=== PATIENT | male | born 1940 | race Caucasian/White ===

== ENCOUNTER 2018-05-06 07:58 | Day surgery (SDC) | payer OTHER, BC ==
[2018-05-06] MEDS ORDERED: NA CHLORIDE 0.9% 1,000 ML ONE (09:31)
[2018-05-06] MEDS ORDERED: LIDOCAINE 1% MPF 5 ML VIAL ONE (11:08)
[2018-05-06] MEDS ORDERED: PROPOFOL 200 MG/20 ML VIAL IV ONE (11:08)
--- NOTE | 2018-05-06 11:44 | ENDO RPT ---
[address], [address] EGD WITH DILATION PROCEDURE REPORT EXAM DATE: 05/06/2018 PATIENT NAME: Mahnaz Baptiste MR#: [id number] BIRTHDATE: 1940 ATTENDING: Chuckie Clarke Dr STATUS: outpatient CABLE TELEVISION TECHNICIAN: Noa Hardin RN and Lainey Damian INDICATIONS: The patient is a 78 yr old Male here for an EGD with dilation due to dysphagia, nausea and vomiting, bloating, and weight loss PROCEDURE PERFORMED: EGD with biopsy and EGD with dilatation over guidewire MEDICATIONS: Per Anesthesia. TOPICAL ANESTHETIC: none CONSENT: The patient understands the risks and benefits of the procedure and understands that these risks include, but are not limited to: sedation, allergic reaction, infection, perforation and/or bleeding. Alternative means of evaluation and treatment include, among others: physical exam, x-rays, and/or surgical intervention. The patient elects to proceed with this endoscopic procedure. DESCRIPTION OF PROCEDURE: During intra-op preparation period all mechanical medical equipment was checked for proper function. Hand hygiene and appropriate measures for infection prevention was taken. After the risks, benefits and alternatives of the procedure were thoroughly explained, Informed consent was verified, confirmed and timeout was successfully executed by the treatment team. The patient was anesthetized with topical anesthesia and the EG-[id number] ([id number]) endoscope was introduced through the mouth and advanced to the second portion of the duodenum. The instrument was slowly withdrawn as the mucosa was fully examined. A small hiatal hernia was found Mild Atrophic gastritis was found in the antrum. Multiple biopsies were obtained and sent to pathology. Dilation was performed at lower esophagus. DILATOR: SIZE(S): RESISTANCE: HEME: APPEARANCE: Dilator: Savary over guidewire Size(s): 14/15/16 mm Resistance: minimal Heme: none Appearance: adequate COMMENT: Retroflexed views revealed a small hiatal hernia. ADVERSE EVENTS: There were no complications. IMPRESSIONS: 1. Non-obstructive dysphagia, s/p 14/15/16 mm Savary esophagitis 2. A small hiatal hernia 3. Mild atrophic gastritis in the antrum, s/p biopsies RECOMMENDATIONS: 1. await biopsy results 2. acid suppression therapy REPEAT EXAM: Chuckie Clarke Dr eSigned: Chuckie Clarke Dr 05/06/2018 11:43 AM cc: Sheldon Merrill CPT CODES: ICD9 CODES: PATIENT NAME: Mahnaz Baptiste MR#: [id number]
[2018-05-06 12:00] VITALS: TEMP 97.9
[2018-05-06 12:42] VITALS: BP 146/50; O2SAT 100
== END 2018-05-06 12:22 | disposition home or self-care (01) ==
LOC: OR 07:58
PROVIDERS: ATTEND Internal Medicine Gastroenterology
PROC: 0DB78ZX Excision of Stomach, Pylorus, Via Natural or Artificial Opening Endoscopic, Diagnostic (ICD-10-PCS; 2018-05-06)
PROC: 0D738ZZ Dilation of Lower Esophagus, Via Natural or Artificial Opening Endoscopic (ICD-10-PCS; 2018-05-06)
PROC: 0DB58ZX Excision of Esophagus, Via Natural or Artificial Opening Endoscopic, Diagnostic (ICD-10-PCS; principal; 2018-05-06 11:30)
DX: K29.40 Chronic atrophic gastritis without bleeding (principal); K20.9 Esophagitis, unspecified; K44.9 Diaphragmatic hernia without obstruction or gangrene; R13.10 Dysphagia, unspecified; Z86.010 Personal history of colon polyps; E11.9 Type 2 diabetes mellitus without complications; Z79.4 Long term (current) use of insulin; I10 Essential (primary) hypertension; I25.2 Old myocardial infarction; F17.210 Nicotine dependence, cigarettes, uncomplicated
CPT/HCPCS: 43239; 43248; 82962; 88305; 88312; J7030

== ENCOUNTER 2018-05-07 04:57 | Emergency (ER) | payer OTHER, BC ==
[2018-05-07] MEDS ORDERED: FLEET ENEMA ADULT PR ONE (05:17)
--- NOTE | 2018-05-07 05:33 | EDPHYS ---
Physician Documentation [facility] Name: Mahnaz Baptiste Age: 78 yrs Sex: Male : 1940 Arrival Date: 05/07/2018 Time: 04:58 Bed 16 Private MD: Barrington Merrill S ED Physician Randall Mane HPI: 05/07 05:13 This 78 yrs old Male presents to ER via Ambulatory with complaints of rn Constipation. 05:13 The patient presents to the emergency department with constipation. Onset: The rn symptoms/episode began/occurred today. Possible causes:. The symptoms are aggravated by nothing. The symptoms are alleviated by nothing. Associated signs and symptoms: Pertinent positives: constipation, Pertinent negatives: fever, GI bleeding, nausea, vomiting. Severity of symptoms: At their worst the symptoms were mild in the emergency department the symptoms are unchanged. The patient has experienced similar episodes in the past. Reports chronic pain, takes oxycontin, has has rectal fecal impaction before, reports happening again, no abd pain/nausea/vomiting/fever, + rectal pressure, cannot poop. . Historical: - Allergies: 05:10 Morphine; bb - Home Meds: 05:10 Lisinopril Oral [Active]; gabapentin oral oral [Active]; OxyContin Oral [Active]; Stool bb Softener oral oral [Active]; Insulin: Regular Sub-Q [Active]; - PMHx: 05:10 Hypertension; Myocardial infarction; Chronic pain; neuropathy; bb - PSHx: 05:10 Knee surgery; STENTS; BACK SURGERY x 5; Cholecystectomy; AMPUTATED FINGER; Appendectomy;bb - Immunization history:: Adult Immunizations up to date, Flu vaccine is not up to date. - Social history:: Smoking status: Patient uses tobacco products, smokes two packs cigarettes per day. Patient/guardian denies using alcohol, street drugs. - Ebola Screening: : Patient negative for fever greater than or equal to 101.5 degrees Fahrenheit, and additional compatible Ebola Virus Disease symptoms Patient denies exposure to infectious person Patient denies travel to an Ebola-affected area in the 21 days before illness onset. - Family history:: not pertinent. - Hospitalizations: : No recent hospitalization is reported. ROS: 05:13 Constitutional: Negative for fever, chills, and weight loss, Eyes: Negative for injury, rn pain, redness, and discharge, Neck: Negative for injury, pain, and swelling, Cardiovascular: Negative for chest pain, palpitations, and edema, Respiratory: Negative for shortness of breath, cough, wheezing, and pleuritic chest pain, Abdomen/GI: Negative for abdominal pain, nausea, vomiting, diarrhea MS/Extremity: Negative for injury and deformity, Skin: Negative for injury, rash, and discoloration, Neuro: Negative for headache, weakness, numbness, tingling, and seizure. Exam: 05:13 Constitutional: This is a well developed, well nourished patient who is awake, alert, rn and in no acute distress. Head/Face: Normocephalic, atraumatic. Eyes: Pupils equal round and reactive to light, extra-ocular motions intact. Lids and lashes normal. Conjunctiva and sclera are non-icteric and not injected. Cornea within normal limits. Periorbital areas with no swelling, redness, or edema. ENT: MMM Cardiovascular: Regular rate and rhythm with a normal S1 and S2. No gallops, murmurs, or rubs. Normal PMI, no JVD. No pulse deficits. Respiratory: Lungs have equal breath sounds bilaterally, clear to auscultation and percussion. No rales, rhonchi or wheezes noted. No increased work of breathing, no retractions or nasal flaring. Abdomen/GI: Soft, non-tender, with normal bowel sounds. No distension or tympany. No guarding or rebound. No evidence of tenderness throughout. MS/ Extremity: Pulses equal, no cyanosis. Neurovascular intact. Full, normal range of motion. Equal circumference. Neuro: Awake and alert, GCS 15, oriented to person, place, time, and situation. Cranial nerves II-XII grossly intact. Motor strength 5/5 in all extremities. Sensory grossly intact. Vital Signs: 05:10 BP 119 / 76; Pulse 88; Resp 18 S; Temp 97.7(O); Pulse Ox 95% on R/A; Weight 94.35 kg bb (R); Height 5 ft. 10 in. (177.80 cm) (R); Pain 8/10; 05:10 Body Mass Index 29.84 (94.35 kg, 177.80 cm) bb MDM: 05:09 Patient medically screened. rn 05:31 Differential diagnosis: constipation. Data reviewed: vital signs, nurses notes, and as rn a result, I will discharge patient. Counseling: I had a detailed discussion with the patient and/or guardian regarding: the historical points, exam findings, and any diagnostic results supporting the discharge/admit diagnosis, the need for outpatient follow up, to return to the emergency department if symptoms worsen or persist or if there are any questions or concerns that arise at home. Medication response: enema. Response to treatment: the patient's symptoms have markedly improved after treatment, the patient's condition has returned to base line, and as a result, I will discharge patient. Special discussion: I discussed with the patient/guardian in detail that at this point there is no indication for admission to the hospital. It is understood, however, that if the symptoms persist or worsen the patient needs to return immediately for re-evaluation. Administered Medications: 05:15 Drug: Fleet Enema 133 ml Route: NH; rv 05:25 Follow up: Response: Other; patient able to move bowel. rv Disposition: 05/07/18 05:32 Discharged to Home. Impression: Constipation, unspecified. - Condition is Stable. - Discharge Instructions: Constipation, Adult. - Medication Reconciliation Form, Thank You Letter, Antibiotic Education, Prescription Opioid Use form. - Follow up: Private Physician; When: As needed; Reason: Recheck today's complaints, Re-evaluation by your physician. - Problem is new. - Symptoms have improved. Signatures: Denise Torres RN RN Randall Oh MD MD rn Vicente, Ronaldo, RN RN rv Corrections: (The following items were deleted from the chart) 05:41 05:32 05/07/2018 05:32 Discharged to Home. Impression: Constipation, unspecified. rv Condition is Stable. Forms are Medication Reconciliation Form, Thank You Letter, Antibiotic Education, Prescription Opioid Use. Follow up: Private Physician; When: As needed; Reason: Recheck today's complaints, Re-evaluation by your physician. Problem is new. Symptoms have improved. rn
--- NOTE | 2018-05-07 05:33 | ER ---
Nurse's Notes [facility] Name: Mahnaz Baptiste Age: 78 yrs Sex: Male : 1940 Arrival Date: 05/07/2018 Time: 04:58 Bed 16 Private MD: Barrington Merrill S Diagnosis: Constipation, unspecified Presentation: 05/07 05:07 Presenting complaint: Patient states: he is constipated since this morning and is bb having rectal pain 8/ pt takes oxycontin for chronic pain along with a stool softner. Transition of care: patient was not received from another setting of care. Onset of symptoms was May 07, 2018. Risk Assessment: Do you want to hurt yourself or someone else? Patient reports no desire to harm self or others. Initial Sepsis Screen: Does the patient meet any 2 criteria? No. Patient's initial sepsis screen is negative. Does the patient have a suspected source of infection? No. Patient's initial sepsis screen is negative. Care prior to arrival: None. 05:07 Method Of Arrival: Ambulatory bb 05:07 Acuity: ZIA 3 bb Historical: - Allergies: 05:10 Morphine; bb - Home Meds: 05:10 Lisinopril Oral [Active]; gabapentin oral oral [Active]; OxyContin Oral [Active]; Stool bb Softener oral oral [Active]; Insulin: Regular Sub-Q [Active]; - PMHx: 05:10 Hypertension; Myocardial infarction; Chronic pain; neuropathy; bb - PSHx: 05:10 Knee surgery; STENTS; BACK SURGERY x 5; Cholecystectomy; AMPUTATED FINGER; Appendectomy;bb - Immunization history:: Adult Immunizations up to date, Flu vaccine is not up to date. - Social history:: Smoking status: Patient uses tobacco products, smokes two packs cigarettes per day. Patient/guardian denies using alcohol, street drugs. - Ebola Screening: : Patient negative for fever greater than or equal to 101.5 degrees Fahrenheit, and additional compatible Ebola Virus Disease symptoms Patient denies exposure to infectious person Patient denies travel to an Ebola-affected area in the 21 days before illness onset. - Family history:: not pertinent. - Hospitalizations: : No recent hospitalization is reported. Screenin:12 Abuse screen: Denies threats or abuse. Denies injuries from another. Nutritional rv screening: No deficits noted. Tuberculosis screening: No symptoms or risk factors identified. Fall Risk None identified. Assessment: 05:11 General: Appears in no apparent distress. uncomfortable, Behavior is calm, cooperative. rv Pain: Denies pain. Neuro: Level of Consciousness is awake, alert, obeys commands, Oriented to person, place, time, situation. Cardiovascular: Capillary refill < 3 seconds. Respiratory: Airway is patent. GI: Bowel sounds present X 4 quads. Abd is soft and non tender X 4 quads. : No signs and/or symptoms were reported regarding the genitourinary system. EENT: No signs and/or symptoms were reported regarding the EENT system. Derm: Skin is intact. Musculoskeletal: No signs and/or symptoms reported regarding the musculoskeletal system. Vital Signs: 05:10 BP 119 / 76; Pulse 88; Resp 18 S; Temp 97.7(O); Pulse Ox 95% on R/A; Weight 94.35 kg bb (R); Height 5 ft. 10 in. (177.80 cm) (R); Pain 8/10; 05:10 Body Mass Index 29.84 (94.35 kg, 177.80 cm) bb ED Course: 04:58 Patient arrived in ED. ds1 04:58 Barrington Merrill MD is Private Physician. ds1 05:08 Triage completed. bb 05:09 Randall Mane MD is Attending Physician. rn 05:10 Arm band placed on Patient placed in an exam room, on a stretcher, on pulse oximetry. bb Family accompanied patient. 05:12 Patient has correct armband on for positive identification. Placed in gown. Bed in low rv position. Call light in reach. Side rails up X2. Adult w/ patient. Pulse ox on. NIBP on. 05:26 Fleets enema given. Patient tolerated well able to move bowel.. rv 05:41 No provider procedures requiring assistance completed. Patient did not have IV access rv during this emergency room visit. Administered Medications: 05:15 Drug: Fleet Enema 133 ml Route: [place]; rv 05:25 Follow up: Response: Other; patient able to move bowel. rv Outcome: 05:32 Discharge ordered by . rn 05:41 Discharged to home ambulatory. rv 05:41 Condition: improved 05:41 Discharge instructions given to patient, Instructed on discharge instructions. 05:41 Patient left the ED. rv Signatures: Melania Walden ds1 Denise Torres RN RN bb Randall Mane MD MD rn Vicente, Ronaldo, RN RN rv
[2018-05-07 05:45] VITALS: BP 119/76; TEMP 97.7; O2SAT 95
== END 2018-05-07 05:41 | disposition home or self-care (01) ==
LOC: ER 04:57
DX: K59.00 Constipation, unspecified (principal); I10 Essential (primary) hypertension; I25.2 Old myocardial infarction; F17.210 Nicotine dependence, cigarettes, uncomplicated
CPT/HCPCS: 99284

== ENCOUNTER 2018-08-29 10:10 | Emergency (ER) | payer OTHER, BC ==
--- NOTE | 2018-08-29 10:59 | ER ---
Nurse's Notes [facility] Name: Mahnaz Baptiste Age: 78 yrs Sex: Male : 1940 Arrival Date: 08/29/2018 Time: 10:23 Bed 13 Private MD: Diagnosis: Constipation, unspecified Presentation: 08/29 10:36 Presenting complaint: Patient states: has not had a BM in 8 days, hx of constipation, iw has been taking laxatives and stool softeners with no relief. Transition of care: patient was not received from another setting of care. Onset of symptoms was August 21, 2018. Risk Assessment: Do you want to hurt yourself or someone else? Patient reports no desire to harm self or others. Initial Sepsis Screen: Does the patient meet any 2 criteria? No. Patient's initial sepsis screen is negative. Does the patient have a suspected source of infection? No. Patient's initial sepsis screen is negative. Care prior to arrival: None. 10:36 Method Of Arrival: Wheelchair iw 10:36 Acuity: ZIA 3 iw Historical: - Allergies: 10:38 Morphine; iw - PMHx: 10:38 Chronic pain; Hypertension; Myocardial infarction; neuropathy; iw - PSHx: 10:38 Knee surgery; Heart stents; BACK SURGERY x 5; AMPUTATED FINGER; iw 10:40 Fentanyl Pain Pump; aa5 - Immunization history:: Adult Immunizations not up to date. - Social history:: Smoking status: Patient uses tobacco products, smokes one pack cigarettes per day. - Ebola Screening: : Patient negative for fever greater than or equal to 101.5 degrees Fahrenheit, and additional compatible Ebola Virus Disease symptoms Patient denies exposure to infectious person Patient denies travel to an Ebola-affected area in the 21 days before illness onset No symptoms or risks identified at this time. Screenin:40 Abuse screen: Denies threats or abuse. Nutritional screening: No deficits noted. aa5 Tuberculosis screening: No symptoms or risk factors identified. Assessment: 10:40 General: Appears comfortable, Behavior is calm, cooperative. Pain: Complains of pain in aa5 right lower quadrant and left lower quadrant Pain does not radiate. Pain currently is 5 out of 10 on a pain scale. Quality of pain is described as pressure, Pain began 2-3 days ago. Is continuous. Neuro: Level of Consciousness is awake, alert, obeys commands, Oriented to person, place, time, situation. Cardiovascular: Heart tones S1 S2 present Rhythm is regular. Respiratory: Airway is patent Respiratory effort is even, unlabored, Respiratory pattern is regular, symmetrical, Breath sounds are clear bilaterally. GI: Abdomen is round non-distended, Pt reports last BM was 8 days ago Bowel sounds present X 4 quads. Abd is soft and non tender X 4 quads. Reports lower abdominal pain, Patient currently denies nausea, vomiting. : No signs and/or symptoms were reported regarding the genitourinary system. Denies inability to void. EENT: No signs and/or symptoms were reported regarding the EENT system. Derm: Skin is pink, warm \\T\\ dry. Musculoskeletal: Range of motion: intact in all extremities. 10:58 Reassessment: Patient is alert, oriented x 3, equal unlabored respirations, skin aa5 warm/dry/pink. Vital Signs: 10:38 BP 127 / 54; Pulse 80; Resp 16; Temp 98.2; Pulse Ox 96% on R/A; Weight 86.18 kg; Height iw 5 ft. 10 in. (177.80 cm); Pain 7/10; 10:50 BP 125 / 60; Pulse 78; Resp 16 S; Pulse Ox 97% on R/A; aa5 10:38 Body Mass Index 27.26 (86.18 kg, 177.80 cm) iw ED Course: 10:23 Patient arrived in ED. tw3 10:35 Tootie Parks, RN is Primary Nurse. aa5 10:37 Triage completed. iw 10:38 Arm band placed on. iw 10:40 Patient has correct armband on for positive identification. Bed in low position. Call aa5 light in reach. Side rails up X2. Adult w/ patient. 10:44 Geovanni Briones NP is PHCP. pm1 10:44 Benito Corley MD is Attending Physician. pm1 10:58 No provider procedures requiring assistance completed. aa5 10:58 Patient did not have IV access during this emergency room visit. aa5 Administered Medications: No medications were administered Outcome: 10:58 Discharge ordered by . pm1 10:58 Discharged to home via wheelchair, with family. aa5 10:58 Condition: stable 10:58 Discharge instructions given to N/A. Pt left before d/c instructions. Pt states "I'm aa5 just going to buy an enema at the pharmacy" 11:00 Patient left the ED. aa5 Signatures: Chastity Dinh RN RN iw Tootie Parks RN RN aa5 Geovanni Briones, FIBERGLASS TECHNICIAN FIBERGLASS TECHNICIAN pm1 Levi, Eli tw3 Corrections: (The following items were deleted from the chart) 10:37 10:36 Acuity: ZIA 4 florencio matias
--- NOTE | 2018-08-29 10:59 | EDPHYS ---
Physician Documentation [facility] Name: Mahnaz Baptiste Age: 78 yrs Sex: Male : 1940 Arrival Date: 08/29/2018 Time: 10:23 Bed 13 Private MD: ED Physician Benito Corley HPI: 08/29 10:57 This 78 yrs old Male presents to ER via Wheelchair with complaints of pm1 Constipation. 10:57 Onset: The symptoms/episode began/occurred 8 day(s) ago. Associated signs and symptoms: pm1 Pertinent negatives: nausea, vomiting, and diarrhea, chest pain, fever, shortness of breath. Modifying factors: The symptoms are alleviated by nothing, the symptoms are aggravated by medication(s), pain medications. Severity of pain: in the emergency department the pain is a 0 / 10. The patient has experienced similar episodes in the past, several times. Patient without bowel movement for 8 days. Feels like the bowel movement is just about to come out. Historical: - Allergies: 10:38 Morphine; iw - PMHx: 10:38 Chronic pain; Hypertension; Myocardial infarction; neuropathy; iw - PSHx: 10:38 Knee surgery; Heart stents; BACK SURGERY x 5; AMPUTATED FINGER; iw 10:40 Fentanyl Pain Pump; aa5 - Immunization history:: Adult Immunizations not up to date. - Social history:: Smoking status: Patient uses tobacco products, smokes one pack cigarettes per day. - Ebola Screening: : Patient negative for fever greater than or equal to 101.5 degrees Fahrenheit, and additional compatible Ebola Virus Disease symptoms Patient denies exposure to infectious person Patient denies travel to an Ebola-affected area in the 21 days before illness onset No symptoms or risks identified at this time. ROS: 10:57 Constitutional: Negative for fever, chills, and weight loss, Cardiovascular: Negative pm1 for chest pain, palpitations, and edema, Respiratory: Negative for shortness of breath, cough, wheezing, and pleuritic chest pain, Back: Negative for injury and pain, Neuro: Negative for headache, weakness, numbness, tingling, and seizure. 10:57 Abdomen/GI: Positive for constipation, Negative for abdominal pain, nausea, vomiting, and diarrhea. Exam: 10:57 Constitutional: This is a well developed, well nourished patient who is awake, alert, pm1 and in no acute distress. 10:57 Unable to obtain exam due to Patient refused physical examination. He wants to leave to purchase an enema at the local store. Vital Signs: 10:38 BP 127 / 54; Pulse 80; Resp 16; Temp 98.2; Pulse Ox 96% on R/A; Weight 86.18 kg; Height iw 5 ft. 10 in. (177.80 cm); Pain 7/10; 10:50 BP 125 / 60; Pulse 78; Resp 16 S; Pulse Ox 97% on R/A; aa5 10:38 Body Mass Index 27.26 (86.18 kg, 177.80 cm) iw MDM: 10:57 Patient medically screened. pm1 10:57 Data reviewed: vital signs. Counseling: I had a detailed discussion with the patient pm1 and/or guardian regarding: the historical points, exam findings, and any diagnostic results supporting the discharge/admit diagnosis, the need for outpatient follow up, to return to the emergency department if symptoms worsen or persist or if there are any questions or concerns that arise at home. 10:57 Refusal of service: The patient/guardian displays adequate decision making capability pm1 and despite a detailed discussion of alternatives, benefits, risks, and consequences refuses: Physical evaluation and treatment for his constipation. Patient wants to go home and purchase an enema from the local store. instructed that patient that he may return at any tome to the emergency department for treatment and evaluation of his constipation. Administered Medications: No medications were administered Disposition: 11:29 Co-signature as Attending Physician, Benito Corley MD I agree with the assessment and kdr plan of care. Disposition: 08/29/18 10:58 Discharged to Home. Impression: Constipation, unspecified. - Condition is Undetermined. - Discharge Instructions: Constipation, Adult. - Medication Reconciliation Form, Thank You Letter, Prescription Opioid Use form. - Follow up: Emergency Department; When: As needed; Reason: Recheck today's complaints, Continuance of care, Re-evaluation by your physician. Follow up: Private Physician; When: As needed; Reason: Recheck today's complaints, Continuance of care, Re-evaluation by your physician. - Problem is new. - Symptoms are unchanged. Signatures: Benito Corley MD MD kdr Chastity Dinh RN RN iw Tootie Parks RN RN aa5 Geovanni Briones, THREAD REELER THREAD REELER pm1 Corrections: (The following items were deleted from the chart) 11:00 10:58 08/29/2018 10:58 Discharged to Home. Impression: Constipation, unspecified. aa5 Condition is Undetermined. Forms are Medication Reconciliation Form, Thank You Letter, Antibiotic Education, Prescription Opioid Use. Follow up: Emergency Department; When: As needed; Reason: Recheck today's complaints, Continuance of care, Re-evaluation by your physician. Follow up: Private Physician; When: As needed; Reason: Recheck today's complaints, Continuance of care, Re-evaluation by your physician. Problem is new. Symptoms are unchanged. pm1
[2018-08-29 11:04] VITALS: BP 127/54; TEMP 98.2; O2SAT 96
== END 2018-08-29 11:00 | disposition home or self-care (01) ==
LOC: ER 10:10
DX: K59.00 Constipation, unspecified (principal); F17.210 Nicotine dependence, cigarettes, uncomplicated; Z88.6 Allergy status to analgesic agent
CPT/HCPCS: 99281

== ENCOUNTER 2019-07-04 10:38 | Emergency (ER) | payer OTHER, BC ==
--- OUTSIDE RECORDS SUMMARY | 2019-07-04 10:40 | XMS REPORT ---
:1940 [facility] Address [address] [place] [address] [place] [id number] Care Team Providers Name Role Phone Unavailable Unavailable Unavailable Problems This patient has no known problems. Allergies, Adverse Reactions, Alerts This patient has no known allergies or adverse reactions. Medications This patient has no known medications. Encounters Start End Encounter Admission Attending Care Care Encounter Date/Time Date/Time Type Type Clinicians Facility Department ID 2019-06-24 2019-06-23 Inpatient [id number] 13:43:00 15:31:00
--- OUTSIDE RECORDS SUMMARY | 2019-07-04 10:42 | XMS REPORT | Summary of Care ---
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 Encounter Details Date Type Department Care Team Description 07/03/2019 Orders Only [facility] Doctor Unassigned, No [address] [facility] [place], [place] [id number] [place] [id number] Allergies Active Allergy Reactions Severity Noted Date Comments Morphine Nausea and/or Vomiting High 10/21/2009 documented as of this encounter (statuses as of 07/03/2019) Medications Medication Sig Dispensed Refills Start Date End Date Status Insulin Syringe-Needle inject 35 Units 100 Syringe 0 10/08/2016 Active U-100 (SURE COMFORT under the skin INSULIN SYRINGE) 1 mL daily. 31 gauge x 5/16 Syrg terazosin 2 mg capsule Take 2 mg by 0 08/16/2017 Active mouth daily. HUMALOG MIX 75-25 35 UNITS Q AM, 15 mL 2 12/20/2017 Active KWIKPEN 100 unit/mL 25 UNITS Q PM (75-25) injection lisinopril 10 mg tablet Take 1 tablet 30 tablet 5 05/09/2018 Active by mouth daily. lactulose 10 gram/15 mL Take 15 mL by 900 mL 2 05/09/2018 Active (15 mL) Soln mouth 2 (two) times daily. metoclopramide HCl Take 1 tablet 120 tablet 2 07/15/2018 Active (REGLAN) 10 mg tablet by mouth before meals and at bedtime. EDLLVAKLMXIBS-TRMQ-KLHK TAKE ONE 50 capsule 5 09/09/2018 Active LBITAL per capsule CAPSULE BY MOUTH EVERY FOUR HOURS NEEDED FOR PAIN ondansetron (ZOFRAN Take 1 tablet 60 tablet 1 01/01/2019 Active ODT) 8 mg by mouth every disintegrating 8 (eight) hours tabletIndications: as needed for Vomiting, Nausea and intractability of Vomiting (N/V). vomiting not specified, presence of nausea not specified, unspecified vomiting type SIMVASTATIN 20 mg TAKE ONE TABLET 30 tablet 3 02/09/2019 Active tablet BY MOUTH EVERY DAY ALPRAZOLAM 1 mg TAKE ONE TABLET 90 tablet 2 02/09/2019 Active tabletIndications: BY MOUTH THREE Anxiety TIMES A DAY NEEDED FOR ANXIETY blood sugar diagnostic USE DIRECTED 100 Strip 2 02/23/2019 Active (TRUE METRIX GLUCOSE 3 TIMES A DAY TEST STRIP) strip AND NEEDED TO MONITOR BLOOD GLUCOSE, Dx: E11.9 omeprazole 40 mg Take 1 capsule 30 capsule 0 03/03/2019 Active capsuleIndications: by mouth daily. Gastroesophageal reflux disease, esophagitis presence not specified GABAPENTIN 600 mg TAKE ONE TABLET 90 tablet 4 03/16/2019 Active tablet BY MOUTH THREE TIMES DAILY aspirin 81 mg chewable Take 1 tablet 30 tablet 0 04/26/2019 Active tabletIndications: COPD by mouth daily. (chronic obstructive pulmonary disease) with acute bronchitis ipratropium-albuterol Inhale 3 mL 120 Vial 0 04/25/2019 Active 0.5 mg-3 mg(2.5 mg every 4 (four) base)/3 mL nebulizer hours as needed solutionIndications: for Wheezing. COPD (chronic obstructive pulmonary disease) with acute bronchitis fluticasone-salmeterol Inhale 1 Puff 60 Each 0 04/25/2019 Active 250-50 mcg/dose every 12 inhalation (twelve) hours. diskIndications: COPD (chronic obstructive pulmonary disease) with acute bronchitis PROAIR HFA 90 INHALE 2 PUFFS 8.5 g 0 04/29/2019 Active mcg/actuation inhaler BY MOUTH EVERY 6 HOURS NEEDED FOR SHORTNESS OF BREATH azithromycin 250 mg Take 1 tablet 6 tablet 0 04/30/2019 Active tablet by mouth daily. Take 500 mg day 1, then 250 mg days 2 to 5. mupirocin 2 % Apply to 22 g 0 05/13/2019 Active ointmentIndications: area(s) 3 Open wound of left (three) times knee, leg, and ankle daily. with complication, subsequent encounter sulfamethoxazole-trimet Take 1 tablet 20 tablet 0 05/13/2019 Active hoprim (BACTRIM DS) by mouth 2 800-160 mg per (two) times tabletIndications: Open daily. wound of left knee, leg, and ankle with complication, subsequent encounter traZODONE 50 mg TAKE 1 TABLET 30 tablet 5 05/27/2019 Active tabletIndications: BY MOUTH AT Insomnia, unspecified BEDTIME type citalopram 40 mg Take 1 tablet 30 tablet 5 05/27/2019 Active tabletIndications: by mouth daily. Depression, unspecified depression type oxyCODONE CR 80 mg 12 Take 1 tablet 90 tablet 0 06/24/2019 Active hour tabletIndications: by mouth 3 Primary osteoarthritis (three) times involving multiple daily as needed joints for Pain. documented as of this encounter (statuses as of 07/03/2019) Active Problems Problem Noted Date CARCAMO (dyspnea on exertion) 04/26/2019 Chronic atrial fibrillation 04/26/2019 Pneumonia 04/23/2019 Intractable vomiting 04/29/2018 Elevated troponin 10/20/2017 Coronary artery disease involving [place] coronary artery of [place] heart 10/20 without angina pectoris Vomiting 10/20/2017 Stage 3 chronic kidney disease 10/20/2017 Obesity (BMI 30-39.9) 11/06/2016 JUAREZ (generalized anxiety disorder) 09/28/2015 Insomnia 09/28/2015 Sleep apnea 09/28/2015 Hypercholesterolemia 09/28/2015 Reflux esophagitis 09/28/2015 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, uncontrolled(250.62) Diabetes mellitus 10/21/2009 Essential hypertension, benign 10/21/2009 Osteoarthritis of multiple joints 10/21/2009 HLD (hyperlipidemia) 10/21/2009 Overview: ICD10 Diagnosis Term Director Industrial Nursing Utility CARMEN (obstructive sleep apnea) 10/21/2009 documented as of this encounter (statuses as of 07/03/2019) Immunizations Name Administration Dates Next Due Td 02/05/2018 Tdap 11/24/2015 documented as of this encounter Social History Tobacco Use Types Packs/Day Years Used Date Current Every Day Smoker Cigarettes 1 40 Smokeless Tobacco: Never Used Comments: 1 pack/day Alcohol Use Drinks/Week oz/Week Comments No 0 Standard drinks or equivalent 0.0 Sex Assigned at Date Recorded Not on file Job Start Date Occupation Industry Not on file Not on file Not on file Travel History Travel Start Travel End No recent travel history available. 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 Clinical Medical Tristan Nails, DO [address] [place] [address] Arrived Laboratory 1, [facility] 07/23/2019 Office Visit Family Medicine Barrington Merrill MD [address] [place] [phone] Health Maintenance Due Date Last Done Comments EYE EXAM 1950 FOOT EXAM 1959 Zoster Recombinant Vaccine 1991 (SHINGRIX) (1 of 2) Medicare Wellness Visit 2006 PNEUMOCOCCAL VACCINES 65+ (1 of 2 2006 - PCV13) INFLUENZA VACCINE (Retired 07/12/2019 version) LDL-C 10/04/2019 10/04/2018 HgA1C 10/23/2019 04/23/2019, 03/26/2019, 01/01/2019, Additional history exists URINE MICROALBUMIN 01/01/2020 01/01/2019, 10/04/2018, 03/01/2018, Additional history exists LUNG CANCER SCREEN: Recommended 04/23/2020 04/23/2019 for age 55-80 with 30 + pack year history CREATININE (SERUM) 04/24/2020 04/24/2019, 04/23/2019, 03/26/2019, Additional history exists DTaP,Tdap,and Td Vaccines (3 - Td) 02/06/2028 02/05/2018, 11/24/2015 documented as of this encounter Implants Implanted Type Area Envelope Addresser Device Shelf Model / Identifier Expiration Serial / Lot Date Lens LENS Right: Eye Mello 08/10/2020 [id number] / Implanted: Qty: 1 on 12/14/2015 by Nikhil Hou MD at [facility] [id number] / [id number] Acrysof Iq LENS Left: Eye Mello 07/11/2020 [id number] / Implanted: Qty: 1 on 01/11/2016 by Nikhil Hou MD at [facility] [id number] / [id number] Sutureless Pump Connector Revision Kit Pump Right: Medtronic 8578 / Implanted: Qty: 1 on 01/14/2017 by Leonel Aguilar MD at [facility] Abdomen [id number] / [id number] Synchromed Ii Programmable Pump Pump Right: Medtronic 05/24/2018 8637- 20 / Implanted: Qty: 1 on 01/14/2017 by Leonel Aguilar MD at [facility] Abdomen [id number] / [id number] documented as of this encounter Procedures Procedure Name Priority Date/Time Associated Diagnosis Comments ASSIGNMENT OF BENEFITS Routine 07/03/2019 8:57 AM CDT documented in this encounter Results Not on filedocumented in this encounter Insurance Payer Benefit Plan / Subscriber ID Effective Phone Address Type Group Dates MEDICARE MEDICARE PART A xxxxxxxxxxx 1998-Pres [phone] [address] Medicare & B ent [phone] [id number] [place] [address] BCBS OF BCBS [id number] 2017-Pres [phone] Medicare [place] TRADITION[place] ent [phone] [id number] [place] [address] documented as of this encounter Advance Directives Name Relationship Healthcare Agent Communication Relationship Stefany Baptiste Spouse Primary healthcare agent
--- OUTSIDE RECORDS SUMMARY | 2019-07-04 10:42 | XMS REPORT | Summary of Care ---
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 [address] [place] [address] Allergies Active Allergy Reactions Severity Noted Date Comments Morphine Nausea and/or Vomiting High 10/21/2009 documented as of this encounter (statuses as of 06/24/2019) Medications Medication Sig Dispensed Refills Start End Date Status Date Insulin inject 35 100 Syringe 0 Active Syringe-Needle U-100 Units under 6 (SURE COMFORT INSULIN the skin SYRINGE) 1 mL 31 daily. gauge x 5/16 Syrg terazosin 2 mg Take 2 mg by 0 Active capsule mouth daily. 7 HUMALOG MIX 75-25 35 UNITS Q AM, 15 mL 2 Active KWIKPEN 100 unit/mL 25 UNITS Q PM 8 (75-25) injection lisinopril 10 mg Take 1 tablet 30 tablet 5 Active tablet by mouth 8 daily. lactulose 10 gram/15 Take 15 mL by 900 mL 2 Active mL (15 mL) Soln mouth 2 (two) 8 times daily. metoclopramide HCl Take 1 tablet 120 tablet 2 Active (REGLAN) 10 mg tablet by mouth 8 before meals and at bedtime. CLQKVGHKKAMED-OMOX-DM TAKE ONE 50 capsule 5 Active TALBITAL per capsule CAPSULE BY 8 MOUTH EVERY FOUR HOURS NEEDED FOR PAIN ondansetron (ZOFRAN Take 1 tablet 60 tablet 1 Active ODT) 8 mg by mouth every 9 disintegrating 8 (eight) tabletIndications: hours as Vomiting, needed for intractability of Nausea and vomiting not Vomiting specified, presence (N/V). of nausea not specified, unspecified vomiting type SIMVASTATIN 20 mg TAKE ONE 30 tablet 3 Active tablet TABLET BY 9 MOUTH EVERY DAY ALPRAZOLAM 1 mg TAKE ONE 90 tablet 2 Active tabletIndications: TABLET BY 9 Anxiety MOUTH THREE TIMES A DAY NEEDED FOR ANXIETY blood sugar USE 100 Strip 2 Active diagnostic (TRUE DIRECTED 3 9 METRIX GLUCOSE TEST TIMES A DAY STRIP) strip AND NEEDED TO MONITOR BLOOD GLUCOSE, Dx: E11.9 omeprazole 40 mg Take 1 capsule 30 capsule 0 Active capsuleIndications: by mouth 9 Gastroesophageal daily. reflux disease, esophagitis presence not specified GABAPENTIN 600 mg TAKE ONE 90 tablet 4 Active tablet TABLET BY 9 MOUTH THREE TIMES DAILY aspirin 81 mg Take 1 tablet 30 tablet 0 Active chewable by mouth 9 tabletIndications: daily. COPD (chronic obstructive pulmonary disease) with acute bronchitis ipratropium-albuterol Inhale 3 mL 120 Vial 0 Active 0.5 mg-3 mg(2.5 mg every 4 (four) 9 base)/3 mL nebulizer hours as solutionIndications: needed for COPD (chronic Wheezing. obstructive pulmonary disease) with acute bronchitis fluticasone-salmetero Inhale 1 Puff 60 Each 0 Active l 250-50 mcg/dose every 12 9 inhalation (twelve) diskIndications: COPD hours. (chronic obstructive pulmonary disease) with acute bronchitis PROAIR HFA 90 INHALE 2 PUFFS 8.5 g 0 Active mcg/actuation inhaler BY MOUTH EVERY 9 6 HOURS NEEDED FOR SHORTNESS OF BREATH azithromycin 250 mg Take 1 tablet 6 tablet 0 Active tablet by mouth 9 daily. Take 500 mg day 1, then 250 mg days 2 to 5. mupirocin 2 % Apply to 22 g 0 Active ointmentIndications: area(s) 3 9 Open wound of left (three) times knee, leg, and ankle daily. with complication, subsequent encounter sulfamethoxazole-trim Take 1 tablet 20 tablet 0 Active ethoprim (BACTRIM DS) by mouth 2 9 800-160 mg per (two) times tabletIndications: daily. Open wound of left knee, leg, and ankle with complication, subsequent encounter traZODONE 50 mg TAKE 1 TABLET 30 tablet 5 Active tabletIndications: BY MOUTH AT 9 Insomnia, unspecified BEDTIME type citalopram 40 mg Take 1 tablet 30 tablet 5 Active tabletIndications: by mouth 9 Depression, daily. unspecified depression type oxyCODONE CR 80 mg 12 Take 1 tablet 90 tablet 0 Active hour by mouth 3 9 tabletIndications: (three) times Primary daily as osteoarthritis needed for involving multiple Pain. joints oxyCODONE CR 80 mg 12 Take 1 tablet 90 tablet 0 06/24/20 Discontinued hour by mouth 3 9 19 tabletIndications: (three) times Primary daily as osteoarthritis needed for involving multiple Pain. joints documented as of this encounter (statuses as of 06/24/2019) Active Problems Problem Noted Date CARCAMO (dyspnea on exertion) 04/26/2019 Chronic atrial fibrillation 04/26/2019 Pneumonia 04/23/2019 Intractable vomiting 04/29/2018 Elevated troponin 10/20/2017 Coronary artery disease involving [place] coronary artery of [place] heart 10/20 without angina pectoris Vomiting 10/20/2017 Stage 3 chronic kidney disease 10/20/2017 Obesity (BMI 30-39.9) 11/06/2016 JUAREZ (generalized anxiety disorder) 09/28/2015 Insomnia 09/28/2015 Sleep apnea 09/28/2015 Hypercholesterolemia 09/28/2015 Reflux esophagitis 09/28/2015 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, uncontrolled(250.62) Diabetes mellitus 10/21/2009 Essential hypertension, benign 10/21/2009 Osteoarthritis of multiple joints 10/21/2009 HLD (hyperlipidemia) 10/21/2009 Overview: ICD10 Diagnosis Term 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 CARMEN (obstructive sleep apnea) 10/21/2009 documented as of this encounter (statuses as of 06/24/2019) Immunizations Name Administration Dates Next Due Td [...] Treatment Date Type Specialty Care Team Description 07/23/2019 Office Visit Family Medicine Barrington Merrill MD [address] [place] [phone] Health Maintenance Due Date Last Done Comments EYE EXAM 1951 FOOT EXAM 1959 Zoster Recombinant Vaccine 1991 (SHINGRIX) (1 of 2) Medicare Wellness Visit 2006 PNEUMOCOCCAL VACCINES 65+ (1 of 2 2006 - PCV13) INFLUENZA VACCINE 07/12/2019 LDL-C 10/04/2019 10/04/2018 HgA1C 10/23/2019 04/23/2019, 03/26/2019, 01/01/2019, Additional history exists URINE MICROALBUMIN 01/01/2020 01/01/2019, 10/04/2018, 03/01/2018, Additional history exists LUNG CANCER SCREEN: Recommended 04/23/2020 04/23/2019 for age 55-80 with 30 + pack year history CREATININE (SERUM) 04/24/2020 04/24/2019, 04/23/2019, 03/26/2019, Additional history exists DTaP,Tdap,and Td Vaccines (3 - Td) 02/06/2028 02/05/2018, 11/24/2015 documented as of this encounter Implants Implanted Type Area Manager Med Surg Device Shelf Model / Identifier Expiration Serial / Lot Date Lens LENS Right: Eye Mello 08/10/2020 [id number] / Implanted: Qty: 1 on 12/14/2015 by Nikhil Hou MD at [facility] [id number] / [id number] Acrysof Iq LENS Left: Eye Mello 07/11/2020 [id number] / Implanted: Qty: 1 on 01/11/2016 by Nihkil Hou MD at [facility] [id number] / [id number] Sutureless Pump Connector Revision Kit Pump Right: Medtronic 8578 / Implanted: Qty: 1 on 01/14/2017 by Leonel Aguilar MD at [facility] Abdomen [id number] / [id number] Synchromed Ii Programmable Pump Pump Right: Medtronic 05/24/2018 8637- 20 / Implanted: Qty: 1 on 01/14/2017 by Leonel Aguilar MD at [facility] Abdomen [id number] / [id number] documented as of this encounter Results Not on filedocumented in this encounter Visit Diagnoses Diagnosis Primary osteoarthritis involving multiple joints documented in this encounter Insurance Payer Benefit Plan / Subscriber ID Effective Phone Address Type Group Dates MEDICARE MEDICARE PART A xxxxxxxxxxx 1998-Pres [phone] [address] Medicare & B ent [phone] [id number] [place] [phone] BCBS OF BCBS [id number] 2017-Pres [phone] [address] Medicare [place] TRADITION[place] ent [id number] [place] [address] documented as of this encounter Advance Directives Name Relationship Healthcare Agent Communication Relationship Stefany Baptiste Spouse Primary healthcare agent
[2019-07-04] MEDS ORDERED: NA CHLORIDE 0.9% 1,000 ML ONE (11:12)
[2019-07-04 11:29] LABS: Absolute Lymphocytes (CBC) 1.3 K/uL (0.7-4.9); Basophils % 0.6 % (0-1.3); Hematocrit 26.8 % (39.6-49.0); Lymphocytes % 10.7 % (15.3-44.8); MPV 8.6 fL (7.6-11.3)
[2019-07-04 11:42] LABS: Protime INR 1.08
[2019-07-04 11:43] LABS: Albumin 2.7 g/dL (3.4-5.0); Bilirubin Direct 0.7 mg/dL (0-0.2); Bilirubin Total 1.9 mg/dL (0.2-1.0); Magnesium 2.1 mg/dL (1.8-2.4); Potassium 4.1 mmol/L (3.5-5.1); Protein, Total 5.8 g/dL (6.4-8.2); Troponin (Emerg Dept Use Only) 0.04 ng/mL (0.0-0.045)
[2019-07-04 12:17] LABS: Urine White Blood Cell Casts OK
[2019-07-04 12:18] LABS: Anisocytosis 2+; Blood Morphology Comment NOTED (NOT SEEN); Elliptocytes 2+; Platelet Estimate ADEQ
[2019-07-04 13:47] LABS: Urine Blood NEGATIVE (NEG); Urine Glucose NEGATIVE (NEG); Urine Protein NEGATIVE (NEG); Urine Specific Gravity 1.015 (1.005-1.030)
--- NOTE | 2019-07-04 13:57 | ER ---
Nurse's Notes [facility] Name: Mahnaz Baptiste Age: 79 yrs Sex: Male : 1940 Arrival Date: 07/04/2019 Time: 10:39 Bed 6 Private MD: Barrington Merrill S Diagnosis: Hypotension;Unspecified kidney failure;Pain in left leg-sp left leg bypass 06/24;Anemia, unspecified;Retention of urine Presentation: 07/04 10:49 Presenting complaint: states: Had recent by-pass sx to L leg, d/c from [facility] 07/02, sent home on new medication Metoprolol 12.5 to be taken daily, took yesterday morning w/ other BP medications, BP this morning low w/ systolic in 70s, pt also reports that testicles are "black". Transition of care: patient was not received from another setting of care. Onset of symptoms was July 04, 2019. Risk Assessment: Do you want to hurt yourself or someone else? Patient reports no desire to harm self or others. Initial Sepsis Screen: Does the patient meet any 2 criteria? No. Patient's initial sepsis screen is negative. Does the patient have a suspected source of infection? No. Patient's initial sepsis screen is negative. Care prior to arrival: None. 10:49 Method Of Arrival: Wheelchair 10:49 Acuity: ZIA 1 ph Triage Assessment: 11:00 General: Appears in no apparent distress. Behavior is calm, cooperative, appropriate ph for age. Pain: Denies pain. Neuro: Level of Consciousness is awake, obeys commands, lethargic, Oriented to person, place, time, situation, Reports dizziness, weakness. Cardiovascular: Capillary refill is sluggish Patient's skin is warm and dry. Respiratory: Airway is patent Respiratory effort is even, unlabored. Derm: Skin is fragile, is thin, Skin is pale. Historical: - Allergies: 11:00 Morphine; ph - Home Meds: 11:00 alprazolam 1 mg Oral tab 1 tab 3 times per day for PRN [Active]; amiodarone 200 mg Oral ph tab 1 tab once daily [Active]; ProAir HFA 90 mcg/actuation inhalation HFAA 2 puffs every 6 hours [Active]; aspirin 81 mg Oral TbEC 1 tab once daily [Active]; citalopram 40 mg tab 1 tab once daily [Active]; docusate sodium 100 mg Oral tab 1 tab once daily [Active]; famotidine 20 mg Oral tab 1 tab once daily [Active]; gabapentin 600 mg oral tab 1 tab 3 times per day [Active]; lisinopril 10 mg oral tab 1 tab once daily [Active]; metoprolol tartrate 25 mg Oral tab 0.5 tab once daily [Active]; oxycodone 80 mg Oral TR12 1 tab three times a day [Active]; polyethylene glycol 3350 miscellaneous powd twice a day [Active]; senna 8.6 mg oral tab 2 tabs once daily [Active]; simvastatin 20 mg Oral tab 1 tab once daily [Active]; trazodone 50 mg Oral tab nightly [Active]; - PMHx: 11:00 Chronic pain; Hypertension; Myocardial infarction; neuropathy; ph - PSHx: 11:00 Knee surgery; Heart stents; BACK SURGERY x 5; AMPUTATED FINGER; Fentanyl Pain Pump; ph - Immunization history:: Adult Immunizations unknown. - Social history:: Smoking status: unknown. - Ebola Screening: : No symptoms or risks identified at this time. - Family history:: not pertinent. Screenin:01 Abuse screen: Denies threats or abuse. Denies injuries from another. Nutritional ph screening: No deficits noted. Tuberculosis screening: No symptoms or risk factors identified. Fall Risk None identified. Assessment: 11:00 General: SEE TRIAGE NOTE. bp 12:39 Reassessment: ALL CURRENT ORDERS COMPLETED, PT REMAINS HYPOTENSIVE. bp 14:00 Reassessment: TRANSFER IN PROCESS, APPROVAL PENDING. bp 15:45 Reassessment: EMS AT B/S FOR TRANSPORT. bp Vital Signs: 10:52 BP 72 / 34; Pulse 75; Resp 16; Pulse Ox 88% on R/A; ph 11:15 BP 67 / 38; Pulse 63; Resp 15; Pulse Ox 94% ; bp 11:30 BP 77 / 35; Pulse 65; Resp 16; Pulse Ox 95% on R/A; bp 12:38 BP 79 / 37; Pulse 63; Resp 20; Pulse Ox 100% ; bp 13:22 Temp 97.8; em1 13:23 BP 88 / 41; Pulse 56; Resp 18; Pulse Ox 100% on R/A; em1 14:00 BP 115 / 97; Pulse 68; Resp 18; Pulse Ox 99% ; bp 15:00 BP 104 / 53; Pulse 59; Resp 16; Pulse Ox 98% ; bp 16:07 BP 103 / 62; Pulse 58; Resp 17; Pulse Ox 98% on R/A; rv ED Course: 10:39 Patient arrived in ED. mr 10:40 Barrington Merrill MD is Private Physician. mr 10:50 Doron Banks, KISHOR is Primary Nurse. bp 10:52 Triage completed. ph 11:00 Inserted saline lock: 20 gauge in left antecubital area, using aseptic technique. Blood em1 collected. 11:01 Humberto Ruano MD is Attending Physician. stephon 11:01 Arm band placed on. ph 11:02 Patient has correct armband on for positive identification. Placed in gown. Bed in low ph position. Side rails up X2. monitor and storage bin tender on. Pulse ox on. NIBP on. Door closed. Noise minimized. Warm blanket given. Pillow given. 11:42 Type And Screen Sent. rv 12:45 XRAY Chest (1 view) In Process Unspecified. EDMS 13:06 Bladder scan completed. 281 ML. bp 13:37 Fernández cath inserted, using sterile technique, 16 Fr., by ut, balloon inflated, to rv gravity drainage, urine specimen collected. 15:45 No provider procedures requiring assistance completed. Patient transferred, IV remains bp in place. Administered Medications: 11:17 Drug: NS 0.9% 1000 ml Route: IV; Rate: 1 bolus; Site: left antecubital; rv 15:46 Follow up: IV Status: Completed infusion; IV Intake: 1000ml bp 11:33 Drug: Pepcid 20 mg Route: IVP; Site: left antecubital; bp 11:54 Follow up: Response: No adverse reaction bp 15:45 Drug: fentaNYL (PF) 25 mcg Route: IVP; Site: left antecubital; bp 15:56 Follow up: Response: Pain is decreased bp 15:45 Drug: Zofran 4 mg Route: IVP; Site: left antecubital; bp 15:56 Follow up: Response: No adverse reaction bp Intake: 15:46 IV: 1000ml; Total: 1000ml. bp Outcome: 13:55 ER care complete, transfer ordered by . stephon 15:44 Transferred by ground EMS to [facility], Transfer form completed. bp 15:44 Condition: stable 15:44 Instructed on the need for transfer. 16:08 Patient left the ED. rv Signatures: Dispatcher [employer] EDHumberto Cardona MD MD cha Rivera, Mary Ann Angel, Spencer em1 Priyanka Shoemaker, RN Doron Lozano ph RN RN Joshua Tomlin RN RN rv
--- NOTE | 2019-07-04 13:57 | EDPHYS ---
Physician Documentation [facility] Name: Mahnaz Baptiste Age: 79 yrs Sex: Male : 1940 Arrival Date: 07/04/2019 Time: 10:39 Bed 6 Private MD: Barrington Merrill S ED Physician Humberto Ruano HPI: 07/04 11:29 This 79 yrs old Male presents to ER via Wheelchair with complaints of Blood stephon Pressure Problem. 11:29 The patient presents with decreased range of motion, pain, swelling, tenderness. The stephon complaints affect the lateral aspect of left thigh, lateral aspect of left knee, lateral aspect of left calf, left hamstring, posterior aspect of left knee, left calf, medial aspect of left thigh, medial aspect of left knee, medial aspect of left calf, left quadriceps, left knee and left chavez. Context: The problem was sustained. Onset: The symptoms/episode began/occurred yesterday. Modifying factors: The symptoms are alleviated by elevating leg, the symptoms are aggravated by movement. Associated signs and symptoms: The patient has no apparent associated signs or symptoms. Severity of symptoms: At their worst the symptoms were mild moderate in the emergency department the symptoms are unchanged. Historical: - Allergies: 11:00 Morphine; ph - Home Meds: 11:00 alprazolam 1 mg Oral tab 1 tab 3 times per day for PRN [Active]; amiodarone 200 mg Oral ph tab 1 tab once daily [Active]; ProAir HFA 90 mcg/actuation inhalation HFAA 2 puffs every 6 hours [Active]; aspirin 81 mg Oral TbEC 1 tab once daily [Active]; citalopram 40 mg tab 1 tab once daily [Active]; docusate sodium 100 mg Oral tab 1 tab once daily [Active]; famotidine 20 mg Oral tab 1 tab once daily [Active]; gabapentin 600 mg oral tab 1 tab 3 times per day [Active]; lisinopril 10 mg oral tab 1 tab once daily [Active]; metoprolol tartrate 25 mg Oral tab 0.5 tab once daily [Active]; oxycodone 80 mg Oral TR12 1 tab three times a day [Active]; polyethylene glycol 3350 miscellaneous powd twice a day [Active]; senna 8.6 mg oral tab 2 tabs once daily [Active]; simvastatin 20 mg Oral tab 1 tab once daily [Active]; trazodone 50 mg Oral tab nightly [Active]; - PMHx: 11:00 Chronic pain; Hypertension; Myocardial infarction; neuropathy; ph - PSHx: 11:00 Knee surgery; Heart stents; BACK SURGERY x 5; AMPUTATED FINGER; Fentanyl Pain Pump; ph - Immunization history:: Adult Immunizations unknown. - Social history:: Smoking status: unknown. - Ebola Screening: : No symptoms or risks identified at this time. - Family history:: not pertinent. ROS: 11:29 Constitutional: Negative for fever, chills, and weight loss, Eyes: Negative for injury, stephon pain, redness, and discharge, ENT: Negative for injury, pain, and discharge, Neck: Negative for injury, pain, and swelling, Cardiovascular: Negative for chest pain, palpitations, and edema, Respiratory: Negative for shortness of breath, cough, wheezing, and pleuritic chest pain, Abdomen/GI: Negative for abdominal pain, nausea, vomiting, diarrhea, and constipation, Back: Negative for injury and pain, : Negative for injury, bleeding, discharge, and swelling, MS/Extremity: Negative for injury and deformity, Skin: Negative for injury, rash, and discoloration. 11:29 Neuro: Positive for altered mental status, weakness. Exam: 11:29 Constitutional: This is a well developed, well nourished patient who is awake, alert, stephon and in no acute distress. Head/Face: Normocephalic, atraumatic. Eyes: Pupils equal round and reactive to light, extra-ocular motions intact. Lids and lashes normal. Conjunctiva and sclera are non-icteric and not injected. Cornea within normal limits. Periorbital areas with no swelling, redness, or edema. ENT: Nares patent. No nasal discharge, no septal abnormalities noted. Tympanic membranes are normal and external auditory canals are clear. Oropharynx with no redness, swelling, or masses, exudates, or evidence of obstruction, uvula midline. Mucous membranes moist. Neck: Trachea midline, no thyromegaly or masses palpated, and no cervical lymphadenopathy. Supple, full range of motion without nuchal rigidity, or vertebral point tenderness. No Meningismus. Chest/axilla: Normal chest wall appearance and motion. Nontender with no deformity. No lesions are appreciated. Respiratory: Lungs have equal breath sounds bilaterally, clear to auscultation and percussion. No rales, rhonchi or wheezes noted. No increased work of breathing, no retractions or nasal flaring. Abdomen/GI: Soft, non-tender, with normal bowel sounds. No distension or tympany. No guarding or rebound. No evidence of tenderness throughout. Back: No spinal tenderness. No costovertebral tenderness. Full range of motion. Male : Normal genitalia with no discharge or lesions. Skin: Warm, dry with normal turgor. Normal color with no rashes, no lesions, and no evidence of cellulitis. 11:29 Cardiovascular: Rhythm: regular, Heart sounds: normal, JVD: is not appreciated. 11:29 Skin: Appearance: Color: pale, Temperature: normal temperature, Moisture: normal moisture, petechiae, not noted, ecchymosis, not noted, diaphoresis is not appreciated. Vital Signs: 10:52 BP 72 / 34; Pulse 75; Resp 16; Pulse Ox 88% on R/A; ph 11:15 BP 67 / 38; Pulse 63; Resp 15; Pulse Ox 94% ; bp 11:30 BP 77 / 35; Pulse 65; Resp 16; Pulse Ox 95% on R/A; bp 12:38 BP 79 / 37; Pulse 63; Resp 20; Pulse Ox 100% ; bp 13:22 Temp 97.8; em1 13:23 BP 88 / 41; Pulse 56; Resp 18; Pulse Ox 100% on R/A; em1 14:00 BP 115 / 97; Pulse 68; Resp 18; Pulse Ox 99% ; bp 15:00 BP 104 / 53; Pulse 59; Resp 16; Pulse Ox 98% ; bp 16:07 BP 103 / 62; Pulse 58; Resp 17; Pulse Ox 98% on R/A; rv MDM: 11:01 Patient medically screened. [facility] 11:32 Data reviewed: vital signs, nurses notes, lab test result(s), EKG, radiologic studies. [facility] 07/04 11:02 Order name: Basic Metabolic Panel [facility] 07/04 11: Order name: CBC with Diff 07/04 11:02 Order name: LFT's 07/04 11:02 Order name: Magnesium [facility] 07/04 11: Order name: NT PRO-BNP [facility] 07/04 11:02 Order name: PT-INR; Complete Time: 12:21 [facility] 07/04 11:02 Order name: Troponin (emerg Dept Use Only) [facility] 07/04 11:01 Order name: EKG; Complete Time: 11:03 07/04 11:02 Order name: XRAY Chest (1 view) [facility] 07/04 11:02 Order name: Lipase [facility] 07/04 11:02 Order name: Blood Culture Adult (2) [facility] 07/04 11:02 Order name: Urine Culture [facility] 07/04 11:28 Order name: Type And Screen; Complete Time: 13:34 [facility] 07/04 12:19 Order name: CBC Smear Scan; Complete Time: 12:21 [facility] 07/04 13:45 Order name: Urine Dipstick--Ancillary (enter results) 07/04 13:49 Order name: Urine Dipstick-Ancillary [facility] 07/04 15:23 Order name: ABO/RH no charge [facility] 07/04 11:01 Order name: Cardiac monitoring; Complete Time: 11:22 07/04 11:01 Order name: EKG - Nurse/Tech; Complete Time: 11:23 07/04 11:01 Order name: IV Saline Lock; Complete Time: 11:23 07/04 11:01 Order name: Labs collected and sent; Complete Time: 11: 07/04 11:01 Order name: O2 Per Protocol; Complete Time: 11: 07/04 11:01 Order name: O2 Sat Monitoring; Complete Time: 11: 07/04 11:02 Order name: Cardiac monitoring; Complete Time: 11:04 [facility] 07/04 11:02 Order name: EKG - Nurse/Tech; Complete Time: 11: [facility] 07/04 11:02 Order name: IV Saline Lock; Complete Time: 11: [facility] 07/04 11:02 Order name: Labs collected and sent; Complete Time: 11:25 [facility] 07/04 11:02 Order name: O2 Per Protocol; Complete Time: 11: [facility] 07/04 11:02 Order name: O2 Sat Monitoring; Complete Time: 11: [facility] 07/04 11:02 Order name: Urine Dipstick-Ancillary (obtain specimen); Complete Time: 14:31 [facility] 07/04 12:37 Order name: Fernández: bladder scan; Complete Time: 13:36 stephon Administered Medications: 11:17 Drug: NS 0.9% 1000 ml Route: IV; Rate: 1 bolus; Site: left antecubital; rv 15:46 Follow up: IV Status: Completed infusion; IV Intake: 1000ml bp 11:33 Drug: Pepcid 20 mg Route: IVP; Site: left antecubital; bp 11:54 Follow up: Response: No adverse reaction bp 15:45 Drug: fentaNYL (PF) 25 mcg Route: IVP; Site: left antecubital; bp 15:56 Follow up: Response: Pain is decreased bp 15:45 Drug: Zofran 4 mg Route: IVP; Site: left antecubital; bp 15:56 Follow up: Response: No adverse reaction bp Disposition: 07/04/19 13:55 Transfer ordered to Other Acute Care Facility. Diagnosis are Hypotension, Unspecified kidney failure, Pain in left leg - sp left leg bypass 06/24, Anemia, unspecified, Retention of urine. - Reason for transfer: Higher level of care. - Accepting physician is to [facility] ic[facility]. - Condition is Fair. - Problem is new. - Symptoms have improved. Signatures: Dispatcher [employer] EDMS Humberto Ruano MD MD cha Hall, Patricia, RN RN Doron Graff RN RN Joshua Tomlin, RN RN rv Corrections: (The following items were deleted from the chart) 11:24 11:03 Chest Single View+RAD.RAD.BRZ ordered. EDMS EDMS 13:56 11:03 BASIC METABOLIC PANEL+C.LAB.BRZ ordered. EDMS EDMS 13:56 11:03 CBC+H.LAB.BRZ ordered. EDMS EDMS 13:56 11:03 HEPATIC FUNCTION+C.LAB.BRZ ordered. EDMS EDMS 13:56 11:03 MAGNESIUM+C.LAB.BRZ ordered. EDMS EDMS 13:56 11:03 PROBNP+C.LAB.BRZ ordered. EDMS EDMS 13:56 11:03 PROTIME (+INR)+COAG.LAB.BRZ ordered. EDMS EDMS 13:56 11:03 TROPONIN (EMERG DEPT USE ONLY)+C.LAB.BRZ ordered. EDMS EDMS 13:56 13:55 07/04/2019 13:55 Transfer ordered to Other Acute Care Facility. Diagnosis is stephon Hypotension; Unspecified kidney failure; Pain in left leg - sp left leg bypass 06/24; Anemia, unspecified. Reason for transfer: Higher level of care. Accepting physician is to [facility] , icu. Condition is Fair. Problem is new. Symptoms have improved. stephon 16:08 13:56 07/04/2019 13:55 Transfer ordered to Other Acute Care Facility. Diagnosis is rv Hypotension; Unspecified kidney failure; Pain in left leg - sp left leg bypass 06/24; Anemia, unspecified; Retention of urine. Reason for transfer: Higher level of care. Accepting physician is to [facility] , icu. Condition is Fair. Problem is new. Symptoms have improved. stephon
--- NOTE | 2019-07-04 14:16 | RAD REPORT ---
EXAM DESCRIPTION: RAD - Chest Single View - 07/04/2019 12:43 pm CLINICAL HISTORY: Cough, shortness of breath COMPARISON: September 2009 TECHNIQUE: AP portable chest image was obtained 1212 hour . FINDINGS: S lung volumes are normal. No peripheral mass or consolidation. Patient has a diffusely pr ominent interstitial pattern that is increased over the far remote 2009 study. Trachea is midline. A few small granulomata noted. Heart size is normal range decreased from the comparison. Upper lobe vas culature within normal limits. No measurable pleural effusion and no pneumothorax. No acute bony abno rmality seen. No acute aortic findings suspected. IMPRESSION: No focal mass or consolidation. Diffusely prominent interstitial pattern significantly increased over remote 2009 imaging. Interstitial pattern may reflect progressive idiopathic pulmonary fibrosis. A component of interstiti al edema or infiltrate cannot be excluded.
--- NOTE | 2019-07-04 15:38 | EKG ---
Test Date: 2019-07-04 Test Time: 11:08:01 Senior Datastage Developer: CASSIA MEASUREMENT RESULTS: Intervals: Rate: 67 RI: 220 QRSD: 144 QT: 466 QTc: 492 [place]: P: 245 RI: 220 QRS: -46 T: -26 INTERPRETIVE STATEMENTS: Sinus rhythm with premature atrial complexes, first degree AV block Left axis deviation Right bundle branch block Abnormal ECG Compared to ECG 10/01/2013 10:44:45 Left-axis deviation now present Left anterior fascicular block no longer present Bifascicular block no longer present Electronically Signed On 07-04-19 15:38:28 CDT by Sheldon Goodwin
[2019-07-04] MEDS ORDERED: FENTANYL CITR 100 MCG/2 ML ONE (15:52)
[2019-07-04] MEDS ORDERED: ONDANSETRON 4 MG/2 ML VIAL ONE (15:52)
[2019-07-04 16:32] VITALS: TEMP 97.8
[2019-07-04 16:36] VITALS: O2SAT 98
[2019-07-04 16:37] VITALS: BP 103/62
== END 2019-07-04 16:08 ==
LOC: ER 10:38
DX: I95.9 Hypotension, unspecified (principal); I12.9 Hypertensive chronic kidney disease with stage 1 through stage 4 chronic kidney disease, or unspecified chronic kidney disease; N18.9 Chronic kidney disease, unspecified; D64.9 Anemia, unspecified; R33.9 Retention of urine, unspecified; M79.605 Pain in left leg; I25.2 Old myocardial infarction; Z79.82 Long term (current) use of aspirin; Z88.5 Allergy status to narcotic agent; Z95.818 Presence of other cardiac implants and grafts
CPT/HCPCS: 96361; 93005; 87040 ×2; 87088; 85025; 87086; 80048; 36415; 86900; 83735; 86850; 85610; 86901; 80076; 81003; 84484; 83690; 83880; 71045; 51702; 96375; 96374; 99291; 99292; J3010; J7030; J2405

== ENCOUNTER 2019-11-20 14:12 | Emergency (ER) | payer OTHER, BC ==
--- OUTSIDE RECORDS SUMMARY | 2019-11-20 14:14 | XMS REPORT ---
:1940 [facility] [address] [place] [place] [id number] Care Team Providers Name Role Phone Unavailable Unavailable Unavailable Problems This patient has no known problems. Allergies, Adverse Reactions, Alerts This patient has no known allergies or adverse reactions. Medications This patient has no known medications. Encounters Start End Encounter Admission Attending Care Care Encounter Date/Time Date/Time Type Type Clinicians Facility Department ID 2019-07-04 Inpatient [facility] PUL [id number] 17:33:00 2019-06-24 2019-06-23 Inpatient [facility] MED [id number] 13:43:00 15:31:00
[2019-11-20 15:08] LABS: Absolute Lymphocytes (CBC) 1.5 K/uL (0.7-4.9); Basophils % 1.1 % (0-1.3); Hematocrit 35.1 % (39.6-49.0); Lymphocytes % 25.6 % (15.3-44.8); MPV 8.1 fL (7.6-11.3); RBC Red Blood Cell Count 3.73 M/uL (4.33-5.43)
[2019-11-20 15:09] LABS: Protime INR 1.05
[2019-11-20 15:28] LABS: ALT/SGPT 17 U/L (12-78); AST/SGOT 18 U/L (15-37); Albumin 3.6 g/dL (3.4-5.0); Alkaline Phosphatase 116 U/L (45-117); BUN Blood Urea Nitrogen 23 mg/dL (7-18); Bicarbonate 29 mmol/L (21-32); Bilirubin Direct 0.2 mg/dL (0-0.2); Bilirubin Total 0.4 mg/dL (0.2-1.0); Glucose Level 195 mg/dL (74-106); Magnesium 2.1 mg/dL (1.8-2.4); NT PRO-BNP 1749 pg/mL (<450); Potassium 4.8 mmol/L (3.5-5.1); Protein, Total 7.2 g/dL (6.4-8.2); Sodium Level 138 mmol/L (136-145); Troponin (Emerg Dept Use Only) < 0.02 ng/mL (0.0-0.045)
--- NOTE | 2019-11-20 15:33 | EKG ---
Test Date: 2019-11-20 Test Time: 15:00:31 Supervisor Tank Cleaning: KARAN MEASUREMENT RESULTS: Intervals: Rate: 64 MO: QRSD: 152 QT: 462 QTc: 476 [place]: P: MO: QRS: -60 T: 27 INTERPRETIVE STATEMENTS: Sinus rhythm with first degree AV block and premature atrial complexes Left axis deviation Right bundle branch block Abnormal ECG Compared to ECG 07/04/2019 11:08:01 no significant change from previous ECG Electronically Signed On 11-20-19 15:32:36 INTERNATIONAL BANK MANAGER by Sheldon Goodwin
--- NOTE | 2019-11-20 16:10 | RAD REPORT ---
EXAM DESCRIPTION: USExtremity Venous Uni Ltd11/20/2019 3:54 pm CLINICAL HISTORY: left leg pain COMPARISON: None. FINDINGS: Left common femoral, superficial femoral, popliteal and posterior tibial veins are compre ssible and demonstrate augmentation. Doppler demonstrates good flow. IMPRESSION: No evidence of deep venous thrombosis involving the left lower extremity.
--- NOTE | 2019-11-20 16:13 | RAD REPORT ---
EXAM DESCRIPTION: US - Lower Extremity Artery Uni Ltd - 11/20/2019 3:54 pm CLINICAL HISTORY: Left leg pain COMPARISON: None FINDINGS: The patient reports having a bypass graft within the left leg. It was not visualized by te chnologist. The waveforms of the left common femoral, left superficial femoral, left popliteal, left posterior ti bial and left dorsalis pedis arteries are monophasic. Reverse flow is visualized within portions of t he left common femoral and left superficial femoral arteries. Portions of the superficial femoral artery are occluded with collaterals reconstituting the popliteal artery. Prominent plaque is scattered throughout the arteries. 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 Collaterals reconstitute the popliteal artery. The patient reports having had a bypass graft placed. However, it was not visualized by the technolog ist
--- NOTE | 2019-11-20 16:44 | ER ---
Nurse's Notes [facility] Name: Mahnaz Baptiste Age: 79 yrs Sex: Male : 1940 Arrival Date: 11/20/2019 Time: 14:14 Bed 15 Private MD: Diagnosis: Paresthesia of skin Presentation: 11/20 14:15 Presenting complaint: Patient states: "I had a leg bypass about 5 months ago and about aa5 2 hours ago I started having numbness to my left leg and I can't feel a thing so my doctor said to come here". 14:15 Acuity: ZIA 2 aa5 14:15 Transition of care: patient was not received from another setting of care. Onset of aa5 symptoms was November 20, 2019. Risk Assessment: Do you want to hurt yourself or someone else? Patient reports no desire to harm self or others. Initial Sepsis Screen: Does the patient meet any 2 criteria? No. Patient's initial sepsis screen is negative. Does the patient have a suspected source of infection? No. Patient's initial sepsis screen is negative. Care prior to arrival: None. 14:15 Method Of Arrival: Wheelchair aa5 Historical: - Allergies: 14:15 Morphine; aa5 - PMHx: 14:15 Chronic pain; Hypertension; Myocardial infarction; neuropathy; aa5 - PSHx: 14:15 Knee surgery; Heart stents; BACK SURGERY x 5; AMPUTATED FINGER; Fentanyl Pain Pump; aa5 Left leg bypass; - Immunization history:: Adult Immunizations up to date. - Ebola Screening: : No symptoms or risks identified at this time. - Social history:: Smoking status: Patient/guardian denies using tobacco. Screenin:25 Abuse screen: Denies threats or abuse. Denies injuries from another. Nutritional ca1 screening: No deficits noted. Tuberculosis screening: No symptoms or risk factors identified. Fall Risk IV access (20 points). Ambulatory Aid- Crutches/Cane/Walker (15 pts). Gait- Impaired (20 pts.). Total [place] Fall Scale indicates High Risk Score (45 or more points). Fall prevention measures have been instituted. Side Rails Up X 2 Frequent Obs/Assessments Occuring Family Present and informed to notify staff if the need to leave the bedside As available patient and family educated on Fall Prevention Program and Strategies. Assessment: 14:25 General: Appears in no apparent distress. comfortable, Behavior is calm, cooperative, ca1 appropriate for age. Pain: Complains of pain in lateral aspect of left calf, left lateral ankle and lateral aspect of left foot Quality of pain is described as numb, Pain began 3 hours ago. Is continuous. Neuro: Level of Consciousness is awake, alert, obeys commands, Oriented to person, place, time, situation, Appropriate for age. Neuro: Numbness in lateral aspect of left calf, left lateral ankle, lateral aspect of left foot, left calf, left Achilles, left heel, medial aspect of left calf, left medial ankle, medial aspect of left foot, left chavez, anterior aspect of left ankle and dorsum of left foot. Cardiovascular: Heart tones S1 S2 present Capillary refill < 3 seconds Patient's skin is warm and dry. Respiratory: Airway is patent Respiratory effort is even, unlabored, Respiratory pattern is regular, symmetrical, Breath sounds are clear bilaterally. GI: Abdomen is flat, non-distended, Bowel sounds present X 4 quads. Abd is soft and non tender X 4 quads. : No signs and/or symptoms were reported regarding the genitourinary system. EENT: No signs and/or symptoms were reported regarding the EENT system. Derm: Skin is intact, is healthy with good turgor, Skin is pink, warm \\T\\ dry. Musculoskeletal: Circulation, motion, and sensation intact. Capillary refill < 3 seconds, Range of motion: intact in all extremities. 16:29 Reassessment: Patient appears in no apparent distress at this time. Patient and/or ca1 family updated on plan of care and expected duration. Pain level reassessed. Patient is alert, oriented x 3, equal unlabored respirations, skin warm/dry/pink. Pt reported that while at US sensation of L leg came back. Vital Signs: 14:15 BP 177 / 59; Pulse 68; Resp 18 S; Temp 98.8(O); Pulse Ox 98% on R/A; aa5 16:45 BP 156 / 55; Pulse 65; Resp 17 S; Pulse Ox 99% on R/A; ca1 ED Course: 14:14 Patient arrived in ED. aa5 14:15 Arm band placed on Patient placed in an exam room, on a stretcher. aa5 14:22 Triage completed. aa5 14:25 Patient has correct armband on for positive identification. Placed in gown. Bed in low ca1 position. Call light in reach. Side rails up X2. engine monitor on. Pulse ox on. NIBP on. Warm blanket given. 14:25 No provider procedures requiring assistance completed. ca1 14:31 Hannah Suazo, KISHOR is Primary Nurse. ca1 14:58 Initial lab(s) drawn, by id, sent to lab. Inserted saline lock: 22 gauge in left ca1 antecubital area, using aseptic technique. Blood collected. 15:02 Geovanni Briones NP is PHCP. pm1 15:03 Humberto Ruano MD is Attending Physician. pm1 15:54 Extremity Venous Uni Ltd US In Process Unspecified. EDMS 15:54 Lower Extremity Artery Uni Ltd US In Process Unspecified. EDMS 16:16 Patient moved back from [facility]. aa4 16:52 IV discontinued, intact, bleeding controlled, No redness/swelling at site. Pressure ca1 dressing applied. Administered Medications: No medications were administered Outcome: 16:43 Discharge ordered by MD. pm1 16:52 Discharged to home via wheelchair, with significant other. ca1 16:52 Condition: stable 16:52 Discharge instructions given to patient, Instructed on discharge instructions, follow up and referral plans. Demonstrated understanding of instructions, follow-up care. 16:52 Patient left the ED. ca1 Signatures: Dispatcher [employer] EDMS Poppy Obrien aa4 Tootie Parks RN RN aa5 Geovanni Briones NP SUPERVISOR COLD ROLLING pm1 Hannah Suazo, KISHOR RN ca1 Corrections: (The following items were deleted from the chart) 16:51 16:29 Reassessment: Patient appears in no apparent distress at this time. Patient ca1 and/or family updated on plan of care and expected duration. Pain level reassessed. Patient is alert, oriented x 3, equal unlabored respirations, skin warm/dry/pink. ca1
--- NOTE | 2019-11-20 16:44 | EDPHYS ---
Physician Documentation [facility] Name: Mahnaz Baptiste Age: 79 yrs Sex: Male : 1940 Arrival Date: 11/20/2019 Time: 14:14 Bed 15 Private MD: ED Physician Humberto Ruano HPI: 11/20 15:59 This 79 yrs old Male presents to ER via Wheelchair with complaints of left pm1 leg numbness. 15:59 The patient presents with numbness to left ankle and foot. Context: The problem was pm1 sustained at home, resulted from an unknown cause. Onset: The symptoms/episode began/occurred 3 hour(s) ago. Modifying factors: The symptoms are alleviated by nothing. the symptoms are aggravated by nothing. Associated signs and symptoms: Pertinent positives: numbness, swelling, swelling to left lower extremity that improves with elevation, Pertinent negatives calf tenderness. Treatment prior to arrival includes: no previous treatment. Severity of symptoms: in the emergency department the symptoms have improved, has sensation to left lateral aspect of left foot. Left femoral artery bypass about 5 months ago. Patient reports numbness to left ankle and left foot about 3 hours ago. No change in temperature to left foot. Historical: - Allergies: 14:15 Morphine; aa5 - PMHx: 14:15 Chronic pain; Hypertension; Myocardial infarction; neuropathy; aa5 - PSHx: 14:15 Knee surgery; Heart stents; BACK SURGERY x 5; AMPUTATED FINGER; Fentanyl Pain Pump; aa5 Left leg bypass; - Immunization history:: Adult Immunizations up to date. - Ebola Screening: : No symptoms or risks identified at this time. - Social history:: Smoking status: Patient/guardian denies using tobacco. ROS: 15:59 Constitutional: Negative for fever, chills, and weight loss, Eyes: Negative for injury, pm1 pain, redness, and discharge, ENT: Negative for injury, pain, and discharge, Neck: Negative for injury, pain, and swelling, Cardiovascular: Negative for chest pain, palpitations, and edema, Respiratory: Negative for shortness of breath, cough, wheezing, and pleuritic chest pain, Abdomen/GI: Negative for abdominal pain, nausea, vomiting, diarrhea, and constipation, Back: Negative for injury and pain. 15:59 Skin: Negative for injury, rash, and discoloration. 15:59 MS/extremity: Positive for paresthesias, of the left foot and left ankle, Negative for injury or acute deformity, decreased range of motion, deformity. 15:59 Neuro: Positive for numbness, of the left foot and ankle, Negative for headache, weakness. Exam: 16:03 Constitutional: This is a well developed, well nourished patient who is awake, alert, pm1 and in no acute distress. Head/Face: Normocephalic, atraumatic. Neck: Trachea midline, no thyromegaly or masses palpated, and no cervical lymphadenopathy. Supple, full range of motion without nuchal rigidity, or vertebral point tenderness. No Meningismus. Chest/axilla: Normal chest wall appearance and motion. Nontender with no deformity. No lesions are appreciated. Cardiovascular: Regular rate and rhythm with a normal S1 and S2. No gallops, murmurs, or rubs. Normal PMI, no JVD. Trace swelling to left lower extremity below the knee Respiratory: Lungs have equal breath sounds bilaterally, clear to auscultation and percussion. No rales, rhonchi or wheezes noted. No increased work of breathing, no retractions or nasal flaring. Abdomen/GI: Soft, non-tender, with normal bowel sounds. No distension or tympany. No guarding or rebound. No evidence of tenderness throughout. Back: No spinal tenderness. No costovertebral tenderness. Full range of motion. Skin: Warm, dry with normal turgor. Normal color with no rashes, no lesions, and no evidence of cellulitis. 16:03 Cardiovascular: Rate: normal, Rhythm: regular, Pulses: no pulse deficits are appreciated, Pulses are 2+ in left posterior tibial artery. left foot warm and the same temperature as right foot. , Heart sounds: normal, Edema: mild edema to left lower extremity below the knee. 16:03 Neuro: Orientation: is normal, Motor: is normal, Sensation: Numbness present to medial aspect of left foot. Sensation present to lateral aspect of left foot. Vital Signs: 14:15 BP 177 / 59; Pulse 68; Resp 18 S; Temp 98.8(O); Pulse Ox 98% on R/A; aa5 16:45 BP 156 / 55; Pulse 65; Resp 17 S; Pulse Ox 99% on R/A; ca1 MDM: 15:04 Patient medically screened. pm1 16:38 Data reviewed: vital signs. Data interpreted: Pulse oximetry: on room air is 98 %. pm1 Interpretation: normal. 16:38 ED course: Patient says that he is ready to go home. Since he had ultrasounds he has pm1 sensation of his left foot. Since the diagnostic tech did not find the bypass I considered getting a CT with IV contrast but the patient does not want it since he is ready to go home. His left lower extremity with equal bilateral warmth and sensation is intact. Will discharge the patient home and educated on return precautions. 16:42 Counseling: I had a detailed discussion with the patient and/or guardian regarding: the pm1 historical points, exam findings, and any diagnostic results supporting the discharge/admit diagnosis, lab results, radiology results, the need for outpatient follow up, to return to the emergency department if symptoms worsen or persist or if there are any questions or concerns that arise at home. 11/20 14:50 Order name: Basic Metabolic Panel; Complete Time: 15:36 11/20 14:50 Order name: CBC with Diff; Complete Time: 15:20 11/20 14:50 Order name: LFT's; Complete Time: 15:36 11/20 14:50 Order name: Magnesium; Complete Time: 15:36 11/20 14:50 Order name: NT PRO-BNP; Complete Time: 15:36 11/20 14:50 Order name: PT-INR; Complete Time: 15:20 11/20 14:50 Order name: Troponin (emerg Dept Use Only); Complete Time: 15:36 11/20 14:50 Order name: EKG; Complete Time: 14:50 11/20 14:50 Order name: Cardiac monitoring; Complete Time: 14:50 11/20 14:50 Order name: EKG - Nurse/Tech; Complete Time: 15:00 11/20 14:50 Order name: IV Saline Lock; Complete Time: 15:00 11/20 14:50 Order name: Labs collected and sent; Complete Time: 15:00 11/20 15:10 Order name: Extremity Venous [employer] US; Complete Time: 16:15 pm11/20 15:10 Order name: Lower Extremity Artery [employer]; Complete Time: 16:15 pm11/20 14:50 Order name: O2 Per Protocol; Complete Time: 14:50 ca1 11/20 14:50 Order name: O2 Sat Monitoring; Complete Time: 14:50 ca1 Administered Medications: No medications were administered Disposition: 11/20/19 16:43 Discharged to Home. Impression: Paresthesia of skin. - Condition is Stable. - Discharge Instructions: Paresthesia. - Medication Reconciliation Form, Thank You Letter, Antibiotic Education, Prescription Opioid Use form. - Follow up: Emergency Department; When: As needed; Reason: Worsening of condition. Follow up: Private Physician; When: 2 - 3 days; Reason: Recheck today's complaints, Continuance of care, Re-evaluation by your physician. - Problem is new. - Symptoms are resolved. Addendum: 11/23/2019 08:20 Co-signature as Attending Physician, Humberto Ruano MD I agree with the assessment and c maria plan of care. Signatures: Dispatcher [employer] EDHumberto Cardona MD MD cha Calderon, Audri, RN RN aa5 Geovanni Briones, RESIDENT PROGRAM SPECIALIST RESIDENT PROGRAM SPECIALIST pm1 Hannah Suazo RN RN ca1 Corrections: (The following items were deleted from the chart) 11/20 16:52 16:43 11/20/2019 16:43 Discharged to Home. Impression: Paresthesia of skin. Condition ca1 is Stable. Forms are Medication Reconciliation Form, Thank You Letter, Antibiotic Education, Prescription Opioid Use. Follow up: Emergency Department; When: As needed; Reason: Worsening of condition. Follow up: Private Physician; When: 2 - 3 days; Reason: Recheck today's complaints, Continuance of care, Re-evaluation by your physician. Problem is new. Symptoms are resolved. pm1
[2019-11-20 17:44] VITALS: TEMP 98.8
[2019-11-20 17:46] VITALS: BP 156/55; O2SAT 99
== END 2019-11-20 16:52 | disposition home or self-care (01) ==
LOC: ER 14:12
DX: R20.2 Paresthesia of skin (principal); Z88.6 Allergy status to analgesic agent
CPT/HCPCS: 36415; 80048; 80076; 83735; 83880; 84484; 85025; 85610; 93005; 93926; 93971; 99285

== ENCOUNTER 2019-11-23 08:02 | Emergency (ER) | payer OTHER, BC ==
--- OUTSIDE RECORDS SUMMARY | 2019-11-23 08:04 | XMS REPORT ---
:1940 [facility] Address [address] [place] [address] Dr. [address] [place] [id number] Care Team Providers Name Role Phone Unavailable [...]
[2019-11-23 08:24] LABS: Absolute Lymphocytes (CBC) 1.1 K/uL (0.7-4.9); Basophils % 0.7 % (0-1.3); Hematocrit 39.8 % (39.6-49.0); Lymphocytes % 13.3 % (15.3-44.8); MPV 8.3 fL (7.6-11.3)
[2019-11-23] MEDS ORDERED: dexAMETHasone 10 MG/ML VIAL ONE (08:30)
[2019-11-23] MEDS ORDERED: MEPERIDINE HCL 25 MG/0.5 ML ONE (08:30)
[2019-11-23] MEDS ORDERED: LEVALBUTEROL 1.25 MG/3 ML NEB ONE (08:30)
[2019-11-23] MEDS ORDERED: ONDANSETRON 4 MG/2 ML VIAL ONE (08:30)
--- NOTE | 2019-11-23 08:38 | RAD REPORT ---
EXAM DESCRIPTION: CT - Head C Spine Mpr Wo Con - 11/23/2019 8:19 am CLINICAL HISTORY: Syncope Head and neck injury status post fall. Head and neck pain COMPARISON: 2017 MRI cervical spine TECHNIQUE: Computed axial tomography of the head and cervical spine was obtained. Sagittal and coronal reconstruction was performed. All CT scans are performed using dose optimization technique as appropriate and may include automated exposure control or mA/KV adjustment according to patient size. FINDINGS: An intracranial bleed is not seen. The ventricles are normal in caliber. An extra-axial fl uid collection is not noted.Fluid within the visualized sinuses and mastoids is not seen A cervical fracture is not visualized. No dislocation is noted. Spondylosis involves the cervical spi ne. IMPRESSION: No acute intracranial abnormality is seen. A cervical fracture is not visualized. If the patient continues to have symptoms to suggest intracra nial /spinal cord pathology then MRI would be recommended
[2019-11-23 08:43] LABS: BUN Blood Urea Nitrogen 20 mg/dL (7-18); Bicarbonate 29 mmol/L (21-32); Glucose Level 153 mg/dL (74-106); Potassium 4.3 mmol/L (3.5-5.1); Sodium Level 136 mmol/L (136-145); Troponin (Emerg Dept Use Only) < 0.02 ng/mL (0.0-0.045)
--- NOTE | 2019-11-23 09:03 | RAD REPORT ---
EXAM DESCRIPTION: Roxane Single View11/23/2019 8:31 am CLINICAL HISTORY: Shortness of breath COMPARISON: June 2019 FINDINGS: Prominence of the interstitial lung opacities unchanged The heart is normal size IMPRESSION: Mild prominence of the lung interstitial opacities. I suspect most if not all of this is chronic. There could be a mild superimposed acute pneumonitis
[2019-11-23] MEDS ORDERED: NA CHLORIDE 0.9% 500 ML ONE (09:23)
--- NOTE | 2019-11-23 10:12 | RAD REPORT ---
EXAM DESCRIPTION: MRI - Brain Wo Cont - 11/23/2019 9:54 am CLINICAL HISTORY: Syncope COMPARISON: 2018 TECHNIQUE: Axial, sagittal, and coronal magnetic images of the brain were obtained. Contrast was not requested FINDINGS: Mild to moderate signal within periventricular, deep and subcortical white matter bilatera lly Diffusion-weighted/ADC mapping does not reveal evidence of acute infarction. The ventricles are normal caliber. An extra-axial fluid collection is not present Moderate signal within the left mastoid. Fluid within the right maxillary sinus IMPRESSION: Mild to moderate signal within periventricular, deep and subcortical white matter may in dicate ischemic changes secondary to small vessel disease Signal within the left mastoids may indicate mastoiditis and should be correlated clinically Fluid within the right maxillary sinus may indicate acute sinusitis
--- NOTE | 2019-11-23 10:23 | EKG ---
Test Date: 2019-11-23 Test Time: 08:32:55 Learning Center Instructor: KARAN MEASUREMENT RESULTS: Intervals: Rate: 72 TX: 176 QRSD: 148 QT: 456 QTc: 499 [place]: P: TX: 176 QRS: -66 T: 13 INTERPRETIVE STATEMENTS: Sinus rhythm with premature supraventricular complexes Left axis deviation Right bundle branch block Abnormal ECG Compared to ECG 11/20/2019 15:00:31 First degree AV block no longer present Electronically Signed On 11-23-19 10:22:18 WELT TREATER by Sheldon Goodwin
--- NOTE | 2019-11-23 10:29 | ER ---
Nurse's Notes [facility] Name: Mahnaz Baptiste Age: 79 yrs Sex: Male : 1940 Arrival Date: 11/23/2019 Time: 08:05 Bed 4 Private MD: Diagnosis: Headache;Syncope and collapse Presentation: 11/23 08:12 Presenting complaint: pt arrives through front lobby, via wheelchair, appears to have iw passed out just SEM MANAGER, pt able to sit up in chair, awakens to tactile stimuli, assisted pt onto stretcher in ER bed 3, pt states he has had headaches and has been passing out and needed an MRI. Transition of care: patient was not received from another setting of care. Onset of symptoms was November 23, 2019. Risk Assessment: Do you want to hurt yourself or someone else? Patient reports no desire to harm self or others. Initial Sepsis Screen: Does the patient meet any 2 criteria? No. Patient's initial sepsis screen is negative. Does the patient have a suspected source of infection? No. Patient's initial sepsis screen is negative. Care prior to arrival: None. 08:12 Method Of Arrival: Ambulatory iw 08:12 Acuity: ZIA 2 iw Triage Assessment: 08:05 General: Appears in no apparent distress. uncomfortable, Behavior is cooperative. Pain: sv Complains of pain in face and scalp. Neuro: Level of Consciousness is obeys commands, lethargic, Oriented to person, place, situation, Moves all extremities. Full function Gait is steady, Speech is normal, Reports headache in entire since "a long time" reports he is waiting to get an MRI done. Respiratory: Airway is patent Respiratory effort is even, unlabored, Respiratory pattern is symmetrical, tachypnea. GI: Abdomen is round pain pump noted to the RLQ. Derm: Skin is pink, warm \\T\\ dry. Musculoskeletal: Range of motion: intact in all extremities. Historical: - Allergies: 08:23 Morphine; sv - PMHx: 08:23 Chronic pain; Hypertension; Myocardial infarction; neuropathy; sv - PSHx: 08:23 Knee surgery; Heart stents; Left leg bypass; Fentanyl Pain Pump; BACK SURGERY x 5; sv AMPUTATED FINGER; - Immunization history:: Adult Immunizations up to date. - Social history:: Smoking status: Patient uses tobacco products. - Family history:: not pertinent. - Ebola Screening: : No symptoms or risks identified at this time. - Hospitalizations: : No recent hospitalization is reported. Screenin:05 Abuse screen: Denies threats or abuse. Denies injuries from another. Nutritional sv screening: No deficits noted. Tuberculosis screening: No symptoms or risk factors identified. Fall Risk None identified. Assessment: 08:45 Reassessment: While administering medications to the pt, he stated that he was seeing a sv big white elem out in front of him. Spouse reports that his BS fluctuates a lot at home, BS checked and it was 147. After a minute pt stated that the white elem was gone. Informed Dr Mane. 09:33 Reassessment: Patient appears in no apparent distress at this time. No changes from sv previously documented assessment. Patient and/or family updated on plan of care and expected duration. Pain level reassessed. Patient is alert, oriented x 3, equal unlabored respirations, skin warm/dry/pink. 10:43 Reassessment: Patient appears in no apparent distress at this time. Patient and/or sv family updated on plan of care and expected duration. Pain level reassessed. Patient is alert, oriented x 3, equal unlabored respirations, skin warm/dry/pink. Patient states feeling better. Patient states symptoms have improved. Vital Signs: 08:07 BP 186 / 63; Pulse 81; Resp 26; Temp 98; Pulse Ox 100% ; Weight 85.28 kg; Height 5 ft. sv 8 in. (172.72 cm); 08:56 BP 156 / 56; Pulse 61; Resp 26; Pulse Ox 100% on Nebulizer Mask; sv 10:30 BP 146 / 47; Pulse 64; Resp 24; Pulse Ox 100% ; sv 08:07 Body Mass Index 28.59 (85.28 kg, 172.72 cm) sv ED Course: 08:05 Patient arrived in ED. iw 08:05 Inserted saline lock: 20 gauge in right forearm, using aseptic technique. Blood sv collected. Flushed right forearm with 5 ml normal saline. 08:05 Patient has correct armband on for positive identification. Placed in gown. Bed in low sv position. Call light in reach. Side rails up X2. Adult w/ patient. traffic monitor specialist on. Pulse ox on. NIBP on. Door closed. Warm blanket given. Head of bed elevated. 08:05 Arm band placed on. sv 08:06 Randall Mane MD is Attending Physician. rn 08:15 Triage completed. iw 08:[address] via stretcher. sv 08:19 CT Head C Spine In Process Unspecified. EDMS 08:22 Minoo Jimenez, RN is Primary Nurse. sv 08:24 Patient moved back from CT. sv 08:24 X-ray(s) taken. sv 08:31 XRAY Chest (1 view) In Process Unspecified. EDMS 08:36 EKG done, by technology advisor. reviewed by Randall Mane MD. at1 09:35 Patient moved to MRI via stretcher. sv 09:54 MRI - Brain Wo Cont In Process Unspecified. EDMS 10:28 Rupesh Centeno MD is Referral Physician. rn 10:43 No provider procedures requiring assistance completed. IV discontinued, intact, sv bleeding controlled, No redness/swelling at site. Pressure dressing applied. Administered Medications: 08:24 CANCELLED (pt has allergy): morphine 2 mg IVP once; RASS on ADMIN: Combtv4, Very sv Agttd3, Agttd2, Rstlss1, AlertClm0, Drwsy-1, Lt Sdtn-2, Mod Sdtn-3, Dp Sdtn-4, UnArsble-5 08:43 Drug: Zofran 4 mg Route: IVP; Site: right forearm; sv 09:30 Follow up: Response: No adverse reaction sv 08:45 Drug: Demerol - Meperidine 12.5 mg Route: IVP; Site: right forearm; sv 09:30 Follow up: Response: No adverse reaction; No change in condition; RASS: Alert and Calm sv (0) 08:47 Drug: Xopenex (3) 1.25 mg Route: Inhalation; sv 08:47 Drug: Decadron - Dexamethasone 10 mg Route: IVP; Site: right forearm; sv 09:30 Follow up: Response: No adverse reaction sv 10:43 Not Given (Patient Refused; Pt ready to be discharged): NS 0.9% 500 ml IV at bolus once sv Outcome: 10:28 Discharge ordered by MD. rn 10:43 Discharged to home via wheelchair, with family. sv 10:43 Condition: stable 10:43 Discharge instructions given to patient, family, Instructed on discharge instructions, follow up and referral plans. medication usage, Demonstrated understanding of instructions, follow-up care, medications, Prescriptions given X 1. 10:44 Patient left the ED. sv Signatures: Dispatcher [employer] EDMinoo Harrison, RN Chastity Boone RN RN iw Nieto, Roman, MD MD rn Gonzales, Amanda, health information tech EKG Tat1
--- NOTE | 2019-11-23 10:30 | EDPHYS ---
Physician Documentation [facility] Name: Mahnaz Baptiste Age: 79 yrs Sex: Male : 1940 Arrival Date: 11/23/2019 Time: 08:05 Bed 4 Private MD: ED Physician Randall Mane HPI: 11/23 08:30 This 79 yrs old Male presents to ER via Ambulatory with complaints of Syncope.rn 08:30 The patient has experienced syncope. Onset: The symptoms/episode began/occurred just rn prior to arrival. Duration: This was a single episode. Associated injury: The patient did not suffer any apparent associated injury. Current symptoms: headache. The patient has not experienced similar symptoms in the past. Reports brought in for wound care, passed out, did not fall or hit head, reports 5 days of headache and neck pain, no fever, seen outpt and had cspine xrays recently, has MRI scheduled tomorrow. No focal neurological complaint. Reports long time smoker and also having difficulty breathing. No chest pain/abd pain/vomiting/diarrhea. . Historical: - Allergies: 08:23 Morphine; sv - PMHx: 08:23 Chronic pain; Hypertension; Myocardial infarction; neuropathy; sv - PSHx: 08:23 Knee surgery; Heart stents; Left leg bypass; Fentanyl Pain Pump; BACK SURGERY x 5; sv AMPUTATED FINGER; - Immunization history:: Adult Immunizations up to date. - Social history:: Smoking status: Patient uses tobacco products. - Family history:: not pertinent. - Ebola Screening: : No symptoms or risks identified at this time. - Hospitalizations: : No recent hospitalization is reported. ROS: 08:30 Constitutional: Negative for fever, chills, and weight loss, Eyes: Negative for injury, rn pain, redness, and discharge, Neck: Negative for injury, pain, and swelling, Cardiovascular: Negative for chest pain, palpitations, and edema, Respiratory: Negative for shortness of breath, cough, wheezing, and pleuritic chest pain, Abdomen/GI: Negative for abdominal pain, nausea, vomiting, diarrhea, and constipation, MS/Extremity: Negative for injury and deformity, Skin: Negative for injury, rash, and discoloration, Neuro: Negative for numbness, tingling, and seizure. Exam: 08:30 Constitutional: This is a well developed, well nourished patient who is awake, alert, rn and in no acute distress. Head/Face: Normocephalic, atraumatic. ENT: MMM, no stridor, no tenderness over mastoids Neck: Trachea midline, no masses, + mild painful ROM in all directions Cardiovascular: Regular rate and rhythm. No pulse deficits. Respiratory: + mild tachypnea with faint exp wheezing, no retractions, speaking full sentences Abdomen/GI: soft, non-tender MS/ Extremity: Pulses equal, no cyanosis. Neurovascular intact. Full, normal range of motion. Equal circumference. Neuro: Awake and alert, GCS 15, oriented to person, place, time, and situation. Cranial nerves II-XII grossly intact. Motor strength 5/5 in all extremities. Sensory grossly intact. Cerebellar exam normal. Vital Signs: 08:07 BP 186 / 63; Pulse 81; Resp 26; Temp 98; Pulse Ox 100% ; Weight 85.28 kg; Height 5 ft. sv 8 in. (172.72 cm); 08:56 BP 156 / 56; Pulse 61; Resp 26; Pulse Ox 100% on Nebulizer Mask; sv 10:30 BP 146 / 47; Pulse 64; Resp 24; Pulse Ox 100% ; sv 08:07 Body Mass Index 28.59 (85.28 kg, 172.72 cm) sv MDM: 08:07 Patient medically screened. rn 10:25 Differential Diagnosis: cardiac arrhythmia, emotional response, idiopathic syncope, rn vasovagal episode, headache, stroke, migraine. Data reviewed: vital signs, nurses notes, lab test result(s), EKG, radiologic studies, CT scan, MRI, plain films, and as a result, I will discharge patient. Counseling: I had a detailed discussion with the patient and/or guardian regarding: the historical points, exam findings, and any diagnostic results supporting the discharge/admit diagnosis, lab results, radiology results, the need for outpatient follow up, to return to the emergency department if symptoms worsen or persist or if there are any questions or concerns that arise at home. 10:26 Response to treatment: the patient's symptoms have markedly improved after treatment, rn and as a result, I will discharge patient. Special discussion: I discussed with the patient/guardian in detail that at this point there is no indication for admission to the hospital. It is understood, however, that if the symptoms persist or worsen the patient needs to return immediately for re-evaluation. Based on the history and exam findings, there is no indication for further emergent testing or inpatient evaluation. I discussed with the patient/guardian the need to see the back specialist for further evaluation of the symptoms. ED course: Pt with grossly neg w/u here, improved with pain medication, neg CT head/cspine, no acute findings on MRI. No clinical signs or symptoms of mastoiditis or sinusitis. Pain seems to be at base of skull and neck and radiate up to top of head. Will dc home with muscle relaxer, and neuro and back f/u.. 11/23 08:08 Order name: Protime (+inr); Complete Time: 08:38 rn 11/23 08:08 Order name: Basic Metabolic Panel; Complete Time: 08:47 rn 11/23 08:08 Order name: CBC with Diff; Complete Time: 08:38 rn 11/23 08:08 Order name: Ptt, Activated; Complete Time: 08:38 rn 11/23 08:08 Order name: Troponin (emerg Dept Use Only); Complete Time: 08:47 rn 11/23 08:18 Order name: Glucose, Ancillary Testing; Complete Time: 08:38 EDMS 11/23 08:08 Order name: CT Head C Spine; Complete Time: 08:47 rn 11/23 08:08 Order name: XRAY Chest (1 view); Complete Time: 09:05 rn 11/23 08:57 Order name: Glucose, Ancillary Testing; Complete Time: 09:03 EDMS 11/23 09:07 Order name: MRI - Brain Wo Cont; Complete Time: 10:18 rn 11/23 08:08 Order name: EKG; Complete Time: 08:09 rn 11/23 08:08 Order name: Cardiac monitoring; Complete Time: 08:23 rn 11/23 08:08 Order name: EKG - Nurse/Tech; Complete Time: 08:23 11/23 08:08 Order name: IV Saline Lock; Complete Time: 08:11/23 08:08 Order name: Labs collected and sent; Complete Time: 08:24 rn 11/23 08:08 Order name: NPO; Complete Time: 08:24 11/23 08:08 Order name: O2 Per Protocol; Complete Time: 08:24 rn 01/13 08:08 Order name: O2 Sat Monitoring; Complete Time: 08:24 rn Administered Medications: 08:24 CANCELLED (pt has allergy): morphine 2 mg IVP once; RASS on ADMIN: Combtv4, Very sv Agttd3, Agttd2, Rstlss1, AlertClm0, Drwsy-1, Lt Sdtn-2, Mod Sdtn-3, Dp Sdtn-4, UnArsble-5 08:43 Drug: Zofran 4 mg Route: IVP; Site: right forearm; sv 09:30 Follow up: Response: No adverse reaction sv 08:45 Drug: Demerol - Meperidine 12.5 mg Route: IVP; Site: right forearm; sv 09:30 Follow up: Response: No adverse reaction; No change in condition; RASS: Alert and Calm sv (0) 08:47 Drug: Xopenex (3) 1.25 mg Route: Inhalation; sv 08:47 Drug: Decadron - Dexamethasone 10 mg Route: IVP; Site: right forearm; sv 09:30 Follow up: Response: No adverse reaction sv 10:43 Not Given (Patient Refused; Pt ready to be discharged): NS 0.9% 500 ml IV at bolus once sv Disposition: 11/23/19 10:28 Discharged to Home. Impression: Headache, Syncope and collapse. - Condition is Stable. - Discharge Instructions: General Headache Without Cause, Syncope. - Prescriptions for Cyclobenzaprine 10 mg Oral Tablet - take 1 tablet by ORAL route every 8 hours As needed; 20 tablet. - Medication Reconciliation Form, Thank You Letter, Antibiotic Education, Prescription Opioid Use form. - Follow up: Rupesh Centeno MD; When: As needed; Reason: Recheck today's complaints, Re-evaluation by your physician. - Problem is new. - Symptoms have improved. Signatures: Dispatcher [employer] EDMinoo Harrison RN RN Randall Reyes MD MD government relations manager: (The following items were deleted from the chart) 08:24 08:08 morphine 2 mg IVP once; RASS on ADMIN: Combtv4, Very Agttd3, Agttd2, Rstlss1, sv AlertClm0, Drwsy-1, Lt Sdtn-2, Mod Sdtn-3, Dp Sdtn-4, UnArsble-5 ordered. rn 10:19 08:30 Constitutional: This is a well developed, well nourished patient who is awake, rn alert, and in no acute distress. Head/Face: Normocephalic, atraumatic. ENT: MMM, no stridor Neck: Trachea midline, no masses, + mild painful ROM in all directions Cardiovascular: Regular rate and rhythm. No pulse deficits. Respiratory: + mild tachypnea with faint exp wheezing, no retractions, speaking full sentences Abdomen/GI: soft, non-tender MS/ Extremity: Pulses equal, no cyanosis. Neurovascular intact. Full, normal range of motion. Equal circumference. Neuro: Awake and alert, GCS 15, oriented to person, place, time, and situation. Cranial nerves II-XII grossly intact. Motor strength 5/5 in all extremities. Sensory grossly intact. Cerebellar exam normal. rn 10:44 10:28 11/23/2019 10:28 Discharged to Home. Impression: Headache; Syncope and collapse. sv Condition is Stable. Forms are Medication Reconciliation Form, Thank You Letter, Antibiotic Education, Prescription Opioid Use. Follow up: Rupesh Centeno; When: As needed; Reason: Recheck today's complaints, Re-evaluation by your physician. Problem is new. Symptoms have improved. rn
[2019-11-23 11:10] VITALS: TEMP 98; O2SAT 100
[2019-11-23 11:17] VITALS: BP 146/47
== END 2019-11-23 10:44 | disposition home or self-care (01) ==
LOC: ER 08:02
DX: R51 Headache (principal); I10 Essential (primary) hypertension; I25.2 Old myocardial infarction; Z72.0 Tobacco use; Z95.818 Presence of other cardiac implants and grafts; Z88.5 Allergy status to narcotic agent
CPT/HCPCS: 93005; 85025; 80048; 36415; 85610; 82947 ×2; 85730; 84484; 70450; 72125; 71045; 70551; 96375; 96374; 99285; J1100; J2175; J7040; J2405

== ENCOUNTER 2020-09-29 07:17 | Day surgery (SDC) | payer OTHER, BC ==
--- NOTE | 2020-09-27 14:58 | RAD REPORT ---
EXAM DESCRIPTION: RAD - Chest Pa And Lat (2 Views) - 09/27/2020 2:23 pm CLINICAL HISTORY: preop Chest pain. COMPARISON: Chest Single View dated 11/23/2019; Chest Single View dated 07/04/2019; CHEST PA AND LAT 2 VIEW dated 10/10/2009 TECHNIQUE: PA and lateral views of the chest were obtained. FINDINGS: The lungs are hyperexpanded compatible with COPD. The heart is upper limit of normal in si ze. No fracture or aggressive bony process. IMPRESSION: COPD without acute process identified.
[2020-09-27 15:05] LABS: Absolute Lymphocytes (CBC) 1.3 K/uL (0.7-4.9); Basophils % 0.7 % (0-1.3); Hematocrit 33.6 % (39.6-49.0); Lymphocytes % 18.5 % (15.3-44.8); MPV 9.5 fL (7.6-11.3); RBC Red Blood Cell Count 3.56 M/uL (4.33-5.43)
[2020-09-27 15:15] LABS: Protime INR 1.03
[2020-09-27 15:34] LABS: Potassium 3.7 mmol/L (3.5-5.1)
--- NOTE | 2020-09-28 07:18 | EKG ---
Test Date: 2020-09-27 Test Time: 14:24:07 Watch Crystal Molder: COURT MEASUREMENT RESULTS: Intervals: Rate: 64 NE: 128 QRSD: 152 QT: 452 QTc: 466 [place]: P: NE: 128 QRS: -48 T: 48 INTERPRETIVE STATEMENTS: Sinus rhythm with premature supraventricular complexes Left axis deviation Right bundle branch block Abnormal ECG Compared to ECG 11/23/2019 08:32:55 No significant changes Electronically Signed On 09-28-20 07:17:26 BID CLERK by Jay Packer
--- OUTSIDE RECORDS SUMMARY | 2020-09-29 07:26 | XMS REPORT | Continuity of Care Document ---
:1940 Author Organization [employer] [facility] Care Team Providers Name Role Phone [employer] Unavailable Un available Problems Problem Status Onset Classification Date Comments Sourc e Date Reported HYPOTENSION Active 07/04/20 19 [place] DEHYDRATION, RENAL Active 07/04/20 M H FAILURE, 19 [facility] HYPOTENSION PVD Active 06/22/20 19 [place] UNK Active 06/22/20 19 [facility] Nerve injury Resolved 06/22/19 Problem 07/21/2020 Mische r (disorder) 95 Neuro,[facility] Hypertensive Resolved 06/22/19 Problem 07/21/2020 Mische r disorder, systemic 88 N euro,[facility] arterial (disorder) [facility] Cervical Active Problem 07/21/2020 [place]ischer spondylosis Neuro, (disorder) [facility] 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 M ischer neuralgia (finding) Neuro,[facility] Chronic back pain Active Problem 07/21/2020 M ischer (disorder) Neuro,[facility] Chronic kidney Active Problem 07/21/2020 Misc her disease stage 3 Neur o,[facility] (disorder) [facility] Confusional state Active Problem 07/21/2020 M ischer (disorder) Neuro,[facility] Coronary Active Problem 07/21/2020 Mischer arteriosclerosis Sophia ro,MH (disorder) [facility] Diabetes mellitus Active Problem 07/21/2020 M ischer (disorder) Neuro,[facility] Essential Active Problem 07/21/2020 Mischer hypertension Neuro,M H (disorder) [facility] Gastroesophageal Active Problem 07/21/2020 Mi villa reflux disease Neuro , (disorder) [facility] Generalized anxiety Active Problem 07/21/2020 Mischer disorder (disorder) Neuro,[facility] Headache (finding) Active Problem 07/21/2020 [place] Neuro, [facility] Hyperlipidemia Active Problem 07/21/2020 Misc her (disorder) Neuro, [facility] Insomnia (disorder) Active Problem 07/21/2020 Mischer Neuro,[facility] Obstructive sleep Active Problem 07/21/2020 M ischer apnea syndrome Neuro , (disorder) [facility] Osteoarthritis Active Problem 07/21/2020 Misc her (disorder) Neuro,[facility] Peripheral nerve Active Problem 07/21/2020 Nd villa disease (disorder) N euro, [facility] Dehydration 07/08/2019 [facility] Chronic pain Resolved Problem 07/21/2020 legs and Mische r (finding) feet, back Neuro, [facility] Tremor (finding) Active Problem 07/21/2020 Nd villa Neuro HYPOTENSION, Active UNSPECIFIED [place] DEHYDRATION Active [facility] PERIPHERAL VASCULAR Active DISEASE, [facility] UNSPECIFIED Medications Medication Details Route Status Patient Ordering Order Source Instructions Provider Date DULoxetine 30 mg 30 mg = 1 cap, Active 03/16/ Mischer oral delayed PO, Daily, # 30 2020 Sophia ro release capsule cap, 6 Refill(s), Pharmacy: [facility] Acetaminophen 1 cap, PO, Q4H, Active villa 300 MG / 0 Refill(s) 2019 Neuro butalbital 50 MG / Caffeine 40 MG Oral Capsule omeprazole 40 mg 40 mg = 1 cap, Active 12/17/ Mischer oral delayed PO, Daily, 0 2020 Neuro release capsule Refill(s) terazosin 2 mg 2 mg = 1 cap, Active jaky oral capsule PO, Bedtime, 0 2020 Neur o Refill(s) Ondansetron 8 MG 8 mg = 1 tab, Active ischer Oral Tablet PO, TID, 0 2020 Neuro Refill(s) Metoclopramide 10 mg = 1 tab, Active villa 10 MG Oral PO, Daily, 0 2020 Neuro Tablet Refill(s) duloxetine 20 MG 20 mg = 1 cap, Active cher Enteric Coated PO, Daily, # 30 2020 N euro Capsule cap, 3 [Cymbalta] Refill(s), Pharmacy: [facility] citalopram 40 mg 0 Refill(s) Inactive villa oral tablet 2020 Neuro Zofran Notes: (Same as: No Longer Zofran) Active 2018 [facility] MEDICATION WASTE Product Size: 4 mg Product Wasted: ___ mg atorvastatin Notes: (Same as: No Longer Lipitor) Active 2018 [facility] Citalopram 20 mg, 2 tab, No Longer Route: PO, Drug Active 2018 [place] form: TAB, Daily, Dosing Weight 87.415, kg, Start date: 07/05/19 21:00:00 CDT, Duration: 30 day, Stop date: 08/04/19 9:00:00 CDT, 0 Acetaminophen Notes: Do not No Longer exceed 4 gm/day. Active 2018 [facility] (Same as: Tylenol) Lactulose 667 Notes: (Same No Longer MG/ML Oral as:Chronulac) Active 2018 [facility] Solution Oxycontin Notes: Do not No Longer crush or chew. Active 2018 [facility] (Same as: OxyContin) Dextrose 50% 12.5 gm, 25 mL, No Longer H Syringe Route: IVP, Drug Active 2018 [facility] Form: INJ, Dosing Weight 87.415, kg, PRN, PRN Blood Glucose Results, Start date: 07/05/19 9:30:00 CDT, Duration: 30 day, Stop date: 08/04/19 9:29:00 CDT, 0 Glucagon 1 mg, Route: IM, No Longer Drug form: Active 2018 [facility] PDR/INJ, PRN, Dosing Weight 87.415, kg, PRN Blood Glucose Results, Start date: 07/05/19 9:30:00 CDT, Duration: 30 day, Stop date: 08/04/19 9:29:00 CDT, 0 Insulin Lispro Notes: (Same as: No Longer Humalog) Roll in Active 2018 [facility] palms of hands gently; Do not shake vigorously. WASTE: F/P - Black; E - [employer] Trash Bin Stable for 28 days at room temperature. Expires in days from Da te Dopamine Notes: (Same as: No Longer Intropin) Active 2018 [facility] Administer by either central venous catheter or peripherally-ins erted central catheter (PICC) line. Final conc = 3.2 mg/ml. Premix solution. Simvastatin Notes: (Same as: Inactive Zocor) 2018 [facility] Aspirin Notes: Do not No Longer crush or chew. Active 2018 (Same As: Ecotrin) Lovenox Notes: (Same as: No Longer Lovenox) Active 2018 [facility] cefepime Notes: (Same As: No Longer Maxipime) Active 2018 [facility] [place] [facility] MEDICATION WASTE Product Size: 1000 mg Product Wasted: ___ mg Trazodone Notes: (Same As: No Longer Desyrel) Active 2018 [facility] Calcium Chloride 1,000 mL, Rate: No Longer 07/04 0.0014 MEQ/ML / 100 ml/hr, Active 2018 [facility] Potassium Infuse over: 10 Chloride 0.004 hr, Route: IV, MEQ/ML / Sodium Dosing Weight Chloride 0.103 87.415 kg, Total MEQ/ML / Sodium Volume: 1,000, Lactate 0.028 Start date: MEQ/ML 07/04/19 Injectable 18:07:00 CDT, Solution Duration: 30 day, Stop date: 08/03/19 18:06:00 CDT, 2.08, m2, 0 lactulose 10 g 10 gm = 1 ea, On Hold oral powder PO, BID, 0 2018 Refill(s) AMIODarone 200 200 mg = 1 tab, Active M H mg oral tablet PO, Daily, # 30 [place] tab, 0 Refill(s), Pharmacy: [facility] Aspirin 81 MG 81 mg = 1 tab, Active Enteric Coated PO, Daily, # 30 [place] Tablet tab, 0 Refill(s), Pharmacy: [facility] Docusate Sodium 100 mg = 1 cap, Active 100 MG Oral PO, BID, # 60 2019 [place] Capsule cap, 0 Refill(s), Pharmacy: [facility] Famotidine 20 MG 20 mg = 1 tab, Active Oral Tablet PO, BID, # 60 2019 [place] tab, 0 Refill(s), Pharmacy: [facility] metoprolol 25 mg 12.5 mg = 0.5 Active 07/02/ M H oral tablet, tab, PO, Daily, 2019 [place] extended release # 15 tab, 0 Refill(s), Pharmacy: [facility] polyethylene See Active glycol 3350 oral Instructions, 2019 [place] kit PRN Constipation, PO BID, # 30 kit, 0 Refill(s), Pharmacy: [facility] sennosides, [facility] 17.2 mg = 2 tab, Active 8.6 MG Oral PO, Bedtime, X 2019 [facility] Tablet 14 day, # 28 tab, 0 Refill(s), Pharmacy: [facility] Amiodarone Notes: (Same as: Inactive Cordarone) 2019 [facility] AMIODarone 900 2 mg/ml. Use No Longer H mg in D5W 500 ml Glass Bottle or Active 2018 [facility] IV 900 mg + Non PVC Bag Dextrose 5% in "Use 0.22 micron Water IV 482 mL in-line filter" MEDICATION WASTE Product Size: 900 mg Product Wasted: ___ mg Amiodarone 2 mg/ml. Inactive "Recommendation: 2019 [facility] Use an in-line filter during administration for continuous infusions to reduce the incidence of phlebitis" (Same as Codarone) MEDICATION WASTE Product Size: 150 mg Product Wasted: ___ mg Furosemide Notes: (Same as: No Longer Lasix) Active 2018 [facility] Miralax Notes: Dissolve No Longer in 8 oz of water Active [address] or juice. (Same as: Miralax) glycerin adult 1 supp, Route: No Longer rectal KS, Drug Form: Active 2018 [facility] suppository SUPP, Dosing Weight 83.182, kg, Daily, PRN Constipation, Start date: 06/30/19 10:03:00 CDT, Duration: 30 day, Stop date: 07/30/19 10:02:00 CDT, 0 Fleet Enema 12 years, No Longer Pediatric Active 2018 [facility] Dosing, 0 citalopram 20 mg 20 mg = 1 tab, No Longer oral tablet PO, Daily, # 30 Active 2018 [place] tab, 0 Refill(s) metoprolol Notes: (Same as: No Longer extended release Toprol XL) Do Active 2018 [place] Not Crush Lasix Notes: (Same as: Inactive Lasix) 2019 [facility] MEDICATION WASTE Product Size: 40 mg Product Wasted: ___ mg Lasix Notes: (Same as: Inactive Lasix) 2019 [facility] MEDICATION WASTE Product Size: 40 mg Product Wasted: ___ mg Insulin Lispro Notes: (Same as: No Longer Humalog) Roll in Active [address] [facility] [address] palms of hands gently; Do not shake vigorously. WASTE: F/P - Black; E - [employer] Trash Bin Stable for 28 days at room temperature. Expires in days from Da te Alprazolam Notes: With food No Longer or milk (Same Active 2018 [facility] as: Xanax) potassium Notes: (Same as: Inactive phosphate-sodium Phos-NaK) Each 2018 [facility] phosphate 1.5 gm pkt has 250mg phosphorous. Mix w/2.5oz water and stir. K-Dur 10 Notes: (Same as: Inactive K-Dur 10) "Do 2018 [facility] Not Crush" With food and full glass of water LR IV 1,000 mL 1,000 mL, Rate: No Longer 100 ml/hr, Active 2018 [facility] Infuse over: 10 hr, Route: IV, Dosing Weight 83.182 kg, Total Volume: 1,000, Start date: 06/27/19 9:52:00 CDT, Duration: 30 day, Stop date: 07/27/19 9:51:00 CDT, 2, m2, 0 Reglan Notes: (Same as: No Longer Reglan) Active 2018 [facility] Potassium Notes: (Same as: No Longer Chloride KCL) Infuse no Active [address] [facility] faster than 10 mEq/hr if given peripherally. sodium phosphate Notes: Infuse No Longer over 4 hour. Do Active 2018 [facility] [place] t not infuse phosphorous concurrently in the same line as TPN or IVF that contains calcium. For double lumen central lines, phosphorous may be infused in a separate lumen from TPN. potassium Notes: (Same as: No Longer phosphate K Phosphate.) Active 2018 [place] [facility] Do not infuse phosphorous concurrently in the same line as TPN or IVF that contains calcium. For double lumen central lines, phosphorous may be infused in a separate lumen from TPN. 1 mMol phoshate has 1.47 mEq potassium Infuse over 4 hours potassium Notes: (Same as: No Longer phosphate-sodium Phos-NaK) Each Active 2018 [facility] phosphate 250 1.5 gm pkt has mg-280 mg-160 mg 250mg oral powder for phosphorous. Mix reconstitution w/2.5oz water and stir. Magnesium Notes: WASTE: No Longer Sulfate F/P - Sink; E - Active [facility] [employer] Trash Bin Magnesium Oxide Notes: (Same as: No Longer 06/27 Mag-Ox 400) Active 2018 [facility] Magnesium oxide [id number] elemental magnesium Dose=____mg magnesium oxide (___mg elemental magnesium) Calcium Notes: WASTE: No Longer Gluconate F/P - Sink; E - Active 2018 [facility] [employer] Trash [employer] Calcium Notes: (Same As: No Longer Carbonate 500 MG Tums) Calcium Active 2018 [place] Chewable Tablet Carbonate 500 mg = 200 mg elemental calcium Dose = mg calcium carbonate ( mg elemental calcium) Hydralazine Notes: (Same as: No Longer H Apresoline) Push Active [address] [facility] [address] over 5 minutes Pepcid Notes: (Same as: No Longer Pepcid) Active 2018 [facility] Tylenol Notes: Do not No Longer exceed 4 gm/day. Active [address] [facility] [address] (Same as: Tylenol) Dexamethasone 10 mg, 2.5 mL, Inactive Route: IVP, Drug [address] form: INJ, ONCE, Dosing Weight 83.182, kg, Start date: 06/26/19 7:57:00 CDT, Stop date: 06/26/19 7:57:00 CDT, 0 Compazine Notes: (Same as: Inactive Compazine) 2019 [facility] Benadryl Notes: (Same as: Inactive Benadryl) 2019 [facility] albumin human 25 gm, Route: Inactive 25% intravenous IVPB, ONCE, 2019 [place] solution Dosing Weight 83.182, kg, Start date: 06/25/19 18:39:00 CDT, Stop date: 06/25/19 18:39:00 CDT, Indication: Non-hemorrhagic shock ePHEDrine (ANES) Route: IV, Drug Inactive form: INJ, ONCE, [address] [place] Stop date: 06/25/19 18:25:00 CDT Norepinephrine Notes: Same as: Inactive Levophed. 2019 [facility] Administer by either central venous catheter or peripherally-ins erted central catheter (PICC) line. Concentration: 0.032 mg / mL Hydralazine 10 mg, Route: Inactive IVP, Q20Min, 2018 [facility] Dosing Weight 83.182, kg, PRN Elevated BP, Start date: 06/25/19 17:57:00 CDT, Duration: 2 doses or times, Stop date: Limited # of times Labetalol 10 mg, Route: Inactive IVP, Q5Min, 2018 [facility] Dosing Weight 83.182, kg, PRN Elevated BP, Start date: 06/25/19 17:57:00 CDT, Duration: 5 doses or times, Stop date: Limited # of times Metoprolol 1 mg, Route: Inactive IVP, Q5Min, 2018 [facility] Dosing Weight 83.182, kg, PRN Other -See Comment, Start date: 06/25/19 17:57:00 CDT, Duration: 5 doses or times, Stop date: Limited # of times Acetaminophen 1,000 mg, Route: Inactive IVPB, Drug form: [address] INJ, ONCE, Dosing Weight 83.182, kg, PRN Pain Score 1-3, Start date: 06/25/19 17:57:00 CDT Oxycodone 5 mg, Route: PO, Inactive Hydrochloride 5 Drug form: TAB, 2019 [facility] [place] Oral Tablet Q4H, Dosing Weight 83.182, kg, PRN Pain Score 4-6, Start date: 06/25/19 17:57:00 CDT, Duration: 30 day, Stop date: 07/25/19 17:56:00 CDT Fentanyl 25 microgram, Inactive Route: IVP, 2019 [facility] Q5Min, Dosing Weight 83.182, kg, PRN Pain Score 4-6, Priority: Routine, Start date: 06/25/19 17:57:00 CDT, Duration: 4 doses or times, Stop date: Limited # of times Hydromorphone 0.5 mg, Route: Inactive IVP, Q5Min, 2019 [facility] Dosing Weight 83.182, kg, PRN Pain Score 7-10, Start date: 06/25/19 17:57:00 CDT, Duration: 4 doses or times, Stop date: Limited # of times Flumazenil 0.2 mg, Route: Inactive IVP, PRN, Dosing 2018 [facility] Weight 83.182, kg, PRN Benzodiazepine Reversal, Initial dose, Start date: 06/25/19 17:57:00 CDT, Duration: 30 day, Stop date: 07/25/19 17:56:00 CDT Naloxone 0.4 mg, Route: Inactive IVP, Q2MIN, 2018 [facility] Dosing Weight 83.182, kg, PRN Narcotic Reversal, Start date: 06/25/19 17:57:00 CDT, Duration: 8 doses or times, Stop date: Limited # of times Ondansetron 4 mg, Route: Inactive IVP, ONCE, 2018 [facility] Dosing Weight 83.182, kg, PRN Nausea & Vomiting, Start date: 06/25/19 17:57:00 CDT glycopyrrolate Route: IV, Drug Inactive (ANES) form: INJ, ONCE, 2018 [facility] Stop date: 06/25/19 17:18:00 CDT neostigmine Route: IV, Drug Inactive (ANES) form: INJ, ONCE, 2018 [facility] Stop date: 06/25/19 17:18:00 CDT ondansetron Route: IV, Drug Inactive (ANES) form: INJ, ONCE, 2018 [facility] Stop date: 06/25/19 17:18:00 CDT Lovenox Notes: (Same as: No Longer Lovenox) Active 2018 [facility] normal saline 1,000 mL, Rate: No Longer 0.9% IV 1,000 mL 100 ml/hr, Active [place] Infuse over: 10 hr, Route: IV, Dosing Weight 83.182 kg, Total Volume: 1,000, Start date: 06/25/19 16:47:00 CDT, Duration: 30 day, Stop date: 07/25/19 16:46:00 CDT, 2, m2, 0 protamine (ANES) Route: IV, Drug Inactive form: INJ, ONCE, 2018 [facility] Stop date: 06/25/19 16:22:00 CDT acetaminophen Route: IV, Drug Inactive M H (ANES) form: INJ, ONCE, 2018 [facility] Stop date: 06/25/19 15:04:00 CDT heparin (ANES) Route: IV, Drug Inactive form: INJ, ONCE, 2018 [facility] Stop date: 06/25/19 14:23:00 CDT albumin human Route: IV, Drug Inactive H (ANES) 25 gm form: INJ, Start 2018 [place] date: 06/25/19 13:36:00 CDT, Stop date: 06/25/19 14:36:00 CDT lidocaine (ANES) Route: IV, Drug Inactive form: INJ, ONCE, 2018 [facility] Stop date: 06/25/19 13:17:00 CDT fentaNYL (ANES) Route: IV, Drug Inactive form: INJ, ONCE, 2018 [facility] Stop date: 06/25/19 13:17:00 CDT propofol (ANES) Route: IV, Drug Inactive form: INJ, ONCE, 2018 [facility] Stop date: 06/25/19 13:17:00 CDT rocuronium Route: IV, Drug Inactive 06/25/ MH (ANES) form: INJ, ONCE, 2018 [facility] Stop date: 06/25/19 13:17:00 CDT ceFAZolin (ANES) Route: IV, Drug Inactive form: INJ, ONCE, 2018 [facility] Stop date: 06/25/19 13:17:00 CDT Sodium Chloride Route: IV, Total Inactive 0.9% IV (ANES) Volume: 1,000, 2018 [place] 1000 mL Start date: 06/25/19 12:25:00 CDT, Stop date: 06/25/19 13:25:00 CDT Calcium Chloride 1,000 mL, Rate: Inactive 0.0014 MEQ/ML / 25 ml/hr, Infuse 2018 [facility] Potassium over: 40 hr, Chloride 0.004 Route: IV, MEQ/ML / Sodium Dosing Weight Chloride 0.103 83.182 kg, Total MEQ/ML / Sodium Volume: 1,000, Lactate 0.028 Start date: MEQ/ML 06/25/19 Injectable 12:06:00 CDT, Solution Duration: 30 day, Stop date: 07/25/19 12:05:00 CDT, 2, m2 vancomycin Route: IV, Drug Inactive (ANES) 1000 mg form: INJ, Start 2018 date: 06/25/19 12:01:00 CDT, Stop date: 06/25/19 13:01:00 CDT Lactated Ringers Route: IV, Total Inactive 06/25 Injection IV Volume: 1,000, 2018 [place] (ANES) 1000 mL Start date: 06/25/19 12:01:00 CDT, Stop date: 06/25/19 13:01:00 CDT Norepinephrine Notes: Same as: No Longer Levophed. Active 2018 [facility] Administer by either central venous catheter or peripherally-ins erted central catheter (PICC) line. Concentration: 0.032 mg / mL Lovenox Notes: (Same as: No Longer Lovenox) Active 2018 [facility] Docusate Notes: (Same as: No Longer Colace) (Do Not [facility]) Aspirin Notes: Do not No Longer crush or chew. Active 2018 [facility] (Same As: Ecotrin) Citalopram 40 mg, 4 tab, No Longer Route: PO, Drug Active 2018 [place] [facility] form: TAB, Daily, Dosing Weight 83.182, kg, Start date: 06/24/19 9:00:00 CDT, Duration: 30 day, Stop date: 07/23/19 9:00:00 CDT, 0 gabapentin 600 Notes: (Same as: No Longer MG Oral Tablet Neurontin) Active 2018 [facility] Simvastatin Notes: (Same as: No Longer H Zocor) Active 2018 [facility] Alprazolam Notes: With food No Longer or milk (Same Active 2018 [facility] as: Xanax) Lisinopril Notes: (Same as: No Longer Prinivil, Active 2018 [facility] Zestril) Zofran Notes: (Same as: No Longer Zofran) 2018 [facility] MEDICATION WASTE Product Size: 4 mg Product Wasted: ___ mg sennosides, [facility] Notes: (Same as: No Longer 06/24 Senokot) Active 2018 [facility] 200 ACTUAT Notes: SEE RT No Longer Albuterol 0.09 DOCUMENTATION Active 2018 [facility] MG/ACTUAT (Same as: Metered Dose Proventil) Inhaler [ProAir HFA] oxyCODONE 10 mg Notes: Do not No Longer extended release crush or chew. Active 2018 [facility] (Same as: OxyContin) gabapentin 600 600 mg = 1 tab, Active MG Oral Tablet PO, TID, # 270 [address] [place] tab, 0 Refill(s) Dextrose 50% 12.5 gm, 25 mL, No Longer Syringe Route: IVP, Drug Active [address] [facility] [address] Form: INJ, Dosing Weight 83.182, kg, PRN, PRN Blood Glucose Results, Start date: 06/23/19 17:52:00 CDT, Duration: 30 day, Stop date: 07/23/19 17:51:00 CDT, 0 Glucagon 1 mg, Route: IM, No Longer Drug form: Active 2018 [facility] PDR/INJ, PRN, Dosing Weight 83.182, kg, PRN Blood Glucose Results, Start date: 06/23/19 17:52:00 CDT, Duration: 30 day, Stop date: 07/23/19 17:51:00 CDT, 0 Insulin Lispro Notes: (Same as: No Longer Humalog) Roll in Active 2019 [facility] palms of hands gently; Do not shake vigorously. WASTE: F/P - Black; E - Municipal Trash Bin Stable for 28 days at room temperature. Expires in days from Da te Oxycodone Notes: (Same as: No Longer Hydrochloride 5 Roxicodone) Active 2019 [place] Oral Tablet Dextrose 50% 12.5 gm, 25 mL, Inactive Syringe Route: IVP, Drug 2019 [facility] Form: INJ, Dosing Weight 83.182, kg, PRN, PRN Blood Glucose Results, Start date: 06/23/19 17:47:00 CDT, Duration: 30 day, Stop date: 07/23/19 17:46:00 CDT, 0 Glucagon 1 mg, Route: IM, Inactive Drug form: 2019 [facility] PDR/INJ, PRN, Dosing Weight 83.182, kg, PRN Blood Glucose Results, Start date: 06/23/19 17:47:00 CDT, Duration: 30 day, Stop date: 07/23/19 17:46:00 CDT, 0 Trazodone Notes: (Same As: No Longer Desyrel) Active 2019 [facility] Lovenox 40 mg, Route: Inactive SUB-Q, Drug 2018 [facility] form: INJ, Q24H, Dosing Weight 83.182, kg, Priority: Within 8 hours, Start date: 06/23/19 16:00:00 CDT, Duration: 30 day, Stop date: 07/22/19 16:00:00 CDT Hydralazine 10 mg, Route: Inactive IVP, Q20Min, 2018 [facility] Dosing Weight 83.182, kg, PRN Elevated BP, Start date: 06/23/19 15:27:00 CDT, Duration: 2 doses or times, Stop date: Limited # of times Labetalol 10 mg, Route: Inactive IVP, Q5Min, 2018 [facility] Dosing Weight 83.182, kg, PRN Elevated BP, Start date: 06/23/19 15:27:00 CDT, Duration: 5 doses or times, Stop date: Limited # of times Metoprolol 1 mg, Route: Inactive IVP, Q5Min, 2019 [facility] Dosing Weight 83.182, kg, PRN Other -See Comment, Start date: 06/23/19 15:27:00 CDT, Duration: 5 doses or times, Stop date: Limited # of times Acetaminophen 1,000 mg, Route: Inactive IVPB, Drug form: 2019 [facility] INJ, ONCE, Dosing Weight 83.182, kg, PRN Pain Score 1-3, Start date: 06/23/19 15:27:00 CDT Oxycodone 5 mg, Route: PO, Inactive Hydrochloride 5 Drug form: TAB, 2019 [facility] Oral Tablet Q4H, Dosing Weight 83.182, kg, PRN Pain Score 4-6, Start date: 06/23/19 15:27:00 CDT, Duration: 30 day, Stop date: 07/23/19 15:26:00 CDT Fentanyl 25 microgram, Inactive Route: IVP, 2018 [facility] Q5Min, Dosing Weight 83.182, kg, PRN Pain Score 4-6, Priority: Routine, Start date: 06/23/19 15:27:00 CDT, Duration: 4 doses or times, Stop date: Limited # of times Hydromorphone 0.5 mg, Route: Inactive IVP, Q5Min, 2018 [facility] Dosing Weight 83.182, kg, PRN Pain Score 7-10, Start date: 06/23/19 15:27:00 CDT, Duration: 4 doses or times, Stop date: Limited # of times Flumazenil 0.2 mg, Route: Inactive IVP, PRN, Dosing [address] [facility] [address] Weight 83.182, kg, PRN Benzodiazepine Reversal, Initial dose, Start date: 06/23/19 15:27:00 CDT, Duration: 30 day, Stop date: 07/23/19 15:26:00 CDT Naloxone 0.4 mg, Route: Inactive IVP, Q2MIN, 2018 [facility] Dosing Weight 83.182, kg, PRN Narcotic Reversal, Start date: 06/23/19 15:27:00 CDT, Duration: 8 doses or times, Stop date: Limited # of times Ondansetron 4 mg, Route: Inactive IVP, ONCE, 2018 [facility] Dosing Weight 83.182, kg, PRN Nausea & Vomiting, Start date: 06/23/19 15:27:00 CDT normal saline 1,000 mL, Rate: No Longer 0.9% IV 1,000 mL 100 ml/hr, Active [place] Infuse over: 10 hr, Route: IV, Dosing Weight 83.182 kg, Total Volume: 1,000, Start date: 06/23/19 15:22:00 CDT, Duration: 30 day, Stop date: 07/23/19 15:21:00 CDT, 2, m2, 0 fentaNYL (ANES) Route: IV, Drug Inactive form: INJ, ONCE, 2018 [facility] Stop date: 06/23/19 15:16:00 CDT lidocaine (ANES) Route: IV, Drug Inactive form: INJ, ONCE, 2018 [facility] Stop date: 06/23/19 15:13:00 CDT propofol (ANES) Route: IV, Drug Inactive form: INJ, ONCE, 2018 [facility] Stop date: 06/23/19 15:13:00 CDT vancomycin Route: IV, Drug Inactive (ANES) 1000 mg form: INJ, Start 2018 [facility] date: 06/23/19 14:35:00 CDT, Stop date: 06/23/19 15:35:00 CDT ceFAZolin (ANES) Route: IV, Drug Inactive 1000 mg form: INJ, Start 2018 [facility] date: 06/23/19 14:30:00 CDT, Stop date: 06/23/19 15:30:00 CDT Sodium Chloride Route: IV, Total Inactive 0.9% IV (ANES) Volume: 1,000, 2018 [place] 1000 mL Start date: 06/23/19 14:26:00 CDT, Stop date: 06/23/19 15:26:00 CDT Ancef + sterile Notes: (Same As: Inactive water 20 mL Ancef, Kefzol) 2018 [facility] MEDICATION WASTE Product Size: 1000 mg Product Wasted: ___ mg Vancomycin 2001 mg: infuse Inactive over 2.5 hours 2018 [facility] For adult patients only: Round to nearest 250 mg per Medical Staff approval MEDICATION WASTE Product Size: 1000 mg Product Wasted: ___ mg Acetylcysteine Notes: SEND Inactive H 200 MG/ML TO PRE-OP 2019 [facility] Inhalant SEND TO Solution PRE-OP SEND TO PRE-OP NS 1,000 mL 1,000 mL, Rate: Inactive 150 ml/hr, 2018 [facility] Infuse over: 6.7 hr, Route: IV, Dosing Weight 84.545 kg, Total Volume: 1,000, Start date: 06/23/19 10:01:00 CDT, Duration: 30 day, Stop date: 07/23/19 10:00:00 CDT, 2.06, m2, 0 oxcarbazepine 150 mg = 1 tab, Active villa 150 MG Oral PO, Bedtime, # 2018 [facility] Tablet 30 tab, 3 [Trileptal] Refill(s), Pharmacy: [facility] gabapentin 600 600 mg = 1 tab, Active ischer MG Oral Tablet PO, Daily, 0 2018 [facility] o Refill(s) Citalopram 40 mg, PO, Active Daily, 0 2017 [facility] Refill(s) 200 ACTUAT 2 puff, Active Albuterol 0.09 INHALATION, Q6H, 2018 [facility] MG/ACTUAT 0 Refill(s) Metered Dose Inhaler [ProAir HFA] Lactulose 667 10 gm = 15 mL, Active jaky MG/ML Oral PO, BID, 0 2017 [facility] Solution Refill(s) Omeprazole 40 mg, PO, Active cher Daily, 0 2018 [facility] Refill(s) Diclofenac PO, 0 Refill(s) Active ch er 2018 [facility] Docusate Sodium 100 mg = 1 cap, Active cher 100 MG Oral PO, Daily, 0 2018 [facility] Capsule Refill(s) Metoclopramide 10 mg, PO, BID, Active ischer 0 Refill(s) 2017 [facility] Alprazolam 1 mg, PO, TID, Active che r PRN anxity, 0 2017 [facility] Refill(s) Aspirin 81 mg, PO, Active Daily, 0 2017 [facility] Refill(s) POLYETHYLENE 17 gm, PO, Active GLYCOL 3350 142 Daily, # 255 gm, 2018 [facility] MG/ML Oral 0 Refill(s) Solution [Miralax] Trazodone 50 mg, PO, Active Bedtime, 0 2017 [facility] Refill(s) oxyCODONE 80 mg 80 mg = 1 tab, Active ischer oral tablet, PO, TID, PRN 2018 [facility] extended release pain, 0 Refill(s) ProAir HFA 1 - 2 puffs, Active INHALATION, Q6H, 2018 [facility] PRN Wheezing / cough / shortness of breath, # 1 ea, 0 Refill(s) Diclofenac See Active Sodium 0.01 Instructions, 2 2017 Neur o MG/MG Topical mg-4mgTOP QID Gel affected area, 0 Refill(s) Lisinopril 10 mg, PO, Active Daily, 0 2017 [facility] Refill(s) Simvastatin 20 mg, PO, Active Daily, 0 2017 [facility] Refill(s) 3 ML Insulin 600 mg, 0 Active Lispro 100 Refill(s) 2017 [facility] UNT/ML Pen Injector [Humalog] Ondansetron 8 mg, PO, Q8H, Active er PRN nausea, 0 2017 [facility] Refill(s) Reglan 10 mg, PO, BID, No Longer che r 0 Refill(s) Active 2017 [facility] Allergies, Adverse Reactions, Alerts Substance Category Reaction Severity Reaction Status Date Comments S ource type Reported morphine Assertion Drug Active Misch er allergy Neuro Dilaudid Assertion Drug Active Misch er allergy Neuro iodine Assertion Drug Active Mische r allergy Neuro Immunizations No Data Provided for This Section Results Order Name Results Value Reference Date Interpretation Comments Gracia rce Range CHEM PANEL Magnesium 2.1 1.8 - 2.4 07/06 Lv [facility] CHEM PANEL Phosphorus 3.5 2.5 - 4.5 07/06 [facility] CHEM PANEL Glucose Lvl 152 70 - 99 07/06 [facility] CHEM PANEL BUN 29 7 - 22 07/06 [facility] CHEM PANEL Creatinine 1.12 0.50 - 07/06 Lvl 1.40 /2018 [facility] CHEM PANEL Sodium Lvl 144 135 - 145 07/06 [facility] CHEM PANEL Potassium 3.9 3.5 - 5.1 07/06 Lv [facility] CHEM PANEL Chloride Lvl 109 95 - 109 07/06 [facility] CHEM PANEL CO2 32 24 - 32 07/06 [facility] CHEM PANEL Calcium Lvl 7.6 8.5 - 10.5 07/06 [facility] CHEM PANEL AGAP 6.9 10.0 - 07/06 20.0 [facility] CHEM PANEL eGFR 63 07/06 Result Comment: The [facility] eGFR is calculated using the CKD-EPI formula. In most young, healthy individuals the eGFR will be >90 mL/min/1.73m2 . The eGFR declines with age. An eGFR of 60-89 may be normal in some populations, particularly the elderly, for whom the CKD-EPI formula has not been extensively validated. Use of the eGFR is not recommended in the following populations:< br/>
Aga viduals with unstable creatinine concentration s, including patients and those with serious co-morbid conditions.<b r/>
Patie nts with extremes in muscle mass or diet.

The data above are obtained from the National Kidney Disease Education Program (NKDEP) which additionally recommends that when the eGFR is used in patients with extremes of body mass index for purposes of drug dosing, the eGFR should be multiplied by the estimated BMI. CHEM PANEL Calcium Lvl 7.6 8.5 - 10.5 07/06 [facility] HEMATOLOGY WBC 7.2 3.7 - 10.4 07/06 [facility] HEMATOLOGY RBC 2.93 4.70 - 07/06 MH 6.10 [facility] HEMATOLOGY Hgb 9.4 14.0 - 07/06 18.0 [facility] HEMATOLOGY Hct 28.1 42.0 - 07/06 54.0 /2018 [facility] HEMATOLOGY MCV 96.1 80.0 - 07/06 MH 94.0 /2018 [facility] HEMATOLOGY MCH 32.1 27.0 - 07/06 31.0 [facility] HEMATOLOGY MCHC 33.4 32.0 - 07/06 36.0 [facility] HEMATOLOGY RDW 16.1 11.5 - 07/06 14.5 [facility] HEMATOLOGY Platelet 282 133 - 450 07/06 [facility] HEMATOLOGY MPV 7.9 7.4 - 10.4 07/06 [facility] STIMULATIO Albert 180 Min 10.8 07/06 N STUDIES /2018 [facility] BLOOD BANK ABO/Rh O POS 07/05 RESULTS /2018 [facility] BLOOD BANK Antibody Negative 07/05 RESULTS Scrn (07/05/19 11:00 AM) [facility] BLOOD [facility] RBC product Product available 4 07/05 Resul t RESULTS (07/05/19 9:30 AM) Comment: [facility] 07/05/2019 12:33 [id number]
KLS notified Mandy 07/05/2019 12:33 CHEM PANEL Calcium Lvl 7.6 8.5 - 10.5 07/05 [facility] CHEM PANEL Glucose Lvl 170 70 - 99 07/05 [facility] CHEM PANEL BUN 45 7 - 22 07/05 [facility] CHEM PANEL Creatinine 1.69 0.50 - 07/05 Lvl 1.40 [facility] CHEM PANEL Sodium Lvl 143 135 - 145 07/05 [facility] CHEM PANEL Potassium 3.7 3.5 - 5.1 07/05 Lvl [facility] CHEM PANEL Chloride Lvl 106 95 - 109 07/05 [facility] CHEM PANEL CO2 32 24 - 32 07/05 [facility] CHEM PANEL Calcium Lvl 7.6 8.5 - 10.5 07/05 [facility] CHEM PANEL AGAP 8.7 10.0 - 07/05 20.0 [facility] CHEM PANEL eGFR 38 07/05 Result Comment: The [facility] eGFR is calculated using the CKD-EPI formula. In most young, healthy individuals the eGFR will be >90 mL/min/1.73m2 . The eGFR declines with age. An eGFR of 60-89 may be normal in some populations, particularly the elderly, for whom the CKD-EPI formula has not been extensively validated. Use of the eGFR is not recommended in the following populations:< br/>
Aga viduals with unstable creatinine concentration s, including patients and those with serious co-morbid conditions.<b r/>
Patie nts with extremes in muscle mass or diet.

The data above are obtained from the National Kidney Disease Education Program (NKDEP) which additionally recommends that when the eGFR is used in patients with extremes of body mass index for purposes of drug dosing, the eGFR should be multiplied by the estimated BMI. CHEM PANEL Magnesium 2.0 1.8 - 2.4 07/05 MH Lvl [facility] CHEM PANEL Phosphorus 3.7 2.5 - 4.5 07/05 [facility] HEMATOLOGY WBC 8.6 3.7 - 10.4 07/05 [facility] HEMATOLOGY RBC 2.48 4.70 - 07/05 MH 6.10 [facility] HEMATOLOGY Hgb 8.0 14.0 - 07/05 MH 18.0 [facility] HEMATOLOGY Hct 24.1 42.0 - 07/05 MH 54.0 [facility] HEMATOLOGY MCV 97.1 80.0 - 07/05 MH 94.0 [facility] HEMATOLOGY MCH 32.2 27.0 - 07/05 MH 31.0 [facility] HEMATOLOGY MCHC 33.2 32.0 - 07/05 MH 36.0 [facility] HEMATOLOGY RDW 16.5 11.5 - 07/05 MH 14.5 [facility] HEMATOLOGY Platelet 253 133 - 450 07/05 [facility] HEMATOLOGY MPV 8.5 7.4 - 10.4 07/05 [facility] CARDIAC Troponin-I 0.07 0.00 - 07/05 ENZYMES 0.40 /2018 [facility] CARDIAC Total CK 815 12 - 191 07/05 MH ENZYMES /2018 [facility] CHEM PANEL Magnesium 1.9 1.8 - 2.4 07/05 MH Lvl [facility] CHEM PANEL Phosphorus 3.4 2.5 - 4.5 07/05 [facility] ELECTROLYT AGAP 9.8 10.0 - 07/05 MH ES 20.0 [facility] ELECTROLYT B/C Ratio 24 6 - 25 / MH ES [facility] ELECTROLYT Globulin 2.3 2.7 - 4.2 07/05 MH ES [facility] ELECTROLYT A/G Ratio 1.2 0.7 - 1.6 07/05 [facility] ELECTROLYT Glucose Lvl 187 70 - 99 07/05 [facility] ELECTROLYT BUN 46 7 - 22 07/05 [facility] ELECT[facility] Creatinine 1.90 0.50 - 07/05 ES Lvl 1.40 /2018 [facility] ELECTROLYT Sodium Lvl 140 135 - 145 07/05 [facility] ELECT[facility]OLYT Potassium 3.8 3.5 - 5.1 07/05 ES Lvl [facility]LECT[facility] Chloride Lvl 102 95 - 109 07/05 [facility] ELECTROLYT CO2 32 24 - 32 07/05 [facility] ELECTROLYT Total 5.1 6.4 - 8.4 07/05 Protein [facility] ELECTROLYT Albumin Lvl 2.8 3.5 - 5.0 07/05 [facility] ELECTROLYT ALT 21 0 - 65 07/05 [facility] AST 23 0 - 37 07/05 [facility]LECT[facility] Alk Phos 121 39 - 136 07/05 [facility]LECT[facility] Bili Total 1.6 0.2 - 1.3 07/05 [facility] ELECTROLYT eGFR 33 07/05 Comment: The [facility] eGFR is calculated using the CKD-EPI formula. In most young, healthy individuals the eGFR will be >90 mL/min/1.73m2 . The eGFR declines with age. An eGFR of 60-89 may be normal in some populations, particularly the elderly, for whom the CKD-EPI formula has not been extensively validated. Use of the eGFR is not recommended in the following populations:< br/>
Aga viduals with unstable creatinine concentration s, including patients and those with serious co-morbid conditions.<b r/>
Patie nts with extremes in muscle mass or diet.

The data above are obtained from the National Kidney Disease Education Program (NKDEP) which additionally recommends that when the eGFR is used in patients with extremes of body mass index for purposes of drug dosing, the eGFR should be multiplied by the estimated BMI. HEMATOLOGY INR 1.16 0.85 - 07/05 MH 1.17 [facility] HEMATOLOGY PT 14.6 12.0 - 07/05 MH 14.7 [facility] HEMATOLOGY PTT 33.0 22.9 - 07/05 MH 35.8 /2018 [facility] HEMATOLOGY WBC 11.0 3.7 - 10.4 07/05 /2018 [facility] HEMATOLOGY RBC 2.89 4.70 - 07/05 MH 6.10 /2018 [facility] HEMATOLOGY Hgb 9.3 14.0 - 07/05 MH 18.0 /2018 [facility] HEMATOLOGY Hct 27.9 42.0 - 07/05 MH 54.0 /2018 [facility] HEMATOLOGY MCV 96.6 80.0 - 07/05 MH 94.0 /2018 [facility] HEMATOLOGY MCH 32.2 27.0 - 07/05 MH 31.0 /2018 [facility] HEMATOLOGY MCHC 33.3 32.0 - 07/05 MH 36.0 /2018 [facility] HEMATOLOGY RDW 16.9 11.5 - 07/05 MH 14.5 /2018 [facility] HEMATOLOGY Platelet 277 133 - 450 07/05 /2018 [facility] HEMATOLOGY MPV 8.4 7.4 - 10.4 07/05 /2018 [facility] HEMATOLOGY Segs 66.6 45.0 - 07/05 MH 75.0 /2018 [facility] HEMATOLOGY Lymphocytes 12.6 20.0 - 07/05 MH 40.0 /2018 [facility] HEMATOLOGY Monocytes 17.8 2.0 - 12.0 07/05 [facility] HEMATOLOGY Eosinophils 2.4 0.0 - 4.0 07/05 [facility] HEMATOLOGY Basophils 0.6 0.0 - 1.0 07/05 [facility] HEMATOLOGY Neutrophils 7.4 1.5 - 8.1 07/05 MH # /2018 [facility] HEMATOLOGY Lymphocytes 1.4 1.0 - 5.5 07/05 # /2018 [facility] HEMATOLOGY Monocytes # 2.0 0.0 - 0.8 07/05 [facility] HEMATOLOGY Eosinophils 0.3 0.0 - 0.5 07/05 # /2018 [facility] HEMATOLOGY Basophils # 0.1 0.0 - 0.2 07/05 [facility] URINE CHEM U Sodium 26 07/04 [facility] URINE CHEM U Creatinine 113.00 07/04 [facility] Culture: No Growth 07/04 Urine /2018 [facility] CHEM PANEL Glucose Lvl 199 70 - 99 07/02 [facility] CHEM PANEL BUN 24 7 - 22 07/02 [facility] CHEM PANEL Creatinine 1.31 0.50 - 07/02 Lvl 1.40 /2018 [facility] CHEM PANEL Sodium Lvl 142 135 - 145 07/02 [facility] CHEM PANEL Potassium 4.1 3.5 - 5.1 07/02 [facility] CHEM PANEL Chloride Lvl 105 95 - 109 07/02 [facility] CHEM PANEL CO2 31 24 - 32 07/02 [facility] CHEM PANEL AGAP 10.1 10.0 - 07/02 MH 20.0 [facility] CHEM PANEL Calcium Lvl 8.2 8.5 - 10.5 07/02 [facility] CHEM PANEL eGFR 52 07/02 Result Comment: The [facility] eGFR is calculated using the CKD-EPI formula. In most young, healthy individuals the eGFR will be >90 mL/min/1.73m2 . The eGFR declines with age. An eGFR of 60-89 may be normal in some populations, particularly the elderly, for whom the CKD-EPI formula has not been extensively validated. Use of the eGFR is not recommended in the following populations:< br/>
Aga viduals with unstable creatinine concentration s, including patients and those with serious co-morbid conditions.<b r/>
Patie nts with extremes in muscle mass or diet.

The data above are obtained from the National Kidney Disease Education Program (NKDEP) which additionally recommends that when the eGFR is used in patients with extremes of body mass index for purposes of drug dosing, the eGFR should be multiplied by the estimated BMI. CHEM PANEL Glucose Lvl 92 70 - 99 07/01 [facility] CHEM PANEL BUN 21 7 - 22 07/01 [facility] CHEM PANEL Creatinine 1.45 0.50 - 07/01 Lvl 1.40 [facility] CHEM PANEL Sodium Lvl 141 135 - 145 07/01 [facility] CHEM PANEL Potassium 3.6 3.5 - 5.1 07/01 [facility] CHEM PANEL Chloride Lvl 104 95 - 109 07/01 [facility] CHEM PANEL CO2 30 24 - 32 07/01 [facility] CHEM PANEL Calcium Lvl 8.1 8.5 - 10.5 07/01 [facility] CHEM PANEL AGAP 10.6 10.0 - 07/01 MH 20. [facility] CHEM PANEL eGFR 46 07/01 Result Comment: The [facility] eGFR is calculated using the CKD-EPI formula. In most young, healthy individuals the eGFR will be >90 mL/min/1.73m2 . The eGFR declines with age. An eGFR of 60-89 may be normal in some populations, particularly the elderly, for whom the CKD-EPI formula has not been extensively validated. Use of the eGFR is not recommended in the following populations:< br/>
Aga viduals with unstable creatinine concentration s, including patients and those with serious co-morbid conditions.<b r/>
Patie nts with extremes in muscle mass or diet.

The data above are obtained from the National Kidney Disease Education Program (NKDEP) which additionally recommends that when the eGFR is used in patients with extremes of body mass index for purposes of drug dosing, the eGFR should be multiplied by the estimated BMI. CARDIAC BNP 784 <=100 06/30 MH ENZYMES pg/mL /2018 [facility] CHEM PANEL Glucose Lvl 158 70 - 99 06/30 [facility] CHEM PANEL BUN 16 7 - 22 06/30 [facility] CHEM PANEL Creatinine 1.12 0.50 - 06/30 MH Lvl 1.40 /2018 [facility] CHEM PANEL Sodium Lvl 140 135 - 145 06/30 [facility] CHEM PANEL Potassium 3.9 3.5 - 5.1 06/30 MH Lvl [facility] CHEM PANEL Chloride Lvl 104 95 - 109 06/30 [facility] CHEM PANEL CO2 31 24 - 32 06/30 [facility] CHEM PANEL Calcium Lvl 8.1 8.5 - 10.5 06/30 [facility] CHEM PANEL Total 5.0 6.4 - 8.4 06/30 MH Protein [facility] CHEM PANEL Albumin Lvl 2.6 3.5 - 5.0 06/30 [facility] CHEM PANEL ALT 29 0 - 65 06/30 [facility] CHEM PANEL AST 11 0 - 37 06/30 [facility] CHEM PANEL Alk Phos 92 39 - 136 06/30 [facility] CHEM PANEL Bili Total 1.7 0.2 - 1.3 06/30 [facility] CHEM PANEL AGAP 8.9 10.0 - 06/30 MH 20.0 [facility] CHEM PANEL B/C Ratio 14 6 - 25 06/30 [facility] CHEM PANEL Globulin 2.4 2.7 - 4.2 06/30 [facility] CHEM PANEL A/G Ratio 1.1 0.7 - 1.6 06/30 [facility] CHEM PANEL eGFR 63 06/30 Result Comment: The [facility] eGFR is calculated using the CKD-EPI formula. In most young, healthy individuals the eGFR will be >90 mL/min/1.73m2 . The eGFR declines with age. An eGFR of 60-89 may be normal in some populations, particularly the elderly, for whom the CKD-EPI formula has not been extensively validated. Use of the eGFR is not recommended in the following populations:< br/>
Aga viduals with unstable creatinine concentration s, including patients and those with serious co-morbid conditions.<b r/>
Patie nts with extremes in muscle mass or diet.

The data above are obtained from the National Kidney Disease Education Program (NKDEP) which additionally recommends that when the eGFR is used in patients with extremes of body mass index for purposes of drug dosing, the eGFR should be multiplied by the estimated BMI. HEMATOLOGY WBC 9.0 3.7 - 10.4 06/30 [facility] HEMATOLOGY RBC 2.65 4.70 - 06/30 MH 6. [facility] HEMATOLOGY Hgb 8.5 14.0 - 06/30 MH 18. [facility] HEMATOLOGY Hct 24.6 42.0 - 06/30 MH 54.0 [facility] HEMATOLOGY MCV 92.6 80.0 - 06/30 MH 94.0 [facility] HEMATOLOGY MCH 32.2 27.0 - 06/30 MH 31.0 [facility] HEMATOLOGY MCHC 34.7 32.0 - 06/30 MH 36.0 [facility] HEMATOLOGY RDW 14.8 11.5 - 06/30 MH 14.5 [facility] HEMATOLOGY Platelet 165 133 - 450 06/30 [facility] HEMATOLOGY MPV 8.5 7.4 - 10.4 06/30 [facility] HEMATOLOGY WBC 9.6 3.7 - 10.4 06/29 [facility] HEMATOLOGY RBC 3.10 4.70 - 06/29 MH 6. [facility] HEMATOLOGY Hgb 10.0 14.0 - 06/29 MH 18.0 [facility] HEMATOLOGY Hct 29.0 42.0 - 06/29 MH 54.0 [facility] HEMATOLOGY MCV 93.5 80.0 - 06/29 MH 94.0 /2018 [facility] HEMATOLOGY MCH 32.1 27.0 - 06/29 MH 31.0 /2018 [facility] HEMATOLOGY MCHC 34.4 32.0 - 08 MH 36.0 /2018 [facility] HEMATOLOGY RDW 14.9 11.5 - 08 MH 14.5 /2018 [facility] HEMATOLOGY Platelet 136 133 - 450 08 /2018 [facility] HEMATOLOGY MPV 8.6 7.4 - 10.4 08 /2018 [facility] HEMATOLOGY Segs 67.8 45.0 - 06/29 MH 75.0 /2018 [facility] HEMATOLOGY Lymphocytes 14.0 20.0 - 06/29 MH 40.0 /2018 [facility] HEMATOLOGY Monocytes 15.7 2.0 - 12.0 06/29 [facility] HEMATOLOGY Eosinophils 2.2 0.0 - 4.0 06/29 [facility] HEMATOLOGY Basophils 0.3 0.0 - 1.0 06/29 /2018 [facility] HEMATOLOGY Neutrophils 6.5 1.5 - 8.1 06/29 MH # /2018 [facility] HEMATOLOGY Lymphocytes 1.3 1.0 - 5.5 06/29 MH # /2018 [facility] HEMATOLOGY Monocytes # 1.5 0.0 - 0.8 06/29 [facility] HEMATOLOGY Eosinophils 0.2 0.0 - 0.5 06/29 MH # /2018 [facility] CHEM PANEL Phosphorus 2.4 2.5 - 4.5 06/29 [facility] CHEM PANEL Magnesium 1.5 1.8 - 2.4 06/29 Lvl /2018 [facility] HEMATOLOGY Segs 61.5 45.0 - 06/29 MH 75.0 /2018 [facility] HEMATOLOGY Lymphocytes 18.4 20.0 - 06/29 MH 40.0 [facility] HEMATOLOGY Monocytes 17.5 2.0 - 12.0 06/29 [facility] HEMATOLOGY Eosinophils 2.2 0.0 - 4.0 06/29 [facility] HEMATOLOGY Basophils 0.4 0.0 - 1.0 06/29 [facility] HEMATOLOGY Neutrophils 5.5 1.5 - 8.1 06/29 MH # /2018 [facility] HEMATOLOGY Lymphocytes 1.7 1.0 - 5.5 06/29 # /2018 [facility] HEMATOLOGY Monocytes # 1.6 0.0 - 0.8 06/29 [facility] HEMATOLOGY Eosinophils 0.2 0.0 - 0.5 06/29 MH # /2018 [facility] HEMATOLOGY WBC 9.0 3.7 - 10.4 06/29 /2018 [facility] HEMATOLOGY RBC 2.54 4.70 - 06/29 MH 6.10 [facility] HEMATOLOGY Hgb 8.2 14.0 - 06/29 MH 18.0 [facility] HEMATOLOGY Hct 23.3 42.0 - 06/29 MH 54.0 /2018 [facility] HEMATOLOGY MCV 91.6 80.0 - 06/29 MH 94.0 [facility] HEMATOLOGY MCH 32.1 27.0 - 06/29 MH 31.0 [facility] HEMATOLOGY MCHC 35.1 32.0 - 06/29 MH 36.0 [facility] HEMATOLOGY RDW 14.9 11.5 - 06/29 MH 14.5 [facility] HEMATOLOGY Platelet 118 133 - 450 06/29 [facility] HEMATOLOGY MPV 8.0 7.4 - 10.4 06/29 /2018 [facility] BLOOD BANK RBC product Product available 06/28 RESULTS (06/28/19 3:52 PM) /2018 [facility] BLOOD BANK RBC product Product available 4 06/28 Resul t RESULTS (06/28/19 3:11 PM) Comment: [facility] 06/28/2019 15:39 [id number]
Called to JASON GONZALEZ_ at _06/28/2019 15:37 by [facility]_. BLOOD BANK ABO/Rh O POS 06/28 RESULTS /2018 [facility] BLOOD BANK Antibody Negative 06/28 RESULTS Scrn (06/28/19 8:27 AM) [facility] BLOOD BANK RBC product Product available 5 06/28 Resul t RESULTS (06/28/19 8:05 AM) Comment: [facility] 06/28/2019 09:49 [id number]
KLS notified Gema 06/28/2019 09:49 CHEM PANEL Magnesium 2.0 1.8 - 2.4 06/28 Lvl /2018 [facility] CHEM PANEL Phosphorus 2.6 2.5 - 4.5 06/28 [facility] HEMATOLOGY Segs 70.8 45.0 - 06/28 MH 75.0 [facility] HEMATOLOGY Lymphocytes 13.5 20.0 - 06/28 MH 40.0 [facility] HEMATOLOGY Monocytes 15.1 2.0 - 12.0 06/28 [facility] HEMATOLOGY Eosinophils 0.5 0.0 - 4.0 06/28 /2018 [facility] HEMATOLOGY Basophils 0.1 0.0 - 1.0 08 MH /2018 [facility] HEMATOLOGY Neutrophils 9.3 1.5 - 8.1 06/28 MH # /2019 [facility] HEMATOLOGY Lymphocytes 1.8 1.0 - 5.5 06/28 MH # /2019 [facility] HEMATOLOGY Monocytes # 2.0 0.0 - 0.8 06/28 MH /2018 [facility] HEMATOLOGY Eosinophils 0.1 0.0 - 0.5 06/28 MH # /2018 [facility] CHEM PANEL Magnesium 2.2 1.8 - 2.4 06/27 Lvl /2018 [facility] CHEM PANEL Phosphorus 3.3 2.5 - 4.5 06/27 /2018 [facility] CARDIAC Troponin-I 0.03 0.00 - 06/25 ENZYMES 0.40 [facility] PARATHYROI Ca Ion WB 1.08 1.05 - 06/24 D PROFILE 1. [facility] PARATHYROI Ca Norm WB 1.10 1.05 - 06/24 D PROFILE . [facility] BLOOD BANK ABO/Rh O POS 06/23 RESULTS /2018 [facility] BLOOD BANK Antibody Negative 06/23 RESULTS Scrn (06/23/19 11:13 AM) /2018 [facility] HEMATOLOGY INR 1.17 0.85 - 06/23 1.17 /2018 [facility] HEMATOLOGY PT 14.7 12.0 - 06/23 14.7 [facility] HEMATOLOGY PTT 30.8 22.9 - 06/[address] [facility] Basophils # 0.1 0.0 - 0.2 06/23 [facility] Pathology Reports No Data Provided for This Section Diagnostic Reports Report Value Date Source Chest 1view DX Patient Name: NATE POWER 06/30/2019 [facility] : 1940; Age: 79 years y/o Male MR: [id number] Study: Chest 1view DX 06/30/2019 11:00 CDT Ordering Physician: Federico Chu MD Clinical Indication: - hypoxia; Comparison: 06/25/2019 1 view chest Development of mild reticula r interstitial opacities throughout both lungs. Differential considerations include pulmonary edema or pneumonitis. Heart size and mediastinal contours stable. Right jugular central line terminates at the SVC . There is no pleural effusion or pneumothorax. IMPRESSION: Development of d iffuse interstitial, reticular opacities within both lungs. Correlate clinically for pneumonitis or edema. SL: [id number] Chest 1 v for Patient Name: NATE POWER 06/25/2019 [facility] Placement DX : 1940; Age: 79 years y/o Male MR: [id number] Study: Chest 1 v for Placement DX dated 06/25/20 19. Clinical Indication: Line Placement - Chest 1 vi ew for line placement; Comparison: 06/23/2019 Interval placement of right internal jugular catheter with tip in expected region of the SVC. Cardiac and mediastinal structures are stable including aortic calcification. Increased reticular opacity th roughout the lungs similar t o prior study may represent component of edema or nonspecific interstitial pneumonitis. No pneumothorax. Degenerative changes are seen about the thoracic spine and visualized upper lumbar spine. Methacr ylate noted within a compressed upper lumbar vertebral body. Increased lung volumes suggest emphysematous changes. SL: CSODERSTROM-PC Tibia fibula series Clinical Indication: - INCORRECT COUNT 06/11 [facility] Comparison: None FINDINGS: AP and lateral views of the left tibia and fibula demonstrate no fracture. There are degenerative changes in the left knee. The soft tissues demonstrate scattered areas of subcutaneous gas consistent with recent surgery. Multiple vascular clips are noted throughout the surgical beds. There are no other visible radiopaque foreign bodies noted. If there is further concern , recommend follow-up radiographs or bone scan for complete assessment. IMPRESSION: 1. Imaging findings consiste nt with vascular surgery. There are no visible radiopaque foreign bodies noted aside from vascular clips and skin ismael. 2. Degenerative changes in the left knee. 3. Otherwise negative left tibia and fibula Findings were called to the nurse in the OR at t he time of dictation. SL: CLARA Femur series DX Clinical Indication: - INCORRECT COUNT; 019 [facility] Comparison: Tibia and fibula radiographs perform ed concurrently. Findings: 2 views of the left femur ar e submitted for interpretation. No evidence of a fracture or dislocation. 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 No abnormal radiopaque forei gn body. Surgical ismael ar e noted. There is soft tissue edema. Atherosclerotic vascular disease. Partially visualized Fernández catheter noted. IMPRESSION: No abnormal radiopaque foreign body. Findings discussed with El Campbell by Dr. Jeff at the time of dictation. SL: HELEN Ext Lower Venous Please refer to heart lab re port, located under Vascular in [facility]. 06/23/2019 [facility] Doppler Bilat US Chest 1view DX Portable chest: The aortic a rch is calcified. The cardiomediastinal silhouette, pulmonary vasculature and penny are otherwise within normal limits. There are mild nonspecific increased interstitial suzanne 06/23/2019 [facility] ngs in the lungs. The lungs and pleural spaces are otherwise clear. There are no significant osseous abnormalities. IMPRESSION: No acute radiographic abnormalities in the chest . [id number] Consultation Notes No Data Provided for This Section Discharge Summaries No Data Provided for This Section History and Physicals No Data Provided for This Section Vital Signs Vital Sign Value Date Comments Source Systolic (mm Hg) 172 03/16/2020 [facility] Diastolic (mm Hg) 56 03/16/2020 [facility] Heart Rate 68 03/16/2020 [facility] Respitory Rate 16 03/16/2020 [facility] Neuro Temperature Oral (F) 98.2 F 03/16/2020 [facility] Height 177.8 cm 03/16/2020 [facility] Weight 83.636 03/16/2020 [facility] Neuro BMI Calculated 26.46 03/16/2020 [facility] Systolic (mm Hg) 149 12/17/2019 [facility] Diastolic (mm Hg) 65 12/17/2019 [facility] Heart Rate 75 12/17/2019 [facility] Respitory Rate 16 12/17/2019 [facility] Height 170.18 cm 12/17/2019 [facility] Weight 85 12/17/2019 [facility] BMI Calculated 29.35 12/17/2019 [facility] Systolic (mm Hg) 132 11/13/2019 [facility] Diastolic (mm Hg) 46 11/13/2019 [facility] Heart Rate 71 11/13/2019 [facility] Respitory Rate 16 11/13/2019 [facility] Height 170.18 cm 11/13/2019 [facility] Weight 85.455 11/13/2019 [facility] BMI Calculated 29.51 11/13/2019 [facility] Respitory Rate 22 07/06/2019 [facility] Systolic (mm Hg) 128 07/06/2019 [facility] Diastolic (mm Hg) 41 07/06/[address] Respitory Rate 23 07/06/2019 [facility] Systolic (mm Hg) 132 07/06/2019 [facility] Diastolic (mm Hg) 49 07/06/[address] Respitory Rate 17 07/06/2019 [facility] Systolic (mm Hg) 130 07/06/2019 [facility] Diastolic (mm Hg) 43 07/06/[address] Temperature Oral (F) 98.4 F 07/06/2019 [facility] Temperature Oral (F) 98.6 F 07/06/2019 [facility] Temperature Oral (F) 98.1 F 07/06/2019 [facility] Height 175.26 cm 07/04/2019 [facility] Weight 87.415 07/04/2019 [facility] BMI Calculated 28.46 07/04/2019 [facility] Respitory Rate 20 07/02/2019 [facility] Systolic (mm Hg) 110 07/02/2019 [facility] Diastolic (mm Hg) 58 07/02/[address] [facility] Respitory Rate 18 07/02/2019 [facility] Systolic (mm Hg) 114 07/02/2019 [facility] Diastolic (mm Hg) 37 07/02/[facility] Respitory Rate 10 07/02/2019 [facility] Systolic (mm Hg) 115 07/02/2019 [facility] Diastolic (mm Hg) 41 07/02/[address] [facility] Temperature Oral (F) 98.6 F 07/02/2019 [facility] Temperature Oral (F) 98.7 F 07/02/2019 [facility] Height 170.18 cm 07/02/2019 [facility] Temperature Oral (F) 99.2 F 07/02/2019 [facility] Height 170.18 cm 07/01/2019 [facility] Height 170.18 cm 07/01/2019 [facility] Heart Rate 54 06/25/2019 [facility] Heart Rate 50 06/25/2019 [facility] Heart Rate 56 06/25/2019 [facility] Weight 83.182 06/23/2019 [facility] BMI Calculated 28.72 06/23/2019 [facility] BMI Calculated 26.74 10/23/2018 [facility] Height 177.8 cm 10/23/2018 [facility] Weight 84.545 10/23/2018 [facility] Systolic (mm Hg) 159 10/23/2018 [facility] Diastolic (mm Hg) 65 10/23/2018 [facility] Heart Rate 70 10/23/2018 [facility] Neuro BMI Calculated 27.46 10/09/2018 [facility] Neuro Weight 86.818 10/09/2018 [facility] Neuro Height 177.8 cm 10/09/2018 [facility] Neuro Respitory Rate 16 10/09/2018 [facility] Neuro Heart Rate 74 10/09/2018 [facility] Neuro Systolic (mm Hg) 177 10/09/2018 [facility] Sophia ro Diastolic (mm Hg) 79 10/09/2018 [facility] Ne uro BMI Calculated 26.74 09/11/2018 [facility] Neuro Weight 84.545 09/11/2018 [facility] Neuro Heart Rate 76 09/11/2018 [facility] Neuro Height 177.8 cm 09/11/2018 [facility] Neuro Systolic (mm Hg) 135 09/11/2018 [facility] Diastolic (mm Hg) 54 09/11/2018 [facility] Ne uro Encounters Location Location Encounter Encounter Reason Attending ADM MA Stat us Source Details Type Number For Provider Date Date Visit Outpatient [id number] AYAZ 09/11 Active [facility] [place] [facility] Outpatient [id number] Ayaz 09/11 09/12 [facility] Neurology [facility] [place] Outpatient [id number] AYAZ 09/16 Active [facility] [place] [facility] Outpatient [id number] Ayaz 09/16 09/17 [facility] Neurology [facility] [place] MNA Outside [id number] 09/25 09/27 [facility] Neurology [facility] [place] Records MNA Phone [id number] 09/26 09/28 [facility] [place] Outpatient [id number] AYAZ 10/09 Active [facility] [place] MNA Outpatient [id number] Ayaz 10/09 10/10 [facility] Neurology [facility] [place] Outpatient [id number] AYAZ 10/23 Active [facility] [place] [facility] Outpatient [id number] Ayaz 10/23 10/24 [facility] Neurology [facility] [place] MNA Outside [id number] 10/30 11/01 [facility] Neurology Medical [facility] [place] Records Outpatient [id number] AYAZ 11/20 Active [facility] [place] MNA Ambulatory [id number] Ayaz 11/20 11/20 [facility] Pre[facility]Reg [place] /2018 [facility] [place] Outpatient [id number] AYAZ 02/04 Active [facility] KRELL [place] Outpatient [id number] AYAZ 02/26 Active [facility] KRELL [place] MNA Ambulatory [id number] Ayaz 02/26 02/26 [facility] [place] [facility] [place] [facility] [id number] Gyanendra 06/24 07/02 [facility] Marisa /2018 [facility] Inpatient [id number] Timoteo 07/04 07/06 [facility] Hotze /2018 [facility] Outpatient [id number] Ayaz 11/13 Active [facility] [place] /2020 [place] [facility] Outpatient [id number] Ayaz 11/13 11/14 [facility] Neurology [place]rell /2019 /2019 [facility] [place] Outpatient [id number] Ayaz 12/17 Active [facility] Kre /2020 [place] MNA Outpatient [id number] Ayaz 12/17 12/18 [facility] Neurology Krell /2020 /2020 [facility] [place] Outpatient [id number] Ayaz 03/16 Active [facility] Krell /2020 [place] MNA Outpatient [id number] A Merrill 03/16 03/17 [facility] Neurology /2020 /2020 [facility] [place] Outpatient [id number] Ayaz 07/19 Active [facility] [place]rell /2020 [place] Outpatient [id number] Ayaz 07/19 Active [facility] Krell /2020 [place] MNA Ambulatory [id number] A Merrill 07/19 07/19 [facility] Neurology Pre-Reg /2020 2020 [facility] [place] [facility]NA Ambulatory [id number] A Merrill 07/19 07/19 [facility] Neurology Pre-Reg /2020 /2020 [facility] [place] Procedures Procedure Code Date Perfomer Comments Source Kyphoplasty of [id number] 06/22/2013 [facility] fracture of lumbar Neuro, spine using [facility] computed tomography (CT) guidance Bypass / graft of [id number] 06/22/2008 [facility] vein [facility] Arthroplasty of [id number] 06/22/1995 right [facility] knee<sup>1</sup> [facility] [place] Discectomy [id number] 06/22/1986 [facility] Neuro,[facility] Amputation of [id number] 06/22/1973 [facility] finger of left [facility], hand [facility] Arthroscopy of [id number] 06/22/1964 also in 1983 [facility] knee Neuro, joint<sup>2</sup> [facility] Appendectomy [id number] [facility] Neuro,[facility] Assessment and Plan Assessment and Plan Date Source Extracted from:Title: Cardiology Progress Note 07/06/2019 [facility] Author: Chris Davis MD Date: 07/06/19 Impression and Plan Hypotension Bradycardia Atrial fibrillation, postop Mild aortic stenosis PAD status post left fem-tib bypass in 06/25/2019 TRINA CAD status post PCI greater than 30 years Hyperlipidemia Type 2 diabetes Obstructive sleep apnea Acute on chronic anemia Overweight # Hypotension - Multifactorial. Agree with prbc trans fusion given recent surgery and need for prbc - Hold BP meds. Agree with IVF given TRINA - On IV dopamine also for bradycardia - though I do not believe his bradycardia is the main culprit for his hypotension - Check AM cortisol # Bradycardia / Afib - Noted to have new post op afib during his recent admission - Avoid any av anthony blocking agent now - Possible SSS vs med induced from MTP. Continue IV dopamin e - Check TSH # PAD s/p L fem-tib bypass - On ASA. Switch simva to atorva at mod/high intensity dose # CAD s/p remote h/o PCI - On ASA and statin - 07/06: hypotension and bradycardia have improved, cont to hold anti-HTN meds at this time Thank you. Cardiology will follow. Extracted from:Title: Cardiology Consultation Author: Suman Garcia MD Date: 07/05/19 Impression and Plan Hypotension Bradycardia Atrial fibrillation, postop Mild aortic stenosis PAD status post left fem-tib bypass in 06/25/2019 TRINA CAD status post PCI greater than 30 years Hyperlipidemia Type 2 diabetes Obstructive sleep apnea Acute on chronic anemia Overweight # Hypotension - Multifactorial. Agree with prbc trans fusion given recent surgery and need for prbc - Hold BP meds. Agree with IVF given TRINA - On IV dopamine also for bradycardia - though I do not believe his bradycardia is the main culprit for his hypotension - Check AM cortisol # Bradycardia / Afib - Noted to have new post op afib during his recent admission - Avoid any av anthony blocking agent now - Possible SSS vs med induced from MTP. Continue IV dopamin e - Check TSH # PAD s/p L fem-tib bypass - On ASA. Switch simva to atorva at mod/high intensity dose # CAD s/p remote h/o PCI - On ASA and statin > 31 mins of critical care time spent in the management of this patient as well as reviewing pertinent laboratory and radiographic data Extracted from:Title: ICU history and physical Author: Timoteo Parisi MD Date: 07/04/19 Pulmonary and Critical Care Consult Note Timoteo Parisi MD Reason for consult: Hypotension Bradycardia HPI: Patient is 79-year-old male wi th past medical history significant for PVD with recent fem-tib bypass for critical limb ischemia on the left on 06/25/2019, patient's clinical course was com plicated by hypotension and acute anemia . These resolved during the course of his hospital stay. He has a past medical history significant for hypertension, CKD, diabetes, atrial fibrillation, GERD, O SA. Patient presented to an outside ED today with increasing weakness and lethargy and was found to have acute renal failure as well as hypotension with systolic blood pressures in the 60s70s. Given his recent surgical history at our hospital he was transferred here to ICU for further management. On arrival the patient has low normal blood pressures with systolics in the 90s and a map greate r than 65. No laboratory values were se nt with his transfer paperwork. Labs are pending. The patient is currently in no distress though he has some pain in his left lower extremity. Doppler pulses are present in the left lower extremity. Review of systems: 14 point review of systems negative except as per HPI Allergies Allergies (1) Active Reaction morphine None documented Procedure History Kyphoplasty of fracture of lumbar spine using computed tomography (CT) guidance: 06/22/13 Bypass / graft of vein: 06/22/08 Arthroplasty of knee: 06/22/95 Discectomy: 06/22/86 Amputation of finger of left hand: 06/22/73 Arthroscopy of knee joint: 06/22/64 Appendectomy Past Medical History Nerve damage Diabetes Hypertension Chronic pain Family History Father: Heart disease Mother: Heart disease Social history Tobacco Details: Use: Current every day smoker. Type: Cigarettes. 10 per day. Tobacco smoke exposure: smoker. Did the Patient Smoke Cigarettes Anytime During the Last 365 Days? Yes. Cessation Counseling Provided? No.; Comment(s): 1 PK a day for 40yrs Home Meds Home Medications (10) Active ALPRAZOLam 1 mg, PO, TID citalopram 20 mg, PO, Daily gabapentin 600 mg oral tablet 600 mg = 1 tab, PO, Daily lactulose 10 g oral powder 10 gm = 1 ea, PO, BID lisinopril 10 mg, PO, Daily metoprolol 25 mg oral tablet, extended release 12.5 mg = 0.5 tab, PO, Daily oxyCODONE 80 mg oral tablet, extended release 80 mg = 1 tab, PO, TID ProAir HFA 1 - 2 puffs, PRN, INHALATION, Q6H simvastatin 20 mg, PO, Daily trazodone 50 mg, PO, Bedtime Scheduled Meds: None Continuous Infusions (1): 07/04/19 Lactated Ringers Injection IV 1000 mL 1,000 mL 100 ml/hr No qualifying data available All imaging reviewed. Objective: I&O Record In Out Bal 24hr Tot 0 0 0 24hr Tot 0 0 0 CCL error: %KGW-T-427-SMT_EDOC_COMMON(0, 0,56)[id number] on array out of bound at (size:1,occur:10). CCL error: %UDG-F-019-SMT_EDOC_COMMON(0, 0,56)[id number]:[id number] on array out of bound at (size:1,occur:5). CCL error: %RHB-T-963-SMT_EDOC_COMMON(0, 0,56)[id number]:[id number] on array out of bound at (size:1,occur:5). CCL error: %JKO-D-648-SMT_EDOC_COMMON(0, 0,56)[id number]:[id number] on array out of bound at (size:1,occur:7). CCL error: %KZW-U-556-SMT_EDOC_COMMON(0, 0,56)[id number] on array out of bound at (size:1,occur:2). Lines, Tubes, and Drains: 07/04/2019 18:19 Peripheral Lines: Antec ubital Left 20 gauge Over the needle catheter 07/04/2019 17:34 SpO2 percent 99 Vital Signs (last 24 hrs) Last Charted Temp Oral 98.0 DegF (JUL 04:34) Heart Rate Apical 65 bpm (JUL 04:) Resp Rate H 23BRMIN (JUL 04:34) SBP 109 mmHg (JUL 04:34) DBP 81 mmHg (JUL 04:34) Weight 87.415 kg (JUL 04:35) Height 175.26 cm (JUL 04:35) BMI 28.46 (JUL 04:35) Exam: General: Ill-appearing, frail, elderly HEENT: no pallor, anicteric sclera Cardiovascular: regular, no murmur Respiratory: CTA Abdomen: soft, non-tender, +BS Extremities: Left lower extremity pittin g edema, scrotum with ecchymoses, no cyanosis, surgical site clean dry and intact Neurologic: Awake, Nonfocal Skin: no breakdown Problems: Hypotension Severe sepsis TRINA/CKD PVD with nonhealing LE wound s/p fem-tib bypass on 06/25/2019 h/o HTN DM GERD Atrial fibrillation Diabetes CARMEN Plan: Hypotension, responding to IV fluids, l actic acid within normal limits, suspicion for sepsis, initiated on empiric antibiotics, blood cultures and urine cultures sent Bradycardia, will consult cardiology, m onitor closely in ICU, history of atrial fibrillation, hold rate control drugs TRINA/CKD, continue IV fluids as above, m onitor I's and O's, replace electrolytes as per protocol Lower extremity PVD, left-sided fem-tib bypass on 06/25, comp gated by hemorrhage that time, mild elevation in creatine kinase vascular surgery consulted Anemia, monitor closely, transfuse to hemoglobin greater th an 8 given PVD, Severe pain, continue home oxycodone Prophylaxis: DVT: Heparin GI: Not indicated Nutrition: Regular diet Code Status: Full code Disposition: ICU I spent greater than 30 minutes in [facility] wing the clinical case, examining the patient, and discussing with the patient/patient's family, and with other consultants, the clinical course, treatment plan, and prognosis. Timoteo Parisi MD Pulmonary and Critical Care Extracted from:Title: Cardiology Progress Note 07/02/2019 [facility] Author: Chris Davis MD Date: 07/02/19 Impression and Plan Cardiac preop eval Diastolic CHF Afib CAD s/p PCI (remote) DM II HTN HLD PAD Acute on chronic anemia # Cardiac preop eval / PAD - Now s/p L fem-tib bypass on 06-25 - Noted worsen anemia this AM with Hgb 5.7 s/p prbc - Hb responded appropriately # CAD with hx of PCI - He can cont with asa and statin therapies - Hold BB and ACEi given low BP at this time # HTN - Stable off meds. See above # HLD - On statin # Afib, perioperative - Cont with low dose metop and amio - Hold off on AC at this time given acute anemia - Cont with low dose asa # Diastolic CHF - Will start lasix 20 mg IV daily, first dose now - Cr wnl - Cont with lasix 20 mg PO - Echo with normal LV fnx Thank you. F/u with cardiology in 2 weeks. Extracted from:Title: Critical Care Author: Vinay Rivera DO Date: 06/25/19 Critical Care Medicine Chief complaint: PVD History of present illness: 79 y.o male with a h/o PVD, HTN, DM, CKD , and tobacco use seen in PACU s/p L fem-tib bypass. He has been extubated and is hypotensive on levophed. His EBL was 1500cc. PRBCs have been ordered. He has dop plered pulses bilaterally. The patient has a nonhealing lowe r extremity wound. Past medical history: as above Past family history: Father: Heart disease Mother: Heart disease Surgical history: Kyphoplasty of fracture of lumbar spine using computed tomography (CT) guidance: 06/22/13 Bypass / graft of vein: 06/22/08 Arthroplasty of knee: 06/22/95 Discectomy: 06/22/86 Amputation of finger of left hand: 06/22/73 Arthroscopy of knee joint: 06/22/64 Appendectomy Social history: Tobacco Details: Use: Current every day smoker. Tobacco smoke exposure: Unable to obtain. Did the Patient Smoke Cigarettes Anytime During the Last 365 Days? Yes. Cessation Counseling Provided? No.; Comment(s): 1 PK a day for 40yrs Medications: Medication List Active Medications Ordered acetaminophen: 1,000 mg, IVPB, ONCE, PRN: Pain Sc ore 1-3. albuterol: 2.49 mg, 3 mL, NEB, RQ6H. ALPRAZOLam: 1 mg, 1 tab, PO, TID. aspirin: 81 mg, 1 tab, PO, Daily. citalopram: 40 mg, 4 tab, PO, Daily. Dextrose 50% in Water IV: 12.5 gm, 25 mL, IVP, KS N, PRN: Blood Glucose Results. Dextrose 50% in Water IV: 25 gm, 50 mL, IVP , PRN, PRN: Blood Glucose Results. docusate: 100 mg, 1 cap, PO, BID. enoxaparin: 40 mg, 0.4 mL, SUB-Q, [id number]. fentaNYL: 25 microgram, IVP, Q5Min, PRN: Pain Sco re 4-6. flumazenil: 0.2 mg, IVP, PRN, PRN: Benzodiazepine Reversal. gabapentin: 600 mg, 2 cap, PO, BID. glucagon: 1 mg, IM, PRN, PRN: Blood Glucose Resul ts. hydrALAZINE: 10 mg, IVP, Q20Min, PRN: Elevated BP . hydromorphone: 0.5 mg, IVP, Q5Min, PRN: Pain Scor e 7-10. insulin lispro: 1 unit, 0.01 mL, SUB-Q, TID -Before Meals, PRN: Blood Glucose Results. insulin lispro: 2 unit, 0.02 mL, SUB-Q, TID -Before Meals, PRN: Blood Glucose Results. insulin lispro: 3 unit, 0.03 mL, SUB-Q, TID -Before Meals, PRN: Blood Glucose Results. insulin lispro: 4 unit, 0.04 mL, SUB-Q, TID -Before Meals, PRN: Blood Glucose Results. insulin lispro: 5 unit, 0.05 mL, SUB-Q, TID -Before Meals, PRN: Blood Glucose Results. insulin lispro: 1 unit, 0.01 mL, SUB-Q, Bedtime, PRN: Blood Glucose Results. insulin lispro: 2 unit, 0.02 mL, SUB-Q, Bedtime, PRN: Blood Glucose Results. insulin lispro: 3 unit, 0.03 mL, SUB-Q, Bedtime, PRN: Blood Glucose Results. insulin lispro: 4 unit, 0.04 mL, SUB-Q, Bedtime, PRN: Blood Glucose Results. labetalol: 10 mg, IVP, Q5Min, PRN: Elevated BP. metoprolol: 1 mg, IVP, Q5Min, PRN: Other -See Com ment. naloxone: 0.4 mg, IVP, Q2MIN, PRN: Narcotic Rever isabell. norepinephrine 8 mg: Titrate, IV, Stop: 07/25/19 9:12:00 CDT. norepinephrine 8 mg: Titrate, IV, Stop: 07/25/19 18:13:00 CDT. ondansetron: 4 mg, 2 mL, IV, Q4H, PRN: as needed for nausea/vomiting. ondansetron: 4 mg, IVP, ONCE, PRN: Nausea and Vom iting. oxyCODONE: 5 mg, 1 tab, PO, Q6H, PRN: Pain Score 4-6. oxyCODONE: 80 mg, 2 tab, PO, TID, PRN: Pain Score 7-10. oxyCODONE: 5 mg, PO, Q4H, PRN: Pain Score 4-6. senna: 17.2 mg, 2 tab, PO, Bedtime. simvastatin: 20 mg, 1 tab, PO, Daily. Sodium Chloride 0.9% IV 1,000 mL: 100 ml/hr, IV, Stop: 07/25/19 16:46:00 CDT. trazodone: 50 mg, 1 tab, PO, Bedtime, PRN: Insomn ia. Suspended albuterol: 1 - 2 puffs, INHALATION, Q6H, fo r 25 day, PRN: Wheezing / cough / shortness of breath, 1 ea, 0 Refill(s). ALPRAZOLam: 1 mg, PO, TID, PRN anxity, 0 Refill(s ). citalopram: 40 mg, PO, Daily, 0 Refill(s). gabapentin: 600 mg, 1 tab, PO, TID, 270 tab, 0 Re fill(s). lisinopril: 10 mg, 2 tab, PO, Daily. lisinopril: 10 mg, PO, Daily, 0 Refill(s). oxyCODONE: 80 mg, 1 tab, PO, TID, PRN pain, 0 Ref ill(s). simvastatin: 20 mg, PO, Daily, 0 Refill(s). trazodone: 50 mg, PO, Bedtime, 0 Refill(s). Medications Inactivated in the Last 72 Hours acetaminophen: 1,000 mg, IVPB, ONCE, PRN: Pain Score 1-3. acetaminophen: IV, ONCE. acetylcysteine: 900 mg, 4.5 mL, PO, PRE OP. albumin human: 25 gm, 100 mL, PYXIS, ONCE. albumin human: 25 gm, 100 mL, PYXIS, ONCE. albumin human: 25 gm, IVPB, ONCE. albumin human 25 gm: IV, Stop: 06/25/19 14:36:00 CDT. albuterol: 2 puff, INHALATION, Q6H, 0 Refill(s). aspirin: 81 mg, PO, Daily, 0 Refill(s). bacitracin: 50,000 unit, PYXIS, ONCE. bacitracin: 50,000 unit, PYXIS, ONCE. bupivacaine: 150 mg, 30 mL, PYXIS, ONCE. ceFAZolin: 2 gm, PYXIS, ONCE. ceFAZolin: 2 gm, PYXIS, ONCE. ceFAZolin: IV, ONCE. ceFAZolin 1000 mg: IV, Stop: 06/23/19 15:30:00 CDT. ceFAZolin + sterile water 20 mL: 2 gm, 200 ml/hr, IVP B, PRE OP. Dextrose 50% in Water IV: 12.5 gm, 25 mL, IVP, PRN, P RN: Blood Glucose Results. Dextrose 50% in Water IV: 25 gm, 50 mL, IVP, PRN, PRN : Blood Glucose Results. Dextrose 5% in Lactated Ringers IV: 1,000 mL, PYXIS, ONCE. Dextrose 5% in Water IV: 1,000 mL, PYXIS, ONCE. diclofenac: PO, 0 Refill(s). diclofenac topical: See Instructions, 2 mg-4mgTOP QID affected area, 0 Refill(s). docusate: 100 mg, 1 cap, PO, Daily, 0 Refill(s). enoxaparin: 40 mg, SUB-Q, [id number]. enoxaparin: 40 mg, SUB-Q, Q24H. enoxaparin: 40 mg, 0.4 mL, SUB-Q, [id number]. ePHEDrine: 25 mg, 5 mL, PYXIS, ONCE. ePHEDrine: IV, ONCE. EPINEPHrine: 2 mg, 20 mL, PYXIS, ONCE. fentaNYL: 100 microgram, 2 mL, PYXIS, ONCE. fentaNYL: IV, ONCE. fentaNYL: IV, ONCE. fentaNYL: 25 microgram, IVP, Q5Min, PRN: Pain Score 4 -6. fentaNYL: 100 microgram, 2 mL, PYXIS, ONCE. fentaNYL: 100 microgram, 2 mL, PYXIS, ONCE. fentaNYL: IV, ONCE. flumazenil: 0.2 mg, IVP, PRN, PRN: Benzodiazepine Rev ersal. gabapentin: 600 mg, 1 tab, PO, Daily, 0 Refill(s). gabapentin: 600 mg, 2 cap, PO, Daily. glucagon: 1 mg, IM, PRN, PRN: Blood Glucose Results. glycopyrrolate: 0.2 mg, 1 mL, PYXIS, ONCE. glycopyrrolate: 0.2 mg, 1 mL, PYXIS, ONCE. glycopyrrolate: IV, ONCE. heparin: 10,000 unit, 10 mL, PYXIS, ONCE. heparin: 10,000 unit, 10 mL, PYXIS, ONCE. heparin: 10,000 unit, 10 mL, PYXIS, ONCE. heparin: 30,000 unit, 30 mL, PYXIS, ONCE. heparin: 10,000 unit, 10 mL, PYXIS, ONCE. heparin: IV, ONCE. hydrALAZINE: 10 mg, IVP, Q20Min, PRN: Elevated BP. hydromorphone: 0.5 mg, IVP, Q5Min, PRN: Pain Score 7- 10. insulin lispro: 600 mg, 0 Refill(s). iodixanol: 300 mL, PYXIS, ONCE. labetalol: 10 mg, IVP, Q5Min, PRN: Elevated BP. Lactated Ringers Injection IV: 1,000 mL, PYXIS, ONCE. Lactated Ringers Injection IV 1000 mL: IV, Stop: 06/11 03/29 13:01:00 CDT. Lactated Ringers Injection IV 1000 mL: 25 ml/hr, IV, Stop: 07/25/19 12:05:00 CDT. lactulose: 10 gm, 15 mL, PO, BID, 0 Refill(s). lidocaine: 5 mL, PYXIS, ONCE. lidocaine: IV, ONCE. lidocaine: IV, ONCE. metoclopramide: 10 mg, PO, BID, 0 Refill(s). metoprolol: 1 mg, IVP, Q5Min, PRN: Other -See Comment . naloxone: 0.4 mg, IVP, Q2MIN, PRN: Narcotic Reversal. neostigmine: 10 mg, 10 mL, PYXIS, ONCE. neostigmine: IV, ONCE. omeprazole: 40 mg, PO, Daily, 0 Refill(s). ondansetron: 8 mg, PO, Q8H, PRN nausea, 0 Refill(s). ondansetron: 4 mg, IVP, ONCE, PRN: Nausea and Vomitin g. ondansetron: IV, ONCE. OXcarbazepine: 150 mg, 1 tab, PO, Bedtime, for 30 day , 30 tab, 3 Refill(s). oxyCODONE: 5 mg, PO, Q4H, PRN: Pain Score 4-6. oxyCODONE: 5 mg, 1 tab, PYXIS, ONCE. phenylephrine: 1,000 microgram, 10 mL, PYXIS, ONCE. phenylephrine: 10 mg, 1 mL, PYXIS, ONCE. phenylephrine: 10 mg, 1 mL, PYXIS, ONCE. phenylephrine: 1,000 microgram, 10 mL, PYXIS, ONCE. phenylephrine: 10 mg, 1 mL, PYXIS, ONCE. polyethylene glycol 3350: 17 gm, PO, Daily, for 15 da y, 255 gm, 0 Refill(s). propofol: 200 mg, 20 mL, PYXIS, ONCE. propofol: IV, ONCE. propofol: 200 mg, 20 mL, PYXIS, ONCE. propofol: IV, ONCE. protamine: 50 mg, 5 mL, PYXIS, ONCE. protamine: IV, ONCE. rocuronium: 50 mg, 5 mL, PYXIS, ONCE. rocuronium: IV, ONCE. sodium chloride: 10 mL, PYXIS, ONCE. Sodium Chloride 0.9% IV: 1,000 mL, PYXIS, ONCE. Sodium Chloride 0.9% IV: 500 mL, PYXIS, ONCE. Sodium Chloride 0.9% IV: 1,000 mL, PYXIS, ONCE. Sodium Chloride 0.9% IV: 250 mL, PYXIS, ONCE. Sodium Chloride 0.9% IV 1,000 mL: 150 ml/hr, IV, Stop : 07/23/19 10:00:00 CDT. Sodium Chloride 0.9% IV 1000 mL: IV, Stop: 06/23/19 1 5:26:00 CDT. Sodium Chloride 0.9% IV 1,000 mL: 100 ml/hr, IV, Stop : 07/23/19 15:21:00 CDT. Sodium Chloride 0.9% IV 1000 mL: IV, Stop: 06/25/19 1 3:25:00 CDT. sterile water: 20 mL, PYXIS, ONCE. succinylcholine: 200 mg, 10 mL, PYXIS, ONCE. vancomycin: 1 gm, PYXIS, ONCE. vancomycin: 1 gm, PYXIS, ONCE. vancomycin 1000 mg: IV, Stop: 06/23/19 15:35:00 CDT. vancomycin 1000 mg: IV, Stop: 06/25/19 13:01:00 CDT. vancomycin + Sodium Chloride 0.9% IV 250 mL: 1 gm, 25 0 ml/hr, IV, PRE OP. Review of systems: General: No fevers chills, weight loss, weakness. HEENT: No blurring of vision, sore throa t, nasal congestion, epistaxis, tinnitus. Cardiovascular: No palpitations, chest p ain, syncope/near syncope, dyspnea on exertion, paroxysmal nocturnal dyspnea Respiratory: No shortness of breath, cough, pain with respir ation, hemoptysis Gastrointestinal: Normal appetite, no h ematemesis, vomiting, bloody stool, abdominal pain, diarrhea Genitourinary: No frequency, urgency, nocturia, hematuria or dysuria. Musculoskeletal: No arthralgias or myalgias. Dermatology: nonhealing wound Neurology: No headache, neck pain, numbn ess or tingling of the extremities. or weakness. Endocrine: No history of thyroid, diabetes or adrenal proble ms. Hematologic: No bleeding, petechiae ,bruising. Allergy: No asthma, urticaria. Psychiatric: No confusion or depression Physical Exam Vitals Tmp(F) Pulse BP RR SpO2 FIO2 06/25 18:35 ---- 88 118/49 17 100 --- 06/25 18:30 ---- 92 95/44 14 100 --- 06/25 18:25 ---- 89 86/46 15 100 --- 06/25 18:20 ---- 86 61/34 14 100 --- 06/25 18:15 ---- 89 59/40 22 100 --- 24 Hr Tmax: 98.5F (36.94c) at 06/25 18:0 7 Vital Signs are the last 5 in the past 48 hours. Gen: no acute distress HEENT: protecting airway Neuro: somnolent but wakes up Cardio: S1S2 reg, no murmurs Pulm: CTAB Abd: soft, normal bowel sounds Ext: no edema, no cyanosis, no limb ischemia, nonhealing low er extremity wound Labs (Last four charted values) WBC 5.4 (JUN 24) 7.5 (JUN 23) Hgb L 11.5 (JUN 24) L 11.0 (JUN 23) Hct L 34.1 (JUN 24) L 32.5 (JUN 23) Plt 154 (JUN 24) 161 (JUN 23) Na 140 (JUN 24) 140 (JUN 24) 142 (JUN 23) K 5.0 (JUN 24) 4.2 (JUN 24) 4.4 (JUN 23) CO2 26 (JUN 24) 24 (JUN 24) 30 (JUN 23) Cl 108 (JUN 24) 109 (JUN 24) 107 (JUN 23) Cr 1.23 (JUN 24) 1.11 (JUN 24) 1.30 (JUN 23) BUN 21 (JUN 24) 20 (JUN 24) H 23 (JUN 23) Glucose Random H 131 (JUN 24 ) H 106 (JUN 24) H 113 (JUN 23) Ca L 8.3 (JUN 24 ) L 8.1 (JUN 24) 8.6 (JUN 23) PT 14.7 (JUN 23) INR 1.17 (JUN 23) PTT 30.8 (JUN 23) Impression: 1. PVD with nonhealing LE wound s/p fem-tib bypass 2. Post op hypotension 3. CKD 4. h/o HTN 5. DM Plan: - ICU care - serial lower extremity neurovascular checks - cont fluid resuscitation with crystalloid and colloid - wean off pressors as tolerated - hold ARLYN inhibitor - prophylactic measures > 30 min spent reviewing vitals, labs, meds, and imaging Prognosis: guarded with high risk for clinical decline. Extracted from:Title: History and Physical Author: Delores Cunningham MD Date: 06/23/19 79 years old male with past medical hist ory significant for coronary artery disease, diabetes mellitus, hypertension, hyperlipidemia, peripheral neuropathy, [address] chronic kidney disease, GERD, ge neralized anxiety disorder, obstructive sleep apnea, osteoarthritis, and chronic back pain, who was directly admitted from vascular outpatient surgery after patient received angiogram today to hospitalist service with following impression. Impression Occluded left SFA - plan for fem-tib bypass - s/p abdominal aortogram with run off , bilateral LE CAD HTN DM CARMEN HLD peripheral neuropathy PAD STage III ckd GERD OA Chronic back pain Plan: resume home medication once available Cardiology for perioperative CV risk stratification and opti mization insulin sliding scale vascular surgery following heparin SC Admission will need more than two midnight hosptal stay Discussed with the patient/family member (s) about the plan of care.The above note is created using voice recognization software. There may still be errors in spellings/word in spite of careful proof-reading. Please interpret accordingly. Delores Cunningham MD [facility] Plan of Care No Data Provided for This Section Social History Social History Date Source No data available for this 07/19/2020 [facility] Social History TypeResponse 07/04/2019 [facility] Smoking Status Current every day smoker; Type: Cigarett es; Exposure to Tobacco Smoke smoker; Cigarette Smoking Last 365 Days Yes; Reg Smoking Cessation Counseling No; Tobacco use per day: 10; 1 entered on: 07/04/19 11 PK a day for 40yrs Family History No Data Provided for This Section Advance Directives No Data Provided for This Section Functional Status No Data Provided for This Section
--- OUTSIDE RECORDS SUMMARY | 2020-09-29 07:29 | XMS REPORT | Continuity of Care Document ---
:1940 Author Organization [facility] t Address [address] [place] [address] Care Team Providers Name Role Phone Anthony Bates Attending Clinician Chuckie Sena Attending Clinician Simeon Parisi Attending Clinician Abel Cunningham Attending Clinician Simeon Parisi Admitting Clinician Abel Cunningham Admitting Clinician Problems Condition Condition Condition Status Onset Resolution Last Treating Co mments Source Name Details Category Date Date Treatment Clinician Date HYPOTENSIO Diagnosis Active 2019-07-23 Memoria N 8-24 22:09:00 l 00:00: [place] HYPOTENSIO 00 N Active 07/04/2019 [facility] DEHYDRATIO Diagnosis Active 2019-07-04 Memoria N, RENAL 8 17:34:00 l FAILURE, 00:00: [place] HYPOTENSIO DEHYDRATIO 00 N N, RENAL FAILURE, HYPOTENSIO N Active 07/04/2019 [facility] PVD Diagnosis Active 2019-07-06 Mem oria 06-22 21:56:00 l PVD 00:00: [place] 00 Active 06/22/2019 [facility] UNK Diagnosis Active 2019-06-23 Mem oria 06-22 19:27:00 l UNK 00:00: [place] 00 Active 06/22/2019 [facility] Dehydratio Problem 2019-07-08 M emoria n 22:19:55 l Jeremias Dehydratio n 07/08/2019 [facility] Chronic Problem Resolve 2020-07-21 Mem oria pain d 21:21:18 l (finding) Chronic Herm jonas pain (finding) Resolved Problem 07/21/2020 legs and feet, back [facility] Cervical Problem Active 2020-07-21 Mem oria spondylosi 21:21:18 l s Cervical Telly n (disorder) spondylosi s (disorder) Active Problem 07/21/2020 [facility] Cervico-oc Problem Active 2020-07-21 M emoria cipital 21:21:18 l neuralgia [place] (finding) Cervico-oc cipital neuralgia (finding) Active Problem 07/21/2020 [facility] Chronic Problem Active 2020-07-21 Gabe carolynn back pain 21:21:18 l (disorder) Chronic Her bruno back pain (disorder) Active Problem 07/21/2020 [facility] Chronic Problem Active 2020-07-21 Gabe carolynn kidney 21:21:18 l disease Chronic Telly n stage 3 kidney (disorder) disease stage 3 (disorder) Active Problem 07/21/2020 [facility] Confusiona Problem Active 2020-07-21 M emoria l state 21:21:18 l (disorder) Telly n Confusiona l state (disorder) Active Problem 07/21/2020 [facility] Coronary Problem Active 2020-07-21 Mem oria arterioscl 21:21:18 l erosis Coronary Telly n (disorder) arterioscl erosis (disorder) Active Problem 07/21/2020 [facility] Diabetes Problem Active 2020-07-21 Mem oria mellitus 21:21:18 l (disorder) Diabetes He rmann mellitus (disorder) Active Problem 07/21/2020 [facility] Essential Problem Active 2020-07-21 Me moria hypertensi 21:21:18 l on Jeremias (disorder) Essential hypertensi on (disorder) Active Problem 07/21/2020 [facility] Gastroesop Problem Active 2020-07-21 M emoria hageal 21:21:18 l reflux [place] disease Gastroesop (disorder) hageal reflux disease (disorder) Active Problem 07/21/2020 [facility] Generalize Problem Active 2020-07-21 M emoria d anxiety 21:21:18 l disorder [place] (disorder) Generalize d anxiety disorder (disorder) Active Problem 07/21/2020 [facility] Headache Problem Active 2020-07-21 Mem oria (finding) 21:21:18 l Headache Telly n (finding) Active Problem 07/21/2020 [facility] Hyperlipid Problem Active 2020-07-21 M emoria emia 21:21:18 l (disorder) Telly n Hyperlipid emia (disorder) Active Problem 07/21/2020 [facility] Insomnia Problem Active 2020-07-21 Mem oria (disorder) 21:21:18 l Insomnia Telly n (disorder) Active Problem 07/21/2020 [facility] Obstructiv Problem Active 2020-07-21 M emoria e sleep 21:21:18 l apnea Jeremias syndrome Obstructiv (disorder) e sleep apnea syndrome (disorder) Active Problem 07/21/2020 [facility] Osteoarthr Problem Active 2020-07-21 M emoria itis 21:21:18 l (disorder) Telly n Osteoarthr itis (disorder) Active Problem 07/21/2020 [facility] Peripheral Problem Active 2020-07-21 M emoria nerve 21:21:18 l disease Jeremias (disorder) Peripheral nerve disease (disorder) Active Problem 07/21/2020 [facility] Tremor Problem Active 2020-07-21 Memor ia (finding) 21:21:18 l Tremor [place] (finding) Active Problem 07/21/2020 [facility] HYPOTENSIO Diagnosis Active 2019-07-23 Memoria N, 22:09:00 l UNSPECIFIE Telly n D HYPOTENSIO N, UNSPECIFIE D Active [facility] DEHYDRATIO Diagnosis Active 2019-07-04 Memoria N 17:34:00 l Jeremias DEHYDRATIO N Active [facility] PERIPHERAL Diagnosis Active 2019-07-06 Memoria VASCULAR 21:56:00 l DISEASE, [place] UNSPECIFIE PERIPHERAL D VASCULAR DISEASE, UNSPECIFIE D Active [facility] History of Past Illness Condition Condition Condition Status Onset Resolution Last Treating Co mments Source Name Details Category Date Date Treatment Clinician Date Nerve Problem Resolve 1994-2020-07-21 2020-07-21 Memoria injury d 812 21:21:18 21:21:18 l (disorder) Nerve 00:00: Pilar nn injury 00 (disorder) Resolved 06/22/1995 Problem 07/21/2020 [facility] Hypertensi Problem Resolve 1987-0 2020-07-21 2020-07-21 Memoria ve d 812 21:21:18 21:21:18 l disorder, 00:00: [place] systemic Hypertensi 00 arterial ve (disorder) disorder, systemic arterial (disorder) Resolved 06/22/1988 [facility] 07[facility] Allergies, Adverse Reactions, Alerts Allergy Allergy Status Severity Reaction(s) Onset Inactive Treating Comm ents Source Name Type Date Date Clinician morphine morphine Active Memori a l Jeremias Dilaudid Dilaudid Active Memori a l Jeremias iodine iodine Active Memoria l Jeremias Social History Social Habit Start Date Stop Date Quantity Comments Source Social History 2020-07-19 2020-07-19 [facility] bird 15:00:00 15:00:00 Smoking Status Start Date Stop Date Source Social History 2019-07-04 22:41:06 [facility] Medications Ordered Filled Start Stop Current Ordering Indication Dosage Frequency Signature Comments Components Source Medication Medication Date Date Medication? Clinician (SIG) Name Name DULoxetine Yes 30 mg = 1 Me moria 30 mg oral 5-06 cap, PO, l delayed 15:03: Daily, # Telly n release 00 30 cap, 6 capsule Refill(s), Pharmacy: [facility] Acetaminoph Yes 1 cap, PO, Memoria en 300 MG / 2-06 Q4H, 0 l butalbital 22:03: Refill(s) He rmann 50 MG / 00 Caffeine 40 MG Oral Capsule omeprazole Yes 40 mg = 1 Me moria 40 mg oral 2-06 cap, PO, l delayed 22:03: Daily, 0 Tlely n release 00 Refill(s) capsule terazosin 2 2019- Yes 2 mg = 1 Me moria mg oral 2-06 cap, PO, l capsule 22:03: Bedtime, 0 Herm jonas 00 Refill(s) Ondansetron Yes 8 mg = 1 Me moria 8 MG Oral 2-06 tab, PO, l Tablet 22:03: TID, 0 Refill(s) Metoclopram Yes 10 mg = 1 M emoria geoff 10 MG 2-06 tab, PO, l Oral Tablet 22:03: Daily, 0 He rm Refill(s) duloxetine Yes 20 mg = 1 Me moria 20 MG 2-06 cap, PO, l Enteric 18:34: Daily, # Telly n Coated 00 30 cap, 3 Capsule Refill(s), [Cymbalta] Pharmacy: [facility] citalopram No 0 Memoria 40 mg oral 2-06 Refill(s) l tablet 18:30: Zofran No Notes: Memoria 07-06 (Same as: l 02:49: Zofran) MEDICATION WASTE Product Size: 4 mg Product Wasted: ___ mg atorvastati No Notes: Gabe carolynn n 07-06 (Same as: l 02:00: Lipitor) Citalopram No 20 mg, 2 Mem oria 07-06 tab, l 02:00: Route: PO, Drug form: TAB, Daily, Dosing Weight 87.415, kg, Start date: 07/05/19 21:00:00 CDT, Duration: 30 day, Stop date: 08/04/19 9:00:00 CDT, 0 Acetaminoph No Notes: Do M emoria en 07-05 not exceed l 23:41: 4 gm/day. (Same as: Tylenol) Lactulose No Notes: Memori a 667 MG/ML 07-05 (Same l Oral 18:29: as:Chronul Solution ac) Oxycontin No Notes: Do Mem oria 07-05 not crush l 15:21: or chew. (Same as: OxyContin) Dextrose No 12.5 gm, Memor ia 50% Syringe 07-05 25 mL, l 14:30: Route: IVP, Drug Form: INJ, Dosing Weight 87.415, kg, PRN, PRN Blood Glucose Results, Start date: 07/05/19 9:30:00 CDT, Duration: 30 day, Stop date: 08/04/19 9:29:00 CDT, 0 Glucagon No 1 mg, Memoria 07-05 Route: IM, l 14:30: Drug form: Jeremias 00 PDR/INJ, PRN, Dosing Weight 87.415, kg, PRN Blood Glucose Results, Start date: 07/05/19 9:30:00 CDT, Duration: 30 day, Stop date: 08/04/19 9:29:00 CDT, 0 Insulin No Notes: Memoria Lispro 07-05 (Same as: l 14:30: Humalog) Roll in palms of hands gently; Do not shake vigorously . WASTE: F/P - Black; E - Municipal Trash Bin Stable for 28 days at room temperatur e. Expires in days from ____Date Dopamine No Notes: Memoria - (Same as: l 14:30: Intropin) Administer by either central venous catheter or peripheral ly-inserte d central catheter (PICC) line. Final conc = 3.2 mg/ml. Premix solution. Simvastatin No Notes: Gabe carolynn 07-05 (Same as: l 14:00: Zocor) Aspirin No Notes: Do Memor ia - not crush l 10:00: or chew. (Same As: Ecotrin) Lovenox No Notes: Memoria 8-25 (Same as: l 09:30: Lovenox) cefepime No Notes: Memoria 8-25 (Same As: l 03:00: Maxipime) MEDICATION WASTE Product Size: 1000 mg Product Wasted: ___ mg Trazodone No Notes: Memori a -25 (Same As: l 02:00: Desyrel) Calcium No 1,000 mL, Memor ia Chloride 07-04 Rate: 100 l 0.0014 23:07: ml/hr, MEQ/ML / 00 Infuse Potassium over: 10 Chloride hr, Route: 0.004 IV, Dosing MEQ/ML / Weight Sodium 87.415 kg, Chloride Total 0.103 Volume: MEQ/ML / 1,000, Sodium Start Lactate date: 0.028 07/04/19 MEQ/ML 18:07:00 Injectable CDT, Solution Duration: 30 day, Stop date: 08/03/19 18:06:00 CDT, 2.08, m2, 0 lactulose Yes 10 gm = 1 Mem oria 10 g oral 8-24 ea, PO, l powder 22:51: BID, 0 [place] 00 Refill(s) AMIODarone Yes 200 mg = 1 M emoria 200 mg oral 8-22 tab, PO, l tablet 19:30: Daily, # [place] 00 30 tab, 0 Refill(s), Pharmacy: [facility] Aspirin 81 Yes 81 mg = 1 Me moria MG Enteric 8-22 tab, PO, l Coated 19:30: Daily, # Jeremias Tablet 00 30 tab, 0 Refill(s), Pharmacy: [facility] Docusate Yes 100 mg = 1 Mem oria Sodium 100 8-22 cap, PO, l MG Oral 19:30: BID, # 60 Pilar nn Capsule 00 cap, 0 Refill(s), Pharmacy: [facility] Famotidine Yes 20 mg = 1 Me moria 20 MG Oral 8-22 tab, PO, l Tablet 19:30: BID, # 60 Telly n 00 tab, 0 Refill(s), Pharmacy: [facility] metoprolol Yes 12.5 mg = Me moria 25 mg oral 8-22 0.5 tab, l tablet, 19:30: PO, Daily, Herm jonas extended 00 # 15 tab, release 0 Refill(s), Pharmacy: [facility] polyethylen Yes See Memori a e glycol 8-22 Instructio l 3350 oral 19:30: ns, PRN Pilar nn kit 00 Constipati on, PO BID, # 30 kit, 0 Refill(s), Pharmacy: [facility] sennosides, Yes 17.2 mg = M emoria [facility] HOME 8.6 MG 8-22 2 tab, PO, l Oral Tablet 19:30: Bedtime, X [place] 00 14 day, # 28 tab, 0 Refill(s), Pharmacy: [facility] Amiodarone No Notes: Memor ia 07-02 (Same as: l 14:00: Cordarone) AMIODarone No 2 mg/ml. Me moria 900 mg in 06-30 Use Glass l D5W 500 ml 21:50: Bottle or He rmann IV 900 mg + 00 Non PVC Dextrose 5% Bag "Use in Water IV 0.22 482 mL micron in-line filter" MEDICATION WASTE Product Size: 900 mg Product Wasted: ___ mg Amiodarone No 2 mg/ml. Me moria 06-30 "Recommend l 21:50: ation: Use Jeremias 00 an in-line filter during administra tion for continuous infusions to reduce the incidence of phlebitis" (Same as Codarone) MEDICATION WASTE Product Size: 150 mg Product Wasted: ___ mg Furosemide No Notes: Memor ia 06-30 (Same as: l 20:38: Lasix) Miralax No Notes: Memoria 06-30 Dissolve l 15:04: in 8 oz of water or juice. (Same as: Miralax) glycerin No 1 supp, Memori a adult 06-30 Route: [place], l rectal 15:03: Drug Form: Pilar nn suppository 00 SUPP, Dosing Weight 83.182, kg, Daily, PRN Constipati on, Start date: 06/30/19 10:03:00 CDT, Duration: 30 day, Stop date: 07/30/19 10:02:00 CDT, 0 Fleet Enema No 12 years, Memoria 06-30 Pediatric l 15:03: Dosing, 0 citalopram No 20 mg = 1 Me moria 20 mg oral - tab, PO, l tablet 14:15: Daily, # [place] 00 30 tab, 0 Refill(s) metoprolol No Notes: Memor ia extended 06-30 (Same as: l release 14:00: Toprol XL) Herm jonas Do Not Crush Lasix No Notes: Memoria 06-29 (Same as: l 00:00: Lasix) [place] 00 MEDICATION WASTE Product Size: 40 mg Product Wasted: ___ mg Lasix No Notes: Memoria 06-28 (Same as: l 20:52: Lasix) Jeremias 00 MEDICATION WASTE Product Size: 40 mg Product Wasted: ___ mg Insulin No Notes: Memoria Lispro 06-28 (Same as: l 13:40: Humalog) Roll in palms of hands gently; Do not shake vigorously . WASTE: F/P - Black; E - Municipal Trash Bin Stable for 28 days at room temperatur e. Expires in days from ____Date Alprazolam No Notes: Memor ia 06-27 With food l 22:51: or milk [place] 00 (Same as: Xanax) potassium No Notes: Memori a phosphate-s 06-27 (Same as: l odium 16:00: Phos-NaK) phosphate Each 1.5 gm pkt has 250mg phosphorou s. Mix w/2.5oz water and stir. K-Dur 10 No Notes: Memoria 06-27 (Same as: l 15:10: K-Dur 10) "Do Not Crush" With food and full glass of water LR IV 1,000 No 1,000 mL, M emoria mL 06-27 Rate: 100 l 14:52: ml/hr, [place] 00 Infuse over: 10 hr, Route: IV, Dosing Weight 83.182 kg, Total Volume: 1,000, Start date: 06/27/19 9:52:00 CDT, Duration: 30 day, Stop date: 07/27/19 9:51:00 CDT, 2, m2, 0 Reglan No Notes: Memoria 06-27 (Same as: l 14:51: Reglan) Jeremias 00 Potassium No Notes: Memori a Chloride 06-27 (Same as: l 14:51: KCL) Jeremias 00 Infuse no faster than 10 mEq/hr if given peripheral ly. sodium No Notes: Memoria phosphate - Infuse l 14:51: over 4 [place] 00 hour. Do not infuse phosphorou s concurrent ly in the same line as TPN or IVF that contains calcium. For double lumen central lines, phosphorou s may be infused in a separate lumen from TPN. potassium No Notes: Memori a phosphate - (Same as: l 14:51: K Jeremias 00 Phosphate. ) Do not infuse phosphorou s concurrent ly in the same line as TPN or IVF that contains calcium. For double lumen central lines, phosphorou s may be infused in a separate lumen from TPN. 1 mMol phoshate has 1.47 mEq potassium Infuse over 4 hours potassium No Notes: Memori a phosphate-s 06-27 (Same as: l odium 14:51: Phos-NaK) Jeremias phosphate 00 Each 1.5 250 mg-280 gm pkt has mg-160 mg 250mg oral powder phosphorou for s. Mix reconstitut w/2.5oz ion water and stir. Magnesium No Notes: Memori a Sulfate 06-27 WASTE: F/P l 14:51: - Sink; E - Municipal Trash Bin Magnesium No Notes: Memori a Oxide 06-27 (Same as: l 14:51: Mag-Ox Jeremias 00 400) Magnesium oxide [id number] g elemental magnesium Dose=____m g magnesium oxide (___mg elemental magnesium) Calcium No Notes: Memoria Gluconate 06-27 WASTE: F/P l 14:51: - Sink; E [place] 00 - Municipal Trash Bin Calcium No Notes: Memoria Carbonate 06-27 (Same As: l 500 MG 14:51: Tums) Jeremias Chewable 00 Calcium Tablet Carbonate 500 mg = 200 mg elemental calcium Dose = mg calcium carbonate ( mg elemental calcium) Hydralazine No Notes: Gabe carolynn 17 (Same as: l 07:53: Apresoline ) Push over 5 minutes Pepcid No Notes: Memoria 8-16 (Same as: l 22:00: Pepcid) Tylenol No Notes: Do Memor ia 8-16 not exceed l 15:25: 4 gm/day. (Same as: Tylenol) Dexamethaso No 10 mg, 2.5 Memoria ne 8-16 mL, Route: l 12:57: IVP, Drug form: INJ, ONCE, Dosing Weight 83.182, kg, Start date: 06/26/19 7:57:00 CDT, Stop date: 06/26/19 7:57:00 CDT, 0 Compazine No Notes: Memori a 8-16 (Same as: l 12:57: Compazine) Benadryl No Notes: Memoria 8-16 (Same as: l 12:57: Benadryl) albumin No 25 gm, Memoria human 25% 06-25 Route: l intravenous 23:39: IVPB, Pilar nn solution 00 ONCE, Dosing Weight 83.182, kg, Start date: 06/25/19 18:39:00 CDT, Stop date: 06/25/19 18:39:00 CDT, Indication : Non-hemorr hagic shock ePHEDrine No Route: IV, Me moria (ANES) 06-25 Drug form: l 23:25: INJ, ONCE, Stop date: 06/25/19 18:25:00 CDT Norepinephr No Notes: Gabe carolynn ine 15 Same as: l 23:14: Levophed. Administer by either central venous catheter or peripheral ly-inserte d central catheter (PICC) line. Concentrat ion: 0.032 mg / mL Hydralazine No 10 mg, Gabe carolynn -15 Route: l 22:57: IVP, [place] 00 Q20Min, Dosing Weight 83.182, kg, PRN Elevated BP, Start date: 06/25/19 17:57:00 CDT, Duration: 2 doses or times, Stop date: Limited # of times Labetalol No 10 mg, Memori a 8-15 Route: l 22:57: IVP, Jeremias 00 Q5Min, Dosing Weight 83.182, kg, PRN Elevated BP, Start date: 06/25/19 17:57:00 CDT, Duration: 5 doses or times, Stop date: Limited # of times Metoprolol 2019-0 No 1 mg, Memori a 815 Route: l 22:57: IVP, [place] 00 Q5Min, Dosing Weight 83.182, kg, PRN Other -See Comment, Start date: 06/25/19 17:57:00 CDT, Duration: 5 doses or times, Stop date: Limited # of times Acetaminoph 2019-0 No 1,000 mg, M emoria en 06-25 Route: l 22:57: IVPB, Drug [place] 00 form: INJ, ONCE, Dosing Weight 83.182, kg, PRN Pain Score 1-3, Start date: 06/25/19 17:57:00 CDT Oxycodone 2019-0 No 5 mg, Memoria Hydrochlori 15 Route: PO, l de 5 MG 22:57: Drug form: Herm jonas Oral Tablet 00 TAB, Q4H, Dosing Weight 83.182, kg, PRN Pain Score 4-6, Start date: 06/25/19 17:57:00 CDT, Duration: 30 day, Stop date: 07/25/19 17:56:00 CDT Fentanyl 2019-0 No 25 Memoria 8-15 microgram, l 22:57: Route: [place] 00 IVP, Q5Min, Dosing Weight 83.182, kg, PRN Pain Score 4-6, Priority: Routine, Start date: 06/25/19 17:57:00 CDT, Duration: 4 doses or times, Stop date: Limited # of times Hydromorpho 2019-0 No 0.5 mg, Mem oria ne 815 Route: l 22:57: IVP, [place] 00 Q5Min, Dosing Weight 83.182, kg, PRN Pain Score 7-10, Start date: 06/25/19 17:57:00 CDT, Duration: 4 doses or times, Stop date: Limited # of times Flumazenil 2019-0 No 0.2 mg, Gabe carolynn 815 Route: l 22:57: IVP, PRN, Jeremias 00 Dosing Weight 83.182, kg, PRN Benzodiaze pine Reversal, Initial dose, Start date: 06/25/19 17:57:00 CDT, Duration: 30 day, Stop date: 07/25/19 17:56:00 CDT Naloxone No 0.4 mg, Memori a 06-25 Route: l 22:57: IVP, Q2MIN, Dosing Weight 83.182, kg, PRN Narcotic Reversal, Start date: 06/25/19 17:57:00 CDT, Duration: 8 doses or times, Stop date: Limited # of times Ondansetron 2019 No 4 mg, Memor ia 8 Route: l 22:57: IVP, ONCE, Dosing Weight 83.182, kg, PRN Nausea & Vomiting, Start date: 06/25/19 17:57:00 CDT glycopyrrol No Route: IV, Memoria ate (ANES) 06-25 Drug form: l 22:18: INJ, ONCE, Stop date: 06/25/19 17:18:00 CDT neostigmine No Route: IV, Memoria (ANES) 815 Drug form: l 22:18: INJ, ONCE, Stop date: 06/25/19 17:18:00 CDT ondansetron No Route: IV, Memoria (ANES) 8 Drug form: l 22:18: INJ, ONCE, Stop date: 06/25/19 17:18:00 CDT Lovenox No Notes: Memoria 8-15 (Same as: l 22:00: Lovenox) normal No 1,000 mL, Memori a saline 0.9% 8-15 Rate: 100 l IV 1,000 mL 21:47: ml/hr, Infuse over: 10 hr, Route: IV, Dosing Weight 83.182 kg, Total Volume: 1,000, Start date: 06/25/19 16:47:00 CDT, Duration: 30 day, Stop date: 07/25/19 16:46:00 CDT, 2, m2, 0 protamine No Route: IV, Me moria (ANES) 06-25 Drug form: l 21:22: INJ, ONCE, Stop date: 06/25/19 16:22:00 CDT acetaminoph 2019-0 No Route: IV, Memoria en (ANES) 8-15 Drug form: l 20:04: INJ, ONCE, Stop date: 06/25/19 15:04:00 CDT heparin 2019-0 No Route: IV, Gabe carolynn (ANES) 8-15 Drug form: l 19:23: INJ, ONCE, Stop date: 06/25/19 14:23:00 CDT albumin 2019-0 No Route: IV, Gabe carolynn human 8-15 Drug form: l (ANES) 25 18:36: INJ, Start He rmann date: 06/25/19 13:36:00 CDT, Stop date: 06/25/19 14:36:00 CDT lidocaine 2019-0 No Route: IV, Me moria (ANES) 8-15 Drug form: l 18:17: INJ, ONCE, Stop date: 06/25/19 13:17:00 CDT fentaNYL 2019-0 No Route: IV, Mem oria (ANES) 8-15 Drug form: l 18:17: INJ, ONCE, Stop date: 06/25/19 13:17:00 CDT propofol 2019-0 No Route: IV, Mem oria (ANES) 8-15 Drug form: l 18:17: INJ, ONCE, Stop date: 06/25/19 13:17:00 CDT rocuronium 2019-0 No Route: IV, M emoria (ANES) 8-15 Drug form: l 18:17: INJ, ONCE, Stop date: 06/25/19 13:17:00 CDT ceFAZolin 2019-0 No Route: IV, Me moria (ANES) 8-15 Drug form: l 18:17: INJ, ONCE, Stop date: 06/25/19 13:17:00 CDT Sodium 2019-0 No Route: IV, Memor ia Chloride 8-15 Total l 0.9% IV 17:25: Volume: [place] (ANES) 1000 00 1,000, mL Start date: 06/25/19 12:25:00 CDT, Stop date: 06/25/19 13:25:00 CDT Calcium 2018- No 1,000 mL, Memor ia Chloride 06-25 Rate: 25 l 0.0014 17:06: ml/hr, Jeremias MEQ/ML / 00 Infuse Potassium over: 40 Chloride hr, Route: 0.004 IV, Dosing MEQ/ML / Weight Sodium 83.182 kg, Chloride Total 0.103 Volume: MEQ/ML / 1,000, Sodium Start Lactate date: 0.028 06/25/19 MEQ/ML 12:06:00 Injectable CDT, Solution Duration: 30 day, Stop date: 07/25/19 12:05:00 CDT, 2, m2 vancomycin No Route: IV, M emoria (ANES) 1000 06-25 Drug form: l mg 17:01: INJ, Start date: 06/25/19 12:01:00 CDT, Stop date: 06/25/19 13:01:00 CDT Lactated No Route: IV, Mem oria Ringers 06-25 Total l Injection 17:01: Volume: Pilar nn IV (ANES) 00 1,000, 1000 mL Start date: 06/25/19 12:01:00 CDT, Stop date: 06/25/19 13:01:00 CDT Norepinephr No Notes: Gabe carolynn ine 15 Same as: l 14:13: Levophed. Administer by either central venous catheter or peripheral ly-inserte d central catheter (PICC) line. Concentrat ion: 0.032 mg / mL Lovenox No Notes: Memoria 8-14 (Same as: l 14:00: Lovenox) Jeremias 00 Docusate No Notes: Memoria 8-14 (Same as: l 14:00: Colace) (Do Not Crush) Aspirin No Notes: Do Memor ia 8-14 not crush l 14:00: or chew. (Same As: Ecotrin) Citalopram No 40 mg, 4 Mem oria 8-14 tab, l 14:00: Route: PO, Drug form: TAB, Daily, Dosing Weight 83.182, kg, Start date: 06/24/19 9:00:00 CDT, Duration: 30 day, Stop date: 07/23/19 9:00:00 CDT, 0 gabapentin No Notes: Memor ia 600 MG Oral 8-14 (Same as: l Tablet 14:00: Neurontin) Pilar nn 00 Simvastatin No Notes: Gabe carolynn 8-14 (Same as: l 14:00: Zocor) Jeremias 00 Alprazolam No Notes: Memor ia 8-14 With food l 14:00: or milk Jeremias 00 (Same as: Xanax) Lisinopril No Notes: Memor ia 8-14 (Same as: l 14:00: Prinivil, [place] Zestril) Zofran No Notes: Memoria 8-14 (Same as: l 02:46: Zofran) MEDICATION WASTE Product Size: 4 mg Product Wasted: ___ mg sennosides, No Notes: Gabe carolynn NURSING HOME 8-14 (Same as: l 02:00: Senokot) Jeremias 00 200 ACTUAT No Notes: SEE M emoria Albuterol 8-14 RT l 0.09 01:00: DOCUMENTAT [place] MG/ACTUAT 00 ION (Same Metered as: Dose Proventil) Inhaler [ProAir HFA] oxyCODONE No Notes: Do Mem oria 10 mg 8-14 not crush l extended 00:54: or chew. Pilar nn release 00 (Same as: OxyContin) gabapentin Yes 600 mg = 1 M emoria 600 MG Oral 8-14 tab, PO, l Tablet 00:41: TID, # 270 Pilar nn 00 tab, 0 Refill(s) Dextrose No 12.5 gm, Memor ia 50% Syringe 06-23 25 mL, l 22:52: Route: Jeremias IVP, Drug Form: INJ, Dosing Weight 83.182, kg, PRN, PRN Blood Glucose Results, Start date: 06/23/19 17:52:00 CDT, Duration: 30 day, Stop date: 07/23/19 17:51:00 CDT, 0 Glucagon No 1 mg, Memoria 8-13 Route: IM, l 22:52: Drug form: PDR/INJ, PRN, Dosing Weight 83.182, kg, PRN Blood Glucose Results, Start date: 06/23/19 17:52:00 CDT, Duration: 30 day, Stop date: 07/23/19 17:51:00 CDT, 0 Insulin 2018-0 No Notes: Memoria Lispro 06-23 (Same as: l 22:52: Humalog) Roll in palms of hands gently; Do not shake vigorously . WASTE: F/P - Black; E - Municipal Trash Bin Stable for 28 days at room temperatur e. Expires in days from ____Date Oxycodone 0 No Notes: Memori a Hydrochlori 06-23 (Same as: l de 5 MG 22:49: Roxicodone Herm jonas Oral Tablet ) Dextrose No 12.5 gm, Memor ia 50% Syringe 06-23 25 mL, l 22:47: Route: IVP, Drug Form: INJ, Dosing Weight 83.182, kg, PRN, PRN Blood Glucose Results, Start date: 06/23/19 17:47:00 CDT, Duration: 30 day, Stop date: 07/23/19 17:46:00 CDT, 0 Glucagon No 1 mg, Memoria 06-23 Route: IM, l 22:47: Drug form: PDR/INJ, PRN, Dosing Weight 83.182, kg, PRN Blood Glucose Results, Start date: 06/23/19 17:47:00 CDT, Duration: 30 day, Stop date: 07/23/19 17:46:00 CDT, 0 Trazodone 2018-0 No Notes: Memori a 06-23 (Same As: l 22:47: Desyrel) Lovenox 0 No 40 mg, Memoria 06-23 Route: l 21:00: SUB-Q, Drug form: INJ, Q24H, Dosing Weight 83.182, kg, Priority: Within 8 hours, Start date: 06/23/19 16:00:00 CDT, Duration: 30 day, Stop date: 07/22/19 16:00:00 CDT Hydralazine 2019-0 No 10 mg, Gabe carolynn 8 Route: l 20:27: IVP, [place] 00 Q20Min, Dosing Weight 83.182, kg, PRN Elevated BP, Start date: 06/23/19 15:27:00 CDT, Duration: 2 doses or times, Stop date: Limited # of times Labetalol 2019-0 No 10 mg, Memori a 06-23 Route: l 20:27: IVP, [place] 00 Q5Min, Dosing Weight 83.182, kg, PRN Elevated BP, Start date: 06/23/19 15:27:00 CDT, Duration: 5 doses or times, Stop date: Limited # of times Metoprolol 2019-0 No 1 mg, Memori a 06-23 Route: l 20:27: IVP, [place] 00 Q5Min, Dosing Weight 83.182, kg, PRN Other -See Comment, Start date: 06/23/19 15:27:00 CDT, Duration: 5 doses or times, Stop date: Limited # of times Acetaminoph 2019-0 No 1,000 mg, M emoria en 06-23 Route: l 20:27: IVPB, Drug [place] 00 form: INJ, ONCE, Dosing Weight 83.182, kg, PRN Pain Score 1-3, Start date: 06/23/19 15:27:00 CDT Oxycodone 2019-0 No 5 mg, Memoria Hydrochlori 06-23 Route: PO, l de 5 MG 20:27: Drug form: Herm jonas Oral Tablet 00 TAB, Q4H, Dosing Weight 83.182, kg, PRN Pain Score 4-6, Start date: 06/23/19 15:27:00 CDT, Duration: 30 day, Stop date: 07/23/19 15:26:00 CDT Fentanyl 2019-0 No 25 Memoria 8- microgram, l 20:27: Route: Jerem[place] 00 IVP, Q5Min, Dosing Weight 83.182, kg, PRN Pain Score 4-6, Priority: Routine, Start date: 06/23/19 15:27:00 CDT, Duration: 4 doses or times, Stop date: Limited # of times Hydromorpho 2019-0 No 0.5 mg, Mem oria ne 06-23 Route: l 20:27: IVP, [place] 00 Q5Min, Dosing Weight 83.182, kg, PRN Pain Score 7-10, Start date: 06/23/19 15:27:00 CDT, Duration: 4 doses or times, Stop date: Limited # of times Flumazenil 2019-0 No 0.2 mg, Gabe carolynn 06-23 Route: l 20:27: IVP, PRN, Dosing Weight 83.182, kg, PRN Benzodiaze pine Reversal, Initial dose, Start date: 06/23/19 15:27:00 CDT, Duration: 30 day, Stop date: 07/23/19 15:26:00 CDT Naloxone 2019-0 No 0.4 mg, Memori a 06-23 Route: l 20:27: IVP, [place] 00 Q2MIN, Dosing Weight 83.182, kg, PRN Narcotic Reversal, Start date: 06/23/19 15:27:00 CDT, Duration: 8 doses or times, Stop date: Limited # of times Ondansetron 2018-0 No 4 mg, Memor ia 06-23 Route: l 20:27: IVP, ONCE, Dosing Weight 83.182, kg, PRN Nausea & Vomiting, Start date: 06/23/19 15:27:00 CDT normal 2018-0 No 1,000 mL, Memori a saline 0.9% 06-23 Rate: 100 l IV 1,000 mL 20:22: ml/hr, Infuse over: 10 hr, Route: IV, Dosing Weight 83.182 kg, Total Volume: 1,000, Start date: 06/23/19 15:22:00 CDT, Duration: 30 day, Stop date: 07/23/19 15:21:00 CDT, 2, m2, 0 fentaNYL No Route: IV, Mem oria (ANES) 06-23 Drug form: l 20:16: INJ, ONCE, Stop date: 06/23/19 15:16:00 CDT lidocaine 2018-0 No Route: IV, Me moria (ANES) 06-23 Drug form: l 20:13: INJ, ONCE, Stop date: 06/23/19 15:13:00 CDT propofol 2019-0 No Route: IV, Mem oria (ANES) 06-23 Drug form: l 20:13: INJ, ONCE, Stop date: 06/23/19 15:13:00 CDT vancomycin 2019-0 No Route: IV, Andriy emoria (ANES) 1000 06-23 Drug form: l mg 19:35: INJ, Start date: 06/23/19 14:35:00 CDT, Stop date: 06/23/19 15:35:00 CDT ceFAZolin 2018-0 No Route: IV, moria (ANES) 1000 06-23 Drug form: l mg 19:30: INJ, Start date: 06/23/19 14:30:00 CDT, Stop date: 06/23/19 15:30:00 CDT Sodium 2019-0 No Route: IV, Memor ia Chloride 06-23 Total l 0.9% IV 19:26: Volume: [place] (ANES) 999 1,000, mL Start date: 06/23/19 14:26:00 CDT, Stop date: 06/23/19 15:26:00 CDT Ancef + No Notes: Memoria sterile 06-23 (Same As: l water 20 mL 16:00: Anc, Kefzol) MEDICATION WASTE Product Size: 1000 mg Product Wasted: ___ mg Vancomycin 2018- No 2001 mg: Me moria 06-23 infuse l 16:00: over 2.5 [place] 00 hours For adult patients only: Round to nearest 250 mg per Medical Staff approval MEDICATION WASTE Product Size: 1000 mg Product Wasted: ___ mg Acetylcyste 2018-0 No Notes: Gabe carolynn ine 200 06-23 SEND TO l MG/ML 16:00: PRE-OP Jeremias Inhalant 00 SEND TO Solution PRE-OP SEND TO PRE-OP NS 1,000 mL 2019-0 No 1,000 mL, Andriy emoria 06-23 Rate: 150 l 15:01: ml/hr, Infuse over: 6.7 hr, Route: IV, Dosing Weight 84.545 kg, Total Volume: 1,000, Start date: 06/23/19 10:01:00 CDT, Duration: 30 day, Stop date: 07/23/19 10:00:00 CDT, 2.06, m2, 0 oxcarbazepi 2017-11 Yes 150 mg = 1 Memoria ne 150 MG - tab, PO, l Oral Tablet 20:04: Bedtime, # Jeremias [Trileptal] 00 30 tab, 3 Refill(s), Pharmacy: [facility] gabapentin 2017-11 Yes 600 mg = 1 M emoria 600 MG Oral 11-11 tab, PO, l Tablet 17:59: Daily, 0 [place] 00 Refill(s) Citalopram 2017-11 Yes 40 mg, PO, M emoria 11-11 Daily, 0 l 17:59: Refill(s) [place] 00 200 ACTUAT 2017-11 Yes 2 puff, Gabe carolynn Albuterol 11-11 INHALATION l 0.09 17:59: , Q6H, 0 [place] MG/ACTUAT 00 Refill(s) Metered Dose Inhaler [ProAir HFA] Lactulose 2017-11 Yes 10 gm = 15 Me moria 667 MG/ML 11-11 mL, PO, l Oral 17:59: BID, 0 Jeremias Solution 00 Refill(s) Omeprazole 2017-11 Yes 40 mg, PO, M emoria 11-11 Daily, 0 l 17:59: Refill(s) [place] 00 Diclofenac 2017-11 Yes PO, 0 Memori a 11-11 Refill(s) l 17:59: Jeremias 00 Docusate 2017-11 Yes 100 mg = 1 Mem oria Sodium 100 11-11 cap, PO, l MG Oral 17:59: Daily, 0 Telly n Capsule 00 Refill(s) Metoclopram 2017-11 Yes 10 mg, PO, Memoria geoff 11-11 BID, 0 l 17:59: Refill(s) [place] 00 Alprazolam 2017-11 Yes 1 mg, PO, Me moria 11-11 TID, PRN l 17:59: anxity, 0 Jeremias 00 Refill(s) Aspirin 2017-11 Yes 81 mg, PO, Gabe carolynn 11-11 Daily, 0 l 17:59: Refill(s) Jeremias 00 POLYETHYLEN 2017-11 Yes 17 gm, PO, Memoria E GLYCOL 11-11 Daily, # l 3350 142 17:59: 255 gm, 0 Herm jonas MG/ML Oral 00 Refill(s) Solution [Miralax] Trazodone 2017-11 Yes 50 mg, PO, Me moria 11-11 Bedtime, 0 l 17:59: Refill(s) [place] 00 oxyCODONE 2017-11 Yes 80 mg = 1 Mem oria 80 mg oral 11-11 tab, PO, l tablet, 17:59: TID, PRN Telly n extended 00 pain, 0 release Refill(s) ProAir HFA 2017-11 Yes 1 - 2 Memori a 11-11 puffs, l 17:59: INHALATION Jeremias 00 , Q6H, PRN Wheezing / cough / shortness of breath, # 1 ea, 0 Refill(s) Diclofenac 2017-11 Yes See Memoria Sodium 0.01 11-11 Instructio l MG/MG 17:59: ns, 2 Jeremias Topical Gel 00 mg-4mgTOP QID affected area, 0 Refill(s) Lisinopril 2017-11 Yes 10 mg, PO, M emoria 11-11 Daily, 0 l 17:59: Refill(s) [place] 00 Simvastatin 2017-11 Yes 20 mg, PO, Memoria 11-11 Daily, 0 l 17:59: Refill(s) [place] 00 3 ML 2017-11 Yes 600 mg, 0 Memoria Insulin 11-11 Refill(s) l Lispro 100 17:59: [place] UNT/ML Pen 00 Injector [Humalog] Ondansetron 2017-11 Yes 8 mg, PO, M emoria 11-11 Q8H, PRN l 17:59: nausea, 0 [place] 00 Refill(s) Reglan 2017-11 No 10 mg, PO, Memor ia 11-11 BID, 0 l 17:59: Refill(s) [place] 00 Vital Signs Vital Name Observation Time Observation Value Comments Source Systolic (mm Hg) 2020-03-16 14:30:00 Gabe rial Jeremias Diastolic (mm Hg) 2020-03-16 14:30:00 [facility] orial Jeremias Heart Rate 2020-03-16 14:30:00 [facility] [place] Respitory Rate 2020-03-16 14:30:00 Memori al Jeremias Temperature Oral (F) 2020-03-16 14:30:00 98.2 F [facility] Height 2020-03-16 14:30:00 177.8 cm [facility] [place] Weight 2020-03-16 14:30:00 [facility] [place] BMI Calculated 2020-03-16 14:30:00 Memori al [place] Systolic (mm Hg) 2019-12-17 17:47:00 Gabe rial [place] Diastolic (mm Hg) 2019-12-17 17:47:00 Mem orial [place] Heart Rate 2019-12-17 17:47:00 [facility] Respitory Rate 2019-12-17 17:47:00 [facility] [place] Height 2019-12-17 17:47:00 170.18 cm [facility] [place] Weight 2019-12-17 17:47:00 [facility] BMI Calculated 2019-12-17 17:47:00 Memori al [place] Systolic (mm Hg) 2019-11-13 14:55:00 Gabe rial [place] Diastolic (mm Hg) 2019-11-13 14:55:00 Mem orial [place] Heart Rate 2019-11-13 14:55:00 [facility] [place] Respitory Rate 2019-11-13 14:55:00 [facility] [place] Height 2019-11-13 14:55:00 170.18 cm [facility] Weight 2019-11-13 14:55:00 [facility] BMI Calculated 2019-11-13 14:55:00 [facility] Respitory Rate 2019-07-06 20:00:00 Mem[facility] al [place] Systolic (mm Hg) 2019-07-06 20:00:00 Gabe rial Jeremias Diastolic (mm Hg) 2019-07-06 20:00:00 Mem orial [place] Respitory Rate 2019-07-06 19:00:00 Mem[facility] al [place] Systolic (mm Hg) 2019-07-06 19:00:00 Gabe rial [place] Diastolic (mm Hg) 2019-07-06 19:00:00 Mem orial Jerem[place] Respitory Rate 2019-07-06 18:00:00 Mem[facility] al [place] Systolic (mm Hg) 2019-07-06 18:00:00 Gabe rial [place] Diastolic (mm Hg) 2019-07-06 18:00:00 Mem orial [place] Temperature Oral (F) 2019-07-06 17:00:00 98.4 F [facility] [place] Temperature Oral (F) 2019-07-06 13:00:00 98.6 F [facility] [place] Temperature Oral (F) 2019-07-06 09:00:00 98.1 F [facility] Height 2019-07-04 22:35:00 175.26 cm [facility] Weight 2019-07-04 22:35:00 [facility] BMI Calculated 2019-07-04 22:35:00 [facility] [place] Respitory Rate 2019-07-02 20:00:00 [facility] al [place] Systolic (mm Hg) 2019-07-02 20:00:00 Gabe rial [place] Diastolic (mm Hg) 2019-07-02 20:00:00 Mem orial [place] Respitory Rate 2019-07-02 19:00:00 Memori al [place] Systolic (mm Hg) 2019-07-02 19:00:00 Gabe rial Jeremias Diastolic (mm Hg) 2019-07-02 19:00:00 Mem orial [place] Respitory Rate 2019-07-02 17:00:00 Memori al [place] Systolic (mm Hg) 2019-07-02 17:00:00 Gabe rial [place] Diastolic (mm Hg) 2019-07-02 17:00:00 Mem orial [place] Temperature Oral (F) 2019-07-02 17:00:00 98.6 F [facility] Temperature Oral (F) 2019-07-02 13:00:00 98.7 F [facility] [place] Height 2019-07-02 10:02:00 170.18 cm [facility] [place] Temperature Oral (F) 2019-07-02 09:00:00 99.2 F [facility] [place] Height 2019-07-01 18:14:00 170.18 cm [facility] [place] Height 2019-07-01 09:16:00 170.18 cm [facility] Heart Rate 2019-06-25 16:38:00 [facility] Heart Rate 2019-06-25 12:53:00 [facility] Heart Rate 2019-06-25 07:51:00 [facility] [place] Weight 2019-06-23 15:01:00 [facility] [place] BMI Calculated 2019-06-23 15:01:00 Mem[facility] al Jeremias BMI Calculated 2018-10-23 15:03:00 Mem[facility] al [place] Height 2018-10-23 15:03:00 177.8 cm [facility] Weight 2018-10-23 15:03:00 [facility] Systolic (mm Hg) 2018-10-23 15:03:00 Gabe rial Jeremias Diastolic (mm Hg) 2018-10-23 15:03:00 Mem orial [facility] Heart Rate 2018-10-23 15:03:00 [facility] BMI Calculated 2018-10-09 19:30:00 [facility] [place] Weight 2018-10-09 19:30:00 [facility] Height 2018-10-09 19:30:00 177.8 cm [facility] [place] Respitory Rate 2018-10-09 19:30:00 Memori al [place] Heart Rate 2018-10-09 19:30:00 [facility] Systolic (mm Hg) 2018-10-09 19:30:00 Gabe rial [place] Diastolic (mm Hg) 2018-10-09 19:30:00 Mem orial Jeremias BMI Calculated 2018-09-11 16:37:00 Mem[facility] al [place] Weight 2018-09-11 16:37:00 [facility] [place] Heart Rate 2018-09-11 16:37:00 [facility] Height 2018-09-11 16:37:00 177.8 cm [facility] [place] Systolic (mm Hg) 2018-09-11 16:37:00 Gabe rial Jeremias Diastolic (mm Hg) 2018-09-11 16:37:00 Mem orial Jeremias Procedures Procedure Date / Time Performed Performing Clinician Amando pratima Kyphoplasty of fracture 2013-06-22 05:00:00 Gabe riayuly Jeremias of lumbar spine using computed tomography (CT) guidance Bypass / graft of vein 2008-06-22 05:00:00 Randi joseph Jeremias Arthroplasty of 1995-06-22 05:00:00 [facility] Her bruno knee<sup>1</sup> Discectomy 1986-06-22 05:00:00 [facility] Her bruno 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 Arthroscopy of knee 1964-06-22 05:00:00 [facility] Jeremias joint<sup>2</sup> Appendectomy [facility] [place] Encounters Start End Encounter Admission Attending Care Care Encounter Source Date/Time Date/Time Type Type Clinicians Facility Department ID 2019-07-04 Inpatient U [facility]SE PUL [id number] MH 17:33:00 [facility] 2020-09-24 2020-09-24 Emergency Pradeep [facility] [id number] 10:40:00 12:22:00 Jyotsna [place] [id number] Maurice [id number] [place] [id number] 2020-07-19 2020-07-19 Outpatient Nathen MHMISCHER MHMISCHER [id number] 10:00:00 10:00:00 Fede 00 Chuckie 2020-07-19 2020-07-19 Outpatient Ntahen MHMISCHER MHMISCHER [id number] 10:00:00 10:00:00 Fede 10 Chuckie 2020-03-16 2020-03-16 Outpatient Nathen MHMISCHER MHMISCHER [id number] 09:15:00 23:59:59 Fede 09 Chuckie 2019-12-17 2019-12-17 Outpatient Nathen MHMISCHER MHMISCHER [id number] 11:45:00 23:59:59 Fede 08 Chuckie 2019-11-13 2019-11-13 Outpatient Nathen MHMISCHER MHMISCHER [id number] 08:45:00 23:59:59 Fede 07 Chuckie 2019-07-04 2019-07-06 Outpatient Isak, MHSE MHSE [id number] 17:33:00 16:35:00 Timoteo Hendrix 2019-06-24 2019-07-02 Outpatient Marisa, MHSE MHSE [id number] 13:43:00 15:37:00 Delores Kamila Abel 2019-06-24 2019-06-23 Inpatient U MHSE MED [id number] MH 13:43:00 15:31:00 [facility] 2019-02-26 2019-02-26 Outpatient Nathen, MHMISCHER MHMISCHER [id number] 09:45:00 09:45:00 Fede 05 Chuckie 2018-11-20 2018-11-20 Outpatient Nathen MHMISCHER MHMISCHER [id number] 13:15:00 13:15:00 Fede 03 Chuckie 2018-10-30 2018-10-31 Outpatient MHMISCHER MHMISCHER [id number] 14:29:00 23:59:59 2018-10-23 2018-10-23 Outpatient JOCELYN SenaSCHER MHMELODYSCHER [id number] 09:30:00 23:59:59 Fede 04 Chuckie 2018-10-09 2018-10-09 Outpatient JOCELYN SenaSCHER JOCELYNSCHER [id number] 13:30:00 23:59:59 Fede 02 Chuckie 2018-09-26 2018-09-27 Outpatient MHMISCHER MHMISCHER [id number] 12:14:00 23:59:59 2018-09-25 2018-09-26 Outpatient MHMISCHER MHMISCHER [id number] 11:25:00 23:59:59 2018-09-16 2018-09-16 Outpatient JOCELYN SenaSCHER MHMELODYSCHER [id number] 15:00:00 23:59:59 Fede Chuckie 2018-09-11 2018-09-11 Outpatient JOCELYN SenaSCHER MHMELODYSCHER [id number] 11:30:00 23:59:59 Fede 00 Chuckie Results Test Description Test Time Test Comments Results Result Comments Source CHEM PANEL 2019-07-06 2.1 [facility] 09:16:00 CHEM PANEL 2019-07-06 3.5 [facility] 09:16:00 CHEM PANEL 2019-07-06 152 [facility] 09:16:00 CHEM PANEL 2019-07-06 29 [facility] 09:16:00 CHEM PANEL 2019-07-06 1.12 [facility] [place] [facility] 09:16:00 CHEM PANEL 2019-07-06 144 [facility] [place] [facility] 09:16:00 CHEM PANEL 2019-07-06 3.9 [facility] [place] nn 09:16:00 CHEM PANEL 2019-07-06 109 [facility] [place] nn 09:16:00 CHEM PANEL 2019-07-06 32 [facility] [place] nn 09:16:00 CHEM PANEL 2019-07-06 7.6 [facility] [place] nn 09:16:00 CHEM PANEL 2019-07-06 6.9 [facility] [place] [facility] 09:16:00 CHEM PANEL 2019-07-06 63 [facility] [place] [facility] 09:16:00 CHEM PANEL 2019-07-06 7.6 [facility] [place] [facility] 09:16:00 HEMATOLOGY 2019-07-06 7.2 [facility] [place] [facility] 09:16:00 HEMATOLOGY 2019-07-06 2.93 [facility] [place] [facility] 09:16:00 HEMATOLOGY 2019-07-06 9.4 [facility] [place] [facility] 09:16:00 HEMATOLOGY 2019-07-06 28.1 [facility] [place] [facility] 09:16:00 HEMATOLOGY 2019-07-06 96.1 [facility] [place] nn 09:16:00 HEMATOLOGY 2019-07-06 09:16:00 Test Item Value Reference Range Interpretation Comme nts MCH (test code = MCH) 32.1 pg 27.0-31.0 [facility] MzdkbmaYTMUMXGSBT7672-44-11 09:16:0033.4[facility] HermannHEMATOLOGY 2019-07-06 09:16:0016.1[facility] HszcjpiTVKARTBNNI9991-68-31 09:16:41473Seqfoyej CpwvxpxJCLCMGBGTY1549-80-32 09:16:007.9[facility] HermannSTIMULATION STUDIES 2019-07-06 09:16:0010.8[facility]annBLOOD BANK [id number] 16:00:00 Negative (07/05/19 11:00 AM)[facility] [id number] 14:30:00 Product available 4(07/05/19 9:30 AM)[facility] HermannCHEM VAUNC5091-42-64 09:10:007.6[facility] HermannCHEM AFEBS5363-48-36 09:10:01232Dpdebjia HermannCHEM RDHLW6664-87-85 09:10:0045[facility] HermannCHEM YVNVC7597-38-77 09:10:001.69 [facility]annCHEM XAKTV6407-58-71 09:10:53997Cytvjqdk HermannCHEM PANEL 2019-07-05 09:10:003.7[facility] HermannCHEM DRTEM6916-00-81 09:10:99802Fcghratm HermannCHEM RPLGW7292-85-79 09:10:0032[facility] HermannCHEM SMNQB6687-61-11 09:10:007.6[facility] HermannCHEM ZIRUP8938-02-11 09:10:008.7[facility] HermannCHEM SFSVJ3334-27-51 09:10:0038[facility] HermannCHEM MZZIC0018-37-62 09:10:002.0 [facility]annCHEM PFRXE8222-08-69 09:10:003.7[facility] HermannHEMATOLOGY 2019-07-05 09:10:008.6[facility] FmyqdxrKAYEGYGOQX5468-74-09 09:10:002.48[facility] WvptgdhLNGAMIIYUI8627-74-39 09:10:008.0[facility] ZapcpbdWZTMYSZNUH3773-14-22 09:10:0024.1[facility] BxkubavWOEHHPIYHB8915-96-78 09:10:0097.1[facility] [place] UPBJTWWCKE5526-60-88 09:10:00 Test Item Value Reference Range Interpretation Comments MCH (test code = MCH) 32.2 pg 27.0-31.0 [facility] SijjyiyDNKVUTIGSG7392-07-08 09:10:0033.2[facility] HermannHEMATOLOGY 2019-07-05 09:10:0016.5[facility] XwvtqjyVBOWLIIBTX1486-10-67 09:10:18153Buzmwqci YgajqvoAOSEPAYQLA8024-85-55 09:10:008.5[facility] HermannCARDIAC HBWLXAI5861-19-40 00:33:000.07[facility] HermannCARDIAC IEXXXUV3449-21-16 00:33:91059Hugihtfi HermannCHEM YKJNX3201-05-59 00:33:001.9[facility] HermannCHEM RMHXM3469-69-56 00:33:003.4[facility] XvdofruKGORSMROWXAF2972-74-95 00:33:009.8[facility] HFNQIVTYNEQQ1727-82-68 00:33:00 Test Item Value Reference Range Interpretation Comments B/C Ratio (test code = B/C Ratio) 24 1 6-25 [facility] XpbpuwfMICNFPRSQUMC8268-81-50 00:33:002.3[facility] HermannELECTROLYTES 2019-07-05 00:33:00 Test Item Value Reference Range Interpretation Comments A/G Ratio (test code = A/G Ratio) 1.2 1 0.7-1.6 [facility] MvqggkhZBITRJOZWCTG5132-74-54 00:33:21829Cseqgyrv HermannELECTROLYTES 2019-07-05 00:33:0046[facility] FhjxtrmPALNOWEZJLWF9181-79-93 00:33:001.90[facility] VwpqlkxYRRRWLAXIKQF8241-67-62 00:33:05649Yazvsphf BigslnjAYEGWGPWDGWD8522-21-77 00:33:003.8[facility] NhdxpojOAFRILCBXWTV8926-13-23 00:33:75657Nletyzwx Jeremias YIONXHSNOFGU7393-22-26 00:33:0032[facility] QfukhdyLEIAQLUNFEZW5423-07-77 00:33:00 5.1[facility] EukxofjNIGMOBFERXOP0268-56-83 00:33:002.8[facility] [place] YFHMVAHWBVNM8338-98-35 00:33:0021[facility] TnhhmmtPPADJMHLYVGY8415-08-37 00:33:00 23[facility] JkmgkdkTRTKLLHBJDQY9461-80-06 00:33:61892Yxfwczht HermannELECTROLYTES 2019-07-05 00:33:001.6[facility] CmpojkfRIWPYRLOLTBT1561-81-94 00:33:0033[facility] PiiuygsIOSNEJKYHQ5765-21-91 00:33:00 Test Item Value Reference Range Interpretation Comments INR (test code = INR) 1.16 1 0.85-1.17 [facility] EhufmuoYUGZUVPKFT8409-58-08 00:33:00 Test Item Value Reference Range Interpretation Comments PT (test code = PT) 14.6 s 12.0-14.7 [facility] KkdblzuPKJIQUOMDO1109-52-99 00:33:00 Test Item Value Reference Range Interpretation Comments PTT (test code = PTT) 33.0 s 22.9-35.8 [facility] EtzfcqiFTWIBNGNGQ3034-21-58 00:33:0011.0[facility] HermannHEMATOLOGY 2019-07-05 00:33:002.89[facility] XqczmpqLIKEVSQMJZ6758-69-95 00:33:009.3[facility] JddyufcSUAIOAFXGO0365-21-33 00:33:0027.9[facility] TvxxaxxRUNBWMKVFT8536-56-92 00:33:0096.6[facility] MnqlhiqIHDTIUDVUB4529-42-23 00:33:00 Test Item Value Reference Range Interpretation Comments MCH (test code = MCH) 32.2 pg 27.0-31.0 [facility] QaiohwfMMLNTBNYWM4781-80-63 00:33:0033.3[facility] HermannHEMATOLOGY 2019-07-05 00:33:0016.9[facility] FrfcyxmCSUOYCOIEY9398-06-64 00:33:26164Exjnkzhx JkcaproMNCIBUTOYE9280-46-39 00:33:008.4[facility] TbuovouJJNAIKSQWD1406-25-08 00:33:0066.6[facility] RrklscqILCNUUOCHB9459-42-41 00:33:0012.6[facility] [place] DJYSXGUPEV3877-44-51 00:33:0017.8[facility] ZrakrfpVWTAAKHITO3120-78-31 00:33:00 2.4[facility] QibzwgeRDMAFOUPQT7104-43-24 00:33:000.6[facility] HermannHEMATOLOGY 2019-07-05 00:33:007.4[facility] BhbazhrDVMZJNUFBZ7698-70-95 00:33:001.4[facility] FrbphdhSWKTHADOKO2767-39-11 00:33:002.0[facility] NdbbgixLJJTLQDVCE2345-45-97 00:33:000.3[facility] DutqlbtDFZOWJWTIS4805-14-01 00:33:000.1[facility] HermannURINE STSB5561-23-74 23:37:0026[facility] HermannURINE TFCO2465-60-39 23:37:75146.00 [facility] HermannCHEM AAHBJ6747-35-13 16:11:28332Cfbpdsxe HermannCHEM PANEL 2019-07-02 16:11:0024[facility] HermannCHEM GMWWO3269-11-27 16:11:001.31[facility] HermannCHEM MBGFV0315-73-48 16:11:13471Fqfvwyis HermannCHEM OECSH6835-22-13 16:11:004.1[facility] HermannCHEM MJTIK3769-06-05 16:11:21009Meayrkml HermannCHEM FUUEH1432-13-47 16:11:0031[facility] HermannCHEM LSDIQ0412-16-67 16:11:0010.1 [facility] HermannCHEM GRMBV6465-47-39 16:11:008.2[facility] HermannCHEM PANEL 2019-07-02 16:11:0052[facility] HermannCHEM TARVT0169-47-37 19:11:0092[facility] HermannCHEM QTHUF3299-40-75 19:11:0021[facility] HermannCHEM IUAOD9650-39-39 19:11:001.45[facility] HermannCHEM UUPTX1211-72-22 19:11:86184Lhvmixdp HermannCHEM PEQBP9135-39-79 19:11:003.6[facility] HermannCHEM RGRXW0831-74-86 19:11:47203 [facility] HermannCHEM KRZKJ2597-58-36 19:11:0030[facility] HermannCHEM PANEL 2019-07-01 19:11:008.1[facility] HermannCHEM FLLQA3601-39-54 19:11:0010.6[facility] HermannCHEM SJYRO4320-26-64 19:11:0046[facility] HermannCARDIAC BKAAEGR8163-93-33 16:38:03887Xmgghxla HermannCHEM YBQZW2823-09-81 16:38:01030Pjcgxcsf HermannCHEM MGXOS7213-19-40 16:38:0016[facility] HermannCHEM VUTLK6969-24-64 16:38:001.12 [facility] HermannCHEM THLHC9510-11-27 16:38:98609Qlsclpwl HermannCHEM PANEL 2019-06-30 16:38:003.9[facility]annCHEM QFXSR3837-28-53 16:38:86291Qsvmyfyf HermannCHEM GYPJY5949-64-01 16:38:0031[facility]annCHEM LFVOL3075-26-57 16:38:008.1[facility]annCHEM RHVOT7266-14-23 16:38:005.0[facility]annCHEM TWHZE8056-65-69 16:38:002.6[facility]annCHEM LTDSC7177-98-67 16:38:0029 [facility]annCHEM MDHYG8523-01-49 16:38:0011[facility] HermannCHEM PANEL 2019-06-30 16:38:0092[facility] HermannCHEM FZYUC4134-84-00 16:38:001.7[facility]annCHEM QEVJY3094-69-45 16:38:008.9[facility]annCHEM BECOM7680-59-99 16:38:00 Test Item Value Reference Range Interpretation Comments B/C Ratio (test code = B/C Ratio) 14 1 6-25 [facility]annCHE[facility] MESPY5943-36-29 16:38:002.4[facility] HermannCHEM PANEL 2019-06-30 16:38:00 Test Item Value Reference Range Interpretation Comments A/G Ratio (test code = A/G Ratio) 1.1 1 0.7-1.6 [facility]annCHE[facility] YIWDU2250-91-75 16:38:0063[facility]annHEMATOLOGY 2019-06-30 16:38:009.0[facility] MirvpkqBLRNXVRYUK5434-50-79 16:38:002.65[facility] SilotxqVWQYVBNBKH7351-68-18 16:38:008.5[facility] ShpsogxAZJFJSXKBE0668-91-98 16:38:0024.6[facility] DewexzkOZSKOYGIKG3591-42-25 16:38:0092.6[facility] [place] NDLAZZWUSP8540-97-14 16:38:00 Test Item Value Reference Range Interpretation Comments MCH (test code = MCH) 32.2 pg 27.0-31.0 [facility] WpnsrlxFARVKYKITI1437-69-30 16:38:0034.7[facility] HermannHEMATOLOGY 2019-06-30 16:38:0014.8[facility] PrcokhzQKZVDBLYMJ3821-71-50 16:38:39874Sflmocag QkhfyngDDSEMKFBKB8340-78-75 16:38:008.5[facility] TbeqzpiZTKQNMXWZD4312-46-04 18:44:009.6[facility] ZmoluyaKNTUCNXFVI8492-38-26 18:44:003.10[facility] PBWBSIHTWC2209-13-74 18:44:0010.0[facility] VwwnnqiIMVMWQYGJT6689-22-18 18:44:00 29.0[facility] PjqdzceQKRQNZNIJL6489-88-23 18:44:0093.5[facility]annHEMATOLOGY 2019-06-29 18:44:00 Test Item Value Reference Range Interpretation Comments MCH (test code = MCH) 32.1 pg 27.0-31.0 [facility] JvhwhmjEQMLQBVWYS9376-21-32 18:44:0034.4[facility]annHEMATOLOGY 2019-06-29 18:44:0014.9[facility] RwnlcnmQCMDYTDJAW3600-30-61 18:44:75660Pmaidcxe GwvlonbBACQFXZVEM6214-66-33 18:44:008.6[facility] SlkzkvoGARIGZIFGI8521-30-73 18:44:0067.8[facility] WtmtypbFQPPXZVZGZ9750-93-30 18:44:0014.0[facility] KNZMIFHZVT9349-86-86 18:44:0015.7[facility] UlqkqrrKBEJCOKKDQ2859-72-11 18:44:00 2.2[facility] OqtddooYHXUGURFMM5267-62-42 18:44:000.3[facility]annHEMATOLOGY 2019-06-29 18:44:006.5[facility] SfhlmrcZMTAACUHWC3396-60-09 18:44:001.3[facility] VcgusfpSUIRMLCWKY8186-46-48 18:44:001.5[facility] PrdrsfqAXDVAISWHK0820-30-94 18:44:000.2[facility] HermannCHEM CKMVC1552-44-45 10:37:002.4[facility] HermannCHEM NKDJB2667-30-06 10:37:001.5[facility] AjlvtaaSKMFJRSBZE0944-49-20 10:37:0061.5 [facility] ElleohgIYIFLVFGXD3328-82-98 10:37:0018.4[facility]annHEMATOLOGY 2019-06-29 10:37:0017.5[facility] LlmuyzsRMYNTHWHWI1496-10-77 10:37:002.2[facility] VdhpqwyGRYZTPMHQE5672-75-17 10:37:000.4[facility] KleliepPBFQKWEYCL4924-65-15 10:37:005.5[facility] SgrrzqtAWIXKHOWLX8597-92-80 10:37:001.7[facility] NMJZYCUEQH6455-30-35 10:37:001.6[facility] DsdcwflEQNTVILQBY5591-32-29 10:37:000.2 [facility] YjrpivcXGABNONIEF8315-85-30 10:37:009.0[facility]annHEMATOLOGY 2019-06-29 10:37:002.54[facility] RpxoeftXKTZBONJHR0243-84-38 10:37:008.2[facility] WaokqbaZETIGCSUCF5802-20-70 10:37:0023.3[facility] GuvkgjpSUSPBNQKQM7674-04-67 10:37:0091.6[facility] TenucxpTWESMZFKEM6516-90-46 10:37:00 Test Item Value Reference Range Interpretation Comments MCH (test code = MCH) 32.1 pg 27.0-31.0 [facility] SsjfnqxKFKJQLAOQY1844-92-66 10:37:0035.1[facility] 2019-06-29 10:37:0014.9[facility] BkvbifeEOQTQZXGZI7520-88-57 10:37:98055Wsdoozqe WtzvjywYXLTJBHODT8162-44-92 10:37:008.0[facility] RESULTS 2019-06-28 20:52:00Product available (06/28/19 3:52 PM)[facility] JWEPBOZ0269-26-12 20:11:00Product available 4(06/28/19 3:11 PM)[facility] [id number] 13:27:00Negative (06/28/19 8:27 AM)[facility] B[facility] B[facility] UFMUINO9514-36-55 13:05:00Product available 5(06/28/19 8:05 AM) [facility] HATGU0111-91-47 10:38:002.0[facility]annCHEM PANEL 2019-06-28 10:38:002.6[facility] OztjuvwLLXSULJGUO9602-90-66 10:38:0070.8[facility] ZwalzfrTOYVSZAJEZ7224-65-96 10:38:0013.5[facility] NzdvoirJUBNLOMGNO3146-02-45 10:38:0015.1[facility] VbfbpzeDESOPJIJSQ5974-98-40 10:38:000.5[facility] VZHFOAKJFU8099-61-97 10:38:000.1[facility] KxqrbevHSNMACTFMR9124-33-99 10:38:009.3 [facility] YlebemuRGPIQJEJCU5981-68-74 10:38:001.8[facility]annHEMATOLOGY 2019-06-28 10:38:002.0[facility] LbsmlryGCSEMNHXOK0344-64-91 10:38:000.1[facility]annCHEM OCYAR6228-37-31 23:14:002.2[facility]annCHEM IAEOO0815-93-46 23:14:003.3[facility]annCARDIAC QDRNXCJ0997-82-86 23:30:000.03[facility] HermannPARATHYROID NNJSHMU1712-12-42 19:47:001.08[facility]annPARATHYROID GFQKKTH4929-77-03 19:47:001.10[facility] XKFCIZR5431-65-15 16:13:00Negative (06/23/19 11:13 AM)[facility]DtyguwnUBJXWSJFBH5703-43-84 16:13:00 Test Item Value Reference Range Interpretation Comments INR (test code = INR) 1.17 1 0.85-1.17 [facility] TempleSjqebltBCKHLJJDTU5777-65-52 16:13:00 Test Item Value Reference Range Interpretation Comments PT (test code = PT) 14.7 s 12.0-14.7 [facility]KKL1357-02-63 16:13:00 Test Item Value Reference Range Interpretation Comments PTT (test code = PTT) 30.8 s 22.9-35.8 [facility] TempleWwotuofKZFWLDKZYM6664-01-88 16:13:000.1[facility]
--- OUTSIDE RECORDS SUMMARY | 2020-09-29 07:32 | XMS REPORT | Summary of Care ---
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 Reason for Visit Reason Comments Refill Request Encounter Details Date Type Department Care Team Description 09/22/2020 Refill [facility] Family Medicine Barrington Joseph MD Refill Request - [address] [place] [address] [place] [phone] Allergies Active Allergy Reactions Severity Noted Date Comments Morphine Nausea and/or Vomiting High 10/21/2009 documented as of this encounter (statuses as of 09/22/2020) Medications Medication Sig Dispensed Refills Start End Status Date Date Insulin Syringe-Needle inject 35 100 Syringe 0 10/08/20 Active U-100 (SURE COMFORT Units under 16 INSULIN SYRINGE) 1 mL 31 the skin gauge x 5/16 Syrg daily. lactulose 10 gram/15 mL Take 15 mL by 900 mL 2 05/09/20 Active (15 mL) Soln mouth 2 (two) 18 times daily. XCYCCAKAENMWE-CGPG-QYVUR TAKE ONE 50 capsule 5 09/09/20 Active BITAL per capsule CAPSULE BY 18 MOUTH EVERY FOUR HOURS NEEDED FOR PAIN aspirin 81 mg chewable Take 1 tablet 30 tablet 0 04/26/20 Active tabletIndications: COPD by mouth 19 (chronic obstructive daily. pulmonary disease) with acute bronchitis silver sulfADIAZINE Apply to 50 g 1 07/23/20 Active (THERMAZENE) 1 % area(s) 2 19 creamIndications: Ulcer (two) times of left lower extremity daily. with fat layer exposed tiZANidine 4 mg Take 1 tablet 60 tablet 2 01/05/20 Active tabletIndications: by mouth 20 Primary osteoarthritis every 8 involving multiple (eight) hours joints as needed for Pain (scale 4-6). blood sugar diagnostic TEST THREE 100 Strip 2 03/01/20 Active (TRUE METRIX GLUCOSE TIMES DAILY 20 TEST STRIP) AND NEEDED stripIndications: Type 2 diabetes mellitus with diabetic neuropathy, with long-term current use of insulin BUTALBITAL-ACETAMINOPHEN TAKE 1 TABLET 50 tablet 3 04/20/20 Active -CAFF 50-325-40 mg BY MOUTH 20 tabletIndications: EVERY FOUR Primary osteoarthritis HOURS involving multiple NEEDED FOR joints PAIN ondansetron (ZOFRAN ODT) Take 1 tablet 60 tablet 1 04/25/20 Active 8 mg disintegrating by mouth 20 tabletIndications: every 8 Vomiting, intractability (eight) hours of vomiting not as needed for specified, presence of Nausea and nausea not specified, Vomiting unspecified vomiting (N/V). type metoprolol succinate XL TAKE 1/2 45 tablet 5 04/25/20 Active 25 mg 24 hr TABLET BY 20 tabletIndications: PVD MOUTH EVERY (peripheral vascular DAY disease) METOCLOPRAMIDE HCL 10 mg TAKE 1 TABLET 120 tablet 1 04/25/20 Active tablet BY MOUTH 20 BEFORE MEALS AND AT BEDTIME. simvastatin 20 mg Take 1 tablet 90 tablet 1 06/20/20 Active tabletIndications: by mouth 20 Hypercholesterolemia daily. gabapentin 600 mg Take 1 tablet 90 tablet 1 06/20/20 Active tabletIndications: by mouth 3 20 Primary osteoarthritis (three) times involving multiple daily. joints fluticasone Inhale 1 Puff 60 Each 06/20/20 Acti ve propion-salmeterol every 12 20 250-50 mcg/dose (twelve) inhalation hours. diskIndications: CARCAMO (dyspnea on exertion) ramelteon 8 mg Take 1 tablet 30 tablet 5 06/20/20 A ctive tabletIndications: by mouth at 20 Insomnia, unspecified bedtime. type traZODone 100 mg Take 1 tablet 30 tablet 5 08/11/20 Active tabletIndications: by mouth at 20 Insomnia, unspecified bedtime. type ipratropium-albuteroL Inhale 3 mL 120 Vial 0 08/11/20 Active 0.5 mg-3 mg(2.5 mg every 4 20 base)/3 mL nebulizer (four) hours solutionIndications: as needed for COPD (chronic Wheezing. obstructive pulmonary disease) with acute bronchitis albuterol 90 INHALE 2 8.5 g 5 08/11/20 Active mcg/actuation PUFFS BY 20 inhalerIndications: CARCAMO MOUTH EVERY 6 (dyspnea on exertion) HOURS NEEDED FOR SHORTNESS OF BREATH collagenase 250 Apply to 30 g 1 09/06/20 Acti ve unit/gram affected 20 ointmentIndications: area(s) Ulcer of left lower daily. Left extremity with fat layer leg wound exposed mupirocin 2 % Apply to 22 g 0 09/06/20 Active ointmentIndications: area(s) 2 20 Open wound of left knee, (two) times leg, and ankle with daily. Left complication, subsequent leg wound encounter furosemide 40 mg Take 1 tablet 60 tablet 0 09/06/20 Active tabletIndications: Acute by mouth 20 on chronic congestive every morning heart failure, and evening. unspecified heart failure type, Ulcer of left lower extremity with fat layer exposed oxyCODONE CR 80 mg 12 Take 1 tablet 90 tablet 0 09/14/20 Active hour tabletIndications: by mouth 3 20 chronic pain (three) times daily as needed for Pain. Indications: chronic pain mirtazapine 7.5 mg Take 1 tablet 30 tablet 1 09/19/20 Active tabletIndications: Type by mouth at 20 2 diabetes mellitus with bedtime. diabetic polyneuropathy, with long-term current use of insulin, Loss of appetite for more than 2 weeks HUMALOG MIX 75-25 INJECT 35 15 mL 1 09/22/20 Ac tive KWIKPEN 100 unit/mL UNITS IN THE 20 (75-25) MORNING AND injectionIndications: INJECT 25 Type 2 diabetes mellitus UNITS IN THE with diabetic EVENING neuropathy, without long-term current use of insulin HUMALOG MIX 75-25 INJECT 35 15 mL 2 08/26/20 Di scontinued KWIKPEN 100 unit/mL UNITS IN THE 19 020 (75-25) injection MORNING AND INJECT 25 UNITS IN THE EVENING documented as of this encounter (statuses as of 09/22/2020) Active Problems Problem Noted Date Acute on chronic diastolic congestive heart failure TIA (transient ischemic attack) 09/05/2020 Nonrheumatic aortic valve stenosis 09/05/2020 CARCAMO (dyspnea on exertion) 04/26/2019 Chronic atrial fibrillation 04/26/2019 Pneumonia 04/23/2019 Intractable vomiting 04/29/2018 Elevated troponin 10/20/2017 Coronary artery disease involving [place] coronary natalie ry of [place] heart 10/20/2017 without angina pectoris Vomiting 10/20/2017 Stage 3 chronic kidney disease 10/20/2017 Obesity (BMI 30-39.9) 11/06/2016 JUAREZ (generalized anxiety disorder) 09/28/2015 Insomnia 09/28/2015 Sleep apnea 09/28/2015 Hypercholesterolemia 09/28/2015 Reflux esophagitis 09/28/2015 Type 2 diabetes mellitus with neurologic complication, without long-term 02/19/2012 current use of insulin Diabetes mellitus 10/21/2009 Essential hypertension, benign 10/21/2009 Osteoarthritis of multiple joints 10/21/2009 HLD (hyperlipidemia) 10/21/2009 Overview: ICD10 Diagnosis 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 ACRMEN (obstructive sleep apnea) 10/21/2009 documented as of this encounter (statuses as of 09/22/2020) Immunizations Name Administration Dates Next Due Influenza Virus Vaccine 08/08/2009 Influenza Virus Vaccine - Whole 12/18/2001 TDAP 11/24/2015 Td 02/05/2018 Tetanus/Diptheria 02/05/2018 documented as of this encounter Social History Tobacco Use Types Packs/Day Years Used Date Former Smoker Cigarettes 40 Smokeless Tobacco: Never Used Comments: stopped 3 weeks ago Alcohol Use Drinks/Week oz/Week Comments No 0 Standard drinks or equivalent 0.0 Education Answer Date Recorded What is the highest level of school Bachelor's degree (e.g., BA, AB, 09/05/2020 you have completed or the highest BS) degree you have received? Financial Resource Strain Answer Date Recorded How hard is it for you to pay for the very basics like Not h tom at all 09/05/2020 food, housing, medical care, and heating? Food Insecurity Answer Date Recorded Within the past 12 months, you worried that your food would Never true 09/05/2020 run out before you got money to buy more. Within the past 12 months, the food you bought just didn't N ever true 09/05/2020 last and you didn't have money to get more. Transportation Needs Answer Date Recorded In the past 12 months, has lack of transportation kept you f rom No 09/05/2020 medical appointments or from getting medications? In the past 12 months, has lack of transportation kept you f rom No 09/05/2020 meetings, work, or getting things needed for daily living? 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 documented as of this encounter Last Filed Vital Signs Not on filedocumented in this encounter Miscellaneous Notes Telephone Encounter - Alma Rosa Melara LVN - 09/22/2020 10:31 AM CST HUMALOG MIX 75-25 KWIKPEN 100 unit/mL (75-25) injection [Pharmacy Med Name: HUMALOG MIX INJ 75/25KWP] INJECT 35 UNITS IN THE MORNING AND INJECT 25 UNITS IN THE EVENING Dispense: 15 mL Refills: 1 [facility] Last Office Visit: 08/11/2020 Next Office Visit: none Last filled 08/26/2019 Please refill if appropriate documented in this encounter Plan of Treatment Date Type Specialty Care Team Description 10/10/2020 Office Visit Family Medicine Barrington Merrill MD [address] [place] [phone] 11/21/2020 Office Visit Neurology Frandy Presley MD [address] [place] [address]. [place], [place] [phone] Health Maintenance Due Date Last Done Comments EYE EXAM 1951 FOOT EXAM 1959 Zoster Recombinant Vaccine 1991 (SHINGRIX) (1 of 2) Medicare Wellness Visit 2006 PNEUMOCOCCAL VACCINES 65+ (1 of 1 2006 - PPSV23) LUNG CANCER SCREEN: Recommended 04/23/2020 04/23/2019 for age 55-80 with 30 + pack year history INFLUENZA VACCINE (#1) 2020 08/08/2009, 12/18/2001 HgA1C 01/31/2021 08/03/2020, 05/02/2020, 01/28/2020, Additional history exists LDL-C 08/03/2021 08/03/2020, 10/22/2019, 10/04/2018 URINE MICROALBUMIN 08/03/2021 08/03/2020, 01/28/2020, 10/22/2019, Additional history exists Depression Screening 08/11/2021 08/11/2020 CREATININE (SERUM) 09/06/2021 09/06/2020, 09/05/2020, 08/03/2020, Additional history exists DTaP,Tdap,and Td Vaccines (3 - Td) 02/06/2028 02/05/2018, 0 11/24/2015 documented as of this encounter Implants Implanted Type Area Rf Design Engineer Device Shelf Model / Identifier Expiration Serial / Lot Date Lens LENS Right: Eye Mello 08/10/2020 [id number] / Implanted: Qty: 1 on 12/14/2015 by Nikhil Mendoza MD at [facility] 1 [id number] / [id number] Acrysof Iq LENS Left: Eye Mello 07/11/2020 [id number] / Implanted: Qty: 1 on 01/11/2016 by Nikhil Mendoza MD at [facility] 1 [id number] / [id number] Sutureless Pump Connector Revision Kit Pump Right: Medtronic [id number] / Implanted: Qty: 1 on 01/14/2017 by Leonel Mccollum MD at [facility] Abdomen [id number] / [id number] Synchromed Ii Programmable Pump Pump Right: Medtronic 05/24/2018 [id number] / Implanted: Qty: 1 on 01/14/2017 by Leonel Mccollum MD at [facility] Abdomen N [id number] / [id number] documented as of this encounter Results Not on filedocumented in this encounter Visit Diagnoses Diagnosis Type 2 diabetes mellitus with diabetic n europathy, without long-term current use of insulin - Primary documented in this encounter Insurance Payer Benefit Plan / Subscriber ID Effective Phone Address [employer] Dates MEDICARE MEDICARE PART A [id number] 1998-Pres [phone] P. O. SHAINA X Medicare & B ent [phone] ANTONINO IZQUIERDO [phone] BCBS OF [place] [id number] 2017-Pres [phone] O [facility] ent [phone] [place] [address] documented as of this encounter Advance Directives Name Relationship Healthcare Agent Communication Relationship Stefany Baptiste Spouse Health Care Agent
--- OUTSIDE RECORDS SUMMARY | 2020-09-29 07:33 | XMS REPORT | Summary of Care ---
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 Reason for Visit Reason Comments Other Wound Auth/Cert Status Reason Specialty Diagnoses / Referred By Referred To Procedures Contact Contact Emergency Medicine Adc Em ergency Dept [address] [place] [phone] Fax: Encounter Details Date Type Department Care Team Description 09/24/2020 Emergency ADC-Emergency Jyotsna Fernández, PAC Infected open wound Department [address] [place] [address] DR (Primary Dx) [address] [place], [place] [address] [address] [phone] [place] [address] [phone] Allergies Active Allergy Reactions Severity Noted Date Comments Morphine Nausea and/or Vomiting High 10/21/2009 documented as of this encounter (statuses as of 09/24/2020) Medications Medication Sig Dispensed Refills Start Date End Date Status Insulin Syringe-Needle inject 35 100 Syringe 0 10/08/2016 Active U-100 (SURE COMFORT Units under INSULIN SYRINGE) 1 mL 31 the skin gauge x 03/26 Syrg daily. lactulose 10 gram/15 mL Take 15 mL by 900 mL 2 05/09/2018 Active (15 mL) Soln mouth 2 (two) times daily. [id number] TAKE ONE 50 capsule 5 09/09/2018 Active ITAL per capsule CAPSULE BY MOUTH EVERY FOUR HOURS NEEDED FOR PAIN aspirin 81 mg chewable Take 1 tablet 30 tablet 0 04/26/2019 Active tabletIndications: COPD by mouth (chronic obstructive daily. pulmonary disease) with acute bronchitis silver sulfADIAZINE Apply to 50 g 1 07/23/2019 Active (THERMAZENE) 1 % area(s) 2 creamIndications: Ulcer (two) times of left lower extremity daily. with fat layer exposed tiZANidine 4 mg Take 1 tablet 60 tablet 2 01/05/2020 Active tabletIndications: by mouth every Primary osteoarthritis 8 (eight) involving multiple joints hours as needed for Pain (scale 4-6). blood sugar diagnostic TEST THREE 100 Strip 2 03/01/2020 Active (TRUE METRIX GLUCOSE TEST TIMES DAILY STRIP) stripIndications: AND NEEDED Type 2 diabetes mellitus with diabetic neuropathy, with long-term current use of insulin BUTALBITAL-ACETAMINOPHEN- TAKE 1 TABLET 50 tablet 3 04/20/2020 Active CAFF 50-325-40 mg BY MOUTH EVERY tabletIndications: FOUR HOURS Primary osteoarthritis NEEDED FOR involving multiple joints PAIN ondansetron (ZOFRAN ODT) Take 1 tablet 60 tablet 1 04/25/2020 Active 8 mg disintegrating by mouth every tabletIndications: 8 (eight) Vomiting, intractability hours as of vomiting not needed for specified, presence of Nausea and nausea not specified, Vomiting unspecified vomiting type (N/V). metoprolol succinate XL TAKE 1/2 45 tablet 5 04/25/2020 Active 25 mg 24 hr TABLET BY tabletIndications: PVD MOUTH EVERY (peripheral vascular DAY disease) METOCLOPRAMIDE HCL 10 mg TAKE 1 TABLET 120 tablet 1 04/25/2020 Active tablet BY MOUTH BEFORE MEALS AND AT BEDTIME. simvastatin 20 mg Take 1 tablet 90 tablet 1 06/20/2020 Active tabletIndications: by mouth Hypercholesterolemia daily. gabapentin 600 mg Take 1 tablet 90 tablet 1 06/20/2020 Active tabletIndications: by mouth 3 Primary osteoarthritis (three) times involving multiple joints daily. fluticasone Inhale 1 Puff 60 Each 11 06/20/2020 Act quincy propion-salmeterol 250-50 every 12 mcg/dose inhalation (twelve) diskIndications: CARCAMO hours. (dyspnea on exertion) ramelteon 8 mg Take 1 tablet 30 tablet 5 06/20/2020 Active tabletIndications: by mouth at Insomnia, unspecified bedtime. type traZODone 100 mg Take 1 tablet 30 tablet 5 08/11/2020 Active tabletIndications: by mouth at Insomnia, unspecified bedtime. type ipratropium-albuteroL 0.5 Inhale 3 mL 120 Vial 0 08/11/2020 Active mg-3 mg(2.5 mg base)/3 mL every 4 (four) nebulizer hours as solutionIndications: COPD needed for (chronic obstructive Wheezing. pulmonary disease) with acute bronchitis albuterol 90 INHALE 2 PUFFS 8.5 g 5 08/11/2020 A ctive mcg/actuation BY MOUTH EVERY inhalerIndications: CARCAMO 6 HOURS (dyspnea on exertion) NEEDED FOR SHORTNESS OF BREATH collagenase 250 unit/gram Apply to 30 g 1 09/06/2020 Active ointmentIndications: affected Ulcer of left lower area(s) daily. extremity with fat layer Left leg wound exposed mupirocin 2 % Apply to 22 g 0 09/06/2020 Activ e ointmentIndications: Open area(s) 2 wound of left knee, leg, (two) times and ankle with daily. Left complication, subsequent leg wound encounter furosemide 40 mg Take 1 tablet 60 tablet 0 09/06/2020 Active tabletIndications: Acute by mouth every on chronic congestive morning and heart failure, evening. unspecified heart failure type, Ulcer of left lower extremity with fat layer exposed oxyCODONE CR 80 mg 12 Take 1 tablet 90 tablet 0 09/14/2020 Active hour tabletIndications: by mouth 3 chronic pain (three) times daily as needed for Pain. Indications: chronic pain mirtazapine 7.5 mg Take 1 tablet 30 tablet 1 09/19/2020 Active tabletIndications: Type 2 by mouth at diabetes mellitus with bedtime. diabetic polyneuropathy, with long-term current use of insulin, Loss of appetite for more than 2 weeks HUMALOG MIX 75-25 KWIKPEN INJECT 35 15 mL 1 09/22/2020 Active 100 unit/mL (75-25) UNITS IN THE injectionIndications: MORNING AND Type 2 diabetes mellitus INJECT 25 with diabetic neuropathy, UNITS IN THE without long-term current EVENING use of insulin clindamycin 150 mg Take 3 10 capsule 0 09/24/2020 Active capsuleIndications: capsules by Infected open wound mouth 3 (three) times daily. documented as of this encounter (statuses as of 09/24/2020) Active Problems Problem Noted Date Acute on chronic diastolic congestive heart failure TIA (transient ischemic attack) 09/05/2020 Nonrheumatic aortic valve stenosis 09/05/2020 CARCAMO (dyspnea on exertion) 04/26/2019 Chronic atrial fibrillation 04/26/2019 Pneumonia 04/23/2019 Intractable vomiting 04/29/2018 Elevated troponin 10/20/2017 Coronary artery disease involving sw[place]omish coronary natalie ry of sw[place] heart 10/20/2017 without angina pectoris Vomiting 10/20/2017 [...] HLD (hyperlipidemia) 10/21/2009 Overview: ICD10 Diagnosis 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 documented as of this encounter Last Filed Vital Signs Vital Sign Reading Time Taken Comments Blood Pressure 152/61 09/24/2020 11:00 AM INSTRUCTION LIBRARIAN Pulse 98 09/24/2020 11:00 AM INSTRUCTION LIBRARIAN Temperature 36.2 C (97.2 F) 09/24/2020 10:38 AM INSTRUCTION LIBRARIAN Respiratory Rate 20 09/24/2020 11:00 AM INSTRUCTION LIBRARIAN Oxygen Saturation 99% 09/24/2020 11:00 AM INSTRUCTION LIBRARIAN Inhaled Oxygen Concentration - - Weight 77.6 kg (171 lb) 09/24/2020 10:38 AM INSTRUCTION LIBRARIAN Height - - Body Mass Index 25.04 09/05/2020 2:15 PM CDT documented in this encounter Discharge Instructions Jyotsna Jones, PAC - 09/24/2020DIAGNOSIS 1. Leg wound, infected NO LIFE-THREATENING FINDINGS ON TODAY'S EXAM. PROCEDURES IN THE ER TODAY: none MEDICATIONS ADMINISTERED IN THE ER TODAY: none YOUR PRESCRIPTIONS AND [id number] MEDICATION RECOMMENDATIONS: Clindamycin 450mg SPECIAL CARE INSTRUCTIONS: 1. Keep wound clean and dry. Continue wound care that you have been instructed by the wound care specialists. 2. Watch for signs of worse infection such as redness, swelling, purulent discharge or increased pain and follow up with your PCP or return to the ER clinic for re-evaluation 3. Follow up with your rangeland management specialist next week for re-evaluation. 4. Take antibiotics as they are prescribed until you are finished with them. FOLLOW-UP RECOMMENDATIONS: RECOMMEND FOLLOW-UP WITH A PRIMARY CARE PROVIDER OR SPECIALIST IN 2-5 DAYS, ESPECIALLY IF NO IMPROVEMENT IN SYMPTOMS. TO FOLLOW-UP WITHIN THE [facility], TRY THESE OPTIONS (CLINIC APPOINTMENTS AVAILABLE ON [id number] BASIS): 1. SCHEDULE AN APPOINTMENT ONLINE AT WW[facility] 2. OR CALL THE [facility] ACCESS CENTER AT OR 3. OR CALL YOUR [facility] PHYSICIAN'S OFFICE DIRECTLY IF YOU ARE ALREADY AN ESTABLISHED [facility] PATIENT. OR, YOU MAY FOLLOW-UP WITH A PROVIDER OF YOUR CHOICE, SUCH : 1. A PHYSICIAN OF YOUR CHOICE 2. [facility], . LOCATIONS IN [facility] 3. [facility], [address] [place], [place]; [phone] RETURN TO ER FOR WORSENING OF SYMPTOMS. AttachmentsThe following attachments cannot be sent through Care Everywhere. Wound Infection, Recognizing and Treating (Sammarinese)documented in this encounter ED Notes Poppy Price RN - 09/24/2020 10:37 AM CSTPatient coming to the ER for a wound. Patient Has had the wound for a year, but is concerned it is becoming infected. Patient is worried the wound has " gangrene". documented in this encounter Miscellaneous Notes ED Nurse Note - Lily Ortez RN - 09/24/2020 11:17 AM CSTPt given printed and verbal discharge instructions regarding Infected open wound, encouraged hydration, Prescriptions provided Clindamycin Discussed ibuprofen and to take with food to avoid GI distress. Discussed antibiotic therapy and to take until all completed unless adverse reaction occurs - if occurs, discontinue medication and follow up with pcp/seek medical attention Pt verbalized understanding of instructions, pt awake alert oriented, resp reg unlabored, skin w/d, color appropriate for race, moves all ext well,pt encouraged to follow up with pcp in two days. Advised to seek medical attention for new/prolonged/worsening of symptoms, Symptoms any signs of infection or fever over 100.4 No adverse reaction to meds given in ER noted upon discharge PIV d'cd, dressing to site, catheter in tact. Awake, alert oriented, resp reg unlabored, skin w/d, pt leaving amb with steady gait, in no apparent distress, RUCTION LIBRARIAN documented in this encounter Plan of Treatment Date Type Specialty Care Team Description 10/10/2020 Office Visit Family Medicine Barrington Merrill MD [address] [place] [phone] 11/21/2020 Office Visit Neurology Frandy Presley MD [address] [place] [address]. [place], [place] [phone] Health Maintenance Due Date [...] of this encounter Implants Implanted Type Area Card Filer Device Shelf Model / Identifier Expiration Serial / Lot Date Lens LENS Right: Eye Mello 08/10/2020 [id number] / Implanted: Qty: 1 on 12/14/2015 by Nikhil Mendoza MD at [facility] 1 [id number] / [id number] 71 Acrysof Iq LENS Left: Eye Mello 07/11/2020 SN60WF / Implanted: Qty: 1 on 01/11/2016 by Nikhil Mendoza MD at [facility] 1 [id number] / [id number] 16 Sutureless Pump Connector Revision Kit Pump Right: Medtronic [id number] / Implanted: Qty: 1 on 01/14/2017 by Leonel Mccollum MD at [facility] Abdomen [id number] / [id number] Synchromed Ii Programmable Pump Pump Right: Medtronic 05/24/2018 8637-20 / Implanted: Qty: 1 on 01/14/2017 by Leonel Mccollum MD at [facility] Abdomen N [id number] / [id number] documented as of this encounter Procedures Procedure Name Priority Date/Time Associated Diagnosis Comme nts ASSIGNMENT OF BENEFITS Routine 09/24/2020 10:57 AM INSTRUCTION LIBRARIAN CONSENT/REFUSAL FOR Routine 09/24/2020 10:31 AM DIAGNOSIS AND TREATMENT INSTRUCTION LIBRARIAN documented in this encounter Results Not on filedocumented in this encounter Visit Diagnoses Diagnosis Infected open wound - Primary documented in this encounter Insurance Payer Benefit Plan / Subscriber ID Effective Phone Address T ype Group Dates MEDICARE MEDICARE PART A [id number] 1998-Pres [phone] [address] Medicare & B ent [id number] [place] [address] BCBS OF BCBS [id number] 2017-Pres [phone] [facility] TRADITIONAL ent [phone] [place] [address] documented as of this encounter Advance Directives Name Relationship Healthcare Agent Communication Relationship Stefany Baptiste Spouse Health Care Agent
--- OUTSIDE RECORDS SUMMARY | 2020-09-29 07:33 | XMS REPORT | Summary of Care ---
:1940 Author Organization [facility] Address [address] [place] [address] Care Team Providers Name Role Phone MD Garfield Primary Care Provider Topher Nails DO Block Tester Reason for Visit Reason Comments Other Wound Auth/Cert Status Reason Specialty Diagnoses / Referred By Referred To Procedures Contact Contact Emergency Medicine Adc Em ergency Dept [address] [place] [phone] Fax: Encounter Details Date Type Department Care Team Description 09/24/2020 Emergency ADC-Emergency Jyotsna Fernández, PAC Infected open wound Department [address] [place] [address] DR (Primary Dx) [address] [place], [place] [address] [phone] [place] [address] [phone] Allergies Active Allergy Reactions Severity Noted Date [...] mL) Soln mouth 2 (two) times daily. 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 documented as of this encounter Last Filed Vital Signs Vital Sign Reading Time Taken Comments Blood Pressure 152/61 09/24/2020 11:00 AM PIPE FITTER Pulse 98 09/24/2020 11:00 AM PIPE FITTER Temperature 36.2 C (97.2 F) 09/24/2020 10:38 AM PIPE FITTER Respiratory Rate 20 09/24/2020 11:00 AM PIPE FITTER Oxygen Saturation 99% 09/24/2020 11:00 AM PIPE FITTER Inhaled Oxygen Concentration - - Weight 77.6 kg (171 lb) 09/24/2020 10:38 AM PIPE FITTER Height - - Body Mass Index 25.04 09/05/2020 2:15 PM CDT documented in this encounter Discharge Instructions Jyotsna Jones, PAC - 09/24/2020DIAGNOSIS 1. Leg wound, infected NO LIFE-THREATENING FINDINGS ON TODAY'S EXAM. PROCEDURES IN THE ER TODAY: none MEDICATIONS ADMINISTERED IN THE ER TODAY: none YOUR PRESCRIPTIONS AND [id number] MEDICATION RECOMMENDATIONS: Clindamycin 450mg SPECIAL CARE INSTRUCTIONS: 1. Keep wound clean and dry. Continue wound care that you have been instructed by the wound care specialists. 2. Watch for signs of worse infection such as redness, swelling, purulent discharge or increased pain and follow up with your PCP or return to the ER clinic for re-evaluation 3. Follow up with your medicare contact specialist next week for re-evaluation. 4. Take antibiotics as they are prescribed until you are finished with them. FOLLOW-UP RECOMMENDATIONS: RECOMMEND FOLLOW-UP WITH A PRIMARY CARE PROVIDER OR SPECIALIST IN 2-5 DAYS, ESPECIALLY IF NO IMPROVEMENT IN SYMPTOMS. TO FOLLOW-UP WITHIN THE [facility], TRY THESE OPTIONS (CLINIC APPOINTMENTS AVAILABLE ON [id number] BASIS): 1. SCHEDULE AN APPOINTMENT ONLINE AT WWW[facility] 2. OR CALL THE [facility] ACCESS CENTER AT OR 3. OR CALL YOUR [facility] PHYSICIAN'S OFFICE DIRECTLY IF YOU ARE ALREADY AN ESTABLISHED [facility] PATIENT. OR, YOU MAY FOLLOW-UP WITH A PROVIDER OF YOUR CHOICE, SUCH : 1. A PHYSICIAN OF YOUR CHOICE 2. [facility], . LOCATIONS IN [facility] 3. [facility], [address] [place], [place]; [phone] RETURN TO ER FOR WORSENING OF SYMPTOMS. AttachmentsThe following attachments cannot be sent through Care Everywhere. Wound Infection, Recognizing and Treating (Swedish)documented in this encounter ED Notes Poppy Price [...] with steady gait, in no apparent distress, FITTER documented in this encounter Plan of Treatment Date Type Specialty Care Team Description 10/10/2020 Office Visit Family Medicine Barrington Merrill MD [address] [place] [phone] 11/21/2020 Office Visit Neurology Frandy Presley MD [address] [place] [address]. [place], [place] [phone] Health Maintenance Due Date [...] of this encounter Implants Implanted Type Area Engraver Set Up Operator Device Shelf Model / Identifier Expiration Serial / Lot Date Lens LENS Right: Eye Mello 08/10/2020 SN60WF / Implanted: Qty: 1 on 12/14/2015 by Nikhil Mendoza MD at [facility] 1 [id number] / [id number] 71 Acrysof Iq LENS Left: Eye Mello 07/11/2020 SN60WF / Implanted: Qty: 1 on 01/11/2016 by Nikhil Mendoza MD at [facility] 1 [id number] / [id number] 16 Sutureless Pump Connector Revision Kit Pump Right: Medtronic [id number] / Implanted: Qty: 1 on 01/14/2017 by Leonel Mccollum MD at [facility] Abdomen [id number] / [id number] Synchromed Ii Programmable Pump Pump Right: Medtronic 05/24/2018 8637-20 / Implanted: Qty: 1 on 01/14/2017 by Leonel Mccollum MD at [facility] Abdomen N [id number] / [id number] documented as of this encounter Procedures Procedure Name Priority Date/Time Associated Diagnosis Comme nts ASSIGNMENT OF BENEFITS Routine 09/24/2020 10:57 AM PIPE FITTER CONSENT/REFUSAL FOR Routine 09/24/2020 10:31 AM DIAGNOSIS AND TREATMENT PIPE FITTER documented in this encounter Results Not on filedocumented in this encounter Visit Diagnoses Diagnosis Infected open wound - Primary documented in this encounter Insurance Payer Benefit Plan / Subscriber ID Effective Phone Address T ype Group Dates MEDICARE MEDICARE PART A [id number] 1998-Pres [phone] [address] Medicare & B ent [id number] [place] [address] BCBS OF BCBS [id number] 2017-Pres [phone] [facility] TRADITIONAL ent [id number] [place] [address] documented as of this encounter Advance Directives Name Relationship Healthcare Agent Communication Relationship Stefany Baptiste Spouse Health Care Agent
[2020-09-29] MEDS ORDERED: NA CHLORIDE 0.9% 500 ML ONE (07:56)
[2020-09-29] MEDS ORDERED: HEPARIN 5000 UNIT/ML 1 ML VIAL ONE (08:24)
[2020-09-29] MEDS ORDERED: ATROPINE SULF 1 MG/10 ML SYR IV ONE (08:25)
[2020-09-29] MEDS ORDERED: MIDAZOLAM HCL 5 MG/5 ML INJ ONE (08:25)
[2020-09-29] MEDS ORDERED: FENTANYL CITR 100 MCG/2 ML ONE (08:25)
[2020-09-29] MEDS ORDERED: HEPA 1000U/500MLS 1,000 UNIT/500 ML BAG IV ONE ×2 (08:36→08:48)
[2020-09-29] MEDS ORDERED: LIDOCAINE 1% 20 ML MDV ONE (09:02)
--- NOTE | 2020-09-29 09:41 | OP ---
Surgeon: Jay Packer MD Wastewater Plant Operator: Citlaly Hou. The patient admitted as an outpatient on 09/29/2020. Reason For Admission: Severe peripheral vascular disease and nonhealing left leg wound on the left l eg and history of PAD before. History Of Present Illness: Mr. 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 He was prepped and draped in the routine sterile fashion. He was given Versed for sedation. He does have a history of hypertension and neuropathy and PAD as well as diabetes in the past. He has h ad some bilateral femoral-popliteal in the past. We placed a 6-Divehi sheath in the right common fem oral artery using a Seldinger technique. I could not pass a wire past the common iliac. We elected to put a 4-Divehi sheath in the left common femoral artery successfully. We could not advance the wi re past the left common iliac. Angiography on both sides revealed 100% occlusion of the bilateral common iliac artery. Runoff on th e right and the left side revealed a completely occluded left SFA, completely occluded femoral-poplit eal bypasses, diffuse disease in the right SFA. There were no complications. Blood Loss: 10 cc. Postoperative Diagnosis: Severe peripheral arterial disease 100% bilateral common iliac artery, 100% occlusion of the left SFA. Our plan is to do a CT angiogram on the abdominal aorta to see what intervention he can have from a s urgical standpoint. He is not a candidate for catheter intervention. We will continue his present r egimen. We will hold pressure on both groin sites for hemostasis. He will be at bedrest for 4 hours . I will discuss the case with his . Anesthesia: Total conscious sedation was 45 minutes. NB/PAULL Voice ID: [id number] Report ID: [id number]
[2020-09-29 11:52] VITALS: TEMP 97.6
[2020-09-29 13:53] VITALS: BP 139/57; O2SAT 96
== END 2020-09-29 13:40 | disposition home health service (06) ==
LOC: CCL 07:17
DX: I70.213 Atherosclerosis of native arteries of extremities with intermittent claudication, bilateral legs (principal); I70.92 Chronic total occlusion of artery of the extremities; I25.10 Atherosclerotic heart disease of native coronary artery without angina pectoris; I65.23 Occlusion and stenosis of bilateral carotid arteries; G62.9 Polyneuropathy, unspecified; I35.2 Nonrheumatic aortic (valve) stenosis with insufficiency; I11.0 Hypertensive heart disease with heart failure; I50.32 Chronic diastolic (congestive) heart failure; I48.20 Chronic atrial fibrillation, unspecified; E10.9 Type 1 diabetes mellitus without complications; Z79.4 Long term (current) use of insulin; J44.1 Chronic obstructive pulmonary disease with (acute) exacerbation; E78.2 Mixed hyperlipidemia; K21.9 Gastro-esophageal reflux disease without esophagitis; M19.90 Unspecified osteoarthritis, unspecified site; F41.1 Generalized anxiety disorder; F32.9 Major depressive disorder, single episode, unspecified; F17.210 Nicotine dependence, cigarettes, uncomplicated; Z88.6 Allergy status to analgesic agent; Z20.828 Contact with and (suspected) exposure to other viral communicable diseases
CPT/HCPCS: 93005; 85025; 80048; 36415; 85610; 82947; 85730; 71046; 36245 ×2; 75716; U0002; C1893; J2250; J3010; J7040; J1644 ×2

== ENCOUNTER 2020-10-05 07:55 | Observation (INO) | payer OTHER, BC ==
--- OUTSIDE RECORDS SUMMARY | 2020-10-05 08:36 | XMS REPORT | Continuity of Care Document ---
:1940 Author Organization [employer] [facility] Care Team Providers Name Role Phone [employer] Unavailable Un available Problems Problem Status Onset Classification Date Comments Sourc e Date Reported HYPOTENSION Active 07/04/20 19 [facility] DEHYDRATION, RENAL Active 07/04/20 M H FAILURE, 19 [facility] HYPOTENSION PVD Active 06/22/20 19 [facility] UNK Active 06/22/20 19 [facility] Nerve injury Resolved 06/22/19 Problem 07/21/2020 Mische r (disorder) 95 Neuro,[facility] Hypertensive Resolved 06/22/19 Problem 07/21/2020 Mische r disorder, systemic 88 N euro,[facility] arterial (disorder) [facility] Cervical Active Problem 07/21/2020 [facility]ischer spondylosis Neuro, (disorder) [facility] 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 M ischer neuralgia (finding) Neuro,[facility] Chronic back pain Active Problem 07/21/2020 M ischer (disorder) Neuro,[facility] Chronic kidney Active Problem 07/21/2020 Misc her disease stage 3 Neur o,[facility] (disorder) [facility] Confusional state Active Problem 07/21/2020 M ischer (disorder) Neuro,[facility] Coronary Active Problem 07/21/2020 Mischer arteriosclerosis Sophia ro,[facility] (disorder) [facility] Diabetes mellitus Active Problem 07/21/2020 M ischer (disorder) Neuro,[facility] Essential Active Problem 07/21/2020 Mischer hypertension Neuro,M H (disorder) [facility] Gastroesophageal Active Problem 07/21/2020 Mi villa reflux disease Neuro , (disorder) [facility] Generalized anxiety Active Problem 07/21/2020 Mischer disorder (disorder) Neuro,[facility] Headache (finding) Active Problem 07/21/2020 [facility] Neuro, [facility] Hyperlipidemia Active Problem 07/21/2020 Misc her (disorder) Neuro, [facility] Insomnia (disorder) Active Problem 07/21/2020 Mischer Neuro,[facility] Obstructive sleep Active Problem 07/21/2020 M [place] apnea syndrome Neuro , (disorder) [facility] Osteoarthritis Active Problem 07/21/2020 Misc her (disorder) Neuro,[facility] Peripheral nerve Active Problem 07/21/2020 Nc villa disease (disorder) N euro, [facility] Dehydration 07/08/2019 [facility] Chronic pain Resolved Problem 07/21/2020 legs and Mische r (finding) feet, back Neuro, [facility] Tremor (finding) Active Problem 07/21/2020 N[place] Neuro HYPOTENSION, Active UNSPECIFIED [place] DEHYDRATION Active [facility] PERIPHERAL VASCULAR Active DISEASE, [facility] UNSPECIFIED Medications Medication Details Route Status Patient Ordering Order Source Instructions Provider Date DULoxetine 30 mg 30 mg = 1 cap, Active 03/16/ Mischer oral delayed PO, Daily, # 30 2020 Sophia ro release capsule cap, 6 Refill(s), Pharmacy: [facility] Acetaminophen 1 cap, PO, Q4H, Active villa [...] euro Capsule cap, 3 [Cymbalta] Refill(s), Pharmacy: [facility] citalopram 40 mg 0 Refill(s) Inactive villa oral tablet 2020 Neuro Zofran Notes: (Same as: No Longer Zofran) Active 2018 [facility] MEDICATION WASTE Product Size: 4 mg Product Wasted: ___ mg atorvastatin Notes: (Same as: No Longer Lipitor) Active 2018 [facility] Citalopram 20 mg, 2 tab, No Longer Route: PO, Drug Active 2018 [place] form: TAB, Daily, Dosing Weight 87.415, kg, Start date: 07/05/19 21:00:00 CDT, Duration: 30 day, Stop date: 08/04/19 9:00:00 CDT, 0 Acetaminophen Notes: Do not No Longer exceed 4 gm/day. Active 2018 [facility] (Same as: Tylenol) Lactulose 667 Notes: (Same No Longer MG/ML Oral as:Chronulac) Active 2018 [facility] Solution Oxycontin Notes: Do not No Longer crush or chew. Active 2018 [facility] (Same as: OxyContin) Dextrose 50% 12.5 gm, 25 mL, No Longer H Syringe Route: IVP, Drug Active 2018 [facility] Form: INJ, Dosing Weight 87.415, kg, PRN, PRN Blood Glucose Results, Start date: 07/05/19 9:30:00 CDT, Duration: 30 day, Stop date: 08/04/19 9:29:00 CDT, 0 Glucagon 1 mg, Route: IM, No Longer Drug form: Active 2018 [facility] PDR/INJ, PRN, Dosing Weight 87.415, kg, PRN Blood Glucose Results, Start date: 07/05/19 9:30:00 CDT, Duration: 30 day, Stop date: 08/04/19 9:29:00 CDT, 0 Insulin Lispro Notes: (Same as: No Longer Humalog) Roll in Active 2018 [facility] palms of hands gently; Do not shake vigorously. WASTE: F/P - Black; E - [employer] Trash Bin Stable for 28 days at room temperature. Expires in days from Da te Dopamine Notes: (Same as: No Longer Intropin) Active 2018 [facility] Administer by either central venous catheter or peripherally-ins erted central catheter (PICC) line. Final conc = 3.2 mg/ml. Premix solution. Simvastatin Notes: (Same as: Inactive Zocor) 2018 [facility] Aspirin Notes: Do not No Longer crush or chew. Active 2018 (Same As: Ecotrin) Lovenox Notes: (Same as: No Longer Lovenox) Active 2018 [facility] cefepime Notes: (Same As: No Longer Maxipime) Active 2018 [facility] t MEDICATION WASTE Product Size: 1000 mg Product Wasted: ___ mg Trazodone Notes: (Same As: No Longer Desyrel) Active 2018 [facility] Calcium Chloride 1,000 mL, Rate: No Longer 07/04 0.0014 MEQ/ML / 100 ml/hr, Active 2018 [facility] Potassium Infuse over: 10 Chloride 0.004 [...] [place] tab, 0 Refill(s), Pharmacy: [facility] Aspirin 81 MG 81 mg = 1 tab, Active Enteric Coated PO, Daily, # 30 [place] Tablet tab, 0 Refill(s), Pharmacy: [facility] Docusate Sodium 100 mg = 1 cap, Active 100 MG Oral PO, BID, # 60 2019 [place] Capsule cap, 0 Refill(s), Pharmacy: [facility] Famotidine 20 MG 20 mg = 1 tab, Active Oral Tablet PO, BID, # 60 2019 [place] tab, 0 Refill(s), Pharmacy: [facility] metoprolol 25 mg 12.5 mg = 0.5 Active 07/02/ M H oral tablet, tab, PO, Daily, 2019 [facility] extended release # 15 tab, 0 Refill(s), Pharmacy: [facility] polyethylene See Active glycol 3350 oral Instructions, 2019 [place] kit PRN Constipation, PO BID, # 30 kit, 0 Refill(s), Pharmacy: [facility] sennosides, CORRECTION 17.2 mg = 2 tab, Active 8.6 MG Oral PO, Bedtime, X 2019 [facility] Tablet 14 day, # 28 tab, 0 Refill(s), Pharmacy: [facility] Amiodarone Notes: (Same as: Inactive Cordarone) 2019 [facility] AMIODarone 900 2 mg/ml. Use No Longer H mg in D5W 500 ml Glass Bottle or Active 2018 [facility] IV 900 mg + Non PVC Bag Dextrose 5% in "Use 0.22 micron Water IV 482 mL in-line filter" MEDICATION WASTE Product Size: 900 mg Product Wasted: ___ mg Amiodarone 2 mg/ml. Inactive "Recommendation: 2019 [facility] Use an in-line filter during administration for continuous infusions to reduce the incidence of phlebitis" (Same as Codarone) MEDICATION WASTE Product Size: 150 mg Product Wasted: ___ mg Furosemide Notes: (Same as: No Longer Lasix) Active 2018 [facility] Miralax Notes: Dissolve No Longer in 8 oz of water Active [address] or juice. (Same as: Miralax) glycerin adult 1 supp, Route: No Longer rectal TX, Drug Form: Active 2018 [facility] suppository SUPP, Dosing Weight 83.182, kg, Daily, PRN Constipation, Start date: 06/30/19 10:03:00 CDT, Duration: 30 day, Stop date: 07/30/19 10:02:00 CDT, 0 Fleet Enema 13 years, No Longer Pediatric Active 2018 [facility] Dosing, 0 citalopram 20 mg 20 mg = 1 tab, No Longer oral tablet PO, Daily, # 30 Active [facility] tab, 0 Refill(s) metoprolol Notes: (Same as: No Longer extended release Toprol XL) Do Active 2018 [place] Not Crush Lasix Notes: (Same as: Inactive Lasix) 2019 [facility] MEDICATION WASTE Product Size: 40 mg Product Wasted: ___ mg Lasix Notes: (Same as: Inactive Lasix) 2019 [facility] MEDICATION WASTE Product Size: 40 mg Product Wasted: ___ mg Insulin Lispro Notes: (Same as: No Longer Humalog) Roll in Active [address] [facility] [address] palms of hands gently; Do not shake vigorously. WASTE: F/P - Black; E - [employer] Trash Bin Stable for 28 days at room temperature. Expires in days from Da te Alprazolam Notes: With food No Longer or milk (Same Active 2018 [facility] as: Xanax) potassium Notes: (Same as: Inactive phosphate-sodium Phos-NaK) Each 2018 [facility] phosphate 1.5 gm pkt has 250mg phosphorous. Mix w/2.5oz water and stir. K-Dur 10 Notes: (Same as: Inactive K-Dur 10) "Do 2018 [facility] Not Crush" With food and full glass of water LR IV 1,000 mL 1,000 mL, Rate: No Longer 100 ml/hr, Active 2018 [facility] Infuse over: 10 hr, Route: IV, Dosing Weight 83.182 kg, Total Volume: 1,000, Start date: 06/27/19 9:52:00 CDT, Duration: 30 day, Stop date: 07/27/19 9:51:00 CDT, 2, m2, 0 Reglan Notes: (Same as: No Longer Reglan) Active 2018 [facility] Potassium Notes: (Same as: No Longer Chloride KCL) Infuse no [facility] [address] [facility] faster than 10 mEq/hr if given peripherally. sodium phosphate Notes: Infuse No Longer over 4 hour. Do Active 2018 [facility] t not infuse phosphorous concurrently in the [...] No Longer phosphate-sodium Phos-NaK) Each Active 2018 [facility] phosphate 250 1.5 gm pkt has mg-280 mg-160 mg 250mg oral powder for phosphorous. Mix reconstitution w/2.5oz water and stir. Magnesium Notes: WASTE: No Longer Sulfate F/P - Sink; E - Active [facility] [employer] Trash Bin Magnesium Oxide Notes: (Same as: No Longer 06/27 Mag-Ox 400) Active 2018 [facility] Magnesium oxide [id number] elemental magnesium Dose=____mg magnesium oxide (___mg elemental [...] No Longer H Apresoline) Push Active [address] [facility] over 5 minutes Pepcid Notes: (Same as: No Longer Pepcid) Active 2018 [facility] Tylenol Notes: Do not No Longer exceed 4 gm/day. Active [address] [facility] (Same as: Tylenol) Dexamethasone 10 mg, 2.5 mL, Inactive Route: IVP, Drug [address] form: INJ, ONCE, Dosing Weight 83.182, kg, Start date: 06/26/19 7:57:00 CDT, Stop date: 06/26/19 7:57:00 CDT, 0 Compazine Notes: (Same as: Inactive Compazine) 2019 [facility] Benadryl Notes: (Same as: Inactive Benadryl) 2019 [facility] albumin human 25 gm, Route: Inactive 25% intravenous IVPB, ONCE, 2019 [facility] solution Dosing Weight 83.182, kg, Start date: 06/25/19 18:39:00 CDT, Stop date: 06/25/19 18:39:00 CDT, Indication: Non-hemorrhagic shock ePHEDrine (ANES) Route: IV, Drug Inactive form: INJ, ONCE, [address] Stop date: 06/25/19 18:25:00 CDT Norepinephrine Notes: Same as: Inactive Levophed. 2019 [facility] Administer by either central venous catheter or peripherally-ins erted central catheter (PICC) line. Concentration: 0.032 mg / mL Hydralazine 10 mg, Route: Inactive IVP, Q20Min, 2018 [facility] Dosing Weight 83.182, kg, PRN Elevated BP, Start date: 06/25/19 17:57:00 CDT, Duration: 2 doses or times, Stop date: Limited # of times Labetalol 10 mg, Route: Inactive IVP, Q5Min, 2018 [facility] Dosing Weight 83.182, kg, PRN Elevated BP, Start date: 06/25/19 17:57:00 CDT, Duration: 5 doses or times, Stop date: Limited # of times Metoprolol 1 mg, Route: Inactive IVP, Q5Min, 2018 [facility] Dosing Weight 83.182, kg, PRN Other -See [...] Fentanyl 25 microgram, Inactive Route: IVP, 2019 [facility] Q5Min, Dosing Weight 83.182, kg, PRN Pain Score 4-6, Priority: Routine, Start date: 06/25/19 17:57:00 CDT, Duration: 4 doses or times, Stop date: Limited # of times Hydromorphone 0.5 mg, Route: Inactive IVP, Q5Min, 2019 [facility] Dosing Weight 83.182, kg, PRN Pain Score 7-10, Start date: 06/25/19 17:57:00 CDT, Duration: 4 doses or times, Stop date: Limited # of times Flumazenil 0.2 mg, Route: Inactive IVP, PRN, Dosing 2018 [facility] Weight 83.182, kg, PRN Benzodiazepine Reversal, Initial dose, Start date: 06/25/19 17:57:00 CDT, Duration: 30 day, Stop date: 07/25/19 17:56:00 CDT Naloxone 0.4 mg, Route: Inactive IVP, Q2MIN, 2018 [facility] Dosing Weight 83.182, kg, PRN Narcotic Reversal, Start date: 06/25/19 17:57:00 CDT, Duration: 8 doses or times, Stop date: Limited # of times Ondansetron 4 mg, Route: Inactive IVP, ONCE, 2018 [facility] Dosing Weight 83.182, kg, PRN Nausea & Vomiting, Start date: 06/25/19 17:57:00 CDT glycopyrrolate Route: IV, Drug Inactive (ANES) form: INJ, ONCE, 2018 [facility] Stop date: 06/25/19 17:18:00 CDT neostigmine Route: IV, Drug Inactive (ANES) form: INJ, ONCE, 2018 [facility] Stop date: 06/25/19 17:18:00 CDT ondansetron Route: IV, Drug Inactive (ANES) form: INJ, ONCE, 2018 [facility] Stop date: 06/25/19 17:18:00 CDT Lovenox Notes: (Same as: No Longer Lovenox) Active 2018 [facility] normal saline 1,000 mL, Rate: No Longer 0.9% IV 1,000 mL 100 ml/hr, Active [place] [facility] Infuse over: 10 hr, Route: IV, Dosing Weight 83.182 kg, Total Volume: 1,000, Start date: 06/25/19 16:47:00 CDT, Duration: 30 day, Stop date: 07/25/19 16:46:00 CDT, 2, m2, 0 protamine (ANES) Route: IV, Drug Inactive form: INJ, ONCE, 2018 [facility] Stop date: 06/25/19 16:22:00 CDT acetaminophen Route: IV, Drug Inactive M H (ANES) form: INJ, ONCE, 2018 [facility] Stop date: 06/25/19 15:04:00 CDT heparin (ANES) Route: IV, Drug Inactive form: INJ, ONCE, 2018 [facility] Stop date: 06/25/19 14:23:00 CDT albumin human Route: IV, Drug Inactive H (ANES) 25 gm form: INJ, Start 2018 [place] date: 06/25/19 13:36:00 CDT, Stop date: 06/25/19 14:36:00 CDT lidocaine (ANES) Route: IV, Drug Inactive form: INJ, ONCE, 2018 [facility] Stop date: 06/25/19 13:17:00 CDT fentaNYL (ANES) Route: IV, Drug Inactive form: INJ, ONCE, 2018 [facility] Stop date: 06/25/19 13:17:00 CDT propofol (ANES) Route: IV, Drug Inactive form: INJ, ONCE, 2018 [facility] Stop date: 06/25/19 13:17:00 CDT rocuronium Route: IV, Drug Inactive 06/25/ MH (ANES) form: INJ, ONCE, 2018 [facility] Stop date: 06/25/19 13:17:00 CDT ceFAZolin (ANES) Route: IV, Drug Inactive form: INJ, ONCE, 2018 [facility] Stop date: 06/25/19 13:17:00 CDT Sodium Chloride Route: IV, Total Inactive 0.9% IV (ANES) Volume: 1,000, 2018 [place] [facility] 1000 mL Start date: 06/25/19 12:25:00 CDT, Stop date: 06/25/19 13:25:00 CDT Calcium Chloride 1,000 mL, Rate: Inactive 0.0014 MEQ/ML / 25 ml/hr, Infuse 2018 [facility] Potassium over: 40 hr, Chloride 0.004 Route: [...] Same as: No Longer Levophed. Active 2018 [facility] Administer by either central venous catheter or peripherally-ins erted central catheter (PICC) line. Concentration: 0.032 mg / mL Lovenox Notes: (Same as: No Longer Lovenox) Active 2018 [facility] Docusate Notes: (Same as: No Longer Colace) ([facility] Not [facility] Aspirin Notes: Do not No Longer crush or chew. Active 2018 [facility] (Same As: Ecotrin) Citalopram 40 mg, 4 tab, No Longer Route: PO, Drug Active 2018 [place] form: TAB, Daily, Dosing Weight 83.182, kg, Start date: 06/24/19 9:00:00 CDT, Duration: 30 day, Stop date: 07/23/19 9:00:00 CDT, 0 gabapentin 600 Notes: (Same as: No Longer MG Oral Tablet Neurontin) Active 2018 [facility] ast Simvastatin Notes: (Same as: No Longer H Zocor) Active 2018 [facility] Alprazolam Notes: With food No Longer or milk (Same Active 2018 [facility] as: Xanax) Lisinopril Notes: (Same as: No Longer Prinivil, Active 2018 [facility] Zestril) Zofran Notes: (Same as: No Longer Zofran) 2018 [facility] MEDICATION WASTE Product Size: 4 mg Product Wasted: ___ mg sennosides, CORRECTION Notes: (Same as: No Longer 06/24 Senokot) Active 2018 [facility] 200 ACTUAT Notes: SEE RT No Longer Albuterol 0.09 DOCUMENTATION Active 2018 [facility] MG/ACTUAT (Same as: Metered Dose Proventil) Inhaler [ProAir HFA] oxyCODONE 10 mg Notes: Do not No Longer extended release crush or chew. Active 2018 [facility] (Same as: OxyContin) gabapentin 600 600 mg = 1 tab, Active MG Oral Tablet PO, TID, # 270 [place] tab, 0 Refill(s) Dextrose 50% 12.5 gm, 25 mL, No Longer Syringe Route: IVP, Drug Active [address] [facility] [address] Form: INJ, Dosing Weight 83.182, kg, PRN, PRN Blood Glucose Results, Start date: 06/23/19 17:52:00 CDT, Duration: 30 day, Stop date: 07/23/19 17:51:00 CDT, 0 Glucagon 1 mg, Route: IM, No Longer Drug form: Active 2018 [facility] PDR/INJ, PRN, Dosing Weight 83.182, kg, PRN Blood Glucose Results, Start date: 06/23/19 17:52:00 CDT, Duration: 30 day, Stop date: 07/23/19 17:51:00 CDT, 0 Insulin Lispro Notes: (Same as: No Longer Humalog) Roll in Active 2019 [facility] palms of hands gently; Do not shake vigorously. WASTE: F/P - Black; E - [employer] Trash [employer] Stable for 28 days at room temperature. Expires in days from Da te Oxycodone Notes: (Same as: No Longer Hydrochloride 5 Roxicodone) Active 2019 [place] Oral Tablet Dextrose 50% 12.5 gm, 25 mL, Inactive Syringe Route: IVP, Drug 2019 [facility] Form: INJ, Dosing Weight 83.182, kg, PRN, PRN Blood Glucose Results, Start date: 06/23/19 17:47:00 CDT, Duration: 30 day, Stop date: 07/23/19 17:46:00 CDT, 0 Glucagon 1 mg, Route: IM, Inactive Drug form: 2019 [facility] PDR/INJ, PRN, Dosing Weight 83.182, kg, PRN Blood Glucose Results, Start date: 06/23/19 17:47:00 CDT, Duration: 30 day, Stop date: 07/23/19 17:46:00 CDT, 0 Trazodone Notes: (Same As: No Longer Desyrel) Active 2019 [facility] Lovenox 40 mg, Route: Inactive SUB-Q, Drug 2018 [facility] form: INJ, Q24H, Dosing Weight 83.182, kg, Priority: Within 8 hours, Start date: 06/23/19 16:00:00 CDT, Duration: 30 day, Stop date: 07/22/19 16:00:00 CDT Hydralazine 10 mg, Route: Inactive IVP, Q20Min, 2018 [facility] Dosing Weight 83.182, kg, PRN Elevated BP, Start date: 06/23/19 15:27:00 CDT, Duration: 2 doses or times, Stop date: Limited # of times Labetalol 10 mg, Route: Inactive IVP, Q5Min, 2018 [facility] Dosing Weight 83.182, kg, PRN Elevated BP, Start date: 06/23/19 15:27:00 CDT, Duration: 5 doses or times, Stop date: Limited # of times Metoprolol 1 mg, Route: Inactive IVP, Q5Min, 2019 [facility] Dosing Weight 83.182, kg, PRN Other -See Comment, Start date: 06/23/19 15:27:00 CDT, Duration: 5 doses or times, Stop date: Limited # of times Acetaminophen 1,000 mg, Route: Inactive IVPB, Drug form: 2019 [facility] INJ, ONCE, Dosing Weight 83.182, kg, PRN Pain Score 1-3, Start date: 06/23/19 15:27:00 CDT Oxycodone 5 mg, Route: PO, Inactive Hydrochloride 5 Drug form: TAB, 2019 [facility] Oral Tablet Q4H, Dosing Weight 83.182, kg, PRN Pain Score 4-6, Start date: 06/23/19 15:27:00 CDT, Duration: 30 day, Stop date: 07/23/19 15:26:00 CDT Fentanyl 25 microgram, Inactive Route: IVP, 2018 [facility] Q5Min, Dosing Weight 83.182, kg, PRN Pain Score 4-6, Priority: Routine, Start date: 06/23/19 15:27:00 CDT, Duration: 4 doses or times, Stop date: Limited # of times Hydromorphone 0.5 mg, Route: Inactive IVP, Q5Min, 2018 [facility] Dosing Weight 83.182, kg, PRN Pain Score 7-10, Start date: 06/23/19 15:27:00 CDT, Duration: 4 doses or times, Stop date: Limited # of times Flumazenil 0.2 mg, Route: Inactive IVP, PRN, Dosing [address] [facility] [address] Weight 83.182, kg, PRN Benzodiazepine Reversal, Initial dose, Start date: 06/23/19 15:27:00 CDT, Duration: 30 day, Stop date: 07/23/19 15:26:00 CDT Naloxone 0.4 mg, Route: Inactive IVP, Q2MIN, 2018 [facility] Dosing Weight 83.182, kg, PRN Narcotic Reversal, Start date: 06/23/19 15:27:00 CDT, Duration: 8 doses or times, Stop date: Limited # of times Ondansetron 4 mg, Route: Inactive IVP, ONCE, 2018 [facility] Dosing Weight 83.182, kg, PRN Nausea & [...] IV, Drug Inactive form: INJ, ONCE, 2018 [facility] Stop date: 06/23/19 15:16:00 CDT lidocaine (ANES) Route: IV, Drug Inactive form: INJ, ONCE, 2018 [facility] Stop date: 06/23/19 15:13:00 CDT propofol (ANES) Route: IV, Drug Inactive form: INJ, ONCE, 2018 [facility] Stop date: 06/23/19 15:13:00 CDT vancomycin Route: IV, Drug Inactive (ANES) 1000 mg form: INJ, Start 2018 [facility] date: 06/23/19 14:35:00 CDT, Stop date: 06/23/19 15:35:00 CDT ceFAZolin (ANES) Route: IV, Drug Inactive 1000 mg form: INJ, Start 2018 [facility] date: 06/23/19 14:30:00 CDT, Stop date: 06/23/19 15:30:00 CDT Sodium Chloride Route: IV, Total Inactive 0.9% IV (ANES) Volume: 1,000, [place] 1000 mL Start date: 06/23/19 14:26:00 CDT, Stop date: 06/23/19 15:26:00 CDT Ancef + sterile Notes: (Same As: Inactive water 20 mL Ancef, Kefzol) 2018 [facility] MEDICATION WASTE Product Size: 1000 mg Product Wasted: ___ mg Vancomycin 2001 mg: infuse Inactive over 2.5 hours 2018 [facility] For adult patients only: Round to nearest 250 mg per Medical Staff approval MEDICATION WASTE Product Size: 1000 mg Product Wasted: ___ mg Acetylcysteine Notes: SEND Inactive H 200 MG/ML TO PRE-OP 2019 [facility] Inhalant SEND TO Solution PRE-OP SEND TO PRE-OP NS 1,000 mL 1,000 mL, Rate: Inactive 150 ml/hr, 2018 [facility] Infuse over: 6.7 hr, Route: IV, Dosing Weight 84.545 kg, Total Volume: 1,000, Start date: 06/23/19 10:01:00 CDT, Duration: 30 day, Stop date: 07/23/19 10:00:00 CDT, 2.06, m2, 0 oxcarbazepine 150 mg = 1 tab, Active [place] 150 MG Oral PO, Bedtime, # 2018 Neuro Tablet 30 tab, 3 [Trileptal] Refill(s), Pharmacy: [facility] gabapentin 600 600 mg = 1 tab, [...] Magnesium 2.1 1.8 - 2.4 07/06 Lv [facility] CHEM PANEL Phosphorus 3.5 2.5 - 4.5 07/06 [facility] CHEM PANEL Glucose Lvl 152 70 - 99 07/06 [facility] CHEM PANEL BUN 29 7 - 22 07/06 [facility] CHEM PANEL Creatinine 1.12 0.50 - 07/06 Lvl 1.40 /2018 [facility] CHEM PANEL Sodium Lvl 144 135 - 145 07/06 [facility] CHEM PANEL Potassium 3.9 3.5 - 5.1 07/06 Lv [facility] CHEM PANEL Chloride Lvl 109 95 - 109 07/06 [facility] CHEM PANEL CO2 32 24 - 32 07/06 [facility] CHEM PANEL Calcium Lvl 7.6 8.5 - 10.5 07/06 [facility] CHEM PANEL AGAP 6.9 10.0 - 07/06 20.0 [facility] CHEM PANEL eGFR 63 07/06 Result Comment: The [facility] eGFR is calculated using the CKD-EPI formula. [...] Calcium Lvl 7.6 8.5 - 10.5 07/06 [facility] HEMATOLOGY WBC 7.2 3.7 - 10.4 07/06 [facility] HEMATOLOGY RBC 2.93 4.70 - 07/06 MH 6.10 [facility] HEMATOLOGY Hgb 9.4 14.0 - 07/06 18.0 [facility] HEMATOLOGY Hct 28.1 42.0 - 07/06 54.0 /2018 [facility] HEMATOLOGY MCV 96.1 80.0 - 07/06 MH 94.0 /2018 [facility] HEMATOLOGY MCH 32.1 27.0 - 07/06 31.0 [facility] HEMATOLOGY MCHC 33.4 32.0 - 07/06 36.0 [facility] HEMATOLOGY RDW 16.1 11.5 - 07/06 14.5 [facility] HEMATOLOGY Platelet 282 133 - 450 07/06 [facility] HEMATOLOGY MPV 7.9 7.4 - 10.4 07/06 [facility] STIMULATIO Albert 180 Min 10.8 07/06 N STUDIES /2018 [facility] BLOOD BANK ABO/Rh O POS 07/05 RESULTS /2018 [facility] BLOOD BANK Antibody Negative 07/05 RESULTS Scrn (07/05/19 11:00 AM) [facility] Hospital BLOOD [facility] RBC product Product available 4 07/05 Resul t RESULTS (07/05/19 9:30 AM) Comment: [facility] 07/05/2019 12:33 [id number]
KLS notified Mandy 07/05/2019 12:33 CHEM PANEL Calcium Lvl 7.6 8.5 - 10.5 07/05 [facility] CHEM PANEL Glucose Lvl 170 70 - 99 07/05 [facility] CHEM PANEL BUN 45 7 - 22 07/05 [facility] CHEM PANEL Creatinine 1.69 0.50 - 07/05 Lvl 1.40 [facility] CHEM PANEL Sodium Lvl 143 135 - 145 07/05 [facility] CHEM PANEL Potassium 3.7 3.5 - 5.1 07/05 Lvl [facility] CHEM PANEL Chloride Lvl 106 95 - 109 07/05 [facility] CHEM PANEL CO2 32 24 - 32 07/05 [facility] CHEM PANEL Calcium Lvl 7.6 8.5 - 10.5 07/05 [facility] CHEM PANEL AGAP 8.7 10.0 - 07/05 20.0 [facility] CHEM PANEL eGFR 38 07/05 Result Comment: The [facility] eGFR is calculated using the CKD-EPI formula. [...] 2.0 1.8 - 2.4 07/05 MH Lvl [facility] CHEM PANEL Phosphorus 3.7 2.5 - 4.5 07/05 [facility] HEMATOLOGY WBC 8.6 3.7 - 10.4 07/05 [facility] HEMATOLOGY RBC 2.48 4.70 - 07/05 MH 6.10 [facility] HEMATOLOGY Hgb 8.0 14.0 - 07/05 MH 18.0 [facility] HEMATOLOGY Hct 24.1 42.0 - 07/05 MH 54.0 [facility] HEMATOLOGY MCV 97.1 80.0 - 07/05 MH 94.0 [facility] HEMATOLOGY MCH 32.2 27.0 - 07/05 MH 31.0 [facility] HEMATOLOGY MCHC 33.2 32.0 - 07/05 MH 36.0 [facility] HEMATOLOGY RDW 16.5 11.5 - 07/05 MH 14.5 [facility] HEMATOLOGY Platelet 253 133 - 450 07/05 [facility] HEMATOLOGY MPV 8.5 7.4 - 10.4 07/05 [facility] CARDIAC Troponin-I 0.07 0.00 - 07/05 ENZYMES 0.40 /2018 [facility] CARDIAC Total CK 815 12 - 191 07/05 MH ENZYMES /2018 [facility] CHEM PANEL Magnesium 1.9 1.8 - 2.4 07/05 MH Lvl [facility] CHEM PANEL Phosphorus 3.4 2.5 - 4.5 07/05 [facility] ELECTROLYT AGAP 9.8 10.0 - 07/05 MH ES 20.0 [facility] ELECTROLYT B/C Ratio 24 6 - 25 / MH ES [facility] ELECTROLYT Globulin 2.3 2.7 - 4.2 07/05 MH ES [facility] ELECTROLYT A/G Ratio 1.2 0.7 - 1.6 [...] [place] ELECTROLYT eGFR 33 07/05 Comment: The [facility] eGFR is calculated using the CKD-EPI formula. [...] INR 1.16 0.85 - 07/05 MH 1.17 [facility] HEMATOLOGY PT 14.6 12.0 - 07/05 MH 14.7 [facility] HEMATOLOGY PTT 33.0 22.9 - 07/05 MH 35.8 /2018 [facility] HEMATOLOGY WBC 11.0 3.7 - 10.4 07/05 /2018 [facility] HEMATOLOGY RBC 2.89 4.70 - 07/05 MH 6.10 /2018 [facility] HEMATOLOGY Hgb 9.3 14.0 - 07/05 MH 18.0 /2018 [facility] HEMATOLOGY Hct 27.9 42.0 - 07/05 MH 54.0 /2018 [facility] HEMATOLOGY MCV 96.6 80.0 - 07/05 MH 94.0 /2018 [facility] HEMATOLOGY MCH 32.2 27.0 - 07/05 MH 31.0 /2018 [facility] HEMATOLOGY MCHC 33.3 32.0 - 07/05 MH 36.0 /2018 [facility] HEMATOLOGY RDW 16.9 11.5 - 07/05 MH 14.5 /2018 [facility] HEMATOLOGY Platelet 277 133 - 450 07/05 /2018 [facility] HEMATOLOGY MPV 8.4 7.4 - 10.4 07/05 /2018 [facility] HEMATOLOGY Segs 66.6 45.0 - 07/05 MH 75.0 /2018 [facility] HEMATOLOGY Lymphocytes 12.6 20.0 - 07/05 MH 40.0 /2018 [facility] HEMATOLOGY Monocytes 17.8 2.0 - 12.0 07/05 [facility] HEMATOLOGY Eosinophils 2.4 0.0 - 4.0 07/05 [facility] HEMATOLOGY Basophils 0.6 0.0 - 1.0 07/05 [facility] HEMATOLOGY Neutrophils 7.4 1.5 - 8.1 07/05 MH # /2018 [facility] HEMATOLOGY Lymphocytes 1.4 1.0 - 5.5 07/05 # /2018 [facility] HEMATOLOGY Monocytes # 2.0 0.0 - 0.8 07/05 [facility] HEMATOLOGY Eosinophils 0.3 0.0 - 0.5 07/05 # /2018 [facility] HEMATOLOGY Basophils # 0.1 0.0 - 0.2 07/05 [facility] URINE CHEM U Sodium 26 07/04 [facility] URINE CHEM U Creatinine 113.00 07/04 [facility] Culture: No Growth 07/04 Urine /2018 [facility] CHEM PANEL Glucose Lvl 199 70 - 99 07/02 [facility] CHEM PANEL BUN 24 7 - 22 07/02 [facility] CHEM PANEL Creatinine 1.31 0.50 - 07/02 Lvl 1.40 /2018 [facility] CHEM PANEL Sodium Lvl 142 135 - [...] PANEL eGFR 52 07/02 Result Comment: The [facility] eGFR is calculated using the CKD-EPI formula. [...] Glucose Lvl 92 70 - 99 07/01 [facility] CHEM PANEL BUN 21 7 - 22 [...] PANEL eGFR 46 07/01 Result Comment: The [facility] eGFR is calculated using the CKD-EPI formula. [...] A/G Ratio 1.1 0.7 - 1.6 06/30 [facility] CHEM PANEL eGFR 63 06/30 Result Comment: The [facility] eGFR is calculated using the CKD-EPI formula. [...] HEMATOLOGY WBC 9.0 3.7 - 10.4 06/30 [facility] HEMATOLOGY RBC 2.65 4.70 - 06/30 MH 6. [facility] HEMATOLOGY Hgb 8.5 14.0 - 06/30 MH 18. [facility] HEMATOLOGY Hct 24.6 42.0 - 06/30 MH 54.0 [facility] HEMATOLOGY MCV 92.6 80.0 - 06/30 MH 94.0 [facility] HEMATOLOGY MCH 32.2 27.0 - 06/30 MH 31.0 [facility] HEMATOLOGY MCHC 34.7 32.0 - 06/30 MH 36.0 [facility] HEMATOLOGY RDW 14.8 11.5 - 06/30 MH 14.5 [facility] HEMATOLOGY Platelet 165 133 - 450 06/30 [facility] HEMATOLOGY MPV 8.5 7.4 - 10.4 06/30 [facility] HEMATOLOGY WBC 9.6 3.7 - 10.4 06/29 [facility] HEMATOLOGY RBC 3.10 4.70 - 06/29 MH 6. [facility] HEMATOLOGY Hgb 10.0 14.0 - 06/29 MH 18.0 [facility] HEMATOLOGY Hct 29.0 42.0 - 06/29 MH 54.0 [facility] HEMATOLOGY MCV 93.5 80.0 - 06/29 MH [...] WBC 9.0 3.7 - 10.4 06/29 /2018 [facility] HEMATOLOGY RBC 2.54 4.70 - 06/29 MH 6.10 [facility] HEMATOLOGY Hgb 8.2 14.0 - 06/29 MH 18.0 [facility] HEMATOLOGY Hct 23.3 42.0 - 06/29 MH 54.0 /2018 [facility] HEMATOLOGY MCV 91.6 80.0 - 06/29 MH 94.0 [facility] HEMATOLOGY MCH 32.1 27.0 - 06/29 MH 31.0 [facility] HEMATOLOGY MCHC 35.1 32.0 - 06/29 MH 36.0 [facility] HEMATOLOGY RDW 14.9 11.5 - 06/29 MH 14.5 [facility] HEMATOLOGY Platelet 118 133 - 450 06/29 [facility] HEMATOLOGY MPV 8.0 7.4 - 10.4 06/29 /2018 [facility] BLOOD BANK RBC product Product available 06/28 RESULTS (06/28/19 3:52 PM) /2018 [facility] BLOOD BANK RBC product Product available 4 06/28 Resul t RESULTS (06/28/19 3:11 PM) Comment: [facility] 06/28/2019 15:39 [id number]
Called to JASON GONZALEZ_ at _06/28/2019 15:[address] [facility]_. BLOOD BANK ABO/Rh O POS 06/28 RESULTS /2018 [facility] BLOOD BANK Antibody Negative 06/28 RESULTS Scrn (06/28/19 8:27 AM) [facility] BLOOD BANK RBC product Product available 5 06/28 Resul t RESULTS (06/28/19 8:05 AM) Comment: [facility] 06/28/2019 09:49 [id number]
KLS notified Gema 06/28/2019 09:49 CHEM PANEL Magnesium 2.0 1.8 - 2.4 06/28 Lvl /2018 [facility] CHEM PANEL Phosphorus 2.6 2.5 - 4.5 06/28 [facility] HEMATOLOGY Segs 70.8 45.0 - 06/28 MH 75.0 [facility] HEMATOLOGY Lymphocytes 13.5 20.0 - 06/28 MH 40.0 [facility] HEMATOLOGY Monocytes 15.1 2.0 - 12.0 06/28 [facility] HEMATOLOGY Eosinophils 0.5 0.0 - 4.0 06/28 /2018 [facility] HEMATOLOGY Basophils 0.1 0.0 - 1.0 08 MH /2018 [facility] HEMATOLOGY Neutrophils 9.3 1.5 - 8.1 06/28 MH # /2019 [facility] HEMATOLOGY Lymphocytes 1.8 1.0 - 5.5 06/28 MH # /2019 [facility] HEMATOLOGY Monocytes # 2.0 0.0 - 0.8 06/28 MH /2018 [facility] HEMATOLOGY Eosinophils 0.1 0.0 - 0.5 06/28 MH # /2018 [facility] CHEM PANEL Magnesium 2.2 1.8 - 2.4 06/27 Lvl /2018 [facility] CHEM PANEL Phosphorus 3.3 2.5 - 4.5 06/27 /2018 [facility] CARDIAC Troponin-I 0.03 0.00 - 06/25 ENZYMES 0.40 [facility] PARATHYROI Ca Ion WB 1.08 1.05 - 06/24 D PROFILE 1. [facility] PARATHYROI Ca Norm WB 1.10 1.05 - 06/24 D PROFILE . [facility] BLOOD BANK ABO/Rh O POS 06/23 RESULTS /2018 [facility] BLOOD BANK Antibody Negative 06/23 RESULTS Scrn (06/23/19 11:13 AM) /2018 [facility] HEMATOLOGY INR 1.17 0.85 - 06/23 1.17 /2018 [facility] HEMATOLOGY PT 14.7 12.0 - 06/23 14.7 [facility] HEMATOLOGY PTT 30.8 22.9 - 06/23 35.8 [facility] Basophils # 0.1 0.0 - 0.2 06/23 [facility] Pathology Reports No Data Provided for This Section Diagnostic Reports Report Value Date Source Chest 1view DX Patient Name: NATE POWER 06/30/2019 [facility] : 1940; Age: 79 years y/o Male MR: [id number] Study: Chest 1view DX 06/30/2019 11:00 CDT [...] Correlate clinically for pneumonitis or edema. SL: [id number] Chest 1 v for Patient Name: NATE POWER 06/25/2019 [facility] Placement DX : 1940; Age: 79 years y/o Male MR: [id number] Study: Chest 1 v for Placement DX [...] series Clinical Indication: - INCORRECT COUNT 06/11 [facility] Comparison: None FINDINGS: AP and lateral [...] DX Clinical Indication: - INCORRECT COUNT; 019 [facility] Comparison: Tibia and fibula radiographs perform ed [...] acute radiographic abnormalities in the chest . [id number] Consultation Notes No Data Provided for This Section Discharge Summaries No Data Provided for This Section History and Physicals No Data Provided for This Section Vital Signs Vital Sign Value Date Comments Source Systolic (mm Hg) 172 03/16/2020 [facility] Diastolic (mm Hg) 56 03/16/2020 [facility] Heart Rate 68 03/16/2020 [facility] Respitory Rate 16 03/16/2020 [facility] Neuro Temperature Oral (F) 98.2 F 03/16/2020 [facility] Height 177.8 cm 03/16/2020 [facility] Weight 83.636 03/16/2020 [facility] Neuro BMI Calculated 26.46 03/16/2020 [facility] Systolic (mm Hg) 149 12/17/2019 [facility] Diastolic (mm Hg) 65 12/17/2019 [facility] Heart Rate 75 12/17/2019 [facility] Respitory Rate 16 12/17/2019 [facility] Height 170.18 cm 12/17/2019 [facility] Weight 85 12/17/2019 [facility] BMI Calculated 29.35 12/17/2019 [facility] Systolic (mm Hg) 132 11/13/2019 [facility] Diastolic (mm Hg) 46 11/13/2019 [facility] Heart Rate 71 11/13/2019 [facility] Respitory Rate 16 11/13/2019 [facility] Height 170.18 cm 11/13/2019 [facility] Weight 85.455 11/13/2019 [facility] BMI Calculated 29.51 11/13/2019 [facility] Respitory Rate 22 07/06/2019 [...] 175.26 cm 07/04/2019 [facility] Weight 87.415 07/04/2019 [facility] BMI Calculated 28.46 07/04/2019 [facility] Respitory Rate 20 07/02/2019 [facility] Systolic (mm Hg) 110 07/02/2019 [facility] Diastolic (mm Hg) 58 07/02/[address] [facility] Resp[facility] Rate 18 07/02/2019 [facility] Systolic (mm Hg) 114 07/02/2019 [facility] [facility] Diastolic (mm Hg) 37 07/02/[facility] Respitory Rate 10 07/02/2019 [facility] Systolic (mm Hg) 115 07/02/2019 [place] [facility] Diastolic (mm Hg) 41 07/02/[address] [facility] Temperature Oral (F) 98.6 F 07/02/2019 [facility] Temperature Oral (F) 98.7 F 07/02/2019 [facility] Height 170.18 cm 07/02/2019 [facility] Temperature Oral (F) 99.2 F 07/02/2019 [facility] Height 170.18 cm 07/01/2019 [facility] Height 170.18 cm 07/01/2019 [facility] Heart Rate 54 06/25/2019 [facility] Heart Rate 50 06/25/2019 [facility] Heart Rate 56 06/25/2019 [facility] Weight 83.182 06/23/2019 [facility] BMI Calculated 28.72 06/23/2019 [facility] BMI Calculated 26.74 10/23/2018 [facility] Height 177.8 cm 10/23/2018 [facility] Weight 84.545 10/23/2018 [facility] Systolic (mm Hg) 159 10/23/2018 [facility] Diastolic (mm Hg) 65 10/23/2018 [facility] Heart Rate 70 10/23/2018 [facility] Neuro BMI Calculated 27.46 10/09/2018 [facility] Neuro Weight 86.818 10/09/2018 [facility] Neuro Height 177.8 cm 10/09/2018 [facility] Neuro Respitory Rate 16 10/09/2018 [facility] Neuro Heart Rate 74 10/09/2018 [facility] Neuro Systolic (mm Hg) 177 10/09/2018 [facility] Sophia ro Diastolic (mm Hg) 79 10/09/2018 [facility] Ne uro BMI Calculated 26.74 09/11/2018 [facility] Neuro Weight 84.545 09/11/2018 [facility] Neuro Heart Rate 76 09/11/2018 [facility] Neuro Height 177.8 cm 09/11/2018 [facility] Neuro Systolic (mm Hg) 135 09/11/2018 [facility] Sophia ro Diastolic (mm Hg) 54 09/11/2018 [facility] Ne uro Encounters Location Location Encounter Encounter Reason Attending ADM [place] Stat us Source Details Type Number For Provider Date Date Visit Outpatient [id number] AYAZ 09/11 Active [facility] [place] [facility] Outpatient [id number] Ayaz 09/11 09/12 [facility] Neurology [facility] Neuro [place] Outpatient [id number] AYAZ 09/16 Active [facility] [place] MNA Outpatient [id number] Ayaz 09/16 09/17 [facility] Neurology [facility] Neuro [place] MNA Outside [id number] 09/25 09/27 [facility] Neuro [place] Records MNA Phone [id number] 09/26 09/28 [facility] Neurology [facility] [place] Outpatient [id number] AYAZ 10/09 Active [facility] [place] MNA Outpatient [id number] Ayaz 10/09 10/10 [facility] Neurology [facility] Neuro [place] Outpatient [id number] AYAZ 10/23 Active [facility] [place] M[place] Outpatient [id number] Ayaz 10/23 10/24 [facility] Neurology [facility] Neuro [place] MNA Outside [id number] 10/30 11/01 [facility] Neurology Medical Neuro [place] Records Outpatient [id number] AYAZ 11/20 Active [facility] [place] MNA Ambulatory [id number] Ayaz 11/20 11/20 [facility] Pre[facility]Reg [place] /2018 Neuro [place] Outpatient [id number] AYAZ 02/04 Active [facility] [place] Outpatient [id number] AYAZ 02/26 Active [facility] MNA Ambulatory [id number] Ayaz 02/26 02/26 [facility] Pre-Reg [place] [facility] [place] [facility] [id number] Gyanendra 06/24 07[facility]02 [facility] [facility] Inpatient [id number] Timoteo 07/04 07/06 [facility] Hotze /2018 [facility] Outpatient [id number] Ayaz 11/13 Active [facility] [place] /2020 [place] Outpatient [id number] Ayaz 11/13 11/14 [facility] Neurology [place] /2019 /2019 Neuro [place] Outpatient [id number] Ayaz 12/17 Active [facility] /2020 [place] MNA Outpatient [id number] Ayaz 12/17 12/18 [facility] Neurology Krell /2020 /2020 Neuro [place] Outpatient [id number] Ayaz 03/16 Active [facility] [place] /2020 [place] MNA Outpatient [id number] A Merrill 03/16 03/17 [facility] Neurology /2020 /2020 Neuro [place] Outpatient [id number] Ayaz 07/19 Active [facility] [place] /2020 [place] Outpatient [id number] Ayaz 07/19 Active [facility] Krell /2020 [place] MNA Ambulatory [id number] A Merrill 07/19 07/19 [facility] Neurology Pre-Reg /2020 2020 Neuro [place] MNA Ambulatory [id number] A Merrill 07/19 07/19 [facility] Neurology Pre-Reg /2020 /2020 Neuro [place] Procedures Procedure Code Date Perfomer Comments Source Kyphoplasty of [id number] 06/22/2013 [facility] fracture of lumbar Neuro, spine using [facility] computed tomography (CT) guidance Bypass / graft of [id number] 06/22/2008 [facility] vein [place], [place] Arthroplasty of [id number] 06/22/1995 right [facility] knee<sup>1</sup> [place] Discectomy [id number] 06/22/1986 [facility] Neuro,[facility] 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 [facility], hand [facility] Arthroscopy of [id number] 06/22/1964 also in 1983 [facility] knee Neuro, joint<sup>2</sup> [facility] [facility] Appendectomy [id number] [facility] Neuro,[facility] Assessment and Plan Assessment and Plan Date Source Extracted from:Title: Cardiology Progress Note 07/06/2019 [facility] Author: Chris Davis MD Date: 07/06/19 Impression [...] 24hr Tot 0 0 0 CCL error: %CZF-R-085-SMT_EDOC_COMMON(0, 0,56)[id number]:1833Overflow on array out of bound at (size:1,occur:10). CCL error: %VLH-U-358-SMT_EDOC_COMMON(0, 0,56)067608:1833Overflow on array out of bound at (size:1,occur:5). CCL error: %UJX-L-985-SMT_EDOC_COMMON(0, 0,56)962922:1833Overflow on array out of bound at (size:1,occur:5). CCL error: %JHL-A-368-SMT_EDOC_COMMON(0, 0,56)410454:1833Overflow on array out of bound at (size:1,occur:7). CCL error: %IPJ-L-721-SMT_EDOC_COMMON(0, 0,56)639360:1833Overflow on array out of bound at (size:1,occur:2). [...] I spent greater than 30 minutes in [facility] the clinical case, examining the patient, and discussing with the patient/patient's family, and with other consultants, the clinical course, treatment plan, and prognosis. Timoteo Parisi MD Pulmonary and Critical Care Extracted from:Title: Cardiology Progress Note 07/02/2019 [facility] Author: Chris Davis MD Date: 07/02/19 Impression [...] Water IV: 12.5 gm, 25 mL, IVP, TX N, PRN: Blood Glucose Results. Dextrose 50% in Water IV: 25 gm, 50 mL, IVP , PRN, PRN: Blood Glucose Results. docusate: 100 mg, 1 cap, PO, BID. enoxaparin: 40 mg, 0.4 mL, SUB-Q, [id number]. fentaNYL: 25 microgram, IVP, Q5Min, PRN: Pain [...] Daily, 0 Refill(s). enoxaparin: 40 mg, SUB-Q, [id number]. enoxaparin: 40 mg, SUB-Q, Q24H. enoxaparin: 40 mg, 0.4 mL, SUB-Q, [id number]. ePHEDrine: 25 mg, 5 mL, PYXIS, ONCE. [...] proof-reading. Please interpret accordingly. Delores Cunningham MD [facility] Medicine [facility] Plan of Care No Data Provided for This Section Social History Social History Date Source No data available for this 07/19/2020 [facility] section Social History TypeResponse 07/04/2019 [facility] Smoking Status Current every day smoker; Type: [...]
[2020-10-05] MEDS ORDERED: MAGNES/ALUMIN/SIMET 30ML UCUP ONE (08:37)
[2020-10-05] MEDS ORDERED: NA CHLORIDE 0.9% 500 ML ONE (08:37)
[2020-10-05] MEDS ORDERED: ONDANSETRON 4 MG/2 ML VIAL ONE (08:37)
[2020-10-05] MEDS ORDERED: FAMOTIDINE 20 MG/2 ML VIAL IV ONE (08:38)
--- OUTSIDE RECORDS SUMMARY | 2020-10-05 08:38 | XMS REPORT | Continuity of Care Document ---
:1940 Author Organization [facility] t Address [address] [place] [address] Care Team Providers Name Role Phone Garfield GAGNON Attending Clinician Fernandez GAGNON, Zohaib Attending Clinician Chuckie Sena Attending Clinician Simeon Parisi Attending Clinician Abel Cunningham Attending Clinician Simeon Parisi Admitting Clinician Abel Cunningham Admitting Clinician Problems Condition Condition Condition Status Onset Resolution Last Treating Co mments Source Name Details Category Date Date Treatment Clinician Date HYPOTENSIO Diagnosis Active 2019-07-23 Memoria N 8 22:09:00 l 00:00: [place] HYPOTENSIO 00 N Active 07/04/2019 [facility] DEHYDRATIO Diagnosis Active 2019-07-04 Memoria N, RENAL 8- 17:34:00 l FAILURE, 00:00: Jeremias HYPOTENSIO DEHYDRATIO 00 N N, RENAL FAILURE, HYPOTENSIO N Active 07/04/2019 [facility] PVD Diagnosis Active 2019-07-06 Mem oria 06-22 21:56:00 l PVD 00:00: [place] 00 Active 06/22/2019 [facility] UNK Diagnosis Active 2019-06-23 Mem oria 06-22 19:27:00 l UNK 00:00: [place] 00 Active 06/22/2019 [facility] Dehydratio Problem 2019-07-08 M emoria n 22:19:55 l [place] Dehydratio n 07/08/2019 [facility] Chronic Problem Resolve 2020-07-21 Mem oria pain d 21:21:18 l (finding) Chronic Herm jonas pain (finding) Resolved Problem 07/21/2020 legs and feet, back [facility] Cervical Problem Active 2020-07-21 Mem oria spondylosi 21:21:18 l s Cervical Telly n (disorder) spondylosi s (disorder) Active Problem 07/21/2020 [facility] Cervico-oc Problem Active 2020-07-21 M emoria cipital 21:21:18 l neuralgia Jeremias (finding) Cervico-oc cipital neuralgia (finding) Active Problem 07/21/2020 [facility] Chronic Problem Active 2020-07-21 Gabe carolynn back pain 21:21:18 l (disorder) Chronic Her bruno back pain (disorder) Active Problem 07/21/2020 [facility] Chronic Problem Active 2020-07-21 Gabe carolynn kidney 21:21:18 l disease Chronic Telly n stage 3 kidney (disorder) disease stage 3 (disorder) Active Problem 07/21/2020 [facility] Confusiona Problem Active 2020-07-21 emoria l state 21:21:18 l (disorder) Telly n Confusiona l state (disorder) Active Problem 07/21/2020 [facility] Coronary Problem Active 2020-07-21 [facility] oria arterioscl 21:21:18 l erosis Coronary Telly n (disorder) arterioscl erosis (disorder) Active Problem 07/21/2020 [facility] Diabetes Problem Active 2020-07-21 Mem oria mellitus 21:21:18 l (disorder) Diabetes He rmann mellitus (disorder) Active Problem 07/21/2020 [facility] Essential Problem Active 2020-07-21 Me moria hypertensi 21:21:18 l on Jeremias (disorder) Essential hypertensi on (disorder) Active Problem 07/21/2020 [facility] Gastroesop Problem Active 2020-07-21 M emoria hageal 21:21:18 l reflux Jeremias disease Gastroesop (disorder) hageal reflux disease (disorder) Active Problem 07/21/2020 [facility] Generalize Problem Active 2020-07-21 M emoria d anxiety 21:21:18 l disorder [place] (disorder) Generalize d anxiety disorder (disorder) Active Problem 07/21/2020 [facility] Headache Problem Active 2020-07-21 Mem oria (finding) 21:21:18 l Headache Telly n (finding) Active Problem 07/21/2020 [facility] Hyperlipid Problem Active 2020-07-21 M emoria emia 21:21:18 l (disorder) Telly n Hyperlipid emia (disorder) Active Problem 07/21/2020 [facility] Insomnia Problem Active 2020-07-21 Mem oria (disorder) 21:21:18 l Insomnia Telly n (disorder) Active Problem 07/21/2020 [facility] Obstructiv Problem Active 2020-07-21 M emoria e sleep 21:21:18 l apnea [place] syndrome Obstructiv (disorder) e sleep apnea syndrome (disorder) Active Problem 07/21/2020 [facility] Osteoarthr Problem Active 2020-07-21 M emoria itis 21:21:18 l (disorder) Telly n Osteoarthr itis (disorder) Active Problem 07/21/2020 [facility] Peripheral Problem Active 2020-07-21 M emoria nerve 21:21:18 l disease Jeremias (disorder) Peripheral nerve disease (disorder) Active Problem 07/21/2020 [facility] Tremor Problem Active 2020-07-21 Memor ia (finding) 21:21:18 l Tremor [place] (finding) Active Problem 07/21/2020 [facility] HYPOTENSIO Diagnosis Active 2019-07-23 Memoria N, 22:09:00 l UNSPECIFIE Telly n D HYPOTENSIO N, UNSPECIFIE D Active [facility] DEHYDRATIO Diagnosis Active 2019-07-04 Memoria N 17:34:00 l [place] DEHYDRATIO N Active [facility] PERIPHERAL Diagnosis Active 2019-07-06 Memoria VASCULAR 21:56:00 l DISEASE, [place] UNSPECIFIE PERIPHERAL D VASCULAR DISEASE, UNSPECIFIE D Active [facility] History of Past Illness Condition Condition Condition Status Onset Resolution Last Treating Co mments Source Name Details Category Date Date Treatment Clinician Date Nerve Problem Resolve 1994-2020-07-21 2020-07-21 Memoria injury d -12 21:21:18 21:21:18 l (disorder) Nerve 00:00: Pilar nn injury 00 (disorder) Resolved 06/22/1995 Problem 07/21/2020 [facility] Hypertensi Problem Resolve 1987-0 2020-07-21 2020-07-21 Memoria ve d 8-12 21:21:18 21:21:18 l disorder, 00:00: Jeremias systemic Hypertensi 00 arterial ve (disorder) disorder, systemic arterial (disorder) Resolved 06/22/1988 Problem 07/21/2020 [facility] Allergies, Adverse Reactions, Alerts Allergy Allergy Status Severity Reaction(s) Onset Inactive Treating Comm ents Source Name Type Date Date Clinician morphine morphine Active Memori a l Jeremias Dilaudid Dilaudid Active Memori a l Jeremias iodine iodine Active Memoria l Jeremias Social History Social Habit Start Date Stop Date Quantity Comments Source Social History 2020-07-19 2020-07-19 Bethany bird 15:00:00 15:00:00 Smoking Status Start Date Stop Date Source Social History 2019-07-04 22:41:06 [facility] Her bruno Medications Ordered Filled Start Stop Current Ordering Indication Dosage Frequency Signature Comments Components Source Medication Medication Date Date Medication? Clinician (SIG) Name Name DULoxetine Yes 30 mg = 1 Me moria 30 mg oral 5-06 cap, PO, l delayed 15:03: Daily, # Telly n release 00 30 cap, 6 capsule Refill(s), Pharmacy: [facility] Acetaminoph Yes 1 cap, PO, Memoria en 300 MG / 2-06 Q4H, 0 l butalbital 22:03: Refill(s) He rmann 50 MG / 00 Caffeine 40 MG Oral Capsule omeprazole Yes 40 mg = 1 Me moria 40 mg oral 2-06 cap, PO, l delayed 22:03: Daily, 0 Telly n release 00 Refill(s) capsule terazosin 2 [...] 30 cap, 3 Capsule Refill(s), [Cymbalta] Pharmacy: [facility] citalopram No 0 Memoria 40 mg oral [...] CDT, 0 Glucagon No 1 mg, Memoria 8- Route: IM, l 14:30: Drug form: PDR/INJ, PRN, Dosing Weight 87.415, kg, PRN [...] Zocor) Aspirin No Notes: Do Memor ia 07-05 not crush l 10:00: or chew. (Same As: Ecotrin) Lovenox No Notes: Memoria - (Same as: l 09:30: Lovenox) cefepime No Notes: Memoria 8-25 (Same As: l 03:00: Maxipime) MEDICATION WASTE Product Size: 1000 mg Product Wasted: ___ mg Trazodone No Notes: Memori a 07-05 (Same As: l 02:00: Desyrel) Calcium No 1,000 mL, Memor ia Chloride 07-04 Rate: 100 l 0.0014 23:07: ml/hr, [place] MEQ/ML / 00 Infuse Potassium over: 10 [...] ea, PO, l powder 22:51: BID, 0 [place] 00 Refill(s) AMIODarone Yes 200 mg = 1 M emoria 200 mg oral 8-22 tab, PO, l tablet 19:30: Daily, # Jeremias 00 30 tab, 0 Refill(s), Pharmacy: [facility] Aspirin 81 Yes 81 mg = 1 Me moria MG Enteric 8-22 tab, PO, l Coated 19:30: Daily, # [place] Tablet 00 30 tab, 0 Refill(s), Pharmacy: [facility] Docusate Yes 100 mg = 1 Mem oria Sodium 100 8-22 cap, PO, l MG Oral 19:30: BID, # 60 Pilar nn Capsule 00 cap, 0 Refill(s), Pharmacy: [facility] Famotidine Yes 20 mg = 1 Me moria 20 MG Oral 8-22 tab, PO, l Tablet 19:30: BID, # 60 Telly n 00 tab, 0 Refill(s), Pharmacy: [facility] metoprolol Yes 12.5 mg = Me moria 25 mg oral 8-22 0.5 tab, l tablet, 19:30: PO, Daily, Herm jonas extended 00 # 15 tab, release 0 Refill(s), Pharmacy: [facility] polyethylen Yes See Memori a e glycol 8-22 Instructio l 3350 oral 19:30: ns, PRN Pilar nn kit 00 Constipati on, PO BID, # 30 kit, 0 Refill(s), Pharmacy: [facility] sennosides, Yes 17.2 mg = M emoria LONG TERM 8.6 MG 07-02 2 tab, PO, l Oral Tablet 19:30: Bedtime, X 14 day, # 28 tab, 0 Refill(s), Pharmacy: [facility] Amiodarone No Notes: Memor ia 07-02 (Same [...] moria 06-30 "Recommend l 21:50: ation: Use 00 an in-line filter during administra tion [...] 1 supp, Memori a adult 06-30 Route: NE, l rectal 15:03: Drug Form: Pilar nn suppository 00 SUPP, Dosing Weight 83.182, kg, Daily, PRN Constipati on, Start date: 06/30/19 10:03:00 CDT, Duration: 30 day, Stop date: 07/30/19 10:02:00 CDT, 0 Fleet Enema No 12 years, Memoria 8 Pediatric l 15:03: Dosing, 0 citalopram No 20 mg = 1 Me moria 20 mg oral 8-20 tab, PO, l tablet 14:15: Daily, # 00 30 tab, 0 Refill(s) metoprolol No Notes: Memor ia extended 8-20 (Same as: l release 14:00: Toprol XL) Herm jonas Do Not Crush Lasix No Notes: Memoria 06-29 (Same as: l 00:00: Lasix) [place] MEDICATION WASTE Product Size: 40 mg Product Wasted: ___ mg Lasix No Notes: Memoria 06-28 (Same as: l 20:52: Lasix) [place] MEDICATION WASTE Product Size: 40 mg Product Wasted: ___ mg Insulin No Notes: Memoria Lispro 06-28 (Same as: l 13:40: Humalog) Jeremias 00 Roll in palms of hands gently; Do not shake vigorously . WASTE: F/P - Black; E - Municipal Trash Bin Stable for 28 days at room temperatur e. Expires in days from ____Date Alprazolam No Notes: Memor ia 06-27 With food l 22:51: or milk Jeremias (Same as: Xanax) potassium No Notes: Memori a phosphate-s 06-27 (Same as: l odium 16:00: Phos-NaK) phosphate Each 1.5 gm pkt has 250mg phosphorou s. Mix w/2.5oz water and stir. K-Dur 10 No Notes: Memoria 06-27 (Same as: l 15:10: K-Dur 10) Jeremias 00 "Do Not Crush" With food and full glass of water LR IV 1,000 No 1,000 mL, M emoria mL 06-27 Rate: 100 l 14:52: ml/hr, [place] 00 Infuse over: 10 hr, Route: IV, Dosing Weight 83.182 kg, Total Volume: 1,000, Start date: 06/27/19 9:52:00 CDT, Duration: 30 day, Stop date: 07/27/19 9:51:00 CDT, 2, m2, 0 Reglan No Notes: Memoria 06-27 (Same as: l 14:51: Reglan) Jeremias 00 Potassium No Notes: Memori a Chloride - (Same as: l 14:51: KCL) Infuse no faster than 10 mEq/hr if given peripheral ly. sodium No Notes: Memoria phosphate - Infuse l 14:51: over 4 Jeremias 00 hour. Do not infuse phosphorou s concurrent ly in the same line as TPN or IVF that contains calcium. For double lumen central lines, phosphorou s may be infused in a separate lumen from TPN. potassium No Notes: Memori a phosphate - (Same as: l 14:51: K Jeremias Phosphate. ) Do not infuse phosphorou s [...] Oxide 06-27 (Same as: l 14:51: Mag-Ox [place] 00 400) Magnesium oxide [id number] g elemental magnesium Dose=____m g magnesium oxide (___mg elemental magnesium) Calcium No Notes: Memoria Gluconate 06-27 WASTE: F/P l 14:51: - Sink; E - Municipal Trash Bin Calcium No Notes: Memoria Carbonate 06-27 (Same As: l 500 MG 14:51: Tums) [place] Chewable 00 Calcium Tablet Carbonate 500 mg = 200 mg elemental calcium Dose = mg calcium carbonate ( mg elemental calcium) Hydralazine No Notes: Gabe carolynn 06-27 (Same as: l 07:53: Apresoline ) Push over 5 minutes Pepcid No Notes: Memoria 8-16 (Same as: l 22:00: Pepcid) Tylenol No Notes: Do Memor ia 8-16 not exceed l 15:25: 4 gm/day. Jeremias 00 (Same as: Tylenol) Dexamethaso No 10 mg, [...] CDT Norepinephr No Notes: Gabe carolynn ine 06-25 Same as: l 23:14: Levophed. Administer by either central venous catheter or peripheral ly-inserte d central catheter (PICC) line. Concentrat ion: 0.032 mg / mL Hydralazine No 10 mg, Gabe carolynn 06-25 Route: l 22:57: IVP, [place] 00 Q20Min, Dosing Weight 83.182, kg, PRN [...] Metoprolol 2019-0 No 1 mg, Memori a 06-25 Route: l 22:57: IVP, Jeremias 00 Q5Min, Dosing Weight 83.182, kg, PRN Other -See Comment, Start date: 06/25/19 17:57:00 CDT, Duration: 5 doses or times, Stop date: Limited # of times Acetaminoph 2019-0 No 1,000 mg, M emoria en 06-25 Route: l 22:57: IVPB, Drug Jeremias 00 form: INJ, ONCE, Dosing Weight 83.182, kg, PRN Pain Score 1-3, Start date: 06/25/19 17:57:00 CDT Oxycodone 2019-0 No 5 mg, Memoria Hydrochlori 06-25 Route: PO, l de 5 MG 22:57: Drug form: Herm jonas Oral Tablet 00 TAB, Q4H, Dosing Weight 83.182, kg, PRN Pain Score 4-6, Start date: 06/25/19 17:57:00 CDT, Duration: 30 day, Stop date: 07/25/19 17:56:00 CDT Fentanyl 2019-0 No 25 Memoria 15 microgram, l 22:57: Route: [place] 00 IVP, Q5Min, Dosing Weight 83.182, kg, PRN Pain Score 4-6, Priority: Routine, Start date: 06/25/19 17:57:00 CDT, Duration: 4 doses or times, Stop date: Limited # of times Hydromorpho 2019-0 No 0.5 mg, Mem oria ne 06-25 Route: l 22:57: IVP, Jeremias 00 Q5Min, Dosing Weight 83.182, kg, PRN Pain Score 7-10, Start date: 06/25/19 17:57:00 CDT, Duration: 4 doses or times, Stop date: Limited # of times Flumazenil 2019-0 No 0.2 mg, Gabe carolynn 06-25 Route: l 22:57: IVP, PRN, [place] 00 Dosing Weight 83.182, kg, PRN Benzodiaze pine Reversal, Initial dose, Start date: 06/25/19 17:57:00 CDT, Duration: 30 day, Stop date: 07/25/19 17:56:00 CDT Naloxone 2019- No 0.4 mg, Memori a 8-15 Route: l 22:57: IVP, Q2MIN, Dosing Weight 83.182, kg, PRN Narcotic Reversal, Start date: 06/25/19 17:57:00 CDT, Duration: 8 doses or times, Stop date: Limited # of times Ondansetron 2019-0 No 4 mg, Memor ia 8-15 Route: l 22:57: IVP, ONCE, Dosing Weight 83.182, kg, PRN Nausea & Vomiting, Start date: 06/25/19 17:57:00 CDT glycopyrrol No Route: IV, Memoria ate (ANES) 815 Drug form: l 22:18: INJ, ONCE, Stop date: 06/25/19 17:18:00 CDT neostigmine No Route: IV, Memoria (ANES) 8-15 Drug form: l 22:18: INJ, ONCE, Stop date: 06/25/19 17:18:00 CDT ondansetron No Route: IV, Memoria (ANES) 8-15 Drug form: l 22:18: INJ, ONCE, Stop date: 06/25/19 17:18:00 CDT Lovenox 0 No Notes: Memoria 8-15 (Same as: l 22:00: Lovenox) normal 0 No 1,000 mL, Memori a saline 0.9% 8-15 Rate: 100 l IV 1,000 mL 21:47: ml/hr, Infuse over: 10 hr, Route: IV, Dosing Weight 83.182 kg, Total Volume: 1,000, Start date: 06/25/19 16:47:00 CDT, Duration: 30 day, Stop date: 07/25/19 16:46:00 CDT, 2, m2, 0 protamine No Route: IV, Me moria (ANES) 8-15 Drug form: l 21:22: INJ, ONCE, Stop [...] 2019-0 No Route: IV, Memor ia Chloride -15 Total l 0.9% IV 17:25: Volume: [place] (ANES) 1000 00 1,000, mL Start date: 06/25/19 12:25:00 CDT, Stop date: 06/25/19 13:25:00 CDT Calcium No 1,000 mL, Memor ia Chloride 06-25 [...] date: 06/25/19 13:01:00 CDT Norepinephr No Notes: Gaeb carolynn ine 06-25 Same as: l 14:13: Levophed. Administer by [...] oria 8-14 tab, l 14:00: Route: PO, Jeremias 00 Drug form: TAB, Daily, Dosing Weight 83.182, [...] ia 8-14 (Same as: l 14:00: Prinivil, [place] Zestril) Zofran No Notes: Memoria 8-14 (Same as: l 02:46: Zofran) Jeremias 00 MEDICATION WASTE Product Size: 4 mg Product Wasted: ___ mg sennosides, No Notes: Gabe carolynn LONG TERM 8-14 (Same as: l 02:00: Senokot) Jeremias 00 200 ACTUAT No Notes: SEE M emoria Albuterol 8-14 RT l 0.09 01:00: DOCUMENTAT [place] MG/ACTUAT 00 ION (Same Metered as: Dose [...] Syringe 06-23 25 mL, l 22:52: Route: [place] 00 IVP, Drug Form: INJ, Dosing Weight 83.182, kg, PRN, PRN Blood Glucose Results, Start date: 06/23/19 17:52:00 CDT, Duration: 30 day, Stop date: 07/23/19 17:51:00 CDT, 0 Glucagon 2019-0 No 1 mg, Memoria 06-23 Route: IM, l 22:52: Drug form: PDR/INJ, [...] e. Expires in days from ____Date Oxycodone No Notes: Memori a Hydrochlori 06-23 (Same as: l de 5 MG 22:49: Roxicodone Oral Tablet ) Dextrose No 12.5 gm, [...] Stop date: 07/23/19 17:46:00 CDT, 0 Trazodone No Notes: Memori a 06-23 (Same As: l 22:47: Desyrel) Lovenox No 40 mg, Memoria 06-23 Route: l 21:00: SUB-Q, Drug form: INJ, Q24H, Dosing Weight 83.182, kg, Priority: Within 8 hours, Start date: 06/23/19 16:00:00 CDT, Duration: 30 day, Stop date: 07/22/19 16:00:00 CDT Hydralazine 2019-0 No 10 mg, Gabe carolynn 06-23 Route: l 20:27: IVP, [place] 00 Q20Min, Dosing Weight 83.182, kg, PRN Elevated BP, Start date: 06/23/19 15:27:00 CDT, Duration: 2 doses or times, Stop date: Limited # of times Labetalol 2019-0 No 10 mg, Memori a 06-23 Route: l 20:27: IVP, Jeremias 00 Q5Min, Dosing Weight 83.182, kg, PRN Elevated BP, Start date: 06/23/19 15:27:00 CDT, Duration: 5 doses or times, Stop date: Limited # of times Metoprolol 2019-0 No 1 mg, Memori a 06-23 Route: l 20:27: IVP, Jeremias 00 Q5Min, Dosing Weight 83.182, kg, PRN Other -See Comment, Start date: 06/23/19 15:27:00 CDT, Duration: 5 doses or times, Stop date: Limited # of times Acetaminoph 2019-0 No 1,000 mg, M emoria en 06-23 Route: l 20:27: IVPB, Drug [place] 00 form: INJ, ONCE, Dosing Weight 83.182, [...] 15:26:00 CDT Fentanyl 2019-0 No 25 Memoria 06-23 microgram, l 20:27: Route: [place] 00 IVP, Q5Min, Dosing Weight 83.182, kg, PRN Pain Score 4-6, Priority: Routine, Start date: 06/23/19 15:27:00 CDT, Duration: 4 doses or times, Stop date: Limited # of times Hydromorpho 2019-0 No 0.5 mg, Mem oria ne 06-23 Route: l 20:27: IVP, Jeremias 00 Q5Min, Dosing Weight 83.182, [...] Memori a 06-23 Route: l 20:27: IVP, [place] 00 Q2MIN, Dosing Weight 83.182, kg, PRN Narcotic Reversal, Start date: 06/23/19 15:27:00 CDT, Duration: 8 doses or times, Stop date: Limited # of times Ondansetron 2019-0 No 4 mg, Memor ia 06-23 Route: [...] ONCE, Stop date: 06/23/19 15:13:00 CDT vancomycin 2018-0 No Route: IV, Andriy emoria (ANES) 1000 06-23 Drug form: l mg 19:35: INJ, Start date: 06/23/19 14:35:00 CDT, Stop date: 06/23/19 15:35:00 CDT ceFAZolin No Route: IV, moria (ANES) 1000 06-23 Drug form: l mg 19:30: INJ, Start date: 06/23/19 14:30:00 CDT, Stop date: 06/23/19 15:30:00 CDT Sodium 2018- No Route: IV, Memor ia Chloride 06-23 Total l 0.9% IV 19:26: Volume: [place] (ANES) 1000 1,000, mL Start date: 06/23/19 14:26:00 CDT, Stop date: 06/23/19 15:26:00 CDT Ancef + No Notes: Memoria sterile 06-23 (Same As: l water 20 mL 16:00: Ancef, Kefzol) MEDICATION WASTE Product Size: 1000 mg Product Wasted: ___ mg Vancomycin No 2001 mg: Me moria 06-23 infuse l 16:00: over 2.5 hours For adult patients only: Round to nearest 250 mg per Medical Staff approval MEDICATION WASTE Product Size: 1000 mg Product Wasted: ___ mg Acetylcyste 0 No Notes: Gabe carolynn ine 200 06-23 SEND TO l MG/ML 16:00: PRE-OP [place] Inhalant 00 SEND TO Solution PRE-OP SEND TO PRE-OP NS 1,000 mL 0 No 1,000 mL, Andriy emoria 06-23 Rate: 150 l 15:01: ml/hr, Infuse over: 6.7 hr, Route: IV, Dosing Weight 84.545 kg, Total Volume: 1,000, Start date: 06/23/19 10:01:00 CDT, Duration: 30 day, Stop date: 07/23/19 10:00:00 CDT, 2.06, m2, 0 oxcarbazepi 2017-11 Yes 150 mg = 1 Memoria ne 150 MG 12-09 tab, PO, l Oral Tablet 20:04: Bedtime, # Jeremias [Trileptal] 00 30 tab, 3 Refill(s), Pharmacy: [facility] gabapentin 2017-11 Yes 600 mg = 1 M emoria 600 MG Oral 11-11 tab, PO, l Tablet 17:59: Daily, 0 [place] Refill(s) Citalopram 2017-11 Yes 40 mg, PO, M emoria 11-11 Daily, 0 l 17:59: Refill(s) Jeremias 00 200 ACTUAT 2017-11 Yes 2 puff, Gabe carolynn Albuterol 11-11 INHALATION l 0.09 17:59: , Q6H, 0 Jeremias MG/ACTUAT 00 Refill(s) Metered Dose Inhaler [ProAir HFA] Lactulose 2017-11 Yes 10 gm = 15 Me moria 667 MG/ML 11-11 mL, PO, l Oral 17:59: BID, 0 [place] Solution Refill(s) Omeprazole 2017-11 Yes 40 mg, PO, M emoria 11-11 Daily, 0 l 17:59: Refill(s) [place] 00 Diclofenac 2017-11 Yes PO, 0 Memori a 11-11 Refill(s) l 17:59: [place] 00 Docusate 2017-11 Yes 100 mg = 1 Mem oria Sodium 100 11-11 cap, PO, l MG Oral 17:59: Daily, 0 Telly n Capsule 00 Refill(s) Metoclopram 2017-11 Yes 10 mg, PO, Memoria geoff 11-11 BID, 0 l 17:59: Refill(s) Jeremias 00 Alprazolam 2017-11 Yes 1 mg, PO, Me moria 11-11 TID, PRN l 17:59: anxity, 0 [place] 00 Refill(s) Aspirin 2017-11 Yes 81 mg, PO, Gabe carolynn 11-11 Daily, 0 l 17:59: Refill(s) [place] 00 POLYETHYLEN 2017-11 Yes 17 gm, PO, Memoria E GLYCOL 11-11 Daily, # l 3350 142 17:59: 255 gm, 0 Herm jonas MG/ML Oral 00 Refill(s) Solution [Miralax] Trazodone 2017-11 Yes 50 mg, PO, Me moria 11-11 Bedtime, 0 l 17:59: Refill(s) [place] 00 oxyCODONE 2017-11 Yes 80 mg = [...] 11-11 Instructio l MG/MG 17:59: ns, 2 [place] Topical Gel 00 mg-4mgTOP QID affected area, 0 Refill(s) Lisinopril 2017-11 Yes 10 mg, PO, M emoria 11-11 Daily, 0 l 17:59: Refill(s) Jeremias Simvastatin 2017-11 Yes 20 mg, PO, Memoria 11-11 Daily, 0 l 17:59: Refill(s) Jeremias 00 3 ML 2017-11 Yes 600 mg, 0 Memoria Insulin 11-11 Refill(s) l Lispro 100 17:59: [place] UNT/ML Pen 00 Injector [Humalog] Ondansetron 2017-11 Yes 8 mg, PO, M emoria 11-11 Q8H, PRN l 17:59: nausea, 0 Jeremias 00 Refill(s) Reglan 2017-11 No 10 mg, PO, Memor ia 11-11 BID, 0 l 17:59: Refill(s) [place] 00 Vital Signs Vital Name Observation Time Observation Value Comments Source Systolic (mm Hg) 2020-03-16 14:30:00 Gabe rial Jeremias Diastolic (mm Hg) 2020-03-16 14:30:00 Mem orial Jeremias Heart Rate 2020-03-16 14:30:00 [facility] Jeremias Respitory Rate 2020-03-16 14:30:00 Memori al [place] Temperature Oral (F) 2020-03-16 14:30:00 98.2 F [facility] Jeremias Height 2020-03-16 14:30:00 177.8 cm [facility] Jeremias Weight 2020-03-16 14:30:00 [facility] Jeremias BMI Calculated 2020-03-16 14:30:00 Memori al [place] Systolic (mm Hg) 2019-12-17 17:47:00 Gabe rial [place] Diastolic (mm Hg) 2019-12-17 17:47:00 Mem orial [place] Heart Rate 2019-12-17 17:47:00 Memorial [place] Respitory Rate 2019-12-17 17:47:00 Memori al [place] Height 2019-12-17 17:47:00 170.18 cm [facility] Jeremias Weight 2019-12-17 17:47:00 [facility] BMI Calculated 2019-12-17 17:47:00 Memori al Jeremias Systolic (mm Hg) 2019-11-13 14:55:00 Gabe rial [place] Diastolic (mm Hg) 2019-11-13 14:55:00 Mem orial [place] Heart Rate 2019-11-13 14:55:00 Memorial [place] Respitory Rate 2019-11-13 14:55:00 Memori al Jeremias Height 2019-11-13 14:55:00 170.18 cm Memorial [place] Weight 2019-11-13 14:55:00 Memorial [place] BMI Calculated 2019-11-13 14:55:00 Memori al [place] Respitory Rate 2019-07-06 20:00:00 Memori al [place] Systolic (mm Hg) 2019-07-06 20:00:00 Gabe rial [place] Diastolic (mm Hg) 2019-07-06 20:00:00 Mem orial [place] Respitory Rate 2019-07-06 19:00:00 Memori al Jeremias Systolic (mm Hg) 2019-07-06 19:00:00 Gabe rial Jeremias Diastolic (mm Hg) 2019-07-06 19:00:00 Mem orial [place] Respitory Rate 2019-07-06 18:00:00 Memori al [place] Systolic (mm Hg) 2019-07-06 18:00:00 Gabe rial Jeremias Diastolic (mm Hg) 2019-07-06 18:00:00 Mem orial [place] Temperature Oral (F) 2019-07-06 17:00:00 98.4 F [facility] Jeremias Temperature Oral (F) 2019-07-06 13:00:00 98.6 F Memorial [place] Temperature Oral (F) 2019-07-06 09:00:00 98.1 F Memorial [place] Height 2019-07-04 22:35:00 175.26 cm [facility] Jeremias Weight 2019-07-04 22:35:00 [facility] Jeremias BMI Calculated 2019-07-04 22:35:00 Memori al Jeremias Respitory Rate 2019-07-02 20:00:00 Memori al Jeremias Systolic (mm Hg) 2019-07-02 20:00:00 Gabe rial [place] Diastolic (mm Hg) 2019-07-02 20:00:00 Mem orial Jeremias Respitory Rate 2019-07-02 19:00:00 Memori al [place] Systolic (mm Hg) 2019-07-02 19:00:00 Gabe rial [place] Diastolic (mm Hg) 2019-07-02 19:00:00 Mem orial Jeremias Respitory Rate 2019-07-02 17:00:00 Memori al [place] Systolic (mm Hg) 2019-07-02 17:00:00 Gabe rial Jeremias Diastolic (mm Hg) 2019-07-02 17:00:00 Mem orial Jeremias Temperature Oral (F) 2019-07-02 17:00:00 98.6 F [facility] Temperature Oral (F) 2019-07-02 13:00:00 98.7 F [facility] [place] Height 2019-07-02 10:02:00 170.18 cm [facility] Temperature Oral (F) 2019-07-02 09:00:00 99.2 F [facility] Height 2019-07-01 18:14:00 170.18 cm [facility] [place] Height 2019-07-01 09:16:00 170.18 cm [facility] [place] Heart Rate 2019-06-25 16:38:00 [facility] Heart Rate 2019-06-25 12:53:00 [facility] [place] Heart Rate 2019-06-25 07:51:00 [facility] [place] Weight 2019-06-23 15:01:00 [facility] [place] BMI Calculated 2019-06-23 15:01:00 [facility] BMI Calculated 2018-10-23 15:03:00 [facility] [place] Height 2018-10-23 15:03:00 177.8 cm [facility] [place] Weight 2018-10-23 15:03:00 [facility] Systolic (mm Hg) 2018-10-23 15:03:00 [facility] [place] Diastolic (mm Hg) 2018-10-23 15:03:00 [facility] Heart Rate 2018-10-23 15:03:00 [facility] BMI Calculated 2018-10-09 19:30:00 [facility] [place] Weight 2018-10-09 19:30:00 [facility] Height 2018-10-09 19:30:00 177.8 cm [facility] Respitory Rate 2018-10-09 19:30:00 [facility] [place] Heart Rate 2018-10-09 19:30:00 [facility] Systolic (mm Hg) 2018-10-09 19:30:00 [facility] Diastolic (mm Hg) 2018-10-09 19:30:00 [facility] [place] BMI Calculated 2018-09-11 16:37:00 [facility] [place] Weight 2018-09-11 16:37:00 [facility] Heart Rate 2018-09-11 16:37:00 [facility] Height 2018-09-11 16:37:00 177.8 cm [facility] Systolic (mm Hg) 2018-09-11 16:37:00 [facility] [place] Diastolic (mm Hg) 2018-09-11 16:37:00 [facility] orial [place] Procedures Procedure Date / Time Performed Performing Clinician [facility] pratima Kyphoplasty of fracture 2013-06-22 05:00:00 [facility] of lumbar spine using computed tomography (CT) guidance Bypass / graft of vein 2008-06-22 05:00:00 Randi joseph [facility] Arthroplasty of 1995-06-22 05:00:00 [facility] bruno knee<sup>1</sup> Discectomy 1986-06-22 05:00:00 [facility] Her bruno 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 [facility] [place] left hand Arthroscopy of knee 1964-06-22 05:00:00 [facility] [place] joint<sup>2</sup> Appendectomy [facility] Encounters Start End Encounter Admission Attending Care Care Encounter Source Date/Time Date/Time Type Type Clinicians Facility Department ID 2019-07-04 Inpatient U MHSE PUL [id number] 17:33:00 [facility] 2020-09-29 2020-09-29 Telephone [facility] [id number] 00:00:00 00:00:00 [facility] [id number] [place] [id number] Professio [phone] nal 044 [address] 2020-09-19 2020-09-19 Office [facility] [id number] 14:17:34 15:34:12 Visit [facility] [id number] [place] [id number] Professio [phone] nal 092 [facility] 2020-07-19 2020-07-19 Outpatient Nathen MHMISCHER MHMISCHER [id number] 10:00:00 10:00:00 Fede 00 [facility] 2020-07-19 2020-07-19 Outpatient Nathen MHMISCHER MHMISCHER [id number] 10:00:00 10:00:00 Fede 10 [facility] 2020-03-16 2020-03-16 Outpatient Nathen MHMISCHER MHMISCHER [id number] 09:15:00 23:59:59 Fede 09 Chuckie 2019-12-17 2019-12-17 Outpatient Nathen MHMISCHER MHMISCHER [id number] 11:45:00 23:59:59 Fede 08 Chuckie 2019-11-13 2019-11-13 Outpatient Nathen MHMISCHER MHMISCHER [id number] 08:45:00 23:59:59 Fede 07 Chuckie 2019-07-04 2019-07-06 Outpatient Isak, MHSE MHSE [id number] 17:33:00 16:35:00 Timoteo Hendrix 2019-06-24 2019-07-02 Outpatient Marisa MHSE MHSE [id number] 13:43:00 15:37:00 Delores Roman 2019-06-24 2019-06-23 Inpatient U MHSE MED [id number] 13:43:00 15:31:00 [facility] 2019-02-26 2019-02-26 Outpatient Nathen, MHMISCHER MHMISCHER [id number] 09:45:00 09:45:00 Fede 05 Chuckie 2018-11-20 2018-11-20 Outpatient Nathen MHMISCHER MHMISCHER [id number] 13:15:00 13:15:00 Fede 03 Chuckie 2018-10-30 2018-10-31 Outpatient MHMISCHER MHMISCHER [id number] 14:29:00 23:59:59 2018-10-23 2018-10-23 Outpatient Nathen MHMISCHER MHMISCHER [id number] 09:30:00 23:59:59 Fede 04 Chuckie 2018-10-09 2018-10-09 Outpatient Nathen MHMISCHER MHMISCHER [id number] 13:30:00 23:59:59 Fede 02 Chuckie 2018-09-26 2018-09-27 Outpatient MHMISCHER MHMISCHER [id number] 12:14:00 23:59:59 2018-09-25 2018-09-26 Outpatient MHMISCHER MHMISCHER [id number] 11:25:00 23:59:59 2018-09-16 2018-09-16 Outpatient Nathen MHMISCHER MHMISCHER [id number] 15:00:00 23:59:59 Fede Chuckie 2018-09-11 2018-09-11 Outpatient Nathen MHMISCHER MHMISCHER [id number] 11:30:00 23:59:59 Fede 00 Chuckie Results Test [...] code = MCH) 32.1 pg 27.0-31.0 [facility] VdlvkmmDMQMWOESOT4405-76-37 09:16:0033.4[facility]ann[facility]MATOLOGY 2019-07-06 09:16:0016.1[facility] YlenpmwYURSUKFHAX6849-34-16 09:16:64837Hvgxqnzv ObdoablFZUJIGLWLO2218-78-62 09:16:007.9[facility] HermannSTIMULATION STUDIES 2019-07-06 09:16:0010.8[facility] GBSSBZZ0677-02-09 16:00:00 Negative (07/05/19 11:00 AM)[facility] NBIEKFX9691-81-38 14:30:00 Product available 4(07/05/19 9:30 AM)[facility] HermannCHEM KRMMM6828-35-19 09:10:007.6[facility] HermannCHEM CWQKL2706-45-62 09:10:75234Xkeyjxcv HermannCHEM DKTYJ9753-51-31 09:10:0045[facility]annCHEM PRXEB3441-63-74 09:10:001.69 [facility]annCHEM TNUHP6544-30-61 09:10:75335Zanunuje HermannCHEM PANEL 2019-07-05 09:10:003.7[facility] HermannCHEM ZCWUY5537-41-85 09:10:36541Ivwlqgol HermannCHEM PUGTO2704-23-05 09:10:0032[facility] HermannCHEM POYLQ7188-40-28 09:10:007.6[facility] HermannCHEM JLSGX0868-05-10 09:10:008.7[facility] HermannCHEM YKTQP3849-60-14 09:10:0038[facility] HermannCHEM IHJAC5328-83-26 09:10:002.0 [facility] HermannCHEM ZNVZY7077-29-32 09:10:003.7[facility] HermannHEMATOLOGY 2019-07-05 09:10:008.6[facility] RmagfxiACEPJVVPFW0995-22-05 09:10:002.48[facility] JcapwfyJCHADCJCVM5366-99-57 09:10:008.0[facility] EgkfzbgKOROEWMHKR2073-48-88 09:10:0024.1[facility] TddbiceRJQPJJVXAO1150-99-80 09:10:0097.1[facility] [place] SGOLFMUDLQ6625-33-63 09:10:00 Test Item Value Reference Range Interpretation Comments MCH (test code = MCH) 32.2 pg 27.0-31.0 [facility] XwhgyufKZRSCCBWFZ0587-21-46 09:10:0033.2[facility] HermannHEMATOLOGY 2019-07-05 09:10:0016.5[facility] HnatibmTEXOLMZQLC8324-65-87 09:10:89242Jfsljizi LfxgoavLKLKOYVFMV9250-30-70 09:10:008.5[facility] HermannCARDIAC UHGYJDS6098-16-53 00:33:000.07[facility]annCARDIAC BXQHXOY9073-98-19 00:33:20393Dvxpyluj HermannCHEM SZPVO6881-01-43 00:33:001.9[facility] HermannCHEM MUXIY5271-76-89 00:33:003.4[facility] JuudbsvWWLQLVXHZXTI2036-41-52 00:33:009.8[facility] GIDFEECJQYLF7650-17-25 00:33:00 Test Item Value Reference Range Interpretation Comments B/C Ratio (test code = B/C Ratio) 24 1 6-25 [facility] QobiyveQRTIIRMXSVJC5922-98-48 00:33:002.3[facility] HermannELECTROLYTES 2019-07-05 00:33:00 Test Item Value Reference Range Interpretation Comments A/G Ratio (test code = A/G Ratio) 1.2 1 0.7-1.6 [facility] JpobgkqXBKIVEXCADUV6394-60-08 00:33:88951Rcfnhdam HermannELECTROLYTES 2019-07-05 00:33:0046[facility] YucgejtAUKEENAKUWDB5180-35-40 00:33:001.90[facility] FfuspprRYDOJXKSRQOB5272-19-59 00:33:16690Aigjmmlg JijeujiSRIEHATBUOPU4304-92-71 00:33:003.8[facility] AwbppkuFAFMCIKXZITJ0601-93-66 00:33:03757Dpnowdac [facility] DRCOANBTKQSX8068-78-33 00:33:0032[facility] OwctrqmEIVRBZDSQLFI7121-09-60 00:33:00 5.1[facility] LiddodoZLPBRDXXYJBN3168-56-15 00:33:002.8[facility] JLVGQIONCCTB5815-89-31 00:33:0021[facility] KbpoyqkMZPJXOWNJGNE9733-55-74 00:33:00 23[facility] FfgpcpzPDMHXHVLSKFH4164-97-55 00:33:14100Rhpyfdnt HermannELECTROLYTES 2019-07-05 00:33:001.6[facility] XrsavvnGCRLQMGZISYF0231-29-04 00:33:0033[facility] QhjscszBZGOZSZJIA3759-65-50 00:33:00 Test Item Value Reference Range Interpretation Comments INR (test code = INR) 1.16 1 0.85-1.17 [facility] RsrbergGFVBMRPSKB6223-03-75 00:33:00 Test Item Value Reference Range Interpretation Comments PT (test code = PT) 14.6 s 12.0-14.7 [facility] GgjvixnJVRFXVPZNH0205-85-12 00:33:00 Test Item Value Reference Range Interpretation Comments PTT (test code = PTT) 33.0 s 22.9-35.8 [facility] NhftochTYZTQUKWJA2245-54-70 00:33:0011.0[facility] HermannHEMATOLOGY 2019-07-05 00:33:002.89[facility] DqmnyrcOGYNUVMYSM2348-76-55 00:33:009.3[facility] NbwlwinWFJVVPRVWF9044-16-48 00:33:0027.9[facility] IjpkqchKWNSJOVQHQ0158-69-42 00:33:0096.6[facility] InxfbtwVEPDDSZVXK6153-35-23 00:33:00 Test Item Value Reference Range Interpretation Comments MCH (test code = MCH) 32.2 pg 27.0-31.0 [facility] HausfqkQPUUBCWFIV1486-54-70 00:33:0033.3[facility] HermannHEMATOLOGY 2019-07-05 00:33:0016.9[facility] SkvyndlMGCXHTOFNF7639-89-56 00:33:23036Nlyjenpx AfmcbqdMHWJWYZQLN8823-15-33 00:33:008.4[facility] AxqtjamNNYYHUKFSG5044-35-36 00:33:0066.6[facility] SktucmwHPYQXZDKEF8778-86-56 00:33:0012.6[facility] WGEVBYSNHA0000-47-74 00:33:0017.8[facility] XidivsaVKZYRCPECL1433-75-34 00:33:00 2.4[facility] YbjsommLFCFWRDZXT6080-56-20 00:33:000.6[facility] HermannHEMATOLOGY 2019-07-05 00:33:007.4[facility] EhkaatyWEULJDQGZZ3106-27-75 00:33:001.4[facility] QmeyobiHZWQIRYTTQ9463-18-25 00:33:002.0[facility] UnzamplCCEEUJWVDH3665-02-14 00:33:000.3[facility] PgpqkstLGSLBPCBGC0248-45-93 00:33:000.1[facility] HermannURINE IXEM2622-12-69 23:37:0026[facility] HermannURINE HAFN9333-45-51 23:37:20921.00 [facility] HermannCHEM EZEUO0523-90-63 16:11:63337Vhuykyjx HermannCHEM PANEL 2019-07-02 16:11:0024[facility] HermannCHEM ICICK5852-25-21 16:11:001.31[facility] HermannCHEM ZBNQW9364-06-56 16:11:46899Ccljekqu HermannCHEM YARVH0812-75-14 16:11:004.1[facility] HermannCHEM SAOMC7233-52-18 16:11:58110Yozohlds HermannCHEM VTLGG5268-34-23 16:11:0031[facility] HermannCHEM IHWEZ9289-17-41 16:11:0010.1 [facility]annCHEM KAUIF2915-58-01 16:11:008.2[facility] HermannCHEM PANEL 2019-07-02 16:11:0052[facility] HermannCHEM QYQJK9557-09-95 19:11:0092[facility] HermannCHEM HMMKL2818-37-30 19:11:0021[facility] HermannCHEM WFSTI0137-68-04 19:11:001.45[facility] HermannCHEM SJAWB8230-01-49 19:11:54777Mbvczire HermannCHEM JVBUJ7082-33-98 19:11:003.6[facility] HermannCHEM MNCFD3237-96-10 19:11:59687 [facility]annCHEM WNZLJ5448-61-33 19:11:0030[facility] HermannCHEM PANEL 2019-07-01 19:11:008.1[facility] HermannCHEM UPLPK0576-80-51 19:11:0010.6[facility] HermannCHEM GTKAQ1577-07-75 19:11:0046[facility] HermannCARDIAC BKJEEBG0132-40-04 16:38:66377Imehnmco HermannCHEM IGNSE0723-09-15 16:38:30347Bgudnlhx HermannCHEM XEJUQ3239-28-75 16:38:0016[facility] HermannCHEM RDAIG1287-37-85 16:38:001.12 [facility]annCHEM DYKMP7552-94-81 16:38:41640Xmrbunlm HermannCHEM PANEL 2019-06-30 16:38:003.9[facility] HermannCHEM NUZQZ4718-69-23 16:38:75032Pcswmopd HermannCHEM BDBLP1276-59-38 16:38:0031[facility] HermannCHEM IUBIP1970-76-66 16:38:008.1[facility] HermannCHEM PAZTM9626-58-08 16:38:005.0[facility] HermannCHEM SPNCS5840-76-61 16:38:002.6[facility] HermannCHEM CRAZE0639-82-61 16:38:0029 [facility] HermannCHEM BSPGI7770-68-77 16:38:0011[facility] HermannCHEM PANEL 2019-06-30 16:38:0092[facility] HermannCHEM NPGNM7793-96-42 16:38:001.7[facility] HermannCHEM QOEWZ1212-24-54 16:38:008.9[facility] HermannCHEM QCZTE0651-12-66 16:38:00 Test Item Value Reference Range Interpretation Comments B/C Ratio (test code = B/C Ratio) 14 1 6-25 [facility] HermannCHEM BAETR6512-77-48 16:38:002.4[facility] HermannCHEM PANEL 2019-06-30 16:38:00 Test Item Value Reference Range Interpretation Comments A/G Ratio (test code = A/G Ratio) 1.1 1 0.7-1.6 [facility] HermannCHEM XSEIX3650-49-09 16:38:0063[facility] HermannHEMATOLOGY 2019-06-30 16:38:009.0[facility] TpztupxUZMHYRCJRH1204-13-71 16:38:002.65[facility] UveezyyMEOVHOCAEF2592-15-72 16:38:008.5[facility] VsrlruhXOEUITOIMV0916-74-67 16:38:0024.6[facility] RnfqmwuYNWYUAVKOP3730-58-58 16:38:0092.6[facility] LJPOCGVJIZ9990-64-26 16:38:00 Test Item Value Reference Range Interpretation Comments MCH (test code = MCH) 32.2 pg 27.0-31.0 [facility] UfcxxwrXNQGSNFLGR3560-11-18 16:38:0034.7[facility] HermannHEMATOLOGY 2019-06-30 16:38:0014.8[facility] EgrfjheAURFFGRCWS9923-90-77 16:38:89593Qzjcmdcr DvcaigzPXOGMCEVKA7097-51-11 16:38:008.5[facility] UvngigzJRXGTKLFYN0737-13-72 18:44:009.6[facility] TrykkynLMJRTJKEXK7426-26-42 18:44:003.10[facility] [place] QSUJDHHDLA9325-20-11 18:44:0010.0[facility] PdalgaqBKKVMDWWUJ5200-72-97 18:44:00 29.0[facility] PferysqYJDOTXRGVE5568-44-89 18:44:0093.5[facility] HermannHEMATOLOGY 2019-06-29 18:44:00 Test Item Value Reference Range Interpretation Comments MCH (test code = MCH) 32.1 pg 27.0-31.0 [facility] ZffsnjmYWEIGOJPMT9033-90-01 18:44:0034.4[facility] HermannHEMATOLOGY 2019-06-29 18:44:0014.9[facility] IyjoljpUDFPZLUTFG2462-60-09 18:44:37822Zrftdlfw DseqvkqDNSZHFDTPS2744-77-30 18:44:008.6[facility] VvmenujSKGWHKJCKD1959-32-72 18:44:0067.8[facility] NdoxoivDQGGYGCAZH6533-03-08 18:44:0014.0[facility] NIEMSMQNFE5447-39-31 18:44:0015.7[facility] NjwgnmzRWHPMXPQEI0973-82-02 18:44:00 2.2[facility] QgpzmyqVHWIUZOBCV5765-12-34 18:44:000.3[facility] HermannHEMATOLOGY 2019-06-29 18:44:006.5[facility] AqbebgwVHKFCFQBDQ8086-48-62 18:44:001.3[facility] WojsrcjEOUTSBGNTV0138-62-28 18:44:001.5[facility] KrtqsmgSJMKOXMAYK9929-50-56 18:44:000.2[facility] HermannCHEM UQQZT2540-64-45 10:37:002.4[facility] HermannCHEM REPQM9919-97-34 10:37:001.5[facility] YfnzavxBVHWBINYCX0515-21-19 10:37:0061.5 [facility] EbiorkmMXFLEAXMMR0336-73-04 10:37:0018.4[facility] HermannHEMATOLOGY 2019-06-29 10:37:0017.5[facility] QytaafcVMFPMWUVVH8515-54-89 10:37:002.2[facility] IiumlluKGJCPROTEG8612-74-61 10:37:000.4[facility] PvtdttrYQJAQQKSAZ3095-49-46 10:37:005.5[facility] MtcrqokONCWEFYRYG1742-76-12 10:37:001.7[facility] CSKRHWOEPZ0588-54-41 10:37:001.6[facility] FawyeieYQPSFRZJYY4800-73-66 10:37:000.2 [facility] LyhyprhQBRKVQMPEQ6477-04-54 10:37:009.0[facility] HermannHEMATOLOGY 2019-06-29 10:37:002.54[facility] UawkmzuWRXTHHZMTT1703-07-84 10:37:008.2[facility] PjopivnKZJZTDTDKF5975-62-86 10:37:0023.3[facility] WutdmzhZHZGTHCYTP7545-58-04 10:37:0091.6[facility] CwxstqnOELVHBXIQK0537-04-58 10:37:00 Test Item Value Reference Range Interpretation Comments MCH (test code = MCH) 32.1 pg 27.0-31.0 [facility] ZskezvgGFWARJTEUP3454-29-17 10:37:0035.1[facility] HermannHEMATOLOGY 2019-06-29 10:37:0014.9[facility] PejjzsyMIEWCQZZKI4623-85-92 10:37:56514Fckataow QkjrvjcRFCKHRBCYO9245-78-75 10:37:008.0[facility] HermannBLOOD BANK RESULTS 2019-06-28 20:52:00Product available (06/28/19 3:52 PM)[facility]annBLOOD BANK NQIHOFA4780-10-82 20:11:00Product available 4(06/28/19 3:11 PM)[facility] [place] BLOOD BANK TASNNGR4781-29-20 13:27:00Negative (06/28/19 8:27 AM)[facility] BLOOD BANK TTSFLAY6562-13-31 13:05:00Product available 5(06/28/19 8:05 AM) [facility] HermannCHEM UUCIT1725-21-52 10:38:002.0[facility] HermannCHEM PANEL 2019-06-28 10:38:002.6[facility] CqffefdJRDXQTQXWV6271-25-40 10:38:0070.8[facility] PdaawbsCOUUVCTKTD4518-39-80 10:38:0013.5[facility] MzmhutdYWPFHDQRLK6879-72-70 10:38:0015.1[facility] PygjuwaBXRZRDSEOX3390-38-26 10:38:000.5[facility] XSYZRUGDRJ6360-53-69 10:38:000.1[facility] PmkqrmwSRTODJDDYO5994-96-16 10:38:009.3 [facility] BxcfaszCYHWOASGEA2375-10-47 10:38:001.8[facility] HermannHEMATOLOGY 2019-06-28 10:38:002.0[facility] JnvcxbgMCFGDLEXKW6646-71-48 10:38:000.1[facility] HermannCHEM JYTTE4220-85-29 23:14:002.2[facility] HermannCHEM HWKXD2624-10-02 23:14:003.3[facility] HermannCARDIAC YKOXUDD5872-35-23 23:30:000.03[facility] HermannPARATHYROID MYCRLDT7990-75-71 19:47:001.08[facility] HermannPARATHYROID IMZGOHK1124-06-32 19:47:001.10[facility] HermannBLOOD BANK VOWGXKM6678-29-59 16:13:00Negative (06/23/19 11:13 AM)[facility] UtqpizxXGWCHUMKEB1082-07-01 16:13:00 Test Item Value Reference Range Interpretation Comments INR (test code = INR) 1.17 1 0.85-1.17 [facility] IbnnuopCPSUGNFTVU1222-90-54 16:13:00 Test Item Value Reference Range Interpretation Comments PT (test code = PT) 14.7 s 12.0-14.7 [facility] BjuatbmJRWRFPZSEO5670-46-39 16:13:00 Test Item Value Reference Range Interpretation Comments PTT (test code = PTT) 30.8 s 22.9-35.8 [facility]GE3565-[facility]-20 16:13:000.1[facility] [place]
[2020-10-05 08:52] LABS: Absolute Lymphocytes (CBC) 1.6 K/uL (0.7-4.9); Basophils % 0.7 % (0-1.3); Hematocrit 29.3 % (39.6-49.0); Lymphocytes % 24.9 % (15.3-44.8); MPV 8.8 fL (7.6-11.3); RBC Red Blood Cell Count 3.13 M/uL (4.33-5.43)
[2020-10-05 08:54] LABS: Protime INR 1.04
[2020-10-05 09:07] LABS: ALT/SGPT 12 U/L (12-78); AST/SGOT 14 U/L (15-37); Alkaline Phosphatase 108 U/L (45-117); BUN Blood Urea Nitrogen 23 mg/dL (7-18); Bicarbonate 33 mmol/L (21-32); Bilirubin Direct 0.2 mg/dL (0-0.2); Bilirubin Total 0.5 mg/dL (0.2-1.0); Glucose Level 121 mg/dL (74-106); Magnesium 2.5 mg/dL (1.8-2.4); NT PRO-BNP 2193 pg/mL (<450); Potassium 4.4 mmol/L (3.5-5.1); Protein, Total 6.4 g/dL (6.4-8.2); Sodium Level 140 mmol/L (136-145); Troponin (Emerg Dept Use Only) < 0.02 ng/mL (0.0-0.045)
--- NOTE | 2020-10-05 09:39 | RAD REPORT ---
EXAM DESCRIPTION: Roxane Single View10/05/2020 8:55 am CLINICAL HISTORY: Abdominal pain COMPARISON: September 27, 2020 FINDINGS: Bilateral interstitial opacities appear chronic. The lungs appear clear of acute infiltrate. The heart is normal size
--- NOTE | 2020-10-05 09:39 | RAD REPORT ---
EXAM DESCRIPTION: CT - Abdomen Pelvis Wo Contrast - 10/05/2020 9:22 am CLINICAL HISTORY: Abdominal pain COMPARISON: 2019 TECHNIQUE: Computed axial tomography of the abdomen and pelvis was obtained. IV and oral contrast we re not requested. All CT scans are performed using dose optimization technique as appropriate and may include automated exposure control or mA/KV adjustment according to patient size. FINDINGS: The evaluation of solid organs, vessels and bowel is limited secondary to the lack of con trast administration. Chronic appearing interstitial lung opacities. The liver, spleen, pancreas, adrenals and kidneys appear grossly normal. A aortobifemoral graft. Vascular calcifications. Neurostimulator device unchanged in position There is no evidence of diverticulitis. Moderate amount of stool within the colon. Cholecystectomy IMPRESSION: Moderate amount stool within the colon
--- NOTE | 2020-10-05 10:13 | ER ---
Nurse's Notes [facility] Name: Mahnaz Baptiste Age: 80 yrs Sex: Male : 1940 Arrival Date: 10/05/2020 Time: 07:57 Bed 20 Private MD: Barrington Merrill S Diagnosis: Epigastric pain;Chest pain, unspecified Presentation: 10/05 08:09 Chief complaint: Patient states: epigastric pain for 4-5 days, reports worse when em swallowing, denies N/V fever, was tested for covid 19 on 09/27/20 and was neg. Coronavirus screen: The client reports previous COVID testing was negative. Date of collection: September 27, 2020. Ebola Screen: Patient negative for fever greater than or equal to 101.5 degrees Fahrenheit, and additional compatible Ebola Virus Disease symptoms Patient denies exposure to infectious person. Patient denies travel to an Ebola-affected area in the 21 days before illness onset. No symptoms or risks identified at this time. Initial Sepsis Screen: Does the patient meet any 2 criteria? No. Patient's initial sepsis screen is negative. Does the patient have a suspected source of infection? No. Patient's initial sepsis screen is negative. Risk Assessment: Do you want to hurt yourself or someone else? Patient reports no desire to harm self or others. Onset of symptoms was September 30, 2020. 08:09 Method Of Arrival: Wheelchair em 08:09 Acuity: ZIA 3 em Historical: - Allergies: 08:17 Morphine; em - PMHx: 08:17 Chronic pain; Hypertension; Myocardial infarction; neuropathy; em - PSHx: 08:17 Knee surgery; Fentanyl Pain Pump; AMPUTATED FINGER; Left leg bypass; Heart stents; BACK em SURGERY x 5; - Immunization history:: Adult Immunizations unknown. - Social history:: Smoking status: Patient denies any tobacco usage or history of. Patient/guardian denies using alcohol, street drugs, The patient lives with family. - Family history:: not pertinent. - Hospitalizations: : No recent hospitalization is reported. Screenin:06 Abuse screen: Denies threats or abuse. Nutritional screening: No deficits noted. em Tuberculosis screening: No symptoms or risk factors identified. Fall Risk None identified. Assessment: 08:07 General: Appears in no apparent distress. uncomfortable, Behavior is calm, cooperative, em appropriate for age, Denies fever. Pain: Complains of pain in epigastric area Pain currently is 8 out of 10 on a pain scale. Neuro: Level of Consciousness is awake, alert, obeys commands, Oriented to person, place, time, situation. Cardiovascular: Denies chest pain, Patient's skin is warm and dry. Rhythm is atrial fibrillation. Respiratory: Airway is patent Respiratory effort is even, Respiratory pattern is regular, symmetrical, Denies cough, shortness of breath. GI: Abdomen is flat, Patient currently denies nausea, vomiting. Derm: Skin is intact, is fragile, is thin, Skin is pink, warm \T\ dry. Musculoskeletal: Capillary refill < 3 seconds, Range of motion: intact in all extremities. 11:10 Reassessment: Patient appears in no apparent distress at this time. Patient and/or ll1 family updated on plan of care and expected duration. Pain level reassessed. Patient is alert, oriented x 3, equal unlabored respirations, skin warm/dry/pink. 12:10 Reassessment: Patient appears in no apparent distress at this time. pt ambulated to em restroom with steady gait. Vital Signs: 08:09 BP 146 / 62; Pulse 69; Resp 18; Temp 98.4(O); Pulse Ox 94% on R/A; Weight 79.38 kg; em Height 5 ft. 10 in. (177.80 cm); Pain 8/10; 10:30 BP 95 / 45; Pulse 41; Resp 18; Pulse Ox 100% on 2 lpm NC; em 12:08 BP 120 / 52; Pulse 54; Resp 18; Pulse Ox 100% on 2 lpm NC; em 08:09 Body Mass Index 25.11 (79.38 kg, 177.80 cm) em ED Course: 07:57 Patient arrived in ED. as 07:58 Barrington Merrill MD is Private Physician. as 08:00 Blayne Lawson, KISHOR is Primary Nurse. em 08:00 Wilver Ramos MD is Attending Physician. ma2 08:06 Patient has correct armband on for positive identification. Placed in gown. Bed in low em position. Call light in reach. Side rails up X2. Adult w/ patient. teletypesetter monitor on. Pulse ox on. NIBP on. 08:14 Triage completed. em 08:17 Arm band placed on. em 08:24 EKG done, by ED staff, reviewed by Wilver Ramos MD. dh3 08:30 Initial lab(s) drawn, by me, sent to lab. Inserted saline lock: 20 gauge in left em antecubital area, using aseptic technique. Blood collected. 08:55 XRAY Chest (1 view) In Process Unspecified. EDMS 09:[address] via stretcher. jj2 09:22 Abdomen In Process Unspecified. EDMS 09:23 CT completed. Patient tolerated procedure well. jj2 10:12 Jamie Mane MD is Hospitalizing Provider. ma2 13:10 No provider procedures requiring assistance completed. Patient admitted, IV remains in em place. Administered Medications: 08:30 Drug: NS 0.9% 500 ml Route: IV; Rate: 1 bolus; Site: left antecubital; em 11:15 Follow up: IV Status: Completed infusion; IV Intake: 500ml em 08:45 Drug: GI Cocktail without - (Maalox Suspension 30 ml, Lidocaine Liquid 2 % 15 em ml) Route: PO; 11:16 Follow up: Response: No adverse reaction; No change in condition em 08:46 Drug: Pepcid 20 mg Route: IVP; Site: left antecubital; em 11:17 Follow up: Response: No adverse reaction em 08:48 Drug: Zofran (Ondansetron) 4 mg Route: IVP; Site: left antecubital; em 11:16 Follow up: Response: No adverse reaction em 13:00 Not Given (Physician Discretion): Dilaudid 1 mg IVP once; RASS on ADMIN: Combtv4, Very em Agttd3, Agttd2, Rstlss1, AlertClm0, Drwsy-1, Lt Sdtn-2, Mod Sdtn-3, Dp Sdtn-4, UnArsble-5 Intake: 11:15 IV: 500ml; Total: 500ml. em Outcome: 10:13 Decision to Hospitalize by Provider. ma2 13:10 Admitted to Med/surg accompanied by nurse, via wheelchair, room 209, Report called to em KISHOR Stock 13:10 Condition: good 13:10 Instructed on the need for admit, Demonstrated understanding of instructions. 13:12 Patient left the ED. em Signatures: Dispatcher [employer] Khanna Edgar, RN RN Viri Herring [facility]anna [facility] Wilver Ramos MD MD dc2 Joy Gonzales RN RN ll1
--- NOTE | 2020-10-05 10:13 | EDPHYS ---
Physician Documentation [facility] Name: Mahnaz Baptiste Age: 80 yrs Sex: Male : 1940 Arrival Date: 10/05/2020 Time: 07:57 Bed 20 Private MD: Barrington Merrill S ED Physician Wilver Ramos HPI: 10/05 08:23 This 80 yrs old Male presents to ER via Wheelchair with complaints of ma2 Epigastric Pain. 08:23 The patient presents with abdominal pain in the epigastric area. Onset: The ma2 symptoms/episode began/occurred gradually, 3 hour(s) ago. Associated signs and symptoms: Pertinent negatives: anorexia, blood in stools, diarrhea, dysuria, headache. Modifying factors: the symptoms are aggravated by breathing deeply, food, spicy food. Severity of pain: At its worst the pain was moderate in the emergency department the pain is unchanged. The patient has not experienced similar symptoms in the past. Historical: - Allergies: 08:17 Morphine; em - PMHx: 08:17 Chronic pain; Hypertension; Myocardial infarction; neuropathy; em - PSHx: 08:17 Knee surgery; Fentanyl Pain Pump; AMPUTATED FINGER; Left leg bypass; Heart stents; BACK em SURGERY x 5; - Immunization history:: Adult Immunizations unknown. - Social history:: Smoking status: Patient denies any tobacco usage or history of. Patient/guardian denies using alcohol, street drugs, The patient lives with family. - Family history:: not pertinent. - Hospitalizations: : No recent hospitalization is reported. ROS: 08:23 Constitutional: Negative for fever, chills, and weight loss. ma2 08:23 All other systems are negative. Exam: 08:23 Constitutional: This is a well developed, well nourished patient who is awake, alert, ma2 and in no acute distress. Head/Face: Normocephalic, atraumatic. Eyes: Pupils equal round and reactive to light, extra-ocular motions intact. Lids and lashes normal. Conjunctiva and sclera are non-icteric and not injected. Cornea within normal limits. Periorbital areas with no swelling, redness, or edema. ENT: Nares patent. No nasal discharge, no septal abnormalities noted. Tympanic membranes are normal and external auditory canals are clear. Oropharynx with no redness, swelling, or masses, exudates, or evidence of obstruction, uvula midline. Mucous membranes moist. Neck: Trachea midline, no thyromegaly or masses palpated, and no cervical lymphadenopathy. Supple, full range of motion without nuchal rigidity, or vertebral point tenderness. No Meningismus. Chest/axilla: Normal chest wall appearance and motion. Nontender with no deformity. No lesions are appreciated. Cardiovascular: Regular rate and rhythm with a normal S1 and S2. No gallops, murmurs, or rubs. Normal PMI, no JVD. No pulse deficits. Respiratory: Lungs have equal breath sounds bilaterally, clear to auscultation and percussion. No rales, rhonchi or wheezes noted. No increased work of breathing, no retractions or nasal flaring. Abdomen/GI: Soft, non-tender, with normal bowel sounds. No distension or tympany. No guarding or rebound. No evidence of tenderness throughout. Back: No spinal tenderness. No costovertebral tenderness. Full range of motion. Skin: Warm, dry with normal turgor. Normal color with no rashes, no lesions, and no evidence of cellulitis. MS/ Extremity: Pulses equal, no cyanosis. Neurovascular intact. Full, normal range of motion. Neuro: Awake and alert, GCS 15, oriented to person, place, time, and situation. Cranial nerves II-XII grossly intact. Motor strength 5/5 in all extremities. Sensory grossly intact. Cerebellar exam normal. Normal gait. Psych: Awake, alert, with orientation to person, place and time. Behavior, mood, and affect are within normal limits. Vital Signs: 08:09 BP 146 / 62; Pulse 69; Resp 18; Temp 98.4(O); Pulse Ox 94% on R/A; Weight 79.38 kg; em Height 5 ft. 10 in. (177.80 cm); Pain 8/10; 10:30 BP 95 / 45; Pulse 41; Resp 18; Pulse Ox 100% on 2 lpm NC; em 12:08 BP 120 / 52; Pulse 54; Resp 18; Pulse Ox 100% on 2 lpm NC; em 08:09 Body Mass Index 25.11 (79.38 kg, 177.80 cm) em MDM: 08:00 Patient medically screened. ma 08:23 Differential diagnosis: diverticulitis, gastritis, gastroesophageal reflux disease, ma2 Peritonitis, Prostatitis. Data reviewed: vital signs, nurses notes. Counseling: I had a detailed discussion with the patient and/or guardian regarding: the historical points, exam findings, and any diagnostic results supporting the discharge/admit diagnosis, the presence of at least one elevated blood pressure reading (>120/80) during this emergency department visit, the need for outpatient follow up. 10/05 08:13 Order name: Basic Metabolic Panel; Complete Time: 09:17 co10/05 08:13 Order name: CBC with Diff; Complete Time: 09:17 co10/05 08:13 Order name: LFT's; Complete Time: 09: co10/05 08:13 Order name: Magnesium; Complete Time: 09:10/05 08:13 Order name: NT PRO-BNP; Complete Time: 09: co10/05 08:13 Order name: PT-INR; Complete Time: 09: co10/05 08:13 Order name: Troponin (emerg Dept Use Only); Complete Time: 09: co10/05 08:13 Order name: XRAY Chest (1 view); Complete Time: 09:49 ma2 10/05 09:11 Order name: Abdomen ; Complete Time: 09:49 EDMS 10/05 08:13 Order name: EKG; Complete Time: 08:14 10/05 08:13 Order name: Cardiac monitoring; Complete Time: 08:41 co10/05 08:13 Order name: EKG - Nurse/Tech; Complete Time: 08:18 10/05 08:13 Order name: IV Saline Lock; Complete Time: 08:41 10/05 08:13 Order name: Labs collected and sent; Complete Time: 08:41 co10/05 08:13 Order name: O2 Per Protocol; Complete Time: 08:41 10/05 08:13 Order name: O2 Sat Monitoring; Complete Time: 08:41 ma Administered Medications: 08:30 Drug: NS 0.9% 500 ml Route: IV; Rate: 1 bolus; Site: left antecubital; em 11:15 Follow up: IV Status: Completed infusion; IV Intake: 500ml em 08:45 Drug: GI Cocktail without - (Maalox Suspension 30 ml, Lidocaine Liquid 2 % 15 em ml) Route: PO; 11:16 Follow up: Response: No adverse reaction; No change in condition em 08:46 Drug: Pepcid 20 mg Route: IVP; Site: left antecubital; em 11:17 Follow up: Response: No adverse reaction em 08:48 Drug: Zofran (Ondansetron) 4 mg Route: IVP; Site: left antecubital; em 11:16 Follow up: Response: No adverse reaction em 13:00 Not Given (Physician Discretion): Dilaudid 1 mg IVP once; RASS on ADMIN: Combtv4, Very em Agttd3, Agttd2, Rstlss1, AlertClm0, Drwsy-1, Lt Sdtn-2, Mod Sdtn-3, Dp Sdtn-4, UnArsble-5 Disposition: 10/05/20 10:13 Hospitalization ordered by Jamie Mane for Observation. Preliminary diagnosis are Epigastric pain, Chest pain, unspecified. - Bed requested for Telemetry/MedSurg (observation). - Status is Observation. em - Condition is Stable. - Problem is new. - Symptoms are unchanged. Signatures: Dispatcher [employer] EDVT Jeriac Gonzales RN RN kl Munoz, Edgar, RN RN Wilver Ramos MD MD ma2 Corrections: (The following items were deleted from the chart) 09:11 08:14 Abdomen Pelvis W Con+CT.RAD.BRZ ordered. EDVT EDVT 12:20 10:13 Hospitalization Ordered by Jamie Mane MD for Observation. Preliminary kl diagnosis is Epigastric pain; Chest pain, unspecified. Bed requested for Telemetry/MedSurg (observation). Status is Observation. Condition is Stable. Problem is new. Symptoms are unchanged. ma2 13:12 12:20 10/05/2020 10:13 Hospitalization Ordered by Jamie Mane MD for Observation. em Preliminary diagnosis is Epigastric pain; Chest pain, unspecified. Bed requested for Telemetry/MedSurg (observation). Status is Observation. Condition is Stable. Problem is new. Symptoms are unchanged. kl
--- NOTE | 2020-10-05 11:39 | P.HP ---
Certification for Inpatient Patient admitted to: Observation With expected LOS: <2 Midnights Practitioner: I am a practitioner with admitting privileges, knowledge of patient current condition, hospital course, and medical plan of care. Services: Services provided to patient in accordance with Admission requirements found in Title 42 Section 412.3 of the Code of Federal Regulations Patient History Date of Service: 10/05/20 Reason for admission: Epigastric pain History of Present Illness: 80-year-old, PMH: HTN, DM 2 (insulin dependent), CAD s/p stents, chronic pain who presents to the ED due to moderate epigastric pain that began yesterday. He reports pain occurs while he eating or drinking anything. He denies any chest pain or chest pressure. He reports some history of acid reflux with intermittent use of omeprazole as needed. He reports a prior history of sounds like esophageal stricture that required "stretching" 2 or 3 times in the past. He states he has had EGDs in the past and never told he has a gastric ulcer. He also endorses some recent constipation and now having very small leakage of stool for the past 2-3 days. Workup in the ED notable for stable hemoglobin (chronic anemia), elevated creatinine of 1.61 which appears to be at his baseline, negative troponin, elevated BNP (2193), CXR with chronic bilateral interstitial opacities. CT abdomen/pelvis: With moderate amount of stool within the colon. Allergies morphine Allergy (Verified 10/05/20 13:36) Shortness of breath Home Medications: Alprazolam [Xanax] 1 mg PO TID PRN 10/05/20 Gabapentin 600 mg PO BEDTIME 10/05/20 Metoclopramide [Reglan*] 10 mg PO BID PRN 10/05/20 Metoprolol Succinate [Toprol Xl*] 12.5 mg PO DAILY 10/05/20 Omeprazole 40 mg PO PRN PRN 10/05/20 Ondansetron [Zuplenz] 8 mg PO Q4H PRN 10/05/20 Oxycodone HCl [Oxycontin] 80 mg PO TID PRN 10/05/20 Simvastatin 20 mg PO BEDTIME 10/05/20 Trazodone HCl 100 mg PO BEDTIME 10/05/20 - Past Medical/Surgical History Diabetic: Yes -: Chronic pain -: HTN -: CAD -: DM -: Arthritis -: Depression -: Hyperlipidemia -: GERD -: Cardiac stent x3 -: Bilateral fempops -: Knee replacement right knee -: Spinal surgery -: Appendectomy -: Cholecystectomy -: Partial amputation left index finger - Family History Family History: Reviewed- Non-Contributory - Social History Smoking Status: Never smoker Alcohol use: No Place of Residence: Home Review of Systems 10-point ROS is otherwise unremarkable Physical Examination - Physical Exam General: Alert, In no apparent distress, Oriented x3 HEENT: Sclerae nonicteric Respiratory: Clear to auscultation bilaterally Cardiovascular: No edema, Regular rate/rhythm Gastrointestinal: Soft and benign, Non-distended, Tenderness (Epigastrium, moderate) Musculoskeletal: No tenderness Integumentary: Skin lesion (Left lower extremity, posterior aspect, but appears black eschar ~ 3 cm diameter) Neurological: Normal speech, Normal affect - Studies Laboratory Data (last 24 hrs) 10/05/20 08:30: PT 12.3, INR 1.04 10/05/20 08:30: WBC 6.4, Hgb 10.1 L, Hct 29.3 L, Plt Count 137 L 10/05/20 08:30: Sodium 140, Potassium 4.4, BUN 23 H, Creatinine 1.61 H, Glucose 121 H, Magnesium 2.5 H, Total Bilirubin 0.5, AST 14 L, ALT 12, Alkaline Michelle sphatase 108 Assessment and Plan - Advance Directives Does patient have a Living Will: No Does patient have a Durable POA for Healthcare: No Physician Review Additional Text: Epigastric pain DM 2, insulin dependent Hypertension CAD s/p stents LLE chronic wound GERD Chronic pain -epigastric pain consistent/concerning for acute gastritis/possible gastric ulcer since this pain occurs when eating food or drinking anything -pain improved in the ED with GI cocktail -start Protonix b.i.d., Carafate, clear liquid diet for now -patient will leakage of stool likely due to his constipation (encopresis), agreeable to enema - states has needed this in the past -obtain home medications and resume as appropriate, PDMP reviewed, no red flags, will continue OxyContin 80 mg b.i.d. -left lower extremity wound-patient follows with wound clinic, recently seen this week by Dr. Campbell, can continue wet-to-dry dressings, does not appear infected VTE: ambulatory Code: full Dispo: Anticipate discharge home, likely in 24 hr after improvement of epigastric pain and BM Time Spent Managing Pts Care (In Minutes): 55
[2020-10-05] MEDS ORDERED: ONDANSETRON 4 MG/2 ML VIAL IV PRN (13:32)
[2020-10-05] MEDS ORDERED: FLEET ENEMA ADULT PR ONE (14:00)
[2020-10-05 14:50] VITALS: BMI 26.6
[2020-10-05] MEDS: PANTOPRAZOLE 40MG TABLET PO SCH (15:39)
[2020-10-05] MEDS ORDERED: INFLUENZA VACCINE (for 3y+) 0.5 ML DOSE IMVAC ONE (16:00)
[2020-10-05] MEDS: INSULIN -REGULAR HUMAN 50 UNIT/0.5 ML ML SQ SCH ×2 (16:02→20:28)
[2020-10-05] MEDS: SUCRALFATE 1GM/10ML UCUP PO SCH ×2 (16:50→20:16)
[2020-10-05] MEDS ORDERED: OXYCODONE *CR* 20 MG TAB PO ONE (20:05)
[2020-10-05] MEDS ORDERED: GABAPENTIN 300 MG CAP PO ONE (20:06)
[2020-10-05] MEDS ORDERED: ATORVASTATIN 10 MG TAB PO ONE (20:07)
[2020-10-05] MEDS ORDERED: OXYCODONE 80 MG PO SCH (21:00)
[2020-10-06 03:52] LABS: Absolute Lymphocytes (CBC) 1.6 K/uL (0.7-4.9); Basophils % 0.9 % (0-1.3); Hematocrit 28.3 % (39.6-49.0); Lymphocytes % 28.3 % (15.3-44.8); MPV 9.1 fL (7.6-11.3); RBC Red Blood Cell Count 3.01 M/uL (4.33-5.43)
[2020-10-06 04:00] LABS: Albumin 2.9 g/dL (3.4-5.0); Bilirubin Total 0.4 mg/dL (0.2-1.0); Magnesium 2.4 mg/dL (1.8-2.4); Phosphorus 3.4 mg/dL (2.5-4.9); Potassium 4.9 mmol/L (3.5-5.1); Protein, Total 6.3 g/dL (6.4-8.2)
[2020-10-06] MEDS: INSULIN -REGULAR HUMAN 50 UNIT/0.5 ML ML SQ SCH (07:30)
[2020-10-06] MEDS: SUCRALFATE 1GM/10ML UCUP PO SCH (08:21)
[2020-10-06] MEDS: PANTOPRAZOLE 40MG TABLET PO SCH (08:22)
[2020-10-06 08:25] VITALS: BP 138/62; TEMP 97.3
[2020-10-06 08:40] VITALS: O2SAT 97
--- NOTE | 2020-10-06 13:33 | P.DS ---
Admission Date: 10/05/20 Discharge Date: 10/06/20 Disposition: ROUTINE DISCHARGE Discharge Condition: GOOD Reason for Admission: Epigastric pain Procedures: CT Abd/pelvis (10/05): Moderate amount stool within the colon CXR (10/05): Bilateral interstitial opacities appear chronic. The lungs appear clear of acute infiltrate. The heart is normal size Problem list: Gastritis vs gastric ulcer DM 2, insulin dependent Hypertension CAD s/p stents LLE chronic wound GERD Chronic pain Brief History of Present Illness: 80-year-old, PMH: HTN, DM 2 (insulin dependent), CAD s/p stents, chronic pain who presents to the ED due to moderate epigastric pain that began the day prior. He reports pain occurred while he eating or drinking anything. He denied any chest pain or chest pressure. He reports some history of acid reflux with intermittent use of omeprazole as needed. He also reported some recent constipation and now having very small leakage of stool for the past 2-3 days. Workup in the ED notable for stable hemoglobin (chronic anemia), elevated creatinine of 1.61 which appears to be at his baseline, negative troponin, elevated BNP (2193), CXR with chronic bilateral interstitial opacities. CT abdomen/pelvis: With moderate amount of stool within the colon. Hospital Course: Patient's pain improved with GI cocktail in the ED and was treated with BID protonix and carafate. He had significant improvement and resolution of his pain the following morning - tolerated full liquid diet. He was discharged home with 40mg BID protonix and to f/u with his PCP. To consider EGD in near future to eval for gastric ulcer. Vital Signs/Physical Exam: Temp Pulse Resp BP Pulse Ox 97.3 F 79 18 138/62 97 10/06/20 08:00 10/06/20 08:00 10/06/20 08:00 10/06/20 08:00 10/06/20 08:00 General: Alert, In no apparent distress, Oriented x3 HEENT: Sclerae nonicteric Respiratory: Clear to auscultation bilaterally, Normal air movement Cardiovascular: No edema, Regular rate/rhythm Gastrointestinal: Soft and benign, Non-distended, No tenderness Musculoskeletal: No tenderness Neurological: Normal speech, Normal affect Laboratory Data at Discharge: WBC 5.8 K/uL (4.3-10.9) 11/26/20 03:20 Hgb 9.8 g/dL (13.6-17.9) L 10/06/20 03:20 Hct 28.3 % (39.6-49.0) L 10/06/20 03:20 Plt Count 127 K/uL (152-406) L 10/06/20 03:20 PT 12.3 SECONDS (9.5-12.5) 10/05/20 08:30 INR 1.04 10/05/20 08:30 Sodium 141 mmol/L (136-145) 10/06/20 03:20 Potassium 4.9 mmol/L (3.5-5.1) 10/06/20 03:20 BUN 20 mg/dL (7-18) H 10/06/20 03:20 Creatinine 1.51 mg/dL (0.55-1.3) H 10/06/20 03:20 Glucose 146 mg/dL (74-106) H 10/06/20 03:20 Phosphorus 3.4 mg/dL (2.5-4.9) 10/06/20 03:20 Magnesium 2.4 mg/dL (1.8-2.4) 10/06/20 03:20 Total Bilirubin 0.4 mg/dL (0.2-1.0) 10/06/20 03:20 AST 16 U/L (15-37) 10/06/20 03:20 ALT 11 U/L (12-78) L 10/06/20 03:20 Alkaline Phosphatase 114 U/L (45-117) 10/06/20 03:20 Home Medications: Alprazolam [Xanax] 1 mg PO TID PRN 10/05/20 Gabapentin 600 mg PO BEDTIME 10/05/20 Metoclopramide [Reglan*] 10 mg PO BID PRN 10/05/20 Metoprolol Succinate [Toprol Xl*] 12.5 mg PO DAILY 10/05/20 Ondansetron [Zuplenz] 8 mg PO Q4H PRN 10/05/20 Oxycodone HCl [Oxycontin] 80 mg PO TID PRN 10/05/20 Simvastatin 20 mg PO BEDTIME 10/05/20 Trazodone HCl 100 mg PO BEDTIME 10/05/20 Pantoprazole [Protonix Tab*] 40 mg PO BID 30 Days #60 tab 10/06/20 New Medications: Pantoprazole [Protonix Tab*] 40 mg PO BID 30 Days #60 tab Patient Discharge Instructions: follow up with PCP as scheduled on Saturday - discuss potential EGD in near future to evaluate for gastric ulcer. medication changed: omeprazole to pantoprazole 40mg twice a day for 1 month Diet: ADA (avoid spicy foods) Activity: Ad adolph Followup: Barrington Merrill MD [Primary Care Provider] - Time spent managing pt's care (in minutes): 35
== END 2020-10-06 08:35 | disposition home or self-care (01) ==
LOC: ER 07:55 → ERHOLD 11:46 → 2ND 12:39
PROVIDERS: ADMIT Hospitalist; ATTEND Hospitalist
DX: R10.13 Epigastric pain (principal); E11.622 Type 2 diabetes mellitus with other skin ulcer; Z79.4 Long term (current) use of insulin; I10 Essential (primary) hypertension; I25.10 Atherosclerotic heart disease of native coronary artery without angina pectoris; Z95.5 Presence of coronary angioplasty implant and graft; K21.9 Gastro-esophageal reflux disease without esophagitis; G89.29 Other chronic pain; M19.90 Unspecified osteoarthritis, unspecified site; F32.9 Major depressive disorder, single episode, unspecified; E78.5 Hyperlipidemia, unspecified; Z96.651 Presence of right artificial knee joint; Z89.022 Acquired absence of left finger(s); L97.929 Non-pressure chronic ulcer of unspecified part of left lower leg with unspecified severity; R94.31 Abnormal electrocardiogram [ECG] [EKG]
CPT/HCPCS: 96361; 93005 ×2; 87070; 85025 ×2; 80048; 36415; 83735 ×2; 87205; 84100; 85610; 82947 ×4; 80076; 87077; 87186; 84484; 82553 ×3; 80053; 83880; 74176; 71045; 94760 ×3; 96375; 96374; 99285; J7040; J2405; G0378

== ENCOUNTER 2020-10-31 09:05 | Emergency (ER) | payer BC, OTHER ==
[2020-10-31 09:45] LABS: Absolute Lymphocytes (CBC) 1.1 K/uL (0.7-4.9); Basophils % 0.5 % (0-1.3); Hematocrit 32.3 % (39.6-49.0); Lymphocytes % 15.2 % (15.3-44.8); RBC Red Blood Cell Count 3.38 M/uL (4.33-5.43)
[2020-10-31 09:49] LABS: Protime INR 1.03
[2020-10-31] MEDS ORDERED: NA CHLORIDE 0.9% 0 ML ONE (09:51)
[2020-10-31] MEDS ORDERED: FENTANYL CITR 100 MCG/2 ML ONE (09:51)
[2020-10-31] MEDS ORDERED: ONDANSETRON 4 MG/2 ML VIAL ONE (09:52)
[2020-10-31 09:57] LABS: Potassium 4.4 mmol/L (3.5-5.1)
--- OUTSIDE RECORDS SUMMARY | 2020-10-31 10:07 | XMS REPORT | Continuity of Care Document ---
:1940 Author Organization [employer] [facility] Care Team Providers Name Role Phone [employer] Unavailable Un available Problems Problem [...] for Women Peripheral nerve Active Problem 07/21/2020 [place] disease (disorder) N euro, [place] Dehydration 07/08/2019 [facility] Chronic pain Resolved Problem 07/21/2020 legs and Mische r (finding) feet, back Neuro, [place] Tremor (finding) Active Problem 07/21/2020 [facility] [place] [facility] HYPOTENSION, Active UNSPECIFIED [place] DEHYDRATION Active [facility] PERIPHERAL VASCULAR Active DISEASE, [facility] UNSPECIFIED Medications Medication Details Route Status Patient Ordering Order Source Instructions Provider Date DULoxetine 30 mg 30 mg = 1 cap, Active 03/16/ [facility] oral delayed PO, Daily, # 30 2020 [facility] release capsule cap, 6 Refill(s), Pharmacy: [facility] Acetaminophen 1 cap, PO, Q4H, Active [...] euro Capsule cap, 3 [Cymbalta] Refill(s), Pharmacy: [facility] citalopram 40 mg 0 Refill(s) Inactive [...] No Longer exceed 4 gm/day. Active 2018 [facility] (Same as: Tylenol) Lactulose 667 Notes: (Same No Longer MG/ML Oral as:Chronulac) Active 2018 [facility] Solution Oxycontin Notes: Do not No Longer crush or chew. Active 2018 [facility] (Same as: OxyContin) Dextrose 50% 12.5 gm, 25 mL, No Longer H Syringe Route: IVP, Drug Active 2018 [facility] Form: INJ, Dosing Weight 87.415, kg, [...] No Longer Humalog) Roll in Active 2018 [facility] palms of hands gently; Do not shake vigorously. WASTE: F/P - Black; E - [employer] Trash Bin Stable for 28 days [...] (Same As: No Longer Maxipime) Active 2018 [facility] t MEDICATION WASTE Product Size: 1000 mg Product Wasted: ___ mg Trazodone Notes: (Same As: No Longer Desyrel) Active 2018 [facility] Calcium Chloride 1,000 mL, Rate: No Longer 07/04 0.0014 MEQ/ML / 100 ml/hr, Active 2018 [facility] Potassium Infuse over: 10 Chloride 0.004 [...] 2019 [place] tab, 0 Refill(s), Pharmacy: [facility] Aspirin 81 MG 81 mg = 1 tab, Active Enteric Coated PO, Daily, # 30 2019 [place] Tablet tab, 0 Refill(s), Pharmacy: [facility] Docusate Sodium 100 mg = 1 cap, Active 100 MG Oral PO, BID, # 60 2019 [place] Capsule cap, 0 Refill(s), Pharmacy: [facility] Famotidine 20 MG 20 mg = 1 tab, Active Oral Tablet PO, BID, # 60 2019 [place] tab, 0 Refill(s), Pharmacy: [facility] metoprolol 25 mg 12.5 mg = 0.5 Active 07/02/ M H oral tablet, tab, PO, Daily, 2019 [facility] extended release # 15 tab, 0 Refill(s), Pharmacy: [facility] polyethylene See Active glycol 3350 oral Instructions, 2019 [place] kit PRN Constipation, PO BID, # 30 kit, 0 Refill(s), Pharmacy: [facility] sennosides, CORRECTION 17.2 mg = 2 tab, Active 8.6 MG Oral PO, Bedtime, X 2019 [facility] Tablet 14 day, # 28 tab, 0 Refill(s), Pharmacy: [facility] Amiodarone Notes: (Same as: Inactive Cordarone) [...] mg Amiodarone 2 mg/ml. Inactive "Recommendation: 2019 [facility] Use an in-line filter during administration [...] adult 1 supp, Route: No Longer rectal WA, Drug Form: Active 2018 [facility] [...] No Longer Humalog) Roll in Active [address] [facility] [address] palms of hands gently; Do not [...] Longer Chloride KCL) Infuse no Active [address] [facility] faster than 10 mEq/hr if given peripherally. sodium phosphate Notes: Infuse No Longer over 4 hour. Do Active 2018 [facility] t not infuse phosphorous concurrently in the same line as TPN or IVF that contains calcium. For double lumen central lines, phosphorous may be infused in a separate lumen from TPN. potassium Notes: (Same as: No Longer phosphate K Phosphate.) Active 2018 [place] [facility] Do not infuse phosphorous concurrently in [...] F/P - Sink; E - Active [facility] [employer] Trash [employer] Magnesium Oxide Notes: (Same as: No Longer 06/27 Mag-Ox 400) Active 2018 [facility] Magnesium oxide [id number] elemental magnesium Dose=____mg magnesium oxide (___mg elemental [...] No Longer H Apresoline) Push Active [address] [facility] over 5 minutes Pepcid Notes: (Same as: No Longer Pepcid) Active 2018 [facility] Tylenol Notes: Do not No Longer exceed 4 gm/day. [facility] [address] [facility] (Same as: Tylenol) Dexamethasone [...] mg, Route: Inactive IVP, PRN, Dosing 2018 [facility] Weight 83.182, kg, PRN Benzodiazepine Reversal, [...] Drug Inactive (ANES) form: INJ, ONCE, 2018 [facility] Stop date: 06/25/19 17:18:00 CDT neostigmine Route: IV, Drug Inactive (ANES) form: INJ, ONCE, 2018 [facility] Stop date: 06/25/19 17:18:00 CDT ondansetron Route: IV, Drug Inactive (ANES) form: INJ, ONCE, 2018 [facility] Stop date: 06/25/19 17:18:00 CDT Lovenox [...] IV, Drug Inactive form: INJ, ONCE, 2018 [facility] Stop date: 06/25/19 16:22:00 CDT acetaminophen Route: IV, Drug Inactive M H (ANES) form: INJ, ONCE, 2018 [facility] Stop date: 06/25/19 15:04:00 CDT heparin (ANES) Route: IV, Drug Inactive form: INJ, ONCE, 2018 [facility] Stop date: 06/25/19 14:23:00 CDT albumin human Route: IV, Drug Inactive H (ANES) 25 gm form: INJ, Start 2018 [facility] date: 06/25/19 13:36:00 CDT, Stop date: 06/25/19 14:36:00 CDT lidocaine (ANES) Route: IV, Drug Inactive form: INJ, ONCE, 2018 [facility] Stop date: 06/25/19 13:17:00 CDT fentaNYL (ANES) Route: IV, Drug Inactive form: INJ, ONCE, 2018 [facility] Stop date: 06/25/19 13:17:00 CDT propofol (ANES) Route: IV, Drug Inactive form: INJ, ONCE, 2018 [facility] Stop date: 06/25/19 13:17:00 CDT rocuronium Route: IV, Drug Inactive 06/25/ MH (ANES) form: INJ, ONCE, 2018 [facility] Stop date: 06/25/19 13:17:00 CDT ceFAZolin (ANES) Route: IV, Drug Inactive form: INJ, ONCE, 2018 [facility] Stop date: 06/25/19 13:17:00 CDT Sodium [...] No Longer Colace) (Do Not Active [facility]) Aspirin Notes: Do [...] Longer MG Oral Tablet Neurontin) Active 2018 [facility] ast Simvastatin Notes: (Same as: No Longer [...] Longer Syringe Route: IVP, Drug Active [address] [facility] [address] Form: INJ, Dosing Weight 83.182, kg, [...] No Longer Humalog) Roll in Active 2019 [facility] palms of hands gently; Do not shake vigorously. WASTE: F/P - Black; E - [employer] Trash [employer] Stable for 28 days at room temperature. Expires in days from Da te Oxycodone Notes: (Same as: No Longer Hydrochloride 5 Roxicodone) Active 2019 [place] Oral Tablet Dextrose 50% 12.5 gm, 25 mL, Inactive Syringe Route: IVP, Drug 2019 [facility] Form: INJ, Dosing Weight 83.182, kg, [...] mg, Route: Inactive IVPB, Drug form: 2019 [facility] INJ, ONCE, Dosing Weight 83.182, kg, [...] mg, Route: Inactive IVP, PRN, Dosing [address] [facility] [address] Weight 83.182, kg, PRN Benzodiazepine Reversal, [...] IV, Drug Inactive form: INJ, ONCE, 2018 [facility] Stop date: 06/23/19 15:16:00 CDT lidocaine (ANES) Route: IV, Drug Inactive form: INJ, ONCE, 2018 [facility] Stop date: 06/23/19 15:13:00 CDT propofol (ANES) Route: IV, Drug Inactive form: INJ, ONCE, 2018 [facility] Stop date: 06/23/19 15:13:00 CDT vancomycin Route: IV, Drug Inactive (ANES) 1000 mg form: INJ, Start 2018 [facility] date: 06/23/19 14:35:00 CDT, Stop date: 06/23/19 15:35:00 CDT ceFAZolin (ANES) Route: IV, Drug Inactive 1000 mg form: INJ, Start 2018 [facility] date: 06/23/19 14:30:00 CDT, Stop date: 06/23/19 15:30:00 CDT Sodium Chloride Route: IV, Total Inactive 0.9% IV (ANES) Volume: 1,000, 2018 [facility] 1000 mL Start date: 06/23/19 14:26:00 CDT, Stop date: 06/23/19 15:26:00 CDT Ancef + sterile Notes: (Same As: Inactive water 20 mL Ancef, Kefzol) 2018 [facility] MEDICATION WASTE Product Size: 1000 mg [...] Tablet 30 tab, 3 [Trileptal] Refill(s), Pharmacy: [facility] gabapentin 600 600 mg = 1 [...] Negative 07/05 RESULTS Scrn (07/05/19 11:00 AM) [facility] BLOOD [facility] RBC product Product available 4 07/05 Resul t RESULTS (07/05/19 9:30 AM) Comment: [facility] 07/05/2019 12:33 [id number]
KLS notified Mandy 07/05/2019 12:33 CHEM PANEL [...] not recommended in the following populations:< br/>
Gaa viduals with unstable creatinine concentration s, including [...] available 06/28 RESULTS (06/28/19 3:52 PM) /2018 [facility] BLOOD BANK RBC product Product available 4 06/28 Resul t RESULTS (06/28/19 3:11 PM) Comment: [facility] 06/28/2019 15:39 [id number]
Called to JASON GONZALEZ_ at _06/28/2019 15:37 by [facility]_. BLOOD BANK ABO/Rh O POS 06/28 RESULTS /2018 [facility] BLOOD BANK Antibody Negative 06/28 RESULTS Scrn (06/28/19 8:27 AM) [facility] BLOOD BANK RBC product Product available 5 06/28 Resul t RESULTS (06/28/19 8:05 AM) Comment: [facility] 06/28/2019 09:49 [id number]
KLS notified Gema 06/28/2019 09:49 CHEM PANEL [...] 06/23 RESULTS Scrn (06/23/19 11:13 AM) /2018 [facility] HEMATOLOGY INR 1.17 0.85 - 06/23 1.17 /2018 [facility] HEMATOLOGY PT 14.7 12.0 - 06/23 14.7 [facility] HEMATOLOGY PTT 30.8 22.9 - 06/23 35.8 [facility] Basophils # 0.1 0.0 - 0.2 06/23 [facility] Pathology Reports No Data Provided for This Section Diagnostic Reports Report Value Date Source Chest 1view DX Patient Name: NATE POWER 06/30/2019 [facility] : 1940; Age: 79 years y/o Male MR: [id number] Study: Chest 1view DX 06/30/2019 11:00 CDT [...] Correlate clinically for pneumonitis or edema. SL: [id number] Chest 1 v for Patient Name: NATE POWER 06/25/2019 [facility] Placement DX : 1940; Age: 79 years y/o Male MR: [id number] Study: Chest 1 v for Placement DX [...] series Clinical Indication: - INCORRECT COUNT 06/11 [facility] Comparison: None FINDINGS: AP and lateral views [...] acute radiographic abnormalities in the chest . [id number] Consultation Notes No Data Provided for This Section Discharge Summaries No Data Provided for This Section History and Physicals No Data Provided for This Section Vital Signs Vital Sign Value Date Comments Source Systolic (mm Hg) 172 03/16/2020 [facility] ro Diastolic (mm Hg) 56 03/16/2020 [facility] Ne [facility]ro Heart Rate 68 [facility] Resp[facility] 16 03/16/2020 [facility] Neuro Temperature Oral (F) 98.2 F 03/16/2020 [facility] Height 177.8 cm 03/16/2020 [facility] Weight 83.636 03/16/2020 [facility] Neuro BMI Calculated 26.46 03/16/2020 [facility] Systolic (mm Hg) 149 12/17/2019 [facility] Sophia ro Diastolic (mm Hg) 65 12/17/2019 [facility] Ne uro Heart Rate 75 12/17/2019 [facility] Respitory Rate 16 12/17/2019 [facility] Height 170.18 cm 12/17/2019 [facility] Weight 85 12/17/2019 [facility] BMI Calculated 29.35 12/17/2019 [facility] Systolic (mm Hg) 132 11/13/2019 [facility] Diastolic (mm Hg) 46 11/13/2019 [facility] Ne uro Heart Rate 71 11/13/2019 [facility] Respitory Rate 16 11/13/2019 [facility] Height 170.18 cm 11/13/2019 [facility] Weight 85.455 11/13/2019 [facility] BMI Calculated 29.51 11/13/2019 [facility] Respitory Rate 22 07/06/2019 [facility] Systolic [...] [place] Diastolic (mm Hg) 58 07/02/[address] [facility] [address] Respitory Rate 18 07/02/2019 [facility] Systolic (mm Hg) 114 07/02/2019 [place] Diastolic (mm Hg) 37 07/02/[address] [facility] Respitory Rate 10 07/02/2019 [facility] Systolic (mm Hg) 115 07/02/2019 [place] Diastolic (mm Hg) 41 07/02/[address] Temperature Oral (F) 98.6 F 07/02/2019 [...] [facility] Ne uro Heart Rate 70 10/23/2018 [facility] Neuro BMI Calculated 27.46 10/09/2018 [facility] Neuro Weight 86.818 10/09/2018 [facility] Neuro Height 177.8 cm 10/09/2018 [facility] Neuro Respitory Rate 16 10/09/2018 [facility] Neuro Heart Rate 74 10/09/2018 [facility] Neuro Systolic (mm Hg) 177 10/09/2018 [facility] Sophia ro Diastolic (mm Hg) 79 10/09/2018 [facility] Ne uro BMI Calculated 26.74 09/11/2018 [facility] Neuro Weight 84.545 09/11/2018 [facility] Neuro Heart Rate 76 09/11/2018 [facility] Neuro Height 177.8 cm 09/11/2018 [facility] Neuro Systolic (mm Hg) 135 09/11/2018 [facility] Sophia ro Diastolic (mm Hg) 54 09/11/2018 [facility] Ne uro Encounters Location Location Encounter Encounter Reason Attending ADM ID Stat us Source Details Type Number For Provider Date Date Visit Outpatient [id number] AYAZ 09/11 Active [facility] [place] [facility] Outpatient [id number] Ayaz 09/11 09/12 [facility] Neurology [facility] [place] Outpatient [id number] AYAZ 09/16 Active [facility] [place] MNA Outpatient [id number] Ayaz 09/16 09/17 [facility] Neurology [facility] Neuro [place] MNA Outside [id number] 09/25 09/27 [facility] Neurology [facility] Neuro [place] Records MNA Phone [id number] 09/26 09/28 [facility] Neurology [facility] Neuro [place] Outpatient [id number] AYZA 10/09 Active [facility] [place] MNA Outpatient [id number] Ayaz 10/09 10/10 [facility] Neurology [facility] Neuro [place] Outpatient [id number] AYAZ 10/23 Active [facility] [place] MNA Outpatient [id number] Ayaz 10/23 10/24 [facility] Neurology [facility] Neuro [place] MNA Outside [id number] 10/30 11/01 [facility] Neurology Medical Neuro [place] Records Outpatient [id number] AYAZ 11/20 Active [facility] Jerem[place] MNA Ambulatory [id number] Ayaz 11/20 11/20 [facility]2018 [facility] [place] Outpatient [id number] AYAZ 02/04 Active [facility]RE[facility] Jeremias Outpatient [id number] AYAZ 02/26 Active [facility] Jerem[place] MNA Ambulatory [id number] Ayaz 02/26 02/26 [facility] Pre-Reg [place] [facility] [facility] [id number] Gyanendra 06/24 [facility] In[facility] [id number] Timoteo 07/04 07/06 [facility] Hotze /2018 [facility] Outpatient [id number] Ayaz 11/13 Active [facility] [place]rell /2020 [place] MNA Outpatient [id number] Ayaz 11/13 11/14 [facility] Neurology Krell /2019 /2019 [facility] [place] Outpatient [id number] Ayaz 12/17 Active [facility] Kre /2020 [place] MNA Outpatient [id number] Ayaz 12/17 12/18 [facility] Neurology Krell /2020 /2020 [facility] [place] Outpatient [id number] Ayaz 03/16 Active [facility] Krell /2020 [place] MNA Outpatient [id number] A Merrill 03/16 03/17 [facility] Neurology /2020 /2020 [facility] [place] Outpatient [id number] Ayaz 07/19 Active [facility] Krell /2020 [place] Outpatient [id number] Ayaz 07/19 Active [facility] Krell /2020 [place] MNA Ambulatory [id number] A Merrill 07/19 07/19 [facility] Neurology Pre-Reg /2020 2020 [facility] [place] MNA Ambulatory [id number] A Merrill 07/19 07/19 [facility] Neurology Pre-Reg /2020 /2020 [facility] [place] Procedures Procedure Code Date Perfomer Comments Source Kyphoplasty of [id number] 06/22/2013 [facility] fracture of lumbar Neuro, spine using [facility] computed tomography (CT) guidance Bypass / graft of [id number] 06/22/2008 [facility] vein Neuro, [place] Arthroplasty of [id number] 06/22/1995 right [facility] knee<sup>1</sup> Neuro, [place] Discectomy [id number] 06/22/1986 [facility] Neuro,[facility] 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 CCL error: %SCT-C-312-SMT_EDOC_COMMON(0, 0,56)124817:1833Overflow on array out of bound at (size:1,occur:5). CCL error: %OJI-W-150-SMT_EDOC_COMMON(0, 0,56)344509:1833Overflow on array out of bound at (size:1,occur:5). CCL error: %KAP-C-567-SMT_EDOC_COMMON(0, 0,56)535210:1833Overflow on array out of bound at (size:1,occur:7). CCL error: %EWG-F-784-SMT_EDOC_COMMON(0, 0,56)005857:1833Overflow on array out of bound at (size:1,occur:2). [...] I spent greater than 30 minutes in [facility] wing the clinical case, examining the patient, [...] Water IV: 12.5 gm, 25 mL, IVP, WA N, PRN: Blood Glucose Results. Dextrose 50% in Water IV: 25 gm, 50 mL, IVP , PRN, PRN: Blood Glucose Results. docusate: 100 mg, 1 cap, PO, BID. enoxaparin: 40 mg, 0.4 mL, SUB-Q, [id number]. fentaNYL: 25 microgram, IVP, Q5Min, PRN: Pain [...] Daily, 0 Refill(s). enoxaparin: 40 mg, SUB-Q, [id number]. enoxaparin: 40 mg, SUB-Q, Q24H. enoxaparin: 40 mg, 0.4 mL, SUB-Q, [id number]. ePHEDrine: 25 mg, 5 mL, PYXIS, ONCE. [...] proof-reading. Please interpret accordingly. Delores Cunningham MD [facility] Medicine [facility] Plan of Care No Data Provided for [...]
--- OUTSIDE RECORDS SUMMARY | 2020-10-31 10:10 | XMS REPORT | Continuity of Care Document ---
:1940 Author Organization [facility] t Address [address] [place] [address] Care Team Providers Name Role Phone Dago Nuno MD Attending Clinician Doctor Unassigned, Name Attending Clinician Unavailable Garfield GAGNON Attending Clinician Chuckie Sena Attending Clinician Simeon Parisi Attending Clinician Abel Cunningham Attending Clinician Simeon Parisi Admitting Clinician Abel Cunningham Admitting Clinician Problems Condition Condition Condition Status Onset Resolution Last Treating Co mments Source Name Details Category Date Date Treatment Clinician Date HYPOTENSIO Diagnosis Active 2019-07-23 Memoria N 8-24 22:09:00 l 00:00: Jeremias HYPOTENSIO 00 N Active 07/04/2019 [facility] DEHYDRATIO Diagnosis Active 2019-07-04 Memoria N, RENAL 8-24 17:34:00 l FAILURE, 00:00: Jeremias HYPOTENSIO DEHYDRATIO 00 N N, RENAL FAILURE, HYPOTENSIO N Active 07/04/2019 [facility] PVD Diagnosis Active 2019-07-06 Mem oria 06-22 21:56:00 l PVD 00:00: [place] 00 Active 06/22/2019 [facility] UNK Diagnosis Active 2019-06-23 Mem oria 06-22 19:27:00 l UNK 00:00: Jeremias 00 Active 06/22/2019 [facility] Dehydratio Problem 2019-07-08 M emoria n 22:19:55 l Jeremias Dehydratio n 07/08/2019 [facility] Chronic Problem Resolve 2020-07-21 Mem oria pain d 21:21:18 l (finding) Chronic Herm jonas pain (finding) Resolved Problem 07/21/2020 legs and feet, back [facility] Cervical Problem Active 2020-07-21 Mem oria spondylosi 21:21:18 l s Cervical Telly n (disorder) spondylosi s (disorder) Active Problem 07/21/2020 [facility] Cervico-oc Problem Active 2020-07-21 emoria cipital 21:21:18 l neuralgia [place] (finding) Cervico-oc cipital neuralgia (finding) Active Problem 07/21/2020 [facility] Chronic Problem Active 2020-07-21 Gabe carolynn back pain 21:21:18 l (disorder) Chronic Her bruno back pain (disorder) Active Problem 07/21/2020 [facility] Chronic Problem Active 2020-07-21 Gabe carolynn kidney 21:21:18 l disease Chronic Telly n stage 3 kidney (disorder) disease stage 3 (disorder) Active Problem 07/21/2020 [facility] Confusiona Problem Active 2020-07-21 emoria l state 21:21:18 l (disorder) Telly n Confusiona l state (disorder) Active Problem 07/21/2020 [facility] Coronary Problem Active 2020-07-21 [facility] oria arterioscl 21:21:18 l erosis Coronary Telly n (disorder) arterioscl erosis (disorder) Active Problem 07/21/2020 [facility] Diabetes Problem Active 2020-07-21 Mem oria mellitus 21:21:18 l (disorder) Diabetes He rmann mellitus (disorder) Active Problem 07/21/2020 [facility] Essential Problem Active 2020-07-21 Me moria hypertensi 21:21:18 l on Jeremias (disorder) Essential hypertensi on (disorder) Active Problem 07/21/2020 [facility] Gastroesop Problem Active 2020-07-21 M emoria hageal 21:21:18 l reflux Jeremias disease Gastroesop (disorder) hageal reflux disease (disorder) Active Problem 07/21/2020 [facility] Generalize Problem Active 2020-07-21 M emoria d anxiety 21:21:18 l disorder [place] (disorder) Generalize d anxiety disorder (disorder) Active Problem 07/21/2020 [facility] Headache Problem Active 2020-07-21 Mem oria (finding) 21:21:18 l Headache Telly n (finding) Active Problem 07/21/2020 [facility] Hyperlipid Problem Active 2020-07-21 M emoria emia 21:21:18 l (disorder) Telly n Hyperlipid emia (disorder) Active Problem 07/21/2020 [facility] Insomnia Problem Active 2020-07-21 Mem oria (disorder) 21:21:18 l Insomnia Telly n (disorder) Active Problem 07/21/2020 [facility] Obstructiv Problem Active 2020-07-21 M emoria e sleep 21:21:18 l apnea [place] syndrome Obstructiv (disorder) e sleep apnea syndrome (disorder) Active Problem 07/21/2020 [facility] Osteoarthr Problem Active 2020-07-21 M emoria itis 21:21:18 l (disorder) Telly n Osteoarthr itis (disorder) Active Problem 07/21/2020 [facility] Peripheral Problem Active 2020-07-21 M emoria nerve 21:21:18 l disease Jeremias (disorder) Peripheral nerve disease (disorder) Active Problem 07/21/2020 [facility] Tremor Problem Active 2020-07-21 Memor ia (finding) 21:21:18 l Tremor Jeremias (finding) Active Problem 07/21/2020 [facility] HYPOTENSIO Diagnosis Active 2019-07-23 Memoria N, 22:09:00 l UNSPECIFIE Telly n D HYPOTENSIO N, UNSPECIFIE D Active [facility] DEHYDRATIO Diagnosis Active 2019-07-04 Memoria N 17:34:00 l Jeremias DEHYDRATIO N Active [facility] PERIPHERAL Diagnosis Active 2019-07-06 Memoria VASCULAR 21:56:00 l DISEASE, [place] UNSPECIFIE PERIPHERAL D VASCULAR DISEASE, UNSPECIFIE D Active [facility] History of Past Illness Condition Condition Condition Status Onset Resolution Last Treating Co mments Source Name Details Category Date Date Treatment Clinician Date Nerve Problem Resolve 1994-2020-07-21 2020-07-21 Memoria injury d -12 21:21:18 21:21:18 l (disorder) Nerve 00:00: Pilar nn injury 00 (disorder) Resolved 06/22/1995 [facility]/21[facility] Hypertensi Problem Resolve 1987-0 2020-07-21 2020-07-21 Memoria ve d -12 21:21:18 21:21:18 l disorder, 00:00: Jeremias systemic Hypertensi 00 arterial ve (disorder) disorder, systemic arterial (disorder) Resolved 06/22/1988 Problem 07/21/2020 [facility] Allergies, Adverse Reactions, Alerts Allergy Allergy Status Severity Reaction(s) Onset Inactive Treating Comm ents Source Name Type Date Date Clinician morphine morphine Active Memori a l [place] Dilaudid Dilaudid Active Memori a l [place] iodine iodine Active Memoria l [place] Social History Social Habit Start Date Stop Date Quantity Comments Source Social History 2020-07-19 2020-07-19 Bethany pang 15:00:00 15:00:00 Smoking Status Start Date Stop Date Source Social History 2019-07-04 22:41:06 Bethany bruno Medications Ordered Filled Start Stop Current Ordering Indication Dosage Frequency Signature Comments Components Source Medication Medication Date Date Medication? Clinician (SIG) Name Name DULoxetine Yes 30 mg = 1 Me moria 30 mg oral 5-06 cap, PO, l delayed 15:03: Daily, # Telly n release 00 30 cap, 6 capsule Refill(s), Pharmacy: [facility] Acetaminoph Yes 1 cap, PO, Memoria en 300 MG / 2-06 Q4H, 0 l butalbital 22:03: Refill(s) He rmann 50 MG / 00 Caffeine 40 MG Oral Capsule omeprazole Yes 40 mg = 1 Me moria 40 mg oral 2-06 cap, PO, l delayed 22:03: Daily, 0 Telly n release 00 Refill(s) capsule terazosin 2 Yes 2 mg = 1 Me moria [...] cap, 3 Capsule Refill(s), [Cymbalta] Pharmacy: [facility] citalopram No 0 Memoria 40 mg oral [...] 07-05 Route: IM, l 14:30: Drug form: PDR/INJ, [...] l 09:30: Lovenox) cefepime No Notes: Memoria 8- (Same As: l 03:00: Maxipime) MEDICATION WASTE Product Size: 1000 mg Product Wasted: ___ mg Trazodone No Notes: Memori a 07-05 (Same As: l 02:00: Desyrel) Calcium No 1,000 mL, Memor ia Chloride 07-04 Rate: 100 l 0.0014 23:07: ml/hr, [place] MEQ/ML / 00 Infuse Potassium over: 10 [...] ea, PO, l powder 22:51: BID, 0 [place] 00 Refill(s) AMIODarone Yes 200 mg = 1 M emoria 200 mg oral 8-22 tab, PO, l tablet 19:30: Daily, # [place] 00 30 tab, 0 Refill(s), Pharmacy: [facility] Aspirin 81 2018- Yes 81 mg = 1 Me moria MG Enteric 8-22 tab, PO, l Coated 19:30: Daily, # Jeremias Tablet 00 30 tab, 0 Refill(s), Pharmacy: [facility] Docusate Yes 100 mg = 1 Mem oria Sodium 100 8-22 cap, PO, l MG Oral 19:30: BID, # 60 Pilar nn Capsule 00 cap, 0 Refill(s), Pharmacy: [facility] Famotidine Yes 20 mg = 1 Me moria 20 MG Oral 8-22 tab, PO, l Tablet 19:30: BID, # 60 Telly n 00 tab, 0 Refill(s), Pharmacy: [facility] metoprolol Yes 12.5 mg = Me moria 25 mg oral 8-22 0.5 tab, l tablet, 19:30: PO, Daily, Herm jonas extended 00 # 15 tab, release 0 Refill(s), Pharmacy: [facility] polyethylen Yes See Memori a e glycol 8-22 Instructio l 3350 oral 19:30: ns, PRN Pilar nn kit 00 Constipati on, PO BID, # 30 kit, 0 Refill(s), Pharmacy: [facility] sennosides, Yes 17.2 mg = M emoria LONG TERM 8.6 MG 07-02 2 tab, PO, l Oral Tablet 19:30: Bedtime, X [place] 00 14 day, # 28 tab, 0 Refill(s), Pharmacy: [facility] Amiodarone No Notes: Memor ia 07-02 (Same [...] moria 06-30 "Recommend l 21:50: ation: Use an in-line filter during administra tion for [...] 1 supp, Memori a adult 06-30 Route: ID, l rectal 15:03: Drug Form: Pilar nn suppository 00 SUPP, Dosing Weight 83.182, kg, Daily, PRN Constipati on, Start date: 06/30/19 10:03:00 CDT, Duration: 30 day, Stop date: 07/30/19 10:02:00 CDT, 0 Fleet Enema No 12 years, Memoria 06-30 Pediatric l 15:03: Dosing, 0 citalopram No 20 mg = 1 Me moria 20 mg oral 06-30 tab, PO, l tablet 14:15: Daily, # Jeremias 00 30 tab, 0 Refill(s) metoprolol No Notes: Memor ia extended 06-30 (Same as: l release 14:00: Toprol XL) Herm jonas Do Not Crush Lasix No Notes: Memoria 06-29 (Same as: l 00:00: Lasix) Jeremias 00 MEDICATION WASTE Product Size: [...] 06-27 With food l 22:51: or milk (Same as: Xanax) potassium No Notes: Memori [...] mL 06-27 Rate: 100 l 14:52: ml/hr, Jeremias 00 Infuse over: 10 hr, Route: IV, Dosing Weight 83.182 kg, Total Volume: 1,000, Start date: 06/27/19 9:52:00 CDT, Duration: 30 day, Stop date: 07/27/19 9:51:00 CDT, 2, m2, 0 Reglan No Notes: Memoria 06-27 (Same as: l 14:51: Reglan) Jeremias 00 Potassium No Notes: Memori a Chloride -17 (Same as: l 14:51: KCL) Jeremias Infuse no faster than 10 mEq/hr if given peripheral ly. sodium No Notes: Memoria phosphate -17 Infuse l 14:51: over 4 Jeremias 00 hour. Do not infuse phosphorou s concurrent ly in the same line as TPN or IVF that contains calcium. For double lumen central lines, phosphorou s may be infused in a separate lumen from TPN. potassium No Notes: Memori a phosphate 8-17 (Same as: l 14:51: K Jeremias 00 [...] 06-27 (Same as: l odium 14:51: Phos-NaK) phosphate 00 Each 1.5 250 mg-280 gm pkt has mg-160 mg 250mg oral powder phosphorou for s. Mix reconstitut w/2.5oz ion water and stir. Magnesium No Notes: Memori a Sulfate 06-27 WASTE: F/P l 14:51: - Sink; E - Municipal Trash Bin Magnesium No Notes: Memori a Oxide 06-27 (Same as: l 14:51: Mag-Ox [place] 00 400) Magnesium oxide [id number]=338t g elemental magnesium Dose=____m g magnesium oxide [...] Gabe carolynn 06-25 Route: l 22:57: IVP, Jeremias 00 Q20Min, Dosing Weight 83.182, kg, PRN Elevated BP, Start date: 06/25/19 17:57:00 CDT, Duration: 2 doses or times, Stop date: Limited # of times Labetalol No 10 mg, Memori a 06-25 Route: l 22:57: IVP, [place] 00 Q5Min, Dosing Weight 83.182, kg, PRN Elevated BP, Start date: 06/25/19 17:57:00 CDT, Duration: 5 doses or times, Stop date: Limited # of times Metoprolol 2019-0 No 1 mg, Memori a 06-25 Route: l 22:57: IVP, [place] 00 Q5Min, Dosing Weight 83.182, kg, PRN [...] 25 Memoria 8-15 microgram, l 22:57: Route: Jeremias 00 IVP, Q5Min, Dosing Weight [...] carolynn 06-25 Route: l 22:57: IVP, PRN, Dosing Weight 83.182, kg, PRN Benzodiaze pine Reversal, Initial dose, Start date: 06/25/19 17:57:00 CDT, Duration: 30 day, Stop date: 07/25/19 17:56:00 CDT Naloxone 2019-0 No 0.4 mg, Memori a 06-25 Route: l 22:57: IVP, Q2MIN, Dosing Weight 83.182, kg, PRN Narcotic Reversal, Start date: 06/25/19 17:57:00 CDT, Duration: 8 doses or times, Stop date: Limited # of times Ondansetron 2019-0 No 4 mg, Memor ia 8 Route: l 22:57: IVP, ONCE, Dosing Weight 83.182, kg, PRN Nausea & Vomiting, Start date: 06/25/19 17:57:00 CDT glycopyrrol No Route: IV, Memoria ate (ANES) 06-25 Drug form: l 22:18: INJ, ONCE, Stop date: 06/25/19 17:18:00 CDT neostigmine 0 No Route: IV, Memoria (ANES) 8-15 Drug form: l 22:18: INJ, ONCE, Stop date: 06/25/19 17:18:00 CDT ondansetron 0 No Route: IV, Memoria (ANES) 06-25 Drug form: l 22:18: INJ, ONCE, Stop date: 06/25/19 17:18:00 CDT Lovenox 2018-0 No Notes: Memoria 8-15 (Same as: l 22:00: Lovenox) normal 0 No 1,000 mL, Memori a saline 0.9% 8-15 Rate: 100 l IV 1,000 mL 21:47: ml/hr, Infuse over: 10 hr, Route: IV, Dosing Weight 83.182 kg, Total Volume: 1,000, Start date: 06/25/19 16:47:00 CDT, Duration: 30 day, Stop date: 07/25/19 16:46:00 CDT, 2, m2, 0 protamine 2019 No Route: IV, Me moria (ANES) 8-15 Drug form: l 21:22: INJ, ONCE, Stop date: 06/25/19 16:22:00 CDT acetaminoph No Route: IV, Memoria en (ANES) 8-15 Drug form: l 20:04: INJ, ONCE, Stop date: 06/25/19 15:04:00 CDT heparin No Route: IV, Gabe carolynn (ANES) 8-15 Drug form: l 19:23: INJ, ONCE, Stop date: 06/25/19 14:23:00 CDT albumin No Route: IV, Gabe carolynn human 8-15 Drug form: l (ANES) 25 18:36: INJ, Start He rm date: 06/25/19 13:36:00 CDT, Stop date: 06/25/19 14:36:00 CDT lidocaine No Route: IV, Me moria (ANES) 8-15 Drug form: l 18:17: INJ, ONCE, Stop date: 06/25/19 13:17:00 CDT fentaNYL No Route: IV, Mem oria (ANES) 8-15 Drug form: l 18:17: INJ, ONCE, Stop date: 06/25/19 13:17:00 CDT propofol No Route: IV, Mem oria (ANES) 8-15 Drug form: l 18:17: INJ, ONCE, Stop date: 06/25/19 13:17:00 CDT rocuronium No Route: IV, M emoria (ANES) 815 Drug form: l 18:17: INJ, ONCE, Stop date: 06/25/19 13:17:00 CDT ceFAZolin No Route: IV, Me moria (ANES) 8-15 Drug form: l 18:17: INJ, ONCE, Stop date: 06/25/19 13:17:00 CDT Sodium No Route: IV, Memor ia Chloride 06-25 Total l 0.9% IV 17:25: Volume: Jeremias (ANES) 1000 00 1,000, mL Start date: 06/25/19 12:25:00 CDT, Stop date: 06/25/19 13:25:00 CDT Calcium 2018- No 1,000 mL, Memor ia Chloride 8-15 Rate: 25 l 0.0014 17:06: ml/hr, Jeremias [...] Lactated No Route: IV, Mem oria Ringers 8-15 Total l Injection 17:01: Volume: Pilar nn IV (ANES) 00 1,000, 1000 mL Start date: 06/25/19 12:01:00 CDT, Stop date: 06/25/19 13:01:00 CDT Norepinephr No Notes: Gabe carolynn ine 8-15 Same as: l 14:13: Levophed. Administer by either central venous catheter or peripheral ly-inserte d central catheter (PICC) line. Concentrat ion: 0.032 mg / mL Lovenox No Notes: Memoria 8-14 (Same as: l 14:00: Lovenox) [place] 00 Docusate No Notes: Memoria 8-14 (Same as: l 14:00: Colace) (Do Not Crush) Aspirin No Notes: Do Memor ia 8-14 not crush l 14:00: or chew. (Same As: Ecotrin) Citalopram No 40 mg, 4 Mem oria 8-14 tab, l 14:00: Route: PO, [place] 00 Drug form: TAB, Daily, Dosing Weight 83.182, kg, Start date: 06/24/19 9:00:00 CDT, Duration: 30 day, Stop date: 07/23/19 9:00:00 CDT, 0 gabapentin No Notes: Memor ia 600 MG Oral 8-14 (Same as: l Tablet 14:00: Neurontin) Pilar nn 00 Simvastatin No Notes: Gabe carolynn 8-14 (Same as: l 14:00: Zocor) [place] 00 Alprazolam No Notes: Memor ia 8-14 With food l 14:00: or milk (Same as: Xanax) Lisinopril No Notes: Memor ia 8-14 (Same as: l 14:00: Prinivil, [place] 00 Zestril) Zofran No Notes: Memoria 8-14 (Same as: l 02:46: Zofran) MEDICATION WASTE Product Size: 4 mg Product Wasted: ___ mg sennosides, No Notes: Gabe carolynn LONG TERM 8-14 (Same as: l 02:00: Senokot) 200 ACTUAT No Notes: SEE M emoria Albuterol 8-14 RT l 0.09 01:00: DOCUMENTAT [place] MG/ACTUAT 00 ION (Same Metered as: Dose Proventil) Inhaler [ProAir HFA] oxyCODONE No Notes: Do Mem oria 10 mg -14 not crush l extended 00:54: or chew. Pilar nn release 00 (Same as: OxyContin) gabapentin Yes 600 mg = 1 M emoria 600 MG Oral 8-14 tab, PO, l Tablet 00:41: TID, # 270 Pilar nn 00 tab, 0 Refill(s) Dextrose No 12.5 gm, Memor ia 50% Syringe 06-23 25 mL, l 22:52: Route: IVP, Drug Form: INJ, Dosing Weight 83.182, kg, PRN, PRN Blood Glucose Results, Start date: 06/23/19 17:52:00 CDT, Duration: 30 day, Stop date: 07/23/19 17:51:00 CDT, 0 Glucagon 2018-0 No 1 mg, Memoria 06-23 Route: IM, l 22:52: Drug form: [place] 00 PDR/INJ, PRN, Dosing Weight 83.182, kg, PRN [...] Stop date: 07/23/19 17:46:00 CDT, 0 Glucagon 0 No 1 mg, Memoria 06-23 Route: IM, l 22:47: Drug form: PDR/INJ, PRN, Dosing Weight 83.182, kg, PRN Blood Glucose Results, Start date: 06/23/19 17:47:00 CDT, Duration: 30 day, Stop date: 07/23/19 17:46:00 CDT, 0 Trazodone 0 No Notes: Memori a 06-23 (Same As: l 22:47: Desyrel) Lovenox 2018-0 No 40 mg, Memoria 06-23 Route: l 21:00: SUB-Q, Drug form: INJ, Q24H, Dosing Weight 83.182, kg, Priority: Within 8 hours, Start date: 06/23/19 16:00:00 CDT, Duration: 30 day, Stop date: 07/22/19 16:00:00 CDT Hydralazine 2019-0 No 10 mg, Gabe carolynn 06-23 Route: l 20:27: IVP, Jeremias 00 Q20Min, Dosing Weight 83.182, kg, PRN [...] Memori a 06-23 Route: l 20:27: IVP, [place] 00 Q5Min, Dosing Weight 83.182, kg, PRN Other -See Comment, Start date: 06/23/19 15:27:00 CDT, Duration: 5 doses or times, Stop date: Limited # of times Acetaminoph 2019-0 No 1,000 mg, M emoria en 06-23 Route: l 20:27: IVPB, Drug Jeremias 00 form: INJ, ONCE, [...] 25 Memoria 06-23 microgram, l 20:27: Route: [place] 00 IVP, Q5Min, Dosing Weight 83.182, kg, PRN Pain Score 4-6, Priority: Routine, Start date: 06/23/19 15:27:00 CDT, Duration: 4 doses or times, Stop date: Limited # of times Hydromorpho 2019-0 No 0.5 mg, Mem oria ne 06-23 Route: l 20:27: IVP, Q5Min, Dosing Weight 83.182, kg, PRN [...] Memori a 06-23 Route: l 20:27: IVP, Q2MIN, Dosing Weight 83.182, kg, PRN [...] 2018-0 No Route: IV, Me moria (ANES) 8-13 Drug form: l 20:13: INJ, ONCE, Stop [...] CDT, Stop date: 06/23/19 15:30:00 CDT Sodium 0 No Route: IV, Memor ia Chloride 06-23 Total l 0.9% IV 19:26: Volume: Jeremias (ANES) 1000 00 1,000, mL Start date: 06/23/19 14:26:00 CDT, Stop date: 06/23/19 15:26:00 CDT Ancef + No Notes: Memoria sterile 06-23 (Same As: l water 20 mL 16:00: Ancef, Herm jonas 00 Kefzol) MEDICATION WASTE Product Size: 1000 mg Product Wasted: ___ mg Vancomycin No 2001 mg: Me moria 06-23 infuse l 16:00: over 2.5 [place] 00 hours For adult patients only: Round to nearest 250 mg per Medical Staff approval MEDICATION WASTE Product Size: 1000 mg Product Wasted: ___ mg Acetylcyste No Notes: Gabe carolynn ine 200 06-23 SEND TO l MG/ML 16:00: PRE-OP [place] Inhalant 00 SEND TO Solution PRE-OP SEND TO PRE-OP NS 1,000 mL No 1,000 mL, Andriy emoria 06-23 Rate: 150 l 15:01: ml/hr, Jeremias 00 Infuse over: 6.7 hr, Route: IV, Dosing Weight 84.545 kg, Total Volume: 1,000, Start date: 06/23/19 10:01:00 CDT, Duration: 30 day, Stop date: 07/23/19 10:00:00 CDT, 2.06, m2, 0 oxcarbazepi 2017-11 Yes 150 mg = 1 Memoria ne 150 MG 12-09 tab, PO, l Oral Tablet 20:04: Bedtime, # [place] [Trileptal] 00 30 tab, 3 Refill(s), Pharmacy: [facility] gabapentin 2017-11 Yes 600 mg = 1 M emoria 600 MG Oral 11-11 tab, PO, l Tablet 17:59: Daily, 0 Jeremias 00 Refill(s) Citalopram 2017-11 Yes 40 mg, PO, M emoria 11-11 Daily, 0 l 17:59: Refill(s) Jeremias 00 200 ACTUAT 2017-11 Yes 2 puff, Gabe carolynn Albuterol 11-11 INHALATION l 0.09 17:59: , Q6H, 0 [place] MG/ACTUAT 00 Refill(s) Metered Dose Inhaler [ProAir HFA] Lactulose 2017-11 Yes 10 gm = 15 Me moria 667 MG/ML 11-11 mL, PO, l Oral 17:59: BID, 0 [place] Solution 00 Refill(s) Omeprazole 2017-11 Yes 40 mg, PO, M emoria 11-11 Daily, 0 l 17:59: Refill(s) [place] Diclofenac 2017-11 Yes PO, 0 Memori a 11-11 Refill(s) l 17:59: Jeremias 00 Docusate 2017-11 Yes 100 mg = 1 Mem oria Sodium 100 11-11 cap, PO, l MG Oral 17:59: Daily, 0 Telly n Capsule 00 Refill(s) Metoclopram 2017-11 Yes 10 mg, PO, Memoria geoff 11-11 BID, 0 l 17:59: Refill(s) Jeremias Alprazolam 2017-11 Yes 1 mg, PO, Me moria 11-11 TID, PRN l 17:59: anxity, 0 [place] 00 Refill(s) Aspirin 2017-11 Yes 81 mg, PO, Gabe carolynn 11-11 Daily, 0 l 17:59: Refill(s) [place] 00 POLYETHYLEN 2017-11 Yes 17 gm, PO, Memoria E GLYCOL 11-11 Daily, # l 3350 142 17:59: 255 gm, 0 Herm jonas MG/ML Oral 00 Refill(s) Solution [Miralax] Trazodone 2017-11 Yes 50 mg, PO, Me moria 11-11 Bedtime, 0 l 17:59: Refill(s) Jeremias 00 oxyCODONE 2017-11 Yes 80 mg = 1 Mem oria 80 mg oral 11-11 tab, PO, l tablet, 17:59: TID, PRN Telly n extended 00 pain, 0 release Refill(s) ProAir HFA 2017-11 Yes 1 - 2 Memori a 11-11 puffs, l 17:59: INHALATION [place] 00 , Q6H, PRN Wheezing / cough / shortness of breath, # 1 ea, 0 Refill(s) Diclofenac 2017-11 Yes See Memoria Sodium 0.01 11-11 Instructio l MG/MG 17:59: ns, 2 [place] Topical Gel 00 mg-4mgTOP QID affected area, 0 Refill(s) Lisinopril 2017-11 Yes 10 mg, PO, M emoria 11-11 Daily, 0 l 17:59: Refill(s) Jeremias Simvastatin 2017-11 Yes 20 mg, PO, Memoria 11-11 Daily, 0 l 17:59: Refill(s) [place] 00 3 ML 2017-11 Yes 600 mg, 0 Memoria Insulin 11-11 Refill(s) l Lispro 100 17:59: Jeremias UNT/ML Pen 00 Injector [Humalog] Ondansetron 2017-11 Yes 8 mg, PO, M emoria 11-11 Q8H, PRN l 17:59: nausea, 0 Jeremias 00 Refill(s) Reglan 2017-11 No 10 mg, PO, Memor ia 11-11 BID, 0 l 17:59: Refill(s) Jeremias 00 Vital Signs Vital Name Observation Time Observation Value Comments Source Systolic (mm Hg) 2020-03-16 14:30:00 Gabe rial Jeremias Diastolic (mm Hg) 2020-03-16 14:30:00 Mem orial Jeremias Heart Rate 2020-03-16 14:30:00 [facility] Jeremias Respitory Rate 2020-03-16 14:30:00 Memori al [place] Temperature Oral (F) 2020-03-16 14:30:00 98.2 F [facility] [place] Height 2020-03-16 14:30:00 177.8 cm [facility] [place] Weight 2020-03-16 14:30:00 [facility] Jeremias BMI Calculated 2020-03-16 14:30:00 Memori al Jeremias Systolic (mm Hg) 2019-12-17 17:47:00 Gabe rial [place] Diastolic (mm Hg) 2019-12-17 17:47:00 Mem orial Jeremias Heart Rate 2019-12-17 17:47:00 [facility] [place] Respitory Rate 2019-12-17 17:47:00 Memori al [place] Height 2019-12-17 17:47:00 170.18 cm [facility] [place] Weight 2019-12-17 17:47:00 [facility] [place] BMI Calculated 2019-12-17 17:47:00 Memori al Jeremias Systolic (mm Hg) 2019-11-13 14:55:00 Gabe rial [place] Diastolic (mm Hg) 2019-11-13 14:55:00 Mem orial Jeremias Heart Rate 2019-11-13 14:55:00 [facility] [place] Respitory Rate 2019-11-13 14:55:00 Memori al Jeremias Height 2019-11-13 14:55:00 170.18 cm [facility] [place] Weight 2019-11-13 14:55:00 [facility] [place] BMI Calculated 2019-11-13 14:55:00 Memori al Jeremias Respitory Rate 2019-07-06 20:00:00 Memori al [place] Systolic (mm Hg) 2019-07-06 20:00:00 Gabe rial Jeremias Diastolic (mm Hg) 2019-07-06 20:00:00 Mem orial Jeremias Respitory Rate 2019-07-06 19:00:00 Memori al [place] Systolic (mm Hg) 2019-07-06 19:00:00 Gabe rial Jeremias Diastolic (mm Hg) 2019-07-06 19:00:00 Mem orial Jeremias Respitory Rate 2019-07-06 18:00:00 Memori al [place] Systolic (mm Hg) 2019-07-06 18:00:00 Gabe rial [place] Diastolic (mm Hg) 2019-07-06 18:00:00 Mem orial [place] Temperature Oral (F) 2019-07-06 17:00:00 98.4 F [facility]ias Temperature Oral (F) 2019-07-06 13:00:00 98.6 F [facility] Jerem[facility] Temperature Oral (F) 2019-07-06 09:00:00 98.1 F [facility] [place] Height 2019-07-04 22:35:00 175.26 cm [facility] [place] Weight 2019-07-04 22:35:00 [facility] [place] BMI Calculated 2019-07-04 22:35:00 [facility] [place] Respitory Rate 2019-07-02 20:00:00 [facility] [place] Systolic (mm Hg) 2019-07-02 20:00:00 [facility] [place] Diastolic (mm Hg) 2019-07-02 20:00:00 [facility] Respitory Rate 2019-07-02 19:00:00 [facility] Systolic (mm Hg) 2019-07-02 19:00:00 [facility] [place] Diastolic (mm Hg) 2019-07-02 19:00:00 [facility] [place] Respitory Rate 2019-07-02 17:00:00 [facility] [place] Systolic (mm Hg) 2019-07-02 17:00:00 [facility] [place] Diastolic (mm Hg) 2019-07-02 17:00:00 [facility] [place] Temperature Oral (F) 2019-07-02 17:00:00 98.6 F [facility] Temperature Oral (F) 2019-07-02 13:00:00 98.7 F [facility] Height 2019-07-02 10:02:00 170.18 cm [facility] Temperature Oral (F) 2019-07-02 09:00:00 99.2 F [facility] [place] Height 2019-07-01 18:14:00 170.18 cm [facility] Height 2019-07-01 09:16:00 170.18 cm [facility] [place] Heart Rate 2019-06-25 16:38:00 [facility] [place] Heart Rate 2019-06-25 12:53:00 [facility] [place] Heart Rate 2019-06-25 07:51:00 [facility] [place] Weight 2019-06-23 15:01:00 [facility] [place] BMI Calculated 2019-06-23 15:01:00 [facility] [place] BMI Calculated 2018-10-23 15:03:00 [facility] Height 2018-10-23 15:03:00 177.8 cm [facility] Weight 2018-10-23 15:03:00 [facility] Systolic (mm Hg) 2018-10-23 15:03:00 [facility] [place] Diastolic (mm Hg) 2018-10-23 15:03:00 [facility] Heart Rate 2018-10-23 15:03:00 [facility] [place] BMI Calculated 2018-10-09 19:30:00 [facility] [place] Weight 2018-10-09 19:30:00 [facility] Height 2018-10-09 19:30:00 177.8 cm [facility] [place] Respitory Rate 2018-10-09 19:30:00 [facility] Heart Rate 2018-10-09 19:30:00 [facility] Systolic (mm Hg) 2018-10-09 19:30:00 [facility] Diastolic (mm Hg) 2018-10-09 19:30:00 [facility] [place] BMI Calculated 2018-09-11 16:37:00 [facility] Weight 2018-09-11 16:37:00 [facility] Heart Rate 2018-09-11 16:37:00 [facility] Height 2018-09-11 16:37:00 177.8 cm [facility] [place] Systolic (mm Hg) 2018-09-11 16:37:00 [facility] [place] Diastolic (mm Hg) 2018-09-11 16:37:00 [facility] orial [place] Procedures Procedure Date / Time Performed Performing Clinician [facility] e Kyphoplasty of fracture 2013-06-22 05:00:00 Gabe [facility] [place] of lumbar spine using computed tomography (CT) guidance Bypass / graft of vein 2008-06-22 05:00:00 Orior iayuly [place] Arthroplasty of 1995-06-22 05:00:00 [facility] Her bruno knee<sup>1</sup> Discectomy 1986-06-22 05:00:00 [facility] Her bruno 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 2020-10-25 2020-10-25 Rosemarieysabel Nuno [facility] [id number] 00:00:00 00:00:00 Rupesh Montague [id number] Dago Pinzon [id number] Professio [phone] nal 044 [facility] 2020-10-24 2020-10-24 Orders Doctor VALLEJO 1.2.840.114 [id number] 00:00:00 00:00:00 Only Unassigned, MEGGAN [id number] Weldon [facility] [id number] [id number] 2020-10-11 2020-10-11 Orders Doctor VALLEJO [id number] [id number] 00:00:00 00:00:00 Only Unassigned, MEGGAN [id number] Weldon [facility] [id number] [id number] 2020-10-10 2020-10-10 [facility] 1.2.840.114 [id number] 12:39:17 12:54:17 Visit [facility] [id number] Eddi [id number] Professio [id number] nal 044 Office [facility] One 2020-07-19 2020-07-19 Outpatient JOCELYN SenaSCHER ELYSIAMISCHER [id number] 10:00:00 10:00:00 Fede 00 Chuckie 2020-07-19 2020-07-19 Outpatient JOCELYN SenaSCHER ELYSIAMISCHER [id number] 10:00:00 10:00:00 Fede 10 Chuckie 2020-03-16 2020-03-16 Outpatient JOCELYN SenaSCHER ELYSIAMISCHER [id number] 09:15:00 23:59:59 Fede 09 Chuckie 2019-12-17 2019-12-17 Outpatient JOCELYN SenaSCHER ELYSIAMISCHER [id number] 11:45:00 23:59:59 Fede 08 Chuckie 2019-11-13 2019-11-13 Outpatient Nathen, MHMISCHER MHMISCHER [id number] 08:45:00 23:59:59 Fede 07 Chuckie 2019-07-04 2019-07-06 Outpatient Isak, MHSE MHSE [id number] 17:33:00 16:35:00 Timoteo Hendrix 2019-06-24 2019-07-02 Outpatient Marisa, MHSE MHSE [id number] 13:43:00 15:37:00 Delores Roman 2019-06-24 2019-06-23 Inpatient U MHSE [address] 13:43:00 15:31:00 [facility] 2019-02-26 2019-02-26 Outpatient Rafaelbrunilda, MHMISCHER MHMISCHER [id number] 09:45:00 09:45:00 Fede 05 Chuckie 2018-11-20 2018-11-20 Outpatient Rafaelbrunilda, MHMISCHER MHMISCHER [id number] 13:15:00 13:15:00 Fede 03 Chuckie 2018-10-30 2018-10-31 Outpatient MHMISCHER MHMISCHER [id number] 14:29:00 23:59:59 2018-10-23 2018-10-23 Outpatient Rafaelbrunilda, MHMISCHER MHMISCHER [id number] 09:30:00 23:59:59 Fede 04 Chuckie 2018-10-09 2018-10-09 Outpatient Nathen, MHMISCHER MHMISCHER [id number] 13:30:00 23:59:59 Fede 02 Chuckie 2018-09-26 2018-09-27 Outpatient MHMISCHER MHMISCHER [id number] 12:14:00 23:59:59 2018-09-25 2018-09-26 Outpatient MHMISCHER MHMISCHER [id number] 11:25:00 23:59:59 2018-09-16 2018-09-16 Outpatient Nathen, MHMISCHER MHMISCHER [id number] 15:00:00 23:59:59 Fede Chuckie 2018-09-11 2018-09-11 Outpatient Nathen, MHMISCHER MHMISCHER [id number] 11:30:00 23:59:59 Fede 00 Chuckie Results Test [...] code = MCH) 32.1 pg 27.0-31.0 [facility] ItksecqREWGLCFHVU4014-55-43 09:16:0033.4[facility] HermannHEMATOLOGY 2019-07-06 09:16:0016.1[facility] YjyspgiKPGSHNFZCC0853-63-47 09:16:99536Pttrbuaq QoragjxOWKGILBPYK1015-65-60 09:16:007.9[facility] HermannSTIMULATION STUDIES 2019-07-06 09:16:0010.8[facility]annBLOOD BANK AHMGPRP3413-25-53 16:00:00 Negative (07/05/19 11:00 AM)[facility] SISPFWY4564-80-95 14:30:00 Product available 4(07/05/19 9:30 AM)[facility] HermannCHEM CNUUQ2965-74-18 09:10:007.6[facility] HermannCHEM ONZHG9291-04-03 09:10:53650Scgjvcjq HermannCHEM BGMCT6821-47-06 09:10:0045[facility] HermannCHEM WGODP8172-18-67 09:10:001.69 [facility]annCHEM IUNRV7058-32-94 09:10:10589Snxykgim HermannCHEM PANEL 2019-07-05 09:10:003.7[facility] HermannCHEM MDVTK1846-26-07 09:10:24016Adwhbznv HermannCHEM SHZHH6000-83-26 09:10:0032[facility] HermannCHEM STTZI4852-25-98 09:10:007.6[facility] HermannCHEM QMCYE5868-19-16 09:10:008.7[facility] HermannCHEM NNXFE9645-90-65 09:10:0038[facility] HermannCHEM MBPPX0319-33-48 09:10:002.0 [facility] HermannCHEM JIEHN9851-99-19 09:10:003.7[facility] HermannHEMATOLOGY 2019-07-05 09:10:008.6[facility] CjcstwiEOJSCZOGVI6813-77-12 09:10:002.48[facility] UrddrwqJZIANZGEST6852-20-84 09:10:008.0[facility] TpjdixbLCOOATITHA8816-51-99 09:10:0024.1[facility] IquoefkWSFMHLIHWU0148-48-01 09:10:0097.1[facility] EOVNZSCZRB4601-83-14 09:10:00 Test Item Value Reference Range Interpretation Comments MCH (test code = MCH) 32.2 pg 27.0-31.0 [facility] GlzfvucLPCIDSGUGP2559-49-83 09:10:0033.2[facility] HermannHEMATOLOGY 2019-07-05 09:10:0016.5[facility] AdthisvRIJLWMFWJX0392-94-49 09:10:27094Qvtogskq UsxkbexZQIPKJTRGM0856-42-66 09:10:008.5[facility] HermannCARDIAC YGANXDM6163-66-95 00:33:000.07[facility] HermannCARDIAC YYPEBQV9809-96-80 00:33:91072Tlkmorvi HermannCHEM AZBHN5372-60-76 00:33:001.9[facility] HermannCHEM XJLES3313-41-27 00:33:003.4[facility] YsyhyoiXWYVFYPQYREJ7449-86-71 00:33:009.8[facility] YLRUQKEMUJKB2081-68-39 00:33:00 Test Item Value Reference Range Interpretation Comments B/C Ratio (test code = B/C Ratio) 24 1 6-25 [facility] KdohlafOXFGVFBDOJPW3555-02-04 00:33:002.3[facility] HermannELECTROLYTES 2019-07-05 00:33:00 Test Item Value Reference Range Interpretation Comments A/G Ratio (test code = A/G Ratio) 1.2 1 0.7-1.6 [facility] WzckwuqPFQQVYODGVRW7322-00-63 00:33:77811Bddasaew HermannELECTROLYTES 2019-07-05 00:33:0046[facility] KcmrkuaAQCEJTIOGEKA0951-25-90 00:33:001.90[facility] OxrvhanLUQWTAMVOZMU4617-16-74 00:33:34475Zdsidljx UuzqsgnPBDEHOUAFQEE7133-60-96 00:33:003.8[facility] PgsojvyHHGZAKVZEEFQ6550-26-07 00:33:95525Bedshkbi [place] XSJOEWODJFHS0976-79-48 00:33:0032[facility] WzkgujzVPVWSHAPTLPM3528-31-36 00:33:00 5.1[facility] NiasqlbCDHJGJIHIGYJ0153-57-34 00:33:002.8[facility] QPSBLLLECVQU0018-14-76 00:33:0021[facility] WljitebAKFPKOVLJEVY7895-63-56 00:33:00 23[facility] LamtlgvPBKYULQFXUZP8272-09-13 00:33:26518Wpbrxkku HermannELECTROLYTES 2019-07-05 00:33:001.6[facility] QxkkllnCENKGAODJQAF4887-29-33 00:33:0033[facility] KvolhfaFGZNMONFDL0658-65-53 00:33:00 Test Item Value Reference Range Interpretation Comments INR (test code = INR) 1.16 1 0.85-1.17 [facility] WqqiqifAOCALGAKLC1183-44-95 00:33:00 Test Item Value Reference Range Interpretation Comments PT (test code = PT) 14.6 s 12.0-14.7 [facility] PkrurfhXORVNYDJPB8082-03-16 00:33:00 Test Item Value Reference Range Interpretation Comments PTT (test code = PTT) 33.0 s 22.9-35.8 [facility] CtgoviuEIPXPRHCZX3219-96-13 00:33:0011.0[facility] HermannHEMATOLOGY 2019-07-05 00:33:002.89[facility] CzezfqzWXFZXSTISV9532-10-71 00:33:009.3[facility] YltletsNNPLHLWWEI5298-13-82 00:33:0027.9[facility] OlgyfvzYPNOANHOXV0772-34-51 00:33:0096.6[facility] ShazddxUSUVQWTTHN0995-70-32 00:33:00 Test Item Value Reference Range Interpretation Comments MCH (test code = MCH) 32.2 pg 27.0-31.0 [facility] AjywjbnZZOIDJHBOT7320-65-05 00:33:0033.3[facility] HermannHEMATOLOGY 2019-07-05 00:33:0016.9[facility] DnppxqlBFINNIJJHK9236-62-21 00:33:52499Kzjjzkap CqbaiykHCGQTOZVNT4800-14-98 00:33:008.4[facility] IeucbijXKUHJHHGBP3173-12-21 00:33:0066.emorial MgkwgafNSPSAJAEKL9373-03-51 00:33:0012.6[facility] [place] NSWZHJLYBP8012-09-65 00:33:0017.8[facility] RujappzKGROVLKFYQ2543-10-26 00:33:00 2.4[facility] XzihwhhAEUUALPVXQ9645-91-19 00:33:000.6[facility] HermannHEMATOLOGY 2019-07-05 00:33:007.4[facility] DnuhwkdYXRKNAXPWS8548-07-67 00:33:001.4[facility] RmjujexLCUOYNXRVI6018-12-66 00:33:002.0[facility] RbmcgsdTEVDUOPTKO9446-89-84 00:33:000.3[facility] JmegwomHVDMJDAMWU3491-61-78 00:33:000.1[facility] HermannURINE PDPL8557-84-35 23:37:0026[facility] HermannURINE KNGH8861-95-63 23:37:97470.00 [facility] HermannCHEM GJBAO1797-95-59 16:11:15466Pydmuyhd HermannCHEM PANEL 2019-07-02 16:11:0024[facility] HermannCHEM XRSBN3666-74-48 16:11:001.31[facility] HermannCHEM DGWHO2418-59-19 16:11:07900Gubvtlsw HermannCHEM CGHPC1988-52-31 16:11:004.1[facility] HermannCHEM UKNUZ3711-93-30 16:11:60730Afkubzvj HermannCHEM FYCJU0781-13-86 16:11:0031[facility] HermannCHEM QNOUQ7308-22-56 16:11:0010.1 [facility] HermannCHEM MOLNW7606-52-40 16:11:008.2[facility] HermannCHEM PANEL 2019-07-02 16:11:0052[facility] HermannCHEM LKZUJ4511-52-27 19:11:0092[facility] HermannCHEM SRUMZ2323-79-33 19:11:0021[facility] HermannCHEM EGKAI2161-64-88 19:11:001.45[facility] HermannCHEM DJUJV9996-29-45 19:11:77064Hvpjfejm HermannCHEM BXMYL1852-36-05 19:11:003.6[facility] HermannCHEM RFEPI9444-74-63 19:11:49154 [facility] HermannCHEM LAUOX1368-47-73 19:11:0030[facility] HermannCHEM PANEL 2019-07-01 19:11:008.1[facility] HermannCHEM CLXYZ5579-96-69 19:11:0010.6[facility] HermannCHEM AJXBX8201-70-62 19:11:0046[facility] HermannCARDIAC APOHCVJ7142-39-71 16:38:11898Bqnyexym HermannCHEM XUSVS7561-11-08 16:38:02374Bavpiefr HermannCHEM XUYUO2416-68-39 16:38:0016[facility] HermannCHEM SVFOB9927-40-30 16:38:001.12 [facility] HermannCHEM SUPTO3415-77-57 16:38:89823Elfzhwki HermannCHEM PANEL 2019-06-30 16:38:003.9[facility] HermannCHEM SOPLD2849-04-98 16:38:23576Xskkditg HermannCHEM JAYQX1941 16:38:0031[facility] HermannCHEM HJDQZ5768-83-33 16:38:008.1[facility] HermannCHEM AXCSP6435-98-23 16:38:005.0[facility] HermannCHEM BTORF8852-22-95 16:38:002.6[facility] HermannCHEM YZVSJ4542-68-34 16:38:0029 [facility] HermannCHEM RLUWD0593-10-17 16:38:0011[facility] HermannCHEM PANEL 2019-06-30 16:38:0092[facility] HermannCHEM DYAGA7441-07-21 16:38:001.7[facility] HermannCHEM TRUPF1081-12-38 16:38:008.9[facility] HermannCHEM JVRJI9545-66-50 16:38:00 Test Item Value Reference Range Interpretation Comments B/C Ratio (test code = B/C Ratio) 14 1 6-25 [facility] HermannCHEM HJHME1122-73-35 16:38:002.4[facility] HermannCHEM PANEL 2019-06-30 16:38:00 Test Item Value Reference Range Interpretation Comments A/G Ratio (test code = A/G Ratio) 1.1 1 0.7-1.6 [facility] HermannCHEM CHGPR9070-86-78 16:38:0063[facility] HermannHEMATOLOGY 2019-06-30 16:38:009.0[facility] GzzxlehNBLGKSVPJW0464-73-48 16:38:002.65[facility] EabfpzkXQPDOPLXAX4543-25-09 16:38:008.5[facility] NvhkjxfQPKLYIVKFN8538-74-20 16:38:0024.6[facility] TelsndmIZTNEUCBMO6144-26-74 16:38:0092.6[facility] [place] EIAOFFVIQQ4580-67-81 16:38:00 Test Item Value Reference Range Interpretation Comments MCH (test code = MCH) 32.2 pg 27.0-31.0 [facility] JbhhcrdDDVGFYYHRL6682-28-13 16:38:0034.7[facility] HermannHEMATOLOGY 2019-06-30 16:38:0014.8[facility] DvqeegsFSSKIAKSTF9829-56-78 16:38:88578Jhkdsoyp XtzfaopSLNMSEUHKJ8353-27-39 16:38:008.5[facility] JnjyezzLZQRMWDSTN6350-37-14 18:44:009.6[facility] XjxoylwCPVWKZUQUA6048-71-53 18:44:003.10[facility] [place] AJTZKLOAVH0547-28-44 18:44:0010.0[facility] LiptiyzMPYPWBONPX9770-67-34 18:44:00 29.0[facility] BuuatcrFIEWRBTLTN7772-70-02 18:44:0093.5[facility] HermannHEMATOLOGY 2019-06-29 18:44:00 Test Item Value Reference Range Interpretation Comments MCH (test code = MCH) 32.1 pg 27.0-31.0 [facility] QnpaxedVQDALZBZAF2817-66-03 18:44:0034.4[facility] HermannHEMATOLOGY 2019-06-29 18:44:0014.9[facility] QebsqvcFZGKOLYXBF0202-22-99 18:44:22128Udnczouu RsnwyibPDSLGVCRUP7941-87-34 18:44:008.6[facility] ErexjvaGEGCFDHPNC8787-30-54 18:44:0067.8[facility] EyioinpXIPVZLSOYD7063-21-76 18:44:0014.0[facility] [place] ZLORTWISVT3218-76-95 18:44:0015.7[facility] DzpdzbtDEJUUTLVDN2151-90-86 18:44:00 2.2[facility] HtcsygiEZHZDRSOIU5741-73-63 18:44:000.3[facility] HermannHEMATOLOGY 2019-06-29 18:44:006.5[facility] LvddovpLQJRFZGUNQ9259-68-31 18:44:001.3[facility] CphdawkPQXYCKDHNV4090-22-51 18:44:001.5[facility] GqrnbzpMDMIBQTEUT0357-31-13 18:44:000.2[facility] HermannCHEM OTBPJ3708-82-61 10:37:002.4[facility] HermannCHEM MXVRW0191-86-03 10:37:001.5[facility] WdopcsdFCOVWIAYDT4674-05-25 10:37:0061.5 [facility] FteyowuWANKACSPPZ1873-33-67 10:37:0018.4[facility] HermannHEMATOLOGY 2019-06-29 10:37:0017.5[facility] CraoduuFIARSMRSUJ5128-70-41 10:37:002.2[facility] VpmohvsYENGWCXKIU7952-70-86 10:37:000.4[facility] FkyhxbrQNBTQPJUQU5460-31-12 10:37:005.5[facility] HnwupvgGKNFJEFOII6209-45-61 10:37:001.7[facility] [place] JSFGZHEUBH5012-21-02 10:37:001.6[facility] HtknitnPCPAZLWWVY0627-86-06 10:37:000.2 [facility] NrsxfbcCTLCIKVEAU6806-10-42 10:37:009.0[facility] HermannHEMATOLOGY 2019-06-29 10:37:002.54[facility] JwspphuPIYYSESFBE9767-83-78 10:37:008.2[facility] OcjzoumNMWQPBLEDV4644-92-78 10:37:0023.3[facility] QlgxjbfSLPWVIOEVD8619-37-76 10:37:0091.6[facility] GhrwnosYXBZNMQIGF3722-72-65 10:37:00 Test Item Value Reference Range Interpretation Comments MCH (test code = MCH) 32.1 pg 27.0-31.0 [facility] CdiehrbAIKSTWCSTH6987-62-09 10:37:0035.1[facility] HermannHEMATOLOGY 2019-06-29 10:37:0014.9[facility] EerfhnpQBOICGUSZX1038-48-67 10:37:60376Mwhupirx SswbuufTGKGFXOZWG9261-64-44 10:37:008.0[facility] HermannBLOOD BANK RESULTS 2019-06-28 20:52:00Product available (06/28/19 3:52 PM)[facility]annBLOOD BANK XEEVOUT6409-04-33 20:11:00Product available 4(06/28/19 3:11 PM)[facility] [place] BLOOD BANK NXLRNQE6826-19-48 13:27:00Negative (06/28/19 8:27 AM)[facility] BLOOD BANK PYADIAH9537-94-19 13:05:00Product available 5(06/28/19 8:05 AM) [facility] HermannCHEM CKYXR3321-63-37 10:38:002.0[facility] HermannCHEM PANEL 2019-06-28 10:38:002.6[facility] DuajnbyYBBMCKTJQQ1588-16-81 10:38:0070.8[facility] AfjreqvLWRKQLZJWX6541-88-95 10:38:0013.5[facility] IlcpviyKSBZOMVTAN0966-11-04 10:38:0015.1[facility] BbmfjzzIHBHRPIKKK0956-65-02 10:38:000.5[facility] DHNIMTGMCX0409-23-99 10:38:000.1[facility] VznfjknVYSMZHOSNB8765-94-05 10:38:009.3 [facility] KjaflncIQTLPSUELZ6313-88-75 10:38:001.8[facility] HermannHEMATOLOGY 2019-06-28 10:38:002.0[facility] ZtxocxfUOAVOSQHUO5353-78-57 10:38:000.1[facility] HermannCHEM RPJOD5395-40-82 23:14:002.2[facility] HermannCHEM DDFLF2721-93-69 23:14:003.3[facility] HermannCARDIAC JFKSXOU3276-20-38 23:30:000.03[facility] HermannPARATHYROID PHDCDCM7303-94-88 19:47:001.08[facility] HermannPARATHYROID KNBKBCJ8401-62-70 19:47:001.10[facility] JXIDXDM9834-63-15 16:13:00Negative (06/23/19 11:13 AM)[facility]jmfgpzVPETNHJAJW4123-96-35 16:13:00 Test Item Value Reference Range Interpretation Comments INR (test code = INR) 1.17 1 0.85-1.17 [facility]udaZvdbqyyPGCTYWWTRV9812-97-40 16:13:00 Test Item Value Reference Range Interpretation Comments PT (test code = PT) 14.7 s 12.0-14.7 [facility] BudaTlllscvRMVDMSSGYU4096-03-92 16:13:00 Test Item Value Reference Range Interpretation Comments PTT (test code = PTT) 30.8 s 22.9-35.8 [facility] BudaCaucqmfOBQSDZGMIN9976-51-31 16:13:000.1[facility] [place]
--- NOTE | 2020-10-31 11:44 | RAD REPORT ---
EXAM DESCRIPTION: RAD - Pelvis - 10/31/2020 10:26 am CLINICAL HISTORY: Pelvic pain status post injury FINDINGS: Intertrochanteric fracture left femur involves the lesser and greater trochanters. Fractu re fragments by about 1 centimeter. No dislocation. Osteoporosis
--- NOTE | 2020-10-31 11:44 | RAD REPORT ---
EXAM DESCRIPTION: RAD - Hip Left 2 View - 10/31/2020 10:27 am CLINICAL HISTORY: Left hip pain status post injury FINDINGS: Intertrochanteric fracture left femur involves the lesser and greater trochanters. Fracture fragments by about 1 centimeter. No dislocation. Osteoporosis
--- NOTE | 2020-10-31 11:55 | RAD REPORT ---
EXAM DESCRIPTION: Roxane Single View10/31/2020 10:27 am CLINICAL HISTORY: Preop for hip fracture COMPARISON: September 2020 FINDINGS: The lungs appear clear of acute infiltrate. The heart is normal size IMPRESSION: No acute abnormalities displayed
[2020-10-31] MEDS ORDERED: HYDROMORPHONE HCL 1 MG/ML INJ ONE ×2 (12:09→13:27)
[2020-10-31] MEDS ORDERED: NA CHLORIDE 0.9% 100 ML ONE (12:09)
--- NOTE | 2020-10-31 13:14 | ER ---
Nurse's Notes [facility] Name: Mahnaz Baptiste Age: 80 yrs Sex: Male : 1940 Arrival Date: 10/31/2020 Time: 09:08 Bed 4 Private MD: Diagnosis: Intertrochanteric fracture of femur Presentation: 10/31 09:13 Chief complaint: Spouse and/or significant other states: He fell while getting out of 7 the wheelchair into the car, unsure what made him fall, denies LOC, denies hitting head, c/o left hip pain. Care prior to arrival: None. Mechanism of Injury: Fall from standing position. Trauma event details: Injury occurred in the [facility]. 09:13 Acuity: ZIA 3 jl7 09:13 Method Of Arrival: Stretcher 7 09:17 Coronavirus screen: Client denies travel out of the [place] in the last 14 days. At this jl7 time, the client does not indicate any symptoms associated with coronavirus-19. Ebola Screen: No symptoms or risks identified at this time. Initial Sepsis Screen: Does the patient meet any 2 criteria? No. Patient's initial sepsis screen is negative. Does the patient have a suspected source of infection? No. Patient's initial sepsis screen is negative. Risk Assessment: Do you want to hurt yourself or someone else? Patient reports no desire to harm self or others. Onset of symptoms was October 31, 2020. Trauma Activation: Not Applicable Physician: ED Physician; Name: ; Notified At: ; Arrived At: Physician: General Surgeon; Name: ; Notified At: ; Arrived At: Physician: Radiology; Name: ; Notified At: ; Arrived At: Physician: Respiratory; Name: ; Notified At: ; Arrived At: Physician: Lab; Name: ; Notified At: ; Arrived At: Historical: - Allergies: 09:11 Morphine; tw2 - Home Meds: 09:20 aspirin 81 mg Oral tab 1 tab once daily [Active]; metoprolol tartrate 25 mg Oral tab jl7 0.5 tab once daily [Active]; oxycodone 80 mg Oral TR12 1 tab three times a day [Active]; gabapentin 600 mg Oral tab 1 tab 3 times per day [Active]; Humalog Mix 75-25 100 unit/mL (75-25) Sub-Q susp [Active]; - PMHx: 09:11 neuropathy; Myocardial infarction; Hypertension; Chronic pain; tw2 - PSHx: 09:11 Knee surgery; Fentanyl Pain Pump; AMPUTATED FINGER; Left leg bypass; Heart stents; BACK tw2 SURGERY x 5; - Immunization history:: Adult Immunizations. - Social history:: Smoking status: . - Immunization history: Last tetanus immunization: unknown. Screenin:13 Abuse screen: Denies threats or abuse. Denies injuries from another. Tuberculosis jl7 screening: No symptoms or risk factors identified. 09:18 Nutritional screening: No deficits noted. Fall Risk Fall in past 12 months (25 points). jl7 Total Washington Fall Scale indicates High Risk Score (45 or more points). Fall prevention measures have been instituted. Side Rails Up X 2 Placed Close to Nursing Station Frequent Obs/Assessments Occuring Family Present and informed to notify staff if the need to leave the bedside As available patient and family educated on Fall Prevention Program and Strategies. Primary Survey: 09:13 NO uncontrolled hemorrhage observed. Breathing/Chest: Respiratory pattern: regular, jl7 Respiratory effort: spontaneous, unlabored, Chest inspection: symmetrical rise and fall of the chest. Circulation: Skin color: pink, Skin temperature: warm. Disability Alert. Exposure/Environment: All clothing and personal items were removed. Forensic evidence collection is not deemed to be indicated at this time. Items placed in patient belonging bag. A warming method has been applied: A warm blanket has been provided to the patient. 11:33 Reassessment Airway Airway Patent Breathing/Chest Respiratory pattern Regular tw2 Respiratory effort Spontaneous Unlabored Breath sounds Clear Chest inspection Symmetrical Circulation Heart tones Present Disability Alert. Assessment: 09:13 General: Appears in no apparent distress. uncomfortable, Behavior is cooperative, jl7 appropriate for age, anxious. Pain: Complains of pain in left hip Pain currently is 10 out of 10 on a pain scale. Neuro: Level of Consciousness is awake, alert, obeys commands, Oriented to person, place, time, situation. Cardiovascular: Patient's skin is warm and dry. Respiratory: Airway is patent Respiratory effort is even, unlabored, Respiratory pattern is regular, symmetrical. Derm: Skin is pink, warm \T\ dry. Injury Description: small skin tear to right hand. 10:00 Reassessment: Patient appears in no apparent distress at this time. No changes from [facility] previously documented assessment. Patient and/or family updated on plan of care and expected duration. Pain level reassessed. Patient is alert, oriented x 3, equal unlabored respirations, skin warm/dry/pink. 11:00 Reassessment: Patient appears in no apparent distress at this time. No changes from [facility] previously documented assessment. Patient and/or family updated on plan of care and expected duration. Pain level reassessed. Patient is alert, oriented x 3, equal unlabored respirations, skin warm/dry/pink. 11:45 Reassessment: Pt reports increased pain, ERD notified, see MAR for orders. jl7 Vital Signs: 09:13 BP 144 / 88; Pulse 88; Resp 19; Temp 97; Pulse Ox 98% ; Weight 78.47 kg; Height 5 ft. 9 jl7 in. (175.26 cm); Pain 10/10; 11:00 BP 105 / 34; Pulse 61; Resp 17; Pulse Ox 95% on R/A; tw2 11:33 BP 106 / 57; Pulse 80; Resp 17; Pulse Ox 95% on R/A; tw2 12:17 BP 113 / 49; Pulse 78; Resp 22; Pulse Ox 95% on R/A; tw2 12:43 Pain 10/10; tw2 13:03 BP 123 / 93; Pulse 83; Resp 22; Pulse Ox 96% on R/A; tw2 14:27 BP 116 / 81; Pulse 70; Resp 15; Pulse Ox 99% ; jl7 09:13 Body Mass Index 25.55 (78.47 kg, 175.26 cm) 7 Troy Coma Score: 09:13 Eye Response: spontaneous(4). Verbal Response: oriented(5). Motor Response: obeys jl7 commands(6). Total: 15. 11:00 Eye Response: spontaneous(4). Verbal Response: oriented(5). Motor Response: obeys tw2 commands(6). Total: 15. Trauma Score (Adult): 09:13 Eye Response: spontaneous(1); Verbal Response: oriented(1); Motor Response: obeys jl7 commands(2); Systolic BP: > 89 mm Hg(4); Respiratory Rate: 10 to 29 per min(4); Shelley Score: 15; Trauma Score: 12 11:00 Eye Response: spontaneous(1); Verbal Response: oriented(1); Motor Response: obeys tw2 commands(2); Systolic BP: > 89 mm Hg(4); Respiratory Rate: 10 to 29 per min(4); Troy Score: 15; Trauma Score: 12 ED Course: 09:05 Placed in gown. Bed in low position. Adult w/ patient. bus monitor on. Pulse ox on. tw2 NIBP on. Warm blanket given. 09:08 Patient arrived in ED. iw 09:11 [facility] jr[facility] 09:11 Randall Mane MD is Attending Physician. jr8 09:12 Arm band placed on. tw2 09:13 Yimi Gamez RN is Primary Nurse. jl7 09:13 Patient maintains SpO2 saturation greater than 95% on room air. Thermoregulation: warm jl7 blanket given to patient. 09:15 Triage completed. jl7 09:35 Missed attempt(s): 20 gauge in left wrist. Bleeding controlled, band aid applied, jl7 catheter tip intact. 09:40 Initial lab(s) drawn, by fl, sent to lab. Inserted saline lock: 20 gauge in left jl7 antecubital area, using aseptic technique. Blood collected. 10:34 XRAY Pelvis In Process Unspecified. EDMS 10:34 XRAY Hip LEFT 2 view In Process Unspecified. EDMS 10:34 XRAY Chest (1 view) In Process Unspecified. EDMS 12:00 initiated a transfer with Sunitha Torre from the [facility] [place]. eb 12:08 COVID swab sent to lab. jl7 12:[address] Alegre the hospitalist conditioning coach for [facility] with Cuauhtemoc Soler for patient transfer consultation. 13:07 administrative approval given by Sunitha Torre / patient has been accepted to [facility] rm [id number]/ Dr. Alegre has accepted the patient in transfer/ report to be called to the transfer center [phone]. 14:57 No provider procedures requiring assistance completed. Patient transferred, IV remains jl7 in place. intact, No redness/swelling at site. Administered Medications: 09:49 Drug: fentaNYL (PF) 50 mcg Route: IVP; Site: left antecubital; jl7 10:05 Follow up: Response: No adverse reaction; Pain is decreased jl7 09:49 Drug: Zofran (Ondansetron) 4 mg Route: IVP; Site: left antecubital; jl7 11:59 Follow up: Response: No adverse reaction jl7 11:58 Drug: Dilaudid 1 mg Route: IVP; Site: left antecubital; jl7 12:42 Follow up: Response: No adverse reaction; Pain is unchanged, physician notified tw2 12:43 Follow up: Pain 10/10 Adult; RASS 0 tw2 13:10 Drug: Dilaudid 1 mg Route: IVP; Site: left antecubital; jl7 13:30 Follow up: Response: No adverse reaction; Pain is unchanged, physician notified jl7 14:45 Drug: Valium 5 mg Route: IVP; Site: left antecubital; jl7 14:55 Follow up: Response: No adverse reaction; Marked relief of symptoms jl7 Intake: Output: 12:17 Urine: 200ml (Voided); Total: 200ml. tw2 Outcome: 13:14 ER care complete, transfer ordered by . jr8 14:57 Transferred by ground EMS to [facility], Transfer form completed. jl7 X-rays sent w/ patient. 14:57 Condition: stable 14:57 Discharge instructions given to patient, family, Instructed on the need for transfer, Demonstrated understanding of instructions. 14:57 Patient's length of stay was not longer than 2 hours. jl7 14:58 Patient left the ED. jl7 Signatures: Dispatcher [employer] EDMS Chastity Dinh, Cuauhtemoc Ornelas RN, PA PA jr8 Kimmy Salguero RN RN tw2 Yimi Gamez RN RN jl7 Sunitha Franks
--- NOTE | 2020-10-31 13:14 | EDPHYS ---
Physician Documentation [facility] Name: Mahnaz Baptiste Age: 80 yrs Sex: Male : 1940 Arrival Date: 10/31/2020 Time: 09:08 Bed 4 Private MD: ED Physician Randall Mane HPI: 10/31 12:18 This 80 yrs old Male presents to ER via Stretcher with complaints of Fall jr8 Injury. 12:18 Details of fall: The patient fell from seated position, out of a wheelchair. Onset: The jr8 symptoms/episode began/occurred acutely, today. Associated injuries: The patient sustained left leg. Severity of symptoms: At their worst the symptoms were moderate, in the emergency department the symptoms are unchanged. The patient has not experienced similar symptoms in the past. The patient has not recently seen a physician. Patient stated that he was transferring from wheelchair to car and fell landing on left side. Hit head but stated that it was minor and denies pain. Denies blood thinners. Stated that pain is all to left hip region. Historical: - Allergies: 09:11 Morphine; tw2 - Home Meds: 09:20 aspirin 81 mg Oral tab 1 tab once daily [Active]; metoprolol tartrate 25 mg Oral tab jl7 0.5 tab once daily [Active]; oxycodone 80 mg Oral TR12 1 tab three times a day [Active]; gabapentin 600 mg Oral tab 1 tab 3 times per day [Active]; Humalog Mix 75-25 100 unit/mL (75-25) Sub-Q susp [Active]; - PMHx: 09:11 neuropathy; Myocardial infarction; Hypertension; Chronic pain; tw2 - PSHx: 09:11 Knee surgery; Fentanyl Pain Pump; AMPUTATED FINGER; Left leg bypass; Heart stents; BACK tw2 SURGERY x 5; - Immunization history:: Adult Immunizations. - Social history:: Smoking status: . - Immunization history: Last tetanus immunization: unknown. ROS: 12:18 Eyes: Negative for injury, pain, redness, and discharge, ENT: Negative for injury, jr8 pain, and discharge, Neck: Negative for injury, pain, and swelling, Cardiovascular: Negative for chest pain, palpitations, and edema, Respiratory: Negative for shortness of breath, cough, wheezing, and pleuritic chest pain, Abdomen/GI: Negative for abdominal pain, nausea, vomiting, diarrhea, and constipation, Back: Negative for injury and pain, Skin: Negative for injury, rash, and discoloration, Neuro: Negative for headache, weakness, numbness, tingling, and seizure. 12:18 MS/extremity: Positive for decreased range of motion, pain, tenderness, of the left hip. Exam: 12:18 Head/Face: Normocephalic, atraumatic. Eyes: Pupils equal round and reactive to light, jr8 extra-ocular motions intact. Lids and lashes normal. Conjunctiva and sclera are non-icteric and not injected. Cornea within normal limits. Periorbital areas with no swelling, redness, or edema. ENT: Nares patent. No nasal discharge, no septal abnormalities noted. Tympanic membranes are normal and external auditory canals are clear. Oropharynx with no redness, swelling, or masses, exudates, or evidence of obstruction, uvula midline. Mucous membranes moist. Neck: Trachea midline, no thyromegaly or masses palpated, and no cervical lymphadenopathy. Supple, full range of motion without nuchal rigidity, or vertebral point tenderness. No Meningismus. Chest/axilla: Normal chest wall appearance and motion. Nontender with no deformity. No lesions are appreciated. Cardiovascular: Regular rate and rhythm with a normal S1 and S2. No gallops, murmurs, or rubs. Normal PMI, no JVD. No pulse deficits. Respiratory: Lungs have equal breath sounds bilaterally, clear to auscultation and percussion. No rales, rhonchi or wheezes noted. No increased work of breathing, no retractions or nasal flaring. Abdomen/GI: Soft, non-tender, with normal bowel sounds. No distension or tympany. No guarding or rebound. No evidence of tenderness throughout. Back: No spinal tenderness. No costovertebral tenderness. Full range of motion. Skin: Warm, dry with normal turgor. Normal color with no rashes, no lesions, and no evidence of cellulitis. Neuro: Awake and alert, GCS 15, oriented to person, place, time, and situation. Cranial nerves II-XII grossly intact. Motor strength 5/5 in all extremities. Sensory grossly intact. Cerebellar exam normal. Normal gait. 12:18 Musculoskeletal/extremity: Extremities: grossly normal except: noted in the left hip: decreased ROM, pain, tenderness, ROM: limited active range of motion, limited passive range of motion, limited active range of motion due to pain, limited passive range of motion due to pain, Circulation is intact in all extremities. Pulses: noted to be 2+ in the right radial artery, right posterior tibial artery, right dorsalis pedis artery, left radial artery, left posterior tibial artery and left dorsalis pedis artery, Sensation intact. Vital Signs: 09:13 BP 144 / 88; Pulse 88; Resp 19; Temp 97; Pulse Ox 98% ; Weight 78.47 kg; Height 5 ft. 9 jl7 in. (175.26 cm); Pain 10/10; 11:00 BP 105 / 34; Pulse 61; Resp 17; Pulse Ox 95% on R/A; tw2 11:33 BP 106 / 57; Pulse 80; Resp 17; Pulse Ox 95% on R/A; tw2 12:17 BP 113 / 49; Pulse 78; Resp 22; Pulse Ox 95% on R/A; tw2 12:43 Pain 10/10; tw2 13:03 BP 123 / 93; Pulse 83; Resp 22; Pulse Ox 96% on R/A; tw2 14:27 BP 116 / 81; Pulse 70; Resp 15; Pulse Ox 99% ; jl7 09:13 Body Mass Index 25.55 (78.47 kg, 175.26 cm) jl7 Shelley Coma Score: 09:13 Eye Response: spontaneous(4). Verbal Response: oriented(5). Motor Response: obeys jl7 commands(6). Total: 15. 11:00 Eye Response: spontaneous(4). Verbal Response: oriented(5). Motor Response: obeys tw2 commands(6). Total: 15. Trauma Score (Adult): 09:13 Eye Response: spontaneous(1); Verbal Response: oriented(1); Motor Response: obeys jl7 commands(2); Systolic BP: > 89 mm Hg(4); Respiratory Rate: 10 to 29 per min(4); Boyd Score: 15; Trauma Score: 12 11:00 Eye Response: spontaneous(1); Verbal Response: oriented(1); Motor Response: obeys tw2 commands(2); Systolic BP: > 89 mm Hg(4); Respiratory Rate: 10 to 29 per min(4); Boyd Score: 15; Trauma Score: 12 MDM: 09:11 Patient medically screened. jr8 12:18 Data reviewed: vital signs, nurses notes, lab test result(s), radiologic studies, plain jr8 films. Data interpreted: Pulse oximetry: on room air is 95 %. Interpretation: normal. Counseling: I had a detailed discussion with the patient and/or guardian regarding: the historical points, exam findings, and any diagnostic results supporting the discharge/admit diagnosis, lab results, radiology results, the need to transfer to another facility, [facility] does not immediately have the required specialist. 10/31 09:17 Order name: CBC with Diff; Complete Time: 09:52 jr8 10/31 09:17 Order name: Basic Metabolic Panel; Complete Time: 10:00 jr8 10/31 09:17 Order name: Protime (+inr); Complete Time: 09:52 jr8 10/31 09:17 Order name: Ptt, Activated; Complete Time: 09:52 [facility] 10/31 12:59 Order name: SARS-COV-2 RT PCR; Complete Time: 13:00 EDMS 10/31 09:17 Order name: XRAY Pelvis; Complete Time: 11:53 jr8 10/31 09:17 Order name: XRAY Hip LEFT 2 view; Complete Time: 11:53 jr8 10/31 10:18 Order name: XRAY Chest (1 view); Complete Time: 12:02 jr8 10/31 09:17 Order name: IV; Complete Time: 09:39 jr8 Administered Medications: 09:49 Drug: fentaNYL (PF) 50 mcg Route: IVP; Site: left antecubital; jl7 10:05 Follow up: Response: No adverse reaction; Pain is decreased jl7 09:49 Drug: Zofran (Ondansetron) 4 mg Route: IVP; Site: left antecubital; jl7 11:59 Follow up: Response: No adverse reaction jl7 11:58 Drug: Dilaudid 1 mg Route: IVP; Site: left antecubital; jl7 12:42 Follow up: Response: No adverse reaction; Pain is unchanged, physician notified tw2 12:43 Follow up: Pain 10/10 Adult; RASS 0 tw2 13:10 Drug: Dilaudid 1 mg Route: IVP; Site: left antecubital; jl7 13:30 Follow up: Response: No adverse reaction; Pain is unchanged, physician notified jl7 14:45 Drug: Valium 5 mg Route: IVP; Site: left antecubital; jl7 14:55 Follow up: Response: No adverse reaction; Marked relief of symptoms jl7 Disposition: 15:10 Co-signature as Attending Physician, Randall Mane MD. rn Disposition: 10/31/20 13:14 Transfer ordered to [facility]. Diagnosis is Intertrochanteric fracture of femur. - Reason for transfer: Higher level of care. - Accepting physician is Dr. Alegre. - Condition is Stable. - Problem is new. - Symptoms have improved. Signatures: Dispatcher [employer] EDMS Randall Mane MD MD rn Roszak, Josh, PA PA jr8 Kimmy Salguero RN RN tw2 Yimi Gamez RN RN jl7 Sunitha Franks Corrections: (The following items were deleted from the chart) 12:22 12:09 CORONAVIRUS+MR.LAB.BRZ ordered. [facility] 14:37 13:14 10/31/2020 13:14 Transfer ordered to [facility]. eb Diagnosis is Intertrochanteric fracture of femur. Reason for transfer: Higher level of care. Accepting physician is Dr. Josue. Condition is Stable. Problem is new. Symptoms have improved. jr8 14:58 14:37 10/31/2020 13:14 Transfer ordered to [facility]. jl7 Diagnosis is Intertrochanteric fracture of femur. Reason for transfer: Higher level of care. Accepting physician is Dr. Alegre. Condition is Stable. Problem is new. Symptoms have improved. eb
[2020-10-31] MEDS ORDERED: HYDROMORPHONE HCL 2 MG/ML inj ONE (14:49)
[2020-10-31] MEDS ORDERED: DIAZEPAM 10 MG/2 ML INJ SYRINGE ONE (14:57)
[2020-11-01 22:57] VITALS: TEMP 97
[2020-11-01 23:04] VITALS: BP 116/81; O2SAT 99
== END 2020-10-31 14:58 | disposition short-term general hospital (02) ==
LOC: ER 09:05
DX: S72.142A Displaced intertrochanteric fracture of left femur, initial encounter for closed fracture (principal); W05.0XXA Fall from non-moving wheelchair, initial encounter; Y93.89 Activity, other specified; Y92.9 Unspecified place or not applicable; Z20.828 Contact with and (suspected) exposure to other viral communicable diseases; I10 Essential (primary) hypertension; Z79.82 Long term (current) use of aspirin; Z88.5 Allergy status to narcotic agent; Z95.818 Presence of other cardiac implants and grafts
CPT/HCPCS: 85025; 80048; 36415; 85610; 85730; 71045; 72170; 73502; 96375; 96374; 99285; U0003; J2405; J1170; J3010; J3360; J7030

== ENCOUNTER 2021-01-15 07:26 | Inpatient (IN) | payer OTHER, BC ==
--- OUTSIDE RECORDS SUMMARY | 2021-01-15 07:32 | XMS REPORT | Continuity of Care Document ---
:1940 Author Organization [facility] t Address [address] [place] [address] Care Team Providers Name Role Phone Alex Chirinos LMSW Attending Clinician Brannon GAGNON Attending Clinician Zee Davis MD Attending Clinician Ernesto Moreno MD Attending Clinician Jamaica Chapman MD Attending Clinician Ronald Be MD Attending Clinician Giovanni GAGNON Attending Clinician BRANNON Attending Clinician Unavailable Chuckie Sena Attending Clinician Simeon Parisi Attending Clinician Abel Cunningham Attending Clinician ZEE DAVIS Admitting Clinician Unavailable Simeon Parisi Admitting Clinician Abel Cunningham Admitting Clinician Payers Payer Name Policy Type Policy Effective Date Expiration Date Sour ce Number MEDICAREMEDICARE A [id number] 1998 MARGARITA Bella [id number] 1997-P 00:00:00 - Medical resentMedicare Center BLUE CROSS/BLUE [id number] 2017 MARGARITA MonetBCBS PPO POS EPO 0 00:00:00 - Medical [id number] [id number], [place] [id number] Problems Condition Condition Condition Status Onset Resolution Last Treating Co mments Source Name Details Category Date Date Treatment Clinician Date Closed Closed Disease Active 2019-[address] [facility] intertroch intertroch 2-21 Annalee kes - anteric anteric 00:00: Medical fracture fracture 00 Center of left of left hip hip 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 00:[facility]: Medical involving involving 00 Cent er [place] coronary coronary artery of artery of [place] heart heart without without angina angina pectoris pectoris 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 [facility] - mellitus mellitus 00:00: Medica l with stage with stage 00 Ce nter 3 chronic 3 chronic kidney kidney disease, disease, with with long-term long-term current current use of use of insulin insulin Chronic Chronic Disease Active 2019-[address] [facility] atrial atrial 2-21 [facility] - fibrillati fibrillati 00:00: Me dical on on 00 Center Age Age Disease Active 2019-[address] [facility] related related 2-21 [facility] - osteoporos osteoporos 00:00: Me dical is is 00 Center Chronic Chronic Disease Active 2019-[address] [facility] low back low back 2-21 [facility] - pain pain 00:00: Medical 00 Center HYPOTENSIO Diagnosis Active 2019-07-23 Memoria N 8-24 22:09:00 l 00:00: [place] HYPOTENSIO 00 N Active 07/04/2019 [facility] DEHYDRATIO Diagnosis Active 2019-07-04 Memoria N, RENAL 07-04 17:34:00 l FAILURE, 00:00: Jeremias HYPOTENSIO DEHYDRATIO 00 N N, RENAL FAILURE, HYPOTENSIO N Active 07/04/2019 [facility] PVD Diagnosis Active 2019-07-06 Mem oria 8 21:56:00 l PVD 00:00: Jeremias 00 Active 06/22/2019 [facility] UNK Diagnosis Active 2019-06-23 Mem oria 8 19:27:00 l UNK 00:00: [place] 00 Active 06/22/2019 [facility] Dehydratio Problem 2019-07-08 M emoria n 22:19:55 l Jeremias Dehydratio n 07/08/2019 [facility] Chronic Problem Resolve 2020-07-21 Mem oria pain d 21:21:18 l (finding) Chronic Herm jonas pain (finding) Resolved Problem 07/21/2020 legs and feet, back [facility] Cervical Problem Active 2020-07-21 Mem oria spondylosi 21:21:18 l s Cervical Telly n (disorder) spondylosi s (disorder) Active Problem 07/21/2020 [facility] Cervico-oc Problem Active 2020-07-21 M emoria cipital 21:21:18 l neuralgia [place] (finding) Cervico-oc cipital neuralgia (finding) Active Problem 07/21/2020 [facility] Chronic Problem Active 2020-07-21 Gabe carolynn back pain 21:21:18 l (disorder) Chronic Her bruno back pain (disorder) Active Problem 07/21/2020 [facility] Chronic Problem Active 2020-07-21 Gabe carolynn kidney 21:21:18 l disease Chronic Telly n stage 3 kidney (disorder) disease stage 3 (disorder) Active Problem 07/21/2020 [facility] Confusiona Problem Active 2020-07-21 M emoria l state 21:21:18 l (disorder) Telly n Confusiona l state (disorder) Active Problem 07/21/2020 [facility] Coronary Problem Active 2020-07-21 [facility] oria arterioscl 21:21:18 l erosis Coronary Telly n (disorder) arterioscl erosis (disorder) Active Problem 07/21/2020 [facility] Diabetes Problem Active 2020-07-21 [facility] oria mellitus 21:21:18 l (disorder) Diabetes He rmann mellitus (disorder) Active Problem 07/21/2020 [facility] Essential Problem Active 2020-07-21 Me moria hypertensi 21:21:18 l on Jeremias (disorder) Essential hypertensi on (disorder) Active Problem 07/21/2020 [facility] Gastroesop Problem Active 2020-07-21 M emoria hageal 21:21:18 l reflux [place] disease Gastroesop (disorder) hageal reflux disease (disorder) Active Problem 07/21/2020 [facility] Generalize Problem Active 2020-07-21 M emoria d anxiety 21:21:18 l disorder Jeremias (disorder) Generalize d anxiety disorder (disorder) Active Problem 07/21/2020 [facility] Headache Problem Active 2020-07-21 Mem oria (finding) 21:21:18 l Headache Telly n (finding) Active Problem 07/21/2020 [facility] Hyperlipid Problem Active 2020-07-21 M emoria emia 21:21:18 l (disorder) Telly n Hyperlipid emia (disorder) Active Problem 07/21/2020 [facility] Insomnia Problem Active 2020-07-21 Mem oria (disorder) 21:21:18 l Insomnia Telly n (disorder) Active Problem 07/21/2020 [facility] Obstructiv Problem Active 2020-07-21 M emoria e sleep 21:21:18 l apnea Jeremias syndrome Obstructiv (disorder) e sleep apnea syndrome (disorder) Active Problem 07/21/2020 [facility] Osteoarthr Problem Active 2020-07-21 M emoria itis 21:21:18 l (disorder) Telly n Osteoarthr itis (disorder) Active Problem 07/21/2020 [facility] Peripheral Problem Active 2020-07-21 M emoria nerve 21:21:18 l disease Jeremias (disorder) Peripheral nerve disease (disorder) Active Problem 07/21/2020 [facility] Tremor Problem Active 2020-07-21 Memor ia (finding) 21:21:18 l Tremor [place] (finding) Active Problem 07/21/2020 [facility] Neuro HYPOTENSIO Diagnosis Active 2019-07-23 Memoria N, 22:09:00 l UNSPECIFIE Telly n D HYPOTENSIO N, UNSPECIFIE D Active [facility] DEHYDRATIO Diagnosis Active 2019-07-04 Memoria N 17:34:00 l Jeremias DEHYDRATIO N Active [facility] PERIPHERAL Diagnosis Active 2019-07-06 Memoria VASCULAR 21:56:00 l DISEASE, Jeremias UNSPECIFIE PERIPHERAL D VASCULAR DISEASE, UNSPECIFIE D Active [facility] Nerve Problem Resolve 1995-0 2020-07-21 2020-07-21 Memoria injury d 8-12 21:21:18 21:21:18 l (disorder) Nerve 00:00: Pilar nn injury 00 (disorder) Resolved 06/22/1995 Problem 07/21/2020 [facility] Hypertensi Problem Resolve 1987-0 2020-07-21 2020-07-21 Memoria ve d 8-12 21:21:18 21:21:18 l disorder, 00:00: [place] systemic Hypertensi 00 arterial ve (disorder) disorder, systemic arterial (disorder) Resolved 06/22/1988 Problem 07/21/2020 [facility] Allergies, Adverse Reactions, Alerts Allergy Allergy Status Severity Reaction(s) Onset Inactive Treating Comm ents Source Name Type Date Date Clinician Hydromor Drug Active Mild 2019-[address] [facility] phone Allergy 01-01 received [facility] - 00:[facility]: dilaudid Medical 00 on the Center floor and in PACU. Pt says in the past it "makes him crazy" Iodine Drug Active 2019-[address] [facility] Allergy 01-01 [facility] - 00:[facility]: Medical 00 [place] Morphine Drug Active 2019-[address] [facility] Allergy 01-01 [facility] - 00:[facility]: Medical 00 [place] morphine morphine Active Memori a l [place] Dilaudid Dilaudid Active Memori a l [place] iodine iodine Active Memoria l [place] Family History Family Member Diagnosis Comments Start Date Stop Date Source Natural father Heart disease [facility] Natural mother Heart disease [facility] Social History Social Habit Start Date Stop Date Quantity Comments Source Sex Assigned At [facility] Alcohol intake 2020-11-02 2020-11-02 Ex-drinker [facility] es - 00:00:00 00:00:00 (finding) [facility] Social History 2020-07-19 2020-07-19 Bethany pang 15:00:00 15:00:00 Smoking Status Start Date Stop Date Source Social History 2019-07-04 22:41:06 [facility] Her bruno Medications Ordered Filled Start Stop Current Ordering Indication Dosage Frequency Signature Comments Components Source Medication Medication Date Date Medication? Clinician (SIG) Name Name ergocalcife 2019-11- No [id number] Q7D Take [address] rol 12-06 capsule [facility] - (ERGOCALCIF 00:00: 23:59 (50,000 Me dical YUSEF) 1,250 00 :00 Units Center mcg (50,000 total) by unit) mouth once capsule a week for 28 days. ergocalcife 2019-11 2020- No [id number] Q7D Take [address] rol - 12-27 capsule [facility] - (ERGOCALCIF 00:00: 00:00 (50,000 Me dical YUSEF) 1,250 00 :00 Units Center mcg (50,000 total) by unit) mouth once capsule a week for 28 days. metoprolol 2019-11 Yes hypertensio 12.5mg QD Take 12.[address] [facility] succinate 2-28 n mg by [facility] - (TOPROL-XL) 14:35: mouth Medic al 25 MG 24 hr 21 daily . Cente r tablet oxyCODONE 2019-11 Yes 80mg Take [address] (OxyCONTIN) 2-28 by mouth Luke s - 80 MG 12 hr 14:35: every 8 Med ical tablet 21 (eight) Center hours. gabapentin 2019-11 Yes neuropathic 600mg QD Take [address] [facility] (NEURONTIN) 2-28 pain mg by [facility] - 600 MG 14:35: mouth Medical tablet 21 daily . Center insulin 2019-11 Yes 20U QD Inject 20 [facility] lispro 2-28 Units [facility] - protamin-li 14:35: subcutaneo Medical spro 21 usly Center (HumaLOG daily. 75-25) 100 unit/mL (75-25) InPn injection simvastatin 2019-11 Yes hyperlipide 20mg QD Take [address] [facility] (ZOCOR) 20 2-28 jp by mouth [facility] - MG tablet 14:35: nightly. Medi brandon 21 Center traZODone 2019-11 Yes insomnia 100mg QD Take [address] [facility] (DESYREL) 2-28 associated mg by Margarita es - 100 MG 14:35: with mouth Medical tablet [address] TiZANidine 2019-11 Yes muscle 4mg Take [address] [facility] (ZANAFLEX) 2-28 spasm by mouth 3 Annalee kes - 4 MG 14:35: (three) Medical capsule 21 times Center daily as needed for Muscle spasms. pantoprazol 2019-11 Yes heartburn 40mg Take [address] [facility] e 2-28 by mouth 2 [facility] - (PROTONIX) 14:35: (two) Medica l 40 MG 21 times Center tablet daily as needed. butalbital- 2019-11 Yes migraine 1{tbl} Take [address] [facility] acetaminoph 2-28 tablet by Margarita es - en-caffeine 14:35: mouth Medic al (FIORICET, 21 every 6 Center ESGIC) (six) 50-325-40 hours as mg per needed for tablet Headaches. ALPRAZolam 2019-11 Yes anxiety 1mg Take [address] [facility] (XANAX) 1 2-28 by mouth 3 Luke s - MG tablet 14:35: (three) Medic al 21 times Center daily as needed for Anxiety. aspirin 81 2019-11- No 81mg QD Take [address] [facility] MG EC 2- 12-22 by mouth [facility] - tablet 14:35: 00:00 daily. Medical 21 :00 Center calcium 2019-11- Yes 500mg Q.5D Take [address] [facility] carbonate 2-06 11- tablet [facility] - (TUMS) 500 00:00: 23:59 (500 mg Med ical mg chewable 00 :00 total) by [facility] tablet mouth 2 (two) times daily. polyethylen 2019-11- Yes 17g QD Take [address] [facility] e glycol -06 11- by mouth [facility] - (GLYCOLAX) 00:00: 23:59 daily. Medi brandon 17 gram 00 :00 Center packet apixaban 2019-11- Yes 2.5mg Q.5D Take 1 [facility] (ELIQUIS) 01-07- tablet [facility] - 2.5 mg Tab 00:00: 23:59 (2.5 mg Med ical tablet 00 :00 total) by Center mouth 2 (two) times daily. polyethylen 2019-11- No 17g QD Take [address] [facility] e glycol -06 11- by mouth [facility] - (GLYCOLAX) 00:00: 00:00 daily. Medi brandon 17 gram 00 :00 Center packet calcium 2019-11- No 500mg Q.5D Take [address] [facility] carbonate -05 11- tablet [facility] - (TUMS) 500 00:00: 00:00 (500 mg Med ical mg chewable 00 :00 total) by [address] [facility] tablet mouth 2 (two) times daily. apixaban 2019-11- No 2.5mg Q.5D Take 1 [facility] (ELIQUIS) -26 11-06 tablet [facility] - 2.5 mg Tab 00:00: 00:00 (2.5 mg Med ical tablet 00 :00 total) by Martin mouth 2 (two) times daily. DULoxetine 2020-0 Yes 30 mg = 1 Me moria 30 mg oral 5-06 cap, PO, l delayed 15:03: Daily, # Telly n release 00 30 cap, 6 capsule Refill(s), Pharmacy: [facility] DULoxetine 2019-0 2020- No 1{capsu QD Take [address] (CYMBALTA) 03-16 le} capsule by kes - 30 MG 00:00: 00:00 mouth Medical capsule 00 :00 daily. Martin Acetaminoph 2019-0 Yes 1 cap, PO, Memoria en 300 MG / 2-06 Q4H, 0 l butalbital 22:03: Refill(s) He rmann 50 MG / 00 Caffeine 40 MG Oral Capsule omeprazole 2019-0 Yes 40 mg = 1 Me moria 40 mg oral 2-06 cap, PO, l delayed 22:03: Daily, 0 Telly n release 00 Refill(s) capsule terazosin 2 2019-0 Yes 2 mg = 1 Me moria mg oral 2-06 cap, PO, l capsule 22:03: Bedtime, 0 Herm jonas 00 Refill(s) Ondansetron 2019-0 Yes 8 mg = 1 Me moria 8 MG Oral 2-06 tab, PO, l Tablet 22:03: TID, 0 Jeremias 00 Refill(s) Metoclopram 2019-0 Yes 10 mg = 1 M emoria geoff 10 MG 2-06 tab, PO, l Oral Tablet 22:03: Daily, 0 He rmann 00 Refill(s) duloxetine 2019-0 Yes 20 mg = 1 Me moria 20 MG 2-06 cap, PO, l Enteric 18:34: Daily, # Telly n Coated 00 30 cap, 3 Capsule Refill(s), [Cymbalta] Pharmacy: [facility] citalopram 2019-0 No 0 Memoria 40 mg oral 2-06 Refill(s) l tablet 18:30: [place] 00 Zofran 2019-0 No Notes: Memoria 8-26 (Same as: l 02:49: Zofran) Jeremias 00 MEDICATION WASTE Product Size: [...] days from ____Date Dopamine No Notes: Memoria 07-05 (Same as: l 14:30: Intropin) Administer by either central venous catheter or peripheral ly-inserte d central catheter (PICC) line. Final conc = 3.2 mg/ml. Premix solution. Simvastatin No Notes: Gabe carolynn 07-05 (Same as: l 14:00: Zocor) Aspirin No Notes: Do Memor ia 07-05 not crush l 10:00: or chew. (Same As: Ecotrin) Lovenox No Notes: Memoria 07-05 (Same as: l 09:30: Lovenox) cefepime No Notes: Memoria 07-05 (Same As: l 03:00: Maxipime) MEDICATION WASTE [...] ea, PO, l powder 22:51: BID, 0 Refill(s) AMIODarone Yes 200 mg = 1 M emoria 200 mg oral 8-22 tab, PO, l tablet 19:30: Daily, # 30 tab, 0 Refill(s), Pharmacy: [facility] Aspirin 81 Yes 81 mg = 1 Me moria MG Enteric - tab, PO, l Coated 19:30: Daily, # Jeremias Tablet 00 30 tab, 0 Refill(s), Pharmacy: [facility] Docusate Yes 100 mg = 1 Mem oria Sodium 100 8- cap, PO, l MG Oral 19:30: BID, # 60 Pilar nn Capsule 00 cap, 0 Refill(s), Pharmacy: [facility] Famotidine Yes 20 mg = 1 Me moria 20 MG Oral 8- tab, PO, l Tablet 19:30: BID, # 60 Telly n 00 tab, 0 Refill(s), Pharmacy: [facility] metoprolol Yes 12.5 mg = Me moria 25 mg oral 07-02 0.5 tab, l tablet, 19:30: PO, Daily, Herm jonas extended 00 # 15 tab, release 0 Refill(s), Pharmacy: [facility] polyethylen Yes See Memori a e glycol 07-02 Instructio l 3350 oral 19:30: ns, PRN Pilar nn kit 00 Constipati on, PO BID, # 30 kit, 0 Refill(s), Pharmacy: [facility] sennosides, Yes 17.2 mg = M emoria ASSISTED 8.6 MG 07-02 2 tab, PO, l Oral Tablet 19:30: Bedtime, X Jeremias 00 14 day, # 28 tab, 0 Refill(s), Pharmacy: [facility] Amiodarone No Notes: Memor ia 07-02 (Same as: l 14:00: Cordarone) Jeremias 00 AMIODarone No 2 mg/ml. Me moria 900 mg in 06-30 Use Glass l D5W 500 ml 21:50: Bottle or He rmann IV 900 mg + 00 Non PVC Dextrose 5% Bag "Use in Water IV 0.22 482 mL micron in-line filter" MEDICATION WASTE Product Size: 900 mg Product Wasted: ___ mg Amiodarone No 2 mg/ml. Me moria 8-20 "Recommend l 21:50: ation: Use [place] 00 an in-line filter during administra tion for continuous infusions to reduce the incidence of phlebitis" (Same as Codarone) MEDICATION WASTE Product Size: 150 mg Product Wasted: ___ mg Furosemide No Notes: Memor ia 8-20 (Same as: l 20:38: Lasix) [place] 00 Miralax No Notes: Memoria 8-20 Dissolve l 15:04: in 8 oz of Jeremias 00 water or juice. (Same as: Miralax) glycerin No 1 supp, Memori a adult 06-30 Route: OR, l rectal 15:03: Drug Form: Pilar nn suppository 00 SUPP, Dosing Weight 83.182, kg, Daily, PRN Constipati on, Start date: 06/30/19 10:03:00 CDT, Duration: 30 day, Stop date: 07/30/19 10:02:00 CDT, 0 Fleet Enema No 12 years, Memoria 06-30 Pediatric l 15:03: Dosing, 0 citalopram No 20 mg = 1 Me moria 20 mg oral 20 tab, PO, l tablet 14:15: Daily, # [place] 00 30 tab, 0 Refill(s) metoprolol No Notes: Memor ia extended 06-30 (Same as: l release 14:00: Toprol XL) Do Not Crush Lasix No Notes: Memoria 06-29 (Same as: l 00:00: Lasix) MEDICATION WASTE Product Size: 40 mg Product Wasted: ___ mg Lasix No Notes: Memoria 06-28 (Same as: l 20:52: Lasix) [place] 00 MEDICATION WASTE Product Size: 40 mg Product Wasted: ___ mg Insulin No Notes: Memoria Lispro 06-28 (Same as: l 13:40: Humalog) Roll in palms of hands gently; Do not shake vigorously . WASTE: F/P - Black; E - Municipal Trash Bin Stable for 28 days at room temperatur e. Expires in days from ____Date Alprazolam No Notes: Memor ia -17 With food l 22:51: or milk [place] 00 (Same as: Xanax) potassium No Notes: Memori a phosphate-s -17 (Same as: l odium 16:00: Phos-NaK) Jeremias phosphate 00 Each 1.5 gm pkt has 250mg phosphorou s. Mix w/2.5oz water and stir. K-Dur 10 No Notes: Memoria 8-17 (Same as: l 15:10: K-Dur 10) Jeremias "Do Not Crush" With food and full glass of water LR IV 1,000 No 1,000 mL, M emoria mL 06-27 Rate: 100 l 14:52: ml/hr, Jeremias 00 Infuse over: 10 hr, Route: IV, Dosing Weight 83.182 kg, Total Volume: 1,000, Start date: 06/27/19 9:52:00 CDT, Duration: 30 day, Stop date: 07/27/19 9:51:00 CDT, 2, m2, 0 Reglan No Notes: Memoria 8-17 (Same as: l 14:51: Reglan) [place] 00 Potassium No Notes: Memori a Chloride 06-27 (Same as: l 14:51: KCL) Jeremias 00 Infuse no faster than 10 mEq/hr if given peripheral ly. sodium No Notes: Memoria phosphate -17 Infuse l 14:51: over 4 [place] 00 hour. Do not infuse phosphorou s concurrent ly in the same line as TPN or IVF that contains calcium. For double lumen central lines, phosphorou s may be infused in a separate lumen from TPN. potassium No Notes: Memori a phosphate -17 (Same as: l 14:51: K Jeremias 00 [...] Oxide 06-27 (Same as: l 14:51: Mag-Ox 400) Magnesium oxide 458zb=064g g elemental magnesium Dose=____m g magnesium oxide (___mg elemental magnesium) Calcium No Notes: Memoria Gluconate 06-27 WASTE: F/P l 14:51: - Sink; E - Municipal Trash Bin Calcium No Notes: Memoria Carbonate 06-27 (Same As: l 500 MG 14:51: Tums) Chewable 00 Calcium Tablet Carbonate 500 mg [...] 8-16 (Same as: l 12:57: Benadryl) albumin 2018-0 No 25 gm, Memoria human 25% 06-25 Route: l intravenous 23:39: IVPB, Pilar nn solution ONCE, Dosing Weight 83.182, kg, Start date: 06/25/19 18:39:00 CDT, Stop date: 06/25/19 18:39:00 CDT, Indication : Non-hemorr hagic shock ePHEDrine No Route: IV, Me moria (ANES) 06-25 Drug form: l 23:25: INJ, ONCE, Stop date: 06/25/19 18:25:00 CDT Norepinephr 0 No Notes: Gabe carolynn ine 06-25 Same [...] Stop date: Limited # of times Labetalol 0 No 10 mg, Memori a 06-25 Route: l 22:57: IVP, Jeremias 00 Q5Min, Dosing Weight 83.182, kg, PRN Elevated BP, Start date: 06/25/19 17:57:00 CDT, Duration: 5 doses or times, Stop date: Limited # of times Metoprolol 0 No 1 mg, Memori a 06-25 Route: l 22:57: IVP, Jeremias 00 Q5Min, Dosing Weight 83.182, kg, PRN Other -See Comment, Start date: 06/25/19 17:57:00 CDT, Duration: 5 doses or times, Stop date: Limited # of times Acetaminoph 0 No 1,000 mg, M emoria en 06-25 Route: l 22:57: IVPB, Drug form: INJ, ONCE, Dosing Weight 83.182, kg, PRN Pain Score 1-3, Start date: 06/25/19 17:57:00 CDT Oxycodone 2019-0 No 5 mg, Memoria Hydrochlori 8-15 Route: PO, l de 5 MG 22:57: [...] 2019-0 No 0.5 mg, Mem oria ne 8 Route: l 22:57: IVP, [place] 00 Q5Min, Dosing Weight 83.182, kg, PRN Pain Score 7-10, Start date: 06/25/19 17:57:00 CDT, Duration: 4 doses or times, Stop date: Limited # of times Flumazenil 2019-0 No 0.2 mg, Gabe carolynn 06-25 Route: l 22:57: IVP, PRN, Jeremias 00 Dosing Weight 83.182, kg, PRN Benzodiaze pine Reversal, Initial dose, Start date: 06/25/19 17:57:00 CDT, Duration: 30 day, Stop date: 07/25/19 17:56:00 CDT Naloxone 2019-0 No 0.4 mg, Memori a 06-25 Route: l 22:57: IVP, [place] 00 Q2MIN, Dosing Weight 83.182, kg, PRN Narcotic Reversal, Start date: 06/25/19 17:57:00 CDT, Duration: 8 doses or times, Stop date: Limited # of times Ondansetron 2019-0 No 4 mg, Memor ia 15 Route: l 22:57: IVP, ONCE, [place] Dosing Weight 83.182, kg, PRN Nausea & Vomiting, Start date: 06/25/19 17:57:00 CDT glycopyrrol 2019-0 No Route: IV, Memoria ate (ANES) 06-25 Drug form: l 22:18: INJ, ONCE, Stop date: 06/25/19 17:18:00 CDT neostigmine No Route: IV, Memoria (ANES) 8-15 Drug form: l 22:18: INJ, ONCE, Stop date: 06/25/19 17:18:00 CDT ondansetron No Route: IV, Memoria (ANES) 06-25 Drug form: l 22:18: INJ, ONCE, Stop date: 06/25/19 17:18:00 CDT Lovenox No Notes: Memoria 8-15 (Same as: l 22:00: Lovenox) normal No 1,000 mL, Memori a saline 0.9% 06-25 Rate: 100 l IV 1,000 mL 21:47: ml/hr, Infuse over: 10 hr, Route: IV, Dosing Weight 83.182 kg, Total Volume: 1,000, Start date: 06/25/19 16:47:00 CDT, Duration: 30 day, Stop date: 07/25/19 16:46:00 CDT, 2, m2, 0 protamine No Route: IV, Me moria (ANES) 06-25 Drug form: l 21:22: INJ, ONCE, Stop date: 06/25/19 16:22:00 CDT acetaminoph No Route: IV, Memoria en (ANES) 06-25 Drug form: l 20:04: INJ, ONCE, Stop date: 06/25/19 15:04:00 CDT heparin No Route: IV, Gabe carolynn (ANES) 06-25 Drug form: l 19:23: INJ, ONCE, Stop date: 06/25/19 14:23:00 CDT albumin No Route: IV, Gabe carolynn human - Drug form: l (ANES) 25 18:36: INJ, Start He date: 06/25/19 13:36:00 CDT, Stop date: 06/25/19 14:36:00 CDT lidocaine 2019-0 No Route: IV, moria (ANES) 8-15 Drug form: l 18:17: INJ, ONCE, Stop date: 06/25/19 13:17:00 CDT fentaNYL 2019-0 No Route: IV, Mem oria (ANES) 8-15 Drug form: l 18:17: INJ, ONCE, Stop date: 06/25/19 13:17:00 CDT propofol 2019-0 No Route: IV, Mem oria (ANES) 8-15 Drug form: l 18:17: INJ, ONCE, Stop date: 06/25/19 13:17:00 CDT rocuronium 2019-0 No Route: IV, Andriy emoria (ANES) 8-15 Drug form: l 18:17: INJ, ONCE, Stop date: 06/25/19 13:17:00 CDT ceFAZolin 2019-0 No Route: IV, moria (ANES) 8-15 Drug form: l 18:17: INJ, ONCE, Stop date: 06/25/19 13:17:00 CDT Sodium 2018-0 No Route: IV, Memor ia Chloride 8-15 Total l 0.9% IV 17:25: Volume: Jeremias (ANES) 1000 00 1,000, mL Start date: 06/25/19 12:25:00 CDT, Stop date: 06/25/19 13:25:00 CDT Calcium 2019-0 No 1,000 mL, Memor ia Chloride 815 Rate: 25 l 0.0014 17:06: ml/hr, Jeremias MEQ/ML / 00 Infuse Potassium over: 40 Chloride hr, Route: 0.004 IV, Dosing MEQ/ML / Weight Sodium 83.182 kg, Chloride Total 0.103 Volume: MEQ/ML / 1,000, Sodium Start Lactate date: 0.028 06/25/19 MEQ/ML 12:06:00 Injectable CDT, Solution Duration: 30 day, Stop date: 07/25/19 12:05:00 CDT, 2, m2 vancomycin 2019-0 No Route: IV, Andriy emoria (ANES) 1000 8-15 Drug form: l mg 17:01: INJ, Start [...] Memoria 8-14 (Same as: l 14:00: Lovenox) Docusate No Notes: Memoria 8-14 (Same as: [...] carolynn 8-14 (Same as: l 14:00: Zocor) Alprazolam No Notes: Memor ia 8-14 With food l 14:00: or milk (Same as: Xanax) Lisinopril No Notes: Memor ia 8-14 (Same as: l 14:00: Prinivil, Jeremias 00 Zestril) Zofran No Notes: Memoria 8-14 (Same as: l 02:46: Zofran) MEDICATION WASTE Product Size: 4 mg Product Wasted: ___ mg sennosides, No Notes: Gabe carolynn ASSISTED 814 (Same as: l 02:00: Senokot) Jeremias 200 ACTUAT No Notes: SEE M emoria Albuterol 8-14 RT l 0.09 01:00: DOCUMENTAT Jeremias MG/ACTUAT 00 ION (Same Metered as: Dose Proventil) Inhaler [ProAir HFA] oxyCODONE No Notes: Do Mem oria 10 mg 14 not crush l extended 00:54: or chew. Pilar nn release 00 (Same as: OxyContin) gabapentin Yes 600 mg = 1 M emoria 600 MG Oral 14 tab, PO, l Tablet 00:41: TID, # [...] Stop date: 07/23/19 17:51:00 CDT, 0 Insulin No Notes: Memoria Lispro 06-23 (Same as: l 22:52: Humalog) Roll in palms of hands gently; Do not shake vigorously . WASTE: F/P - Black; E - Municipal Trash Bin Stable for 28 days at room temperatur e. Expires in days from ____Date Oxycodone No Notes: Memori a Hydrochlori 8-13 (Same as: l de 5 MG 22:49: Roxicodone Herm jonas Oral Tablet ) Dextrose 2019-0 No 12.5 gm, Memor ia 50% Syringe 06-23 25 mL, l 22:47: Route: Jeremias 00 IVP, Drug Form: INJ, Dosing Weight 83.182, kg, PRN, PRN Blood Glucose Results, Start date: 06/23/19 17:47:00 CDT, Duration: 30 day, Stop date: 07/23/19 17:46:00 CDT, 0 Glucagon 2019-0 No 1 mg, Memoria 06-23 Route: IM, l 22:47: Drug form: [place] 00 PDR/INJ, PRN, Dosing Weight 83.182, kg, [...] day, Stop date: 07/22/19 16:00:00 CDT Hydralazine 2018-0 No 10 mg, Gabe carolynn 06-23 Route: l 20:27: IVP, Jeremias 00 Q20Min, Dosing Weight 83.182, kg, PRN Elevated BP, Start date: 06/23/19 15:27:00 CDT, Duration: 2 doses or times, Stop date: Limited # of times Labetalol 2019-0 No 10 mg, Memori a 06-23 Route: l 20:27: IVP, [place] 00 Q5Min, Dosing Weight 83.182, kg, PRN Elevated BP, Start date: 06/23/19 15:27:00 CDT, Duration: 5 doses or times, Stop date: Limited # of times Metoprolol 2018-0 No 1 mg, Memori a 06-23 Route: l 20:27: IVP, [place] 00 Q5Min, Dosing Weight 83.182, kg, PRN Other -See Comment, Start date: 06/23/19 15:27:00 CDT, Duration: 5 doses or times, Stop date: Limited # of times Acetaminoph 2019-0 No 1,000 mg, M andrea en 06-23 Route: l 20:27: IVPB, Drug [...] 15:26:00 CDT Fentanyl 2019-0 No 25 Memoria - microgram, l 20:27: Route: Jeremias 00 IVP, Q5Min, Dosing Weight 83.182, kg, PRN Pain Score 4-6, Priority: Routine, Start date: 06/23/19 15:27:00 CDT, Duration: 4 doses or times, Stop date: Limited # of times Hydromorpho 2019-0 No 0.5 mg, Mem oria ne 06-23 Route: l 20:27: IVP, [place] 00 Q5Min, Dosing Weight 83.182, kg, PRN Pain Score 7-10, Start date: 06/23/19 15:27:00 CDT, Duration: 4 doses or times, Stop date: Limited # of times Flumazenil 2019-0 No 0.2 mg, Gabe carolynn 06-23 Route: l 20:27: IVP, PRN, Jeremias 00 Dosing Weight 83.182, [...] Vomiting, Start date: 06/23/19 15:27:00 CDT normal 2019-0 No 1,000 mL, Memori a saline 0.9% 06-23 Rate: 100 l IV 1,000 mL 20:22: ml/hr, Infuse over: 10 hr, Route: IV, Dosing Weight 83.182 kg, Total Volume: 1,000, Start date: 06/23/19 15:22:00 CDT, Duration: 30 day, Stop date: 07/23/19 15:21:00 CDT, 2, m2, 0 fentaNYL 2019- No Route: IV, Mem oria (ANES) 06-23 Drug form: l 20:16: INJ, ONCE, Stop date: 06/23/19 15:16:00 CDT lidocaine 2019-0 No Route: IV, Me moria (ANES) 06-23 Drug form: l 20:13: INJ, ONCE, Stop date: 06/23/19 15:13:00 CDT propofol 2019-0 No Route: IV, Mem oria (ANES) 06-23 Drug form: l 20:13: INJ, ONCE, Stop date: 06/23/19 15:13:00 CDT vancomycin 2019-0 No Route: IV, M emoria (ANES) 1000 06-23 Drug form: l mg 19:35: INJ, Start date: 06/23/19 14:35:00 CDT, Stop date: 06/23/19 15:35:00 CDT ceFAZolin 2018-0 No Route: IV, Me moria (ANES) 1000 06-23 Drug form: l mg 19:30: INJ, Start date: 06/23/19 14:30:00 CDT, Stop date: 06/23/19 15:30:00 CDT Sodium No Route: IV, Memor ia Chloride 06-23 Total l 0.9% IV 19:26: Volume: Jeremias (ANES) 1000 00 1,000, mL Start date: 06/23/19 14:26:00 CDT, Stop date: 06/23/19 15:26:00 CDT Ancef + 2019- No Notes: Memoria sterile 06-23 (Same As: l water 20 mL 16:00: Ancef, Herm jonas 00 Kefzol) MEDICATION WASTE Product Size: 1000 mg Product Wasted: ___ mg Vancomycin No 2000 mg: Me moria 06-23 infuse l 16:00: over 2.5 Jeremias hours For adult patients only: Round to nearest 250 mg per Medical Staff approval MEDICATION WASTE Product Size: 1000 mg Product Wasted: ___ mg Acetylcyste No Notes: Gabe carolynn ine 200 06-23 SEND TO l MG/ML 16:00: PRE-OP [place] Inhalant 00 SEND TO Solution PRE-OP SEND TO PRE-OP NS 1,000 mL No 1,000 mL, M emoria 06-23 Rate: 150 l 15:01: ml/hr, Jeremias 00 Infuse over: 6.7 hr, Route: IV, Dosing Weight 84.545 kg, Total Volume: 1,000, Start date: 06/23/19 10:01:00 CDT, Duration: 30 day, Stop date: 07/23/19 10:00:00 CDT, 2.06, m2, 0 oxcarbazepi 2017-11 Yes 150 mg = 1 Memoria ne 150 MG 1-29 tab, PO, l Oral Tablet 20:04: Bedtime, # Jeremias [Trileptal] 00 30 tab, 3 Refill(s), Pharmacy: [facility] gabapentin 2017-11 Yes 600 mg = 1 M emoria 600 MG Oral - tab, PO, l Tablet 17:59: Daily, 0 [place] 00 Refill(s) Citalopram 2017-11 Yes 40 mg, PO, M emoria 1- Daily, 0 l 17:59: Refill(s) Jeremias 00 200 ACTUAT 2017-11 Yes 2 puff, Gabe carolynn Albuterol 11-11 INHALATION l 0.09 17:59: , Q6H, 0 Jeremias MG/ACTUAT 00 Refill(s) Metered Dose Inhaler [ProAir HFA] Lactulose 2017-11 Yes 10 gm = 15 Me moria 667 MG/ML 11-11 mL, PO, l Oral 17:59: BID, 0 [place] Solution 00 Refill(s) Omeprazole 2017-11 Yes 40 mg, PO, M emoria 11-11 Daily, 0 l 17:59: Refill(s) Jeremias 00 Diclofenac 2017-11 Yes PO, 0 Memori [...] 11-11 TID, PRN l 17:59: anxity, 0 [place] 00 Refill(s) Aspirin 2017-11 Yes 81 mg, PO, Gabe carolynn 11-11 Daily, 0 l 17:59: Refill(s) 00 POLYETHYLEN 2017-11 Yes 17 gm, PO, Memoria E GLYCOL 11-11 Daily, # l 3350 142 17:59: 255 gm, 0 Herm jonas MG/ML Oral 00 Refill(s) Solution [Miralax] Trazodone 2017-11 Yes 50 mg, PO, Me moria 11-11 Bedtime, 0 l 17:59: Refill(s) Jeremias oxyCODONE 2017-11 Yes 80 mg = 1 Mem oria 80 mg oral 11-11 tab, PO, l tablet, 17:59: TID, PRN Telly n extended 00 pain, 0 release Refill(s) ProAir HFA 2017-11 Yes 1 - 2 Memori a 11-11 puffs, l 17:59: INHALATION [place] 00 , Q6H, PRN Wheezing / cough / shortness of breath, # 1 ea, 0 Refill(s) Diclofenac 2017-11 Yes See Memoria Sodium 0.01 11-11 Instructio l MG/MG 17:59: ns, 2 [place] Topical Gel 00 mg-4mgTOP QID affected area, 0 Refill(s) Lisinopril 2017-11 Yes 10 mg, PO, M emoria 11-11 Daily, 0 l 17:59: Refill(s) [place] 00 Simvastatin 2017-11 Yes 20 mg, PO, Memoria 11-11 Daily, 0 l 17:59: Refill(s) [place] 00 3 ML 2017-11 Yes 600 mg, 0 Memoria Insulin 11-11 Refill(s) l Lispro 100 17:59: Jeremias UNT/ML Pen 00 Injector [Humalog] Ondansetron 2017-11 Yes 8 mg, PO, M emoria 11-11 Q8H, PRN l 17:59: nausea, 0 [place] 00 Refill(s) Reglan 2017-11 No 10 mg, PO, Memor ia 11-11 BID, 0 l 17:59: Refill(s) Jeremias 00 Vital Signs Vital Name Observation Time Observation Value Comments Source Systolic blood 2020-11-05 11:20:00 160 mm[Hg] [facility] Diastolic blood 2020-11-05 11:20:00 71 mm[Hg] [facility] Heart rate 2020-11-05 11:20:00 90 /min [facility] Body temperature 2020-11-05 11:20:00 36.33 Alivia [facility] Respiratory rate 2020-11-05 11:20:00 18 /min [facility] Oxygen saturation in 2020-11-05 11:20:00 92 /min [facility] - Arterial blood by Medical Ce nter Pulse oximetry Body height 2020-11-01 19:07:00 172.7 cm [facility] Body weight 2020-11-01 19:07:00 78.472 kg [facility] BMI 2020-11-01 19:07:00 26.30 kg/m2 [facility] Systolic (mm Hg) 2020-03-16 14:30:00 Gabe rial Jeremias Diastolic (mm Hg) 2020-03-16 14:30:00 Mem orial Jeremias Heart Rate 2020-03-16 14:30:00 [facility] Respitory Rate 2020-03-16 14:30:00 Memori al Jeremias Temperature Oral (F) 2020-03-16 14:30:00 98.2 F [facility] [place] Height 2020-03-16 14:30:00 177.8 cm [facility] [place] Weight 2020-03-16 14:30:00 [facility] Jeremias BMI Calculated 2020-03-16 14:30:00 Memori al Jeremias Systolic (mm Hg) 2019-12-17 17:47:00 Gabe rial [place] Diastolic (mm Hg) 2019-12-17 17:47:00 Mem orial Jeremias Heart Rate 2019-12-17 17:47:00 [facility] Jeremias Respitory Rate 2019-12-17 17:47:00 Memori al [place] Height 2019-12-17 17:47:00 170.18 cm [facility] [place] Weight 2019-12-17 17:47:00 [facility] Jeremias BMI Calculated 2019-12-17 17:47:00 Memori al [place] Systolic (mm Hg) 2019-11-13 14:55:00 Gabe rial Jeremias Diastolic (mm Hg) 2019-11-13 14:55:00 Mem orial [place] Heart Rate 2019-11-13 14:55:00 [facility] [place] Respitory Rate 2019-11-13 14:55:00 Memori al Jeremias Height 2019-11-13 14:55:00 170.18 cm [facility] Jeremias Weight 2019-11-13 14:55:00 [facility] [place] BMI Calculated 2019-11-13 14:55:00 Memori al Jeremias Respitory Rate 2019-07-06 20:00:00 Memori al Jeremias Systolic (mm Hg) 2019-07-06 20:00:00 Gabe rial Jeremias Diastolic (mm Hg) 2019-07-06 20:00:00 Mem orial [place] Respitory Rate 2019-07-06 19:00:00 Memori al Jeremias Systolic (mm Hg) 2019-07-06 19:00:00 Gabe rial Jeremias Diastolic (mm Hg) 2019-07-06 19:00:00 Mem orial Jeremias Respitory Rate 2019-07-06 18:00:00 Memori al Jeremias Systolic (mm Hg) 2019-07-06 18:00:00 Gabe rial [place] Diastolic (mm Hg) 2019-07-06 18:00:00 Mem orial Jeremias Temperature Oral (F) 2019-07-06 17:00:00 98.4 F [facility] Jeremias Temperature Oral (F) 2019-07-06 13:00:00 98.6 F [facility] Temperature Oral (F) 2019-07-06 09:00:00 98.1 F [facility] [place] Height 2019-07-04 22:35:00 175.26 cm [facility] Weight 2019-07-04 22:35:00 [facility] [place] BMI Calculated 2019-07-04 22:35:00 Memori al [place] Respitory Rate 2019-07-02 20:00:00 Memori al [place] Systolic (mm Hg) 2019-07-02 20:00:00 Gabe rial [place] Diastolic (mm Hg) 2019-07-02 20:00:00 Mem orial [place] Respitory Rate 2019-07-02 19:00:00 Memori al Jeremias Systolic (mm Hg) 2019-07-02 19:00:00 Gabe rial [place] Diastolic (mm Hg) 2019-07-02 19:00:00 Mem orial [place] Respitory Rate 2019-07-02 17:00:00 Memori al [place] Systolic (mm Hg) 2019-07-02 17:00:00 Gabe rial Jeremias Diastolic (mm Hg) 2019-07-02 17:00:00 Mem orial [place] Temperature Oral (F) 2019-07-02 17:00:00 98.6 F [facility] Jeremias Temperature Oral (F) 2019-07-02 13:00:00 98.7 F [facility] Jeremias Height 2019-07-02 10:02:00 170.18 cm [facility] Jeremias Temperature Oral (F) 2019-07-02 09:00:00 99.2 F [facility] [place] Height 2019-07-01 18:14:00 170.18 cm [facility]ias Height 2019-07-01 09:16:00 170.18 cm [facility] [place] Heart Rate 2019-06-25 16:38:00 [facility] [place] Heart Rate 2019-06-25 12:53:00 [facility] [place] Heart Rate 2019-06-25 07:51:00 [facility] Jeremias Weight 2019-06-23 15:01:00 [facility] [place] BMI Calculated 2019-06-23 15:01:00 Memori al Jeremias BMI Calculated 2018-10-23 15:03:00 Memori al Jeremias Height 2018-10-23 15:03:00 177.8 cm [facility] [place] Weight 2018-10-23 15:03:00 [facility] [place] Systolic (mm Hg) 2018-10-23 15:03:00 Gabe rial Jeremias Diastolic (mm Hg) 2018-10-23 15:03:00 Mem orial [place] Heart Rate 2018-10-23 15:03:00 [facility] [place] BMI Calculated 2018-10-09 19:30:00 Memori al [place] Weight 2018-10-09 19:30:00 [facility] [place] Height 2018-10-09 19:30:00 177.8 cm [facility] Jeremias Respitory Rate 2018-10-09 19:30:00 Memori al [place] Heart Rate 2018-10-09 19:30:00 [facility] [place] Systolic (mm Hg) 2018-10-09 19:30:00 Gabe rial Jeremias Diastolic (mm Hg) 2018-10-09 19:30:00 Mem orial Jeremias BMI Calculated 2018-09-11 16:37:00 Memori al [place] Weight 2018-09-11 16:37:00 [facility] [place] Heart Rate 2018-09-11 16:37:00 [facility] [place] Height 2018-09-11 16:37:00 177.8 cm [facility] Jeremias Systolic (mm Hg) 2018-09-11 16:37:00 Gabe rial [place] Diastolic (mm Hg) 2018-09-11 16:37:00 Mem orial Jeremias Procedures Procedure Date / Time Performed Performing Clinician Soursiva e POCT-GLUCOSE METER 2020-11-05 11:31:00 Lam Moreno [facility] CBC W/PLT COUNT & AUTO 2020-11-05 11:06:00 [facility] POCT-GLUCOSE METER 2020-11-05 08:26:00 Lam Moreno [facility] POCT-GLUCOSE METER 2020-11-04 [facility]:03[facility] 2020-11-04 15:51:00 Josh [facility] POCT-GLUCOSE METER 2020-11-04 11:16:00 Josh [facility] POCT-GLUCOSE METER 2020-11-04 04:52:00 Josh [facility] POCT-GLUCOSE METER 2020-11-03 21:00:00 Josh [facility] POCT-GLUCOSE METER 2020-11-03 15:59:00 Josh [facility] POCT-GLUCOSE METER 2020-11-03 11:29:00 Josh [facility] POCT-GLUCOSE METER 2020-11-03 07:35:00 Josh [facility] CBC (HEMOGRAM ONLY) 2020-11-03 06:14:00 Joaquin Chapman [facility] BASIC METABOLIC PANEL 2020-11-03 06:14:00 Joaquin Chapman [address] POCT-GLUCOSE METER 2020-11-02 21:00:00 Josh [facility] POCT-GLUCOSE METER 2020-11-02 16:08:00 Josh [facility] POCT-GLUCOSE METER 2020-11-02 12:22:00 Josh [facility] POCT-GLUCOSE METER 2020-11-02 10:48:00 Josh [facility] FL FLUORO NON-SPECIFIC 2020-11-02 08:51:00 Joaquin Chapman [facility] - UP TO 1 HOUR [facility] RYAN ROLLINS 2020-11-02 07:31:00 Joaquin Chapman [facility] PROCEDURE W/ C-ARM 2020-11-02 07:31:00 Joaquin Chapman [facility] POCT-GLUCOSE METER 2020-11-02 06:33:00 Davis, Elenita Koch [facility] CBC (HEMOGRAM ONLY) 2020-11-02 03:32[facility]00 [facility] 2020-11-02 03:32:00 Joaquin Chapman [facility] (7) [facility] TSH/FREE T4 IF INDICATED 2020-11-02 03:32:00 [facility] VITAMIN B12 AND FOLATE 2020-11-02 03:32:00 [facility] POCT-GLUCOSE METER 2020-11-01 21:44:00 Davis, Elenita Koch [facility] ABORH, MANUAL 2020-11-01 16:43:00 Neema Stark [facility] TYPE AND SCREEN, 2020-11-01 16:19:00 BricessJameel sam [facility] POCT-GLUCOSE METER 2020-11-01 13:03:00 Davis, Elenita Koch [facility] NM MYOCARDIAL PERFUSION 2020-11-01 11:50:00 SenAlma Rosa [facility] - PET/CT (REST & STRESS) Medical C enter ECG 12-LEAD 2020-11-01 11:34:14 Unknown, Hl7 Doctor [facility] TREADMILL 2020-11-01 11:34:12 Unknown, Hl7 Doctor [facility] - TOLERANCE(NON-NUCLEAR Medical Ce nter TREADMILL) 2D ECHO W/ DOPPLER 2020-11-01 09:32:00 Davis, Elenita [facility] (CW/PW/COLOR) [facility] POCT-GLUCOSE METER 2020-11-01 07:29:00 Davis, Elenita Koch [facility] HEMOGLOBIN A1C 2020-11-01 06:11:00 Davis, Elenita Koch [facility] VITAMIN D, 25-HYDROXY 2020-11-01 06:11:00 Davis, Elenita Koch [facility] CBC (HEMOGRAM ONLY) 2020-11-01 06:11:00 Joaquin Chapman [facility] BASIC METABOLIC PANEL 2020-11-01 06:11:00 Joaquin Chapman [facility] (7) [facility] SARS-COV2/RT-PCR ([facility] & 2020-10-31 21:55:00 Davis, Elenita Steinberg [facility] - REF LABS) [facility] CBC W/PLT COUNT & AUTO 2020-10-31 21:50:00 Davis, Elenita Koch [facility] DIFFERENTIAL [facility] BASIC METABOLIC PANEL 2020-10-31 21:50:00 Davis, Elenita Koch [facility] (7) [facility] TROPONIN I 2020-10-31 21:50:00 Davis, Elenita Koch [facility] PROTHROMBIN TIME/INR 2020-10-31 21:50:00 Davis, Elenita Koch [facility] XR FEMUR 2 VIEWS LEFT 2020-10-31 19:19:00 Jason Cevallos [facility] XR FOOT LEFT 3 VIEW 2020-10-31 19:19:00 Mart Jason [facility] XR ANKLE 3 VIEWS LEFT 2020-10-31 19:19:00 Mart Jason [facility] XR LEG/TIBIA & FIBULA 2020-10-31 19:19:00 Mart [facility] - LEFT 2 VIEWS [facility] ECG 12-LEAD 2020-10-31 17:07:56 Davis, Elenita Koch [facility] Kyphoplasty of fracture 2013-06-22 05:00:00 Gabe Mcdowell of lumbar spine using computed tomography (CT) guidance Bypass / graft of vein 2008-06-22 05:00:00 Randi Mcdowell Arthroplasty of 1995-06-22 05:00:00 [facility] bruno knee<sup>1</sup> Discectomy 1986-06-22 05:00:00 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 Arthroscopy of knee 1964-06-22 05:00:00 [facility] joint<sup>2</sup> Appendectomy [facility] Plan of Care Planned Activity Planned Date Details Comments Source Future Scheduled 2021-05-[address] [facility] - Test 00:00:00 measurement Medical Center (procedure) [code = 79821634] Future Scheduled 2020-11-[address] [facility] - Test 00:00:00 (12+) [code = Medical Center DEPRESSION SCREENING (12+)] Future Scheduled 2020-07-12 INFLUENZA VACCINE (#1) [facility] Test 00:00:00 [code = INFLUENZA Medical Ce nter VACCINE (#1)] Future Scheduled 2006 PNEUMOCOCCAL 65+ YRS [facility] - Test 00:00:00 (1 of 1 - Medical Center [id number]) [code = PNEUMOCOCCAL 65+ YRS (1 of 1 - [id number] PCV13)] Future Scheduled 1999-06-[address] [facility] - Test 00:00:00 WELLNESS (YEAR 2 or Medical Center FIRST YEAR if no IPPE) [code = MEDICARE ANNUAL WELLNESS (YEAR 2 or FIRST YEAR if no IPPE)] Future Scheduled 1991 SHINGLES VACCINES ([address] [facility] - Test 00:00:00 of 2) [code = SHINGLES Medic al Center VACCINES (1 of 2)] Future Scheduled 1960-01-14 DTAP/TDAP/TD VACCINES [facility] - Test 00:00:00 (1 - Tdap) [code = Medical C enter DTAP/TDAP/TD VACCINES (1 - Tdap)] Future Scheduled 1951 DIABETIC EYE EXAM [facility] - Test 00:00:00 [code = DIABETIC EYE Medical Center EXAM] Future Scheduled [address] [facility] - Test 00:00:00 examination Medical Center (regime/therapy) [code = 907222465] Future Scheduled 1951 Urine screening for [facility] - Test 00:00:00 protein (procedure) Medical Center [code = 301636205] Encounters Start End Encounter Admission Attending Care Care Encounter Source Date/Time Date/Time Type Type Clinicians Facility Department ID 2019-07-04 Inpatient U [facility] PUL [id number] [facility]-10 2021-01-10 Patient Taran INARIELA [id number] 00:00:00 00:00:[address] [facility] [id number] [place] [id number] [facility] [id number] nal [address] [facility] 2020-07-19 2020-07-19 Outpatient Nathen, MHMISCHER MHMISCHER [id number] 10:00:00 10:00:00 Fede 00 Chuckie 2020-07-19 2020-07-19 Outpatient Nathen, MHMISCHER MHMISCHER [id number] 10:00:00 10:00:00 Fede 10 Chuckie 2020-03-16 2020-03-16 Outpatient Nathen, MHMISCHER MHMISCHER [id number] 09:15:00 23:59:59 Fede 09 Chuckie 2019-12-17 2019-12-17 Outpatient Nathen, MHMISCHER MHMISCHER [id number] 11:45:00 23:59:59 Fede 08 Chuckie 2019-11-13 2019-11-13 Outpatient Nathen, MHMISCHER MHMISCHER [id number] 08:45:00 23:59:59 Fede 07 Chuckie 2019-07-04 2019-07-06 Outpatient Isak, MHSE MHSE [id number] 17:33:00 16:35:00 Timoteo 36 Simeon 2019-06-24 2019-07-02 Outpatient Marisa, MHSE MHSE [id number] 13:43:00 15:37:00 Delores Kamila Abel 2019-06-24 2019-06-23 Inpatient U MHSE MED [id number] MH 13:43:00 15:31:00 [facility] 2019-02-26 2019-02-26 Outpatient Nathen, MHMISCHER MHMISCHER [id number] 09:45:00 09:45:00 Fede 05 Chuckie 2018-11-20 2018-11-20 Outpatient Nathen, MHMISCHER MHMISCHER [id number] 13:15:00 13:15:00 Fede 03 Chuckie 2018-10-30 2018-10-31 Outpatient MHMISCHER MHMISCHER [id number] 14:29:00 23:59:59 02 2018-10-23 2018-10-23 Outpatient JOCELYN SenaSCHER MELODYSCHER [id number] 09:30:00 23:59:59 Fede 04 Chuckie 2018-10-09 2018-10-09 Outpatient JOCELYN SenaSCHER MELODYSCHER [id number] 13:30:00 23:59:59 Fede Chuckie 2018-09-26 2018-09-27 Outpatient MHMISCHER MISCHER [id number] 12:14:00 23:59:59 2018-09-25 2018-09-26 Outpatient MHMISCHER MHMISCHER [id number] 11:25:00 23:59:59 00 2018-09-16 2018-09-16 Outpatient JOCELYN SenaSCHER MELODYSCHER [id number] 15:00:00 23:59:59 Fede Chuckie 2018-09-11 2018-09-11 Outpatient JOCELYN SenaSCHER MELODYSCHER [id number] 11:30:00 23:59:59 Fede 00 Chuckie Results Test Description Test Time Test Comments Results Result Sourc e Comments Treadmill Interface, External Ris C HI St tolerance(Non-Nu 6 In - 11/16/2020 10:49 [facility] clear Treadmill) 10:49:29 CSTProtocol Name [facility] Time In Cente r Exercise Phase 00:01:00 Max. Systolic BP 117 mmHgMax Diastolic BP 71 mmHgMax Heart Rate 81 BPMMax Predicted Heart Rate 141 BPMReason For Termination Predetermined end point Reason for Test Preoperative Clearance Target HR Formula (220 - Age)*100% Arrhythmias Bigeminy, atrial premature beatsventricular premature beatsResting ECG Normal sinus rhythm right bundle branch blockST Changes <2mm ST DEPRESSIONOverall Impression Indeterminate due to pharmacological stress Nuclear data reported separatelyChest Pain none HR Response To Exercise BP Response To Exercise Atorvastatin, MetoprololConfirmed by Elmer Ibarra ([id number]) on 11/01/2020 1:41:00 PMConfirmed by Abdirizak VAUGHN BASANT ([id number]) on 11/16/2020 10:49:22 AM POC-Glucose meter 2020-11-05 11:43:00 Test Item Value Reference Range Interpretation Comme nts POC-Glucose Meter (test code = 187 mg/dL 70-110 H : TESTED AT [facility] [address] [facility] [address]) [facility], 770 30: Coat Operator/Techni vance ID = [id number] for ELVIN SANTIAGO Lab Interpretation (test code = Abnormal 66190-3) [facility] [id number] 11:43:00 Test Item Value Reference Range Interpretation Comments POC-GLUCOSE METER 187 mg/dL 70-110 H : TESTED A T [facility] [address] (BEAKER) (test code = BERTNE R [facility], 1538) [address]: Coat Operator/Techni vance ID = [id number] for ELVIN ESQUVIEL CBC with platelet count + automated [id number] 11:30:00 Test Item Value Reference Range Interpretation Comments WBC (test code = 6690-2) 6.9 See_Comment [A utomated message] The system [employer] generated this result transmitted ref erence range: 3.5 - 10 .5 K/L. The refe rence range was not u sed to interpret this result as normal/abnor mal. RBC (test code = 789-8) 2.54 See_Comment L [Au tomated message] The system [employer] generated this result transmitted ref erence range: 4.63 - 6 .08 M/L. The refe rence range was not u sed to interpret this result as normal/abnor mal. MCHC (test code = 786-4) 31.9 See_Comment L [A utomated message] The system [employer] generated this result transmitted ref erence range: 32.3 - 3 6.5 GM/DL. The refe rence range was not u sed to interpret this result as normal/abnor mal. Hematocrit (test code = 25.4 % 40.1-51 L 4544-3) MCV (test code = 787-2) 100.0 fL 79-92.2 H MCH (test code = 785-6) 31.9 pg 25.7-32.2 RDW (test code = 788-0) 13.3 % 11.6-14.4 Platelets (test code = 154 See_Comment [Aut omated message] 777-3) The system [employer] generated this result transmitted ref erence range: 150 - 45 0 K/CU MM. The referen ce range was not u sed to interpret this result as normal/abnor mal. MPV (test code = 11.3 fL 9.4-12.4 65169-1) nRBC (test code = 413) 0 See_Comment [Aut omated message] The system [employer] generated this result transmitted ref erence range: 0 - 0 /1 00 WBC. The refere nce range was not u sed to interpret this result as normal/abnor mal. % Neutros (test code = 57 % 429) % Lymphs (test code = 22 % 430) % Monos (test code = 16 % 431) % Eos (test code = 432) 3 % % Baso (test code = 437) 1 % # Neutros (test code = 3.95 See_Comment [Aut omated message] 670) The system [employer] generated this result transmitted ref erence range: 1.78 - 5 .38 K/L. The refe rence range was not u sed to interpret this result as normal/abnor mal. # Lymphs (test code = 1.49 See_Comment [Auto mated message] 414) The system [employer] generated this result transmitted ref erence range: 1.32 - 3 .57 K/L. The refe rence range was not u sed to interpret this result as normal/abnor mal. # Monos (test code = 1.12 See_Comment H [Autom ated message] 415) The system [employer] generated this result transmitted ref erence range: 0.30 - 0 .82 K/L. The refe rence range was not u sed to interpret this result as normal/abnor mal. # Eos (test code = 416) 0.23 See_Comment [Au tomated message] The system [employer] generated this result transmitted ref erence range: 0.04 - 0 .54 K/L. The refe rence range was not u sed to interpret this result as normal/abnor mal. # Baso (test code = 417) 0.05 See_Comment [A utomated message] The system PlanG generated this result transmitted ref erence range: 0.01 - 0 .08 K/L. The refe rence range was not u sed to interpret this result as normal/abnor mal. Immature 1 % 0-1 Granulocytes-Relative (test code = 2801) Lab Interpretation (test Abnormal code = 89742-8) [facility] W/PLT COUNT & AUTO [id number] 11:30:00 Test Item Value Reference Range Interpretation Comments WHITE BLOOD CELL COUNT (BEAKER) 6.9 K/ L 3.5-10.5 (test code = 775) RED BLOOD CELL COUNT (BEAKER) 2.54 M/ L 4.63-6.08 L (test code = 761) HEMOGLOBIN (BEAKER) (test code = 8.1 GM/DL 13.7-17.5 L 410) HEMATOCRIT (BEAKER) (test code = 25.4 % 40.1-51.0 L 411) MEAN CORPUSCULAR VOLUME (BEAKER) 100.0 fL 79.0-92.2 H (test code = 753) MEAN CORPUSCULAR HEMOGLOBIN 31.9 pg 25.7-32.2 (BEAKER) (test code = 751) MEAN CORPUSCULAR HEMOGLOBIN CONC 31.9 GM/DL 32.3-36.5 L (BEAKER) (test code = 752) RED CELL DISTRIBUTION WIDTH 13.3 % 11.6-14.4 (BEAKER) (test code = 412) PLATELET COUNT (BEAKER) (test 154 K/CU MM 150-450 code = 756) MEAN PLATELET VOLUME (BEAKER) 11.3 fL 9.4-12.4 (test code = 754) NUCLEATED RED BLOOD CELLS 0 /100 WBC 0-0 (BEAKER) (test code = 413) NEUTROPHILS RELATIVE PERCENT 57 % (BEAKER) (test code = 429) LYMPHOCYTES RELATIVE PERCENT 22 % (BEAKER) (test code = 430) MONOCYTES RELATIVE PERCENT 16 % (BEAKER) (test code = 431) EOSINOPHILS RELATIVE PERCENT 3 % (BEAKER) (test code = 432) BASOPHILS RELATIVE PERCENT 1 % (BEAKER) (test code = 437) NEUTROPHILS ABSOLUTE COUNT 3.95 K/ L 1.78-5.38 (BEAKER) (test code = 670) LYMPHOCYTES ABSOLUTE COUNT 1.49 K/ L 1.32-3.57 (BEAKER) (test code = 414) MONOCYTES ABSOLUTE COUNT (BEAKER) 1.12 K/ L 0.30-0.82 H (test code = 415) EOSINOPHILS ABSOLUTE COUNT 0.23 K/ L 0.04-0.54 (BEAKER) (test code = 416) BASOPHILS ABSOLUTE COUNT (BEAKER) 0.05 K/ L 0.01-0.08 (test code = 417) IMMATURE GRANULOCYTES-RELATIVE 1 % 0-1 PERCENT (BEAKER) (test code = 2801) POCT-GLUCOSE [id number] 08:38:00 Test Item Value Reference Range Interpretation Comments POC-GLUCOSE METER 204 mg/dL 70-110 H : TESTED A T [facility] 6720 (BEAKER) (test code = [facility], [facility]) [address]: Coat Operator/Techni vance ID = [id number] for ELVIN ESQUIVEL POCT-GLUCOSE [id number] 21:15:00 Test Item Value Reference Range Interpretation Comments POC-GLUCOSE METER 156 mg/dL 70-110 H : TESTED A T [facility] 6720 (BEAKER) (test code = [facility], [facility]) 18[address]: Coat Operator/Techni vance ID = [id number] for Dhara Jackson POCT-GLUCOSE [id number] 16:04:00 Test Item Value Reference Range Interpretation Comments POC-GLUCOSE METER 153 mg/dL 70-110 H : TESTED A T [facility] 6720 (BEAKER) (test code = [facility], [facility]) 86[address]: Coat Operator/Techni vance ID = [id number] for Wi lliams, Areiona POCT-GLUCOSE [id number] 12:34:00 Test Item Value Reference Range Interpretation Comments POC-GLUCOSE METER 229 mg/dL 70-110 H : TESTED A T [facility] 6720 (BEAKER) (test code = [facility], 1538) [address]: Coat Operator/Techni vance ID = [id number] for Wi lliams, Areiona POCT-GLUCOSE [id number] 05:06:00 Test Item Value Reference Range Interpretation Comments POC-GLUCOSE METER 129 mg/dL 70-110 H : TESTED A T [facility] 6720 (BEAKER) (test code = [facility], 1538) [address]87[address]: Coat Operator/Techni vance ID = [id number] for [place] LLIAMS, ELVIN POCT-GLUCOSE [id number] 21:18:00 Test Item Value Reference Range Interpretation Comments POC-GLUCOSE METER 184 mg/dL 70-110 H : TESTED A T [facility] 6720 (BEAKER) (test code = [facility], [facility]) 628[address]: Coat Operator/Techni vance ID = [id number] for [place] LLIAMS, ELVIN POCT-GLUCOSE [id number] 16:12:00 Test Item Value Reference Range Interpretation Comments POC-GLUCOSE METER 245 mg/dL 70-110 H : TESTED A T [facility] 6720 (BEAKER) (test code = [facility], [facility]) 67571: Coat Operator/Techni vance ID = [id number] for Wi lliams, Areiona POCT-GLUCOSE [id number] 11:53:00 Test Item Value Reference Range Interpretation Comments POC-GLUCOSE METER 183 mg/dL 70-110 H : TESTED A T [facility] 6720 (BEAKER) (test code = [facility], [facility]) 95975: Coat Operator/Techni vance ID = [id number] for Wi lliams, Areiona POCT-GLUCOSE [id number] 08:15:00 Test Item Value Reference Range Interpretation Comments POC-GLUCOSE METER 165 mg/dL 70-110 H : TESTED A T [facility] 6720 (BEAKER) (test code = [facility], [facility]) 022[address]: Coat Operator/Techni vance ID = [id number] for Wi lliams, Areiona CBC (Hemogram only)2020-11-03 07:18:00 Test Item Value Reference Range Interpretation Comments WBC (test code = 6690-2) 7.9 See_Comment [A utomated message] The system PlanG generated this result transmitted ref erence range: 3.5 - 10 .5 K/L. The refe rence range was not u sed to interpret this result as normal/abnor mal. RBC (test code = 789-8) 2.40 See_Comment L [Au tomated message] The system PlanG generated this result transmitted ref erence range: 4.63 - 6 .08 M/L. The refe rence range was not u sed to interpret this result as normal/abnor mal. MCHC (test code = 786-4) 32.0 See_Comment L [A utomated message] The system PlanG generated this result transmitted ref erence range: 32.3 - 3 6.5 GM/DL. The refe rence range was not u sed to interpret this result as normal/abnor mal. Hematocrit (test code = 24.1 % 40.1-51 L 4544-3) MCV (test code = 787-2) 100.4 fL 79-92.2 H MCH (test code = 785-6) 32.1 pg 25.7-32.2 RDW (test code = 788-0) 13.2 % 11.6-14.4 Platelets (test code = 157 See_Comment [Aut omated message] 777-3) The system PlanG generated this result transmitted ref erence range: 150 - 45 0 K/CU MM. The referen ce range was not u sed to interpret this result as normal/abnor mal. MPV (test code = 10.5 fL 9.4-12.4 03284-7) nRBC (test code = 413) 0 See_Comment [Aut omated message] The system PlanG generated this result transmitted ref erence range: 0 - 0 /1 00 WBC. The refere nce range was not u sed to interpret this result as normal/abnor mal. Lab Interpretation (test Abnormal code = 66589-0) [facility] (HEMOGRAM ONLY)2020-11-03 07:18:00 Test Item Value Reference Range Interpretation Comments WHITE BLOOD CELL COUNT (BEAKER) 7.9 K/ L 3.5-10.5 (test code = 775) RED BLOOD CELL COUNT (BEAKER) 2.40 M/ L 4.63-6.08 L (test code = 761) HEMOGLOBIN (BEAKER) (test code = 7.7 GM/DL 13.7-17.5 L 410) HEMATOCRIT (BEAKER) (test code = 24.1 % 40.1-51.0 L 411) MEAN CORPUSCULAR VOLUME (BEAKER) 100.4 fL 79.0-92.2 H (test code = 753) MEAN CORPUSCULAR HEMOGLOBIN 32.1 pg 25.7-32.2 (BEAKER) (test code = 751) MEAN CORPUSCULAR HEMOGLOBIN CONC 32.0 GM/DL 32.3-36.5 L (BEAKER) (test code = 752) RED CELL DISTRIBUTION WIDTH 13.2 % 11.6-14.4 (BEAKER) (test code = 412) PLATELET COUNT (BEAKER) (test 157 K/CU MM 150-450 code = 756) MEAN PLATELET VOLUME (BEAKER) 10.5 fL 9.4-12.4 (test code = 754) NUCLEATED RED BLOOD CELLS 0 /100 WBC 0-0 (BEAKER) (test code = 413) Basic Metabolic [id number] 07:06:00 Test Item Value Reference Range Interpretation Comments Sodium (test code = 140 meq/L 114-829 1635-2) Potassium (test code = 4.6 meq/L 3.5-5.1 2823-3) Chloride (test code = 104 meq/L 98-107 2075-0) CO2 (test code = 27 meq/L 22-29 2028-9) BUN (test code = 25 mg/dL 7-21 H 3094-0) Creatinine (test code 1.36 mg/dL 0.57-1.25 H = 2160-0) Glucose (test code = 181 mg/dL 70-105 H 2345-7) Calcium (test code = 8.3 mg/dL 8.4-10.2 L 93026-3) EGFR (test code = 51 mL/min/1.73 [place] [address]-5) NOT ACCURATE CREATININE CLEARANCE IN PREDICTING GLOMERULAR FILTRATION RATE . ESTIMATED GFR I S NOT APPLICABLE FOR DIALYSIS PATIENTS. CADY (test code = CADY) Coat Operator ID - TIMMY Campa Lab Interpretation Abnormal (test code = 99187-3) [facility] MET[facility]OL[facility] [id number] 07:06:00 Test Item Value Reference Range Interpretation Comments SODIUM (BEAKER) 140 meq/L 136-145 (test code = 381) POTASSIUM (BEAKER) 4.6 meq/L 3.5-5.1 (test code = 379) CHLORIDE (BEAKER) 104 meq/L 98-107 (test code = 382) CO2 (BEAKER) (test 27 meq/L 22-29 code = 355) BLOOD UREA NITROGEN 25 mg/dL 7-21 H (BEAKER) (test code = 354) CREATININE (BEAKER) 1.36 mg/dL 0.57-1.25 H (test code = 358) GLUCOSE RANDOM 181 mg/dL 70-105 H (BEAKER) (test code = 652) CALCIUM (BEAKER) 8.3 mg/dL 8.4-10.2 L (test code = 697) EGFR (BEAKER) (test 51 mL/min/1.73 ESTIMA SHANNEN GFR IS code = 1092) sq m NOT ACCURATE CREATININE CLEARANCE IN PREDICTING GLOMERULAR FILTRATION RATE . ESTIMATED GFR I S NOT APPLICABLE FOR DIALYSIS PATIEN TS. Coat Operator ID - TIMMY FPOCT-GLUCOSE [id number] 21:16:00 Test Item Value Reference Range Interpretation Comments POC-GLUCOSE METER 191 mg/dL 70-110 H : TESTED A T [facility] 6720 ([employer]) (test code = [facility], [facility]) 017[address]: Coat Operator/Techni vance ID = [id number] for [place] LLIAMS, ELVIN POCT-GLUCOSE [id number] 16:20:00 Test Item Value Reference Range Interpretation Comments POC-GLUCOSE METER 201 mg/dL 70-110 H : TESTED A T [facility] 6720 ([employer]) (test code = [facility], 153) 69457: Coat Operator/Techni vance ID = [id number] for FE LDER, XI POCT-GLUCOSE [id number] 12:34:00 Test Item Value Reference Range Interpretation Comments POC-GLUCOSE METER 167 mg/dL 70-110 H : TESTED A T [facility] 6720 (BEAKER) (test code = [facility], 153) 87160: Coat Operator/Techni vance ID = [id number] for FE LDER, XI POCT-GLUCOSE [id number] 11:00:00 Test Item Value Reference Range Interpretation Comments POC-GLUCOSE METER 171 mg/dL 70-110 H : TESTED A T [facility] 6720 (BEAKER) (test code = [facility], 153) 02754: Coat Operator/Techni vance ID = [id number] for NH EM, YUDITH FL, FLUORO, NON-SPECIFIC, UP TO 1 [id number] 08:51:00Reason for exam:->IM Rodding [facility] : 1940 Sex: MFluoroscopic unit utilized for a procedure performed in the OR. No interpretation was requested. Refer to the operative report for findings. Refer to PACS for patient radiation dose information.FL fluoro non-specific up to 1 [id number] 08:51:00 Interface, External Ris In - 11/02/2020 8:59 AM CSTFluoroscopic unit utilized for a procedure performed in the OR. No interpretation was requested. Refer to the operative report for findings. [place] PACS for patient radiation dose information.[facility] [id number] 06:47:00 Test Item Value Reference Range Interpretation Comments POC-GLUCOSE METER 108 mg/dL 70-110 : TESTED A T [facility] 67[facility] (test code = MARCELA Valdez [facility], 1538) [address]: Coat Operator/Techni vance ID = [id number] for MARIKA SERNAELVIN CASAS TSH/Free T4 If [id number] 06:02:00 Test Item Value Reference Range Interpretation Comments TSH (test code = 1.932 See_Comment [Automated 50433-4) message] The system which generated this result transmit shannen reference range : 0.350 - 4.940 uIU/mL. The reference range was not used to interpret this result as normal/abnormal . CADY (test code = CADY) Coat Operator ID - RADHA Ashraf Lab Interpretation Normal (test code = 49494-5) [facility] CenterVitamin B12 and [id number] 06:02:00 Test Item Value Reference Range Interpretation Comments Vitamin B12 (test 431 pg/mL 213-816 code = 2132-9) Folate (test code = 9.80 ng/mL See_Comment [Automa shannen 2284-8) message] The system which generated this result transmit shannen reference range : >=7.00. The reference range was not used to interpret this result as normal/abnormal . CADY (test code = CADY) Coat Operator ID Itzel GARCIA M Lab Interpretation Normal (test code = 65791-3) [facility] CenterTSH/FREE T4 IF [id number] 06:02:00 Test Item Value Reference Range Interpretation Comments THYROID STIMULATING HORMONE 1.932 uIU/mL 0.350-4.940 (BEAKER) (test code = 772) Coat Operator JASON GARCIA MVITAMIN B12 AND [id number] 06:02:00 Test Item Value Reference Range Interpretation Comments VITAMIN B12 (BEAKER) (test code = 431 pg/mL 213-816 774) FOLATE (BEAKER) (test code = 362) 9.80 ng/mL >=7.00 Coat Operator JASON GARCIA MBASIC METABOLIC [id number] 04:33:00 Test Item Value Reference Range Interpretation Comments SODIUM (BEAKER) 141 meq/L 136-145 (test code = 381) POTASSIUM (BEAKER) 4.7 meq/L 3.5-5.1 (test code = 379) CHLORIDE (BEAKER) 104 meq/L 98-107 (test code = 382) CO2 (BEAKER) (test 31 meq/L 22-29 H code = 355) BLOOD UREA NITROGEN 25 mg/dL 7-21 H (BEAKER) (test code = 354) CREATININE (BEAKER) 1.42 mg/dL 0.57-1.25 H (test code = 358) GLUCOSE RANDOM 89 mg/dL 70-105 (BEAKER) (test code = 652) CALCIUM (BEAKER) 8.4 mg/dL 8.4-10.2 (test code = 697) EGFR (BEAKER) (test 48 mL/min/1.73 ESTIMA SHANNEN GFR IS code = 1092) sq m NOT ACCURATE CREATININE CLEARANCE IN PREDICTING GLOMERULAR FILTRATION RATE . ESTIMATED GFR I S NOT APPLICABLE FOR DIALYSIS PATIEN TS. Coat Operator ID - RADHA [facility] (HEMOGRAM ONLY)2020-11-02 04:06:00 Test Item Value Reference Range Interpretation Comments WHITE BLOOD CELL COUNT (BEAKER) 8.1 K/ L 3.5-10.5 (test code = 775) RED BLOOD CELL COUNT (BEAKER) 2.85 M/ L 4.63-6.08 L (test code = 761) HEMOGLOBIN (BEAKER) (test code = 9.0 GM/DL 13.7-17.5 L 410) HEMATOCRIT (BEAKER) (test code = 28.2 % 40.1-51.0 L 411) MEAN CORPUSCULAR VOLUME (BEAKER) 98.9 fL 79.0-92.2 H (test code = 753) MEAN CORPUSCULAR HEMOGLOBIN 31.6 pg 25.7-32.2 (BEAKER) (test code = 751) MEAN CORPUSCULAR HEMOGLOBIN CONC 31.9 GM/DL 32.3-36.5 L (BEAKER) (test code = 752) RED CELL DISTRIBUTION WIDTH 13.2 % 11.6-14.4 (BEAKER) (test code = 412) PLATELET COUNT (BEAKER) (test 146 K/CU MM 150-450 L code = 756) MEAN PLATELET VOLUME (BEAKER) 10.7 fL 9.4-12.4 (test code = 754) NUCLEATED RED BLOOD CELLS 0 /100 WBC 0-0 (BEAKER) (test code = 413) POCT-GLUCOSE [id number] 22:00:00 Test Item Value Reference Range Interpretation Comments POC-GLUCOSE METER 241 mg/dL 70-110 H : TESTED A T [facility] 6720 (BEAKER) (test code = [facility], 1538) [address]: Coat Operator/Techni vance ID = [id number] for ELVIN PHILLIPS, [id number] 17:35:00 Test Item Value Reference Range Interpretation Comments ABO Grouping (test code = 2588) O Rh Factor (test code = 2589) POS [facility] CenterType and screen, [id number] 17:03:00 Test Item Value Reference Range Interpretation Comments ABO/RH AUTOMATED (BEAKER) (test O POSITIVE code = 2260) Ab Scrn (test code = 890-4) NEGATIVE [facility]2D Echo W/Doppler(CW/PW/Color)2020-11-01 16:29:24 Ejection FractionSLEH ECHO HEARTLAB MKCKESSON CPACSInterface, External Ris In - 11/01/2020 4:29 PM CSTTransthoracic Echocardiography Report (TTE) Demographics Patient Name NATE POWER Date ofStudy 11/01/2020 Gender Male Visit Number [id number] Race Unknown Room Number 1530 Number Date of 1940 Referring Elenita Davis MD Physician Age 80 year(s) 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 No prior study for comparison. Normal overall left ventricular systolic function (LVEF 55-60% qualitatively). No apparent segmental wallmotion abnormalities. Moderate . AoV area at rest by continuity equation is in the range of 1.12 cm2. AoV resting dimensionless obstructive index (DOI) = 0.27. AoV resting Peak Gradient = 24mmHg. Note Doppler interrogation is limited by atrial fibrillation as well as off-axis interrogation of velocities due to patient anatomy. Mild-moderate tricuspid regurgitation. Estimated peak systolic PA pressure is 35-30 mmHg. Signature Findings Technical Quality: Technically difficult exam. Rhythm/BP Atrial fibrillation with controlled ventricular response. Left Ventricle Normal left ventricular chamber size. Normal wall thickness. Normal overall left ventricular systolic function (LVEF 55-60% qualitatively). No apparent segmental wall motion abnormalities. Left Atrium LA size is normal (16-34 ml/m2) . Right Ventricle The right ventricular chamber size and systolic function are within normal limits. Right Atrium RA size is mildly dilated. Aortic Valve Moderate . AoV area at rest by continuity equation is in the range of 1.12 cm2. AoV resting dimensionless obstructive index (DOI) = 0.27. AoV resting Peak Gradient = 24mmHg. Mtbsrdej-ua-ajdudi AoV cusp calcification. Note Doppler interrogation is limited by atrial fibrillation as well as off-axis interrogation of velocities due to patient anatomy. Mitral Valve Normal MV structure and function. Tricuspid Valve Mild-moderate tricuspid regurgitation. Estimated peak systolic PA pressure is 30-35 mmHg.Pulmonic Valve Normal PV structure appears normal by available views. Pericardium No significant pericardial effusion is visualized. IVC/SVC/PA/PV/Pleural The estimated RA pressure by IVC dynamics 0-5mmHg . Chambers/Structures Left Ventricle LVIDd: 5.29 cmLV Septum Diastolic: 0.94 cm LV PW Diastolic: 0.82 cm LVOT Diameter: 2.31 cm Doppler/Quantitative Me asurements Mitral Valve MV Robbin. Peak: Tissue Doppler E' Septal Velocity: 0.06 m/s E' Lateral Velocity: 0.03 m/s Aortic Valve Peak Velocity: 3.46 m/s Mean Velocity: 2.26 m/s Peak Gradient: 47.88 mmHg Mean Gradient: 23.94 mmHg AV Area (continuity): 1.12 cm^2 AV VTI: 66.15 cm AV DVI: 0.27 LVOT Peak Velocity: 1.01 m/s Peak Gradient: 4.09 mmHg Mean Velocity: 0.65 m/s Mean Gradient: 1.96 mmHg LVOT Diameter: 2.31 cm LVOT VTI: 17.71 cm LVOT Area: 4.19 cm^2 LVOT SV:74.18 ml LVOT CO: 4.53 l/min LVOT CI: 2.34 l/min/m^2 Tricuspid Valve TR Velocity: 2.62 m/s TR Gradient: 27.49 mmHgKaiser P[facility] Center PET/CT, CARDIAC PERF REST AND [id number] 16:25:00Reason for exam:->pre-op clearance, poor functional capacity. h/o coronary stent [facility] 1940 Sex: MFINAL REPORT PROCEDURE: MYOCARDIAL PERFUSION PET IMAGING (Rest/Stress)CPT CODE: 40862 INDICATION: Define Extent/Severity of Known CAD, Preoperative Clearance for Hip Fracture CARDIOVASCULAR PROFILE:CAD History: Known CAD, history of coronary stentRisk Factors: Diabetes, hypertension, tobacco use, peripheral vascular diseaseBMI: 26.5Medications: Metoprolol, atorvastatin STRESS PROTOCOL:Pharmacologic stress was achieved with a 10-second intravenous infusion of regadenoson0.4 mg. The radiopharmaceutical was administered 30 seconds after the start of the regadenoson infusion. IMAGING PROTOCOL:Limited low-dose CT imaging was performed for attenuation correction. 40.0 mCi of Rb-82 chloride was injected intravenously at rest, and gated PET images were obtained. Then, 40.0 mCi of Rb-82 chloride was injected intravenously at peak stress, and gated PET images were obtained. Image quality is good. REST FINDINGS:HR: 80/minBP: 109/50 mmHgPrelim. EKG: Normal sinus rhythm, rightbundle branch block.Perfusion: Decreased radiotracer uptake in the basal to mid inferolateral and anterolateral segments of the LV.Wall Motion: Normal (LVEF 56%).LV Volume: Normal.RV Volume: Normal. STRESS FINDINGS:HR: 81/min (57% of MPHR)BP: 117/71 mmHgPrelim. EKG: No ischemic changes.Symptoms: Dyspnea, headache (resolved with Aminophyllin 125 mg iv).Perfusion: Decreased radiotracer uptake in the basal to mid inferolateral and anterolateral segments of the LV.Wall Motion: Normal (LVEF 65%).LV Volume: Not significantly changed from rest. IMPRESSION:1. Abnormal study.2. Normal myocardial perfusion. There is a medium size, mild severity, mostly fixed perfusion abnormality in the basal to mid inferolateral and anterolateral segments of the LV.3. Normal resting LVEF, which does not deteriorate with pharmacologic stress.4. Normal extracardiac tracer distribution.5. There is no prior study for comparison. Signed: Kervin Kang MDReport Verified Date/Time: 11/01/2020 16:25:27 Reading Location: [address] P[address] Reading [facility] NM Myocardial Perfusion Pet/CT (Rest & Stress)2020-11-01 16:25:00Interface, External Ris In - 11/01/2020 4:27 PM CSTFINAL REPORT PROCEDURE: MYOCARDIAL PERFUSION PET IMAGING (Rest/Stress)CPT CODE: 68156 INDICATION: Define Extent/Severity of Known CAD, Preoperative Clearance for Hip Fracture CARDIOVASCULAR PROFILE:CAD History: Known CAD, history of coronary stentRisk Factors: Diabetes, hypertension, tobacco use, peripheral vascular diseaseBMI: 26.5Medications: Metoprolol, atorvastatin STRESS PROTOCOL:Pharmacologic stress was achieved with a 10-second intravenous infusion of regadenoson 0.4 mg. The radiopharmaceutical was administered 30 seconds after the start of the regadenoson infusion. IMAGING PROTOCOL:Limited low-dose CT imaging was performed for attenuation correction. 40.0 mCi of Rb-82 chloride was injected intravenously at rest, and gated PET images were obtained. Then, 40.0 mCi of Rb-82 chloride was injected intravenously at peakstress, and gated PET images were obtained. Image quality is good. REST FINDINGS:HR: 80/minBP: 109/50 mmHgPrelim. EKG: Normal sinus rhythm, right bundle branch block.Perfusion: Decreased radiotracer uptake in the basal to mid inferolateral and anterolateral segments of the LV.Wall Motion: Normal (LVEF56%).LV Volume: Normal.RV Volume: Normal. STRESS FINDINGS:HR: 81/min (57% of MPHR)BP: 117/71 mmHgPrelim. EKG: No ischemic changes.Symptoms: Dyspnea, headache (resolved with Aminophyllin 125 mg iv).Perfusion: Decreased radiotracer uptake in the basal to mid inferolateral and anterolateral segments of the LV.Wall Motion: Normal (LVEF 65%).LV Volume: Not significantly changed from rest. IMPRESSION:1. Abnormal study.2. Normal myocardial perfusion. There is a medium size, mild severity, mostly fixed perfusion abnormality in the basal to mid inferolateral and anterolateral segments of the LV.3. Normal resting LVEF, which does not deteriorate with pharmacologic stress.4. Normal extracardiac tracer distribution.5. There is no prior study for comparison. Signed: Kervin Kang MDReport Verified Date/Time:11/01/2020 16:25:27 Reading Location: [address] Reading Room Electronically signedby: KERVIN KANG MD on 11/01/2020 04:25 [facility] 12 [id number] 13:26:30Interface, External Ris In - 11/01/2020 1:26 PM CSTVentricular Rate 82 BPMAtrial Rate 82 BPMQRS Duration 146 msQ-T Interval 434 msQTC Calculation(Bazett) 507 msR Montgomery -80 degreesT Montgomery 37 degreesAtrial fibrillationRight superior axis deviationRight bundle branch blockNonspecific T wave abnormalityProlonged QTAbnormal ECG31 Oct 2020No significant changesConfirmed by MD PAULINO, LOBO ([id number]) on 11/01/2020 1:26:25 [facility]iumPOCT[facility]SE [id number] 13:15:00 Test Item Value Reference Range Interpretation Comments POC-GLUCOSE METER 144 mg/dL 70-110 H : TESTED A T [facility] 6720 ([employer]) (test code = [facility] [place], 1538) [address]: Coat Operator/Techni vance ID = [id number] for MARIXA MADDOX Hemoglobin [id number] 11:33:00 Test Item Value Reference Range Interpretation Comments Hemoglobin A1C (test code 6.2 % 4.3-6.1 H = 4548-4) CADY (test code = CADY) Coat Operator ID - [id number] Lab Interpretation (test Abnormal code = 86501-6) [facility] CenterHEMOGLOBIN [id number] 11:33:00 Test Item Value Reference Range Interpretation Comments HEMOGLOBIN A1C (BEAKER) (test code = 6.2 % 4.3-6.1 H 368) Coat Operator ID - [id number]-CoV2/RT-PCR (Asymptomatic ONLY)2020-11-01 10:43:00 Test Item Value Reference Range Interpretation Comments SARS-COV2/RT-PCR Negative Not Detected, (test code = Negative, See 61901-2) external report for linked test [facility]COV-2 [facility] (test code = 30701-8) CADY (test code = Negative result for this CADY) test determines that SARS-CoV-2 RNA was not present in the specimen above the Limit of Detection (LOD). However, Negative results do not preclude SARS-CoV-2 infection and should not be used as the sole basis for treatment or patient management decisions. Negative results must be combined with clinical observations, patient history, and epidemiological information. A false negative result may occur if a specimen is improperly collected, transported or handled. A false negative result should be considered if patient's recent exposures or clinical presentation indicate that COVID-19 (SARS-CoV-2) is likely and diagnostic tests for other causes of illness are negative. Re-testing should be considered in cases of suspected false negatives. The limit of detection for this assay is 800 copies/mL. This SARS CoV-2 test is a real-time RT-PCR test intended for the qualitative detection of nucleic acid from SARS-CoV-2 in a nasopharyngeal swab specimen collected from individuals suspected of COVID-19 by their healthcare provider. This test has not been Food and Drug Administration (FDA) cleared or approved. This is a modified version of an approved Emergency Use Authorization (EUA) and is in the process of review by the FDA. Once authorized by the FDA, the issued EUA will be effective until the declaration that circumstances exist justifying the authorization of the emergency use of in vitro diagnostic tests for detection and/or diagnosis of COVID-19 is terminated under Section 564(b)(2) of the Act or the EUA is revoked under Section 564(g) of the Act. Fact Sheet for Healthcare Providers:https://www.[employer]/sites/default/f laya/product/documents/F act_Sheet_HC_Providers_L apk_PZZQ-MwK-7.pdf Fact Sheet for Healthcare Patients:https://www.[employer]/sites/default/fi les/product/documents/Fa ct_Sheet_Patients_Lyra_S ARS-CoV-2.pdf Performing Laboratory:[facility] [place] [address] [facility]2020-11-01 10:43:00 Test Item Value Reference Range Interpretation Comments SARS-COV2/RT-PCR (test Negative Not Detected, Negative, code = 1864288) See external report for linked test SARS-COV-2 PERFORMING LAB [facility] (test code = 9944884) Negative result for this test determines that SARS-CoV-2 RNA was not present in the specimen above the Limit of Detection (LOD). However, Negative results do not preclude SARS-CoV-2 infection and should not be used as the sole basis for treatment or patient management decisions. Negative results mustbe combined with clinical observations, patient history, and epidemiological information. A false negative result may occur if a specimen is improperly collected, transported or handled. A false negative result should be considered if patient's recent exposures or clinical presentation indicate that COVID-19 (SARS-CoV-2) is likely and diagnostic tests for other causes of illness are negative. Re-testing should be considered in cases of suspected false negatives.The limit of detection for this assay is 800 copies/mL.This SARS CoV-2 test is a real-time RT-PCR test intended for the qualitative detection of nucleic acid from SARS-CoV-2 in a nasopharyngeal swab specimen collected from individuals susp ected of COVID-19 by their healthcare provider.This test has not been Food and Drug Administration (FDA) cleared or approved. This is a modified version of an approved Emergency Use Authorization (EUA) and is in the process of review by the FDA. Once authorized by the FDA, the issued EUA will be effective until the declaration that circumstances exist justifying the authorization of the emergency use of in vitro diagnostic tests for detection and/or diagnosis of COVID-19 is terminated under Section 564(b)(2) of the Act or the EUA is revoked under Section 564(g) of the Act.Fact Sheet for Healthcare Providers:https://www.[employer]/sites/default/files/product/documents/Fact_Shee e_RP_Scuctthmi_Nvta_FXZG-VmC-5.pdfFact Sheet for Healthcare Patients:https://www.[employer]/sites/default/files/product/ documents/Dued_Xvtfd_Ipqmrrgf_Txrs_AMMA-XoO-0.pdfPerforming Laboratory:[facility], [place] [address]SEDZJ METABOLIC PANEL 2020-11-01 07:54:00 Test Item Value Reference Range Interpretation Comments SODIUM (BEAKER) 136 meq/L 136-145 (test code = 381) POTASSIUM (BEAKER) 4.5 meq/L 3.5-5.1 (test code = 379) CHLORIDE (BEAKER) 101 meq/L 98-107 (test code = 382) CO2 (BEAKER) (test 28 meq/L 22-29 code = 355) BLOOD UREA NITROGEN 20 mg/dL 7-21 (BEAKER) (test code = 354) CREATININE (BEAKER) 1.43 mg/dL 0.57-1.25 H (test code = 358) GLUCOSE RANDOM 175 mg/dL 70-105 H (BEAKER) (test code = 652) CALCIUM (BEAKER) 8.2 mg/dL 8.4-10.2 L (test code = 697) EGFR (BEAKER) (test 48 mL/min/1.73 ESTIMA SHANNEN GFR IS code = 1092) sq m NOT ACCURATE CREATININE CLEARANCE IN PREDICTING GLOMERULAR FILTRATION RATE . ESTIMATED GFR I S NOT APPLICABLE FOR DIALYSIS PATIEN TS. Coat Operator ID - ROSIANGPOCT-GLUCOSE [id number] 07:40:00 Test Item Value Reference Range Interpretation Comments POC-GLUCOSE METER 144 mg/dL 70-110 H : [facility] (BEAKER) (test code = MARCELA Valdez [facility], 1538) [address]: Coat Operator/Techni vance ID = [id number] for MARIXA MADDOX Vitamin D, 45-[id number] 07:34:00 Test Item Value Reference Range Interpretation Comments Vitamin D 25-Hydroxy 23.5 ng/mL 6.6-49.9 (test code = 2764) CADY (test code = CADY) Effective 08/21/2017: Reference Range ChangeNew: 6.6-49.9 ng/mL Previous: 13.0-47.8 ng/mL Recommended Vitamin D Target Range: 30.0-40.0 ng/mLOperator ID - PIAYA L Lab Interpretation (test Normal code = 96367-3) [facility] Center[facility]IT[facility] D, 23-[id number] 07:34:00 Test Item Value Reference Range Interpretation Comments VITAMIN D 25-OH (BEAKER) (test 23.5 ng/mL 6.6-49.9 code = 2764) Effective 08/21/2017: Reference Range ChangeNew: 6.6-49.9 ng/mL Previous: 13.0-47.8 ng/mLRecommended Vitamin D Target Range: 30.0-40.0 ng/mLOperator ID - PIAYA LCBC (HEMOGRAM ONLY)2020-11-01 06:35:00 Test Item Value Reference Range Interpretation Comments WHITE BLOOD CELL COUNT (BEAKER) 9.3 K/ L 3.5-10.5 (test code = 775) RED BLOOD CELL COUNT (BEAKER) 2.99 M/ L 4.63-6.08 L (test code = 761) HEMOGLOBIN (BEAKER) (test code = 9.5 GM/DL 13.7-17.5 L 410) HEMATOCRIT (BEAKER) (test code = 29.7 % 40.1-51.0 L 411) MEAN CORPUSCULAR VOLUME (BEAKER) 99.3 fL 79.0-92.2 H (test code = 753) MEAN CORPUSCULAR HEMOGLOBIN 31.8 pg 25.7-32.2 (BEAKER) (test code = 751) MEAN CORPUSCULAR HEMOGLOBIN CONC 32.0 GM/DL 32.3-36.5 L (BEAKER) (test code = 752) RED CELL DISTRIBUTION WIDTH 13.2 % 11.6-14.4 (BEAKER) (test code = 412) PLATELET COUNT (BEAKER) (test 153 K/CU MM 150-450 code = 756) MEAN PLATELET VOLUME (BEAKER) 11.0 fL 9.4-12.4 (test code = 754) NUCLEATED RED BLOOD CELLS 0 /100 WBC 0-0 (BEAKER) (test code = 413) RAD, FEMUR, MIN. 2 VIEWS, [id number] 03:58:00Reason for exam:->Leftt hip [facility]xCH[facility] : 1940 Sex: MFINAL REPORT CLINICAL HISTORY: Pain COMPARISON: None. FINDINGS: 4 images of the left femur, 4 images of the left lower leg, 3 images of the left ankle and 4 images of theleft foot are submitted. Evaluation of the foot is limited by nonstandard frontal and oblique projections, possibly secondary to patient immobility. The digits are poorly visualized. There is a intertro chanteric fracture of the left femur. Left hip joint is aligned. 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 There is no acute fracture or malalignment of the left lower leg, left ankle or visualized portions of the left foot. Vascular calcifications are present in the left lower extremity. There are multiple surgical clips in the left lower leg. IMPRESSION: Limited examination, as described. Intertrochanteric fracture of the left femur. Signed: Lilli Singh Verified Date/Time: 11/01/2020 03:58:30 RAD, FOOT, MIN 3 VIEWS, [id number] 03:58:00Reason for exam:->left foot pain[facility] : 1940 Sex: MFINAL REPORT CLINICAL HISTORY: Pain COMPARISON: None. FINDINGS: 4 images of the left femur, 4 images of the left lower leg, 3 images of the left ankle and 4 images of theleft foot are submitted. Evaluation of the foot is limited by nonstandard frontal and oblique projections, possibly secondary to patient immobility. The digits are poorly visualized. There is a intertro chanteric fracture of the left femur. Left hip joint is aligned. 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 There is no acute fracture or malalignment of the left lower leg, left ankle or visualized portions of the left foot. Vascular calcifications are present in the left lower extremity. There are multiple surgical clips in the left lower leg. IMPRESSION: Limited examination, as described. Intertrochanteric fracture of the left femur. Signed: Lilli Singh Verified Date/Time: 11/01/2020 03:58:30 RAD, ANKLE, MIN 3 VIEWS, [id number] 03:58:00Reason for exam:- >left foot pain [facility] : 1940 Sex: MFINAL REPORT CLINICAL HISTORY: Pain COMPARISON: None. FINDINGS: 4 images of the left femur, 4 images of the left lower leg, 3 images of the left ankle and 4 images of theleft foot are submitted. Evaluation of the foot is limited by nonstandard frontal and oblique projections, possibly secondary to patient immobility. The digits are poorly visualized. There is a intertro chanteric fracture of the left femur. Left hip joint is aligned. 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 There is no acute fracture or malalignment of the left lower leg, left ankle or visualized portions of the left foot. Vascular calcifications are present in the left lower extremity. There are multiple surgical clips in the left lower leg. IMPRESSION: Limited examination, as described. Intertrochanteric fracture of the left femur. Signed: Lilli Singh Verified Date/Time: 11/01/2020 03:58:30 RAD, LEG, [id number] 03:58:00Reason for exam:->left leg pain [facility] 1940 Sex: MFINAL REPORT CLINICAL HISTORY: Pain COMPARISON: None. FINDINGS: 4 images of the left femur, 4 images of the left lower leg, 3 images of the left ankle and 4 images of theleft foot are submitted. Evaluation of the foot is limited by nonstandard frontal and oblique projections, possibly secondary to patient immobility. The digits are poorly visualized. There is a intertro chanteric fracture of the left femur. Left hip joint is aligned. 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 There is no acute fracture or malalignment of the left lower leg, left ankle or visualized portions of the left foot. Vascular calcifications are present in the left lower extremity. There are multiple surgical clips in the left lower leg. IMPRESSION: Limited examination, as described. Intertrochanteric fracture of the left femur. Signed: Lilli Singh Verified Date/Time: 11/01/2020 03:58:30 XR femur 2 views [id number] 03:58:00Interface, External Ris In - 11/01/2020 4:00 AM CSTFINAL REPORT CLINICAL HISTORY: Pain COMPARISON: None. FINDINGS: 4 images of the left femur, 4 images of the left lower leg, 3images of the left ankle and 4 images of the left foot are submitted. Evaluation of the foot is limited by nonstandard frontal and oblique projections, possibly secondary to patient immobility. The digits are poorly visualized. There is a intertrochanteric fracture of the left femur. Left hip joint isaligned. 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 There is no acute fracture or malalignment of the left lower leg, left ankle or visualized portions of the left foot. Vascular calcifications are present in the left lower extremity. There are multiple surgical clips in the left lower leg. IMPRESSION: Limited examination, as described. Intertrochanteric fracture of the left femur. Signed: Nicole Singh Verified Date/Time: 11/01/2020 03:58:30 [facility] tibia [facility] fibula 2 views [id number] 03:58:00Interface, External Ris In - 11/01/2020 4:00 AM CSTFINAL REPORT CLINICAL HISTORY: Pain COMPARISON: None. FINDINGS: 4 images of the left femur, 4 images of the left lower leg, 3images of the left ankle and 4 images of the left foot are submitted. Evaluation of the foot is limited by nonstandard frontal and oblique projections, possibly secondary to patient immobility. The digits are poorly visualized. There is a intertrochanteric fracture of the left femur. Left hip joint isaligned. 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 There is no acute fracture or malalignment of the left lower leg, left ankle or visualized portions of the left foot. Vascular calcifications are present in the left lower extremity. There are multiple surgical clips in the left lower leg. IMPRESSION: Limited examination, as described. Intertrochanteric fracture of the left femur. Signed: Nicole Singh Verified Date/Time: 11/01/2020 03:58:30 [facility] 3 views [id number] 03:58:00Interface, External Ris In - 11/01/2020 4:00 AM CSTFINAL REPORT CLINICAL HISTORY: Pain COMPARISON: None. FINDINGS: 4 images of the left femur, 4 images of the left lower leg, 3images of the left ankle and 4 images of the left foot are submitted. Evaluation of the foot is limited by nonstandard frontal and oblique projections, possibly secondary to patient immobility. The digits are poorly visualized. There is a intertrochanteric fracture of the left femur. Left hip joint isaligned. 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 There is no acute fracture or malalignment of the left lower leg, left ankle or visualized portions of the left foot. Vascular calcifications are present in the left lower extremity. There are multiple surgical clips in the left lower leg. IMPRESSION: Limited examination, as described. Intertrochanteric fracture of the left femur. Signed: Nicole Singh Verified Date/Time: 11/01/2020 03:58:30 [facility] 3 views [id number] 03:58:00Interface, External Ris In - 11/01/2020 4:00 AM CSTFINAL REPORT CLINICAL HISTORY: Pain COMPARISON: None. FINDINGS: 4 images of the left femur, 4 images of the left lower leg, 3images of the left ankle and 4 images of the left foot are submitted. Evaluation of the foot is limited by nonstandard frontal and oblique projections, possibly secondary to patient immobility. The digits are poorly visualized. There is a intertrochanteric fracture of the left femur. Left hip joint isaligned. 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 There is no acute fracture or malalignment of the left lower leg, left ankle or visualized portions of the left foot. Vascular calcifications are present in the left lower extremity. There are multiple surgical clips in the left lower leg. IMPRESSION: Limited examination, as described. Intertrochanteric fracture of the left femur. Signed: Nicole Singh MDReport Verified Date/Time: 11/01/2020 03:58:30 [facility] 2020-10-31 22:39:00 Test Item Value Reference Range Interpretation Comments Troponin I (test code = 0.02 ng/mL 0-0.03 31378-3) CADY (test code = CADY) Troponin I (TnI) levels must be interpreted in the context of the presenting symptoms and the clinical findings. Elevated TnI levels indicate myocardial damage, but are not specific for ischemic heart disease. Elevated TnI levels are seen in patients with other cardiac conditions (including myocarditis and congestive heart failure), and slight TnI elevations occur in patients with other conditions, including sepsis, renal failure, acidosis, acute neurological disease, and persistent tachyarrhythmia.Opera tor ID - DB Lab Interpretation (test Normal code = 97799-5) [facility] [id number] 22:39:00 Test Item Value Reference Range Interpretation Comments TROPONIN I (BEAKER) (test code = 0.02 ng/mL 0.00-0.03 397) Troponin I (TnI) levels must be interpreted in the context of the presenting symptoms and the clinical findings. Elevated TnI levels indicate myocardial damage, but are not specific for ischemic heart disease. Elevated TnI levels are seen in patients with other cardiac conditions (including myocarditis and congestive heart failure), and slight TnI elevations occur in patients with other conditions, including sepsis, renal failure, acidosis, acute neurological disease, and persistent tachyarrhythmia.Coat Operator ID - DBBASIC METABOLIC PANEL 2020-10-31 22:32:00 Test Item Value Reference Range Interpretation Comments SODIUM (BEAKER) 132 meq/L 136-145 L (test code = 381) POTASSIUM (BEAKER) 5.1 meq/L 3.5-5.1 (test code = 379) CHLORIDE (BEAKER) 100 meq/L 98-107 (test code = 382) CO2 (BEAKER) (test 24 meq/L 22- code = 355) BLOOD UREA NITROGEN 17 mg/dL 7-21 (BEAKER) (test code = 354) CREATININE (BEAKER) 1.37 mg/dL 0.57-1.25 H (test code = 358) GLUCOSE RANDOM 192 mg/dL 70-105 H (BEAKER) (test code = 652) CALCIUM (BEAKER) 8.2 mg/dL 8.4-10.2 L (test code = 697) EGFR (BEAKER) (test 50 mL/min/1.73 ESTIMA SHANNEN GFR IS code = 1092) sq m NOT ACCURATE CREATININE CLEARANCE IN PREDICTING GLOMERULAR FILTRATION RATE . ESTIMATED GFR I S NOT APPLICABLE FOR DIALYSIS PATIEN TS. Coat Operator ID - DBProthrombin time/[id number] 22:19:00 Test Item Value Reference Interpretation Comments Range Protime (test code = 15.4 See_Comment H [Autom ated 4772-2) message] The system which generated this result transmitted reference range : 11.9 - 14.2 seconds. The reference range was not used to interpret this result as normal/abnormal . INR (test code = 1.25 See_Comment [Automated 9951-6) message] The system which generated this result transmitted reference range : <=5.90. The reference range was not used to interpret this result as normal/abnormal . CADY (test code = Effective 04/08/2019: CADY) PT Reference Range ChangeNew: 11.9-14.2 Previous: 11.7-14.7 RECOMMENDED COUMADIN/WARFARIN INR THERAPY RANGESSTANDARD DOSE: 2.0-3.0 Includes: PROPHYLAXIS for venous thrombosis, systemic embolization; TREATMENT for venous thrombosis and/or pulmonary embolus.HIGH RISK: Target INR is 2.5-3.5 for patients wiht mechanical heart valves. Lab Interpretation Abnormal (test code = 41586-3) [facility] CenterPROTHROMBIN TIME/[id number] 22:19:00 Test Item Value Reference Range Interpretation Comments PROTIME (BEAKER) (test code = 15.4 seconds 11.9-14.2 H 759) INR (BEAKER) (test code = 370) 1.25 <=5.90 Effective 04/08/2019: PT Reference Range ChangeNew: 11.9-14.2 Previous: 11.7- 14.7RECOMMENDED COUMADIN/WARFARIN INR THERAPY RANGESSTANDARD DOSE: 2.0-3.0 Includes: PROPHYLAXIS for venous thrombosis, systemic embolization; TREATMENT for venous thrombosis and/or pulmonary embolus.HIGH RISK: Target INR is2.5-3.5 for patients wiht mechanical heart valves.CBC W/PLT COUNT & AUTO [id number] 22:08:00 Test Item Value Reference Range Interpretation Comments WHITE BLOOD CELL COUNT (BEAKER) 9.6 K/ L 3.5-10.5 (test code = 775) RED BLOOD CELL COUNT (BEAKER) 3.03 M/ L 4.63-6.08 L (test code = 761) HEMOGLOBIN (BEAKER) (test code = 9.6 GM/DL 13.7-17.5 L 410) HEMATOCRIT (BEAKER) (test code = 30.6 % 40.1-51.0 L 411) MEAN CORPUSCULAR VOLUME (BEAKER) 101.0 fL 79.0-92.2 H (test code = 753) MEAN CORPUSCULAR HEMOGLOBIN 31.7 pg 25.7-32.2 (BEAKER) (test code = 751) MEAN CORPUSCULAR HEMOGLOBIN CONC 31.4 GM/DL 32.3-36.5 L (BEAKER) (test code = 752) RED CELL DISTRIBUTION WIDTH 13.2 % 11.6-14.4 (BEAKER) (test code = 412) PLATELET COUNT (BEAKER) (test 150 K/CU MM 150-450 code = 756) MEAN PLATELET VOLUME (BEAKER) 11.1 fL 9.4-12.4 (test code = 754) NUCLEATED RED BLOOD CELLS 0 /100 WBC 0-0 (BEAKER) (test code = 413) NEUTROPHILS RELATIVE PERCENT 76 % (BEAKER) (test code = 429) LYMPHOCYTES RELATIVE PERCENT 12 % (BEAKER) (test code = 430) MONOCYTES RELATIVE PERCENT 11 % (BEAKER) (test code = 431) EOSINOPHILS RELATIVE PERCENT 0 % (BEAKER) (test code = 432) BASOPHILS RELATIVE PERCENT 0 % (BEAKER) (test code = 437) NEUTROPHILS ABSOLUTE COUNT 7.26 K/ L 1.78-5.38 H (BEAKER) (test code = 670) LYMPHOCYTES ABSOLUTE COUNT 1.11 K/ L 1.32-3.57 L (BEAKER) (test code = 414) MONOCYTES ABSOLUTE COUNT (BEAKER) 1.08 K/ L 0.30-0.82 H (test code = 415) EOSINOPHILS ABSOLUTE COUNT 0.04 K/ L 0.04-0.54 (BEAKER) (test code = 416) BASOPHILS ABSOLUTE COUNT (BEAKER) 0.04 K/ L 0.01-0.08 (test code = 417) IMMATURE GRANULOCYTES-RELATIVE 1 % 0-1 PERCENT (BEAKER) (test code = 2801) CHEM [id number] 09:16:002.1[facility]annCHEM [id number] 09:16:003.5 [facility]CHE[facility] [id number] 09:16:16037Gmyymbdm HermannCHEM PANEL 2019-07-06 09:16:0029[facility]annCHEM TLMMQ8162-42-87 09:16:001.12[facility]annCHEM [id number] 09:16:38398Hnqccovg [facility]annCHEM IYKHN3817-92-97 09:16:003.9[facility]annCHEM HKRWX3792-46-88 09:16:32922Qpmotdbl HermannCHEM PIUAN0110-30-36 09:16:0032[facility]annCHEM COUIL1606-77-43 09:16:007.6 [facility]CHE[facility] EZRDC1173-91-17 09:16:006.9[facility]annCHEM PANEL 2019-07-06 09:16:0063[facility]annCHEM WAKVC0417-04-61 09:16:007.6[facility] UjpxmgvKFPEVEKVQD2157-77-30 09:16:007.2[facility] RbccmthWJBCNZHIEY7432-10-49 09:16:002.93[facility] WuvlmqcMYDCMRYSKW5155-97-04 09:16:009.4[facility] TUYASBGGDY9656-70-46 09:16:0028.1[facility] KflneokGHRQODFBUA6748-06-86 09:16:00 96.1[facility] BcrtlosWPGYLIGUNG4548-39-70 09:16:00 Test Item Value Reference Range Interpretation Comments MCH (test code = MCH) 32.1 pg 27.0-31.0 [facility] FmftsueACLCHUTQRW6717-04-04 09:16:0033.4[facility]annHEMATOLOGY 2019-07-06 09:16:0016.1[facility] QshbjaxCMEKCPVNLT6459-45-64 09:16:79542Fuaaodob RvyskwaTKZZUQFBLR4306-03-64 09:16:007.9[facility] HermannSTIMULATION STUDIES 2019-07-06 09:16:0010.8[facility]annBLOOD BANK [id number] 16:00:00 Negative (07/05/19 11:00 AM)[facility]annBLOOD BANK [id number] 14:30:00 Product available 4(07/05/19 9:30 AM)[facility]annCHEM JWPPW6344-25-97 09:10:007.6[facility]annCHEM GTQDC1391-40-90 09:10:51535Uhkjkgth HermannCHEM RPKRC6481-54-18 09:10:0045[facility]annCHEM RQUHJ8145-78-26 09:10:001.69 [facility]annCHEM APXQM9473-20-70 09:10:65977Pqyxnlqx HermannCHEM PANEL 2019-07-05 09:10:003.7[facility]annCHEM APRAT1375-32-30 09:10:48439Hrvnpvof HermannCHEM ECFFJ2885-40-83 09:10:0032[facility]annCHEM LGJWG7805-28-84 09:10:007.6[facility]annCHEM VJQUQ4421-31-62 09:10:008.7[facility]annCHEM ELZWF0471-05-08 09:10:0038[facility]annCHEM BDBCF8387-74-05 09:10:002.0 [facility]annCHEM NCHVY6233-18-05 09:10:003.7[facility]annHEMATOLOGY 2019-07-05 09:10:008.6[facility] LaxvqfbVDZZHAESBH6573-00-87 09:10:002.48[facility] IyqtrwxWIWXMLVERE2016-25-40 09:10:008.0[facility] SshzexjJNNQYVZROX4756-87-96 09:10:0024.1[facility] PrsabjcUTALWHXPWC2553-74-89 09:10:0097.1[facility] XMNHIBVLCS4664-97-16 09:10:00 Test Item Value Reference Range Interpretation Comments MCH (test code = MCH) 32.2 pg 27.0-31.0 [facility] GzdsvauJUKDWHQKAB1762-81-43 09:10:0033.2[facility]annHEMATOLOGY 2019-07-05 09:10:0016.5[facility] KswbwtxFENWMIZTJR0254-05-59 09:10:32017Sxdjqsas RdbvvwhWSHHUWEPBK1739-94-50 09:10:008.5[facility] HermannCARDIAC TYVDXVI4600-28-67 00:33:000.07[facility] HermannCARDIAC YTZPWBH0323-57-99 00:33:33094Bzdbwryl HermannCHEM GVJVI2949-49-35 00:33:001.9[facility]annCHEM LKRTN5126-45-82 00:33:003.4[facility] XzrnkfmORPPCJSZDOAP2420-19-44 00:33:009.8[facility] [place] TDGKLZEMWEIN1287-07-21 00:33:00 Test Item Value Reference Range Interpretation Comments B/C Ratio (test code = B/C Ratio) 24 05-05 [facility] ZiwckmbRGLMBLJNDRAQ9451-96-25 00:33:002.3[facility] HermannELECTROLYTES 2019-07-05 00:33:00 Test Item Value Reference Range Interpretation Comments A/G Ratio (test code = A/G Ratio) 1.2 1 0.7-1.6 [facility] JzykmzfZTROPJKAHIMH5969-33-92 00:33:13921Grlqlbkc HermannELECTROLYTES 2019-07-05 00:33:0046[facility] XfwozthYBFOEZREFHHK3512-11-25 00:33:001.90[facility] ZoiyznjTVLXIBKQHVWX1986-58-50 00:33:46621Qduruvoy VkkbzxvQQZGYYKYGVIM8456-35-93 00:33:003.8[facility] JretfcyKARVEGMRIKAL7269-40-98 00:33:92695Ykozzaql Jeremias ZTJJZRZAFLFI0292-18-71 00:33:0032[facility] TmnlvsvFSKGSYVMADSX2613-20-11 00:33:00 5.1[facility] IkooftvHGTZTYKYTJZS8339-80-82 00:33:002.8[facility] AYKEIFYZUVDD3752-72-08 00:33:0021[facility] ZdvpeecGUPCONCSHNSL7397-69-66 00:33:00 23[facility] KahgfghBBIJFRMNUJQL6610-41-21 00:33:39347Qbygqjhr HermannELECTROLYTES 2019-07-05 00:33:001.6[facility] ZlburbwVMJHZJYASWUY4429-24-04 00:33:0033[facility] UbabgjbSLIHLXPPAI8438-40-78 00:33:00 Test Item Value Reference Range Interpretation Comments INR (test code = INR) 1.16 1 0.85-1.17 [facility] ArefvbeVPVRNRHKCJ1968-18-33 00:33:00 Test Item Value Reference Range Interpretation Comments PT (test code = PT) 14.6 s 12.0-14.7 [facility] RmlulpjOMOCYLDQFM7957-89-13 00:33:00 Test Item Value Reference Range Interpretation Comments PTT (test code = PTT) 33.0 s 22.9-35.8 [facility] HqlgrvgBHMTPBWZYP5640-08-69 00:33:0011.0[facility] HermannHEMATOLOGY 2019-07-05 00:33:002.89[facility] VqtpretMFHQXKEYTG5303-39-27 00:33:009.3[facility] RhjzgmiXUVEAUEIUZ3086-47-78 00:33:0027.9[facility] CrilwpeGYJYGGAHFM8418-85-42 00:33:0096.[facility] GyijkmnEGEWNQEZRX5100-81-97 00:33:00 Test Item Value Reference Range Interpretation Comments MCH (test code = MCH) 32.2 pg 27.0-31.0 [facility] QsqpadzQSYDTWQQTT8783-70-10 00:33:0033.3[facility] HermannHEMATOLOGY 2019-07-05 00:33:0016.9[facility] WinilvoMZUWBWXDLR3241-83-19 00:33:57215Cyceiyfd ScjkfjiPLNGUIYVIT8596-56-20 00:33:008.4[facility] AyqgbcoJFKQEGZKUJ3208-32-33 00:33:0066.6[facility] XzvynffGJMYFEOPLH7718-77-04 00:33:0012.6[facility] [place] NSXGUFTQAH5319-90-31 00:33:0017.8[facility] ZatmvyeELVQEHZNPT8279-81-99 00:33:00 2.4[facility] CrmbfylWELYRYXWUV7595-30-44 00:33:000.6[facility] HermannHEMATOLOGY 2019-07-05 00:33:007.4[facility] XeskfpsDTSSJXKCJT5532-12-04 00:33:001.4[facility] OjpmzlzQJTWUDMFNZ4844-65-71 00:33:002.0[facility] IbohgcxJVTZTGQJEO6597-08-22 00:33:000.3[facility] JmrstxcGILLPAWPTN4326-97-13 00:33:000.1[facility] HermannURINE MBMK5959-01-40 23:37:0026[facility] HermannURINE RFZK2267-29-75 23:37:78736.00 [facility] HermannCHEM LQYLE1047-24-77 16:11:20143Cuoewosz HermannCHEM PANEL 2019-07-02 16:11:0024[facility] HermannCHEM OZNQU2173-09-85 16:11:001.31[facility] HermannCHEM OBOSW4067-38-87 16:11:64333Nraxwjdh HermannCHEM TDUAZ3720-63-49 16:11:004.1[facility] HermannCHEM JYMPE4207-37-18 16:11:00149Gchnmksn HermannCHEM IYRGQ6006-27-22 16:11:0031[facility] HermannCHEM NJPUC4100-58-13 16:11:0010.1 [facility]annCHEM MYDZU6299-28-65 16:11:008.2[facility] HermannCHEM PANEL 2019-07-02 16:11:0052[facility] HermannCHEM CIEMA7606-99-17 19:11:0092[facility] HermannCHEM XVHYJ2867-68-28 19:11:0021[facility] HermannCHEM QCXAK9646-50-75 19:11:001.45[facility] HermannCHEM WXSUW3342-48-99 19:11:18666Swiavnmt HermannCHEM LZJMN6596-56-79 19:11:003.6[facility] HermannCHEM EUBSM7369-09-33 19:11:94045 [facility]annCHEM ANZUP7992-52-82 19:11:0030[facility] HermannCHEM PANEL 2019-07-01 19:11:008.1[facility] HermannCHEM PCHKE1563-48-54 19:11:0010.6[facility] HermannCHEM ZIIDC6481-11-65 19:11:0046[facility] HermannCARDIAC KFQFTFS7645-75-06 16:38:65263Hmnguicq HermannCHEM YZXRH1491-93-72 16:38:97027Wcwrincd HermannCHEM ZASOI1248-40-38 16:38:0016[facility] HermannCHEM TSULW5745-65-47 16:38:001.12 [facility]annCHEM CBHZI0144-68-89 16:38:89459Eoscnxuh HermannCHEM PANEL 2019-06-30 16:38:003.9[facility] HermannCHEM KGGBN6841-11-93 16:38:23651Lknqvxve HermannCHEM HSENH6588-79-99 16:38:0031[facility] HermannCHEM QWTAU1669-02-12 16:38:008.1[facility] HermannCHEM SRRHV6701-74-72 16:38:005.0[facility] HermannCHEM GOXMB4722-03-50 16:38:002.6[facility] HermannCHEM YVRZK0149-95-89 16:38:0029 [facility]annCHEM QHMAC3319-10-96 16:38:0011[facility] HermannCHEM PANEL 2019-06-30 16:38:0092[facility] HermannCHEM NJMYX8958-22-60 16:38:001.7[facility] HermannCHEM PMGPF4217-93-30 16:38:008.9[facility] HermannCHEM FRLRA6340-57-61 16:38:00 Test Item Value Reference Range Interpretation Comments B/C Ratio (test code = B/C Ratio) 14 1 6-25 [facility] HermannCHEM IASMO7196-32-15 16:38:002.4[facility] HermannCHEM PANEL 2019-06-30 16:38:00 Test Item Value Reference Range Interpretation Comments A/G Ratio (test code = A/G Ratio) 1.1 1 0.7-1.6 [facility]annCHEM YPZBO1359-09-41 16:38:0063[facility] HermannHEMATOLOGY 2019-06-30 16:38:009.0[facility] AqevgmpMNNDQLQDCR4798-37-59 16:38:002.65[facility] DagsojsIBSKPEEXBQ8626-04-42 16:38:008.5[facility] BruyxzaDNBAISOSXZ0631-52-79 16:38:0024.6[facility] FbpkxdgBYSLDDDAIB4739-52-19 16:38:0092.6[facility] [place] GYLJKUZSOQ8640-78-42 16:38:00 Test Item Value Reference Range Interpretation Comments MCH (test code = MCH) 32.2 pg 27.0-31.0 [facility] WgovzdzSBRCTKMUOZ5191-69-60 16:38:0034.7[facility] HermannHEMATOLOGY 2019-06-30 16:38:0014.8[facility] XdeqezgKPRMSJMIBD0777-60-29 16:38:75441Ssdfxrme NkmuyhlQVQKOYYUSI4552-45-31 16:38:008.5[facility] WjgewepYAWUAFDSSV1161-49-09 18:44:009.6[facility] FikwmkkSNXSICQKXY3845-76-97 18:44:003.10[facility] TKKLUAXSHG0060-65-78 18:44:0010.0[facility] KrzvyrxJLRHSCHGHQ0239-94-58 18:44:00 29.0[facility] IyatuzsEUBUJFTGWV2930-04-87 18:44:0093.5[facility] HermannHEMATOLOGY 2019-06-29 18:44:00 Test Item Value Reference Range Interpretation Comments MCH (test code = MCH) 32.1 pg 27.0-31.0 [facility] PzppasyPOEKDWJHOV0402-08-41 18:44:0034.4[facility] HermannHEMATOLOGY 2019-06-29 18:44:0014.9[facility] TuskiczJBUXZFEKIA5387-06-61 18:44:18694Qqspjvtw JfbugvdKIQBSYLVQW4672-78-94 18:44:008.6[facility] GwhogmxKSLBWXOXNO2488-49-11 18:44:0067.8[facility] GnpwgztLYQILLSGUT6611-55-51 18:44:0014.0[facility] YXLCGHJOUA7479-89-36 18:44:0015.7[facility] PufnplvGOXAVAUBUD9971-31-07 18:44:00 2.2[facility] SpvqvoqSCJAETJCOJ0971-20-41 18:44:000.3[facility] HermannHEMATOLOGY 2019-06-29 18:44:006.5[facility] HayzfamGWXTKOPUPJ1244-68-06 18:44:001.3[facility] MbnziuhLBRSTUZKRB0474-09-45 18:44:001.5[facility] TutieibGWVWTGEAJQ7797-62-60 18:44:000.2[facility] HermannCHEM GPLGO4242-37-22 10:37:002.4[facility] HermannCHEM VPVLV5374-05-13 10:37:001.5[facility] BchjxbfIMKCCCFSLN2086-39-38 10:37:0061.5 [facility] KfusyngALSPOWCFKP8269-25-12 10:37:0018.4[facility] HermannHEMATOLOGY 2019-06-29 10:37:0017.5[facility] TtygewxUPCJLIMCYC2419-37-93 10:37:002.2[facility] BwevihnMCQFPUJJTQ9207-15-54 10:37:000.4[facility] DzrywulHLSSVNOEOV0185-53-51 10:37:005.5[facility] GvpwfzsSJWUARULJJ0430-32-42 10:37:001.7[facility] XEPVIKPJXE4550-64-68 10:37:001.6[facility] NkvxhcwZIFGFAAAJO0614-03-90 10:37:000.2 [facility] QbyedgiGOKPHDOYNO1018-52-49 10:37:009.0[facility] HermannHEMATOLOGY 2019-06-29 10:37:002.54[facility] MqchsqqCAGEYZKFKS1245-12-92 10:37:008.2[facility] FsoqpnvIDCNRVFCYC5566-46-90 10:37:0023.3[facility] PelhkgyINQYMACLOC7813-84-11 10:37:0091.6[facility] IqtixuqETUPKPDZZF3215-42-53 10:37:00 Test Item Value Reference Range Interpretation Comments MCH (test code = MCH) 32.1 pg 27.0-31.0 [facility] NdahvilDHRAPYRYPB3404-12-33 10:37:0035.1[facility] HermannHEMATOLOGY 2019-06-29 10:37:0014.9[facility] JhokucrIGYCDVMAEJ6722-23-99 10:37:97683Ooczwhsk GzcldvvVLFSNVGUIG4962-47-93 10:37:008.0[facility] HermannBLOOD BANK RESULTS 2019-06-28 20:52:00Product available (06/28/19 3:52 PM)[facility]BL[facility] B[facility] IPKUSUD3134-25-85 20:11:00Product available 4(06/28/19 3:11 PM)[facility] XMUABYV9472-05-41 13:27:00Negative (06/28/19 8:27 AM)[facility] RJWAEGJ0818-87-71 13:05:00Product available 5(06/28/19 8:05 AM) [facility]annCHEM OZQXB5242-74-01 10:38:002.0[facility] HermannCHEM PANEL 2019-06-28 10:38:002.6[facility] NcnkmdzZKHDAKBUMF2039-34-41 10:38:0070.8[facility] PplgklhQTRFHLSSYI8575-56-38 10:38:0013.5[facility] LavrkawQGYRZKEQRB2077-70-08 10:38:0015.1[facility] ZqelqymJQAZLRLXAO3297-26-65 10:38:000.5[facility] [place] KQAWZCXKDD4118-04-32 10:38:000.1[facility] LictqirELCTDFBRKV4896-43-84 10:38:009.3 [facility] HgtuwmmKAEMTGZSQZ1277-35-91 10:38:001.8[facility] HermannHEMATOLOGY 2019-06-28 10:38:002.0[facility] WkikevnNWDBKAQABZ5030-05-24 10:38:000.1[facility] HermannCHEM YVYCF2809-92-99 23:14:002.2[facility] HermannCHEM NTHLE2937-31-11 23:14:003.3[facility] HermannCARDIAC IOMSIWV9576-30-89 23:30:000.03[facility] HermannPARATHYROID YKHOFTS6735-33-02 19:47:001.08[facility] HermannPARATHYROID SKBHYSB7731-15-21 19:47:001.10[facility]annBL[facility]OD BANK NFBPFIZ0738-82-20 16:13:00Negative (06/23/19 11:13 AM)[facility]krVKLDQQWTEK6585-46-47 16:13:00 Test Item Value Reference Range Interpretation Comments INR (test code = INR) 1.17 1 0.85-1.17 [facility]andObghpzyFGLPFOBFIB8186-24-40 16:13:00 Test Item Value Reference Range Interpretation Comments PT (test code = PT) 14.7 s 12.0-14.7 [facility]andVvtygjfQGXROREZQM7672-75-75 16:13:00 Test Item Value Reference Range Interpretation Comments PTT (test code = PTT) 30.8 s 22.9-35.8 [facility]ellandXgmxuphUXCCDWKHAT1204-76-75 16:13:000.1[facility]
[2021-01-15 08:45] LABS: Absolute Lymphocytes (CBC) 0.8 K/uL (0.7-4.9); Basophils % 0.7 % (0-1.3); Hematocrit 32.1 % (39.6-49.0); Lymphocytes % 7.9 % (15.3-44.8); MPV 7.7 fL (7.6-11.3); RBC Red Blood Cell Count 3.53 M/uL (4.33-5.43)
[2021-01-15] MEDS ORDERED: ONDANSETRON 4 MG/2 ML VIAL ONE (08:59)
[2021-01-15] MEDS ORDERED: PIPER/TAZO/NS 3.375gm 3.375 GM/100 ML BAG ONE (08:59)
[2021-01-15] MEDS ORDERED: NA CHLORIDE 0.9% 1,000 ML ONE (08:59)
[2021-01-15] MEDS ORDERED: FENTANYL CITR 100 MCG/2 ML ONE ×2 (08:59→12:35)
[2021-01-15 09:11] LABS: Albumin 2.6 g/dL (3.4-5.0); Bilirubin Direct 0.5 mg/dL (0-0.2); Bilirubin Total 0.9 mg/dL (0.2-1.0); Magnesium 1.8 mg/dL (1.8-2.4); Potassium 3.4 mmol/L (3.5-5.1); Protein, Total 6.7 g/dL (6.4-8.2); Protime INR 1.46; Troponin (Emerg Dept Use Only) 0.02 ng/mL (0.0-0.045)
[2021-01-15] MEDS ORDERED: VANCOMYCIN/NS 1 gm 1 GM/250 ML BAG IVPB ONE (10:00)
--- NOTE | 2021-01-15 11:03 | ER ---
Nurse's Notes [facility] Name: Mahnaz Baptiste Age: 81 yrs Sex: Male : 1940 Arrival Date: 01/15/2021 Time: 07:29 Bed 16 Private MD: Diagnosis: Pressure ulcer of buttock;Pressure ulcer-BILATERAL CALCANEOUS, CELLULITIS;Unspecified open wound, left lower leg;Unspecified open wound, right lower leg;Atrial fibrillation and flutter;Acute kidney failure-ON CHRONIC Presentation: 01/15 07:48 Chief complaint: Spouse and/or significant other states: has chronic wound to both legs, is being treated at [facility], had to be admitted to [facility] , home health has been seeing him but it's getting worse, also now has bruising and skin cracking to his bottom that started 3-4 weeks ago , pt is here because his feet are more swollen and having more pain. Coronavirus screen: At this time, the client does not indicate any symptoms associated with coronavirus-19. Ebola Screen: Patient negative for fever greater than or equal to 101.5 degrees Fahrenheit, and additional compatible Ebola Virus Disease symptoms Patient denies exposure to infectious person. Patient denies travel to an Ebola-affected area in the 21 days before illness onset. No symptoms or risks identified at this time. Risk Assessment: Do you want to hurt yourself or someone else? Patient reports no desire to harm self or others. Onset of symptoms was December 2020. 07:48 Method Of Arrival: Wheelchair iw 07:48 Acuity: ZIA 2 iw 13:47 Initial Sepsis Screen: Does the patient meet any 2 criteria? No. Patient's initial jd3 sepsis screen is negative. Does the patient have a suspected source of infection? Yes: Skin breakdown/wound. Historical: - Allergies: 07:52 Morphine; iw - Home Meds: 07:55 alprazolam 1 mg Oral tab 1 tab 3 times per day for prn , prn [Active]; Eliquis 2.5 mg iw oral tab 1 tab 2 times per day [Active]; metoprolol tartrate 25 mg Oral tab 0.5 tab once daily [Active]; gabapentin 600 mg Oral tab 1 tab 3 times per day [Active]; Humalog Mix 75-25 100 unit/mL (75-25) Sub-Q susp [Active]; oxycodone 80 mg Oral TR12 1 tab three times a day [Active]; ProAir HFA 90 mcg/actuation inhalation HFAA 2 puffs every 6 hours [Active]; simvastatin 20 mg Oral tab 1 tab once daily [Active]; trazodone 50 mg Oral tab nightly [Active]; - PMHx: 07:52 Chronic pain; Hypertension; Myocardial infarction; neuropathy; iw - PSHx: 07:52 Knee surgery; Fentanyl Pain Pump; AMPUTATED FINGER; Left leg bypass; Heart stents; BACK iw SURGERY x 5; - Immunization history:: Adult Immunizations not up to date. - Social history:: Smoking status: Patient reports the use of cigarette tobacco products, smokes one pack cigarettes per day. - Family history:: not pertinent. Screenin:47 Abuse screen: Denies threats or abuse. Nutritional screening: No deficits noted. jd3 Tuberculosis screening: No symptoms or risk factors identified. Fall Risk IV access (20 points). Ambulatory Aid- Crutches/Cane/Walker (15 pts). Gait- Impaired (20 pts.). Mental Status- Oriented to own ability (0 pts). Total [place] Fall Scale indicates High Risk Score (45 or more points). Fall prevention measures have been instituted. Side Rails Up X 2 Placed Close to Nursing Station Frequent Obs/Assessments Occuring Family Present and informed to notify staff if the need to leave the bedside. Assessment: 08:40 General: Appears uncomfortable, Behavior is calm, cooperative, appropriate for age. jd3 Pain: Complains of pain in coccyx, right leg and left leg Quality of pain is described as sharp, tender. Neuro: Level of Consciousness is awake, alert, obeys commands, Oriented to person, place, time, situation. Cardiovascular: Denies chest pain, Capillary refill < 3 seconds Patient's skin is warm and dry. Rhythm is irregular. Respiratory: Airway is patent Respiratory effort is even, unlabored, Respiratory pattern is regular, symmetrical, Denies cough, shortness of breath. GI: No signs and/or symptoms were reported involving the gastrointestinal system. : No signs and/or symptoms were reported regarding the genitourinary system. EENT: No signs and/or symptoms were reported regarding the EENT system. Derm: Skin is intact, Skin is dry, Skin is normal, Skin temperature is warm Wound noted coccyx, right foot, left foot, right leg and left leg Wound is open, red. Musculoskeletal: Range of motion: limited in left leg and right leg. 09:17 Reassessment: Patient and/or family updated on plan of care and expected duration. Pain jd3 level reassessed. Patient is alert, oriented x 3, equal unlabored respirations, skin warm/dry/pink. pt reporting pain medication helping Patient states feeling better. 10:47 Reassessment: Patient and/or family updated on plan of care and expected duration. Pain jd3 level reassessed. Patient is alert, oriented x 3, equal unlabored respirations, skin warm/dry/pink. 13:44 Reassessment: Patient and/or family updated on plan of care and expected duration. Pain jd3 level reassessed. Patient is alert, oriented x 3, equal unlabored respirations, skin warm/dry/pink. awaiting admission. Vital Signs: 07:48 BP 99 / 70; Pulse 104; Resp 16; Temp 97.8; Pulse Ox 95% on R/A; Weight 72.57 kg; Height iw 5 ft. 8 in. (172.72 cm); Pain 10/10; 09:17 BP 115 / 64; Pulse 110; Resp 16 S; Pulse Ox 96% on R/A; jd3 10:47 BP 102 / 57; Pulse 65; Resp 17 S; Pulse Ox 97% on R/A; jd3 13:11 BP 111 / 53; Pulse 61; Resp 16 S; Pulse Ox 96% on R/A; jd3 13:44 BP 126 / 67; Pulse 64; Resp 16 S; Pulse Ox 97% on R/A; jd3 07:48 Body Mass Index 24.33 (72.57 kg, 172.72 cm) iw ED Course: 07:29 Patient arrived in ED. am2 07:50 Triage completed. iw 07:52 Arm band placed on. iw 08:05 Humberto Ruano MD is Attending Physician. stephon 08:37 Jacques Morocho, KISHOR is Primary Nurse. jd3 08:45 Inserted saline lock: 20 gauge in left antecubital area, using aseptic technique. Blood jd3 collected. 09:35 XRAY Chest (1 view) In Process Unspecified. EDMS 10:58 Zion Guido DO is Hospitalizing Provider. [place] 13:47 Patient has correct armband on for positive identification. Bed in low position. Call j light in reach. Side rails up X2. Adult w/ patient. manager monitoring on. Pulse ox on. NIBP on. 13:47 No provider procedures requiring assistance completed. jd3 13:48 Patient admitted, IV remains in place. jd3 Administered Medications: 08:55 Drug: NS 0.9% 1000 ml Route: IV; Rate: 125 ml/hr; Site: left antecubital; jd3 14:25 Follow up: Response: No adverse reaction; IV Status: Infusion continued upon admission jd3 08:55 Drug: Zosyn 3.375 grams Route: IVPB; Infused Over: 60 mins; Site: left antecubital; jd3 09:55 Follow up: Response: No adverse reaction; IV Status: Completed infusion jd3 08:55 Drug: fentaNYL (PF) 50 mcg Route: IVP; Site: left antecubital; jd3 09:55 Follow up: Response: No adverse reaction; RASS: Alert and Calm (0) jd3 08:55 Drug: Zofran (Ondansetron) 4 mg Route: IVP; Site: left antecubital; jd3 09:50 Follow up: Response: No adverse reaction jd3 10:13 Drug: vancoMYCIN 1 grams Route: IVPB; Infused Over: 2 hrs; Site: left antecubital; jd3 12:10 Follow up: Response: No adverse reaction; IV Status: Completed infusion jd3 12:28 Drug: Tetanus-Diphtheria Toxoid Adult 0.5 ml {Hold Worker: [employer]. Exp: jd3 04/16/2022. Lot #: [id number]. } Route: IM; Site: left deltoid; 13:20 Follow up: Response: No adverse reaction jd3 12:28 Drug: Pepcid 20 mg Route: IVP; Site: left antecubital; jd3 13:20 Follow up: Response: No adverse reaction jd3 12:29 Drug: fentaNYL (PF) 50 mcg Route: IVP; Site: left antecubital; jd3 13:25 Follow up: Response: No adverse reaction; RASS: Alert and Calm (0) jd3 Outcome: 11:03 Decision to Hospitalize by Provider. stephon 14:10 Admitted to Med/surg accompanied by syed, via stretcher, room 206, with chart, Report jd3 called to Puneet IVERSON 14:10 Condition: stable 14:10 Instructed on the need for admit, Demonstrated understanding of instructions. 14:17 Patient left the ED. eb Signatures: Dispatcher [employer] Humberto Peterson MD MD cha Williams, Irene RN RN iw Poppy Li Jonathon, RN RN jd3 Botello, Elizabeth eb Corrections: (The following items were deleted from the chart) 07:51 07:48 Chief complaint: Spouse and/or significant other states: has chronic wound to iw both legs, is being treated at wound healing, had to be admitted to [facility] , home health has been seeing him but it's getting worse, also now has bruising and skin cracking to his bottom that started 3-4 weeks ago iw 07:51 07:48 BP 80 / 58; Pulse 104bpm; Resp 16bpm; Pulse Ox 95% RA; Temp 97.8F; 72.57 kg; iw Height 5 ft. 8 in.; BMI: 24.3; Pain 10/10; iw 13:47 09:17 Reassessment: Patient and/or family updated on plan of care and expected jd3 duration. Pain level reassessed. Patient is alert, oriented x 3, equal unlabored respirations, skin warm/dry/pink. Patient states feeling better. jd3
--- NOTE | 2021-01-15 11:03 | EDPHYS ---
Physician Documentation [facility] Name: Mahnaz Baptiste Age: 81 yrs Sex: Male : 1940 Arrival Date: 01/15/2021 Time: 07:29 Bed 16 Private MD: ED Physician Humberto Ruano HPI: 01/15 10:52 This 81 yrs old Male presents to ER via Wheelchair with complaints of Skin stephon Sore(s), Leg Pain, Feet Swelling. 10:52 The patient presents with decreased range of motion, pain, swelling, tenderness. The stephon complaints affect the right foot, left foot, right leg and left leg. Context: The problem was sustained at home, resulted from a penetrating injury, a repetitive motion, PRESSURE. Onset: The symptoms/episode began/occurred 2 week(s) ago. Modifying factors: The symptoms are alleviated by elevating leg, remaining still, the symptoms are aggravated by movement, weight bearing. Associated signs and symptoms: The patient has no apparent associated signs or symptoms. Treatment prior to arrival includes: cate wrap, elevation of the extremity. Severity of symptoms: At their worst the symptoms were moderate, in the emergency department the symptoms are unchanged. Historical: - Allergies: 07:52 Morphine; iw - Home Meds: 07:55 alprazolam 1 mg Oral tab 1 tab 3 times per day for prn , prn [Active]; Eliquis 2.5 mg iw oral tab 1 tab 2 times per day [Active]; metoprolol tartrate 25 mg Oral tab 0.5 tab once daily [Active]; gabapentin 600 mg Oral tab 1 tab 3 times per day [Active]; Humalog Mix 75-25 100 unit/mL (75-25) Sub-Q susp [Active]; oxycodone 80 mg Oral TR12 1 tab three times a day [Active]; ProAir HFA 90 mcg/actuation inhalation HFAA 2 puffs every 6 hours [Active]; simvastatin 20 mg Oral tab 1 tab once daily [Active]; trazodone 50 mg Oral tab nightly [Active]; - PMHx: 07:52 Chronic pain; Hypertension; Myocardial infarction; neuropathy; iw - PSHx: 07:52 Knee surgery; Fentanyl Pain Pump; AMPUTATED FINGER; Left leg bypass; Heart stents; BACK iw SURGERY x 5; - Immunization history:: Adult Immunizations not up to date. - Social history:: Smoking status: Patient reports the use of cigarette tobacco products, smokes one pack cigarettes per day. - Family history:: not pertinent. ROS: 10:52 Constitutional: Negative for fever, chills, and weight loss, Eyes: Negative for injury, stephon pain, redness, and discharge, ENT: Negative for injury, pain, and discharge, Neck: Negative for injury, pain, and swelling, Cardiovascular: Negative for chest pain, palpitations, and edema, Respiratory: Negative for shortness of breath, cough, wheezing, and pleuritic chest pain, Abdomen/GI: Negative for abdominal pain, nausea, vomiting, diarrhea, and constipation, Back: Negative for injury and pain, : Negative for injury, bleeding, discharge, and swelling, Neuro: Negative for headache, weakness, numbness, tingling, and seizure, Psych: Negative for depression, anxiety, suicide ideation, homicidal ideation, and hallucinations, Allergy/Immunology: Negative for hives, rash, and allergies, Endocrine: Negative for neck swelling, polydipsia, polyuria, polyphagia, and marked weight changes, Hematologic/Lymphatic: Negative for swollen nodes, abnormal bleeding, and unusual bruising. 10:52 MS/extremity: Positive for decreased range of motion, pain, swelling, tenderness, warmth, of the right foot, left foot, right leg and left leg. Exam: 10:52 Constitutional: This is a well developed, well nourished patient who is awake, alert, stephon and in no acute distress. Head/Face: Normocephalic, atraumatic. Eyes: Pupils equal round and reactive to light, extra-ocular motions intact. Lids and lashes normal. Conjunctiva and sclera are non-icteric and not injected. Cornea within normal limits. Periorbital areas with no swelling, redness, or edema. ENT: Nares patent. No nasal discharge, no septal abnormalities noted. Tympanic membranes are normal and external auditory canals are clear. Oropharynx with no redness, swelling, or masses, exudates, or evidence of obstruction, uvula midline. Mucous membranes moist. Neck: Trachea midline, no thyromegaly or masses palpated, and no cervical lymphadenopathy. Supple, full range of motion without nuchal rigidity, or vertebral point tenderness. No Meningismus. Chest/axilla: Normal chest wall appearance and motion. Nontender with no deformity. No lesions are appreciated. Cardiovascular: Regular rate and rhythm with a normal S1 and S2. No gallops, murmurs, or rubs. Normal PMI, no JVD. No pulse deficits. Respiratory: Lungs have equal breath sounds bilaterally, clear to auscultation and percussion. No rales, rhonchi or wheezes noted. No increased work of breathing, no retractions or nasal flaring. Abdomen/GI: Soft, non-tender, with normal bowel sounds. No distension or tympany. No guarding or rebound. No evidence of tenderness throughout. Back: No spinal tenderness. No costovertebral tenderness. Full range of motion. Male : Normal genitalia with no discharge or lesions. Neuro: Awake and alert, GCS 15, oriented to person, place, time, and situation. Cranial nerves II-XII grossly intact. Motor strength 5/5 in all extremities. Sensory grossly intact. Cerebellar exam normal. Normal gait. Psych: Awake, alert, with orientation to person, place and time. Behavior, mood, and affect are within normal limits. 10:52 Skin: cellulitis, that is moderate, induration, that is moderate is noted, located on the right foot, lateral side of left heel, medial aspect of left heel and heel of left foot. 11:06 ECG was reviewed by the Attending Physician. [facility] Vital Signs: 07:48 BP 99 / 70; Pulse 104; Resp 16; Temp 97.8; Pulse Ox 95% on R/A; Weight 72.57 kg; Height iw 5 ft. 8 in. (172.72 cm); Pain 10/10; 09:17 BP 115 / 64; Pulse 110; Resp 16 S; Pulse Ox 96% on R/A; jd3 10:47 BP 102 / 57; Pulse 65; Resp 17 S; Pulse Ox 97% on R/A; jd3 13:11 BP 111 / 53; Pulse 61; Resp 16 S; Pulse Ox 96% on R/A; jd3 13:44 BP 126 / 67; Pulse 64; Resp 16 S; Pulse Ox 97% on R/A; jd3 07:48 Body Mass Index 24.33 (72.57 kg, 172.72 cm) iw MDM: 08:08 Patient medically screened. [facility] 11:03 Differential diagnosis: contusion, abrasion, tendonitis. Data reviewed: vital signs, [facility] nurses notes, lab test result(s), EKG, radiologic studies, doppler, plain films. Data interpreted: equipment monitor phototypesetting: rate is 65 beats/min, rhythm is regular, Pulse oximetry: on room air is 97 %. Test interpretation: by ED physician or midlevel provider: ECG, plain radiologic studies. Counseling: I had a detailed discussion with the patient and/or guardian regarding: the historical points, exam findings, and any diagnostic results supporting the discharge/admit diagnosis, lab results, radiology results, the need for further work-up and treatment in the hospital. 01/15 08:07 Order name: Basic Metabolic Panel [facility] 01/15 08:07 Order name: CBC with Diff [facility] 01/15 08:07 Order name: LFT's; Complete Time: 10:51 [facility] 01/15 08:07 Order name: Magnesium; Complete Time: 10:51 [facility] 01/15 08:07 Order name: NT PRO-BNP; Complete Time: 10:51 [facility] 01/15 08:07 Order name: PT-INR; Complete Time: 10:51 [facility] 01/15 08:07 Order name: Troponin (emerg Dept Use Only); Complete Time: 10:51 [facility] 01/15 08:07 Order name: Blood Culture Adult (2) [facility] 01/15 08:07 Order name: Lactate; Complete Time: 10:51 [facility] 01/15 08:08 Order name: Basic Metabolic Panel; Complete Time: 10:51 [facility] 01/15 08:08 Order name: CBC with Automated Diff; Complete Time: 10:51 [facility] 01/15 11:05 Order name: COVID-19 : Document "Date of Symptom Onset" if Symptomatic. [facility] 01/15 11:06 Order name: CORONAVIRUS [facility] 01/15 12:55 Order name: SARS-COV-2 RT PCR [facility] 01/15 08:07 Order name: XRAY Chest (1 view) [facility] 01/15 08:07 Order name: EKG; Complete Time: 08:08 [facility] 01/15 08:07 Order name: Cardiac monitoring; Complete Time: 09:17 [facility] 01/15 08:07 Order name: EKG - Nurse/Tech; Complete Time: 09:16 [facility] 01/15 08:07 Order name: IV Saline Lock; Complete Time: 08:38 [facility] 01/15 10:51 Order name: US LE Arterial Bilateral [facility] 01/15 12:28 Order name: [facility] 01/15 13:00 Order name: Lactate Sepsis 2 HR Follow-up [facility] 01/15 08:07 Order name: Labs collected and sent; Complete Time: 08:38 [facility] 01/15 08:07 Order name: O2 Per Protocol; Complete Time: 08:38 [facility] 01/15 08:07 Order name: O2 Sat Monitoring; Complete Time: 08:38 [facility] EC:06 Rate is 127 beats/min. Rhythm is irregularly irregular. QRS Bynum is Normal. FL interval stephon is normal. QRS interval is normal. QT interval is normal. No Q waves. T waves are Normal. No ST changes noted. Clinical impression: Atrial Fibrillation and No evidence of ischemia. Interpreted by me. Reviewed by me. Administered Medications: 08:55 Drug: NS 0.9% 1000 ml Route: IV; Rate: 125 ml/hr; Site: left antecubital; jd3 14:25 Follow up: Response: No adverse reaction; IV Status: Infusion continued upon admission jd3 08:55 Drug: Zosyn 3.375 grams Route: IVPB; Infused Over: 60 mins; Site: left antecubital; jd3 09:55 Follow up: Response: No adverse reaction; IV Status: Completed infusion jd3 08:55 Drug: fentaNYL (PF) 50 mcg Route: IVP; Site: left antecubital; jd3 09:55 Follow up: Response: No adverse reaction; RASS: Alert and Calm (0) jd3 08:55 Drug: Zofran (Ondansetron) 4 mg Route: IVP; Site: left antecubital; jd3 09:50 Follow up: Response: No adverse reaction jd3 10:13 Drug: vancoMYCIN 1 grams Route: IVPB; Infused Over: 2 hrs; Site: left antecubital; jd3 12:10 Follow up: Response: No adverse reaction; IV Status: Completed infusion jd3 12:28 Drug: Tetanus-Diphtheria Toxoid Adult 0.5 ml {Billing Auditor: [employer]. Exp: jd3 04/16/2022. Lot #: [id number]. } Route: IM; Site: left deltoid; 13:20 Follow up: Response: No adverse reaction jd3 12:28 Drug: Pepcid 20 mg Route: IVP; Site: left antecubital; jd3 13:20 Follow up: Response: No adverse reaction j 12:29 Drug: fentaNYL (PF) 50 mcg Route: IVP; Site: left antecubital; jd3 13:25 Follow up: Response: No adverse reaction; RASS: Alert and Calm (0) jd3 Disposition: 01/15/21 11:03 Hospitalization ordered by Zion Guido for Inpatient Admission. Preliminary diagnosis are Pressure ulcer of buttock, Pressure ulcer - BILATERAL CALCANEOUS, CELLULITIS, Unspecified open wound, left lower leg, Unspecified open wound, right lower leg, Atrial fibrillation and flutter, Acute kidney failure - ON CHRONIC. - Bed requested for Telemetry/MedSurg (Inpatient). - Status is Inpatient Admission. eb - Condition is Fair. - Problem is new. - Symptoms have improved. Signatures: Dispatcher [employer] EDHumberto Cardona MD MD cha Williams, Irene, RN RN iw Davies, Jonathon, RN RN jd3 Botello, Elizabeth eb Corrections: (The following items were deleted from the chart) 11:06 11:03 Hospitalization Ordered by Zion Guido DO for Inpatient Admission. Preliminary stephon diagnosis is Pressure ulcer of buttock; Pressure ulcer - BILATERAL CALCANEOUS, CELLULITIS; Unspecified open wound, left lower leg; Unspecified open wound, right lower leg. Bed requested for Telemetry/MedSurg (Inpatient). Status is Inpatient Admission. Condition is Fair. Problem is new. Symptoms have improved. stephon 13:00 11:06 01/15/2021 11:03 Hospitalization Ordered by Zion Guido DO for Inpatient eb Admission. Preliminary diagnosis is Pressure ulcer of buttock; Pressure ulcer - BILATERAL CALCANEOUS, CELLULITIS; Unspecified open wound, left lower leg; Unspecified open wound, right lower leg; Atrial fibrillation and flutter; Acute kidney failure - ON CHRONIC. Bed requested for Telemetry/MedSurg (Inpatient). Status is Inpatient Admission. Condition is Fair. Problem is new. Symptoms have improved. stephon 14:17 13:00 01/15/2021 11:03 Hospitalization Ordered by Zion Guido DO for Inpatient eb Admission. Preliminary diagnosis is Pressure ulcer of buttock; Pressure ulcer - BILATERAL CALCANEOUS, CELLULITIS; Unspecified open wound, left lower leg; Unspecified open wound, right lower leg; Atrial fibrillation and flutter; Acute kidney failure - ON CHRONIC. Bed requested for Telemetry/MedSurg (Inpatient). Status is Inpatient Admission. Condition is Fair. Problem is new. Symptoms have improved. eb
--- NOTE | 2021-01-15 11:38 | RAD REPORT ---
EXAM DESCRIPTION: RAD - Chest Single View - 01/15/2021 9:29 am CLINICAL HISTORY: COUGH Chest pain. COMPARISON: Chest Single View dated 10/31/2020; Chest Single View dated 10/05/2020; Chest Pa And Lat (2 Views) dated 09/27/2020; Chest Single View dated 11/23/2019 FINDINGS: Portable technique limits examination quality. 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 No focal infiltrate detecte d. The heart is normal in size. No displaced fractures.Mild aortic atherosclerosis.
[2021-01-15] MEDS ORDERED: FAMOTIDINE 20 MG/2 ML VIAL IV ONE (12:10)
[2021-01-15] MEDS ORDERED: TETANUS & DIPHTHERIA TOX,ADULT 0.5 ML VIAL ONE (12:10)
--- NOTE | 2021-01-15 12:28 | RAD REPORT ---
EXAM DESCRIPTION: US - Lower Extremity Arterial Bilat - 01/15/2021 12:15 pm CLINICAL HISTORY: Pain;Swelling COMPARISON: Lower Ext Angio dated 10/11/2020; Lower Extremity Artery Uni Ltd dated 11/20/2019 TECHNIQUE: Bilateral lower extremity arterial Doppler examination was performed with sharad lakhani FINDINGS: Right lower extremity arterial system demonstrates diffusely monophasic flow with blunted amplitudes. Inflow stenosis is suspected on the right. Left lower extremity arterial system demonstrates a patent left sided graft at the level left common femoral artery. Diffusely monophasic flow is seen with near occlusion of the mid aspect of the left s uperficial femoral artery seen. IMPRESSION: Advanced bilateral lower extremity peripheral vascular disease is present. Near occlusion noted involving the mid left superficial femoral artery.
--- NOTE | 2021-01-15 14:15 | P.HP ---
Certification for Inpatient Patient admitted to: Inpatient With expected LOS: >2 Midnights Patient will require the following post-hospital care: Other (LTAC) Practitioner: I am a practitioner with admitting privileges, knowledge of patient current condition, hospital course, and medical plan of care. Services: Services provided to patient in accordance with Admission requirements found in Title 42 Section 412.3 of the Code of Federal Regulations Patient History Date of Service: 01/15/21 Primary Care Provider: Dr. Merrill Reason for admission: Pain to chronic wounds to the lower extremity History of Present Illness: 81-year-old male with history of insulin-dependent diabetes type 2, hypertension, CAD, peripheral vascular disease, GERD, chronic pain and 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 Patient presented with worsening pain to the lower extremities bilateral. Patient has chronic open wounds/ulcers to the lower extremities bilateral. These are mainly to the lateral aspect of the shins bilaterally. He also has pressure ulcers to the heels. Erythema noted to the heels. There is also a pressure ulcer noted to the buttocks region. It is been difficult to treat at home. Patient reports that he was at [facility] in then transfer to [place] over 3 weeks ago due to the wounds. He had been getting wound care primarily at home. reports treatment has been getting more difficult. Increasing pain noted. No fever noted. He denies any chest pain, shortness of breath. Patient came to the ER for further evaluation. In the ER patient was evaluated. White count 10.10. Hemoglobin 10.5. Platelet count 255. Sodium 136, potassium 3.4. BN of 25, creatinine 1.98 with a GFR 33. Glucose 169. Lactic acid 2.1, BMP 4500. Troponin 0.02. Her chair Doppler of the lower extremities showed severe peripheral vascular disease with near occlusion of the mid left superior femoral artery. Acute on chronic changes to the lower extremity wounds/ulcers noted. Patient admitted for further evaluation and treatment. The patient and family do not want him to go back to [facility]. Patient started on IV antibiotic therapy. Case discussed with surgery who was been consulted. Allergies morphine Allergy (Verified 10/05/20 13:36) Shortness of breath Home medications list reviewed: Yes Home Medications: Alprazolam [Xanax] 1 mg PO TID PRN 10/05/20 Gabapentin 600 mg PO BEDTIME 10/05/20 Metoclopramide [Reglan*] 10 mg PO BID PRN 10/05/20 Metoprolol Succinate [Toprol Xl*] 12.5 mg PO DAILY 10/05/20 Ondansetron [Zuplenz] 8 mg PO Q4H PRN 10/05/20 Oxycodone HCl [Oxycontin] 80 mg PO TID PRN 10/05/20 Simvastatin 20 mg PO BEDTIME 10/05/20 Trazodone HCl 100 mg PO BEDTIME 10/05/20 Pantoprazole [Protonix Tab*] 40 mg PO BID 30 Days #60 tab 10/06/20 - Past Medical/Surgical History Diabetic: Yes -: Chronic pain -: HTN -: CAD with prior stents -: Diabetes mellitus type 2 insulin-dependent -: Peripheral vascular disease -: Hyperlipidemia -: GERD -: Chronic ulcers, 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 Lives at home. - Family History Father -: Heart disease - Social History Smoking Status: Unknown if ever smoked Alcohol use: No CD- Drugs: No Caffeine use: Yes Place of Residence: Home Review of Systems General: Weakness, Malaise, As per HPI Eyes: Unremarkable ENT: Unremarkable Respiratory: Unremarkable Cardiovascular: Unremarkable Gastrointestinal: Unremarkable Genitourinary: Unremarkable Musculoskeletal: As per HPI Integumentary: As per HPI Neurological: As per HPI Lymphatics: Unremarkable Physical Examination - Physical Exam General: Alert, In no apparent distress, Oriented x3, Cooperative HEENT: Atraumatic, Mucous membr. moist/pink Neck: Supple Respiratory: Clear to auscultation bilaterally, Normal air movement Cardiovascular: Normal pulses, Regular rate/rhythm Gastrointestinal: Normal bowel sounds, Soft and benign, Non-distended, No tenderness, No masses, No rebound, No guarding Integumentary: Other (Acute on chronic multiple ulcers/wounds to the lower extremity bilateral. Large open ulcers to the lateral chavez region. Some measur ing up to 3-4 inches in length and about 2 inches in diameter. Pressure ulcers noted bilateral to the heels. Pressure ulcer noted to the buttocks region. ChronicPVD) Neurological: Normal speech, Normal strength at 5/5 x4 extr, Normal tone, Normal affect, Other (Patient with difficulty in moving due to pain.) - Studies Laboratory Data (last 24 hrs) 01/15/21 08:32: PT 16.9 H, INR 1.46 01/15/21 08:32: WBC 10.10, Hgb 10.5 L, Hct 32.1 L, Plt Count 255 01/15/21 08:32: Sodium 136, Potassium 3.4 L, BUN 25 H, Creatinine 1.98 H, Glucose 169 H, Magnesium 1.8 D, Total Bilirubin 0.9, AST 17, ALT 13, Alkaline Phosphatase 94 Assessment and Plan - Plan Impression: Acute on chronic multiple wounds/ulcers to the lateral regions of both lower extremities complicated with bilateral pressure ulcers, buttock pressure ulcer and severe PVD-Prior CV interventions Acute on chronic renal disease stage III Diabetes mellitus type 2 insulin-dependent Hypertension Hyperlipidemia Chronic pain Anxiety GERD Plan: Acute on chronic multiple wounds/ulcers to the lateral regions of both lower extremities complicated with bilateral pressure ulcers, buttock pressure ulcer and severe PVD-Prior CV interventions: Patient will be admitted for further evaluation and treatment. Family and patient do not want go back to [facility]. Patient with CV surgery history. Obtain records from [facility] to see what was done in the past. Case discussed at length with surgery. Will continue with IV antibiotic therapy-vancomycin and cefepime. Cultures to be obtained. Will also consult infectious disease to further evaluate and treat. Surgery plans to debrided multiple wounds tomorrow. Patient would benefit with long-term acute care facility placement to continue aggressive wound care, IV antibiotic therapy, and rehab. Will consult criminal justice social worker to help with this. This was discussed in detail with the family. Family understands. If long-term acute care facility is not an option then will need to consider skilled placement as it is difficult to take care the patient at home. If no options available then the patient will likely need to go home at discharge with [facility]. Other alternative are amputations of the lower extremities as these wounds are likely not heal completely. Will discuss with criminal justice social worker to further address. Continue IV fluids. Continue DVT prophylaxis. Await recommendations by infectious disease. Patient will need aggressive wound care and likely plastic surgery in the future with the help of CV surgery. Likely no future interventions by CV surgery as this would have been done at [facility]. Will need to obtain more information from [facility]. May need to Re discuss options of final care and disposition after debridement. I will turn the service over to the hospitalist team tomorrow. I will go plan of care with him. Acute on chronic renal disease stage III: Will consult Nephrology to further evaluate. Continue IV fluids for now. Diabetes mellitus type 2 insulin-dependent: Will start Lantus. Accu-Cheks in place. Will monitor and adjust appropriately. Will check A1c. Hypertension: Restart metoprolol. Will monitor adjust appropriately. Hyperlipidemia: Restart Zocor. Chronic pain: Will provide medication for pain including tramadol and hydrocodone. Will also continue with gabapentin. Anxiety: Continue with medication as needed. Will need pain management as an outpatient. GERD: Continue with Protonix. Discharge Plan: LTAC Plan to discharge in: 48 Hours - Advance Directives Does patient have a Living Will: Yes Does patient have a Durable POA for Healthcare: Yes - Code Status/Comfort Care Code Status Assessed: Yes (Patient is full code) Time Spent Managing Pts Care (In Minutes): 55
[2021-01-15] MEDS: GABAPENTIN 300 MG CAP PO SCH ×2 (14:31→21:03)
[2021-01-15] MEDS: NA CHLORIDE 0.9% 1,000 ML IV SCH (14:31)
[2021-01-15] MEDS ORDERED: ONDANSETRON 4 MG/2 ML VIAL IV PRN (14:31)
[2021-01-15] MEDS ORDERED: GLUCAGON 1 MG/VIAL IM PRN (14:31)
[2021-01-15] MEDS ORDERED: HYDROCODONE/APAP 7.5/325 MG TAB PO PRN (14:31)
[2021-01-15] MEDS ORDERED: TRAZODONE 50 MG TABLET PO PRN (14:31)
[2021-01-15 14:58] VITALS: BMI 25.0
[2021-01-15] MEDS: CEFEPIME/SWI 1gm 10 ML IVP SCH ×2 (15:13→21:03)
[2021-01-15] MEDS: ENOXAPARIN 40 MG/0.4 ML SQ SCH (15:13)
[2021-01-15] MEDS ORDERED: HYDROCODONE/APAP 10/325 TAB PO PRN (16:16)
[2021-01-15] MEDS ORDERED: OXYCODONE 80 MG PO PRN (17:50)
[2021-01-15] MEDS: PANTOPRAZOLE 40MG TABLET PO SCH (17:57)
[2021-01-15] MEDS: INSULIN -REGULAR HUMAN 50 UNIT/0.5 ML ML SQ SCH ×2 (17:57→21:00)
[2021-01-15] MEDS: VANCOMYCIN 1.25 GM in NA CHLORIDE 0.9% 250 ML IVPB SCH (17:57)
--- NOTE | 2021-01-15 18:16 | P.CNS ---
Primary Care Provider: Dr. Merrill Chief Complaint: Pain to chronic wounds to the lower extremity History of Present Illness: ERROR DOCUMENT Allergies morphine Allergy (Verified 10/05/20 13:36) Shortness of breath Home Medications: Alprazolam [Xanax] 1 mg PO TID PRN 10/05/20 Gabapentin 600 mg PO BEDTIME 10/05/20 Metoclopramide [Reglan*] 10 mg PO BID PRN 10/05/20 Metoprolol Succinate [Toprol Xl*] 12.5 mg PO DAILY 10/05/20 Ondansetron [Zuplenz] 8 mg PO Q4H PRN 10/05/20 Oxycodone HCl [Oxycontin] 80 mg PO TID PRN 10/05/20 Simvastatin 20 mg PO BEDTIME 10/05/20 Trazodone HCl 100 mg PO BEDTIME 10/05/20 Pantoprazole [Protonix Tab*] 40 mg PO BID 30 Days #60 tab 10/06/20 - Past Medical/Surgical History Diabetic: Yes -: Chronic pain -: HTN -: CAD with prior stents -: Diabetes mellitus type 2 insulin-dependent -: Peripheral vascular disease -: Hyperlipidemia -: GERD -: Chronic ulcers, 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 Lives at home. - Family History Father Medical History: Heart disease - Social History Smoking Status: Current every day smoker Alcohol use: No CD- Drugs: No Caffeine use: Yes Place of Residence: Home Physical Examination Temp Pulse Resp BP Pulse Ox 97.8 F 64 16 126/67 01/15/21 07:48 01/15/21 13:44 01/15/21 13:44 01/15/21 13:44 Laboratory Data (last 24 hrs) 01/15/21 08:32: PT 16.9 H, INR 1.46 01/15/21 08:32: WBC 10.10, Hgb 10.5 L, Hct 32.1 L, Plt Count 255 01/15/21 08:32: Sodium 136, Potassium 3.4 L, BUN 25 H, Creatinine 1.98 H, Glucose 169 H, Magnesium 1.8 D, Total Bilirubin 0.9, AST 17, ALT 13, Alkaline Phosphatase 94
[2021-01-15] MEDS ORDERED: CEFEPIME 1 GM/VIAL IV SCH (21:00)
[2021-01-15] MEDS ORDERED: OXYCODONE 80 MG PO SCH (21:00)
[2021-01-15] MEDS: OXYCODONE *CR* 20 MG TAB PO SCH (21:02)
[2021-01-15] MEDS: ATORVASTATIN 10 MG TAB PO SCH (21:03)
[2021-01-15] MEDS: INSULIN GLARGINE 100 UNITS/ML SQ SCH (21:10)
[2021-01-15] MEDS: TRAMADOL HCL 50 MG TAB PO PRN (23:44)
[2021-01-16] MEDS ORDERED: FENTANYL CITR 100 MCG/2 ML IV ONE ×2 (03:11→03:22)
[2021-01-16 03:58] LABS: Magnesium 1.9 mg/dL (1.8-2.4); Potassium 3.5 mmol/L (3.5-5.1); Thyroid Stimulating Hormone 1.12 uIU/mL (0.360-3.740)
[2021-01-16 04:02] LABS: Absolute Lymphocytes (CBC) 0.9 K/uL (0.7-4.9); Basophils % 0.8 % (0-1.3); Hematocrit 25.9 % (39.6-49.0); Lymphocytes % 12.7 % (15.3-44.8); MPV 8.2 fL (7.6-11.3); RBC Red Blood Cell Count 2.88 M/uL (4.33-5.43)
[2021-01-16] MEDS: METOPROLOL XL 25 MG TAB PO SCH (06:22)
[2021-01-16] MEDS: INSULIN -REGULAR HUMAN 50 UNIT/0.5 ML ML SQ SCH ×4 (07:30→20:37)
[2021-01-16] MEDS: PANTOPRAZOLE 40MG TABLET PO SCH ×2 (07:30→17:15)
[2021-01-16] MEDS: FOLIC ACID 1 MG TABLET PO SCH (09:00)
[2021-01-16] MEDS: ENOXAPARIN 40 MG/0.4 ML SQ SCH (09:00)
[2021-01-16] MEDS: ASPIRIN EC 81 MG TAB PO SCH (09:00)
[2021-01-16] MEDS ORDERED: POTASSIUM 25 MEQ EFFERV TAB PO ONE (09:00)
[2021-01-16] MEDS: THIAMINE HCL 100 MG TABLET PO SCH (09:00)
[2021-01-16] MEDS: GABAPENTIN 300 MG CAP PO SCH ×3 (09:00→20:35)
[2021-01-16] MEDS ORDERED: VANCOMYCIN 1 GM in NA CHLORIDE 0.9% 500 ML IVPB SCH (09:00)
[2021-01-16] MEDS: OXYCODONE *CR* 20 MG TAB PO SCH ×3 (09:00→20:34)
[2021-01-16] MEDS: CEFEPIME/SWI 1gm 10 ML IVP SCH ×2 (09:37→20:36)
[2021-01-16] MEDS: NA CHLORIDE 0.9% 1,000 ML IV SCH (09:51)
[2021-01-16] MEDS ORDERED: HYDROMORPHONE HCL 0.5 MG/0.5 ML INJ IV ONE (09:54)
[2021-01-16] MEDS ORDERED: D50W 50 ML IV ONE (11:49)
[2021-01-16] MEDS: D50W 25 GM/50 ML VIAL IV PRN (11:50)
[2021-01-16] MEDS ORDERED: NA CHLORIDE 0.9% 0 ML ONE (11:59)
[2021-01-16] MEDS ORDERED: NA CHLORIDE 0.9% 1,000 ML ONE (11:59)
[2021-01-16] MEDS ORDERED: propofoL 200 MG/20 ML VIAL IV ONE (12:11)
[2021-01-16] MEDS ORDERED: LIDOCAINE 1% MPF 5 ML VIAL ONE (12:12)
[2021-01-16] MEDS ORDERED: FENTANYL CITR 100 MCG/2 ML ONE (12:12)
--- NOTE | 2021-01-16 12:21 | P.CNS ---
Date of Consult: 01/16/21 Primary Care Provider: Dr. Merrill Chief Complaint: Pain to chronic wounds to the lower extremity History of Present Illness: The patient is an 81-year-old male with a past medical history of chronic lower extremity wounds, diabetes type 2, renal insufficiency, COPD, CAD, hypertension, and GERD who presented to the emergency room due to worsening pain to the bilateral lower extremities. The patient has chronic wounds in bilateral lower extremities which he states have been present for about the a year and a half. Wound extend from patient's heels up the back of his legs towards his knee. Wounds are mainly on the lateral and posterior aspects of the bilateral calf, patient also has deep tissue injuries to bilateral heels with the deep tissue injuries extending down the lateral aspect of both feet. Wounds on calfs are unstageable with thiv-[id number] drainage with tendon exposed. Wounds likely pressure in origin however patient also has PAD with poor circulation making arterial insufficiency also a factor. Patient also has sacral deep tissue injury and sacraococcyx stage 3 decubitius wounds. Patient is currently on vancomycin and cefepime, and is scheduled for surgical debridement of his bilateral lower extremity wounds today. He denies nausea, vomiting, diarrhea, shortness of breath, or chest pain. He does state that he is having pain to his bilateral lower extremities as well as his backside. Patient is currently utilizing 3 L nasal cannula. Allergies morphine Allergy (Verified 10/05/20 13:36) Shortness of breath Home Medications: Alprazolam [Xanax] 1 mg PO TID PRN 10/05/20 Gabapentin 600 mg PO BEDTIME 10/05/20 Metoclopramide [Reglan*] 10 mg PO BID PRN 10/05/20 Metoprolol Succinate [Toprol Xl*] 12.5 mg PO DAILY 10/05/20 Ondansetron [Zuplenz] 8 mg PO Q4H PRN 10/05/20 Oxycodone HCl [Oxycontin] 80 mg PO TID PRN 10/05/20 Simvastatin 20 mg PO BEDTIME 10/05/20 Trazodone HCl 100 mg PO BEDTIME 10/05/20 Pantoprazole [Protonix Tab*] 40 mg PO BID 30 Days #60 tab 10/06/20 - Past Medical/Surgical History Diabetic: Yes -: Chronic pain -: HTN -: CAD with prior stents -: Diabetes mellitus type 2 insulin-dependent -: Peripheral vascular disease -: Hyperlipidemia -: GERD -: Chronic ulcers, 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 Lives at home. - Family History Father Medical History: Heart disease - Social History Smoking Status: Current every day smoker Alcohol use: No CD- Drugs: No Caffeine use: Yes Place of Residence: Home Review of Systems 10-point ROS is otherwise unremarkable Physical Examination Temp Pulse Resp BP Pulse Ox 97.5 F 70 18 136/74 96 01/16/21 08:00 01/16/21 08:00 01/16/21 08:00 01/16/21 08:00 01/16/21 08:00 General: Alert, Oriented x3 HEENT: Atraumatic, Normocephalic Neck: Supple, 2+ carotid pulse no bruit, JVD not distended Respiratory: Clear to auscultation bilaterally, Normal air movement Cardiovascular: No edema, Normal S1 S2 Capillary refill: <2 Seconds Gastrointestinal: Normal bowel sounds, Soft and benign Musculoskeletal: No clubbing, No swelling Integumentary: Pressure ulcer (see other for discription ), Other Other Physical/Emotional Findings: wounds: bilateral heels: DTI, purple nonblachable discoloration noted to both heels. Left lateral foot: unstageable 1x0.5 cm pressure wound-100% necrotic tissue. right second metatarsal: unstageable pressure wound on fat pad of toe, 100% necrotic tissue. Right lateral foot: DTI, nonblanching purple discolor Laboratory Last Values WBC 10.10 K/uL (4.3-10.9) 01/15/21 08:32 RBC 3.53 M/uL (4.33-5.43) L 01/15/21 08:32 Hgb 10.5 g/dL (13.6-17.9) L 01/15/21 08:32 Hct 32.1 % (39.6-49.0) L 01/15/21 08:32 MCV 91.1 fL (80-100) D 01/15/21 08:32 MCH 29.8 pg (27.0-35.0) 01/15/21 08:32 MCHC 32.8 g/dL (32.0-36.0) 01/15/21 08:32 RDW 15.3 % (12.1-15.2) H 01/15/21 08:32 Plt Count 255 K/uL (152-406) 01/15/21 08:32 MPV 7.7 fL (7.6-11.3) 01/15/21 08:32 Neutrophils % 77.8 % (41.7-73.7) H 01/15/21 08:32 Lymphocytes % 7.9 % (15.3-44.8) L 01/15/21 08:32 Monocytes % 13.0 % (3.3-12.3) H 01/15/21 08:32 Eosinophils % 0.6 % (0-4.4) 01/15/21 08:32 Basophils % 0.7 % (0-1.3) 01/15/21 08:32 Absolute Neutrophils 7.9 K/uL (1.8-8.0) 01/15/21 08:32 Absolute Lymphocytes 0.8 K/uL (0.7-4.9) 01/15/21 08:32 Absolute Monocytes 1.3 K/uL (0.1-1.3) 01/15/21 08:32 Absolute Eosinophils 0.1 K/uL (0-0.5) 01/15/21 08:32 Absolute Basophils 0.1 K/uL (0-0.5) 01/15/21 08:32 PT 16.9 SECONDS (9.5-12.5) H 01/15/21 08:32 INR 1.46 01/15/21 08:32 Sodium 136 mmol/L (136-145) 01/15/21 08:32 Potassium 3.4 mmol/L (3.5-5.1) L 01/15/21 08:32 Chloride 96 mmol/L (98-107) L 01/15/21 08:32 Carbon Dioxide 32 mmol/L (21-32) 01/15/21 08:32 BUN 25 mg/dL (7-18) H 01/15/21 08:32 Creatinine 1.98 mg/dL (0.55-1.3) H 01/15/21 08:32 Estimated GFR 33 mL/min (=/>90) L 01/15/21 08:32 Glucose 169 mg/dL (74-106) H 01/15/21 08:32 Lactic Acid 2.1 mmol/L (0.4-2.0) H 01/15/21 08:32 Calcium 8.6 mg/dL (8.5-10.1) 01/15/21 08:32 Magnesium 1.8 mg/dL (1.8-2.4) D 01/15/21 08:32 Total Bilirubin 0.9 mg/dL (0.2-1.0) 01/15/21 08:32 Direct Bilirubin 0.5 mg/dL (0-0.2) H 01/15/21 08:32 AST 17 U/L (15-37) 01/15/21 08:32 ALT 13 U/L (12-78) 01/15/21 08:32 Alkaline Phosphatase 94 U/L (45-117) 01/15/21 08:32 Rapid Troponin I 0.02 ng/mL (0.0-0.045) 01/15/21 08:32 NT-Pro-B Natriuret Pep 4513 pg/mL (<450) H 01/15/21 08:32 Serum Total Protein 6.7 g/dL (6.4-8.2) 01/15/21 08:32 Albumin 2.6 g/dL (3.4-5.0) L 01/15/21 08:32 Globulin 4.1 g/dL (2.3-3.5) H 01/15/21 08:32 Albumin/Globulin Ratio 0.6 (1.1-1.8) L 01/15/21 08:32 SARS-CoV-2 RNA (RT-PCR) Negative (NEGATIVE) 01/15/21 11:24 Conclusions/Impression: Assessment: 1. Bilateral heel deep tissue injury, right lateral foot deep tissue injury, right 2nd metatarsal deep tissue injury 2. acute/chronic Bilateral lower leg unstageable wounds 3. Left lateral foot unstageable wound 4. Sacral deep tissue injury 5. Sacral coccyx stage III wound 6. Anemia 7. Protein caloric malnutrition 8. Diabetes type 2 9. PAD 10. Renal insufficiency 11. CAD 12. COPD Plan: 1. To lower extremity deep tissue injuries: Pain area with Betadine and continue to offload. 2-3: [place] area with Betadine, apply xerofrom, cover with foam or gauze . -surgical debridement scheduled on 01/16 -Wound cultures pending. -Continue IV vancomycin and cefepime renally adjusted. Appreciate vancomycin dosing adjustment from pharmacy. -Recommendation the discharge to LTAC with hyperbaric oxygen treatment therapy available to accelerate wound healing -patient will need extensive IV antibiotic treatment for 6 weeks or 2-4 weeks IV with p.o. antibiotics for 2 weeks. 4-5: Clean the area with normal saline, apply barrier cream, cover with foam. -medical management per primary team -continue monitor CBC and BMP -continue to monitor for signs of infection Plan of care discussed with Dr. Evangelista Thank you for consultation
[2021-01-16] MEDS ORDERED: COLLAGENASE 30 GM OINTMENT TOP ONE (12:26)
--- NOTE | 2021-01-16 12:59 | P.BOP ---
Preoperative diagnosis: necrotic infected wounds bilateral legs and feet. Postoperative diagnosis: same Primary procedure: Excisional debridement necrotic wounds of : 1. Right leg 23x5cm, Secondary procedure: 2. Right foot 15x9cm, 3. Left foot 11x8 cm, 4. Left leg 24x5 cm Estimated blood loss: <20cc Specimen: necrotic tissue Findings: see dictation Anesthesia: General Complications: None Transferred to: Recovery Room Condition: Good
[2021-01-16] MEDS ORDERED: HYDROMORPHONE HCL 1 MG/ML INJ ONE (13:01)
[2021-01-16] MEDS ORDERED: NS 0.9% VIAL 10 ML ONE (13:02)
[2021-01-16] MEDS ORDERED: KETOROLAC 30 MG/ML INJ ONE (13:02)
[2021-01-16] MEDS ORDERED: ONDANSETRON 4 MG/2 ML VIAL ONE (13:03)
[2021-01-16] MEDS ORDERED: INFLUENZA VACCINE (for 3y+) 0.5 ML DOSE IMVAC ONE (15:00)
--- NOTE | 2021-01-16 15:01 | CON ---
Date of Consultation: 01/16/2021 Diagnoses: Bilateral lower extremities infected necrotic venous stasis ulcers and also bilateral jaron l stage IV necrotic ulcers. History Of Present Illness: This is the case of an 81-year-old patient who was admitted to this hosp ital with bilateral lower extremity cellulitis and necrotic ulcers. I talked to the since patie nt cannot give any information. He has been seen at the [facility] since December. He has been in the [facility] for a long time, in and out. He has chronic wounds in the lateral anterior region that at one point were down to tendon and muscle. He was discharged not too long ago a few days ago and comes no w with the same ulcers in the leg which has not heal, but also now we have new areas of bilateral jaron l region with stage IV decubitus ulcers present, necrotic with fluctuance seen. I was called for noman ridement of those wounds. We cannot obtain full information from the or from the patient. They claimed that about 2 weeks ago, they did vascular studies to check the circulation of the lower extr emity. We would like to obtain those, so we do not have to repeat them here. Review of Systems: As per H and P, unable to get anything else. Past Medical History: Includes hypertension, peripheral vascular disease, diabetes, multiple chronic venous stasis ulcers in the lower extremity and now decubitus ulcers in the bilateral heel region an d as above. Past Surgical History: Includes cardiac stents, bilateral fem-pop, knee replacement in the right kne e, spinal surgery, appendectomy, cholecystectomy, partial index finger partial amputation and as abov e. Social History: He smokes. Advised once again the importance of stopping smoking since it is not co ntributing or improving his disease. He does not drink alcohol. Family History: Noncontributory. Physical Examination: General: The patient is awake, alert. Chest: Clear. Abdomen: Soft and depressible. Extremities: The patient has large ulcers in the anterior and medial tibial region. They go all the way down to muscle and tendon. They have the evidence of cellulitis too. Also in his feet, the pat ient has bilateral heel stage IV decubitus ulcer with fluctuance present. Erythema, necrotic wounds, and there needed to be debrided too. Assessment: An 81-year-old patient with multiple large ulcers, bilateral lower extremities and bilat eral feet. Apparently, he has been dealing with this for about a year and a half already, the last 6 months getting worse, exacerbated by also recent fractures that require a repair as per the patient' s family on the hip region. I explained to them that the basics of healing is offloading, nutrition, stop smoking and improve circulation. There is limited understanding of his disease what I can get back as a feedback from the family. They want me just to give a mail up here too see if he improves and I explained to them that is not that simple and needs long-term treatment, not just a 1-2 days of that, so I explained to them that I will clean those, but the bleeding is not enough. He has to pro vide all those to be able to heal and he still may require amputation of the lower extremities, but t chaim we are just going to clean him, so we going to get consent for that. The benefits, alternatives , and risks were fully explained to the family which include, but not limited to infection, bleeding, damage to adjacent structures, anesthesia complication, nonhealing wound, UT, and even . JAMA/JEFERSON Voice ID: [id number] Report ID: [id number]
--- NOTE | 2021-01-16 17:55 | OP ---
Date of Procedure: 01/16/2021 Surgeon: Reji Ortiz MD Preoperative Diagnosis: Bilateral lower extremity and bilateral feet necrotic infected ulcers. Postoperative Diagnosis: Bilateral lower extremity and bilateral feet necrotic infected ulcers. Procedures: 1.Excisional debridement of necrotic wound, right leg, 23 x 5 cm. 2.Excisional debridement of right foot and heel, 15 x 9 cm. 3.Excisional debridement of necrotic wounds, left foot, 11 x 8 cm. 4.Excisional debridement of necrotic wound, left leg, 24 x 5 cm. Anesthesia: General plus local. Indications: This is the case of an 81-year-old patient, who came recently to the hospital after rec ent discharge from another institution where he was taking care for bilateral lower extremity ulcers. He was sent home. The family states he could not move much. He has not eaten either well. Here w ith now large decubitus ulcers and necrotic ulcers in bilateral feet with some also in part of the mi d foot, also necrotic wounds down to muscle on the left side and right side of the bilateral lower le g posteriorly. The patient and family explained the need for debridement of those areas, but the mos t important part is offloading, nutrition and compliance with wound care. This area has some vascula r studies done in [place] recently where he was recently discharged. We are trying to get those re sults and that will probably help us to determine and plan ahead his wound care if we have a chance f or improvement. The benefits, alternatives, and risks were fully explained, which include, but not l imited to infection, bleeding, damage to adjacent structures, anesthesia complication, nonhealing wou nd, IL, and even . He also understood this may not relieve any symptoms. He might need more th an one surgical intervention. He understood, consent was signed. Procedure In Detail: The patient was brought to the operating room, placed in supine position. Anes thesia was done without complication. Bilateral lower extremities were prepped and draped in sterile fashion. Local anesthesia was applied followed by sharp debridement of all these wounds, which were extensive with a sharp knife and helped with Bovie cauterizer for hemostasis. We removed all the ne crotic tissue present to the point that it is safe. The deepest of this was on the left side, goes d own to muscle and tendon. Hemostasis was obtained and the area was covered with Santyl and then ster ile dressings on top. The patient tolerated the procedure well. The patient was sent to recovery in stable condition. JAMA/JEFERSON Voice ID: [id number] Report ID: [id number]
--- NOTE | 2021-01-16 20:24 | P.CNS ---
Date of Consult: 01/16/21 Reason for Consult: TRINA/ CKD Requesting Physician: Zion Guido Primary Care Provider: Dr. Merrill Chief Complaint: Pain to chronic wounds to the lower extremity History of Present Illness: 81-year-old male with history of insulin-dependent diabetes type 2, hypertension, CAD, peripheral vascular disease, GERD, chronic pain and 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 Patient presented with worsening pain to the lower extremities bilateral. Patient has chronic open wounds/ulcers to the lower extremities bilateral. These are mainly to the lateral aspect of the shins bilaterally. He also has pressure ulcers to the heels. Erythema noted to the heels. There is also a pressure ulcer noted to the buttocks region. It is been difficult to treat at home. Patient reports that he was at [facility] in then transfer to [place] over 3 weeks ago due to the wounds. He had been getting wound care primarily at home. reports treatment has been getting more difficult. Increasing pain noted. No fever noted. He denies any chest pain, shortness of breath. Patient came to the ER for further evaluation. 10:52 This 81 yrs old Male presents to ER via Wheelchair with complaints of Skin stephon Sore(s), Leg Pain, Feet Swelling. 10:52 The patient presents with decreased range of motion, pain, swelling, tenderness. The stephon complaints affect the right foot, left foot, right leg and left leg. Context: The problem was sustained at home, resulted from a penetrating injury, a repetitive motion, PRESSURE. Onset: The symptoms/episode began/occurred 2 week(s) ago. Modifying factors: The symptoms are alleviated by elevating leg, remaining still, the symptoms are aggravated by movement, weight bearing. Associated signs and symptoms: The patient has no apparent associated signs or symptoms. Treatment prior to arrival includes: cate wrap, elevation of the extremity. Severity of symptoms: At their worst the symptoms were moderate, in the emergency department the symptoms are unchanged. Allergies morphine Allergy (Verified 10/05/20 13:36) Shortness of breath Home medications list reviewed: Yes Home Medications: Alprazolam [Xanax] 1 mg PO TID PRN 10/05/20 Gabapentin 600 mg PO BEDTIME 10/05/20 Metoclopramide [Reglan*] 10 mg PO BID PRN 10/05/20 Metoprolol Succinate [Toprol Xl*] 12.5 mg PO DAILY 10/05/20 Ondansetron [Zuplenz] 8 mg PO Q4H PRN 10/05/20 Oxycodone HCl [Oxycontin] 80 mg PO TID PRN 10/05/20 Simvastatin 20 mg PO BEDTIME 10/05/20 Trazodone HCl 100 mg PO BEDTIME 10/05/20 Pantoprazole [Protonix Tab*] 40 mg PO BID 30 Days #60 tab 10/06/20 - Past Medical/Surgical History Diabetic: Yes -: Chronic pain -: HTN -: CAD with prior stents -: Diabetes mellitus type 2 insulin-dependent -: Peripheral vascular disease -: Hyperlipidemia -: GERD -: Chronic ulcers, 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 Lives at home. - Family History Father Medical History: Heart disease - Social History Smoking Status: Current every day smoker Alcohol use: No CD- Drugs: No Caffeine use: Yes Place of Residence: Home Review of Systems 10-point ROS is otherwise unremarkable General: Weakness, Malaise Neurological: Weakness Physical Examination Temp Pulse Resp BP Pulse Ox 97.2 F 74 20 135/62 99 01/16/21 16:00 01/16/21 16:00 01/16/21 16:00 01/16/21 16:00 01/16/21 16:00 General: In no apparent distress, Oriented x3, Cooperative HEENT: Atraumatic Neck: Supple Respiratory: Clear to auscultation bilaterally Cardiovascular: Regular rate/rhythm, Edema Gastrointestinal: Soft and benign, Non-distended Musculoskeletal: No clubbing, No contractures Integumentary: No cyanosis, Skin breakdown, Skin lesion Neurological: Normal speech Blood work reviewed in the chart. Imagings Data: EXAM DESCRIPTION: RAD - Chest Single View - 01/15/2021 9:29 am CLINICAL HISTORY: COUGH Chest pain. COMPARISON: Chest Single View dated 10/31/2020; Chest Single View dated 2019; Chest Pa And Lat (2 Views) dated 09/27/2020; Chest Single View dated 11/23/2019 FINDINGS: Portable technique limits examination quality. 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 No focal infiltrate detected. The heart is normal in size. No displaced fractures.Mild aortic atherosclerosis. Conclusions/Impression: A/P TRINA likely due to hypovolemia CKD III -No NSAIDs -Change IVF 1/2NS Hypokalemia -Replete potassium Hypocalcemia -Recommend Vitamin D HTN -Continue Metoprolol DM II with CKD -Continue Lantus Moderate malnutrition -Encourage nutrition Anemia in chronic illness -Monitor H&H PAD with LE ulcers -Continue Cefepime and Vancomycin -Follow up with surgery
[2021-01-16] MEDS: ATORVASTATIN 10 MG TAB PO SCH (20:34)
[2021-01-16] MEDS: JUVEN PACKET PO SCH (20:36)
[2021-01-16] MEDS: INSULIN GLARGINE 100 UNITS/ML SQ SCH (20:36)
[2021-01-16] MEDS: NACHLORIDE 0.45% 1,000 ML IV SCH (22:27)
[2021-01-17] MEDS: VANCOMYCIN 1.25 GM in NA CHLORIDE 0.9% 250 ML IVPB SCH (03:42)
[2021-01-17] MEDS: METOPROLOL XL 25 MG TAB PO SCH (05:31)
[2021-01-17 06:05] LABS: Absolute Lymphocytes (CBC) 1.4 K/uL (0.7-4.9); Basophils % 0.8 % (0-1.3); Hematocrit 25.3 % (39.6-49.0); Lymphocytes % 20.2 % (15.3-44.8); MPV 7.8 fL (7.6-11.3); RBC Red Blood Cell Count 2.79 M/uL (4.33-5.43)
[2021-01-17 06:21] LABS: Magnesium 1.8 mg/dL (1.8-2.4); Potassium 3.4 mmol/L (3.5-5.1)
[2021-01-17] MEDS: D50W 25 GM/50 ML VIAL IV PRN (06:37)
[2021-01-17] MEDS ORDERED: POTASSIUM CL SA 10 MEQ TAB PO ONE (07:26)
[2021-01-17] MEDS: INSULIN -REGULAR HUMAN 50 UNIT/0.5 ML ML SQ SCH ×4 (07:30→21:00)
--- NOTE | 2021-01-17 08:55 | ECHO ---
HEIGHT: 5 ft 8 in WEIGHT: 160 lb 0 oz DATE OF STUDY: 01/16/[address]: Zion Guido DO 2-DIMENSIONAL: YES M.MODE: YES DOPPLER: YES COLOR FLOW: YES TDS: YES PORTABLE: NO DEFINITY: NO BUBBLE STUDY: NO DIAGNOSIS: HYPERTENSION CARDIAC HISTORY: CATHERIZATION: YES SURGERY: NO PROSTHETIC VALVE: NO PACEMAKER: NO MEASUREMENTS (cm) DIASTOLIC (NORMALS) SYSTOLIC (NORMALS) IVSd (0.6-1.2) LA Diam (1.9-4.0) LVEF % LVIDd (3.5-5.7) LVIDs (2.0-3.5) %FS % LVPWd (0.6-1.2) Ao Diam (2.0-3.7) 2 DIMENSIONAL ASSESSMENT: RIGHT ATRIUM: LEFT ATRIUM: RIGHT VENTRICLE: LEFT VENTRICLE: TRICUSPID VALVE: MITRAL VALVE: PULMONIC VALVE: AORTIC VALVE: PERICARDIAL EFFUSION: AORTIC ROOT: LEFT VENTRICULAR WALL MOTION: POOR WINDOWS. DOPPLER/COLOR FLOW: COMMENTS: VERY POOR WINDOWS. LEFT VENTRICULAR EJECTION FRACTION APPEARS NORMAL, RECOMMEND CONTRAST STUDY TO BETTER EVALUATE. TECHNOLOGIST: MOHIT GUEVARA
[2021-01-17] MEDS: OXYCODONE *CR* 20 MG TAB PO SCH ×2 (09:00→20:52)
[2021-01-17] MEDS: JUVEN PACKET PO SCH ×2 (09:00→20:53)
[2021-01-17] MEDS: ASPIRIN EC 81 MG TAB PO SCH (10:14)
[2021-01-17] MEDS: GABAPENTIN 300 MG CAP PO SCH ×3 (10:15→20:53)
[2021-01-17] MEDS: FOLIC ACID 1 MG TABLET PO SCH (10:15)
[2021-01-17] MEDS: ENOXAPARIN 40 MG/0.4 ML SQ SCH (10:15)
[2021-01-17] MEDS: PANTOPRAZOLE 40MG TABLET PO SCH ×2 (10:15→17:56)
[2021-01-17] MEDS: THIAMINE HCL 100 MG TABLET PO SCH (10:15)
[2021-01-17] MEDS: CEFEPIME/SWI 1gm 10 ML IVP SCH ×2 (10:16→20:52)
[2021-01-17] MEDS: ACETAMINOPHEN 500 MG TAB PO PRN ×2 (13:18→17:56)
[2021-01-17] MEDS: TRAMADOL HCL 50 MG TAB PO PRN ×2 (13:18→18:29)
[2021-01-17] MEDS: NACHLORIDE 0.45% 1,000 ML IV SCH (13:18)
--- NOTE | 2021-01-17 13:18 | PN ---
Date of Progress Note: 01/17/2021 Diagnosis: Bilateral lower extremities nonhealing ulcers and bilateral heel decubitus ulcers, status post debridement yesterday. The patient is doing better. Physical Examination: Surgical area is intact. Abdomen is soft and depressible. Plan: I discussed the case with the primary doctor. There is an option of LTAC for wound care if po ssible. Otherwise, if he managed to go home with home health agency, then he is going to have [facility] until we believe he does not need anymore. The rachid alvarado fully explained the need for offloading, compliance with dressing changes, compliance with medi cation and diet. If he gets discharged, then we will follow the patient next Saturday [facility] the [facility]. JAMA/JEFERSON Voice ID: [id number] Report ID: [id number]
[2021-01-17] MEDS: HYDROMORPHONE HCL 0.5 MG/0.5 ML INJ IV PRN (15:05)
[2021-01-17] MEDS: ALPRAZOLAM 0.5 MG TABLET PO PRN (15:05)
--- NOTE | 2021-01-17 15:07 | P.PN ---
Subjective Date of Service: 01/17/21 Primary Care Provider: Dr. Merrill Chief Complaint: Pain to chronic wounds to the lower extremity Patient seen and examined at bedside status post debridement of bilateral lower extremity in bilateral feet infected necrotic ulcers. Surgical dressing orders placed. Continue current antibiotic therapy. Wound culture showed mixed skin jensen. Review of Systems 10-point ROS is otherwise unremarkable Physical Examination - Vital Signs Temperature: 97.3 F Blood Pressure: 108/54 Pulse: 78 Respirations: 18 Pulse Ox (%): 96 - Physical Exam Other Physical/Emotional Findings: General: Alert, Oriented x3. HEENT: Atraumatic, Normocephalic. Neck: Supple, 2+ carotid pulse no bruit, JVD not distended. Respiratory: Clear to auscultation bilaterally, Normal air movement. Cardiovascular: No edema, Normal S1 S2. Capillary refill: <2 Seconds. Gastrointestinal: Normal bowel sounds, Soft and benign. Musculoskeletal: No clubbing, No swelling. Integumentary: Pressure ulcer (see other for discription ), Other. Other Physical/Emotional Findings: wounds: bilateral heels: DTI, purple nonblachable discoloration noted to both heels. Left lateral foot: unstageable. right second metatarsal: unstageable . Right lateral foot: DTI, nonblanching purple discolor. Right lateral/posterior leg wound: 23x5cm. Left lateral ulcer: 24x5 cm. s/p debridement on 01/17. - Studies Laboratory Last Values WBC 10.10 K/uL (4.3-10.9) 01/15/21 08:32 RBC 3.53 M/uL (4.33-5.43) L 01/15/21 08:32 Hgb 10.5 g/dL (13.6-17.9) L 01/15/21 08:32 Hct 32.1 % (39.6-49.0) L 01/15/21 08:32 MCV 91.1 fL (80-100) D 01/15/21 08:32 MCH 29.8 pg (27.0-35.0) 01/15/21 08:32 MCHC 32.8 g/dL (32.0-36.0) 01/15/21 08:32 RDW 15.3 % (12.1-15.2) H 01/15/21 08:32 Plt Count 255 K/uL (152-406) 01/15/21 08:32 MPV 7.7 fL (7.6-11.3) 01/15/21 08:32 Neutrophils % 77.8 % (41.7-73.7) H 01/15/21 08:32 Lymphocytes % 7.9 % (15.3-44.8) L 01/15/21 08:32 Monocytes % 13.0 % (3.3-12.3) H 01/15/21 08:32 Eosinophils % 0.6 % (0-4.4) 01/15/21 08:32 Basophils % 0.7 % (0-1.3) 01/15/21 08:32 Absolute Neutrophils 7.9 K/uL (1.8-8.0) 01/15/21 08:32 Absolute Lymphocytes 0.8 K/uL (0.7-4.9) 01/15/21 08:32 Absolute Monocytes 1.3 K/uL (0.1-1.3) 01/15/21 08:32 Absolute Eosinophils 0.1 K/uL (0-0.5) 01/15/21 08:32 Absolute Basophils 0.1 K/uL (0-0.5) 01/15/21 08:32 PT 16.9 SECONDS (9.5-12.5) H 01/15/21 08:32 INR 1.46 01/15/21 08:32 Sodium 136 mmol/L (136-145) 01/15/21 08:32 Potassium 3.4 mmol/L (3.5-5.1) L 01/15/21 08:32 Chloride 96 mmol/L (98-107) L 01/15/21 08:32 Carbon Dioxide 32 mmol/L (21-32) 01/15/21 08:32 BUN 25 mg/dL (7-18) H 01/15/21 08:32 Creatinine 1.98 mg/dL (0.55-1.3) H 01/15/21 08:32 Estimated GFR 33 mL/min (=/>90) L 01/15/21 08:32 Glucose 169 mg/dL (74-106) H 01/15/21 08:32 Lactic Acid 2.1 mmol/L (0.4-2.0) H 01/15/21 08:32 Calcium 8.6 mg/dL (8.5-10.1) 01/15/21 08:32 Magnesium 1.8 mg/dL (1.8-2.4) D 01/15/21 08:32 Total Bilirubin 0.9 mg/dL (0.2-1.0) 01/15/21 08:32 Direct Bilirubin 0.5 mg/dL (0-0.2) H 01/15/21 08:32 AST 17 U/L (15-37) 01/15/21 08:32 ALT 13 U/L (12-78) 01/15/21 08:32 Alkaline Phosphatase 94 U/L (45-117) 01/15/21 08:32 Rapid Troponin I 0.02 ng/mL (0.0-0.045) 01/15/21 08:32 NT-Pro-B Natriuret Pep 4513 pg/mL (<450) H 01/15/21 08:32 Serum Total Protein 6.7 g/dL (6.4-8.2) 01/15/21 08:32 Albumin 2.6 g/dL (3.4-5.0) L 01/15/21 08:32 Globulin 4.1 g/dL (2.3-3.5) H 01/15/21 08:32 Albumin/Globulin Ratio 0.6 (1.1-1.8) L 01/15/21 08:32 SARS-CoV-2 RNA (RT-PCR) Negative (NEGATIVE) 01/15/21 11:24 Assessment And Plan - Plan Assessment: 1. Bilateral heel deep tissue injury, right lateral foot deep tissue injury, right 2nd metatarsal deep tissue injury 2. acute/chronic Bilateral lower leg unstageable wounds 3. Left lateral foot unstageable wound 4. Sacral deep tissue injury 5. Sacral coccyx stage III wound 6. Anemia 7. Protein caloric malnutrition 8. Diabetes type 2 9. PAD 10. Renal insufficiency 11. CAD 12. COPD Plan: 1. To lower extremity deep tissue injuries: Pain area with Betadine and continue to offload. 2-3: Surgical orders in place. Dr. Ortiz following. -Continue IV vancomycin and cefepime renally adjusted. Appreciate vancomycin dosing adjustment from pharmacy. -Recommendation the discharge to LTAC with hyperbaric oxygen treatment therapy available to accelerate wound healing -patient will need extensive IV antibiotic treatment for 6 weeks or 2-4 weeks IV with p.o. antibiotics for 2 weeks. -awaiting pre-albumin results. Her the patient has lost an extensive and laterally within the past few months. Important patient has adequate appetite/nutrition in order for proper wound healing. 4-5: Clean the area with normal saline, apply barrier cream, cover with foam. -medical management per primary team -continue monitor CBC and BMP -continue to monitor for signs of infection Plan of care discussed with Dr. Evangelista Thank you for consultation
[2021-01-17] MEDS ORDERED: INFLUENZA VACCINE (for 3y+) 0.5 ML DOSE IMVAC ONE (17:00)
--- NOTE | 2021-01-17 18:19 | P.PN ---
Date of Service: 01/17/21 Vital Signs Temp Pulse Resp BP Pulse Ox 97.8 F 68 18 102/51 L 97 01/17/21 16:00 01/17/21 16:00 01/17/21 16:00 01/17/21 16:00 01/17/21 16:00 Medications Acetaminophen (Acetaminophen 500 Mg Tab) 500 mg PO Q4HP PRN PRN Reason: TEMP > 101' F Last Admin: 01/17/21 17:56 Dose: 500 mg Documented by: Alprazolam (Alprazolam 0.5 Mg Tablet) 0.5 mg PO TID PRN PRN Reason: ANXIETY Last Admin: 01/17/21 15:05 Dose: 0.5 mg Documented by: Aspirin (Aspirin Ec 81 Mg Tab) 81 mg PO DAILY [facility] Last Admin: 01/17/21 10:14 Dose: 81 mg Documented by: Atorvastatin Calcium (Atorvastatin 10 Mg Tab) 10 mg PO BEDTIME [facility] Last Admin: 01/16/21 20:34 Dose: 10 mg Documented by: Dextrose (D50w 25 Gm/50 Ml Vial) 12.5 gm IV PRN PRN; Protocol PRN Reason: HYPOGLYCEMIA Last Admin: 01/17/21 06:37 Dose: 12.5 gm Documented by: Enoxaparin Sodium (Enoxaparin 40 Mg/0.4 Ml) 40 mg SQ DAILY [facility] Last Admin: 01/17/21 10:15 Dose: 40 mg Documented by: Folic Acid (Folic Acid 1 Mg Tablet) 1 mg PO DAILY [facility] Last Admin: 01/17/21 10:15 Dose: 1 mg Documented by: Gabapentin (Gabapentin 300 Mg Cap) 300 mg PO TID [facility] Last Admin: 01/17/21 14:00 Dose: 300 mg Documented by: Glucagon (Glucagon 1 Mg/Vial) 1 mg IM 1X PRN; Protocol PRN Reason: HYPOGLYCEMIA Hydromorphone HCl (Hydromorphone Hcl 0.5 Mg/0.5 Ml Inj) 0.5 mg IV Q4H PRN PRN Reason: Pain scale 5-7 (Moderate) Last Admin: 01/17/21 15:05 Dose: 0.5 mg Documented by: Cefepime HCl (Maxipime 1 Gm/10 Ml Ivp) 10 mls @ 200 mls/hr IVP Q12HR [facility] Last Admin: 01/17/21 10:16 Dose: 10 mls Documented by: Vancomycin HCl 1.25 gm/ Sodium (Chloride) 250 mls @ 150 mls/hr IVPB Q36H [facility] Last Admin: 01/17/21 03:42 Dose: 250 mls Documented by: Sodium Chloride (Sodium Chloride 0.45%) 1,000 mls @ 80 mls/hr IV .[id number] [facility] Last Admin: 01/17/21 13:18 Dose: 1,000 mls Documented by: Insulin Glargine (Insulin Glargine 100 Units/Ml) 10 units SQ BEDTIME [facility] Last Admin: 01/16/21 20:36 Dose: 10 units Documented by: Insulin Human Regular (Insulin -Regular Human 50 Unit/0.5 Ml Ml) 0 unit SQ ACHS [facility]; Protocol Last Admin: 01/17/21 16:30 Dose: Not Given Documented by: L-Arginine/L-Glutamine/HMB (Antolin Packet) 1 pkt PO BID [facility] Last Admin: 01/17/21 09:00 Dose: 1 pkt Documented by: Metoprolol Succinate (Metoprolol Xl 25 Mg Tab) 12.5 mg PO [id number] [facility] Last Admin: 01/17/21 05:31 Dose: 12.5 mg Documented by: Ondansetron HCl (Ondansetron 4 Mg/2 Ml Vial) 4 mg IV Q6HP PRN PRN Reason: NAUSEA / VOMITING Oxycodone HCl (Oxycodone *Cr* 20 Mg Tab) 80 mg PO BID [facility] Last Admin: 01/17/21 09:00 Dose: 80 mg Documented by: Pantoprazole S[facility] ([facility]t) [facility] Protocol Last Admin: 01/17/21 17:56 Dose: 40 mg Documented by: Sodium Chloride (Flush Normal Saline 10 Ml) 10 ml IV BID [facility] Last Admin: 01/17/21 09:00 Dose: 10 ml Documented by: Thiamine HCl (Thiamine Hcl 100 Mg Tablet) 100 mg PO DAILY [facility] Last Admin: 01/17/21 10:15 Dose: 100 mg Documented by: Tramadol HCl (Tramadol Hcl 50 Mg Tab) 50 mg PO TID PRN PRN Reason: Pain scale 5-7 (Moderate) Last Admin: 01/17/21 13:18 Dose: 50 mg Documented by: Trazodone HCl (Trazodone 50 Mg Tablet) 50 mg PO BEDTIME PRN PRN PRN Reason: INSOMNIA Microbiology Results 01/15/21 08:50 Blood - Blood Aerobic Blood Culture - Preliminary No growth in 24 hours. 01/15/21 08:50 Blood - Blood Anaerobic Blood Culture - Preliminary No growth in 24 hours. 01/15/21 08:32 Blood - Blood Aerobic Blood Culture - Preliminary No growth in 24 hours. 01/15/21 08:32 Blood - Blood Anaerobic Blood Culture - Preliminary No growth in 24 hours. Assessment/ Plan: Nephrology No acute cardiac or pulmonary complaints. No CP or SOB. No acute events overnight. Vitals, medications, blood work and imaging reviewed in the chart. General: In no apparent distress, Oriented x3, Cooperative HEENT: Atraumatic Neck: Supple Respiratory: Clear to auscultation bilaterally Cardiovascular: Regular rate/rhythm, Edema Gastrointestinal: Soft and benign, Non-distended Musculoskeletal: No clubbing, No contractures Integumentary: No cyanosis, Skin breakdown, Skin lesion Neurological: Normal speech Blood work reviewed in the chart. Imagings Data: EXAM DESCRIPTION: RAD - Chest Single View - 01/15/2021 9:29 am CLINICAL HISTORY: COUGH Chest pain. COMPARISON: Chest Single View dated 10/31/2020; Chest Single View dated 10/05/2020; Chest Pa And Lat (2 Views) dated 09/27/2020; Chest Single View dated 11/23/2019 FINDINGS: Portable technique limits examination quality. 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 No focal infiltrate detected. The heart is normal in size. No displaced fractures.Mild aortic atherosclerosis. Conclusions/Impression: A/P TRINA likely due to hypovolemia CKD III -No NSAIDs -Continue IVF 1/2NS Hypokalemia -Replete potassium Hypocalcemia -Start Vitamin D HTN -Continue Metoprolol DM II with CKD -Continue Lantus Moderate malnutrition -Encourage nutrition Anemia in chronic illness -Monitor H&H PAD with LE ulcers -Continue Cefepime and Vancomycin -Follow up with surgery
[2021-01-17] MEDS: INSULIN GLARGINE 100 UNITS/ML SQ SCH (20:53)
[2021-01-17] MEDS: ATORVASTATIN 10 MG TAB PO SCH (20:53)
[2021-01-18] MEDS: NACHLORIDE 0.45% 1,000 ML IV SCH ×3 (02:47→22:07)
[2021-01-18] MEDS: HYDROMORPHONE HCL 0.5 MG/0.5 ML INJ IV PRN ×3 (05:30→14:34)
[2021-01-18] MEDS: METOPROLOL XL 25 MG TAB PO SCH (05:30)
[2021-01-18 06:37] LABS: Absolute Lymphocytes (CBC) 1.7 K/uL (0.7-4.9); Basophils % 0.8 % (0-1.3); Hematocrit 25.6 % (39.6-49.0); MPV 8.2 fL (7.6-11.3); RBC Red Blood Cell Count 2.84 M/uL (4.33-5.43)
[2021-01-18 06:55] LABS: Magnesium 1.7 mg/dL (1.8-2.4); Potassium 4.2 mmol/L (3.5-5.1)
[2021-01-18] MEDS: INSULIN -REGULAR HUMAN 50 UNIT/0.5 ML ML SQ SCH ×4 (07:30→21:00)
[2021-01-18] MEDS: TRAMADOL HCL 50 MG TAB PO PRN (07:37)
[2021-01-18] MEDS: ACETAMINOPHEN 500 MG TAB PO PRN ×2 (07:37→12:37)
[2021-01-18] MEDS: ALPRAZOLAM 0.5 MG TABLET PO PRN (07:38)
[2021-01-18] MEDS: D50W 25 GM/50 ML VIAL IV PRN (08:01)
[2021-01-18] MEDS: CEFEPIME/SWI 1gm 10 ML IVP SCH ×2 (09:01→22:07)
[2021-01-18] MEDS: OXYCODONE *CR* 20 MG TAB PO SCH ×2 (09:01→22:06)
[2021-01-18] MEDS: GABAPENTIN 300 MG CAP PO SCH ×3 (09:02→22:05)
[2021-01-18] MEDS: VITAMIN D 5,000 UNIT CAP PO SCH (09:02)
[2021-01-18] MEDS: PANTOPRAZOLE 40MG TABLET PO SCH ×2 (09:02→16:30)
[2021-01-18] MEDS: THIAMINE HCL 100 MG TABLET PO SCH (09:02)
[2021-01-18] MEDS: ASPIRIN EC 81 MG TAB PO SCH (09:02)
[2021-01-18] MEDS: ENOXAPARIN 40 MG/0.4 ML SQ SCH (09:02)
[2021-01-18] MEDS: FOLIC ACID 1 MG TABLET PO SCH (09:02)
[2021-01-18] MEDS: JUVEN PACKET PO SCH ×2 (09:08→22:08)
--- NOTE | 2021-01-18 09:36 | P.PN ---
Subjective Date of Service: 01/16/21 Patient taken to the OR today per Dr. Ortiz. Continue with wound debridement. Continue with wound care after surgery. Prognosis long-term is poor. Family may need to consider LTAC placement. If they are not wanting aggressive care to heal the wounds properly and patient may consider hospice as he is apparently having a lot of pain per family. Review of Systems 10-point ROS is otherwise unremarkable Physical Examination - Vital Signs Temperature: 98.1 F Blood Pressure: 136/60 Pulse: 63 Respirations: 20 Pulse Ox (%): 97 - Physical Exam General: Alert, In no apparent distress, Oriented x3 Respiratory: Clear to auscultation bilaterally, Normal air movement Cardiovascular: Regular rate/rhythm, Normal S1 S2, No murmurs Gastrointestinal: Normal bowel sounds, Soft and benign, Non-distended, No tenderness Musculoskeletal: No clubbing, No swelling, No tenderness Neurological: Sensation intact, Cranial nerves 3-12 intact Other Physical/Emotional Findings: General: Alert, Oriented x3. HEENT: Atraumatic, Normocephalic. Neck: Supple, 2+ carotid pulse no bruit, JVD not distended. Respiratory: Clear to auscultation bilaterally, Normal air movement. Cardiovascular: No edema, Normal S1 S2. Capillary refill: <2 Seconds. Gastrointestinal: Normal bowel sounds, Soft and benign. Musculoskeletal: No clubbing, No swelling. Integumentary: Pressure ulcer (see other for discription ), Other. Other Physical/Emotional Findings: wounds: bilateral heels: DTI, purple nonblachable discoloration noted to both heels. Left lateral foot: unstageable. right second metatarsal: unstageable . Right lateral foot: DTI, nonblanching purple discolor. Right lateral/posterior leg wound: 23x5cm. Left lateral ulcer: 24x5 cm. s/p debridement on 01/17. - Studies Medications List Reviewed: Yes Assessment & Plan - Problems (Diagnosis) (1) Diabetic ulcer of left great toe Current Visit: No Status: Resolved (2) Femoral-popliteal artery bypass graft Current Visit: No Status: Active (3) Hyperlipidemia Current Visit: No Status: Active (4) Stented coronary artery Current Visit: No Status: Active (5) Depression Current Visit: No Status: Acute (6) Diabetes mellitus Current Visit: No Status: Chronic - Plan 1. Continue with IV antibiotic 2. Continue with local wound care; scheduled for debridement today 3. outpatient wound care 4. Gentle IV hydration 5. Monitor CBC 6. Strict blood sugar monitoring 7. Pain control 8. GI and DVT prophylaxis Discharge Plan: Home Plan to discharge in: Greater than 2 days - Advance Directives Does patient have a Living Will: Yes Does patient have a Durable POA for Healthcare: Yes - Code Status/Comfort Care Code Status Assessed: Yes Code Status: Full Code Critical Care: No Time Spent Managing PTS Care (In Minutes): 35
--- NOTE | 2021-01-18 09:42 | P.PN ---
Subjective Date of Service: 01/17/21 Patient with no new complaints. Review of Systems 10-point ROS is otherwise unremarkable Physical Examination - Vital Signs Temperature: 98.1 F Blood Pressure: 136/60 Pulse: 63 Respirations: 20 Pulse Ox (%): 97 - Physical Exam General: Alert, In no apparent distress, Oriented x2 Respiratory: Clear to auscultation bilaterally, Normal air movement Cardiovascular: Regular rate/rhythm, Normal S1 S2, Systolic murmur Gastrointestinal: Normal bowel sounds, Soft and benign, Non-distended, No tenderness Musculoskeletal: No clubbing, No swelling, No tenderness Integumentary: Skin breakdown, Erythema, Diabetic ulcer, Pressure ulcer, Venous stasis ulcer Neurological: Sensation intact, Cranial nerves 3-12 intact - Studies Medications List Reviewed: Yes Assessment & Plan - Problems (Diagnosis) (1) Diabetic ulcer of left great toe Status: Resolved (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 Continue with IV antibiotic 2. Continue with local wound care; 3. outpatient wound care; spoke with family and they do not want to go to LTAC. They want to go home. Spoke to them about home health versus hospice and they will speak with case management and decide if they want a proceed with hospice care. 4. Gentle IV hydration 5. Monitor CBC 6. Strict blood sugar monitoring 7. Pain control 8. GI and DVT prophylaxis - Advance Directives Does patient have a Living Will: Yes Does patient have a Durable POA for Healthcare: Yes - Code Status/Comfort Care Code Status: Full Code
--- NOTE | 2021-01-18 09:50 | P.PN ---
Subjective Date of Service: 01/18/21 Family has decided to go to long-term acute care facility. Will go ahead and let case management know and try to make arrangements. Review of Systems 10-point ROS is otherwise unremarkable Physical Examination - Vital Signs Temperature: 98.1 F Blood Pressure: 136/60 Pulse: 63 Respirations: 20 Pulse Ox (%): 97 - Physical Exam General: Alert, In no apparent distress, Oriented x3, Cachectic Respiratory: Clear to auscultation bilaterally Cardiovascular: Regular rate/rhythm, Normal S1 S2, No murmurs Gastrointestinal: Normal bowel sounds, Soft and benign, Non-distended Musculoskeletal: No clubbing, No swelling, Erythema, Tenderness Integumentary: Tenderness/swelling, Erythema Neurological: Sensation intact, Cranial nerves 3-12 intact Other Physical/Emotional Findings: General: Alert, Oriented x3. HEENT: Atraumatic, Normocephalic. Neck: Supple, 2+ carotid pulse no bruit, JVD not distended. Respiratory: Clear to auscultation bilaterally, Normal air movement. Cardiovascular: No edema, Normal S1 S2. Capillary refill: <2 Seconds. Gastrointestinal: Normal bowel sounds, Soft and benign. Musculoskeletal: No clubbing, No swelling. Integumentary: Pressure ulcer (see other for discription ), Other. Other Physical/Emotional Findings: wounds: bilateral heels: DTI, purple nonblachable discoloration noted to both heels. Left lateral foot: unstageable. right second metatarsal: unstageable . Right lateral foot: DTI, nonblanching purple discolor. Right lateral/posterior leg wound: 23x5cm. Left lateral ulcer: 24x5 cm. s/p debridement on 01/17. - Studies Medications List Reviewed: Yes Assessment & Plan - Problems (Diagnosis) (1) Diabetic ulcer of left great toe Status: Resolved (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 Continue with IV antibiotic 2. Continue with local wound care; 3. PICC line placement in arrange for outpatient IV antibiotic therapy; patient to go to LTAC facility per family request 4. Hep-Lock IV and encourage oral intake 5. Monitor CBC 6. Strict blood sugar monitoring 7. Pain control 8. GI and DVT prophylaxis Discharge Plan: Home Plan to discharge in: Greater than 2 days - Advance Directives Does patient have a Living Will: Yes Does patient have a Durable POA for Healthcare: Yes - Code Status/Comfort Care Code Status: Full Code Critical Care: No Time Spent Managing PTS Care (In Minutes): 35
[2021-01-18] MEDS ORDERED: MAGNESIUM SULFATE 1 gm IVPB 1 GM/100 ML BAG IV ONE (11:15)
--- NOTE | 2021-01-18 11:46 | PN ---
Subjective: The patient is lying in bed. by the bedside. Denies any headache, nausea, vomitin g, chest pain, abdominal pain, constipation, or diarrhea. Continued to have pain in his legs, especi ally on wound dressing changes. Objective: Vital Signs: Temperature 98, pulse 63, respirations 20, blood pressure 133/60. Examinat ion unchanged. Extremities: Lower extremity examination; status post debridement. Continued to have 50% necrotic a marcia on both legs and heels have DTIs. The patient also has a sacrococcyx area stage III wound. Laboratory Data: Shows WBC 6.4, hemoglobin 8.6, platelets are 198. Chemistry shows sodium 143, pota ssium 4.2, chloride 109, bicarb 31, BUN 15, creatinine 1.3, glucose is 49. Repeat sugar is 108. Sae ro data cultures growing bacterial growth at this time. Tissue culture is pending from the surgical debridement, 4+ gram-negative rods noted on one of the culture wounds. The patient is currently gett ing cefepime and vancomycin. Assessment And Plan: An 81-year-old male with severe peripheral arterial disease, coming in with mul tiple ulcerations to the legs and heel region. Also has sacrococcyx stage III wound. We will contin ue vancomycin and cefepime. and the patient agrees to long-term acute care for further manageme nt with hyperbaric and IV antibiotic and repeated surgical debridements if insurance approves. Aaron nue supportive care and wound care. We will recommend Medihoney with Alginate to the legs and Betadi ne to the heel region with offloading as much as possible. Sacrococcyx region to continue current tr eatment and using of wedge pillow. We will follow the patient closely. NF/MODL Voice ID: [id number] Report ID: [id number]
[2021-01-18] MEDS: CALCITROL 0.25 MCG CAP PO SCH (12:37)
--- NOTE | 2021-01-18 13:19 | PN ---
Date of Progress Note: 01/18/2021 Subjective: The patient was seen and examined at bedside. He is doing okay. Physical Examination: Vital Signs: Have been reviewed and are stable. General: He appears in no acute distress. Cachectic and malnourished. HEENT: Atraumatic head. Lungs: Clear to auscultation. Heart: Auscultation of the heart reveals regular rate and rhythm. Extremities: Showed no evidence of edema. Bilateral lower extremities were noted to be in dressing. Laboratory Data: Showing creatinine stable at 1.37. Other electrolytes are stable. Magnesium was l ow at 1.7 and calcium was low at 7.7. CBC showing anemia of chronic disease. Current Medications: Include half-normal saline at 80 mL an hour, atorvastatin, aspirin, cefepime 1 g every 12 hours, Lovenox 40 mg daily for DVT prophylaxis, insulin at bedtime, metoprolol, oxycodone 80 mg b.i.d., trazodone, tramadol, potassium 1 time dose was given, and vancomycin every 36 hours 1.2 5 g. Impression: 1.Bilateral lower extremity ulcers secondary to peripheral vascular disease, currently undergoing wo und care and antibiotics. Continue to monitor. 2.Acute on chronic renal insufficiency, improving at this time. 3.Type 2 diabetes, on insulin. 4.Chronic pain, on oxycodone. Plan: Overall, the patient's renal function is stable. Continue to monitor closely and monitor vanc omycin levels while he remains on antibiotics. The patient is also being in fact evaluated by Infectious Disease for further management as well. We will follow up closely. ARLETTE/JEFERSON Voice ID: [id number] Report ID: [id number]
[2021-01-18] MEDS: VANCOMYCIN 1.25 GM in NA CHLORIDE 0.9% 250 ML IVPB SCH (16:00)
[2021-01-18] MEDS: ATORVASTATIN 10 MG TAB PO SCH (22:05)
[2021-01-18] MEDS: INSULIN GLARGINE 100 UNITS/ML SQ SCH (22:05)
[2021-01-19] MEDS: ACETAMINOPHEN 500 MG TAB PO PRN (03:09)
[2021-01-19] MEDS: METOPROLOL XL 25 MG TAB PO SCH (05:41)
[2021-01-19] MEDS: INSULIN -REGULAR HUMAN 50 UNIT/0.5 ML ML SQ SCH ×4 (07:30→21:00)
[2021-01-19] MEDS ORDERED: MAGNESIUM SULFATE 1 gm IVPB 1 GM/100 ML BAG IV ONE (09:00)
[2021-01-19] MEDS: JUVEN PACKET PO SCH ×2 (09:00→21:38)
[2021-01-19] MEDS: VITAMIN D 5,000 UNIT CAP PO SCH (09:29)
[2021-01-19] MEDS: CALCITROL 0.25 MCG CAP PO SCH (09:29)
[2021-01-19] MEDS: OXYCODONE *CR* 20 MG TAB PO SCH ×2 (09:29→21:31)
[2021-01-19] MEDS: PANTOPRAZOLE 40MG TABLET PO SCH ×2 (09:29→15:52)
[2021-01-19] MEDS: FOLIC ACID 1 MG TABLET PO SCH (09:29)
[2021-01-19] MEDS: THIAMINE HCL 100 MG TABLET PO SCH (09:29)
[2021-01-19] MEDS: GABAPENTIN 300 MG CAP PO SCH ×3 (09:29→21:30)
[2021-01-19] MEDS: ASPIRIN EC 81 MG TAB PO SCH (09:29)
[2021-01-19] MEDS: CEFEPIME/SWI 1gm 10 ML IVP SCH (09:30)
[2021-01-19] MEDS: ENOXAPARIN 40 MG/0.4 ML SQ SCH (09:30)
[2021-01-19] MEDS: HYDROMORPHONE HCL 0.5 MG/0.5 ML INJ IV PRN ×2 (09:32→15:45)
[2021-01-19] MEDS: NACHLORIDE 0.45% 1,000 ML IV SCH (09:41)
[2021-01-19 11:05] LABS: Urine Appearance CLEAR; Urine Bilirubin NEGATIVE (NEG); Urine Blood NEGATIVE (NEG); Urine Color YELLOW; Urine Glucose NEGATIVE (NEG); Urine Protein TRACE (NEG); Urine Urobilinogen 0.2 mg/dL (0.2-1.0); Urine pH 6.5 (5.0-7.0)
[2021-01-19 11:19] LABS: Urine Protein/Creatinine Ratio 1.05 ratio (<0.15)
[2021-01-19 11:20] LABS: Urine Bacteria NONE SEEN /HPF (NONE SEEN); Urine RBC NONE SEEN /HPF (NONE SEEN)
--- NOTE | 2021-01-19 13:30 | P.PN ---
Subjective Date of Service: 01/19/21 Primary Care Provider: Dr. Merrill Chief Complaint: Pain to chronic wounds to the lower extremity Patient seen and examined at bedside, no acute complaints at this time. States he is still having some bilateral lower extremity pain. Surgical dressing still in place continue with dressing changes. Wound culture results back, antibiotics adjusted. Review of Systems 10-point ROS is otherwise unremarkable Physical Examination - Vital Signs Temperature: 97.5 F Blood Pressure: 139/66 Pulse: 64 Respirations: 19 Pulse Ox (%): 100 - Physical Exam Other Physical/Emotional Findings: General: Alert, Oriented x3. HEENT: Atraumatic, Normocephalic. Neck: Supple, 2+ carotid pulse no bruit, JVD not distended. Respiratory: Clear to auscultation bilaterally, Normal air movement. Cardiovascular: No edema, Normal S1 S2. Capillary refill: <2 Seconds. Gastrointestinal: Normal bowel sounds, Soft and benign. Musculoskeletal: No clubbing, No swelling. Integumentary: Pressure ulcer (see other for discription ), Other. Other Physical/Emotional Findings: wounds: bilateral heels: DTI, purple nonblachable discoloration noted to both heels. Left lateral foot: unstageable. right second metatarsal: unstageable . Right lateral foot: DTI, nonblanching purple discolor. Right lateral/posterior leg wound: 23x5cm. Left lateral ulcer: 24x5 cm. s/p debridement on 01/17. - Studies Microbiology 01/15/21 08:50 Blood - Blood Aerobic Blood Culture - Preliminary No growth in 24 hours. 01/15/21 08:50 Blood - Blood Anaerobic Blood Culture - Preliminary No growth in 24 hours. 01/15/21 08:32 Blood - Blood Aerobic Blood Culture - Preliminary No growth in 24 hours. 01/15/21 08:32 Blood - Blood Anaerobic Blood Culture - Preliminary No growth in 24 hours. Medications List Reviewed: Yes Assessment And Plan - Plan Assessment: 1. Bilateral heel deep tissue injury, right lateral foot deep tissue injury, right 2nd metatarsal deep tissue injury 2. acute/chronic Bilateral lower leg unstageable wounds 3. Left lateral foot unstageable wound 4. Sacral deep tissue injury 5. Sacral coccyx stage III wound 6. Anemia 7. Protein caloric malnutrition 8. Diabetes type 2 9. PAD 10. Renal insufficiency 11. CAD 12. COPD Plan: 1. To lower extremity deep tissue injuries: Pain area with Betadine and continue to offload. 2-3: Surgical orders in place. Dr. Ortiz following. -wound culture from bilateral lower extremities grew Pseudomonas aeruginosa and Klebsiella oxytoca. Both sensitive to ciprofloxacin, the patient started on renally adjusted dose of ciprofloxacin 200 mg q.12 hr, Continue IV vancomycin renally adjusted. Appreciate vancomycin dosing adjustment from pharmacy. Patient's estimated creatinine clearance based off of youth development professional creatinine level, PH, height, and weight is 41.6. -Recommendation the discharge to LTAC with hyperbaric oxygen treatment therapy available to accelerate wound healing -patient will need extensive IV antibiotic treatment for 6 weeks or 2-4 weeks IV with p.o. antibiotics for 2 weeks. -Prealbumin 4.7, Important patient has adequate appetite/nutrition in order for proper wound healing. Increase protein intake. 4-5: Clean the area with normal saline, apply barrier cream, cover with foam. -medical management per primary team -continue monitor CBC and BMP -continue to monitor for signs of infection Plan of care discussed with Dr. Evangelista Thank you for consultation
[2021-01-19] MEDS ORDERED: Ciprofloxacin 200mg IV 200 MG/100 ML IV.SOLN. IV SCH (14:00)
--- NOTE | 2021-01-19 18:37 | P.PN ---
Date of Service: 01/19/21 Vital Signs Temp Pulse Resp BP Pulse Ox 98.2 F 57 19 132/54 L 100 01/19/21 16:00 01/19/21 16:00 01/19/21 16:00 01/19/21 16:00 01/19/21 16:00 Medications Acetaminophen (Acetaminophen 500 Mg Tab) 500 mg PO Q4HP PRN PRN Reason: TEMP > 101' F Last Admin: 01/19/21 03:09 Dose: 500 mg Documented by: Alprazolam (Alprazolam 0.5 Mg Tablet) 0.5 mg PO TID PRN PRN Reason: ANXIETY Last Admin: 01/18/21 07:38 Dose: 0.5 mg Documented by: Aspirin (Aspirin Ec 81 Mg Tab) 81 mg PO DAILY [facility] Last Admin: 01/19/21 09:29 Dose: 81 mg Documented by: Atorvastatin Calcium (Atorvastatin 10 Mg Tab) 10 mg PO BEDTIME [facility] Last Admin: 01/18/21 22:05 Dose: 10 mg Documented by: Calcitriol (Calcitrol 0.25 Mcg Cap) 0.5 mcg PO DAILY [facility] Last Admin: 01/19/21 09:29 Dose: 0.5 mcg Documented by: Cholecalciferol (Vitamin D 5,000 Unit Cap) 5,000 unit PO DAILY [facility] Last Admin: 01/19/21 09:29 Dose: 5,000 unit Documented by: Dextrose (D50w 25 Gm/50 Ml Vial) 12.5 gm IV PRN PRN; Protocol PRN Reason: HYPOGLYCEMIA Last Admin: 01/18/21 08:01 Dose: 12.5 gm Documented by: Enoxaparin Sodium (Enoxaparin 40 Mg/0.4 Ml) 40 mg SQ DAILY [facility] Last Admin: 01/19/21 09:30 Dose: 40 mg Documented by: Folic Acid (Folic Acid 1 Mg Tablet) 1 mg PO DAILY [facility] Last Admin: 01/19/21 09:29 Dose: 1 mg Documented by: Gabapentin (Gabapentin 300 Mg Cap) 300 mg PO TID [facility] Last Admin: 01/19/21 15:52 Dose: 300 mg Documented by: Glucagon (Glucagon 1 Mg/Vial) 1 mg IM 1X PRN; Protocol PRN Reason: HYPOGLYCEMIA Hydromorphone HCl (Hydromorphone Hcl 0.5 Mg/0.5 Ml Inj) 0.5 mg IV Q4H PRN PRN Reason: Pain scale 5-7 (Moderate) Last Admin: 01/19/21 15:45 Dose: 0.5 mg Documented by: Vancomycin HCl 1.25 gm/ Sodium (Chloride) 250 mls @ 150 mls/hr IVPB Q36H [facility] Last Admin: 01/18/21 16:00 Dose: 250 mls Documented by: Sodium Chloride (Sodium Chloride 0.45%) 1,000 mls @ 80 mls/hr IV .[id number] [facility] Last Admin: 01/19/21 09:41 Dose: 1,000 mls Documented by: Insulin Glargine (Insulin Glargine 100 Units/Ml) 10 units SQ BEDTIME [facility] Last Admin: 01/18/21 22:05 Dose: 10 units Documented by: Insulin Human Regular (Insulin -Regular Human 50 Unit/0.5 Ml Ml) 0 unit SQ ACHS [facility]; Protocol Last Admin: 01/19/21 16:14 Dose: Not Given Documented by: L-Arginine/L-Glutamine/HMB (Antolin Packet) 1 pkt PO BID [facility] Last Admin: 01/19/21 09:00 Dose: 1 pkt Documented by: Magnesium Oxide (Magnesium Oxide 400 Mg Tab) 400 mg PO BEDTIME [facility] Metoprolol Succinate (Metoprolol Xl 25 Mg Tab) 12.5 mg PO [id number] [facility] Last Admin: 01/19/21 05:41 Dose: 12.5 mg Documented by: Oxycodone HCl (Oxycodone *Cr* 20 Mg Tab) 80 mg PO BID [facility] Last Admin: 01/19/21 09:29 Dose: 80 mg Documented by: Pantoprazole Sodium ([facility]ole 40mg Tablet) [facility]; Protocol Last Admin: 01/19/21 15:52 Dose: 40 mg Documented by: Sodium Chloride (Flush Normal Saline 10 Ml) 10 ml IV BID [facility] Last Admin: 01/19/21 09:00 Dose: Not Given Documented by: Thiamine HCl (Thiamine Hcl 100 Mg Tablet) 100 mg PO DAILY [facility] Last Admin: 01/19/21 09:29 Dose: 100 mg Documented by: Tramadol HCl (Tramadol Hcl 50 Mg Tab) 50 mg PO TID PRN PRN Reason: Pain scale 5-7 (Moderate) Last Admin: 01/18/21 07:37 Dose: 50 mg Documented by: Trazodone HCl (Trazodone 50 Mg Tablet) 50 mg PO BEDTIME PRN PRN PRN Reason: INSOMNIA Microbiology Results 01/15/21 08:50 Blood - Blood Aerobic Blood Culture - Preliminary No growth in 24 hours. 01/15/21 08:50 Blood - Blood Anaerobic Blood Culture - Preliminary No growth in 24 hours. 01/15/21 08:32 Blood - Blood Aerobic Blood Culture - Preliminary No growth in 24 hours. 01/15/21 08:32 Blood - Blood Anaerobic Blood Culture - Preliminary No growth in 24 hours. Assessment/ Plan: Nephrology No acute cardiac or pulmonary complaints. No CP or SOB. Feeling better today. No acute events overnight. Vitals, medications, blood work and imaging reviewed in the chart. General: In no apparent distress, Oriented x3, Cooperative HEENT: Atraumatic Neck: Supple Respiratory: Clear to auscultation bilaterally Cardiovascular: Regular rate/rhythm, Edema Gastrointestinal: Soft and benign, Non-distended Musculoskeletal: No clubbing, No contractures Integumentary: No cyanosis, Skin breakdown, Skin lesion Neurological: Normal speech Blood work reviewed in the chart. Imagings Data: EXAM DESCRIPTION: RAD - Chest Single View - 01/15/2021 9:29 am CLINICAL HISTORY: COUGH Chest pain. COMPARISON: Chest Single View dated 10/31/2020; Chest Single View dated 10/05/2020; Chest Pa And Lat (2 Views) dated 09/27/2020; Chest Single View dated 11/23/2019 FINDINGS: Portable technique limits examination quality. 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 No focal infiltrate detected. The heart is normal in size. No displaced fractures.Mild aortic atherosclerosis. Conclusions/Impression: A/P TRINA likely due to hypovolemia CKD III -No NSAIDs -Continue IVF 1/2NS Hypokalemia -Replete potassium prn Hypocalcemia -Start Vitamin D Hypomagnesemia -Replete with IV and PO magnesium HTN -Continue Metoprolol DM II with CKD -Continue Lantus Moderate malnutrition -Encourage nutrition Anemia in chronic illness -Monitor H&H PAD with LE ulcers -Continue Cefepime and Vancomycin -Follow up with surgery Counseled the patient regarding LTAC placement for wound care.
[2021-01-19] MEDS: MAGNESIUM OXIDE 400 MG TAB PO SCH (21:00)
[2021-01-19] MEDS: INSULIN GLARGINE 100 UNITS/ML SQ SCH (21:29)
[2021-01-19] MEDS: ATORVASTATIN 10 MG TAB PO SCH (21:30)
[2021-01-20 03:57] LABS: Potassium 5.1 mmol/L (3.5-5.1)
[2021-01-20] MEDS: VANCOMYCIN 1.25 GM in NA CHLORIDE 0.9% 250 ML IVPB SCH (04:26)
[2021-01-20] MEDS: METOPROLOL XL 25 MG TAB PO SCH (06:10)
[2021-01-20] MEDS: INSULIN -REGULAR HUMAN 50 UNIT/0.5 ML ML SQ SCH ×4 (07:30→20:28)
[2021-01-20] MEDS: JUVEN PACKET PO SCH ×2 (09:00→20:08)
[2021-01-20] MEDS: PANTOPRAZOLE 40MG TABLET PO SCH ×2 (10:16→16:30)
[2021-01-20] MEDS: CALCITROL 0.25 MCG CAP PO SCH (10:16)
[2021-01-20] MEDS: ENOXAPARIN 40 MG/0.4 ML SQ SCH (10:16)
[2021-01-20] MEDS: HYDROMORPHONE HCL 0.5 MG/0.5 ML INJ IV PRN ×2 (10:16→16:31)
[2021-01-20] MEDS: GABAPENTIN 300 MG CAP PO SCH ×3 (10:17→20:06)
[2021-01-20] MEDS: ASPIRIN EC 81 MG TAB PO SCH (10:17)
[2021-01-20] MEDS: THIAMINE HCL 100 MG TABLET PO SCH (10:17)
[2021-01-20] MEDS: FOLIC ACID 1 MG TABLET PO SCH (10:17)
[2021-01-20] MEDS: VITAMIN D 5,000 UNIT CAP PO SCH (10:17)
[2021-01-20] MEDS: OXYCODONE *CR* 20 MG TAB PO SCH ×2 (11:09→20:06)
[2021-01-20 11:25] VITALS: O2SAT 96
[2021-01-20] MEDS ORDERED: DIPHENHYDRAMINE 25 MG TAB/CAP PO PRN (14:14)
--- NOTE | 2021-01-20 14:55 | P.PN ---
Subjective Date of Service: 01/20/21 Primary Care Provider: Dr. Merrill Chief Complaint: Pain to chronic wounds to the lower extremity Patient seen and examined at bedside, no acute complaints at this time. Patient started on ciprofloxacin yesterday based on wound culture sensativity results. Per nuse the patient was having some PICC line site irritation and itching. There was possible concern for allergic reaction and as such cirpo was stopped. I talked to the nurse today who tole me prior to the administration of the medication the patient was already having some irritation to the PICC line site. Patient has been restarted on the cipro. Benadryl has been ordered to be co- administer with the cipro. I spoke with the nurse and advised her to monitor the patient after cipro dose to watch for sings of allergic reaction. Review of Systems 10-point ROS is otherwise unremarkable Physical Examination - Vital Signs Temperature: 99.1 F Blood Pressure: 139/62 Pulse: 90 Respirations: 21 Pulse Ox (%): 99 - Physical Exam Other Physical/Emotional Findings: General: Alert, Oriented x3. HEENT: Atraumatic, Normocephalic. Neck: Supple, 2+ carotid pulse no bruit, JVD not distended. Respiratory: Clear to auscultation bilaterally, Normal air movement. Cardiovascular: No edema, Normal S1 S2. Capillary refill: <2 Seconds. Gastrointestinal: Normal bowel sounds, Soft and benign. Musculoskeletal: No clubbing, No swelling. Integumentary: Pressure ulcer (see other for discription ), Other. Other Physical/Emotional Findings: wounds: bilateral heels: DTI, purple nonblachable discoloration noted to both heels. Left lateral foot: unstageable. right second metatarsal: unstageable . Right lateral foot: DTI, nonblanching purple discolor. Right lateral/posterior leg wound: 23x5cm. Left lateral ulcer: 24x5 cm. s/p debridement on 01/17. Sacral DTI-nonblanching purple discoloration. Sacrococcyx stage 3 wound-imprving. Granulation tissue covering wound base, wound is superficial. - Studies Microbiology Data (last 24 hrs): 01/15/21 08:50 Blood - Blood Aerobic Blood Culture - Final No growth in 5 days. 01/15/21 08:50 Blood - Blood Anaerobic Blood Culture - Final No growth in 5 days. 01/15/21 08:32 Blood - Blood Aerobic Blood Culture - Final No growth in 5 days. 01/15/21 08:32 Blood - Blood Anaerobic Blood Culture - Final No growth in 5 days. Medications List Reviewed: Yes Assessment And Plan - Plan Assessment: 1. Bilateral heel deep tissue injury, right lateral foot deep tissue injury, right 2nd metatarsal deep tissue injury 2. acute/chronic Bilateral lower leg unstageable wounds 3. Left lateral foot unstageable wound 4. Sacral deep tissue injury 5. Sacral coccyx stage III wound 6. Anemia 7. Protein caloric malnutrition 8. Diabetes type 2 9. PAD 10. Renal insufficiency 11. CAD 12. COPD Plan: 1. To lower extremity deep tissue injuries: Pain area with Betadine and continue to offload. 2-3: Surgical orders in place. Dr. Ortiz following. -wound culture from bilateral lower extremities grew Pseudomonas aeruginosa and Klebsiella oxytoca. Both sensitive to ciprofloxacin, the patient started on renally adjusted dose of ciprofloxacin 200 mg q.12 hr, give Benadryl with cipro. Continue IV vancomycin renally adjusted. Appreciate vancomycin dosing adjustment from pharmacy. Patient's estimated creatinine clearance based off of training officer creatinine level, PH, height, and weight is 41.6. -Recommendation the discharge to LTAC with hyperbaric oxygen treatment therapy available to accelerate wound healing -patient will need extensive IV antibiotic treatment for 6 weeks or 2-4 weeks IV with p.o. antibiotics for 2 weeks. -Prealbumin 4.7, Important patient has adequate appetite/nutrition in order for proper wound healing. Increase protein intake. 4-5: Clean the area with normal saline, apply barrier cream, cover with foam. -medical management per primary team -continue monitor CBC and BMP -continue to monitor for signs of infection Plan of care discussed with Dr. Evangelista Thank you for consultation Physician Review: Patient Assessed, Agree with Above Assessment and Plan
[2021-01-20] MEDS: MAGNESIUM OXIDE 400 MG TAB PO SCH (20:07)
[2021-01-20] MEDS: Ciprofloxacin 200mg IV 200 MG/100 ML IV.SOLN. IV SCH ×2 (20:07→20:27)
[2021-01-20] MEDS: ATORVASTATIN 10 MG TAB PO SCH (20:07)
[2021-01-20] MEDS: INSULIN GLARGINE 100 UNITS/ML SQ SCH (20:28)
--- NOTE | 2021-01-20 20:31 | P.PN ---
Date of Service: 01/20/21 Vital Signs Temp Pulse Resp BP Pulse Ox 98.8 F 70 20 127/60 99 01/20/21 16:00 01/20/21 16:00 01/20/21 16:00 01/20/21 16:00 01/20/21 16:00 Medications Acetaminophen (Acetaminophen 500 Mg Tab) 500 mg PO Q4HP PRN PRN Reason: TEMP > 101' F Last Admin: 01/19/21 03:09 Dose: 500 mg Documented by: Alprazolam (Alprazolam 0.5 Mg Tablet) 0.5 mg PO TID PRN PRN Reason: ANXIETY Last Admin: 01/18/21 07:38 Dose: 0.5 mg Documented by: Aspirin (Aspirin Ec 81 Mg Tab) 81 mg PO DAILY [facility] Last Admin: 01/20/21 10:17 Dose: 81 mg Documented by: Atorvastatin Calcium (Atorvastatin 10 Mg Tab) 10 mg PO BEDTIME [facility] Last Admin: 01/20/21 20:07 Dose: 10 mg Documented by: Calcitriol (Calcitrol 0.25 Mcg Cap) 0.5 mcg PO DAILY [facility] Last Admin: 01/20/21 10:16 Dose: 0.5 mcg Documented by: Cholecalciferol (Vitamin D 5,000 Unit Cap) 5,000 unit PO DAILY [facility] Last Admin: 01/20/21 10:17 Dose: 5,000 unit Documented by: Dextrose (D50w 25 Gm/50 Ml Vial) 12.5 gm IV PRN PRN; Protocol PRN Reason: HYPOGLYCEMIA Last Admin: 01/18/21 08:01 Dose: 12.5 gm Documented by: Diphenhydramine HCl (Diphenhydramine 25 Mg Tab/Cap) 25 mg PO Q6H PRN PRN Reason: ITCHING Enoxaparin Sodium (Enoxaparin 40 Mg/0.4 Ml) 40 mg SQ DAILY [facility] Last Admin: 01/20/21 10:16 Dose: 40 mg Documented by: Folic Acid (Folic Acid 1 Mg Tablet) 1 mg PO DAILY [facility] Last Admin: 01/20/21 10:17 Dose: 1 mg Documented by: Gabapentin (Gabapentin 300 Mg Cap) 300 mg PO TID [facility] Last Admin: 01/20/21 20:06 Dose: 300 mg Documented by: Glucagon (Glucagon 1 Mg/Vial) 1 mg IM 1X PRN; Protocol PRN Reason: HYPOGLYCEMIA Hydromorphone HCl (Hydromorphone Hcl 0.5 Mg/0.5 Ml Inj) 0.5 mg IV Q4H PRN PRN Reason: Pain scale 5-7 (Moderate) Last Admin: 01/20/21 16:31 Dose: 0.5 mg Documented by: Vancomycin HCl 1.25 gm/ Sodium (Chloride) 250 mls @ 150 mls/hr IVPB Q36H [facility] Last Admin: 01/20/21 04:26 Dose: 250 mls Documented by: Ciprofloxacin/Dextrose (Cipro 200 Mg/100 Ml Ivpb (Premix)) 200 mg in 100 mls @ 100 mls/hr IV Q12HR [facility]; Protocol Stop: 01/27/21 23:59 Dextrose/Water (Dextrose In Water (1-Liter)) 1,000 mls @ 85 mls/hr IV .[id number] [facility] Insulin Glargine (Insulin Glargine 100 Units/Ml) 10 units SQ BEDTIME [facility] Last Admin: 01/19/21 21:29 Dose: 10 units Documented by: Insulin Human Regular (Insulin -Regular Human 50 Unit/0.5 Ml Ml) 0 unit SQ ACHS [facility]; Protocol Last Admin: 01/20/21 16:30 Dose: Not Given Documented by: L-Arginine/L-Glutamine/HMB (Antolin Packet) 1 pkt PO BID [facility] Last Admin: 01/20/21 20:08 Dose: 1 pkt Documented by: Lactobacillus Acidoph/Bulgaricus (Lactobacillus/Acidophilus Tab) 1 tab PO DAILY [facility] Magnesium Oxide (Magnesium Oxide 400 Mg Tab) 400 mg PO BEDTIME [facility] Last Admin: 01/20/21 20:07 Dose: 400 mg Documented by: Metoprolol Succinate (Metoprolol Xl 25 Mg Tab) 12.5 mg PO [id number] [facility] Last Admin: 01/20/21 06:10 Dose: 12.5 mg Documented by: Oxycodone HCl (Oxycodone *Cr* 20 Mg Tab) 80 mg PO BID [facility] Last Admin: 01/20/21 20:06 Dose: 80 mg Documented by: Pantoprazole Sodium (Pantoprazole 40mg Tablet) 40 mg PO BIDAC [facility]; Protocol Last Admin: 01/20/21 16:30 Dose: Not Given Documented by: Sodium Chloride (Flush Normal Saline 10 Ml) 10 ml IV BID [facility] Last Admin: 01/20/21 20:11 Dose: 10 ml Documented by: Thiamine HCl (Thiamine Hcl 100 Mg Tablet) 100 mg PO DAILY [facility] Last Admin: 01/20/21 10:17 Dose: 100 mg Documented by: Tramadol HCl (Tramadol Hcl 50 Mg Tab) 50 mg PO TID PRN PRN Reason: Pain scale 5-7 (Moderate) Last Admin: 01/18/21 07:37 Dose: 50 mg Documented by: Trazodone HCl (Trazodone 50 Mg Tablet) 50 mg PO BEDTIME PRN PRN PRN Reason: INSOMNIA Microbiology Results 01/15/21 08:50 Blood - Blood Aerobic Blood Culture - Final No growth in 5 days. 01/15/21 08:50 Blood - Blood Anaerobic Blood Culture - Final No growth in 5 days. 01/15/21 08:32 Blood - Blood Aerobic Blood Culture - Final No growth in 5 days. 01/15/21 08:32 Blood - Blood Anaerobic Blood Culture - Final No growth in 5 days. Assessment/ Plan: Nephrology No acute cardiac or pulmonary complaints. No CP or SOB. Feeling better today. No acute events overnight. Vitals, medications, blood work and imaging reviewed in the chart. General: In no apparent distress, Oriented x3, Cooperative HEENT: Atraumatic Neck: Supple Respiratory: Clear to auscultation bilaterally Cardiovascular: Regular rate/rhythm, Edema Gastrointestinal: Soft and benign, Non-distended Musculoskeletal: No clubbing, No contractures Integumentary: No cyanosis, Skin breakdown, Skin lesion Neurological: Normal speech Blood work reviewed in the chart. Imagings Data: EXAM DESCRIPTION: RAD - Chest Single View - 01/15/2021 9:29 am CLINICAL HISTORY: COUGH Chest pain. COMPARISON: Chest Single View dated 10/31/2020; Chest Single View dated 10/05/2020; Chest Pa And Lat (2 Views) dated 09/27/2020; Chest Single View dated 11/23/2019 FINDINGS: Portable technique limits examination quality. 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 No focal infiltrate detected. The heart is normal in size. No displaced fractures.Mild aortic atherosclerosis. Conclusions/Impression: TRINA likely due to hypovolemia CKD III -No NSAIDs -Change IVF D5W overnight Hypokalemia/ Hyperkalemia -Low potassium diet Hypocalcemia -Continue Vitamin D Hypomagnesemia -Continue MagOx HTN -Continue Metoprolol DM II with CKD -Continue Lantus Moderate malnutrition -Encourage nutrition -Recommend protein supplementation Anemia in chronic illness -Monitor H&H PAD with LE ulcers -Continue Cefepime and Vancomycin -Follow up with surgery Plan for LTAC placement for wound care.
[2021-01-20] MEDS ORDERED: D5W 1,000 ML IV SCH (21:00)
[2021-01-21] MEDS ORDERED: LACTOBACILLUS/ACIDOPHILUS TAB PO SCH (09:00)
[2021-01-21 09:05] VITALS: BP 136/60; TEMP 98.1
--- NOTE | 2021-01-21 09:36 | P.PN ---
Date of Service: 01/19/21 Subjective Arrange being made for LTAC placement. Continue with current plan of care at this time. Anticipate discharge in a.m. Review of Systems 10-point ROS is otherwise unremarkable Physical Examination - Vital Signs Reviewed - Physical Exam General: Alert, In no apparent distress, Oriented x3, Cachectic Respiratory: Clear to auscultation bilaterally Cardiovascular: Regular rate/rhythm, Normal S1 S2, No murmurs Gastrointestinal: Normal bowel sounds, Soft and benign, Non-distended Musculoskeletal: No clubbing, No swelling, Erythema, Tenderness Integumentary: Tenderness/swelling, Erythema Neurological: Sensation intact, Cranial nerves 3-12 intact Assessment & Plan - Problems (Diagnosis) (1) Diabetic ulcer of left great toe which extends to the left chavez as well as a right lower extremity Status: Resolved (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 Continue with IV antibiotic 2. Continue with local wound care; 3. Patient continues to improve. Plan for LTAC placement in the morning. 4. Hep-Lock IV and encourage oral intake 5. Monitor CBC 6. Strict blood sugar monitoring 7. Pain control 8. GI and DVT prophylaxis
--- NOTE | 2021-01-21 09:50 | P.DS ---
Discharge Date: 01/20/21 Primary Care Provider: Dr. Merrill [facility] Discharge Condition: GOOD Reason for Admission: Pain to chronic wounds to the lower extremity Consultations: Infectious Disease and General surgery - Problems (1) Diabetic ulcer of left great toe Status: Resolved (2) Femoral-popliteal artery bypass graft Status: Active (3) Hyperlipidemia Status: Active (4) Stented coronary artery Status: Active (5) Depression Status: Acute (6) Diabetes mellitus Status: Chronic Brief History of Present Illness: Patient is an 81-year-old male with history of insulin-dependent diabetes type 2, hypertension, CAD, peripheral vascular disease, GERD, chronic pain and 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 Patient presented with worsening pain to the lower extremities bilateral. Patient has chronic open wounds/ulcers to the lower extremities bilateral. These are mainly to the lateral aspect of the shins bilaterally. He also has pressure ulcers to the heels. Erythema noted to the heels. There is also a pressure ulcer noted to the buttocks region. It is been difficult to treat at home. Patient reports that he was at [facility] in then transfer to [place] over 3 weeks ago due to the wounds. He had been getting wound care primarily at home. reports treatment has been getting more difficult. Increasing pain noted. No fever noted. He denies any chest pain, shortness of breath. Patient came to the ER for further evaluation. In the ER patient was evaluated. White count 10.10. Hemoglobin 10.5. Platelet count 255. Sodium 136, potassium 3.4. BN of 25, creatinine 1.98 with a GFR 33. Glucose 169. Lactic acid 2.1, BMP 4500. Troponin 0.02. Her chair Doppler of the lower extremities showed severe peripheral vascular disease with near occlusion of the mid left superior femoral artery. Acute on chronic changes to the lower extremity wounds/ulcers noted. Patient admitted for further evaluation and treatment. The patient and family do not want him to go back to [facility]. Patient started on IV antibiotic therapy. Case discussed with surgery who was been consulted. Hospital Course: Patient is clinically doing well with no new complaints. At this time, patient is stable and able to get transfer to long-term acute care facility. Patient had wound debrided by Dr. Ortiz as well as wound healing Center. Patient was seen by infectious disease doctor for antibiotic recommendation. Patient clinically doing well and is stable for transfer to a long-term acute care facility for continued wound care, intravenous antibiotic therapy, and physical therapy to strengthen himself. Vital Signs/Physical Exam: Temp Pulse Resp BP Pulse Ox 98.1 F 63 20 136/60 97 01/21/21 09:34 01/21/21 09:34 01/21/21 09:34 01/21/21 09:34 01/21/21 09:34 General: Alert, In no apparent distress, Oriented x3 Other Physical/Emotional Findings: General: Alert, Oriented x3. HEENT: Atraumatic, Normocephalic. Neck: Supple, 2+ carotid pulse no bruit, JVD not distended. Respiratory: Clear to auscultation bilaterally, Normal air movement. Cardiovascular: No edema, Normal S1 S2. Capillary refill: <2 Seconds. Gastrointestinal: Normal bowel sounds, Soft and benign. Musculoskeletal: No clubbing, No swelling. Integumentary: Pressure ulcer (see other for discription ), Other. Other Physical/Emotional Findings: wounds: bilateral heels: DTI, purple nonblachable discoloration noted to both heels. Left lateral foot: unstageable. right second metatarsal: unstageable . Right lateral foot: DTI, nonblanching purple discolor. Right lateral/posterior leg wound: 23x5cm. Left lateral ulcer: 24x5 cm. s/p debridement on 01/17. Laboratory Data at Discharge: WBC 6.40 K/uL (4.3-10.9) 01/18/21 05:47 Hgb 8.6 g/dL (13.6-17.9) L 01/18/21 05:47 Hct 25.6 % (39.6-49.0) L 01/18/21 05:47 Plt Count 198 K/uL (152-406) 01/18/21 05:47 PT 16.9 SECONDS (9.5-12.5) H 01/15/21 08:32 INR 1.46 01/15/21 08:32 Sodium 144 mmol/L (136-145) 01/20/21 03:14 Potassium 5.1 mmol/L (3.5-5.1) 01/20/21 03:14 BUN 25 mg/dL (7-18) H 01/20/21 03:14 Creatinine 1.51 mg/dL (0.55-1.3) H 01/20/21 03:14 Glucose 91 mg/dL (74-106) 01/20/21 03:14 Magnesium 2.0 mg/dL (1.8-2.4) 01/20/21 03:14 Total Bilirubin 0.9 mg/dL (0.2-1.0) 01/15/21 08:32 AST 17 U/L (15-37) 01/15/21 08:32 ALT 13 U/L (12-78) 01/15/21 08:32 Alkaline Phosphatase 94 U/L (45-117) 01/15/21 08:32 Triglycerides 79 mg/dL (<150) 01/16/21 03:11 Cholesterol 81 mg/dL (<200) 01/16/21 03:11 HDL Cholesterol 31 mg/dL (40-60) L 01/16/21 03:11 Cholesterol/HDL Ratio 2.61 01/16/21 03:11 Home Medications: RX: Alprazolam [Xanax] 1 mg PO TID PRN 10/05/20 RX: Gabapentin 600 mg PO BEDTIME 10/05/20 RX: Metoclopramide [Reglan*] 10 mg PO BID PRN 10/05/20 RX: Metoprolol Succinate [Toprol Xl*] 12.5 mg PO DAILY 10/05/20 RX: Ondansetron [Zuplenz] 8 mg PO Q4H PRN 10/05/20 RX: Oxycodone HCl [Oxycontin] 80 mg PO TID PRN 10/05/20 RX: Simvastatin 20 mg PO BEDTIME 10/05/20 RX: Trazodone HCl 100 mg PO BEDTIME 10/05/20 RX: Pantoprazole [Protonix Tab*] 40 mg PO BID 30 Days #60 tab 10/06/20 RX: Calcitrol [Rocaltrol*] 0.5 mcg PO DAILY #30 cap 01/20/21 RX: Cholecalciferol (Vitamin D3) [Vitamin D 5,000 IU Cap*] 5,000 unit PO DAILY #30 cap 01/20/21 RX: Insulin Glargine Human [Lantus*] 10 units SQ BEDTIME #2 syr 01/20/21 RX: Antolin [Antolin*] 1 pkt PO BID #60 powd.pack 01/20/21 RX: Thiamine HCl [Vitamin B-1*] 100 mg PO DAILY #30 tablet 01/20/21 RX: traMADol HCL [Ultram*] 50 mg PO TID PRN #30 tab 01/20/21 New Medications: RX: Antolin [Antolin*] 1 pkt PO BID #60 powd.pack RX: Insulin Glargine Human [Lantus*] 10 units SQ BEDTIME #2 syr RX: Calcitrol [Rocaltrol*] 0.5 mcg PO DAILY #30 cap RX: traMADol HCL [Ultram*] 50 mg PO TID PRN #30 tab PRN Reason: Pain Scale 5-7 (Moderate) RX: Thiamine HCl [Vitamin B-1*] 100 mg PO DAILY #30 tablet RX: Cholecalciferol (Vitamin D3) [Vitamin D 5,000 IU Cap*] 5,000 unit PO DAILY #30 cap Physician Discharge Instructions: OK TO discharge to [facility] CALL or TEXT DR. PRUITT AT [phone] IF ANY QUESTIONS REGARDING HOSPITAL STAY. PLEASE CALL THE FLOOR AT [phone] IF ANY MEDICATION OR NURSING QUESTIONS. Diet: ADA Activity: Bedrest Followup: Barrington Merrill MD [Primary Care Provider] - Time spent managing pt's care (in minutes): 35
== END 2021-01-20 20:30 | DRG 264 ==
LOC: ER 07:26 → ERHOLD 12:13 → 2ND 13:59
PROVIDERS: ADMIT Family Medicine; ATTEND Hospitalist
PROC: 0JBN0ZZ Excision of Right Lower Leg Subcutaneous Tissue and Fascia, Open Approach (ICD-10-PCS; 2021-01-16)
PROC: 0JBP0ZZ Excision of Left Lower Leg Subcutaneous Tissue and Fascia, Open Approach (ICD-10-PCS; 2021-01-16)
PROC: 0JBQ0ZZ Excision of Right Foot Subcutaneous Tissue and Fascia, Open Approach (ICD-10-PCS; 2021-01-16)
PROC: 0JBR0ZZ Excision of Left Foot Subcutaneous Tissue and Fascia, Open Approach (ICD-10-PCS; principal; 2021-01-16 13:15)
DX: E11.52 Type 2 diabetes mellitus with diabetic peripheral angiopathy with gangrene (principal); L89.153 Pressure ulcer of sacral region, stage 3; I96 Gangrene, not elsewhere classified; E44.0 Moderate protein-calorie malnutrition; N17.9 Acute kidney failure, unspecified; E11.621 Type 2 diabetes mellitus with foot ulcer; F17.210 Nicotine dependence, cigarettes, uncomplicated; I25.10 Atherosclerotic heart disease of native coronary artery without angina pectoris; K21.9 Gastro-esophageal reflux disease without esophagitis; G89.29 Other chronic pain; E78.5 Hyperlipidemia, unspecified; I12.9 Hypertensive chronic kidney disease with stage 1 through stage 4 chronic kidney disease, or unspecified chronic kidney disease; N18.30 Chronic kidney disease, stage 3 unspecified; E11.22 Type 2 diabetes mellitus with diabetic chronic kidney disease; F41.9 Anxiety disorder, unspecified; N28.9 Disorder of kidney and ureter, unspecified; J44.9 Chronic obstructive pulmonary disease, unspecified; E87.6 Hypokalemia; E83.51 Hypocalcemia; D63.8 Anemia in other chronic diseases classified elsewhere; L97.529 Non-pressure chronic ulcer of other part of left foot with unspecified severity; L89.626 Pressure-induced deep tissue damage of left heel; L89.616 Pressure-induced deep tissue damage of right heel; L89.896 Pressure-induced deep tissue damage of other site; F32.9 Major depressive disorder, single episode, unspecified; E83.42 Hypomagnesemia; I83.009 Varicose veins of unspecified lower extremity with ulcer of unspecified site; B96.1 Klebsiella pneumoniae [K. pneumoniae] as the cause of diseases classified elsewhere; B96.5 Pseudomonas (aeruginosa) (mallei) (pseudomallei) as the cause of diseases classified elsewhere; I25.2 Old myocardial infarction; Z88.5 Allergy status to narcotic agent; Z68.24 Body mass index [BMI] 24.0-24.9, adult; Z79.01 Long term (current) use of anticoagulants; Z96.651 Presence of right artificial knee joint; Z89.029 Acquired absence of unspecified finger(s); Z89.022 Acquired absence of left finger(s); Z95.5 Presence of coronary angioplasty implant and graft; Z90.49 Acquired absence of other specified parts of digestive tract; Z79.4 Long term (current) use of insulin; Z79.899 Other long term (current) drug therapy; Z20.822 Contact with and (suspected) exposure to COVID-19
CPT/HCPCS: 36415; 71045; 80048; 80061; 80076; 80202; 81001; 82570; 82947; 83605; 83735; 83880; 83935; 84134; 84156; 84300; 84439; 84443; 84484; 85025; 85610; 87040; 87070; 87077; 87186; 87205; 88304; 90471; 90714; 93005; 93306; 93925; 96361; 96365; 96366; 96367; 96375; 99285; J0692; J0744; J1170; J1650; J1815; J2405; J2543; J2704; J3010; J3370; J3475; J3590; J7030; J7050; U0003

== ENCOUNTER 2021-01-23 12:47 | Inpatient (IN) | payer OTHER, BC ==
--- OUTSIDE RECORDS SUMMARY | 2021-01-23 12:54 | XMS REPORT | Continuity of Care Document ---
:1940 Author Organization [facility] t Address [address] [place] [address] Care Team Providers Name Role Phone Alex [...] Expiration Date Sour ce Number MEDICAREMEDICARE A [id number] 1998 MARGARITA Bella [id number] 1997-P 00:00:00 - Medical resentMedicare Center BLUE CROSS/BLUE [id number] 2017 MARGARITA MonetBCBS PPO POS EPO 0 00:00:00 - Medical [id number]/ Ce nter [id number], [place] [id number] Problems Condition Condition Condition Status Onset Resolution [...] 00:00: Medical involving involving 00 [facility] [place] coronary artery of artery of [place] heart heart without without angina angina pectoris [...] 2019-07-23 Memoria N 8-24 22:09:00 l 00:00: [place] HYPOTENSIO 00 N Active 07/04/2019 [facility] DEHYDRATIO Diagnosis Active 2019-07-04 Memoria N, RENAL 07-04 17:34:00 l FAILURE, 00:00: [place] HYPOTENSIO DEHYDRATIO 00 N N, RENAL FAILURE, HYPOTENSIO N Active 07/04/2019 [facility] PVD Diagnosis Active 2019-07-06 Mem oria 8 21:56:00 l PVD 00:00: [place] 00 Active 06/22/2019 [facility] UNK Diagnosis Active 2019-06-23 Mem oria 812 19:27:00 l UNK 00:00: Jeremias 00 Active 06/22/2019 [facility] Dehydratio Problem 2019-07-08 M emoria n 22:19:55 l Jeremias Dehydratio n 07/08/2019 [facility] Chronic Problem Resolve 2020-07-21 Mem oria pain d 21:21:18 l (finding) Chronic Herm jonas pain (finding) Resolved Problem 07/21/2020 legs and feet, back [facility]ly [facility] Cervical Problem Active 2020-07-21 Mem oria spondylosi 21:21:18 l s Cervical Telly n (disorder) spondylosi s (disorder) Active Problem 07/21/2020 [facility] Cervico-oc Problem Active 2020-07-21 M emoria cipital 21:21:18 l neuralgia Jeremias (finding) Cervico-oc cipital neuralgia (finding) Active Problem 07/21/2020 [facility] Chronic Problem Active 2020-07-21 Gabe carolynn back pain 21:21:18 l (disorder) Chronic Her bruno back pain (disorder) Active Problem 07/21/2020 [facility] Chronic Problem Active 2020-07-21 Gabe carolynn kidney 21:21:18 l disease Chronic Telly n stage 3 kidney (disorder) disease stage 3 (disorder) Active Problem 07/21/2020 [facility] Confusiona Problem Active 2020-07-21 M emoria l state 21:21:18 l (disorder) Telly n Confusiona l state (disorder) Active Problem 07/21/2020 [facility] Coronary Problem Active 2020-07-21 [facility] oria arterioscl 21:21:18 l erosis Coronary Telly n (disorder) arterioscl erosis (disorder) Active Problem 07/21/2020 [facility] Diabetes Problem Active 2020-07-21 [facility] oria mellitus 21:21:18 l (disorder) Diabetes He rmann mellitus (disorder) Active Problem 07/21/2020 [facility] Essential Problem Active 2020-07-21 Me moria hypertensi 21:21:18 l on Jeremias (disorder) Essential hypertensi on (disorder) Active Problem 07/21/2020 [facility] Gastroesop Problem Active 2020-07-21 M emoria hageal 21:21:18 l reflux Jeremias disease Gastroesop (disorder) hageal reflux disease (disorder) Active Problem 07/21/2020 [facility] Generalize Problem Active 2020-07-21 M emoria d anxiety 21:21:18 l disorder Jeremias (disorder) Generalize d anxiety disorder (disorder) Active Problem 07/21/2020 [facility] Headache Problem Active 2020-07-21 Mem oria (finding) 21:21:18 l Headache Telly n (finding) Active Problem 07/21/2020 [facility] Hyperlipid Problem Active 2020-07-21 M emoria emia 21:21:18 l (disorder) Telly n Hyperlipid emia (disorder) Active Problem 07/21/2020 [facility] Insomnia Problem Active 2020-07-21 Mem oria (disorder) 21:21:18 l Insomnia Telly n (disorder) Active Problem 07/21/2020 [facility] Obstructiv Problem Active 2020-07-21 M emoria e sleep 21:21:18 l apnea Jeremias syndrome Obstructiv (disorder) e sleep apnea syndrome (disorder) Active Problem 07/21/2020 [facility] Osteoarthr Problem Active 2020-07-21 M emoria itis 21:21:18 l (disorder) Telly n Osteoarthr itis (disorder) Active Problem 07/21/2020 [facility] Peripheral Problem Active 2020-07-21 M emoria nerve 21:21:18 l disease [place] (disorder) Peripheral nerve disease (disorder) Active Problem 07/21/2020 [facility] Tremor Problem Active 2020-07-21 Memor ia (finding) 21:21:18 l Tremor Jeremias (finding) Active Problem 07/21/2020 [facility] HYPOTENSIO Diagnosis Active 2019-07-23 Memoria N, 22:09:00 l UNSPECIFIE Telly n D HYPOTENSIO N, UNSPECIFIE D Active [facility] DEHYDRATIO Diagnosis Active 2019-07-04 Memoria N 17:34:00 l Jeremias DEHYDRATIO N Active [facility] PERIPHERAL Diagnosis Active 2019-07-06 Memoria VASCULAR 21:56:00 l DISEASE, Jeremias UNSPECIFIE PERIPHERAL D VASCULAR DISEASE, UNSPECIFIE D Active [facility] Nerve Problem Resolve 1995-0 2020-07-21 2020-07-21 Memoria injury d 8-12 21:21:18 21:21:18 l (disorder) Nerve 00:00: Pilar nn injury 00 (disorder) Resolved 06/22/1995 Problem 07/21/2020 [facility] Hypertensi Problem Resolve 1987-0 2020-07-21 2020-07-21 Memoria ve d 8-12 21:21:18 21:21:18 l disorder, 00:00: Jeremias systemic Hypertensi 00 arterial ve (disorder) disorder, systemic arterial (disorder) Resolved 06/22/1988 Problem 07/21/2020 [facility] Allergies, Adverse Reactions, Alerts Allergy Allergy [...] Allergy [facility]01 [facility] 00 [facility] Morphine Drug Active 2019-[address] [facility] Allergy 01-01 [facility] 00 [facility] morphine morphine Active Memori a l Jeremias Dilaudid Dilaudid Active Memori a l Jeremias iodine iodine Active Memoria l Jeremias Family History Family Member Diagnosis Comments Start Date Stop Date Source Natural father Heart disease [facility] Natural mother Heart disease [facility] Social History Social Habit Start Date Stop Date Quantity Comments Source Sex Assigned At [facility] Alcohol intake 2020-11-02 2020-11-02 Ex-drinker [facility] es - 00:00:00 00:00:00 (finding) [facility] Social History 2020-07-19 2020-07-19 Bethany pang 15:00:00 15:00:00 Smoking Status Start Date Stop Date Source Social History 2019-07-04 22:41:06 Bethany bruno Medications Ordered Filled Start Stop Current Ordering Indication Dosage Frequency Signature Comments Components Source Medication Medication Date Date Medication? Clinician (SIG) Name Name ergocalcife 2019-11- No [id number] Q7D Take [address] [facility]l 12-06 capsule [facility] - (ERGOCALCIF 00:00: 23:59 (50,000 Me dical YUSEF) 1,250 00 :00 [facility] Center mcg (50,000 total) by unit) mouth once capsule a week for 28 days. ergocalcife 2019-11 2020- No [id number] Q7D Take [address] rol [...] Q.5D Take [facility]QU[facility] 2-05 11-27 tablet [facility] - 2.5 mg Tab 00:00: 00:00 (2.5 mg Med ical tablet 00 :00 total) by [facility] mouth 2 (two) times daily. DULoxetine 2020-0 Yes 30 mg = 1 Me moria 30 mg oral 5-06 cap, PO, l delayed 15:03: Daily, # Telly n release 00 30 cap, 6 capsule Refill(s), Pharmacy: [facility] DULoxetine 2019-0 2020- No 1{capsu QD Take [address] (CYMBALTA) 03-16 12 le} capsule by kes - 30 MG 00:00: 00:00 mouth Medical capsule 00 :00 daily. [facility] Acetaminoph 2019-0 Yes 1 cap, PO, Memoria [...] tab, PO, l Tablet 22:03: TID, 0 [place] 00 Refill(s) Metoclopram 2019-0 Yes 10 mg = 1 M emoria geoff 10 MG 2-06 tab, PO, l Oral Tablet 22:03: Daily, 0 He rmann 00 Refill(s) duloxetine 2019-0 Yes 20 mg = 1 Me moria 20 MG 2-06 cap, PO, l Enteric 18:34: Daily, # Telly n Coated 00 30 cap, 3 Capsule Refill(s), [Cymbalta] Pharmacy: [facility] citalopram 2019-0 No 0 Memoria 40 mg oral 2-06 Refill(s) l tablet 18:30: Jeremias 00 Zofran 2019-0 No Notes: Memoria 8-26 [...] Daily, # 30 tab, 0 Refill(s), Pharmacy: [facility] Aspirin 81 Yes 81 mg = 1 Me moria MG Enteric 8- tab, PO, l Coated 19:30: Daily, # [place] Tablet 00 30 tab, 0 Refill(s), Pharmacy: [facility] Docusate Yes 100 mg = 1 Mem oria Sodium 100 8-22 cap, PO, l MG Oral 19:30: BID, # 60 Pilar nn Capsule 00 cap, 0 Refill(s), Pharmacy: [facility] Famotidine Yes 20 mg = 1 Me moria 20 MG Oral 8-22 tab, PO, l Tablet 19:30: BID, # 60 Telly n 00 tab, 0 Refill(s), Pharmacy: [facility] metoprolol Yes 12.5 mg = Me moria 25 mg oral 07-02 0.5 tab, l tablet, 19:30: PO, Daily, Herm jonas extended 00 # 15 tab, release 0 Refill(s), Pharmacy: [facility] polyethylen Yes See Memori a e glycol 07-02 Instructio l 3350 oral 19:30: ns, PRN Pilar nn kit 00 Constipati on, PO BID, # 30 kit, 0 Refill(s), Pharmacy: [facility] sennosides, Yes 17.2 mg = M emoria FDC 8.6 MG 07-02 2 tab, PO, l Oral Tablet 19:30: Bedtime, X [place] 00 14 day, # 28 tab, 0 Refill(s), Pharmacy: [facility] Amiodarone No Notes: Memor ia 07-02 (Same as: l 14:00: Cordarone) [place] 00 AMIODarone No 2 mg/ml. Me moria [...] moria 06-30 "Recommend l 21:50: ation: Use [place] 00 an in-line filter during administra tion for continuous infusions to reduce the incidence of phlebitis" (Same as Codarone) MEDICATION WASTE Product Size: 150 mg Product Wasted: ___ mg Furosemide No Notes: Memor ia 8-20 (Same as: l 20:38: Lasix) Miralax No Notes: Memoria 8-20 Dissolve l [...] 0 Fleet Enema No 12 years, Memoria 8- Pediatric l 15:03: Dosing, 0 citalopram No [...] -17 With food l 22:51: or milk [place] 00 (Same as: Xanax) potassium No Notes: Memori a phosphate-s 17 (Same as: l odium 16:00: Phos-NaK) Jeremias [...] 2, m2, 0 Reglan No Notes: Memoria 8- (Same as: l 14:51: Reglan) Jeremias 00 Potassium No Notes: Memori a Chloride 06-27 (Same as: l 14:51: KCL) [place] 00 Infuse no faster than 10 mEq/hr if given peripheral ly. sodium No Notes: Memoria phosphate - Infuse l 14:51: over 4 [place] 00 hour. Do not infuse phosphorou s [...] as: l 14:51: Mag-Ox 400) Magnesium oxide 668cc=061d g elemental magnesium Dose=____m g magnesium oxide [...] CDT, Indication : Non-hemorr hagic shock ePHEDrine 0 No Route: IV, Me moria (ANES) 06-25 Drug form: l 23:25: INJ, ONCE, Stop date: 06/25/19 18:25:00 CDT Norepinephr 0 No Notes: Gabe carolynn ine 06-25 Same as: l 23:14: Levophed. Administer by either central venous catheter or peripheral ly-inserte d central catheter (PICC) line. Concentrat ion: 0.032 mg / mL Hydralazine 0 No 10 mg, Gabe carolynn 06-25 Route: l 22:57: IVP, [place] 00 Q20Min, Dosing Weight 83.182, kg, PRN Elevated BP, Start date: 06/25/19 17:57:00 CDT, Duration: 2 doses or times, Stop date: Limited # of times Labetalol 0 No 10 mg, Memori a 06-25 Route: l 22:57: IVP, [place] 00 Q5Min, Dosing Weight 83.182, kg, PRN Elevated BP, Start date: 06/25/19 17:57:00 CDT, Duration: 5 doses or times, Stop date: Limited # of times Metoprolol 0 No 1 mg, Memori a 06-25 Route: l 22:57: IVP, [place] 00 Q5Min, Dosing Weight 83.182, kg, PRN [...] oria ne 8 Route: l 22:57: IVP, Jeremias 00 Q5Min, [...] 06-25 Route: l 22:57: IVP, Jeremias 00 Q2MIN, Dosing Weight 83.182, kg, PRN Narcotic Reversal, Start date: 06/25/19 17:57:00 CDT, Duration: 8 doses or times, Stop date: Limited # of times Ondansetron 2019-0 No 4 mg, Memor ia 06-25 Route: l 22:57: IVP, ONCE, [place] Dosing Weight 83.182, kg, PRN Nausea & Vomiting, Start date: 06/25/19 17:57:00 CDT glycopyrrol 2019-0 No Route: IV, Memoria ate (ANES) - Drug form: l 22:18: INJ, ONCE, Stop [...] 2019-0 No 1,000 mL, Memor ia Chloride 8-15 Rate: 25 l 0.0014 17:06: ml/hr, [place] MEQ/ML / 00 Infuse Potassium over: 40 [...] ___ mg sennosides, No Notes: Gabe carolynn FDC 14 (Same as: l 02:00: Senokot) Jeremias 200 [...] = 1 M emoria 600 MG Oral 06-24 tab, PO, l Tablet 00:41: TID, # [...] Roxicodone Herm jonas Oral Tablet ) Dextrose 2018-0 No 12.5 gm, Memor ia 50% Syringe 06-23 25 mL, l 22:47: Route: Jeremias IVP, Drug Form: INJ, Dosing Weight 83.182, kg, PRN, PRN Blood Glucose Results, Start date: 06/23/19 17:47:00 CDT, Duration: 30 day, Stop date: 07/23/19 17:46:00 CDT, 0 Glucagon 2018-0 No 1 mg, Memoria 06-23 Route: IM, l 22:47: Drug form: Jeremias 00 PDR/INJ, PRN, Dosing Weight 83.182, kg, [...] Gabe carolynn 06-23 Route: l 20:27: IVP, [place] 00 Q20Min, Dosing Weight 83.182, kg, PRN Elevated BP, Start date: 06/23/19 15:27:00 CDT, Duration: 2 doses or times, Stop date: Limited # of times Labetalol 2019-0 No 10 mg, Memori a 06-23 Route: l 20:27: IVP, [place] 00 Q5Min, Dosing Weight 83.182, kg, PRN [...] en 06-23 Route: l 20:27: IVPB, Drug [place] 00 form: INJ, ONCE, Dosing Weight 83.182, [...] 06-23 SEND TO l MG/ML 16:00: PRE-OP [place] Inhalant 00 SEND TO Solution PRE-OP SEND TO PRE-OP NS 1,000 mL No 1,000 mL, M emoria 06-23 Rate: 150 l 15:01: ml/hr, Infuse over: 6.7 hr, Route: IV, Dosing Weight 84.545 kg, Total Volume: 1,000, Start date: 06/23/19 10:01:00 CDT, Duration: 30 day, Stop date: 07/23/19 10:00:00 CDT, 2.06, m2, 0 oxcarbazepi 2017-11 Yes 150 mg = 1 Memoria ne 150 MG -29 tab, PO, l Oral Tablet 20:04: Bedtime, # Jeremias [Trileptal] 00 30 tab, 3 Refill(s), Pharmacy: [facility] gabapentin 2017-11 Yes 600 mg [...] emoria 11-11 Daily, 0 l 17:59: Refill(s) [place] 00 Diclofenac 2017-11 Yes PO, 0 Memori a 11-11 Refill(s) l 17:59: Jeermias 00 Docusate 2017-11 Yes 100 mg = 1 Mem oria Sodium 100 11-11 cap, PO, l MG Oral 17:59: Daily, 0 Telly n Capsule 00 Refill(s) Metoclopram 2017-11 Yes 10 mg, PO, Memoria geoff 11-11 BID, 0 l 17:59: Refill(s) [place] 00 Alprazolam 2017-11 Yes 1 mg, PO, Me moria 11-11 TID, PRN l 17:59: anxity, 0 Jeremias 00 Refill(s) Aspirin 2017-11 Yes 81 mg, PO, Gabe carolynn 11-11 Daily, 0 l 17:59: Refill(s) [place] 00 POLYETHYLEN 2017-11 Yes 17 gm, PO, Memoria E GLYCOL 11-11 Daily, # l 3350 142 17:59: 255 gm, 0 Herm jonas MG/ML Oral 00 Refill(s) Solution [Miralax] Trazodone 2017-11 Yes 50 mg, PO, Me moria 11-11 Bedtime, 0 l 17:59: Refill(s) [place] oxyCODONE 2017-11 Yes 80 mg = 1 [...] 11-11 Instructio l MG/MG 17:59: ns, 2 [place] Topical Gel 00 mg-4mgTOP QID affected area, 0 Refill(s) Lisinopril 2017-11 Yes 10 mg, PO, M emoria 11-11 Daily, 0 l 17:59: Refill(s) [place] 00 Simvastatin 2017-11 Yes 20 mg, PO, Memoria 11-11 Daily, 0 l 17:59: Refill(s) [place] 00 3 ML 2017-11 Yes 600 mg, 0 Memoria Insulin 11-11 Refill(s) l Lispro 100 17:59: [place] UNT/ML Pen 00 Injector [Humalog] Ondansetron 2017-11 Yes 8 mg, PO, M emoria 11-11 Q8H, PRN l 17:59: nausea, 0 Jeremias 00 Refill(s) Reglan 2017-11 No 10 mg, PO, Memor ia 11-11 BID, 0 l 17:59: Refill(s) [place] 00 Vital Signs Vital Name Observation Time Observation Value Comments Source Systolic blood 2020-11-05 11:20:00 160 mm[Hg] [facility] Diastolic blood 2020-11-05 11:20:00 71 mm[Hg] [facility] Heart rate 2020-11-05 11:20:00 90 /min [facility] Body temperature 2020-11-05 11:20:00 36.33 Alivia [facility] Respiratory rate 2020-11-05 11:20:00 18 /min [facility] Oxygen saturation in 2020-11-05 11:20:00 92 /min [facility] - Arterial blood by Medical Ce nter Pulse oximetry Body height 2020-11-01 19:07:00 172.7 cm [facility] Body weight 2020-11-01 19:07:00 78.472 kg [facility] BMI 2020-11-01 19:07:00 26.30 kg/m2 [facility] Systolic (mm Hg) 2020-03-16 14:30:00 Agbe rial Jeremias Diastolic (mm Hg) 2020-03-16 14:30:00 Mem orial [place] Heart Rate 2020-03-16 14:30:00 [facility] Jeremias Respitory Rate 2020-03-16 14:30:00 Memori al [place] Temperature Oral (F) 2020-03-16 14:30:00 98.2 F [facility] Jeremias Height 2020-03-16 14:30:00 177.8 cm [facility] [place] Weight 2020-03-16 14:30:00 [facility] [place] BMI Calculated 2020-03-16 14:30:00 Memori al Jeremias Systolic (mm Hg) 2019-12-17 17:47:00 Gabe rial [place] Diastolic (mm Hg) 2019-12-17 17:47:00 Mem orial Jeremias Heart Rate 2019-12-17 17:47:00 [facility] [place] Respitory Rate 2019-12-17 17:47:00 Memori al Jeremias Height 2019-12-17 17:47:00 170.18 cm [facility] Jeremias Weight 2019-12-17 17:47:00 [facility] Jeremias BMI Calculated 2019-12-17 17:47:00 Memori al Jeremias Systolic (mm Hg) 2019-11-13 14:55:00 Gabe rial Jeremias Diastolic (mm Hg) 2019-11-13 14:55:00 Mem orial Jeremias Heart Rate 2019-11-13 14:55:00 [facility] [place] Respitory Rate 2019-11-13 14:55:00 Memori al Jeremias Height 2019-11-13 14:55:00 170.18 cm [facility] Jeremias Weight 2019-11-13 14:55:00 [facility] Jeremias BMI Calculated 2019-11-13 14:55:00 Memori al [place] Respitory Rate 2019-07-06 20:00:00 Memori al [place] Systolic (mm Hg) 2019-07-06 20:00:00 Gabe rial Jeremias Diastolic (mm Hg) 2019-07-06 20:00:00 Mem orial Jeremias Respitory Rate 2019-07-06 19:00:00 Memori al Jeremias Systolic (mm Hg) 2019-07-06 19:00:00 Gabe rial [place] Diastolic (mm Hg) 2019-07-06 19:00:00 Mem orial [place] Respitory Rate 2019-07-06 18:00:00 Memori al Jeremias Systolic (mm Hg) 2019-07-06 18:00:00 Gabe rial [place] Diastolic (mm Hg) 2019-07-06 18:00:00 Mem orial Jeremias Temperature Oral (F) 2019-07-06 17:00:00 98.4 F [facility] Jeremias Temperature Oral (F) 2019-07-06 13:00:00 98.6 F [facility] Jeremias Temperature Oral (F) 2019-07-06 09:00:00 98.1 F [facility] Jeremias Height 2019-07-04 22:35:00 175.26 cm [facility] Jeremias Weight 2019-07-04 22:35:00 [facility] [place] BMI Calculated 2019-07-04 22:35:00 Memori al Jeremias Respitory Rate 2019-07-02 20:00:00 Memori al Jeremias Systolic (mm Hg) 2019-07-02 20:00:00 Gabe rial [place] Diastolic (mm Hg) 2019-07-02 20:00:00 Mem orial [place] Respitory Rate 2019-07-02 19:00:00 Memori al [place] Systolic (mm Hg) 2019-07-02 19:00:00 Gabe rial [place] Diastolic (mm Hg) 2019-07-02 19:00:00 Mem orial Jeremias Respitory Rate 2019-07-02 17:00:00 Memori al [place] Systolic (mm Hg) 2019-07-02 17:00:00 Gabe rial [place] Diastolic (mm Hg) 2019-07-02 17:00:00 Mem orial Jeremias Temperature Oral (F) 2019-07-02 17:00:00 98.6 F [facility] [place] Temperature Oral (F) 2019-07-02 13:00:00 98.7 F [facility] Jeremias Height 2019-07-02 10:02:00 170.18 cm [facility] Jeremias Temperature Oral (F) 2019-07-02 09:00:00 99.2 F [facility] Jeremias Height 2019-07-01 18:14:00 170.18 cm [facility] Jeremias Height 2019-07-01 09:16:00 170.18 cm [facility] Jeremias Heart Rate 2019-06-25 16:38:00 [facility] [place] Heart Rate 2019-06-25 12:53:00 [facility] [place] Heart Rate 2019-06-25 07:51:00 [facility] [place] Weight 2019-06-23 15:01:00 [facility] [place] BMI Calculated 2019-06-23 15:01:00 Memori al Jeremias BMI Calculated 2018-10-23 15:03:00 Memori al Jeremias Height 2018-10-23 15:03:00 177.8 cm [facility] Jeremias Weight 2018-10-23 15:03:00 [facility] [place] Systolic (mm Hg) 2018-10-23 15:03:00 Gabe rial Jeremias Diastolic (mm Hg) 2018-10-23 15:03:00 Mem orial Jeremias Heart Rate 2018-10-23 15:03:00 [facility] [place] BMI Calculated 2018-10-09 19:30:00 Memori al Jeremias Weight 2018-10-09 19:30:00 [facility] Jeremias Height 2018-10-09 19:30:00 177.8 cm [facility] [place] Respitory Rate 2018-10-09 19:30:00 Memori al [place] Heart Rate 2018-10-09 19:30:00 [facility] [place] Systolic (mm Hg) 2018-10-09 19:30:00 Gabe rial [place] Diastolic (mm Hg) 2018-10-09 19:30:00 Mem orial [place] BMI Calculated 2018-09-11 16:37:00 Memori al Jeremias Weight 2018-09-11 16:37:00 [facility] Jeremias Heart Rate 2018-09-11 16:37:00 [facility] Jeremias Height 2018-09-11 16:37:00 177.8 cm [facility] Jeremias Systolic (mm Hg) 2018-09-11 16:37:00 Gabe rial [place] Diastolic (mm Hg) 2018-09-11 16:37:00 Mem orial [place] Procedures Procedure Date / Time Performed Performing Clinician Soursiva e POCT-GLUCOSE METER 2020-11-05 11:31:00 Lam Moreno [facility] CBC W/PLT COUNT & AUTO 2020-11-05 11:06:00 [facility] POCT-GLUCOSE METER 2020-11-05 08:26:00 Lam Moreno [facility] POCT-GLUCOSE METER 2020-11-04 21:03[facility] 2020-11-04 15:51:[address] POCT-GLUCOSE METER 2020-11-04 11:16:[address] POCT-GLUCOSE METER 2020-11-04 04:52:[address] POCT-GLUCOSE METER 2020-11-03 21:00:[address] POCT-GLUCOSE METER 2020-11-03 15:59:[address] POCT-GLUCOSE METER 2020-11-03 11:29:[address] POCT-GLUCOSE METER 2020-11-03 07:35:[address] CBC (HEMOGRAM ONLY) 2020-11-03 06:14:00 Joaquin Chapman [facility] BASIC METABOLIC PANEL 2020-11-03 06:14:00 Joaquin Chapman [address] POCT-GLUCOSE METER 2020-11-02 21:00:[address] POCT-GLUCOSE METER 2020-11-02 16:08:[address] [facility] POCT-GLUCOSE METER 2020-11-02 12:22:[address] [facility] POCT-GLUCOSE METER 2020-11-02 10:48:[address] [facility] FL FLUORO NON-SPECIFIC 2020-11-02 08:51:[address] [facility] - UP TO 1 HOUR [facility] RYAN ROLLINS 2020-11-02 07:31:00 Joaquin Chapman [facility] PROCEDURE W/ C-ARM 2020-11-02 07:31:00 Joaquin Chapman [facility] POCT-GLUCOSE METER 2020-11-02 06:33:00 Davis, Elenita Koch [facility] CBC (HEMOGRAM ONLY) 2020-11-02 03:32[facility] 2020-11-02 03:32:00 Joaquin Chapman I [facility] (7) [facility] TSH/FREE T4 IF INDICATED 2020-11-02 03:32:00 [facility] VITAMIN B12 AND FOLATE 2020-11-02 03:32:00 [facility] POCT-GLUCOSE METER 2020-11-01 21:44:00 Davis, Elenita Koch [facility] ABORH, MANUAL 2020-11-01 16:43:00 Neema Stark [facility] TYPE AND SCREEN, 2020-11-01 16:19:00 AtassJameel sam [facility] POCT-GLUCOSE METER 2020-11-01 13:03:00 Davis, Elenita Koch [facility] NM MYOCARDIAL PERFUSION 2020-11-01 11:50:00 Alma Roas Schwartz [facility] - PET/CT (REST & STRESS) Medical C enter ECG 12-LEAD 2020-11-01 11:34:14 Unknown, Hl7 Doctor [facility] TREADMILL 2020-11-01 11:34:12 Unknown, Hl7 Doctor [facility] - TOLERANCE(NON-NUCLEAR Medical Ce nter TREADMILL) 2D ECHO W/ DOPPLER 2020-11-01 09:32:00 [facility] POCT-GLUCOSE METER 2020-11-01 07:29:00 Davis, Elenita Koch [facility] HEMOGLOBIN A1C 2020-11-01 06:11:00 Davis, Elenita Koch [facility] VITAMIN D, 25-HYDROXY 2020-11-01 06:11:00 Davis, Elenita Koch [facility] CBC (HEMOGRAM ONLY) 2020-11-01 06:11:00 Joaquin Chapman [facility] BASIC METABOLIC PANEL 2020-11-01 06:11:00 Joaquin Chapman I [facility] (7) [facility] SARS-COV2/RT-PCR ([facility] & 2020-10-31 21:55:00 Davis, Elenita Steinberg [facility] - REF LABS) [facility] CBC W/PLT COUNT & AUTO 2020-10-31 21:50:00 Davis, Elenita Koch [facility] DIFFERENTIAL [facility] BASIC METABOLIC PANEL 2020-10-31 21:50:00 Davis, Elenita Koch [facility] (7) [facility] TROPONIN I 2020-10-31 21:50:00 Davis, Elenita Koch [facility] PROTHROMBIN TIME/INR 2020-10-31 21:50:00 Davis, Elenita Koch [facility] XR FEMUR 2 VIEWS LEFT 2020-10-31 19:19:00 Jason Cevallos [facility] XR FOOT LEFT 3 VIEW 2020-10-31 19:19:00 Mart Jason [facility] XR ANKLE 3 VIEWS LEFT 2020-10-31 19:19:00 Mart Jason [facility] XR LEG/TIBIA & FIBULA 2020-10-31 19:19:00 Mart Jason [facility] - LEFT 2 VIEWS [facility] ECG 12-LEAD 2020-10-31 17:07:56 Davis, Elenita Koch [facility] Kyphoplasty of fracture 2013-06-22 05:00:00 Gabe Mcdowell of lumbar spine using computed tomography (CT) guidance Bypass / graft of vein 2008-06-22 05:00:00 Randi Mcdowell Arthroplasty of 1995-06-22 05:00:00 [facility] knee<sup>1</sup> Discectomy 1986-06-22 05:00:00 [facility] 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 Gabe Mcdowell left hand Arthroscopy of knee 1964-06-22 05:00:00 [facility] joint<sup>2</sup> Appendectomy [facility] Plan of Care Planned Activity Planned Date Details Comments Source Future Scheduled 2021-05-[address] [facility] - Test 00:00:00 measurement [facility] (procedure) [code = 41572436] Future Scheduled 2020-11-[address] [facility] - Test 00:00:00 (12+) [code = Medical Center DEPRESSION SCREENING (12+)] Future Scheduled 2020-07-12 INFLUENZA VACCINE (#1) [facility] - Test 00:00:00 [code = INFLUENZA Medical Ce nter VACCINE (#1)] Future Scheduled 2006 PNEUMOCOCCAL 65+ YRS [facility] - Test 00:00:00 (1 of 1 - Medical Center QSXA43_Jiumwiw PCV13) [code = PNEUMOCOCCAL 65+ YRS (1 of 1 - NIPA05_Gawxhxd PCV13)] Future Scheduled 1999-06-12 MEDICARE ANNUAL [facility] [...] [facility] es - Test 00:00:00 examination [facility] (regime/therapy) [code = 829328238] Future Scheduled 1951 Urine screening for [facility] - Test 00:00:00 protein (procedure) Medical Center [code = 197099498] Encounters Start End Encounter Admission Attending Care Care Encounter Source Date/Time Date/Time Type Type Clinicians Facility Department ID 2019-07-04 Inpatient U [facility]SE PUL [id number] [facility] 2021-01-10 2021-01-10 Patient Taran IAARIELA [id number] 00:00:00 00:00:00 Outreach Lizette Johnson [facility] [id number] [place] [id number] [facility] [id number] nal 044 Office [facility] 2020-07-19 2020-07-19 Outpatient Nathen, MHMISCHER MHMISCHER [id number] 10:00:00 10:00:00 Fede 00 Chuckie 2020-07-19 2020-07-19 Outpatient Nathen, MHMISCHER MHMISCHER [id number] 10:00:00 10:00:00 Fede 10 Chuckie 2020-03-16 2020-03-16 Outpatient Nathen, MHMISCHER MHMISCHER [id number] 09:15:00 23:59:59 Fede 09 Chuckie 2019-12-17 2019-12-17 Outpatient Nathen, MHMISCHER MHMISCHER [id number] 11:45:00 23:59:59 Fede 08 Chuckie 2019-11-13 2019-11-13 Outpatient Nathen, MHMISCHER MHMISCHER [id number] 08:45:00 23:59:59 Fede 07 Chuckie 2019-07-04 2019-07-06 Outpatient Isak, MHSE MHSE [id number] 17:33:00 16:35:00 Timoteo 36 Simeon 2019-06-24 2019-07-02 Outpatient Marisa, MHSE MHSE [id number] 13:43:00 15:37:00 Salra Kamila Abel 2019-06-24 2019-06-23 Inpatient U MHSE MED [id number] MH 13:43:00 15:31:00 [facility] 2019-02-26 2019-02-26 Outpatient Nathen, MHMISCHER MHMISCHER [id number] 09:45:00 09:45:00 Fede 05 Chuckie 2018-11-20 2018-11-20 Outpatient Nathen, MHMISCHER MHMISCHER [id number] 13:15:00 13:15:00 Fede 03 Chuckie 2018-10-30 2018-10-31 Outpatient MHMISCHER MHMISCHER [id number] 14:29:00 23:59:59 02 2018-10-23 2018-10-23 Outpatient JOCELYN SenaSCHER MELODYSCHER [id number] 09:30:00 23:59:59 Fede 04 Chuckie 2018-10-09 2018-10-09 Outpatient JOCELYN SenaSCHER JOCELYNSCHER [id number] 13:30:00 23:59:59 Fede Chuckie 2018-09-26 2018-09-27 Outpatient MHMISCHER MISCHER [id number] 12:14:00 23:59:59 2018-09-25 2018-09-26 Outpatient MHMISCHER MHMISCHER [id number] 11:25:00 23:59:59 00 2018-09-16 2018-09-16 Outpatient JOCELYN SenaSCHER JOCELYNSCHER [id number] 15:00:00 23:59:59 Fede Chuckie 2018-09-11 2018-09-11 Outpatient JOCELYN SenaSCHER MELODYSCHER [id number] 11:30:00 23:59:59 Fede 00 Chuckie Results Test Description Test Time Test Comments Results Result Sourc e Comments Treadmill Interface, External Ris C HI St tolerance(Non-Nu 6 In - 11/16/2020 10:[facility] - clear Treadmill) 10:49:29 CSTProtocol Name Mn malu [facility] In [facility] r Exercise Phase 00:01:00 [...] BP Response To Exercise Atorvastatin, MetoprololConfirmed by fellow Elmer Lopez ([id number]) on 11/01/2020 1:41:00 PMConfirmed by Abdirizak VAUGNH BASANT ([id number]) on 11/16/2020 10:49:22 AM POC-Glucose meter 2020-11-05 11:43:00 Test Item Value Reference Range Interpretation Comme nts POC-Glucose Meter (test code = 187 mg/dL 70-110 H : TESTED AT [facility] [address] [facility] 1538) [facility], 770 30: Solid Waste Management Engineer/Techni vance ID = [id number] for ELVIN SANTIAGO Lab Interpretation (test code = Abnormal 98737-9) [facility] [id number] 11:43:00 Test Item Value Reference Range Interpretation Comments POC-GLUCOSE METER 187 mg/dL 70-110 H : TESTED A T [facility] 6720 (BEAKER) (test code = BERTNE R [facility], 1538) [address]: Solid Waste Management Engineer/Techni vance ID = [id number] for ELVIN ESQUIVEL CBC with platelet count + automated [id number] 11:30:00 Test Item Value Reference Range Interpretation Comments WBC (test code = 6690-2) 6.9 See_Comment [A utomated message] The system edelight generated this result transmitted ref erence range: 3.5 - 10 .5 K/L. The refe rence range was not u sed to interpret this result as normal/abnor mal. RBC (test code = 789-8) 2.54 See_Comment L [Au tomated message] The system edelight generated this result transmitted ref erence range: 4.63 - 6 .08 M/L. The refe rence range was not u sed to interpret this result as normal/abnor mal. MCHC (test code = 786-4) 31.9 See_Comment L [A utomated message] The system edelight generated this result transmitted ref erence range: [...] See_Comment [Aut omated message] 777-3) The system edelight generated this result transmitted ref erence range: 150 - 45 0 K/CU MM. The referen ce range was not u sed to interpret this result as normal/abnor mal. MPV (test code = 11.3 fL 9.4-12.4 17389-4) nRBC (test code = 413) 0 See_Comment [Aut omated message] The system edelight generated this result transmitted ref erence range: [...] See_Comment [Aut omated message] 670) The system edelight generated this result transmitted ref erence range: 1.78 - 5 .38 K/L. The refe rence range was not u sed to interpret this result as normal/abnor mal. # Lymphs (test code = 1.49 See_Comment [Auto mated message] 414) The system edelight generated this result transmitted ref erence range: 1.32 - 3 .57 K/L. The refe rence range was not u sed to interpret this result as normal/abnor mal. # Monos (test code = 1.12 See_Comment H [Autom ated message] 415) The system edelight generated this result transmitted ref erence range: 0.30 - 0 .82 K/L. The refe rence range was not u sed to interpret this result as normal/abnor mal. # Eos (test code = 416) 0.23 See_Comment [Au tomated message] The system edelight generated this result transmitted ref erence range: 0.04 - 0 .54 K/L. The refe rence range was not u sed to interpret this result as normal/abnor mal. # Baso (test code = 417) 0.05 See_Comment [A utomated message] The system edelight generated this result transmitted ref erence range: 0.01 - 0 .08 K/L. The refe rence range was not u sed to interpret this result as normal/abnor mal. Immature 1 % 0-1 Granulocytes-Relative (test code = 2801) Lab Interpretation (test Abnormal code = 95042-1) [facility] W/PLT COUNT & AUTO [id number] 11:30:00 Test Item Value Reference Range Interpretation [...] PERCENT (BEAKER) (test code = 2801) POCT-GLUCOSE [id number] 08:38:00 Test Item Value Reference Range Interpretation Comments POC-GLUCOSE METER 204 mg/dL 70-110 H : TESTED A T [facility] 6720 (BEAKER) (test code = [facility], [facility]) [address]: Solid Waste Management Engineer/Techni vance ID = [id number] for ELVIN ESQUIVEL POCT-GLUCOSE [id number] 21:15:00 Test Item Value Reference Range Interpretation Comments POC-GLUCOSE METER 156 mg/dL 70-110 H : TESTED A T [facility] 6720 (BEAKER) (test code = [facility], [facility]) 98997: Solid Waste Management Engineer/Techni vance ID = [id number] for Dhara Jackson POCT-GLUCOSE [id number] 16:04:00 Test Item Value Reference Range Interpretation Comments POC-GLUCOSE METER 153 mg/dL 70-110 H : TESTED A T [facility] 6720 (BEAKER) (test code = [facility], [facility]) 29092: Solid Waste Management Engineer/Techni vance ID = [id number] for Wi lliams, Areiona POCT-GLUCOSE [id number] 12:34:00 Test Item Value Reference Range Interpretation Comments POC-GLUCOSE METER 229 mg/dL 70-110 H : TESTED A T [facility] 6720 (BEAKER) (test code = [facility], 1538) [address]: Solid Waste Management Engineer/Techni vance ID = [id number] for Wi lliams, Areiona POCT-GLUCOSE [id number] 05:06:00 Test Item Value Reference Range Interpretation Comments POC-GLUCOSE METER 129 mg/dL 70-110 H : TESTED A T [facility] 6720 (BEAKER) (test code = [facility], 1538) [address]: Solid Waste Management Engineer/Techni vance ID = [id number] for [place] LLIAMS, ELVIN POCT-GLUCOSE [id number] 21:18:00 Test Item Value Reference Range Interpretation Comments POC-GLUCOSE METER 184 mg/dL 70-110 H : TESTED A T [facility] 6720 (BEAKER) (test code = [facility], [facility]) [address]: Solid Waste Management Engineer/Techni vance ID = [id number] for [place] LLIAMS, ELVIN POCT-GLUCOSE [id number] 16:12:00 Test Item Value Reference Range Interpretation Comments POC-GLUCOSE METER 245 mg/dL 70-110 H : TESTED A T [facility] 6720 (BEAKER) (test code = [facility], [facility]) 32789: Solid Waste Management Engineer/Techni vance ID = [id number] for Wi lliams, Areiona POCT-GLUCOSE [id number] 11:53:00 Test Item Value Reference Range Interpretation Comments POC-GLUCOSE METER 183 mg/dL 70-110 H : TESTED A T [facility] 6720 (BEAKER) (test code = [facility], [facility]) [address]30: Solid Waste Management Engineer/Techni vance ID = [id number] for Wi lliams, Areiona POCT-GLUCOSE [id number] 08:15:00 Test Item Value Reference Range Interpretation Comments POC-GLUCOSE METER 165 mg/dL 70-110 H : TESTED A T [facility] 6720 (BEAKER) (test code = [facility], [facility]) 94703: Solid Waste Management Engineer/Techni vance ID = [id number] for Wi lliams, Areiona CBC (Hemogram only)2020-11-03 07:18:00 Test Item Value Reference Range Interpretation Comments WBC (test code = 6690-2) 7.9 See_Comment [A utomated message] The system edelight generated this result transmitted ref erence range: 3.5 - 10 .5 K/L. The refe rence range was not u sed to interpret this result as normal/abnor mal. RBC (test code = 789-8) 2.40 See_Comment L [Au tomated message] The system edelight generated this result transmitted ref erence range: 4.63 - 6 .08 M/L. The refe rence range was not u sed to interpret this result as normal/abnor mal. MCHC (test code = 786-4) 32.0 See_Comment L [A utomated message] The system edelight generated this result transmitted ref erence range: [...] See_Comment [Aut omated message] 777-3) The system edelight generated this result transmitted ref erence range: 150 - 45 0 K/CU MM. The referen ce range was not u sed to interpret this result as normal/abnor mal. MPV (test code = 10.5 fL 9.4-12.4 62002-0) nRBC (test code = 413) 0 See_Comment [Aut omated message] The system edelight generated this result transmitted ref erence range: 0 - 0 /1 00 WBC. The refere nce range was not u sed to interpret this result as normal/abnor mal. Lab Interpretation (test Abnormal code = 92074-2) [facility] (HEMOGRAM ONLY)2020-11-03 07:18:00 Test Item Value [...] (BEAKER) (test code = 413) Basic Metabolic [id number] 07:06:00 Test Item Value Reference Range Interpretation Comments Sodium (test code = 140 meq/L 050-389 8598-2) Potassium (test code = 4.6 meq/L 3.5-5.1 2823-3) Chloride (test code = 104 meq/L 98-107 2075-0) CO2 (test code = 27 meq/L 22-29 2028-9) BUN (test code = 25 mg/dL 7-21 H 3094-0) Creatinine (test code 1.36 mg/dL 0.57-1.25 H = 2160-0) Glucose (test code = 181 mg/dL 70-105 H 2345-7) Calcium (test code = 8.3 mg/dL 8.4-10.2 L 89632-3) EGFR (test code = 51 mL/min/1.73 [place] [address]-1) NOT ACCURATE CREATININE CLEARANCE IN PREDICTING GLOMERULAR FILTRATION RATE . ESTIMATED GFR I S NOT APPLICABLE FOR DIALYSIS PATIENTS. CADY (test code = CADY) Solid Waste Management Engineer ID - TIMMY Campa Lab Interpretation Abnormal (test code = 71609-8) [facility] METABOLIC [id number] 07:06:00 Test Item Value Reference Range Interpretation [...] S NOT APPLICABLE FOR DIALYSIS PATIEN TS. Solid Waste Management Engineer ID - TIMMY FPOCT-GLUCOSE [id number] 21:16:00 Test Item Value Reference Range Interpretation Comments POC-GLUCOSE METER 191 mg/dL 70-110 H : TESTED A T [facility] 6720 (Feidee) (test code = [facility], [facility]) 25995: Solid Waste Management Engineer/Techni vance ID = [id number] for WI LLIAMS, ELVIN POCT-GLUCOSE [id number] 16:20:00 Test Item Value Reference Range Interpretation Comments POC-GLUCOSE METER 201 mg/dL 70-110 H : TESTED A T [facility] 6720 (Feidee) (test code = [facility], 153) 11[address]: Solid Waste Management Engineer/Techni vance ID = [id number] for FE LDER, XI POCT-GLUCOSE [id number] 12:34:00 Test Item Value Reference Range Interpretation Comments POC-GLUCOSE METER 167 mg/dL 70-110 H : TESTED A T [facility] 6720 (BEAKER) (test code = [facility], 153) [address]: Solid Waste Management Engineer/Techni vance ID = [id number] for FE LDER, XI POCT-GLUCOSE [id number] 11:00:00 Test Item Value Reference Range Interpretation Comments POC-GLUCOSE METER 171 mg/dL 70-110 H : TESTED A T [facility] 6720 (BEAKER) (test code = [facility], 153) [address]: Solid Waste Management Engineer/Techni vance ID = [id number] for [place] EM, YUDITH FL, FLUORO, NON-SPECIFIC, UP TO 1 [id number] 08:51:00Reason for exam:->IM Rodding Left [facility]ur [facility] : 1940 Sex: MFluoroscopic unit utilized for a procedure performed in the OR. No interpretation was requested. Refer to the operative report for findings. Refer to PACS for patient radiation dose information.FL fluoro non-specific up to 1 [id number] 08:51:00 Interface, External Ris In - 11/02/2020 8:59 AM CSTFluoroscopic unit utilized for a procedure performed in the OR. No interpretation was requested. Refer to the operative report for findings. Referto PACS for patient radiation dose information.[facility] HospitalPOCT-[facility]UCOSE [id number] 06:47:00 Test Item Value Reference Range Interpretation Comments POC-GLUCOSE METER 108 mg/dL 70-110 : TESTED A T [facility] [address] [facility] (test code = MARCELA Valdez [facility], 1538) [address]: Solid Waste Management Engineer/Techni vance ID = [id number] for MARIKA SERNAELVIN CASAS TSH/Free T4 If [id number] 06:02:00 Test Item Value Reference Range Interpretation Comments TSH (test code = 1.932 See_Comment [Automated 65124-9) message] The system which generated this result transmit shannen reference range : 0.350 - 4.940 uIU/mL. The reference range was not used to interpret this result as normal/abnormal . CADY (test code = CADY) Solid Waste Management Engineer ID - RADHA Ashraf Lab Interpretation Normal (test code = 77662-4) [facility] HospitalVitamin B12 and [id number] 06:02:00 Test Item Value Reference Range Interpretation Comments Vitamin B12 (test 431 pg/mL 213-816 code = 2132-9) Folate (test code = 9.80 ng/mL See_Comment [Automa shannen 2284-8) message] The system which generated this result transmit shannen reference range : >=7.00. The reference range was not used to interpret this result as normal/abnormal . CADY (test code = CADY) Solid Waste Management Engineer ID Itzel GARCIA M Lab Interpretation Normal (test code = 00950-2) [facility]FREE T4 IF [id number] 06:02:00 Test Item Value Reference Range Interpretation Comments THYROID STIMULATING HORMONE 1.932 uIU/mL 0.350-4.940 (BEAKER) (test code = 772) Solid Waste Management Engineer ID Itzel GARCIA MVITAMIN B12 AND [id number] 06:02:00 Test Item Value Reference Range Interpretation Comments VITAMIN B12 (BEAKER) (test code = 431 pg/mL 213-816 774) FOLATE (BEAKER) (test code = 362) 9.80 ng/mL >=7.00 Solid Waste Management Engineer JASON GARCIA MBASIC METABOLIC [id number] 04:33:00 Test Item Value Reference Range Interpretation [...] S NOT APPLICABLE FOR DIALYSIS PATIEN TS. Solid Waste Management Engineer ID - RADHA [facility] (HEMOGRAM ONLY)2020-11-02 04:06:00 [...] 0-0 (BEAKER) (test code = 413) POCT-GLUCOSE [id number] 22:00:00 Test Item Value Reference Range Interpretation Comments POC-GLUCOSE METER 241 mg/dL 70-110 H : TESTED A T [facility] 6720 (BEAKER) (test code = [place]A [place], 1538) [address]: Solid Waste Management Engineer/Techni vance ID = [id number] for ELVIN PHILLIPS, [id number] 17:35:00 Test Item Value Reference Range Interpretation Comments ABO Grouping (test code = 2588) O Rh Factor (test code = 2589) POS [facility] HospitalType and screen, [id number] 17:03:00 Test Item Value Reference Range Interpretation Comments ABO/RH AUTOMATED (BEAKER) (test O POSITIVE code = 2260) Ab Scrn (test code = 890-4) NEGATIVE [facility]2D Echo W/Doppler(CW/PW/Color)2020-11-01 16:29:24 Ejection FractionSLEH ECHO HEARTLAB MKCKESSON CPACSInterface, External Ris In - 11/01/2020 4:29 PM CSTTransthoracic Echocardiography Report (TTE) Demographics Patient Name NATE POWER Date ofStudy 11/01/2020 Gender Male Visit Number [id number] Race Unknown Room Number 1530 Number Date of 1940 Referring Elenita Davis MD Physician Age 80 year(s) Hospital Internship Lucinda Hdz [facility] Interpreting Lb Darling MD Physician Fellow Lb [...] 0.27. AoV resting Peak Gradient = 24mmHg. Dtlpxezg-um-jbobsx AoV cusp calcification. Note Doppler interrogation is [...] TR Velocity: 2.62 m/s TR Gradient: 27.49 mmHgSan Luis Rey Hospital PET/CT, CARDIAC PERF REST AND [id number] 16:25:00Reason for exam:->pre-op clearance, poor functional capacity. h/o coronary stent [facility] 1940 Sex: MFINAL REPORT PROCEDURE: MYOCARDIAL PERFUSION PET IMAGING (Rest/Stress)CPT CODE: 01236 INDICATION: Define Extent/Severity of Known CAD, Preoperative [...] MDReport Verified Date/Time: 11/01/2020 16:25:27 Reading Location: [place] [id number] Reading Room NM Myocardial Perfusion Pet/CT (Rest & Stress)2020-11-01 16:25:00Interface, External Ris In - 11/01/2020 4:27 PM CSTFINAL REPORT PROCEDURE: MYOCARDIAL PERFUSION PET IMAGING (Rest/Stress)CPT CODE: 20316 INDICATION: Define Extent/Severity of Known CAD, Preoperative [...] Kang MDReport Verified Date/Time:11/01/2020 16:25:27 Reading Location: [address] Reading Room Electronically signedby: KERVIN KANG MD on 11/01/2020 04:25 [facility] 12 [id number] 13:26:30Interface, External Ris In - 11/01/2020 1:26 PM CSTVentricular Rate 82 BPMAtrial Rate 82 BPMQRS Duration 146 msQ-T Interval 434 msQTC Calculation(Bazett) 507 msR [place] -80 degreesT [place] 37 degreesAtrial fibrillationRight superior axis deviationRight bundle branch blockNonspecific T wave abnormalityProlonged QTAbnormal ECG31 Oct 2020No significant changesConfirmed by MD PAULINO, BALJIT ([id number]) on 11/01/2020 1:26:25 [facility] CenterPOCT-GLUCOSE [id number] 13:15:00 Test Item Value Reference Range Interpretation Comments POC-GLUCOSE METER 144 mg/dL 70-110 H : TESTED A T [facility] 6720 (NEELIMASHASHI) (test code = MARCELA Valdez [place], 1538) [address]: Solid Waste Management Engineer/Techni vance ID = [id number] for MARIXA MADDOX Hemoglobin [id number] 11:33:00 Test Item Value Reference Range Interpretation Comments Hemoglobin A1C (test code 6.2 % 4.3-6.1 H = 4548-4) CADY (test code = CADY) Solid Waste Management Engineer ID - [id number] Lab Interpretation (test Abnormal code = 19163-6) [facility] HospitalHEMOGLOBIN [id number] 11:33:00 Test Item Value Reference Range Interpretation Comments HEMOGLOBIN A1C (BEAKER) (test code = 6.2 % 4.3-6.1 H 368) Solid Waste Management Engineer ID - [id number]-CoV2/RT-PCR (Asymptomatic ONLY)2020-11-01 10:43:00 Test Item Value Reference Range Interpretation Comments SARS-COV2/RT-PCR Negative Not Detected, (test code = Negative, See 73342-6) external report for linked test SARS-COV-2 [facility] (test code = 81334-3) CADY (test code = Negative result for [...] of the Act. Fact Sheet for Healthcare Providers:https://www.[employer]/sites/default/f laya/product/documents/F act_Sheet_HC_Providers_L ufy_KVAK-BvZ-8.pdf Fact Sheet for Healthcare Patients:https://www.[employer]/sites/default/fi les/product/documents/Fa ct_Sheet_Patients_Lyra_S ARS-CoV-2.pdf Performing Laboratory:[facility] [place] [address] [facility]ARS-[facility] ([facility])2020-11-01 10:43:00 Test Item Value Reference Range Interpretation Comments SARS-COV2/RT-PCR (test Negative Not Detected, Negative, code = 5390662) See external report for linked test SARS-COV-2 PERFORMING LAB [facility] EULALIA (test code = 9330569) Negative result for this test determines that [...] 564(g) of the Act.Fact Sheet for Healthcare Providers:https://www.[employer]/sites/default/files/product/documents/Fact_Shee l_CC_Pzoicmbwv_Kfkw_XUCX-GqJ-6.pdfFact Sheet for Healthcare Patients:https://www.[employer]/sites/default/files/product/ documents/Mqxi_Rnsdl_Uhlwlqjh_Nsct_HNQO-MzX-1.pdfPerforming Laboratory:[facility], [place] [address]BPXHU METABOLIC PANEL 2020-11-01 07:54:00 Test Item Value [...] S NOT APPLICABLE FOR DIALYSIS PATIEN TS. Solid Waste Management Engineer ID - ROSIANGPOCT-GLUCOSE [id number] 07:40:00 Test Item Value Reference Range Interpretation Comments POC-GLUCOSE METER 144 mg/dL 70-110 H : TESTED A T [facility] 6720 (BEAKER) (test code = MARCELA Valdez [facility], 1538) [address]: Solid Waste Management Engineer/Techni vance ID = [id number] for MARIXA MADDOX Vitamin D, 65-[id number] 07:34:00 Test Item Value Reference Range Interpretation Comments Vitamin D 25-Hydroxy 23.5 ng/mL 6.6-49.9 (test code = 2764) CADY (test code = CADY) Effective 08/21/2017: Reference Range ChangeNew: 6.6-49.9 ng/mL Previous: 13.0-47.8 ng/mL Recommended Vitamin D Target Range: 30.0-40.0 ng/mLOperator ID - PIAYA L Lab Interpretation (test Normal code = 98016-9) [facility] HospitalVITAMIN D, 75-[id number] 07:34:00 Test Item Value Reference Range Interpretation [...] = 413) RAD, FEMUR, MIN. 2 VIEWS, [id number] 03:58:00Reason for exam:->Leftt hip fxCH[facility]Name: [facility] : 1940 Sex: MFINAL [...] 11/01/2020 03:58:30 RAD, FOOT, MIN 3 VIEWS, [id number] 03:58:00Reason for exam:->left foot painM[facility]Name: [facility] : 1940 Sex: [...] 11/01/2020 03:58:30 RAD, ANKLE, MIN 3 VIEWS, [id number] 03:58:00Reason for exam:- >left foot pain [facility] : 1940 Sex: [...] Singh Verified Date/Time: 11/01/2020 03:58:30 RAD, LEG, [id number] 03:58:00Reason for exam:->left leg pain [facility] : 1940 Sex: MFINAL REPORT [...] Date/Time: 11/01/2020 03:58:30 XR femur 2 views [id number] 03:58:00Interface, External Ris In - 11/01/2020 4:00 [...] Signed: Nicole Singh Verified Date/Time: 11/01/2020 03:58:30 [facility] tibia and fibula 2 views [id number] 03:58:00Interface, External Ris In - 11/01/2020 4:00 [...] Signed: Nicole Singh Verified Date/Time: 11/01/2020 03:58:30 [facility] [place] ankle 3 views sspr2650-02-18 03:58:00Interface, External Ris In - 11/01/2020 4:00 [...] Signed: Nicole Singh Verified Date/Time: 11/01/2020 03:58:30 [facility] fxzp4781-94-61 03:58:00Interface, External Ris In - 11/01/2020 4:00 [...] Nicole Singh MDR[place] Verified Date/Time: 11/01/2020 03:58:30 [facility] I 2020-10-31 22:39:00 Test Item Value Reference Range Interpretation Comments Troponin I (test code = 0.02 ng/mL 0-0.03 09051-0) CADY (test code = CADY) Troponin I [...] DB Lab Interpretation (test Normal code = 90881-3) [facility] [id number] 22:39:00 Test Item Value Reference Range Interpretation [...] failure, acidosis, acute neurological disease, and persistent tachyarrhythmia.[employer] Waste Management Engineer ID - DBBASIC METABOLIC PANEL 2020-10-31 22:32:00 [...] S NOT APPLICABLE FOR DIALYSIS PATIEN TS. Solid Waste Management Engineer ID - DBProthrombin time/[id number] 22:19:00 Test Item Value Reference Interpretation Comments Range Protime (test code = 15.4 See_Comment H [Autom ated 1282-2) message] The system which generated this result transmitted reference range : 11.9 - 14.2 seconds. The reference range was not used to interpret this result as normal/abnormal . INR (test code = 1.25 See_Comment [Automated 5551-6) message] The system which generated this result [...] valves. Lab Interpretation Abnormal (test code = 91708-0) [id number] 22:19:00 Test Item Value Reference Range Interpretation [...] mechanical heart valves.CBC W/PLT COUNT & AUTO HXWLIKSWQZGG3091-24-08 22:08:00 Test Item Value Reference Range Interpretation [...] PERCENT (BEAKER) (test code = 2801) CHEM IVHQL7413-70-14 09:16:002.1[facility] DVGOZ8650-31-38 09:16:003.5 [facility] JKMUZ9819-27-46 09:16:72699Pougyctf HermannCHEM PANEL 2019-07-06 09:16:0029[facility]annCHE[facility] KIJFD9839-21-30 09:16:001.12[facility]annCHE[facility] IEXBT8183-19-49 09:16:21432Yrkyrfjh [facility]annCHEM AILZH7064-77-02 09:16:003.9[facility]annCHE[facility] PJHDC3075-03-59 09:16:57928Mgvajlvg HermannCHEM XATZE1185-93-43 09:16:0032[facility]annCHE[facility] OMBUU7470-60-49 09:16:007.6 [facility] VXDTY2648-53-79 09:16:006.9[facility]annCHEM PANEL 2019-07-06 09:16:0063[facility]annCHE[facility] RQEXL1959-39-00 09:16:007.6[facility] PyctifyGNPMIEECLK9793-48-87 09:16:007.2[facility] HqvtnjuXCCHBIZHOJ6833-19-86 09:16:002.93[facility] PthzraoBQQAVSUHPH2881-36-42 09:16:009.4[facility] OOCVHXEITJ8852-03-16 09:16:0028.1[facility] JfmzzlxJRUKUXKAOK1102-85-95 09:16:00 96.1[facility] IcqykkdVLARLMKNEJ9799-83-34 09:16:00 Test Item Value Reference Range Interpretation Comments MCH (test code = MCH) 32.1 pg 27.0-31.0 [facility] WemhpdlGWKJDSGEMV8189-94-63 09:16:0033.4[facility]annHEMATOLOGY 2019-07-06 09:16:0016.1[facility] HwxhcaxKLDLQXWKRS9032-37-34 09:16:24039Ofwgsfmf EfedejvAUDFPGQUHL4373-43-46 09:16:007.9[facility] HermannSTIMULATION STUDIES 2019-07-06 09:16:0010.8[facility]annBL[facility]OD BANK NODIUAC3823-25-83 16:00:00 Negative (07/05/19 11:00 AM)[facility] ZIPRKQQ6787-70-78 14:30:00 Product available 4(07/05/19 9:30 AM)[facility]ann[facility] PVLRA8434-38-76 09:10:007.6[facility]annCHE[facility] YGHSQ2755-47-35 09:10:14740Ubxwwopa HermannCHEM DENTL3596-49-50 09:10:0045[facility]annCHE[facility] DBRQS1673-13-49 09:10:001.69 [facility] EIIRC3178-68-08 09:10:85497Zggvlyrk HermannCHEM PANEL 2019-07-05 09:10:003.7[facility]annCHE[facility] MFOKN9991-80-60 09:10:01678Ircxyess HermannCHEM AHWAJ6582-97-30 09:10:0032[facility]annCHEM ZRAZO5704-04-24 09:10:007.6[facility]annCHE[facility] VATNQ9710-50-03 09:10:008.7[facility]annCHEM DKJMM6868-58-03 09:10:0038[facility]annCHE[facility] QALNW3109-17-54 09:10:002.0 [facility]annCHE[facility] DAPKY1392-23-27 09:10:003.7[facility]annHEMATOLOGY 2019-07-05 09:10:008.6[facility] JxcezotOTFHBLLZIZ5396-35-66 09:10:002.48[facility] RbmzradEEAPYBHSAE5947-18-08 09:10:008.0[facility] DjzfaxwZUYTWXTCCO6171-95-56 09:10:0024.1[facility] ChlbexxGHCLLGQASS3810-76-60 09:10:0097.1[facility] PEZCTRDLTA9293-03-50 09:10:00 Test Item Value Reference Range Interpretation Comments MCH (test code = MCH) 32.2 pg 27.0-31.0 [facility] CgthylqYURHDXPTBU9287-23-76 09:10:0033.2[facility]annHEMATOLOGY 2019-07-05 09:10:0016.5[facility] EfmveheIOLJGLTPNV4340-28-44 09:10:81767Xwwntpio CfvaihlTXKYZIXQDG4972-39-96 09:10:008.5[facility] HermannCARDIAC OVYQTEA0414-11-30 00:33:000.07[facility]annCARDIAC PADUXWU4934-75-55 00:33:54574Gftalpkj [facility]annCHEM AVWST3294-70-49 00:33:001.9[facility]annCHEM PUWCR0717-67-95 00:33:003.4[facility] HvnmkutZAYWVWYWLEAJ9205-43-54 00:33:009.8[facility] SNJDJPBNQVPK1833-77-21 00:33:00 Test Item Value Reference Range Interpretation Comments B/C Ratio (test code = B/C Ratio) 24 05-05 [facility] OteuvjbJTMOLGVKPDXH8612-90-83 00:33:002.3[facility] HermannELECTROLYTES 2019-07-05 00:33:00 Test Item Value Reference Range Interpretation Comments A/G Ratio (test code = A/G Ratio) 1.2 1 0.7-1.6 [facility] YwsvgcrORJHQIBUBVXQ5552-34-86 00:33:82284Mwzekoqz HermannELECTROLYTES 2019-07-05 00:33:0046[facility] SgzvurvHODNMHBJQOXB6934-20-55 00:33:001.90[facility] VracqkqDPFXSMSYCPPL2799-72-50 00:33:95965Rqtfxmvx OvuwwmxXHHPEIJZBSFG4970-77-57 00:33:003.8[facility] DhlvpiiPPGDPWINHBHA1788-58-00 00:33:12039Svljsezl Jeremias NELLDYOLHPZT6023-74-94 00:33:0032[facility] CmkiwztYJGYMQXFKBLF9130-00-28 00:33:00 5.1[facility] AkrfavfFWBLXGNFPVKQ1331-24-68 00:33:002.8[facility] TQOWMHOXSRUN4474-12-21 00:33:0021[facility] NixssjmFHOWMMSCEJEW3429-74-78 00:33:00 23[facility] MyckqtjQLEDGYGPHDEB8031-50-32 00:33:45249Jpixrqca HermannELECTROLYTES 2019-07-05 00:33:001.6[facility] FpnoduvLMLNDKAXLQBV3029-36-49 00:33:0033[facility] TqnokjqMPOEXMAMZD0320-08-17 00:33:00 Test Item Value Reference Range Interpretation Comments INR (test code = INR) 1.16 1 0.85-1.17 [facility] OzkftllYOQUDFRENE6883-77-72 00:33:00 Test Item Value Reference Range Interpretation Comments PT (test code = PT) 14.6 s 12.0-14.7 [facility] MjnbryrUTAWTATJEV5565-88-05 00:33:00 Test Item Value Reference Range Interpretation Comments PTT (test code = PTT) 33.0 s 22.9-35.8 [facility] AyfegfjBJDHFJDWEY5182-64-16 00:33:0011.0[facility]annHEMATOLOGY 2019-07-05 00:33:002.89[facility] NtywpdxAXLFOSKYZD2669-54-43 00:33:009.3[facility] SvkaxvkHKVFHBFQDA0361-85-04 00:33:0027.9[facility] IwesuznMYILSXGAJV6666-14-24 00:33:0096.emorial UqnlzuzUCVCVWSHKS8334-93-32 00:33:00 Test Item Value Reference Range Interpretation Comments MCH (test code = MCH) 32.2 pg 27.0-31.0 [facility] RfbpyuiGMFREXCLML4425-41-73 00:33:0033.3[facility] HermannHEMATOLOGY 2019-07-05 00:33:0016.9[facility] GaplrpqRFNBEYTUMA4647-69-52 00:33:71781Tsdxaxfr MzwqhdiOWMNJSMNXS8633-05-56 00:33:008.4[facility] PzhyzciXNCHMYBQWR2833-27-78 00:33:0066.6[facility] TejmoayMMQYYZJGFY6838-87-42 00:33:0012.6[facility] NGSHZHHAAQ2755-43-60 00:33:0017.8[facility] VbggtjvYILETOCUXQ7149-13-46 00:33:00 2.4[facility] ImhdpmmYQMPXUYZQF4017-85-19 00:33:000.6[facility]annHEMATOLOGY 2019-07-05 00:33:007.4[facility] LrptaisQKMXSSQAYR0167-47-02 00:33:001.4[facility] MudfybiDWSYBTFHMA7255-33-20 00:33:002.0[facility] PcaclsnENRWLZNMTI8572-20-98 00:33:000.3[facility] CmdfavnJQENFGLNNC4949-87-15 00:33:000.1[facility] HermannURINE PMUT5272-77-94 23:37:0026[facility] HermannURINE RNFY6226-99-40 23:37:38369.00 [facility]annCHEM VDMNL2233-32-18 16:11:26315Ybjsgjvk HermannCHEM PANEL 2019-07-02 16:11:0024[facility] HermannCHEM AZSLO9088-20-29 16:11:001.31[facility]annCHEM TCZRD0124-68-86 16:11:71598Zvgqxgmr [facility]annCHEM ZMYED6179-28-20 16:11:004.1[facility] HermannCHEM OSNQC5574-05-08 16:11:27744Ifqthtou HermannCHEM ZPXBA6760-21-73 16:11:0031[facility]annCHEM CEIBQ6218-78-36 16:11:0010.1 [facility]annCHE[facility] LDMVU8124-69-86 16:11:008.2[facility] HermannCHEM PANEL 2019-07-02 16:11:0052[facility]annCHEM UFONK1508-98-71 19:11:0092[facility]annCHEM IYEHM6217-68-11 19:11:0021[facility]annCHEM IFQXA6158-09-81 19:11:001.45[facility]annCHEM PIGMI9844-54-86 19:11:09734Tkaxdxux HermannCHEM STYML5848-79-86 19:11:003.6[facility]annCHEM XBQUL8998-17-25 19:11:78365 [facility]annCHEM CJTDZ5007-79-97 19:11:0030[facility]annCHEM PANEL 2019-07-01 19:11:008.1[facility]annCHEM BTTNR2398-52-88 19:11:0010.6[facility]annCHEM WLJGS1658-74-10 19:11:0046[facility] HermannCARDIAC OIJWOFD0332-43-28 16:38:67543Vftomhra HermannCHEM ZNCHX7083-85-96 16:38:86770Xusffxpw HermannCHEM QTHWI3612-15-37 16:38:0016[facility] HermannCHEM NSAAD8947-90-62 16:38:001.12 [facility]annCHEM YCCDB4895-31-87 16:38:62003Ccywbaof HermannCHEM PANEL 2019-06-30 16:38:003.9[facility] HermannCHEM FLLHU1591-05-70 16:38:03624Ujyrzsbk HermannCHEM SEJKQ9695-93-22 16:38:0031[facility]annCHEM SOOGF3562-32-75 16:38:008.1[facility]annCHEM CUPSB9360-45-89 16:38:005.0[facility]annCHEM CPMPN1084-61-67 16:38:002.6[facility]annCHEM QTFOQ3887-35-67 16:38:0029 [facility]annCHEM UCPAJ5899-37-87 16:38:0011[facility] HermannCHEM PANEL 2019-06-30 16:38:0092[facility] HermannCHEM XRVXB8433-90-77 16:38:001.7[facility] HermannCHEM AANJG6595-58-64 16:38:008.9[facility]annCHEM EHPWI6197-74-43 16:38:00 Test Item Value Reference Range Interpretation Comments B/C Ratio (test code = B/C Ratio) 14 1 6-25 [facility]annCHE[facility] ZDGVP2467-88-91 16:38:002.4[facility]annCHEM PANEL 2019-06-30 16:38:00 Test Item Value Reference Range Interpretation Comments A/G Ratio (test code = A/G Ratio) 1.1 1 0.7-1.6 [facility]CHE[facility] BKFVX1723-60-85 16:38:0063[facility]annHEMATOLOGY 2019-06-30 16:38:009.0[facility] ObokxwbKEDXNYEZWH4650-86-22 16:38:002.65[facility] TxzvmikQWUFRYXBCG2006-64-29 16:38:008.5[facility] DzutemwLIMUESFEUM2626-72-13 16:38:0024.6[facility] YgtxibyYQARJTHMAF0873-34-78 16:38:0092.6[facility] IWCYFYTANU1118-61-55 16:38:00 Test Item Value Reference Range Interpretation Comments MCH (test code = MCH) 32.2 pg 27.0-31.0 [facility] SbglkilXNWBIFORCZ5860-18-67 16:38:0034.7[facility]annHEMATOLOGY 2019-06-30 16:38:0014.8[facility] JadtjqlYMBAVQDBPP5045-45-17 16:38:72335Jmbzbril LxhewxgJGTFYDXWXM0505-11-51 16:38:008.5[facility] BqcpmdxWEVVDCKZFT4678-93-84 18:44:009.6[facility] IbrvsdjKGROHRGHGZ4782-18-67 18:44:003.10[facility] PFTCIHHNXU9344-76-25 18:44:0010.0[facility] YsbvjxdDCVDIZJIVS3871-82-26 18:44:00 29.0[facility] BgeuwnnJYVLOUNLUQ7544-31-74 18:44:0093.5[facility]annHEMATOLOGY 2019-06-29 18:44:00 Test Item Value Reference Range Interpretation Comments MCH (test code = MCH) 32.1 pg 27.0-31.0 [facility] NbdjzbkFTBJJLQUTV3761-72-49 18:44:0034.4[facility]annHEMATOLOGY 2019-06-29 18:44:0014.9[facility] FuqxetsSYWAJHRYYI9109-87-72 18:44:38408Osreufui AqaovtnLHUAXFRJFK0896-68-70 18:44:008.6[facility] JlnjmehJDPMBTTFCG5695-76-53 18:44:0067.8[facility] SaxuejyXXYOGVTMYZ7669-35-13 18:44:0014.0[facility] UQNIAUAMNJ4512-69-27 18:44:0015.7[facility] VrtegrrYXBQDLNDYP3280-77-67 18:44:00 2.2[facility] XxhpckpMMPISKWXEC1315-34-42 18:44:000.3[facility]annHEMATOLOGY 2019-06-29 18:44:006.5[facility] IcwqammYFRAZHMCCB6577-18-37 18:44:001.3[facility] OsebaocNTPMGZVXST0444-62-90 18:44:001.5[facility] RrdzeczESTQWGWFHQ2764-88-62 18:44:000.2[facility]annCHEM QQLKB2837-34-60 10:37:002.4[facility] HermannCHEM PGSZM8169-41-92 10:37:001.5[facility] BhbcgvpGPNVIGMEOC0799-32-59 10:37:0061.5 [facility] WruvbosYJTTSNGGZU4223-97-80 10:37:0018.4[facility]annHEMATOLOGY 2019-06-29 10:37:0017.5[facility] OykwwflANONJTEHVS8927-35-90 10:37:002.2[facility] HgsqishGSVPAZGBDI8319-12-96 10:37:000.4[facility] ZhnjtykEZDBKSMBCC3596-98-34 10:37:005.5[facility] HjckilrPQPRBMBROT5976-70-50 10:37:001.7[facility] BRECZSCQQK0907-13-63 10:37:001.6[facility] VsqtvajEYBXVBBATT3190-82-32 10:37:000.2 [facility] ThqepgbXIETZCPGQZ8773-63-73 10:37:009.0[facility] HermannHEMATOLOGY 2019-06-29 10:37:002.54[facility] WsdyohzFMJWUHSZFA8425-41-83 10:37:008.2[facility] DqoefvxBCWYRTPLTL2827-86-78 10:37:0023.3[facility] XbjmbchKCGGPFAUYO5678-20-58 10:37:0091.6[facility] JdbuyhdXARQEGOLRM2899-92-52 10:37:00 Test Item Value Reference Range Interpretation Comments MCH (test code = MCH) 32.1 pg 27.0-31.0 [facility] SuefhkvPDBUFVMETM3508-95-24 10:37:0035.1[facility] HermannHEMATOLOGY 2019-06-29 10:37:0014.9[facility] NlhxvhbQFNCRANCJC1746-74-90 10:37:79805Crxvtmve HbzlcbgJPDFQODRMB3821-27-17 10:37:008.0[facility] HermannBLOOD BANK RESULTS 2019-06-28 20:52:00Product available (06/28/19 3:52 PM)[facility]BL[facility] JLMLYTG2172-56-23 20:11:00Product available 4(06/28/19 3:11 PM)[facility] MCHCAVM0570-40-96 13:27:00Negative (06/28/19 8:27 AM)[facility] HWGDRXK8567-26-70 13:05:00Product available 5(06/28/19 8:05 AM) [facility]annCHEM LSWMM2238-57-61 10:38:002.0[facility] HermannCHEM PANEL 2019-06-28 10:38:002.6[facility] OinijozELVFAXLXMR5332-29-39 10:38:0070.8[facility] JrgxaqtDTVIAIKLGA3936-25-53 10:38:0013.5[facility] ThoxahgUFXDMUCNHW2781-60-45 10:38:0015.1[facility] KdtdbjhRRBSEOJZTO1577-24-20 10:38:000.5[facility] DQJSEVHDGN1997-73-97 10:38:000.1[facility] GhfcikaYXBUDFBJZG7102-12-89 10:38:009.3 [facility] EowonswKYYXTGKZKJ9339-04-64 10:38:001.8[facility]annHEMATOLOGY 2019-06-28 10:38:002.0[facility] MtwlvivYOSJOZVXZQ6835-72-87 10:38:000.1[facility] HermannCHEM OIXDO3329-89-49 23:14:002.2[facility]annCHEM HDWGR3409-80-06 23:14:003.3[facility] HermannCARDIAC XCHOAZZ7984-89-05 23:30:000.03[facility] HermannPARATHYROID UJJHBHF8523-25-90 19:47:001.08[facility] HermannPARATHYROID NHAATRC4078-92-77 19:47:001.10[facility]annBLOOD BANK HWZOZCN0952-22-69 16:13:00Negative (06/23/19 11:13 AM)[facility]yywEDXBTNWYJK6442-17-11 16:13:00 Test Item Value Reference Range Interpretation Comments INR (test code = INR) 1.17 1 0.85-1.17 [facility] HospitalFzksjgeREVTWCYLRZ5651-84-99 16:13:00 Test Item Value Reference Range Interpretation Comments PT (test code = PT) 14.7 s 12.0-14.7 [facility] HospitalFygmzqkJHWEOQZNPX0655-80-82 16:13:00 Test Item Value Reference Range Interpretation Comments PTT (test code = PTT) 30.8 s 22.9-35.8 [facility] HospitalUdxvbyxMYYQEHCVEY4972-06-90 16:13:000.1[facility]
[2021-01-23 17:53] LABS: Protime INR 1.39
[2021-01-23 17:57] LABS: Absolute Lymphocytes (CBC) 1.6 K/uL (0.7-4.9); Basophils % 0.7 % (0-1.3); Hematocrit 27.1 % (39.6-49.0); Lymphocytes % 18.9 % (15.3-44.8); MPV 8.5 fL (7.6-11.3); RBC Red Blood Cell Count 2.98 M/uL (4.33-5.43)
[2021-01-23] MEDS ORDERED: FENTANYL CITR 100 MCG/2 ML ONE ×2 (17:59→21:42)
[2021-01-23 18:20] LABS: Albumin 2.4 g/dL (3.4-5.0); Bilirubin Direct 0.2 mg/dL (0-0.2); Bilirubin Total 0.4 mg/dL (0.2-1.0); Potassium 4.4 mmol/L (3.5-5.1); Protein, Total 6.4 g/dL (6.4-8.2)
[2021-01-23] MEDS ORDERED: NA CHLORIDE 0.9% 250 ML ONE (18:36)
--- NOTE | 2021-01-23 19:39 | EDPHYS ---
Physician Documentation [facility] Name: Mahnaz Baptiste Age: 81 yrs Sex: Male : 1940 Arrival Date: 01/23/2021 Time: 12:55 Bed 19 Private MD: Barrington Merrill S ED Physician Humberto Ruano HPI: 01/23 17:10 This 81 yrs old Male presents to ER via Wheelchair with complaints of cp Infection to Lower Legs. 17:10 The patient presents with pain, that is chronic, chronic wounds. The complaints affect cp the left lower leg and right lower leg. Onset: The symptoms/episode began/occurred gradually, worse over past several days. Associated signs and symptoms: Pertinent positives: warmth, Pertinent negatives fever. Treatment prior to arrival includes: no previous treatment. Patient reports he was hospitalized earlier this month for infection of lower legs. Wounds were treated by DR Ortiz and he was transferred to hospital in [place] for continued treatment but checked himself out to home. Historical: - Allergies: 14:03 Morphine; ca1 - PMHx: 14:03 Chronic pain; Hypertension; Myocardial infarction; neuropathy; ca1 - PSHx: 14:03 Knee surgery; Fentanyl Pain Pump; AMPUTATED FINGER; Left leg bypass; Heart stents; BACK ca1 SURGERY x 5; - Immunization history:: Adult Immunizations unknown. - Social history:: Smoking status: unknown. ROS: 17:15 Constitutional: Negative for body aches, chills, fever, poor PO intake. cp 17:15 Eyes: Negative for injury, pain, redness, and discharge. cp 17:15 Cardiovascular: Negative for chest pain. 17:15 Respiratory: Negative for cough, shortness of breath, wheezing. 17:15 Abdomen/GI: Negative for abdominal pain, nausea, vomiting, and diarrhea. 17:15 Skin: Positive for cellulitis, of the right lower leg and left lower leg, open wounds. 17:15 Neuro: Negative for altered mental status, headache. 17:15 All other systems are negative. Exam: 17:20 Constitutional: The patient appears in no acute distress, alert, awake, cp non-diaphoretic, non-toxic, well developed, frail. 17:20 Head/Face: Normocephalic, atraumatic. cp 17:20 Eyes: Periorbital structures: appear normal, Conjunctiva: normal, Lids and lashes: appear normal, bilaterally. 17:20 ENT: External ear(s): are unremarkable, Nose: is normal, Posterior pharynx: Airway: no evidence of obstruction, patent. 17:20 Neck: ROM/movement: is normal, is supple, without pain, no range of motions limitations. 17:20 Chest/axilla: Inspection: normal, Palpation: is normal, no crepitus, no tenderness. 17:20 Cardiovascular: Rate: normal, Edema: is not appreciated, JVD: is not appreciated. 17:20 Respiratory: the patient does not display signs of respiratory distress, Respirations: normal, no use of accessory muscles, no retractions, labored breathing, is not present, Breath sounds: are clear throughout, no decreased breath sounds, no stridor, no wheezing. 17:20 Abdomen/GI: Inspection: abdomen appears normal, Palpation: abdomen is soft and non-tender, in all quadrants. 17:20 Back: pain, is absent, ROM is normal. 17:20 Musculoskeletal/extremity: Pulses: very weak left dorsalis pedis and right dorsalis pedis, the right lower leg and left lower leg decreased sensation. 17:20 Skin: cellulitis, that is moderate, on the right lower leg and left lower leg, noted large area of necrotic skin to left heel, large open wound lateral aspect of left lower leg. 17:20 Neuro: Orientation: to person, place \\T\\ time. Mentation: is normal. cp Vital Signs: 13:57 BP 103 / 72; Pulse 84; Resp 19 S; Temp 97(TE); Pulse Ox 99% on R/A; Weight 70.31 kg ca1 (R); Height 5 ft. 7 in. (170.18 cm) (R); Pain 8/10; 18:00 BP 126 / 49; Pulse 64; Resp 17 S; Pulse Ox 98% on R/A; jd3 19:00 BP 97 / 47; Pulse 67; Resp 16; Pulse Ox 95% on R/A; em 20:02 BP 113 / 43; Pulse 67; Resp 18; Pulse Ox 94% on R/A; em 21:54 BP 106 / 49; Pulse 77; Resp 18; Pulse Ox 96% on R/A; em 23:00 BP 108 / 48; Pulse 80; Resp 18; Pulse Ox 95% on R/A; Pain 8/10; em 13:57 Body Mass Index 24.28 (70.31 kg, 170.18 cm) ca1 MDM: 16:39 Patient medically screened. cp 17:35 Physician consultation: Reji Ortiz MD was called at 17:35, was contacted at 17:36, cp regarding consult, patient's condition, and will see patient tomorrow in wound care clinic for follow-up. 19:45 Data reviewed: vital signs, nurses notes, lab test result(s), radiologic studies, I cp have discussed the patient's presentation/case with the attending Emergency Department Physician; and as a result, I will admit patient. 19:45 Physician consultation: Bert DUNLAP was contacted at 19:40, regarding admission, cp to the telemetry unit. patient's condition. 01/23 17:06 Order name: Basic Metabolic Panel; Complete Time: 18:25 01/23 18:26 Interpretation: Normal except: CO2 33; GLUC 213; BUN 27; CRE 1.86; GFR 35; CA 8.3. 01/23 17:06 Order name: CBC with Diff; Complete Time: 18:25 / 18:27 Interpretation: Normal except: RBC 2.98; HGB 8.7; HCT 27.1; PLT 244; MN% 12.8. 01/23 17:06 Order name: LFT's; Complete Time: 18:25 cp 01/23 18:26 Interpretation: Normal except: AST 9; ALT 10; ALK 124; ALB 2.4; GLOB 4.0; A/G 0.6. cp 01/23 17:06 Order name: Magnesium; Complete Time: 18:25 cp 01/23 17:06 Order name: PT-INR; Complete Time: 18:25 cp / 18:26 Interpretation: Abnormal: PT 16.0. cp 01/23 17:06 Order name: Procalcitonin; Complete Time: 18:58 cp 01/23 18:58 Interpretation: Abnormal: Procalcitonin 0.10. cp 01/23 17:06 Order name: Lactate; Complete Time: 18:58 cp 01/23 18:59 Interpretation: Abnormal: LAC 2.2. cp 01/23 17:06 Order name: Blood Culture Adult (2) cp 01/23 19:47 Order name: XRAY Tib Fib RIGHT; Complete Time: 00:13 cp 01/23 19:47 Order name: XRAY Tib Fib LEFT; Complete Time: 00:13 cp 01/23 19:48 Order name: COVID-19 : Document "Date of Symptom Onset" if Symptomatic. tt3 01/23 23:35 Order name: CORONAVIRUS EDMS 01/23 23:44 Order name: Lactate Sepsis 2 HR Follow-up; Complete Time: 00:13 EDMS 01/23 23:44 Order name: SARS-COV-2 RT PCR; Complete Time: 00:13 EDMS 01/23 17:06 Order name: Cardiac monitoring; Complete Time: 17:09 cp 01/23 17:06 Order name: IV Saline Lock; Complete Time: 18:22 cp 01/23 17:06 Order name: Labs collected and sent; Complete Time: 18:22 cp 01/23 17:06 Order name: O2 Per Protocol; Complete Time: 17:09 cp 01/23 17:06 Order name: O2 Sat Monitoring; Complete Time: 17:09 cp 01/23 17:44 Order name: Wound Care: please clean and dress wounds; Complete Time: 23:37 cp 01/23 19:47 Order name: XRAY Foot LEFT 3 View; Complete Time: 00:13 cp 01/23 19:47 Order name: XRAY Foot RIGHT 3 View; Complete Time: 00:14 cp Administered Medications: 17:51 Drug: fentaNYL (PF) 25 mcg Route: IVP; Site: left antecubital; jd3 18:22 Follow up: Response: Pain is decreased bp 18:00 Drug: NS 0.9% 250 ml Route: IV; Rate: bolus; Site: left antecubital; bp 19:00 Follow up: Response: No adverse reaction; IV Status: Completed infusion; IV Intake: jd3 250ml 21:15 Drug: NS 0.9% 750 ml Route: IV; Rate: 750 ml/hr; Site: left antecubital; em 23:37 Follow up: IV Status: Completed infusion; IV Intake: 750ml em 21:15 Drug: LevaQUIN 500 mg Volume: 100 ml; Route: IVPB; Infused Over: 60 mins; Site: left em antecubital; 01/24 00:52 Follow up: Response: No adverse reaction; IV Status: Completed infusion; IV Intake: em 100ml 01/23 21:25 Drug: fentaNYL (PF) 25 mcg Route: IVP; Site: left antecubital; em 01/24 00:51 Follow up: Response: No adverse reaction em 01/23 22:57 Drug: vancoMYCIN 1 grams Route: IVPB; Infused Over: 2 hrs; Site: left antecubital; em 01/24 00:52 Follow up: IV Status: Infusion continued upon admission em 00:48 Drug: fentaNYL (PF) 25 mcg Route: IVP; Site: left antecubital; em 00:52 Follow up: Response: Medication administered at discharge. em Disposition: 09:35 Co-signature as Attending Physician, Humberto Ruano MD I agree with the assessment and stephon plan of care. Disposition: 01/23/21 19:39 Hospitalization ordered by Zion Guido for Inpatient Admission. Preliminary diagnosis are Cellulitis of right lower limb, Cellulitis of left lower limb, Open wound of lower leg - bilateral. - Bed requested for Telemetry/MedSurg (Inpatient). - Status is Inpatient Admission. em - Condition is Stable. - Problem is an ongoing problem. - Symptoms have improved. Signatures: Dispatcher [employer] EDMS Hanane Ellis RN RN mw Gay, Steven, RN RN sg Anderson, Corey, MD MD cha Munoz, Edgar RN RN em Bert Tavares, IRRIGATOR GRAVITY FLOW-C IRRIGATOR GRAVITY FLOW-Cla1 Humberto Klein PA PA cp Jacques Morocho RN RN jDoron Cheng RN RN bp Hannah Suazo RN RN ca1 Corrections: (The following items were deleted from the chart) 01/23 18:26 18:25 Normal except: CO2 33; GLUC 213; BUN 27; CRE 1.86; GFR 35. cp cp 18:27 18:26 Normal except: RBC 2.98; HGB 8.7; HCT 27.1. cp cp 19:40 19:39 Hospitalization Ordered by Zion Guido DO for Inpatient Admission. Preliminary cp diagnosis is Cellulitis of right lower limb; Cellulitis of left lower limb. Bed requested for Telemetry/MedSurg (Inpatient). Status is Inpatient Admission. Condition is Stable. Problem is an ongoing problem. Symptoms have improved. cp 22:39 19:40 01/23/2021 19:39 Hospitalization Ordered by Zion Guido DO for Inpatient mw Admission. Preliminary diagnosis is Cellulitis of right lower limb; Cellulitis of left lower limb; Open wound of lower leg - bilateral. Bed requested for Telemetry/MedSurg (Inpatient). Status is Inpatient Admission. Condition is Stable. Problem is an ongoing problem. Symptoms have improved. cp 23:03 22:39 01/23/2021 19:39 Hospitalization Ordered by Zion Guido DO for Inpatient sg Admission. Preliminary diagnosis is Cellulitis of right lower limb; Cellulitis of left lower limb; Open wound of lower leg - bilateral. Bed requested for Telemetry/MedSurg (Inpatient). Status is Inpatient Admission. Condition is Stable. Problem is an ongoing problem. Symptoms have improved. 01/24 01:01 01/23 23:03 01/23/2021 19:39 Hospitalization Ordered by Zion Guido DO for Inpatient em Admission. Preliminary diagnosis is Cellulitis of right lower limb; Cellulitis of left lower limb; Open wound of lower leg - bilateral. Bed requested for Telemetry/MedSurg (Inpatient). Status is Inpatient Admission. Condition is Stable. Problem is an ongoing problem. Symptoms have improved. 01/24 22:32 01/23 17:10 This 81 yrs old Male presents to ER via Wheelchair with cp complaints of Laceration To Leg. cp
--- NOTE | 2021-01-23 19:39 | ER ---
Nurse's Notes [facility] Name: Mahnaz Baptiste Age: 81 yrs Sex: Male : 1940 Arrival Date: 01/23/2021 Time: 12:55 Bed 19 Private MD: Barrington Merrill S Diagnosis: Cellulitis of right lower limb;Cellulitis of left lower limb;Open wound of lower leg-bilateral Presentation: 01/23 13:57 Chief complaint: Patient states: Came here a week ago for pressure ulcers on back, ca1 legs. Was transferred to [facility] but did not like it there. Wounds are not healing and are draining right now. Denies fever. Coronavirus screen: Client denies travel out of the [place] in the last 14 days. At this time, the client does not indicate any symptoms associated with coronavirus-19. Ebola Screen: Patient negative for fever greater than or equal to 101.5 degrees Fahrenheit, and additional compatible Ebola Virus Disease symptoms Patient denies exposure to infectious person. Patient denies travel to an Ebola-affected area in the 21 days before illness onset. No symptoms or risks identified at this time. Initial Sepsis Screen: Does the patient meet any 2 criteria? No. Patient's initial sepsis screen is negative. Does the patient have a suspected source of infection? No. Patient's initial sepsis screen is negative. Risk Assessment: Do you want to hurt yourself or someone else? Patient reports no desire to harm self or others. Onset of symptoms was January 23, 2021. 13:57 Method Of Arrival: Wheelchair ca1 13:57 Acuity: ZIA 3 ca1 Historical: - Allergies: 14:03 Morphine; ca1 - PMHx: 14:03 Chronic pain; Hypertension; Myocardial infarction; neuropathy; ca1 - PSHx: 14:03 Knee surgery; Fentanyl Pain Pump; AMPUTATED FINGER; Left leg bypass; Heart stents; BACK ca1 SURGERY x 5; - Immunization history:: Adult Immunizations unknown. - Social history:: Smoking status: unknown. Screenin:42 Abuse screen: Denies threats or abuse. Nutritional screening: No deficits noted. jd3 Tuberculosis screening: No symptoms or risk factors identified. Fall Risk Ambulatory Aid- None/Bed Rest/Nurse Assist (0 pts). Gait- Normal/Bed Rest/Wheelchair (0 pts) Mental Status- Oriented to own ability (0 pts). Total [place] Fall Scale indicates No Risk (0-24 pts). Assessment: 17:00 General: Appears in no apparent distress. comfortable, Behavior is calm, cooperative, jd3 appropriate for age. Pain: Complains of pain in right leg and left leg Quality of pain is described as aching, tender. Neuro: Level of Consciousness is awake, alert, obeys commands, Oriented to person, place, time, situation. Cardiovascular: Denies chest pain, Capillary refill < 3 seconds Patient's skin is warm and dry. Respiratory: Airway is patent Respiratory effort is even, unlabored, Respiratory pattern is regular, symmetrical. GI: No signs and/or symptoms were reported involving the gastrointestinal system. : No signs and/or symptoms were reported regarding the genitourinary system. EENT: No signs and/or symptoms were reported regarding the EENT system. Derm: Skin is intact, Skin is dry, Skin is normal, Skin temperature is warm Wound noted right leg and left leg. Musculoskeletal: Circulation, motion, and sensation intact. 18:00 Reassessment: Patient appears in no apparent distress at this time. No changes from jd3 previously documented assessment. Patient and/or family updated on plan of care and expected duration. Pain level reassessed. Patient is alert, oriented x 3, equal unlabored respirations, skin warm/dry/pink. 20:00 Reassessment: Patient appears in no apparent distress at this time. Patient and/or em family updated on plan of care and expected duration. Pain level reassessed. Patient is alert, oriented x 3, equal unlabored respirations, skin warm/dry/pink. 21:20 Reassessment: request pain medication, provider notified, received VO to repeat em medication. 22:30 Reassessment: Patient appears in no apparent distress at this time. Patient and/or em family updated on plan of care and expected duration. Pain level reassessed. Patient is alert, oriented x 3, equal unlabored respirations, skin warm/dry/pink. Patient states feeling better. 23:30 Reassessment: Patient appears in no apparent distress at this time. Patient and/or em family updated on plan of care and expected duration. Pain level reassessed. Patient is alert, oriented x 3, equal unlabored respirations, skin warm/dry/pink. Vital Signs: 13:57 BP 103 / 72; Pulse 84; Resp 19 S; Temp 97(TE); Pulse Ox 99% on R/A; Weight 70.31 kg ca1 (R); Height 5 ft. 7 in. (170.18 cm) (R); Pain 8/10; 18:00 BP 126 / 49; Pulse 64; Resp 17 S; Pulse Ox 98% on R/A; jd3 19:00 BP 97 / 47; Pulse 67; Resp 16; Pulse Ox 95% on R/A; em 20:02 BP 113 / 43; Pulse 67; Resp 18; Pulse Ox 94% on R/A; em 21:54 BP 106 / 49; Pulse 77; Resp 18; Pulse Ox 96% on R/A; em 23:00 BP 108 / 48; Pulse 80; Resp 18; Pulse Ox 95% on R/A; Pain 8/10; em 13:57 Body Mass Index 24.28 (70.31 kg, 170.18 cm) ca1 ED Course: 12:55 Patient arrived in ED. mr 12:55 Barrington Merrill MD is Private Physician. mr 14:02 Triage completed. ca1 14:03 Arm band placed on right wrist. ca1 16:33 Humberto Klein PA is PHCP. cp 16:33 Humberto Ruano MD is Attending Physician. cp 16:40 Jacques Morocho, RN is Primary Nurse. jd3 16:42 Patient has correct armband on for positive identification. Placed in gown. Bed in low jd3 position. Call light in reach. Side rails up X2. Adult w/ patient. cafe lead on. Pulse ox on. NIBP on. 17:00 Nurse Practitioner and/or Physician Wallpaper Inspector And Shipper to see patient. jd3 19:38 Zion Guido DO is Hospitalizing Provider. cp 20:36 Primary Nurse role handed off by Jacques Morocho, RN sg 21:15 Blayne Lawson, RN is Primary Nurse. em 23:38 XRAY Tib Fib RIGHT In Process Unspecified. EDMS 23:38 XRAY Tib Fib LEFT In Process Unspecified. EDMS 23:38 XRAY Foot LEFT 3 View In Process Unspecified. EDMS 23:38 XRAY Foot RIGHT 3 View In Process Unspecified. EDMS 01/24 00:52 No provider procedures requiring assistance completed. Patient admitted, IV remains in em place. Administered Medications: 01/23 17:51 Drug: fentaNYL (PF) 25 mcg Route: IVP; Site: left antecubital; jd3 18:22 Follow up: Response: Pain is decreased bp 18:00 Drug: NS 0.9% 250 ml Route: IV; Rate: bolus; Site: left antecubital; bp 19:00 Follow up: Response: No adverse reaction; IV Status: Completed infusion; IV Intake: jd3 250ml 21:15 Drug: NS 0.9% 750 ml Route: IV; Rate: 750 ml/hr; Site: left antecubital; em 23:37 Follow up: IV Status: Completed infusion; IV Intake: 750ml em 21:15 Drug: LevaQUIN 500 mg Volume: 100 ml; Route: IVPB; Infused Over: 60 mins; Site: left em antecubital; 01/24 00:52 Follow up: Response: No adverse reaction; IV Status: Completed infusion; IV Intake: em 100ml 01/23 21:25 Drug: fentaNYL (PF) 25 mcg Route: IVP; Site: left antecubital; em 01/24 00:51 Follow up: Response: No adverse reaction em 01/23 22:57 Drug: vancoMYCIN 1 grams Route: IVPB; Infused Over: 2 hrs; Site: left antecubital; em 01/24 00:52 Follow up: IV Status: Infusion continued upon admission em 00:48 Drug: fentaNYL (PF) 25 mcg Route: IVP; Site: left antecubital; em 00:52 Follow up: Response: Medication administered at discharge. em Intake: 01/23 19:00 IV: 250ml; Total: 250ml. jd3 23:37 IV: 750ml; Total: 1000ml. em 01/24 00:52 IV: 100ml; Total: 1100ml. em Outcome: 01/23 19:39 Decision to Hospitalize by Provider. cp 01/24 00:52 Admitted to Tele accompanied by tech, via stretcher, room 429, with chart, Report em called to KISHOR Petersen Condition: stable Instructed on the need for admit, Demonstrated understanding of instructions. 01:01 Patient left the ED. em Signatures: Dispatcher [employer] Howard Mata RN RN Mary Ann Hanks Edgar, RN RN em Humberto Klein PA PA cp Davies, Jonathon, RN RN jd3 Doron Banks RN RN bp Hannah Suazo RN RN ca1 Corrections: (The following items were deleted from the chart) 01/23 14:31 13:57 BP 103 / 72; Pulse 84bpm; Resp 79bpm; Spontaneous; Pulse Ox 99% RA; Temp 97F ca1 Temporal; 70.31 kg Reported; Height 5 ft. 7 in. Reported; BMI: 24.2; Pain 8/10; ca1 18:30 18:29 BP 126 / 49; Pulse 64bpm; Resp 17bpm; Spontaneous; Pulse Ox 98% RA; jd3 jd3 19:31 19:31 Response: No adverse reaction; IV Status: Completed infusion; IV Intake: 250ml [id number]
[2021-01-23] MEDS ORDERED: NA CHLORIDE 0.9% 500 ML ONE (20:42)
[2021-01-23] MEDS ORDERED: VANCOMYCIN 1 GM/VIAL ONE (20:42)
[2021-01-23] MEDS ORDERED: Levofloxacin500mg IV 500 MG/100 ML BAG IV ONE (20:42)
--- NOTE | 2021-01-23 21:03 | RAD REPORT ---
EXAM DESCRIPTION: RAD - Foot Left 3 View - 01/23/2021 8:53 pm CLINICAL HISTORY: Left Foot pain FINDINGS: No fracture or dislocation is seen. The bones are osteoporotic. No bony destructive lesions seen
--- NOTE | 2021-01-23 21:03 | RAD REPORT ---
EXAM DESCRIPTION: RAD - Foot Right 3 View - 01/23/2021 8:53 pm CLINICAL HISTORY: Right foot pain FINDINGS: No fracture or dislocation is seen. Bones are osteoporotic. No bony destructive lesion is seen
--- NOTE | 2021-01-23 21:05 | RAD REPORT ---
EXAM DESCRIPTION: RAD - Tib Fib Right - 01/23/2021 8:53 pm CLINICAL HISTORY: Right leg pain FINDINGS: No fracture is seen. Bones are osteoporotic. No bony destructive lesions seen. The knee prosthesis is good position. Vascular calcifications
--- NOTE | 2021-01-23 21:07 | RAD REPORT ---
EXAM DESCRIPTION: RADTib Fib Left01/23/2021 8:53 pm CLINICAL HISTORY: Left leg pain FINDINGS: No fracture is seen. Bones are osteoporotic 2 centimeter lucency is present within the mid fibula. This probably represents focal osteoporosis. A true lesion such as chronic osteomyelitis is possible but probably less likely. If the patient has c linical symptoms to suggest this CT would be recommended Vascular calcifications are present.
--- NOTE | 2021-01-23 21:23 | P.HP ---
Certification for Inpatient Patient admitted to: Inpatient With expected LOS: >2 Midnights Patient will require the following post-hospital care: Other (LTAC) Practitioner: I am a practitioner with admitting privileges, knowledge of patient current condition, hospital course, and medical plan of care. Services: Services provided to patient in accordance with Admission requirements found in Title 42 Section 412.3 of the Code of Federal Regulations Patient History Date of Service: 01/23/21 Primary Care Provider: Dr. Merrill Reason for admission: Lower extremity wounds History of Present Illness: 81-year-old male with history of diabetes mellitus type 2, hypertension, CAD, PVD, GERD, chronic pain and open wounds to the lower extremities presents emergency department for worsening of his wounds to the lower extremities. Patient was recently seen here and transferred to a long- term acute care facility for continued wound care, IV antibiotics, physical therapy, hyperbaric treatments. Patient reports that he did not like it there so he signed himself out against medical advice. Patient with extensive wounds to bilateral lower extremities. Patient was seen by infectious disease and general surgery during his admission here, Infectious Disease recommended ciprofloxacin 200 mg q.12 hr with Benadryl as patient is allergic in addition to renally dose adjusted vancomycin. Recommendation for L tach with hyperbaric oxygen in addition to IV antibiotics for 2-4 weeks. Patient had debridement on 01/16/2021 to the right foot, left foot, left leg. Patient also noted to have acute kidney injury in the emergency department a creatinine 1.86 GFR 35 pro calcitonin 0.1 white blood cell count 8.7, hemoglobin 8.7 hematocrit 27.1. Patient does not appear septic at this time, ED provider wishes to admit for further evaluation and management. Case was discussed with General Surgery while patient was in the emergency department. Allergies ciprofloxacin [From Cipro] Allergy (Verified 01/19/21 17:43) Itching morphine Allergy (Verified 10/05/20 13:36) Shortness of breath Home Medications: Alprazolam [Xanax] 1 mg PO TID PRN 10/05/20 Gabapentin 600 mg PO BEDTIME 10/05/20 Metoclopramide [Reglan*] 10 mg PO BID PRN 10/05/20 Metoprolol Succinate [Toprol Xl*] 12.5 mg PO DAILY 10/05/20 Ondansetron [Zuplenz] 8 mg PO Q4H PRN 10/05/20 Oxycodone HCl [Oxycontin] 80 mg PO TID PRN 10/05/20 Simvastatin 20 mg PO BEDTIME 10/05/20 Trazodone HCl 100 mg PO BEDTIME 10/05/20 Pantoprazole [Protonix Tab*] 40 mg PO BID 30 Days #60 tab 10/06/20 Calcitrol [Rocaltrol*] 0.5 mcg PO DAILY #30 cap 01/20/21 Cholecalciferol (Vitamin D3) [Vitamin D 5,000 IU Cap*] 5,000 unit PO DAILY #30 cap 01/20/21 Insulin Glargine Human [Lantus*] 10 units SQ BEDTIME #2 syr 01/20/21 Antolin [Antolin*] 1 pkt PO BID #60 powd.pack 01/20/21 Thiamine HCl [Vitamin B-1*] 100 mg PO DAILY #30 tablet 01/20/21 traMADol HCL [Ultram*] 50 mg PO TID PRN #30 tab 01/20/21 - Past Medical/Surgical History Diabetic: Yes -: Chronic pain -: HTN -: CAD with prior stents -: Diabetes mellitus type 2 insulin-dependent -: Peripheral vascular disease -: Hyperlipidemia -: GERD -: Chronic ulcers, 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 Lives at home. - Family History Father -: Heart disease - Social History Smoking Status: Current every day smoker Counseled patient to stop smoking for: less than 10 minutes Smoking therapy provided: Yes Alcohol use: No CD- Drugs: No Caffeine use: Yes Review of Systems 10-point ROS is otherwise unremarkable Musculoskeletal: Leg Pain, Foot Pain, As per HPI Physical Examination - Physical Exam General: Alert, In no apparent distress, Oriented x3 HEENT: Atraumatic, Normocephalic Neck: Supple Respiratory: Clear to auscultation bilaterally, Normal air movement Cardiovascular: No edema, Regular rate/rhythm, Normal S1 S2 Capillary refill: <2 Seconds Gastrointestinal: Normal bowel sounds Musculoskeletal: Erythema, Tenderness Integumentary: Diabetic ulcer, Venous stasis ulcer, Other (Bilateral heel deep tissue injury, right lateral foot deep tissue injury, right 2nd metatarsal deep tissue injury, right lateral leg chronic wound on stage able 23 x 5 cm left leg lateral wound on stage able 24 x 5 cm) Neurological: Normal speech, Normal tone, Sensation intact - Studies Laboratory Data (last 24 hrs) 01/23/21 17:26: PT 16.0 H, INR 1.39 01/23/21 17:26: WBC 8.70 D, Hgb 8.7 L, Hct 27.1 L, Plt Count 244 D 01/23/21 17:26: Sodium 139, Potassium 4.4, BUN 27 H, Creatinine 1.86 H, Glucose 213 H, Magnesium 2.0, Total Bilirubin 0.4, AST 9 L, ALT 10 L, Alkaline Phos phatase 124 H Assessment and Plan - Plan Assessment Worsening of chronic wounds to left lateral lower leg, left foot, left heel, ri ght lateral lower leg, right foot, right heel, sacrum complicated by severe PAD, tobacco abuse with medical noncompliance Diabetes mellitus type 2 Anemia of chronic disease PAD Renal insufficiency History of CAD History of COPD Plan Worsening of chronic wounds to left lateral lower leg, left foot, left heel, right lateral lower leg, right foot, right heel, sacrum complicated by PAD, tobacco abuse with medical noncompliance: Infectious disease previously recommended IV antibiotics for 2-4 weeks with IV Cipro 200 mg q 12 with Benadryl in addition to renally dose vancomycin, will continue with this in addition to placing infectious disease consult. Will place order for PICC line. General surgery consulted for possible debridement, recommendation was made for LTAC which is appropriate but patient left against medical advice. Will need to address this at length with patient regarding his options going forward. Wound healing consult in place. NPO after midnight. Diabetes mellitus type 2: A.c. HS Accu-Cheks scale insulin therapy. A1c with morning labs. Anemia of chronic disease: Transfuse for hemoglobin less than 7. Renal insufficiency: Nephrology consulted as patient with renal insufficiency and needing long-term antibiotics. History of CAD: Obtain and continue home medications as appropriate. History of COPD: Stable this time. Continue home meds. Discharge Plan: LTAC Plan to discharge in: 72 Hours - Advance Directives Does patient have a Living Will: Yes Does patient have a Durable POA for Healthcare: Yes - Code Status/Comfort Care Code Status Assessed: Yes (Full code) Critical Care: No Time Spent Managing Pts Care (In Minutes): 55
[2021-01-24 01:18] VITALS: BMI 25.4
[2021-01-24] MEDS ORDERED: ONDANSETRON 4 MG/2 ML VIAL IV PRN (01:35)
[2021-01-24] MEDS ORDERED: ACETAMINOPHEN 500 MG TAB PO PRN (01:35)
[2021-01-24] MEDS: INSULIN -REGULAR HUMAN 50 UNIT/0.5 ML ML SQ SCH ×5 (01:35→20:57)
[2021-01-24] MEDS: NA CHLORIDE 0.9% 1,000 ML IV SCH ×2 (02:36→15:02)
[2021-01-24] MEDS ORDERED: HYDROMORPHONE HCL 0.5 MG/0.5 ML INJ IV ONE (02:53)
[2021-01-24] MEDS ORDERED: VANCOMYCIN 250 MG in NA CHLORIDE 0.9% 100 ML IVPB ONE (03:30)
[2021-01-24] MEDS ORDERED: FENTANYL CITR 100 MCG/2 ML IV ONE (04:12)
[2021-01-24 04:13] LABS: Absolute Lymphocytes (CBC) 1.1 K/uL (0.7-4.9); Basophils % 0.9 % (0-1.3); Lymphocytes % 14.5 % (15.3-44.8); MPV 8.4 fL (7.6-11.3); RBC Red Blood Cell Count 2.68 M/uL (4.33-5.43)
[2021-01-24] MEDS ORDERED: NA CHLORIDE 0.9% 100 ML ONE (04:22)
[2021-01-24] MEDS ORDERED: VANCOMYCIN 500 MG/VIAL ONE (04:22)
[2021-01-24 04:24] LABS: Albumin 2.1 g/dL (3.4-5.0); Bilirubin Total 0.4 mg/dL (0.2-1.0); Ferritin 259.5 ng/mL (26-388); Magnesium 1.9 mg/dL (1.8-2.4); Potassium 4.1 mmol/L (3.5-5.1); Protein, Total 5.7 g/dL (6.4-8.2)
--- NOTE | 2021-01-24 08:00 | P.PN ---
Subjective Date of Service: 01/24/21 Primary Care Provider: Dr. Merrill Chief Complaint: Lower extremity wounds Subjective: Other (Patient reports pain to the lower extremities. Patient with chronic pain.) Physical Examination - Vital Signs Temperature: 97.8 F Blood Pressure: 105/60 Pulse: 76 Respirations: 19 Pulse Ox (%): 99 - Studies Laboratory Data (last 24 hrs) 01/23/21 17:26: PT 16.0 H, INR 1.39 01/23/21 17:26: WBC 8.70 D, Hgb 8.7 L, Hct 27.1 L, Plt Count 244 D 01/23/21 17:26: Sodium 139, Potassium 4.4, BUN 27 H, Creatinine 1.86 H, Glucose 213 H, Magnesium 2.0, Total Bilirubin 0.4, AST 9 L, ALT 10 L, Alkaline Phosphatase 124 H Assessment & Plan Discharge Plan: LTAC Plan to discharge in: Greater than 2 days Physician Review Additional Text: Physical exam: Patient alert, cooperative. No significant distress. Heart: Regular rate rhythm Lungs: Clear to auscultation Abdomen: Soft nontender nondistended Extremities: Bandages to the lower extremities bilateral. Impression: Chronic wounds to left lateral lower leg, left foot, left heel, right lateral lower leg, right foot, right heel, sacrum complicated by severe PAD, tobacco abuse with medical noncompliance Diabetes mellitus type 2 Anemia of chronic disease PAD Renal insufficiency History of CAD History of COPD Chronic pain Plan: Chronic wounds to left lateral lower leg, left foot, left heel, right lateral lower leg, right foot, right heel, sacrum complicated by PAD, tobacco abuse with medical noncompliance: Continue with prior recommendations from Infectious Disease. This includes IV vancomycin and Cipro for at least 2-4 weeks. Restart pain medication. Patient with chronic pain. Surgery consulted for possible debridement. Discussed in detail with the patient about the need for long-term acute care facility placement. He is agreeable with long-term acute care facility placement but at another facility. Will have social work discuss this in detail to help transfer patient to another LTAC to continue aggressive IV antibiotic therapy, wound care and hyperbarics. Diabetes mellitus type 2: Continue Accu-Cheks and sliding scale. Will monitor and adjust appropriately. Anemia of chronic disease: Maintain hemoglobin above 7.0. Will monitor closely. Transfuse for hemoglobin less than 7. Renal insufficiency: Nephrology consulted as patient with renal insufficiency and needing long-term antibiotics. History of CAD: Obtain and continue home medications as appropriate. History of COPD: Stable this time. Continue home meds. Chronic pain: Patient with pain pump. This no longer works. Continue with his regular regimen of pain medication. Time Spent Managing Pts Care (In Minutes): 55
[2021-01-24] MEDS ORDERED: VANCOMYCIN/NS 1 gm 1 GM/250 ML BAG IVPB SCH (09:00)
[2021-01-24] MEDS ORDERED: DIPHENHYDRAMINE 50 MG/ML VIAL IV SCH (09:00)
[2021-01-24] MEDS ORDERED: OXYCODONE 80 MG PO SCH (09:00)
[2021-01-24] MEDS: NICOTINE 21 MG/PAT TD SCH (09:15)
[2021-01-24] MEDS: Ciprofloxacin 200mg IV 200 MG/100 ML IV.SOLN. IV SCH ×2 (09:15→20:59)
--- NOTE | 2021-01-24 10:55 | CON ---
Date of Consultation: 01/24/2021 Reason For Service: Bilateral lower extremities and also heel wounds. History Of Present Illness: This is the case of an 81-year-old patient, known by us since last week. He has had debridement of the bilateral lower extremities and bilateral heels due to necrotic wound s over the area. Apparently, the patient has been seen for the last 6 months at [facility]. He w as discharged and he admitted to us with all these wounds once again. When we questioned the , s he understands the patient has to be offloaded, but she stated that he is not able to do so because antwon andujar does whatever he wants and the best she can do is just remind him, but most of the time, he is stil l putting pressure on those region and it shows based on the findings and the location of these press ure ulcers. After debridement, the patient was sent to an LTAC, but apparently they signed out again st medical advice, went home and then showed last night once again in the ER. He was admitted for me dical reasons and a surgical consult once again was obtained. When we questioned about wound care, antwon andujar has not done much in his case and also they still not offloading this area. Past Medical History: See my previous consult. Past Surgical History: See my previous consult. Allergies: SEE MY PREVIOUS CONSULT. Medications: See my previous consult. Review of Systems: The patient listens to you, but he does not follow much advise. He moves around. He could be gettin g area under pressure. Most of the information is obtained from the patient's , who is at bedsid e because he cannot give us much information. Physical Examination: General: The patient is awake, alert. HEENT: Pupils anicteric. Neck: Supple. Chest: Clear. Abdomen: Soft and depressible. Extremities: As before, the patient has ulcers in bilateral legs and bilateral feet. When we looked underneath the dressings, we noticed that it still needs to clean again and has not been cleaned pro perly since last time, and the patient is supposed to be in the clinic today to have further debridem ent, but [facility] Laboratory Data: Blood work was reviewed. Plan: I discussed the case with the primary doctor. He is not letting me to do the dressings at bed side, so I need to do this under anesthesia including these legs once again, but I explained to the p atient and the patient's it does not matter how many times we cleaned that. If they are not com pliance with the titration, with medications, with offloading and dressing changes, debridement will not be enough. The benefits, alternatives, and risks of debridement were fully explained again, whic h include, but not limited to infection, bleeding, damage to adjacent structures, anesthesia complica tion, nonhealing wounds, ND, and even . They also understood this may not relieve any symptoms. He might need more than one surgical intervention. The patient was booked in OR. JAMA/JEFERSON Voice ID: [id number] Report ID: [id number]
[2021-01-24] MEDS: OXYCODONE *CR* 20 MG TAB PO SCH ×2 (11:51→20:54)
[2021-01-24 14:07] LABS: Urine Appearance CLEAR; Urine Bilirubin NEGATIVE (NEG); Urine Blood NEGATIVE (NEG); Urine Color YELLOW; Urine Glucose NEGATIVE (NEG); Urine Protein 1+ (NEG); Urine Specific Gravity 1.015 (1.005-1.030)
--- NOTE | 2021-01-24 14:23 | P.CNS ---
Date of Consult: 01/24/21 Reason for Consult: Lower extremity wounds Primary Care Provider: Dr. Merrill Chief Complaint: Lower extremity wounds History of Present Illness: The patient is a in year old male with a past medical history of diabetes type 2, hypertension, CAD, PVD, GERD, chronic pain, and evidence of bilateral lower extremities, and sacral wound who presents to the emergency department due to worsening of his wound condition. Patient was recently hospitalized at this facility in left arm 01/20 the [facility] to undergo hyperbaric oxygen treatment and have wound care treatment performed. Patient was unhappy with this facility as there is communication issues between him and his and patient states that it is very important for him to be alert because his . As such the patient left AMA that Saturday afternoon and reported back to the emergency department on Saturday. Patient is understanding about the level care he needs and is willing to to be placed at a different LTAC. Patient has nausea, vomiting, shortness breath, chest pain. He does state he is having significant pain in his bilateral lower extremities. Patient is scheduled for a 2nd wound debridement tomorrow a.m. Allergies ciprofloxacin [From Cipro] Allergy (Verified 01/19/21 17:43) Itching morphine Allergy (Verified 10/05/20 13:36) Shortness of breath Home Medications: Alprazolam [Xanax] 1 mg PO TID PRN 01/24/21 Apixaban [Eliquis *] 2.5 mg PO BID 01/24/21 Ascorbic Acid [Vitamin C] 1,000 mg PO DAILY 01/24/21 Furosemide [Lasix] 80 mg PO PRN PRN 01/24/21 Gabapentin 600 mg PO TID 01/24/21 Metoprolol Succinate 12.5 mg PO DAILY 01/24/21 Oxycodone Myristate [Xtampza ER] 36 mg PO BID 01/24/21 Simvastatin 20 mg PO DAILY 01/24/21 Trazodone HCl 100 mg PO BEDTIME 01/24/21 Vit A/Vit C/Vit E/Zinc/Copper [Preservision Areds Softgel] 1 cap PO DAILY 01/24/21 - Past Medical/Surgical History Diabetic: Yes -: Chronic pain -: HTN -: CAD with prior stents -: Diabetes mellitus type 2 insulin-dependent -: Peripheral vascular disease -: Hyperlipidemia -: GERD -: Chronic ulcers, 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 Lives at home. - Family History Father Medical History: Heart disease Mother Medical History: Heart disease - Social History Smoking Status: Unknown if ever smoked Alcohol use: No CD- Drugs: No Caffeine use: Yes Place of Residence: Home Review of Systems 10-point ROS is otherwise unremarkable Physical Examination Temp Pulse Resp BP Pulse Ox 98.1 F 69 20 115/43 L 95 01/24/21 12:00 01/24/21 12:00 01/24/21 12:51 01/24/21 12:00 01/24/21 12:51 General: Acute distress HEENT: Normocephalic Neck: Supple, 2+ carotid pulse no bruit, JVD not distended Respiratory: Clear to auscultation bilaterally, Normal air movement Cardiovascular: No edema, Normal pulses, Regular rate/rhythm Gastrointestinal: Normal bowel sounds, Soft and benign Musculoskeletal: No clubbing, No swelling, No contractures Other Physical/Emotional Findings: left lateral lower extremity skin ulcer: Wound starts at lateral malleolus and extends up the patient's chavez. Wound is unstageable with slough tissue present, tendon exposed. Right lateral lower extremity ulcer: majority black eschar tissue with slough tisue present. Bilateral heel DTI: Non blanchable purple/black discoloration. Right lateral foot DTI x3. Left lateral foot DTI. Laboratory Data (last 24 hrs) 01/23/21 17:26: PT 16.0 H, INR 1.39 01/23/21 17:26: WBC 8.70 D, Hgb 8.7 L, Hct 27.1 L, Plt Count 244 D 01/23/21 17:26: Sodium 139, Potassium 4.4, BUN 27 H, Creatinine 1.86 H, Glucose 213 H, Magnesium 2.0, Total Bilirubin 0.4, AST 9 L, ALT 10 L, Alkaline Phosphatase 124 H Conclusions/Impression: assessment: -multiple wounds of the bilateral extremities -diabetes type 2 - CAD -PVD plan: Continue current antibiotic treatment. Patient scheduled for lower extremity wound debridement for tomorrow. Recommend LTAC placement. -the medical management per primary team -continue to monitor CBC and BMP -continue to monitor for signs of infection Plan of care discussed with Dr. Evangelista Thank you for consultation.
[2021-01-24 14:43] LABS: Urine Microscopic Reflex ORDER UMIC
[2021-01-24] MEDS: GABAPENTIN 300 MG CAP PO SCH ×2 (14:55→20:53)
[2021-01-24] MEDS: HYDROMORPHONE HCL 0.5 MG/0.5 ML INJ IV PRN (14:55)
[2021-01-24] MEDS ORDERED: VANCOMYCIN 1.25 GM in NA CHLORIDE 0.9% 250 ML IVPB SCH ×2 (15:00→21:30)
[2021-01-24 15:27] LABS: Urine Bacteria <20 /HPF (NONE SEEN); Urine RBC NONE SEEN /HPF (NONE SEEN)
[2021-01-24] MEDS: ALPRAZOLAM 1 MG TABLET PO PRN (17:46)
[2021-01-24] MEDS: ATORVASTATIN 10 MG TAB PO SCH (20:53)
[2021-01-24] MEDS ORDERED: OXYCODONE MYRISTATE 36 MG PO SCH (21:00)
[2021-01-24] MEDS: TRAZODONE 50 MG TABLET PO SCH (21:00)
--- NOTE | 2021-01-24 22:54 | P.CNS ---
Date of Consult: 01/24/21 Reason for Consult: TRINA/ CKD Requesting Physician: Zion Guido Primary Care Provider: Dr. Merrill Chief Complaint: Lower extremity wounds History of Present Illness: 81 yo WM CAD, CKD presented to the ER with severe, persistent LE ulcers in the setting of PAD. 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 81-year-old male with history of diabetes mellitus type 2, hypertension, CAD, PVD, GERD, chronic pain and open wounds to the lower extremities presents emergency department for worsening of his wounds to the lower extremities. Patient was recently seen here and transferred to a long- term acute care facility for continued wound care, IV antibiotics, physical therapy, hyperbaric treatments. Patient reports that he did not like it there so he signed himself out against medical advice. Patient with extensive wounds to bilateral lower extremities. Patient was seen by infectious disease and general surgery during his admission here, Infectious Disease recommended ciprofloxacin 200 mg q.12 hr with Benadryl as patient is allergic in addition to renally dose adjusted vancomycin. Recommendation for L tach with hyperbaric oxygen in addition to IV antibiotics for 2-4 weeks. Patient had debridement on 01/16/2021 to the right foot, left foot, left leg. Allergies ciprofloxacin [From Cipro] Allergy (Verified 01/19/21 17:43) Itching morphine Allergy (Verified 10/05/20 13:36) Shortness of breath Home medications list reviewed: Yes Home Medications: Alprazolam [Xanax] 1 mg PO TID PRN 01/24/21 Apixaban [Eliquis *] 2.5 mg PO BID 01/24/21 Ascorbic Acid [Vitamin C] 1,000 mg PO DAILY 01/24/21 Furosemide [Lasix] 80 mg PO PRN PRN 01/24/21 Gabapentin 600 mg PO TID 01/24/21 Metoprolol Succinate 12.5 mg PO DAILY 01/24/21 Oxycodone Myristate [Xtampza ER] 36 mg PO BID 01/24/21 Simvastatin 20 mg PO DAILY 01/24/21 Trazodone HCl 100 mg PO BEDTIME 01/24/21 Vit A/Vit C/Vit E/Zinc/Copper [Preservision Areds Softgel] 1 cap PO DAILY 01/24/21 - Past Medical/Surgical History Diabetic: Yes -: Chronic pain -: HTN -: CAD with prior stents -: Diabetes mellitus type 2 insulin-dependent -: Peripheral vascular disease -: Hyperlipidemia -: GERD -: Chronic ulcers, 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 Lives at home. - Family History Father Medical History: Heart disease Mother Medical History: Heart disease - Social History Smoking Status: Unknown if ever smoked Alcohol use: No CD- Drugs: No Caffeine use: Yes Place of Residence: Home Review of Systems 10-point ROS is otherwise unremarkable General: Weakness Integumentary: Lesions Neurological: Weakness Physical Examination Temp Pulse Resp BP Pulse Ox 98.1 F 64 16 102/45 L 99 01/24/21 17:45 01/24/21 16:00 01/24/21 20:54 01/24/21 16:00 01/24/21 20:54 General: In no apparent distress, Cooperative HEENT: Atraumatic Neck: Supple Respiratory: Clear to auscultation bilaterally Cardiovascular: No edema, Regular rate/rhythm Gastrointestinal: Soft and benign, Non-distended Musculoskeletal: No clubbing, No contractures Integumentary: No cyanosis, Skin breakdown, Skin lesion Neurological: Normal speech Blood work reviewed in the chart. Imagings Data: EXAM DESCRIPTION: RADTib Fib Left01/23/2021 8:53 pm CLINICAL HISTORY: Left leg pain FINDINGS: No fracture is seen. Bones are osteoporotic 2 centimeter lucency is present within the mid fibula. This probably represents focal osteoporosis. A true lesion such as chronic osteomyelitis is possible but probably less likely. If the patient has clinical symptoms to suggest this CT would be recommended Conclusions/Impression: A/P: Continue the current POC and Medications other than the changes listed. AM Labs PRN. Recommend daily weight. Please see the orders for complete details. TRINA likely due to hypovolemia CKD III with proteinuria -Change IVF 1/2NS -No NSAIDs Hypocalcemia -Start Vitamin D3 HTN with CKD -Continue Metoprolol DM II with CKD -Continue RISS Moderate malnutrition -Encourage nutrition Anemia in chronic illness Iron deficiency -Consider IV iron Chronic LE Ulcers with chronic pain -Continue Cipro and Vancomycin -Wound care as ordered Thank you kindly for the consultation.
[2021-01-25] MEDS: NACHLORIDE 0.45% 1,000 ML IV SCH ×3 (00:13→19:00)
[2021-01-25 03:58] LABS: Absolute Lymphocytes (CBC) 1.8 K/uL (0.7-4.9); Basophils % 0.8 % (0-1.3); Lymphocytes % 27.9 % (15.3-44.8); MPV 8.1 fL (7.6-11.3)
[2021-01-25 04:31] LABS: Albumin 1.8 g/dL (3.4-5.0); Bilirubin Total 0.3 mg/dL (0.2-1.0); Magnesium 1.9 mg/dL (1.8-2.4); Potassium 4.7 mmol/L (3.5-5.1); Uric Acid 3.6 mg/dL (3.5-7.2)
[2021-01-25] MEDS: VANCOMYCIN 1.25 GM in NA CHLORIDE 0.9% 250 ML IVPB SCH (06:29)
[2021-01-25] MEDS: INSULIN -REGULAR HUMAN 50 UNIT/0.5 ML ML SQ SCH ×4 (07:30→22:58)
[2021-01-25] MEDS ORDERED: NA CHLORIDE 0.9% 1,000 ML ONE (08:15)
--- NOTE | 2021-01-25 08:22 | P.PN ---
Subjective Date of Service: 01/25/21 Primary Care Provider: Dr. Merrill Chief Complaint: Lower extremity wounds Subjective: Other (Patient stable this time. Patient to have debridement this morning.) Physical Examination - Vital Signs Temperature: 97.3 F Blood Pressure: 114/36 Pulse: 65 Respirations: 16 Pulse Ox (%): 98 - Physical Exam Other Physical/Emotional Findings: left lateral lower extremity skin ulcer: Wound starts at lateral malleolus and extends up the patient's chavez. Wound is unstageable with slough tissue present, tendon exposed. Right lateral lower extremity ulcer: majority black eschar tissue with slough tisue present. Bilateral heel DTI: Non blanchable purple/black discoloration. Right lateral foot DTI x3. Left lateral foot DTI. Assessment & Plan Discharge Plan: LTAC Plan to discharge in: 48 Hours Physician Review Additional Text: Physical exam: Patient alert, cooperative. No significant distress. Heart: Regular rate rhythm Lungs: Clear to auscultation Abdomen: Soft nontender nondistended Extremities: Bandages to the lower extremities bilateral. Pain seems to be well controlled. Impression: Chronic wounds to left lateral lower leg, left foot, left heel, right lateral lower leg, right foot, right heel, sacrum complicated by severe PAD, tobacco abuse with medical noncompliance Diabetes mellitus type 2 Anemia of chronic disease with iron deficiency PAD Acute on chronic renal disease stage III with dehydration History of CAD History of COPD Chronic pain Moderate protein malnutrition Plan: Chronic wounds to left lateral lower leg, left foot, left heel, right lateral lower leg, right foot, right heel, sacrum complicated by PAD, tobacco abuse with medical noncompliance: Continue with IV antibiotic therapy-vancomycin and Cipro. Patient to have debridement today. Hemoglobin low this morning. Will transfuse 1 unit. Will consider IV iron thereafter. Maintain hemoglobin above 7.0. Continue with IV fluids as recommended by nephrology. Case discussed in detail with patient and family yesterday. Discussed best option for the patient to go to a long-term acute care facility to continue aggressive wound care, hyperbarics and long-term IV antibiotic therapy. He and family understand that if he does not receive aggressive care, patient may end up with further complications and eventually amputations. Is too difficult for the to take care of the patient due to his current status. This was also discussed with the daughter who is planning to help as well. All appear to be in agreement. Will have manager social media address this in detail to pursue long-term acute care facility placement. Continue with pain medication. Anticipate possible discharge to long-term acute care facility within the next 2-3 days. Diabetes mellitus type 2: Continue Accu-Cheks and sliding scale. Will monitor and adjust appropriately. Anemia of chronic disease with iron deficiency: Hemoglobin low. Will transfuse 1 unit. Will consider IV iron thereafter. Will discuss with nephrology. Maintain hemoglobin above 7.0. Acute on chronic renal disease with dehydration: Nephrology continues to adjust IV fluids. Continue to monitor closely. Renal function improved. History of CAD: Continue home medication. History of COPD: Stable this time. Continue home meds. Chronic pain: Patient with pain pump. This no longer works. Continue with his regular regimen of pain medication. Will monitor and adjust appropriately. Moderate protein malnutrition: Will have dietary address daily needs. Time Spent Managing Pts Care (In Minutes): 55
[2021-01-25] MEDS: Ciprofloxacin 200mg IV 200 MG/100 ML IV.SOLN. IV SCH ×2 (09:00→22:56)
[2021-01-25] MEDS: METOPROLOL XL 25 MG TAB PO SCH (09:00)
[2021-01-25] MEDS: NICOTINE 21 MG/PAT TD SCH (09:00)
[2021-01-25] MEDS ORDERED: HOME MED 1 EA UNK (Simvastatin [Simvastatin] 20 MG Tablet) PO SCH (09:00)
[2021-01-25] MEDS: OCUVITE (VIT A,C & E/LUTEIN/MINERAL) TABLET PO SCH (09:00)
[2021-01-25] MEDS: ENOXAPARIN 40 MG/0.4 ML SQ SCH (09:00)
[2021-01-25] MEDS: VITAMIN D 5,000 UNIT CAP PO SCH (09:00)
[2021-01-25] MEDS: GABAPENTIN 300 MG CAP PO SCH ×3 (09:00→22:57)
[2021-01-25] MEDS: ASCORBIC ACID 500 MG TABLET PO SCH (09:00)
[2021-01-25] MEDS: OXYCODONE *CR* 20 MG TAB PO SCH ×2 (09:00→22:57)
[2021-01-25] MEDS ORDERED: NA CHLORIDE 0.9% 250 ML ONE (09:35)
[2021-01-25] MEDS ORDERED: FENTANYL CITR 100 MCG/2 ML ONE (10:26)
[2021-01-25] MEDS ORDERED: propofoL 200 MG/20 ML VIAL IV ONE (10:26)
[2021-01-25] MEDS ORDERED: LIDOCAINE 1% MPF 5 ML VIAL ONE (10:27)
[2021-01-25 10:28] LABS: Phosphorus 3.9 mg/dL (2.5-4.9)
[2021-01-25] MEDS ORDERED: COLLAGENASE 30 GM OINTMENT TOP ONE (10:39)
--- NOTE | 2021-01-25 10:44 | P.BOP ---
Preoperative diagnosis: infected necrotic wounds bilateral lower extremities Postoperative diagnosis: same Primary procedure: Excisional subQ debridment: 1. Left leg 20x5cm, 2. Left heel 8x7cm, Secondary procedure: 3. Right foot 5x3cm, 4. Right heel 9x6cm, 5. Right leg 23x5cm Estimated blood loss: <30cc Specimen: none Findings: necrotic tissue Anesthesia: General Transferred to: Recovery Room Condition: Good
[2021-01-25] MEDS ORDERED: ONDANSETRON 4 MG/2 ML VIAL ONE (11:03)
[2021-01-25] MEDS: MEPERIDINE HCL 25 MG/ML SYR ONE ×2 (11:26→11:31)
--- NOTE | 2021-01-25 12:01 | OP ---
Date of Procedure: 01/25/2021 Surgeon: Reji Ortiz MD Preoperative Diagnosis: Infected necrotic wounds, bilateral lower extremities. Postoperative Diagnosis: Infected necrotic wounds, bilateral lower extremities. Procedure: Excisional subcutaneous debridement of 5 areas. 1.Left leg 20 x 5 cm. 2.Left heel 8 x 7 cm. 3.Right foot 5 x 3 cm. 4.Right heel 9 x 6 cm. 5.Right leg 23 x 5 cm. Estimated Blood Loss: Less than 30 mL. Findings: Necrotic tissue. Anesthesia: General. Indications: This is the case of a male, who comes to us with chronic wounds. [facility]. Recently a little bit more than a week ago, he has necroti c wounds below his legs. The has some limitation of what she can do for him. We cleaned his ar ea and getting better. He was sent to an LTAC, but they signed out AMA. He is stay at home, then ev entually came to the hospital. Once again, all the wounds have necrotic tissue. We explained to her in detail the importance of offloading, the importance of nutrition and she seemed to understand, bu t her situation is 1 that she cannot lift him all the time last time, we recommend an LTAC . We explained to her that we can at least help with that. She is going to give it a try once again . In the meantime, I have to clean his ulcers. Benefits, alternatives, and risks were fully explain ed to the patient, which include, but not limited to infection, bleeding, damage to adjacent structur es, anesthesia complication, nonhealing wound, TN, and even . They also understood this may not relieve any symptoms. He might need more than one surgical intervention. If this continued, they u nderstand he is going to end up with amputations of both legs. They signed a consent. Procedure In Detail: The patient was brought to the operating room, placed in supine position. A ti me-out was called. Bilateral lower extremities were prepped and draped in a sterile fashion. Each o ne was done individually using the same technique, which was consisted of the use of 11 blade. We pr oceeded to remove the necrotic tissues. Those areas were black. There was some tendon exposed that also have to be debrided. Each one was done individually. No bone exposed. Hemostasis was obtained with the help of Bovie cauterizer and then the area was covered with Santyl and dressings. The rojelio ent tolerated the procedure well. Hemostasis was obtained before closure. The patient was sent to r ecovery in stable condition. JAMA/JEFERSON Voice ID: [id number] Report ID: [id number]
[2021-01-25 13:49] LABS: Hematocrit 29.6 % (39.6-49.0)
[2021-01-25] MEDS: HYDROMORPHONE HCL 0.5 MG/0.5 ML INJ IV PRN (14:24)
[2021-01-25] MEDS: ALPRAZOLAM 1 MG TABLET PO PRN (17:26)
[2021-01-25] MEDS: GLUCERNA SHAKE 237 ML CAN PO SCH (21:00)
[2021-01-25] MEDS: TRAZODONE 50 MG TABLET PO SCH (21:00)
[2021-01-25] MEDS: JUVEN PACKET PO SCH (21:00)
[2021-01-25] MEDS: ATORVASTATIN 10 MG TAB PO SCH (22:56)
[2021-01-26] MEDS: HYDROMORPHONE HCL 0.5 MG/0.5 ML INJ IV PRN ×2 (02:50→10:43)
[2021-01-26 04:49] LABS: Absolute Lymphocytes (CBC) 1.5 K/uL (0.7-4.9); Basophils % 0.9 % (0-1.3); Hematocrit 24.9 % (39.6-49.0); Lymphocytes % 18.2 % (15.3-44.8); MPV 8.3 fL (7.6-11.3); RBC Red Blood Cell Count 2.77 M/uL (4.33-5.43)
[2021-01-26] MEDS: NACHLORIDE 0.45% 1,000 ML IV SCH ×3 (05:00→17:15)
[2021-01-26 05:01] LABS: ALT/SGPT 9 U/L (12-78); AST/SGOT 7 U/L (15-37); Albumin 1.8 g/dL (3.4-5.0); BUN Blood Urea Nitrogen 24 mg/dL (7-18); Bicarbonate 31 mmol/L (21-32); Bilirubin Total 0.3 mg/dL (0.2-1.0); Glucose Level 235 mg/dL (74-106); Magnesium 1.8 mg/dL (1.8-2.4); Potassium 4.9 mmol/L (3.5-5.1); Sodium Level 143 mmol/L (136-145)
[2021-01-26 05:26] LABS: Alkaline Phosphatase ND U/L (45-117)
[2021-01-26] MEDS: INSULIN -REGULAR HUMAN 50 UNIT/0.5 ML ML SQ SCH ×5 (07:30→22:33)
[2021-01-26] MEDS: OXYCODONE *CR* 20 MG TAB PO SCH ×2 (08:44→21:10)
[2021-01-26] MEDS: GABAPENTIN 300 MG CAP PO SCH ×3 (08:45→21:09)
[2021-01-26] MEDS: VITAMIN D 5,000 UNIT CAP PO SCH (08:45)
[2021-01-26] MEDS: OCUVITE (VIT A,C & E/LUTEIN/MINERAL) TABLET PO SCH (08:45)
[2021-01-26] MEDS: METOPROLOL XL 25 MG TAB PO SCH (08:45)
[2021-01-26] MEDS: ENOXAPARIN 40 MG/0.4 ML SQ SCH (08:47)
[2021-01-26] MEDS: NICOTINE 21 MG/PAT TD SCH (08:47)
[2021-01-26] MEDS: ASCORBIC ACID 500 MG TABLET PO SCH (08:47)
[2021-01-26] MEDS: JUVEN PACKET PO SCH ×2 (08:48→21:10)
[2021-01-26] MEDS: GLUCERNA SHAKE 237 ML CAN PO SCH ×2 (08:48→21:10)
[2021-01-26] MEDS: Ciprofloxacin 200mg IV 200 MG/100 ML IV.SOLN. IV SCH ×2 (08:51→21:07)
[2021-01-26] MEDS ORDERED: MAGNESIUM SULFATE 1 gm IVPB 1 GM/100 ML BAG IV ONE (09:00)
--- NOTE | 2021-01-26 09:09 | P.PN ---
Subjective Date of Service: 01/26/21 Primary Care Provider: Dr. Merrill Chief Complaint: Lower extremity wounds Subjective: Improving, Doing well Physical Examination - Vital Signs Temperature: 97.9 F Blood Pressure: 135/52 Pulse: 73 Respirations: 19 Pulse Ox (%): 97 - Physical Exam Other Physical/Emotional Findings: left lateral lower extremity skin ulcer: Wound starts at lateral malleolus and extends up the patient's chavez. Wound is unstageable with slough tissue present, tendon exposed. Right lateral lower extremity ulcer: majority black eschar tissue with slough tisue present. Bilateral heel DTI: Non blanchable purple/black discoloration. Right lateral foot DTI x3. Left lateral foot DTI. Assessment & Plan Discharge Plan: Other (SNF) Plan to discharge in: 48 Hours Physician Review Additional Text: Physical exam: Patient alert, cooperative. No significant distress. Heart: Regular rate rhythm Lungs: Clear to auscultation Abdomen: Soft nontender nondistended Extremities: Bandages to the lower extremities bilateral. Pain seems to be well controlled. Impression: Chronic infected open ulcers/wounds to left lateral lower leg, left foot, left heel, right lateral lower leg, right foot, right heel, sacrum complicated by severe diabetic PVD, tobacco abuse with medical noncompliance status post excisional subcutaneous debridement of multiple areas Diabetes mellitus type 2 Anemia of chronic disease with iron deficiency Acute on chronic renal disease stage III with dehydration History of CAD History of COPD Chronic pain Moderate protein malnutrition Plan: Chronic infected open ulcers/wounds to left lateral lower leg, left foot, left heel, right lateral lower leg, right foot, right heel, sacrum complicated by severe diabetic PVD, tobacco abuse with medical noncompliance status post excisional subcutaneous debridement of multiple areas: Continue with IV antibiotic therapy-vancomycin and Cipro. Patient had debridement yesterday this included excisional subcutaneous debridements of multiple areas including left heel, left leg, right foot, right heel, and right leg. Hemoglobin remains stable. Maintain hemoglobin above 7.0. Continue with wound care, IV antibiotic therapy. Plan of care discussed in detail with family. Patient now wants to go to [facility]. This would allow him to be closer to home. [facility] would also allow him to continue hyperbaric, wound care and follow up with the team that he sees here. This includes Nephrology, Infectious Disease and surgery. This was discussed in detail with family, and nephrology. Will pursue plan of care as above. Will discuss with dialysis social worker. Diabetes mellitus type 2: Continue Accu-Cheks and sliding scale. Will monitor and adjust appropriately. Anemia of chronic disease with iron deficiency: Hemoglobin remained stable after transfusion. Continue to monitor closely. Maintain hemoglobin above 7.0. Acute on chronic renal disease with dehydration: Continue with Nephrology recommendations. History of CAD: Continue home medication. History of COPD: Stable this time. Continue home meds. Chronic pain: Patient with pain pump. This no longer works. Continue with his regular regimen of pain medication. Will monitor and adjust appropriately. Moderate protein malnutrition: Will have dietary address daily needs. Time Spent Managing Pts Care (In Minutes): 55
--- NOTE | 2021-01-26 11:39 | P.PN ---
Subjective Date of Service: 01/26/21 Primary Care Provider: Dr. Merrill Chief Complaint: Lower extremity wounds Patient seen and examined at bedside-has severe pain to bilateral LE s/p 2nd debridement. Denies N/V/D, SOB, chest pain. Review of Systems 10-point ROS is otherwise unremarkable Physical Examination - Vital Signs Temperature: 97.9 F Blood Pressure: 135/52 Pulse: 73 Respirations: 19 Pulse Ox (%): 97 - Studies Microbiology 01/23/21 17:45 Blood - Blood Aerobic Blood Culture - Preliminary No growth in 24 hours. 01/23/21 17:45 Blood - Blood Anaerobic Blood Culture - Preliminary No growth in 24 hours. 01/23/21 17:26 Blood - Blood Aerobic Blood Culture - Preliminary No growth in 24 hours. 01/23/21 17:26 Blood - Blood Anaerobic Blood Culture - Preliminary No growth in 24 hours. Acetaminophen (Acetaminophen 500 Mg Tab) 500 mg PO Q4HP PRN PRN Reason: Pain scale 2-4 (Mild) Last Admin: 01/24/21 17:45 Dose: 500 mg Documented by: Alprazolam (Alprazolam 1 Mg Tablet) 1 mg PO TID PRN PRN Reason: ANXIETY Last Admin: 01/25/21 17:26 Dose: 1 mg Documented by: Ascorbic Acid (Ascorbic Acid 500 Mg Tablet) 1,000 mg PO DAILY [facility] Last Admin: 01/26/21 08:47 Dose: 1,000 mg Documented by: Atorvastatin Calcium (Atorvastatin 10 Mg Tab) 10 mg PO BEDTIME [facility] Last Admin: 01/25/21 22:56 Dose: 10 mg Documented by: Cholecalciferol (Vitamin D 5,000 Unit Cap) 5,000 unit PO DAILY [facility] Last Admin: 01/26/21 08:45 Dose: 5,000 unit Documented by: Emollient Gel (Medihoney 44 Ml Topical Tube) 1 appl TOP DAILY [facility] Enoxaparin Sodium (Enoxaparin 40 Mg/0.4 Ml) 40 mg SQ DAILY [facility] Last Admin: 01/26/21 08:47 Dose: 40 mg Documented by: Enteral Nutritional Formula (Glucerna Shake 237 Ml Can) 237 ml PO BID [facility] Last Admin: 01/26/21 08:48 Dose: 237 ml Documented by: Gabapentin (Gabapentin 300 Mg Cap) 600 mg PO TID [facility] Last Admin: 01/26/21 08:45 Dose: 600 mg Documented by: Hydromorphone HCl (Hydromorphone Hcl 0.5 Mg/0.5 Ml Inj) 0.5 mg IV Q4H PRN PRN Reason: Pain scale 5-7 (Moderate) Last Admin: 01/26/21 10:43 Dose: 0.5 mg Documented by: Ciprofloxacin/Dextrose (Cipro 200 Mg/100 Ml Ivpb (Premix)) 200 mg in 100 mls @ 100 mls/hr IV Q12HR [facility]; Protocol Last Admin: 01/26/21 08:51 Dose: 100 mls Documented by: Vancomycin HCl 1.25 gm/ Sodium (Chloride) 250 mls @ 150 mls/hr IVPB Q36H [facility] Last Admin: 01/25/21 06:29 Dose: 250 mls Documented by: Sodium Chloride (Sodium Chloride 0.45%) 1,000 mls @ 100 mls/hr IV .Q10H [facility] Last Admin: 01/26/21 05:00 Dose: 1,000 mls Documented by: Insulin Human Regular (Insulin -Regular Human 50 Unit/0.5 Ml Ml) 0 unit SQ ACHS [facility]; Protocol Last Admin: 01/26/21 07:30 Dose: Not Given Documented by: L-Arginine/L-Glutamine/HMB (Antolin Packet) 1 pkt PO BID [facility] Last Admin: 01/26/21 08:48 Dose: 1 pkt Documented by: Metoprolol Succinate (Metoprolol Xl 25 Mg Tab) 12.5 mg PO DAILY [facility] Last Admin: 01/26/21 08:45 Dose: 12.5 mg Documented by: Multivitamins/Minerals (Ocuvite (Vit A,C & E/Lutein/Mineral) Tablet) 1 tab PO DAILY [facility] Last Admin: 01/26/21 08:45 Dose: 1 tab Documented by: Nicotine (Nicotine 21 Mg/Pat) 21 mg TD DAILY [facility] Last Admin: 01/26/21 08:47 Dose: Not Given Documented by: Ondansetron HCl (Ondansetron 4 Mg/2 Ml Vial) 4 mg IV Q6HP PRN PRN Reason: NAUSEA / VOMITING Last Admin: 01/26/21 09:00 Dose: 4 mg Documented by: Oxycodone HCl (Oxycodone *Cr* 20 Mg Tab) 80 mg PO Q12HR [facility] Last Admin: 01/26/21 08:44 Dose: 80 mg Documented by: Sodium Chloride (Flush Normal Saline 10 Ml) 10 ml IV BID [facility] Last Admin: 01/26/21 08:47 Dose: 10 ml Documented by: Trazodone HCl (Trazodone 50 Mg Tablet) 100 mg PO BEDTIME [facility] Last Admin: 01/25/21 21:00 Dose: 100 mg Documented by: Assessment And Plan - Plan Physical Exam General: Acute distress HEENT: Normocephalic Neck: Supple, 2+ carotid pulse no bruit, JVD not distended Respiratory: Clear to auscultation bilaterally, Normal air movement Cardiovascular: No edema, Normal pulses, Regular rate/rhythm Gastrointestinal: Normal bowel sounds, Soft and benign Musculoskeletal: No clubbing, No swelling, No contractures Other Physical/Emotional Findings: left lateral lower extremity skin ulcer: Wound starts at lateral malleolus and extends up the patient's chavez. Wound is unstageable with slough tissue present, tendon exposed. Right lateral lower extremity ulcer: majority black eschar tissue with slough tisue present. Bilateral heel DTI: Non blanchable purple/black discoloration. Right lateral foot DTI x3. Left lateral foot DTI. Sacrococcyx stage 3 ulcer. Antibioitcs: vanocmycin: start: 01/16 stop: 02/27 Indication: osteomyelitis ciprofloxacin start: 01/19 stop: 03/02 indication: osteomyelitis Assessment: -multiple wounds of the bilateral extremities -sacrococcyx stage 3 wound -anemia -protein caloric malnutrition -diabetes type 2 - CAD -PVD -renal insufficiency Plan: -Continue current antibiotic treatment. Appreciate dose adjustment via pharmancy. Keep vanco trough range between 10-15. LW wounds-continue current dressing. -to sacrococcyx wound: medihoney and foam qMWF -the medical management per primary team -continue to monitor CBC and BMP -continue to monitor for signs of infection Plan of care discussed with Dr. Evangelista Thank you for consultation.
--- NOTE | 2021-01-26 12:57 | PN ---
Subjective: Status post bilateral lower extremities and feet and heels debridement. The patient is doing well, tolerating diet. Objective: Chest: Clear. Extremities: Good capillary refill. Plan: Continue offloading, nutrition, and wound care. [facility] if he gets [facility]. JAMA/JEFERSON Voice ID: [id number] Report ID: [id number]
[2021-01-26 12:59] LABS: Hematocrit 26.3 % (39.6-49.0)
[2021-01-26] MEDS: MEDIHONEY 44 ML TOPICAL TUBE TOP SCH (14:47)
[2021-01-26] MEDS: VANCOMYCIN 1.25 GM in NA CHLORIDE 0.9% 250 ML IVPB SCH (18:00)
--- NOTE | 2021-01-26 19:14 | P.PN ---
Date of Service: 01/26/21 Vital Signs Temp Pulse Resp BP Pulse Ox 97.9 F 65 22 H 103/43 L 99 01/26/21 16:00 01/26/21 16:00 01/26/21 16:00 01/26/21 16:00 01/26/21 16:00 Medications Acetaminophen (Acetaminophen 500 Mg Tab) 500 mg PO Q4HP PRN PRN Reason: Pain scale 2-4 (Mild) Last Admin: 01/24/21 17:45 Dose: 500 mg Documented by: Alprazolam (Alprazolam 1 Mg Tablet) 1 mg PO TID PRN PRN Reason: ANXIETY Last Admin: 01/25/21 17:26 Dose: 1 mg Documented by: Ascorbic Acid (Ascorbic Acid 500 Mg Tablet) 1,000 mg PO DAILY [facility] Last Admin: 01/26/21 08:47 Dose: 1,000 mg Documented by: Atorvastatin Calcium (Atorvastatin 10 Mg Tab) 10 mg PO BEDTIME [facility] Last Admin: 01/25/21 22:56 Dose: 10 mg Documented by: Cholecalciferol (Vitamin D 5,000 Unit Cap) 5,000 unit PO DAILY [facility] Last Admin: 01/26/21 08:45 Dose: 5,000 unit Documented by: Emollient Gel (Medihoney 44 Ml Topical Tube) 1 appl TOP DAILY [facility] Last Admin: 01/26/21 14:47 Dose: 1 haider Documented by: Enoxaparin Sodium (Enoxaparin 40 Mg/0.4 Ml) 40 mg SQ DAILY [facility] Last Admin: 01/26/21 08:47 Dose: 40 mg Documented by: Enteral Nutritional Formula (Glucerna Shake 237 Ml Can) 237 ml PO BID [facility] Last Admin: 01/26/21 08:48 Dose: 237 ml Documented by: Gabapentin (Gabapentin 300 Mg Cap) 600 mg PO TID [facility] Last Admin: 01/26/21 14:47 Dose: 600 mg Documented by: Hydromorphone HCl (Hydromorphone Hcl 0.5 Mg/0.5 Ml Inj) 0.5 mg IV Q4H PRN PRN Reason: Pain scale 5-7 (Moderate) Last Admin: 01/26/21 10:43 Dose: 0.5 mg Documented by: Ciprofloxacin/Dextrose (Cipro 200 Mg/100 Ml Ivpb (Premix)) 200 mg in 100 mls @ 100 mls/hr IV Q12HR [facility]; Protocol Last Admin: 01/26/21 08:51 Dose: 100 mls Documented by: Vancomycin HCl 1.25 gm/ Sodium (Chloride) 250 mls @ 150 mls/hr IVPB Q36H [facility] Last Admin: 01/26/21 18:00 Dose: Not Given Documented by: Sodium Chloride (Sodium Chloride 0.45%) 1,000 mls @ 100 mls/hr IV .Q10H [facility] Last Admin: 01/26/21 17:15 Dose: 1,000 mls Documented by: Insulin Human Regular (Insulin -Regular Human 50 Unit/0.5 Ml Ml) 0 unit SQ ACHS [facility]; Protocol Last Admin: 01/26/21 17:15 Dose: 2 unit Documented by: L-Arginine/L-Glutamine/HMB (Antolin Packet) 1 pkt PO BID [facility] Last Admin: 01/26/21 08:48 Dose: 1 pkt Documented by: Metoprolol Succinate (Metoprolol Xl 25 Mg Tab) 12.5 mg PO DAILY [facility] Multivitamins/Minerals (Ocuvite (Vit A,C & E/Lutein/Mineral) Tablet) 1 tab PO DAILY [facility] Last Admin: 01/26/21 08:45 Dose: 1 tab Documented by: Nicotine (Nicotine 21 Mg/Pat) 21 mg TD DAILY [facility] Last Admin: 01/26/21 08:47 Dose: Not Given Documented by: Ondansetron HCl (Ondansetron 4 Mg/2 Ml Vial) 4 mg IV Q6HP PRN PRN Reason: NAUSEA / VOMITING Last Admin: 01/26/21 09:00 Dose: 4 mg Documented by: Oxycodone HCl (Oxycodone *Cr* 20 Mg Tab) 80 mg PO Q12HR [facility] Last Admin: 01/26/21 08:44 Dose: 80 mg Documented by: Sodium Chloride (Flush Normal Saline 10 Ml) 10 ml IV BID [facility] Last Admin: 01/26/21 08:47 Dose: 10 ml Documented by: Trazodone HCl (Trazodone 50 Mg Tablet) 100 mg PO BEDTIME [facility] Last Admin: 01/25/21 21:00 Dose: 100 mg Documented by: Microbiology Results 01/23/21 17:45 Blood - Blood Aerobic Blood Culture - Preliminary No growth in 24 hours. 01/23/21 17:45 Blood - Blood Anaerobic Blood Culture - Preliminary No growth in 24 hours. 01/23/21 17:26 Blood - Blood Aerobic Blood Culture - Preliminary No growth in 24 hours. 01/23/21 17:26 Blood - Blood Anaerobic Blood Culture - Preliminary No growth in 24 hours. Assessment/ Plan: Nephrology No acute cardiac or pulmonary complaints. No CP or SOB. No acute events overnight. Vitals, medications, blood work and imaging reviewed in the chart. General: In no apparent distress, Cooperative HEENT: Atraumatic Neck: Supple Respiratory: Clear to auscultation bilaterally Cardiovascular: No edema, Regular rate/rhythm Gastrointestinal: Soft and benign, Non-distended Musculoskeletal: No clubbing, No contractures Integumentary: No cyanosis, Skin breakdown, Skin lesion Neurological: Normal speech Blood work reviewed in the chart. Imagings Data: EXAM DESCRIPTION: RADTib Fib Left01/23/2021 8:53 pm CLINICAL HISTORY: Left leg pain FINDINGS: No fracture is seen. Bones are osteoporotic 2 centimeter lucency is present within the mid fibula. This probably represents focal osteoporosis. A true lesion such as chronic osteomyelitis is possible but probably less likely. If the patient has clinical symptoms to suggest this CT would be recommended Conclusions/Impression: A/P: Continue the current POC and Medications other than the changes listed. AM Labs PRN. Recommend daily weight. Please see the orders for complete details. TRINA likely due to hypovolemia CKD III with proteinuria -Continue IVF 1/2NS -No NSAIDs Hypocalcemia -Continue Vitamin D3 HTN with CKD -Continue Metoprolol DM II with CKD -Continue RISS Moderate malnutrition -Encourage nutrition Anemia in chronic illness Iron deficiency -Consider IV iron Chronic LE Ulcers with chronic pain -Continue Cipro and Vancomycin -Wound care as ordered
--- NOTE | 2021-01-26 19:26 | P.PN ---
Date of Service: 01/26/21 Vital Signs Temp Pulse Resp BP Pulse Ox 97.9 F 65 22 H 103/43 L 99 01/26/21 16:00 01/26/21 16:00 01/26/21 16:00 01/26/21 16:00 01/26/21 16:00 Medications Acetaminophen (Acetaminophen 500 Mg Tab) 500 mg PO Q4HP PRN PRN Reason: Pain scale 2-4 (Mild) Last Admin: 01/24/21 17:45 Dose: 500 mg Documented by: Alprazolam (Alprazolam 1 Mg Tablet) 1 mg PO TID PRN PRN Reason: ANXIETY Last Admin: 01/25/21 17:26 Dose: 1 mg Documented by: Ascorbic Acid (Ascorbic Acid 500 Mg Tablet) 1,000 mg PO DAILY [facility] Last Admin: 01/26/21 08:47 Dose: 1,000 mg Documented by: Atorvastatin Calcium (Atorvastatin 10 Mg Tab) 10 mg PO BEDTIME [facility] Last Admin: 01/25/21 22:56 Dose: 10 mg Documented by: Calcitriol (Calcitrol 0.25 Mcg Cap) 0.5 mcg PO DAILY [facility] Cholecalciferol (Vitamin D 5,000 Unit Cap) 5,000 unit PO DAILY [facility] Last Admin: 01/26/21 08:45 Dose: 5,000 unit Documented by: Emollient Gel (Medihoney 44 Ml Topical Tube) 1 appl TOP DAILY [facility] Last Admin: 01/26/21 14:47 Dose: 1 haider Documented by: Enoxaparin Sodium (Enoxaparin 40 Mg/0.4 Ml) 40 mg SQ DAILY [facility] Last Admin: 01/26/21 08:47 Dose: 40 mg Documented by: Enteral Nutritional Formula (Glucerna Shake 237 Ml Can) 237 ml PO BID [facility] Last Admin: 01/26/21 08:48 Dose: 237 ml Documented by: Gabapentin (Gabapentin 300 Mg Cap) 600 mg PO TID [facility] Last Admin: 01/26/21 14:47 Dose: 600 mg Documented by: Hydromorphone HCl (Hydromorphone Hcl 0.5 Mg/0.5 Ml Inj) 0.5 mg IV Q4H PRN PRN Reason: Pain scale 5-7 (Moderate) Last Admin: 01/26/21 10:43 Dose: 0.5 mg Documented by: Ciprofloxacin/Dextrose (Cipro 200 Mg/100 Ml Ivpb (Premix)) 200 mg in 100 mls @ 100 mls/hr IV Q12HR [facility]; Protocol Last Admin: 01/26/21 08:51 Dose: 100 mls Documented by: Vancomycin HCl 1.25 gm/ Sodium (Chloride) 250 mls @ 150 mls/hr IVPB Q36H [facility] Last Admin: 01/26/21 18:00 Dose: Not Given Documented by: Sodium Chloride (Sodium Chloride 0.45%) 1,000 mls @ 100 mls/hr IV .Q10H [facility] Last Admin: 01/26/21 17:15 Dose: 1,000 mls Documented by: Albumin Human (Albumin 25%) 100 mls @ 100 mls/hr IV Q6H [facility] Stop: 01/27/21 08:59 Insulin Human Regular (Insulin -Regular Human 50 Unit/0.5 Ml Ml) 0 unit SQ ACHS [facility]; Protocol Last Admin: 01/26/21 17:15 Dose: 2 unit Documented by: L-Arginine/L-Glutamine/HMB (Antolin Packet) 1 pkt PO BID [facility] Last Admin: 01/26/21 08:48 Dose: 1 pkt Documented by: Metoprolol Succinate (Metoprolol Xl 25 Mg Tab) 12.5 mg PO DAILY [facility] Multivitamins/Minerals (Ocuvite (Vit A,C & E/Lutein/Mineral) Tablet) 1 tab PO DAILY [facility] Last Admin: 01/26/21 08:45 Dose: 1 tab Documented by: Nicotine (Nicotine 21 Mg/Pat) 21 mg TD DAILY [facility] Last Admin: 01/26/21 08:47 Dose: Not Given Documented by: Ondansetron HCl (Ondansetron 4 Mg/2 Ml Vial) 4 mg IV Q6HP PRN PRN Reason: NAUSEA / VOMITING Last Admin: 01/26/21 09:00 Dose: 4 mg Documented by: Oxycodone HCl (Oxycodone *Cr* 20 Mg Tab) 80 mg PO Q12HR [facility] Last Admin: 01/26/21 08:44 Dose: 80 mg Documented by: Sodium Chloride (Flush Normal Saline 10 Ml) 10 ml IV BID [facility] Last Admin: 01/26/21 08:47 Dose: 10 ml Documented by: Trazodone HCl (Trazodone 50 Mg Tablet) 100 mg PO BEDTIME [facility] Last Admin: 01/25/21 21:00 Dose: 100 mg Documented by: Microbiology Results 01/23/21 17:45 Blood - Blood Aerobic Blood Culture - Preliminary No growth in 24 hours. 01/23/21 17:45 Blood - Blood Anaerobic Blood Culture - Preliminary No growth in 24 hours. 01/23/21 17:26 Blood - Blood Aerobic Blood Culture - Preliminary No growth in 24 hours. 01/23/21 17:26 Blood - Blood Anaerobic Blood Culture - Preliminary No growth in 24 hours. Assessment/ Plan: Nephrology No acute cardiac or pulmonary complaints. No CP or SOB. Weakness and fatigue. No acute events overnight. Vitals, medications, blood work and imaging reviewed in the chart. General: In no apparent distress, Cooperative HEENT: Atraumatic Neck: Supple Respiratory: Clear to auscultation bilaterally Cardiovascular: No edema, Regular rate/rhythm Gastrointestinal: Soft and benign, Non-distended Musculoskeletal: No clubbing, No contractures Integumentary: No cyanosis, Skin breakdown, Skin lesion Neurological: Normal speech Blood work reviewed in the chart. Imagings Data: EXAM DESCRIPTION: RADTib Fib Left01/23/2021 8:53 pm CLINICAL HISTORY: Left leg pain FINDINGS: No fracture is seen. Bones are osteoporotic 2 centimeter lucency is present within the mid fibula. This probably represents focal osteoporosis. A true lesion such as chronic osteomyelitis is possible but probably less likely. If the patient has clinical symptoms to suggest this CT would be recommended Conclusions/Impression: A/P: Continue the current POC and Medications other than the changes listed. AM Labs PRN. Recommend daily weight. Please see the orders for complete details. TRINA likely due to hypovolemia CKD III with proteinuria -Continue IVF 1/2NS -No NSAIDs Hypocalcemia -Continue Vitamin D3 HTN with CKD complicated by hypotension -Continue Metoprolol -Give IV Albumin X3 doses DM II with CKD -Continue RISS Moderate malnutrition -Encourage nutrition -Continue Promod Anemia in chronic illness Iron deficiency -Consider IV iron Chronic LE Ulcers with chronic pain -Continue Cipro and Vancomycin -Wound care as ordered
[2021-01-26] MEDS: TRAZODONE 50 MG TABLET PO SCH (21:00)
[2021-01-26] MEDS: ALBUMIN HUMAN 25% 100 ML IV SCH (21:05)
[2021-01-26] MEDS: ATORVASTATIN 10 MG TAB PO SCH (21:09)
[2021-01-27] MEDS: ALBUMIN HUMAN 25% 100 ML IV SCH ×2 (02:00→08:16)
[2021-01-27] MEDS: NACHLORIDE 0.45% 1,000 ML IV SCH ×3 (05:00→21:25)
[2021-01-27 06:46] LABS: Absolute Lymphocytes (CBC) 1.8 K/uL (0.7-4.9); Basophils % 0.7 % (0-1.3); Hematocrit 22.5 % (39.6-49.0); Lymphocytes % 22.6 % (15.3-44.8); MPV 8.4 fL (7.6-11.3); RBC Red Blood Cell Count 2.52 M/uL (4.33-5.43)
[2021-01-27 07:20] LABS: ALT/SGPT 9 U/L (12-78); AST/SGOT 12 U/L (15-37); Albumin 2.4 g/dL (3.4-5.0); BUN Blood Urea Nitrogen 31 mg/dL (7-18); Bicarbonate 30 mmol/L (21-32); Bilirubin Total 0.4 mg/dL (0.2-1.0); Glucose Level 90 mg/dL (74-106); Potassium 4.4 mmol/L (3.5-5.1); Protein, Total 5.4 g/dL (6.4-8.2); Sodium Level 141 mmol/L (136-145)
--- NOTE | 2021-01-27 07:20 | P.PN ---
Subjective Date of Service: 01/27/21 Primary Care Provider: Dr. Merrill Chief Complaint: Lower extremity wounds Subjective: Improving, Doing well Physical Examination - Vital Signs Temperature: 97.9 F Blood Pressure: 103/43 Pulse: 65 Respirations: 18 Pulse Ox (%): 99 - Physical Exam Other Physical/Emotional Findings: left lateral lower extremity skin ulcer: Wound starts at lateral malleolus and extends up the patient's chavez. Wound is unstageable with slough tissue present, tendon exposed. Right lateral lower extremity ulcer: majority black eschar tissue with slough tisue present. Bilateral heel DTI: Non blanchable purple/black discoloration. Right lateral foot DTI x3. Left lateral foot DTI. Assessment & Plan Discharge Plan: Other (halfway facility) Plan to discharge in: 48 Hours Physician Review Additional Text: Physical exam: Patient alert, cooperative. No significant distress. Heart: Regular rate rhythm Lungs: Clear to auscultation Abdomen: Soft nontender nondistended Extremities: Bandages to the lower extremities bilateral. Pain seems to be well controlled. Impression: Chronic infected open ulcers/wounds to left lateral lower leg, left foot, left heel, right lateral lower leg, right foot, right heel, sacrum complicated by severe diabetic PVD, tobacco abuse with medical noncompliance status post excisional subcutaneous debridement of multiple areas Diabetes mellitus type 2 Anemia of chronic disease with iron deficiency Acute on chronic renal disease stage III with dehydration History of CAD History of COPD Chronic pain Moderate protein malnutrition Plan: Chronic infected open ulcers/wounds to left lateral lower leg, left foot, left heel, right lateral lower leg, right foot, right heel, sacrum complicated by severe diabetic PVD, tobacco abuse with medical noncompliance status post excisional subcutaneous debridement of multiple areas: Patient remains stable. Pain well controlled. Continue with IV antibiotic therapy-vancomycin and Cipro. Patient status post debridement this included excisional subcutaneous debridements of multiple areas including left heel, left leg, right foot, right heel, and right leg. Hemoglobin low. Will transfuse 1 unit of blood today. Maintain hemoglobin above 7.5. Will also start iron supplementation. Patient desires to go to [facility]. This would allow him to be closer to home. [facility] would also allow him to continue hyperbaric, wound care and follow up with the team that he sees here. This includes Nephrology, Infectious Disease and surgery. This was discussed in detail with family, and nephrology. Will pursue plan of care as above. Will discuss with social services director. Diabetes mellitus type 2: Continue Accu-Cheks and sliding scale. Will monitor and adjust appropriately. Anemia of chronic disease with iron deficiency: Will transfuse 1 unit of blood. Maintain hemoglobin above 7.5. Will start iron supplementation. Acute on chronic renal disease with dehydration: Renal function appears to baseline. Consider holding IV fluids. Continue with Nephrology recommendations. History of CAD: Continue home medication. History of COPD: Stable this time. Continue home meds. Chronic pain: Patient with pain pump. This no longer works. Continue with his regular regimen of pain medication. Will monitor and adjust appropriately. Moderate protein malnutrition: Will have dietary address daily needs. Time Spent Managing Pts Care (In Minutes): 55
[2021-01-27 07:22] LABS: Alkaline Phosphatase ND U/L (45-117)
[2021-01-27] MEDS: INSULIN -REGULAR HUMAN 50 UNIT/0.5 ML ML SQ SCH ×4 (07:30→21:25)
[2021-01-27] MEDS: JUVEN PACKET PO SCH ×2 (08:11→21:24)
[2021-01-27] MEDS: Ciprofloxacin 200mg IV 200 MG/100 ML IV.SOLN. IV SCH ×2 (08:11→21:23)
[2021-01-27] MEDS: GLUCERNA SHAKE 237 ML CAN PO SCH ×2 (08:12→21:24)
[2021-01-27] MEDS: ENOXAPARIN 40 MG/0.4 ML SQ SCH (08:14)
[2021-01-27] MEDS: NICOTINE 21 MG/PAT TD SCH (08:14)
[2021-01-27] MEDS: CALCITROL 0.25 MCG CAP PO SCH (08:15)
[2021-01-27] MEDS: ASCORBIC ACID 500 MG TABLET PO SCH (08:15)
[2021-01-27] MEDS: OCUVITE (VIT A,C & E/LUTEIN/MINERAL) TABLET PO SCH (08:15)
[2021-01-27] MEDS: VITAMIN D 5,000 UNIT CAP PO SCH (08:15)
[2021-01-27] MEDS: GABAPENTIN 300 MG CAP PO SCH ×3 (08:15→21:24)
[2021-01-27] MEDS: FERROUS SULFATE 325 MG TAB PO SCH ×2 (08:16→21:24)
[2021-01-27] MEDS: OXYCODONE *CR* 20 MG TAB PO SCH ×2 (08:18→21:24)
[2021-01-27] MEDS: METOPROLOL XL 25 MG TAB PO SCH (08:19)
[2021-01-27] MEDS: MEDIHONEY 44 ML TOPICAL TUBE TOP SCH (09:52)
[2021-01-27] MEDS ORDERED: NA CHLORIDE 0.9% 250 ML ONE (10:03)
[2021-01-27] MEDS ORDERED: FUROSEMIDE 20 MG/ 2ML VIAL IV ONE (13:30)
[2021-01-27] MEDS: HYDROMORPHONE HCL 0.5 MG/0.5 ML INJ IV PRN (14:11)
[2021-01-27 15:21] LABS: Hematocrit 26.3 % (39.6-49.0)
[2021-01-27] MEDS: ATORVASTATIN 10 MG TAB PO SCH (21:24)
[2021-01-27] MEDS: TRAZODONE 50 MG TABLET PO SCH (21:24)
--- NOTE | 2021-01-27 21:53 | P.PN ---
Date of Service: 01/27/21 Vital Signs Temp Pulse Resp BP Pulse Ox 97 F 65 17 113/42 L 98 01/27/21 19:55 01/27/21 19:55 01/27/21 21:24 01/27/21 19:55 01/27/21 21:24 Medications Acetaminophen (Acetaminophen 500 Mg Tab) 500 mg PO Q4HP PRN PRN Reason: Pain scale 2-4 (Mild) Last Admin: 01/24/21 17:45 Dose: 500 mg Documented by: Alprazolam (Alprazolam 1 Mg Tablet) 1 mg PO TID PRN PRN Reason: ANXIETY Last Admin: 01/25/21 17:26 Dose: 1 mg Documented by: Ascorbic Acid (Ascorbic Acid 500 Mg Tablet) 1,000 mg PO DAILY [facility] Last Admin: 01/27/21 08:15 Dose: 1,000 mg Documented by: Atorvastatin Calcium (Atorvastatin 10 Mg Tab) 10 mg PO BEDTIME [facility] Last Admin: 01/27/21 21:24 Dose: 10 mg Documented by: Calcitriol (Calcitrol 0.25 Mcg Cap) 0.5 mcg PO DAILY [facility] Last Admin: 01/27/21 08:15 Dose: 0.5 mcg Documented by: Cholecalciferol (Vitamin D 5,000 Unit Cap) 5,000 unit PO DAILY [facility] Last Admin: 01/27/21 08:15 Dose: 5,000 unit Documented by: Emollient Gel (Medihoney 44 Ml Topical Tube) 1 appl TOP DAILY [facility] Last Admin: 01/27/21 09:52 Dose: 1 haider Documented by: Enoxaparin Sodium (Enoxaparin 40 Mg/0.4 Ml) 40 mg SQ DAILY [facility] Last Admin: 01/27/21 08:14 Dose: 40 mg Documented by: Enteral Nutritional Formula (Glucerna Shake 237 Ml Can) 237 ml PO BID [facility] Last Admin: 01/27/21 21:24 Dose: 237 ml Documented by: Ferrous Sulfate (Ferrous Sulfate 325 Mg Tab) 325 mg PO BID [facility] Last Admin: 01/27/21 21:24 Dose: 325 mg Documented by: Gabapentin (Gabapentin 300 Mg Cap) 600 mg PO TID [facility] Last Admin: 01/27/21 21:24 Dose: 600 mg Documented by: Hydromorphone HCl (Hydromorphone Hcl 0.5 Mg/0.5 Ml Inj) 0.5 mg IV Q4H PRN PRN Reason: Pain scale 5-7 (Moderate) Last Admin: 01/27/21 14:11 Dose: 0.5 mg Documented by: Ciprofloxacin/Dextrose (Cipro 200 Mg/100 Ml Ivpb (Premix)) 200 mg in 100 mls @ 100 mls/hr IV Q12HR [facility]; Protocol Last Admin: 01/27/21 21:23 Dose: 100 mls Documented by: Vancomycin HCl 1.25 gm/ Sodium (Chloride) 250 mls @ 150 mls/hr IVPB Q36H [facility] Last Admin: 01/26/21 18:00 Dose: Not Given Documented by: Sodium Chloride (Sodium Chloride 0.45%) 1,000 mls @ 100 mls/hr IV .Q10H [facility] Last Admin: 01/27/21 21:25 Dose: 1,000 mls Documented by: Insulin Human Regular (Insulin -Regular Human 50 Unit/0.5 Ml Ml) 0 unit SQ ACHS [facility]; Protocol Last Admin: 01/27/21 21:25 Dose: 2 unit Documented by: L-Arginine/L-Glutamine/HMB (Antolin Packet) 1 pkt PO BID [facility] Last Admin: 01/27/21 21:24 Dose: 1 pkt Documented by: Metoprolol Succinate (Metoprolol Xl 25 Mg Tab) 12.5 mg PO DAILY [facility] Last Admin: 01/27/21 08:19 Dose: Not Given Documented by: Multivitamins/Minerals (Ocuvite (Vit A,C & E/Lutein/Mineral) Tablet) 1 tab PO DAILY [facility] Last Admin: 01/27/21 08:15 Dose: 1 tab Documented by: Nicotine (Nicotine 21 Mg/Pat) 21 mg TD DAILY [facility] Last Admin: 01/27/21 08:14 Dose: 21 mg Documented by: Ondansetron HCl (Ondansetron 4 Mg/2 Ml Vial) 4 mg IV Q6HP PRN PRN Reason: NAUSEA / VOMITING Last Admin: 01/26/21 09:00 Dose: 4 mg Documented by: Oxycodone HCl (Oxycodone *Cr* 20 Mg Tab) 80 mg PO Q12HR [facility] Last Admin: 01/27/21 21:24 Dose: 80 mg Documented by: Sodium Chloride (Flush Normal Saline 10 Ml) 10 ml IV BID [facility] Last Admin: 01/27/21 21:24 Dose: 10 ml Documented by: Trazodone HCl (Trazodone 50 Mg Tablet) 100 mg PO BEDTIME [facility] Last Admin: 01/27/21 21:24 Dose: 100 mg Documented by: Microbiology Results 01/23/21 17:45 Blood - Blood Aerobic Blood Culture - Preliminary No growth in 24 hours. 01/23/21 17:45 Blood - Blood Anaerobic Blood Culture - Preliminary No growth in 24 hours. 01/23/21 17:26 Blood - Blood Aerobic Blood Culture - Preliminary No growth in 24 hours. 01/23/21 17:26 Blood - Blood Anaerobic Blood Culture - Preliminary No growth in 24 hours. Assessment/ Plan: Nephrology No acute cardiac or pulmonary complaints. No CP or SOB. Weakness and fatigue. No acute events overnight. Vitals, medications, blood work and imaging reviewed in the chart. General: In no apparent distress, Cooperative HEENT: Atraumatic Neck: Supple Respiratory: Clear to auscultation bilaterally Cardiovascular: No edema, Regular rate/rhythm Gastrointestinal: Soft and benign, Non-distended Musculoskeletal: No clubbing, No contractures Integumentary: No cyanosis, Skin breakdown, Skin lesion Neurological: Normal speech Blood work reviewed in the chart. Imagings Data: EXAM DESCRIPTION: RADTib Fib Left01/23/2021 8:53 pm CLINICAL HISTORY: Left leg pain FINDINGS: No fracture is seen. Bones are osteoporotic 2 centimeter lucency is present within the mid fibula. This probably represents focal osteoporosis. A true lesion such as chronic osteomyelitis is possible but probably less likely. If the patient has clinical symptoms to suggest this CT would be recommended Conclusions/Impression: A/P: Continue the current POC and Medications other than the changes listed. AM Labs PRN. Recommend daily weight. Please see the orders for complete details. TRINA likely due to hypovolemia CKD III with proteinuria -Continue IVF 1/2NS -No NSAIDs Hypocalcemia -Continue Vitamin D3 HTN with CKD complicated by hypotension -Continue Metoprolol -Give IV Albumin X3 doses DM II with CKD -Continue RISS Moderate malnutrition -Encourage nutrition -Continue Promod Anemia in chronic illness Iron deficiency -Start IV iron -Transfuse PRBC. Chronic LE Ulcers with chronic pain -Continue Cipro and Vancomycin -Wound care as ordered LTAC placement pending.
[2021-01-28 04:10] VITALS: O2SAT 98
[2021-01-28] MEDS: NACHLORIDE 0.45% 1,000 ML IV SCH ×3 (06:02→16:53)
[2021-01-28 06:23] LABS: Absolute Lymphocytes (CBC) 1.8 K/uL (0.7-4.9); Basophils % 0.7 % (0-1.3); Hematocrit 26.9 % (39.6-49.0); Lymphocytes % 19.8 % (15.3-44.8); MPV 8.5 fL (7.6-11.3); RBC Red Blood Cell Count 3.01 M/uL (4.33-5.43)
[2021-01-28 06:32] LABS: Potassium 4.5 mmol/L (3.5-5.1)
[2021-01-28] MEDS: VANCOMYCIN 1.25 GM in NA CHLORIDE 0.9% 250 ML IVPB SCH (06:53)
[2021-01-28] MEDS: INSULIN -REGULAR HUMAN 50 UNIT/0.5 ML ML SQ SCH ×3 (07:30→16:56)
[2021-01-28] MEDS ORDERED: SOD FERRIC GLUC COMPLX/SUCROSE 250 MG in NA CHLORIDE 0.9% 100 ML IV SCH (09:00)
[2021-01-28] MEDS: JUVEN PACKET PO SCH (09:00)
[2021-01-28] MEDS: GLUCERNA SHAKE 237 ML CAN PO SCH (09:00)
[2021-01-28] MEDS: MEDIHONEY 44 ML TOPICAL TUBE TOP SCH (09:00)
[2021-01-28 09:03] LABS: Blood Morphology Comment NOT SEEN (NOT SEEN); Platelet Estimate ADEQ; White Blood Cell Scan OK (OK)
[2021-01-28] MEDS: ENOXAPARIN 40 MG/0.4 ML SQ SCH (09:34)
[2021-01-28] MEDS: NICOTINE 21 MG/PAT TD SCH (09:35)
[2021-01-28] MEDS: OXYCODONE *CR* 20 MG TAB PO SCH ×2 (09:35→16:55)
[2021-01-28] MEDS: FERROUS SULFATE 325 MG TAB PO SCH (09:35)
[2021-01-28] MEDS: ASCORBIC ACID 500 MG TABLET PO SCH (09:35)
[2021-01-28] MEDS: CALCITROL 0.25 MCG CAP PO SCH (09:35)
[2021-01-28] MEDS: METOPROLOL XL 25 MG TAB PO SCH (09:36)
[2021-01-28] MEDS: VITAMIN D 5,000 UNIT CAP PO SCH (09:36)
[2021-01-28] MEDS: GABAPENTIN 300 MG CAP PO SCH ×2 (09:36→13:39)
[2021-01-28] MEDS: OCUVITE (VIT A,C & E/LUTEIN/MINERAL) TABLET PO SCH (09:36)
--- NOTE | 2021-01-28 09:41 | P.PN ---
Subjective Date of Service: 01/28/21 Primary Care Provider: Dr. Merrill Chief Complaint: Lower extremity wounds Subjective: Doing well Physical Examination - Vital Signs Temperature: 97.2 F Blood Pressure: 105/53 Pulse: 67 Respirations: 16 Pulse Ox (%): 99 - Physical Exam Other Physical/Emotional Findings: left lateral lower extremity skin ulcer: Wound starts at lateral malleolus and extends up the patient's chavez. Wound is unstageable with slough tissue present, tendon exposed. Right lateral lower extremity ulcer: majority black eschar tissue with slough tisue present. Bilateral heel DTI: Non blanchable purple/black discoloration. Right lateral foot DTI x3. Left lateral foot DTI. Assessment & Plan Discharge Plan: LTAC Plan to discharge in: 24 Hours Physician Review Additional Text: Physical exam: Patient alert, cooperative. No significant distress. Heart: Regular rate rhythm Lungs: Clear to auscultation Abdomen: Soft nontender nondistended Extremities: Bandages to the lower extremities bilateral. Pain seems to be well controlled. Impression: Chronic infected open ulcers/wounds to left lateral lower leg, left foot, left heel, right lateral lower leg, right foot, right heel, sacrum complicated by severe diabetic PVD, tobacco abuse with medical noncompliance status post excisional subcutaneous debridement of multiple areas Diabetes mellitus type 2 Anemia of chronic disease with iron deficiency Acute on chronic renal disease stage III with dehydration History of CAD History of COPD Chronic pain Moderate protein malnutrition Plan: Chronic infected open ulcers/wounds to left lateral lower leg, left foot, left heel, right lateral lower leg, right foot, right heel, sacrum complicated by severe diabetic PVD, tobacco abuse with medical noncompliance status post excisional subcutaneous debridement of multiple areas: Patient remains stable. Continue current treatment plan of IV antibiotic therapy and wound care. Patient will require continued IV antibiotic therapy, wound care and hyperbaric this. Spoke with long-term acute care facility yesterday. They will confirm today with family and administration on the possibility of transfer to LTAC today. Patient received transfusion. Hemoglobin stable. Continue with plan of care. Case discussed at length with family. Anticipate transfer to LTAC today once approved. Diabetes mellitus type 2: Continue Accu-Cheks and sliding scale. Will monitor and adjust appropriately. Anemia of chronic disease with iron deficiency: Patient received transfusion. Hemoglobin remained stable. Acute on chronic renal disease with dehydration: Renal function appears to baseline. Consider holding IV fluids if taking good oral intake. Continue with Nephrology recommendations. History of CAD: Continue home medication. History of COPD: Stable this time. Continue home meds. Chronic pain: Patient with pain pump. This no longer works. Continue with his regular regimen of pain medication. Will monitor and adjust appropriately. Moderate protein malnutrition: Will have dietary address daily needs. Time Spent Managing Pts Care (In Minutes): 55
[2021-01-28] MEDS: HYDROMORPHONE HCL 0.5 MG/0.5 ML INJ IV PRN (12:48)
[2021-01-28] MEDS: Ciprofloxacin 200mg IV 200 MG/100 ML IV.SOLN. IV SCH (12:48)
--- NOTE | 2021-01-28 14:55 | P.DS ---
Admission Date: 01/23/21 Discharge Date: 01/28/21 Primary Care Provider: Dr. Merrill Disposition: ALF ACUTE CARE FACILITY Discharge Condition: GOOD Reason for Admission: Lower extremity wounds Consultations: Surgery-Dr. Ortiz Nephrology-Dr. Nails Infectious Disease-Dr. Evangelista Procedures: COVID: Negative Surgery: Date of Procedure: 01/25/2021 Surgeon: Reji Ortiz MD Preoperative Diagnosis: Infected necrotic wounds, bilateral lower extremities. Postoperative Diagnosis: Infected necrotic wounds, bilateral lower extremities. Procedure: Excisional subcutaneous debridement of 5 areas. 1. Left leg 20 x 5 cm. 2. Left heel 8 x 7 cm. 3. Right foot 5 x 3 cm. 4. Right heel 9 x 6 cm. 5. Right leg 23 x 5 cm. Estimated Blood Loss: Less than 30 mL. Findings: Necrotic tissue. Anesthesia: General. Medical Problem List: Chronic infected nontraumatic open pressure ulcers/wounds to left lateral lower leg, left foot, left heel, right lateral lower leg, right foot, right heel, sacrum complicated by severe diabetic PVD, tobacco abuse with medical noncompliance status post excisional subcutaneous debridement of multiple areas Diabetes mellitus type 2 Anemia of chronic disease with iron deficiency Acute on chronic renal disease stage III with dehydration History of CAD History of COPD Chronic pain Moderate protein malnutrition Brief History of Present Illness: 81-year-old male with history of diabetes mellitus type 2, hypertension, CAD, PVD, GERD, chronic pain and open wounds to the lower extremities presents emergency department for worsening of his wounds to the lower extremities. Patient was recently seen here and transferred to a long- term acute care facility for continued wound care, IV antibiotics, physical therapy, hyperbaric treatments. Patient reports that he did not like it there so he signed himself out against medical advice. There was apparently some communication issues with patient and staff. Patient with extensive wounds to bilateral lower extremities. Patient was seen by infectious disease and general surgery during his admission here, Infectious Disease recommended ciprofloxacin 200 mg q.12 hr with Benadryl as patient is allergic in addition to renally dose adjusted vancomycin. Recommendation for L tach with hyperbaric oxygen in addition to IV antibiotics for 2-4 weeks. Patient had debridement on 01/16/2021 to the right foot, left foot, left leg. Patient also noted to have acute kidney injury in the emergency department a creatinine 1.86 GFR 35 pro calcitonin 0.1 white blood cell count 8.7, hemoglobin 8.7 hematocrit 27.1. Patient does not appear septic at this time, ED provider wishes to admit for further evaluation and management. Case was discussed with General Surgery while patient was in the emergency department. Hospital Course: Patient presented with chronic infected non traumatic open wounds to left lateral lower leg, left foot, left heel, right lateral lower leg, right foot, right heel, sacrum complicated by severe diabetic PVD, tobacco abuse. Patient was recently at at [facility]. He only stayed there for a day after some communication issues with the nursing staff. The patient presented to our facility due to worsening wounds. Patient was admitted for treatment. Patient was seen and evaluated by surgery. Surgical intervention was performed. This included excisional subcutaneous debridement of multiple areas. During the course of his stay the patient received IV fluid with transfusion. Nephrology and Infectious Disease were consulted. He was recommended that the patient return back to the [facility] acute care facility or skilled placement. Due to the severity of his wounds, patient was denied skilled placement due to complexity. Patient wished to go back to the long-term [facility] care facility. With the help of his family, patient and administration at the [facility], it was determined that the patient can return to continue aggressive wound care, hyperbarics and continued IV antibiotic therapy. At discharge patient will be transferred to the [facility] facility to continue treatment. Further adjustment in medication can be done by the physicians there. Patient will likely require scan grafts in the future. Patient with other medical problems including diabetes mellitus type 2, anemia of chronic disease with iron deficiency, acute on chronic renal disease stage III, CAD, COPD, chronic pain and moderate protein malnutrition. As mentioned above patient received transfusion. Hemoglobin stable at this time. Renal function back to baseline. This improved with hydration. At discharge patient will continue with his current medications. Further adjustment can be done at the long-term acute care facility. At discharge medications include IV Cipro, IV vancomycin, IV iron, Lipitor 10 mg daily, metoprolol 12.5 mg daily, gabapentin 600 mg 3 times a day, oxycodone 80 mg 1 pill twice daily and trazodone 100 mg daily. Patient also takes multiple multi vitamins. Vital Signs/Physical Exam: Temp Pulse Resp BP Pulse Ox 97.6 F 68 16 108/54 L 97 03/20/21 12:00 01/28/21 12:00 01/28/21 12:48 01/28/21 12:00 01/28/21 12:48 General: Alert, In no apparent distress, Oriented x3, Cooperative HEENT: Atraumatic Neck: Supple Respiratory: Clear to auscultation bilaterally, Normal air movement Cardiovascular: Normal pulses, Regular rate/rhythm Gastrointestinal: Normal bowel sounds, Soft and benign, Non-distended, No tenderness, No masses, No rebound, No guarding Integumentary: Other (Bandages to the lower extremity) Neurological: Normal speech, Normal strength at 5/5 x4 extr, Normal tone, Normal affect Other Physical/Emotional Findings: left lateral lower extremity skin ulcer: Wound starts at lateral malleolus and extends up the patient's chavez. Wound is unstageable with slough tissue present, tendon exposed. Right lateral lower extremity ulcer: majority black eschar tissue with slough tisue present. Bilateral heel DTI: Non blanchable purple/black discoloration. Right lateral foot DTI x3. Left lateral foot DTI. Laboratory Data at Discharge: WBC 9.30 K/uL (4.3-10.9) D 01/28/21 05:34 Hgb 8.8 g/dL (13.6-17.9) L 01/28/21 05:34 Hct 26.9 % (39.6-49.0) L 01/28/21 05:34 Plt Count 221 K/uL (152-406) 01/28/21 05:34 PT 16.0 SECONDS (9.5-12.5) H 01/23/21 17:26 INR 1.39 01/23/21 17:26 Sodium 141 mmol/L (136-145) 01/28/21 05:34 Potassium 4.5 mmol/L (3.5-5.1) 01/28/21 05:34 BUN 33 mg/dL (7-18) H 01/28/21 05:34 Creatinine 1.48 mg/dL (0.55-1.3) H 01/28/21 05:34 Glucose 133 mg/dL (74-106) H 01/28/21 05:34 Uric Acid 3.6 mg/dL (3.5-7.2) 01/25/21 03:32 Phosphorus 3.9 mg/dL (2.5-4.9) 01/25/21 03:32 Magnesium 2.0 mg/dL (1.8-2.4) 01/27/21 06:06 Total Bilirubin 0.4 mg/dL (0.2-1.0) 01/27/21 06:06 AST 12 U/L (15-37) L 01/27/21 06:06 ALT 9 U/L (12-78) L 01/27/21 06:06 Alkaline Phosphatase ND 01/27/21 06:06 Home Medications: Alprazolam [Xanax] 1 mg PO TID PRN 01/24/21 Apixaban [Eliquis *] 2.5 mg PO BID 01/24/21 Ascorbic Acid [Vitamin C] 1,000 mg PO DAILY 01/24/21 Furosemide [Lasix] 80 mg PO PRN PRN 01/24/21 Gabapentin 600 mg PO TID 01/24/21 Metoprolol Succinate 12.5 mg PO DAILY 01/24/21 Oxycodone Myristate [Xtampza ER] 36 mg PO BID 01/24/21 Simvastatin 20 mg PO DAILY 01/24/21 Trazodone HCl 100 mg PO BEDTIME 01/24/21 Vit A/Vit C/Vit E/Zinc/Copper [Preservision Areds Softgel] 1 cap PO DAILY 01/24/21 Physician Discharge Instructions: Okay to discharge to long-term acute care facility. Diet: ADA Activity: Fall precautions Followup: Barrington Merrill MD [Primary Care Provider] - Time spent managing pt's care (in minutes): 55
--- NOTE | 2021-01-28 15:13 | PN ---
Date of Progress Note: 01/28/2021 Subjective: The patient is seen and examined at bedside. He is complaining of pain in his legs and ankles. Physical Examination: Vital signs: Have been reviewed and stable. at bedside. General: He appears weak and cachectic. HEENT: Atraumatic head. Lungs: Clear to auscultation anteriorly. Extremities: Showed bilateral lower extremities in dressing. Laboratory Data: Has been reviewed. Creatinine is improving to 1.48, which is overall stable. Othe r electrolytes are also stable. CBC is showing hemoglobin improving to 8.8, hematocrit of 26.9, and WBC count of 9.3. Current Medications: Include half-normal saline at 100 cc an hour, Xanax p.r.n., ascorbic acid, ator vastatin, calcitriol, ciprofloxacin, Lovenox, ferrous sulfate 1 time dose of Lasix was given yesterda y, OxyContin 80 mg every 12 hours, , trazodone at bedtime, vancomycin. Impression: 1.Chronic renal insufficiency, currently with overall stable renal function. 2.Bilateral lower extremity cellulitis with wounds. The patient is needing long-term antibiotic the rapy and the wound care. He has chronic infected open ulcers on the left lower leg, left foot, left heel, right lower leg, right foot, right heel, sacrum, and a severe diabetic peripheral vascular dise ase. The patient's is stating that he is amenable to long-term care facility again. 3.Anemia secondary to chronic disease, currently stable. 4.Peripheral vascular disease. 5.Chronic obstructive pulmonary disease, currently stable. 6.Chronic pain. Continue current med management. Plan: Overall, the patient is clinically stable. However, his prognosis remains poor. Continue gen tle IV hydration and monitor labs closely. VV/MODL Voice ID: [id number] Report ID: [id number]
[2021-01-28 16:11] VITALS: BP 109/51; TEMP 97.9
== END 2021-01-28 18:04 | DRG 264 ==
LOC: ER 12:47 → ERHOLD 20:52 → 4TH 01-24 00:34
PROVIDERS: ADMIT Family Medicine; ATTEND Family Medicine
PROC: 0JBN0ZZ Excision of Right Lower Leg Subcutaneous Tissue and Fascia, Open Approach (ICD-10-PCS; 2021-01-25)
PROC: 0JBP0ZZ Excision of Left Lower Leg Subcutaneous Tissue and Fascia, Open Approach (ICD-10-PCS; 2021-01-25)
PROC: 0JBQ0ZZ Excision of Right Foot Subcutaneous Tissue and Fascia, Open Approach (ICD-10-PCS; 2021-01-25)
PROC: 30233N1 Transfusion of Nonautologous Red Blood Cells into Peripheral Vein, Percutaneous Approach (ICD-10-PCS; 2021-01-25)
PROC: 0JBR0ZZ Excision of Left Foot Subcutaneous Tissue and Fascia, Open Approach (ICD-10-PCS; principal; 2021-01-25 08:15)
DX: E11.52 Type 2 diabetes mellitus with diabetic peripheral angiopathy with gangrene (principal); L89.153 Pressure ulcer of sacral region, stage 3; I96 Gangrene, not elsewhere classified; N17.9 Acute kidney failure, unspecified; E44.0 Moderate protein-calorie malnutrition; L97.829 Non-pressure chronic ulcer of other part of left lower leg with unspecified severity; L03.116 Cellulitis of left lower limb; L03.115 Cellulitis of right lower limb; K21.9 Gastro-esophageal reflux disease without esophagitis; I25.10 Atherosclerotic heart disease of native coronary artery without angina pectoris; E78.5 Hyperlipidemia, unspecified; F17.200 Nicotine dependence, unspecified, uncomplicated; E11.621 Type 2 diabetes mellitus with foot ulcer; L97.519 Non-pressure chronic ulcer of other part of right foot with unspecified severity; D63.8 Anemia in other chronic diseases classified elsewhere; N28.9 Disorder of kidney and ureter, unspecified; G89.29 Other chronic pain; I12.9 Hypertensive chronic kidney disease with stage 1 through stage 4 chronic kidney disease, or unspecified chronic kidney disease; N18.30 Chronic kidney disease, stage 3 unspecified; E11.22 Type 2 diabetes mellitus with diabetic chronic kidney disease; L89.626 Pressure-induced deep tissue damage of left heel; E83.51 Hypocalcemia; L89.616 Pressure-induced deep tissue damage of right heel; L89.896 Pressure-induced deep tissue damage of other site; D50.9 Iron deficiency anemia, unspecified; E86.0 Dehydration; J44.9 Chronic obstructive pulmonary disease, unspecified; I25.2 Old myocardial infarction; Z88.5 Allergy status to narcotic agent; Z95.5 Presence of coronary angioplasty implant and graft; Z79.899 Other long term (current) drug therapy; Z79.4 Long term (current) use of insulin; Z96.651 Presence of right artificial knee joint; Z68.25 Body mass index [BMI] 25.0-25.9, adult; Z91.19 Patient's noncompliance with other medical treatment and regimen; Z90.49 Acquired absence of other specified parts of digestive tract; Z89.022 Acquired absence of left finger(s); Z88.1 Allergy status to other antibiotic agents; Z79.01 Long term (current) use of anticoagulants; Z20.822 Contact with and (suspected) exposure to COVID-19
CPT/HCPCS: 36415; 36430; 80048; 80053; 80076; 80202; 81003; 81015; 82728; 82947; 83036; 83540; 83605; 83735; 84100; 84145; 84466; 84550; 85014; 85018; 85025; 85610; 86850; 86900; 86901; 87040; 96361; 96365; 96366; 96375; 97110; 97161; 97530; 99285; J0744; J1170; J1200; J1650; J1940; J2175; J2405; J2704; J2916; J3010; J3370; J3475; J3590; J7030; J7040; J7050; P9016; P9047; U0003

== ENCOUNTER 2021-05-01 07:12 | Inpatient (IN) | payer OTHER, BC ==
--- OUTSIDE RECORDS SUMMARY | 2021-05-01 07:22 | XMS REPORT | Continuity of Care Document ---
:1940 Author Organization [facility] t Address [address] [place] [address] [place] [address] Care Team Providers Name Role Phone Garfield GAGNON Primary Care Physician Garfield GAGNON Attending Clinician Doctor Unassigned, Name Attending Clinician Unavailable Brannon GAGNON Attending Clinician Zee Davis MD Attending Clinician Ernesto Moreno MD Attending Clinician Jamaica Chapman MD Attending Clinician Unavailable Ronald Be MD Attending Clinician Giovanni GAGNON Attending Clinician BRANNON Attending Clinician Unavailable Chuckie Sena Attending Clinician Simeon Parisi Attending Clinician Abel Cunningham Attending Clinician ZEE DAVIS Admitting Clinician Unavailable Simeon Parisi Admitting Clinician Abel Cunningham Admitting Clinician Payers Payer Name Policy Type Policy Effective Date Expiration Source Number Date MEDICAREMEDICARE PART [id number] 1998 Un iversity of A & 00:00:00 [facility] [id number] 1997- [facility] [phone][address] [address]Medicare BCBS OF [facility] [id number] 2017 Jackyalessandra maci of [id number] 00:00:00 Jadiel as Medical 5 [id number] Jaden [facility] [phone] [address], [place] [address]Medicare Supplement MEDICAREMEDICARE A [id number] [address] [facility] [id number] 1997- 00:00:00 Med [facility] PresentMedicare BLUE CROSS/BLUE [id number] [address] [facility] [facility] - SHIELDBCBS PPO POS 0 00:00:00 Medica l Center EPO [id number], [place] [address]RSU Advance Directives Directive Decision Effective Termination Comments Source Date Date Healthcare Agents on N/A [facility] FileNameRelationipHealthForest Health Medical Center Agent Medical RelationshipCommunicationSt. 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 U cyndie protein-ca protein-ca 2-07 it y of karen jones 00:00: [place] malnutriti malnutriti 00 Me dical on on Branch PAD PAD Disease Active Overview: Summer s (periphera (periphera 2-03 Added it y of l artery l artery 00:00: automatic Jadiel as disease) disease) 00 ally from Med ica request Branch for surgery [id number] Osteomyeli Osteomyeli Disease Active U leonardoers tis tis 1-16 ity of 00:00: [place] 00 Medical Branch Closed Closed Disease Active 2019-[address] [facility] intertroch intertroch 2-21 Annalee kes - anteric anteric 00:00: Medical fracture fracture 00 Center of left of left hip hip 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 00:00: Medical involving involving 00 [facility] [place] coronary coronary artery of artery of [place] heart heart without without angina angina pectoris [...] - pain pain 00:00: Medical 00 Center Acute on Acute on Disease Active 2019-11 Unive rs chronic chronic 0-26 ity of diastolic diastolic 00:00[place] congestive congestive 00 Me dical heart heart Branch failure failure TIA TIA Disease Active 2019-11 Univers (transient (transient 0-26 it y of ischemic ischemic 00:00: [place] attack) attack) 00 Medical Branch Nonrheumat Nonrheumat Disease Active 2019-11 U nivers ic aortic ic aortic 0-26 ity of valve valve 00:00: [place] stenosis stenosis 00 Medica l Branch HYPOTENSIO Diagnosis Active 2019-07-23 Memoria N 8-24 22:09:00 l 00:00: Jeremias HYPOTENSIO 00 N Active 07/04/2019 [place] DEHYDRATIO Diagnosis Active 2019-07-04 Memoria N, RENAL 8- 17:34:00 l FAILURE, 00:00: Jeremias HYPOTENSIO DEHYDRATIO 00 N N, RENAL FAILURE, HYPOTENSIO N Active 07/04/2019 [place] PVD Diagnosis Active 2019-07-06 Mem oria 06-22 21:56:00 l PVD 00:00: [place] 00 Active 06/22/2019 [place] UNK Diagnosis Active 2019-06-23 Mem oria 06-22 19:27:00 l UNK 00:00: [place] 00 Active 06/22/2019 [facility] CARCAMO CARCAMO Disease Active Univers (dyspnea (dyspnea 6-16 ity of on on 00:00: [place] exertion) exertion) 00 Medi brandon Branch Chronic Chronic Disease Active Univers atrial atrial 6-16 ity of fibrillati fibrillati 00:[place] 00 Medical [place] Pneumonia Pneumonia Disease Active Uni vers 6-13 ity of 00:00: [place] 00 Medical Branch Intractabl Intractabl Disease Active U nivers e vomiting e vomiting 6-19 it y of 00:00: [place] 00 Medical Branch Elevated Elevated Disease Active 2016-11 Unive rs troponin troponin 2-10 ity of 00:00: [place] 00 Medical Branch Coronary Coronary Disease Active 2016-11 Unive rs artery artery 2-10 ity of disease disease 00:00: [place] involving involving 00 [facility] [place] Branch coronary coronary artery of artery of [place] heart heart without without angina angina pectoris pectoris Vomiting Vomiting Disease Active 2016-11 Unive rs 2-10 ity of 00:00: [place] 00 Medical Branch 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 2-10 ity of kidney kidney 00:00: [place] disease disease 00 Medical Branch Obesity Obesity Disease Active 2015-11 Univers (BMI (BMI 2-27 ity of 30-39.9) 30-39.9) 00:00: [place] 00 Medical Branch JUAREZ JUAREZ Disease Active 2014-11 Univers (generaliz (generaliz 1-18 it y of ed anxiety ed anxiety 00[place]00: [place] disorder[place] disorder) 00 [facility] Insomnia Insomnia Disease Active 2014-11 Unive rs 1-18 ity of 00:00: [place] Medical [facility] Sleep Sleep Disease Active 2014-11 Univers apnea apnea 1-18 ity of 00:00: [place] Medical [facility] Hyperchole Hyperchole Disease Active 2014-11 U nivers sterolemia sterolemia 1-18 it y of 00:00: [place] 00 Medical Branch Reflux Reflux Disease Active 2014-11 Univers esophagiti esophagiti 1-18 it y of s s 00:00: [place] 00 Medical Branch Type 2 Type 2 Disease Active Univers diabetes diabetes 4-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 mellitus 00:00: [place] with with 00 Medical neurologic neurologic Br anch complicati complicati on, on, without without long-term long-term current current use of use of insulin insulin Diabetes Diabetes Disease Active 2008-11 Unive rs mellitus mellitus 2-11 ity of 00:00: [place] 00 Medical Branch Essential Essential Disease Active 2008-11 Uni vers hypertensi hypertensi 2-11 it y of on, benign on, benign 00:00: [place] Osteoarthr Osteoarthr Disease Active 2008-11 U nivers itis of itis of 2-11 ity of multiple multiple 00:00: [place] joints joints 00 Medical Branch HLD HLD Disease Active 2008-11 Overview: Univer s (hyperlipi (hyperlipi 2-11 ICD10 it y of demia) demia) 00:00: Diagnosis [place] 00 Term Medical Livestock Counter Branch Utility CARMEN CARMEN Disease Active 2008-11 Univers (obstructi (obstructi 2-11 it y of ve sleep ve sleep 00:00: [place] apnea) apnea) 00 Medical Branch Dehydratio Problem 2019-07-08 M emoria n 22:19:55 l Jeremias Dehydratio n 07/08/2019 [facility] Chronic Problem Resolve 2020-07-21 Mem oria pain d 21:21:18 l (finding) Chronic Herm jonas pain (finding) Resolved Problem 07/21/2020 legs and feet, back [facility] Cervical Problem Active 2020-07-21 Mem oria spondylosi 21:21:18 l s Cervical Telly n (disorder) spondylosi s (disorder) Active Problem 07/21/2020 [facility] Cervico-oc Problem Active 2020-07-21 M emoria cipital 21:21:18 l neuralgia Jeremias (finding) Cervico-oc cipital neuralgia (finding) Active Problem 07/21/2020 [facility] Chronic Problem Active 2020-07-21 Gabe carolynn back pain 21:21:18 l (disorder) Chronic Her bruno back pain (disorder) Active Problem 07/21/2020 [facility] Confusiona Problem Active 2020-07-21 M emoria l state 21:21:18 l (disorder) Telly n Confusiona l state (disorder) Active Problem 07/21/2020 [facility] Coronary Problem Active 2020-07-21 Mem oria arterioscl 21:21:18 l erosis Coronary Telly n (disorder) arterioscl erosis (disorder) Active Problem 07/21/2020 [facility] Essential Problem Active 2020-07-21 Me moria hypertensi 21:21:18 l on [place] (disorder) Essential hypertensi on (disorder) Active Problem 07/21/2020 [facility] Gastroesop Problem Active 2020-07-21 M emoria hageal 21:21:18 l reflux [place] disease Gastroesop (disorder) hageal reflux disease (disorder) Active Problem 07/21/2020 [facility] Headache Problem Active 2020-07-21 Mem oria (finding) 21:21:18 l Headache Telly n (finding) Active Problem 07/21/2020 [facility] Osteoarthr Problem Active 2020-07-21 M emoria itis 21:21:18 l (disorder) Telly n Osteoarthr itis (disorder) Active Problem 07/21/2020 [facility] Peripheral Problem Active 2020-07-21 M emoria nerve 21:21:18 l disease [place] (disorder) Peripheral nerve disease (disorder) Active Problem 07/21/2020 [facility] Tremor Problem Active 2020-07-21 Memor ia (finding) 21:21:18 l Tremor Jeremias (finding) Active Problem 07/21/2020 [facility] HYPOTENSIO Diagnosis Active 2019-07-23 Memoria N, 22:09:00 l UNSPECIFIE Telly n D HYPOTENSIO N, UNSPECIFIE D Active [facility] DEHYDRATIO Diagnosis Active 2019-07-04 Memoria N 17:34:00 l Jeremias DEHYDRATIO N Active [facility] PERIPHERAL Diagnosis Active 2019-07-06 Memoria VASCULAR 21:56:00 l DISEASE, Jeremias UNSPECIFIE PERIPHERAL D VASCULAR DISEASE, UNSPECIFIE D Active [facility] Nerve Problem Resolve 1994-2020-07-21 2020-07-21 Memoria injury d 06-22 21:21:18 21:21:18 l (disorder) Nerve 00:00: Pilar nn injury 00 (disorder) Resolved 06/22/1995 Problem 07/21/2020 [facility] Hypertensi Problem Resolve 1987-0 2020-07-21 2020-07-21 Memoria ve d 06-22 21:21:18 21:21:18 l disorder, 00:00: Jeremias systemic Hypertensi 00 arterial ve (disorder) disorder, systemic arterial (disorder) Resolved 06/22/1988 Problem 07/21/2020 [facility] Allergies, Adverse Reactions, Alerts Allergy Allergy Status Severity Reaction(s) Onset Inactive Treating Comm ents Source Name Type Date Date Clinician Hydromor Drug Active Mild 2019-[address] [facility] phone Allergy - received [facility] - 00[facility] dilaudid Medical 00 on the Center floor and in PACU. Pt says in the past it "makes him crazy" Iodine Drug Active 2019-[address] [facility] Allergy 2- [facility] - 00:[facility]: Medical 00 Center Morphine Drug Active 2019-[address] [facility] Allergy 01-01 [facility] - 00:[facility]: Medical 00 [place] Morphine Propensi Active Nausea 2008-11 Univer s ty to and/or 2-11 ity of adverse Vomiting 00:00: [place] reaction 00 Medical s to Branch drug morphine morphine Active Memori a l [place] Dilaudid Dilaudid Active Memori a l [place] iodine iodine Active Memoria l Jeremias Family History Family Member Diagnosis Comments Start Date Stop Date Source Natural father Heart disease [facility] Natural mother Heart disease [facility] Social History Social Habit Start Date Stop Date Quantity Comments Source Exposure to Not sure University of SARS-CoV-2 [facility] (event) Branch History of Cigarette Smoker Universi ty of tobacco use [facility] Sex Assigned At [facility] Tobacco use and 2020-12-20 2020-12-20 Never used Universit y of exposure 00:00:00 00:00:00 [facility] Alcohol intake 2020-11-02 2020-11-02 Ex-drinker [facility] es - 00:00:00 00:00:00 (finding) [facility] Tobacco Comment 2020-09-19 2020-09-19 stopped 3 weeks Univ ersity of 00:00:00 00:00:00 ago [place] [facility] History SDOH 2020-09-05 2020-09-05 17 University o f Education 00:00:00 00:00:00 [place] [facility] History SDOH 2020-09-05 2020-09-05 5 University o f Financial 00:00:00 00:00:00 [place] [facility] History SDOH Food 2020-09-05 2020-09-05 1 Univers ity of Worry 00:00:00 00:00:00 [place] [facility] History SDOH Food 2020-09-05 2020-09-05 1 Univers ity of Scarcity 00:00:00 00:00:00 [facility] Branch History SDOH 2020-09-05 2020-09-05 2 University o f Transport Med 00:00:00 00:00:00 [place] Medic al Branch History SDOH 2020-09-05 2020-09-05 2 [place] o f Transport Non-Med 00:00:00 00:00:00 [place] M edical Branch Social History 2020-07-19 2020-07-19 [facility] Arsalan pang 15:00:00 15:00:00 Smoking Status Start Date Stop Date Source Former smoker 2020-12-20 00:00:00 2020-12-20 00:00:00 Universi ty of [facility] Current every day 2020-11-02 00:00:[address] [facility] [facility] - [facility] smoker [facility] Medications Ordered Filled Start Stop Current Ordering Indication Dosage Frequency Signature Comments Components Source Medication Medication Date Date Medication? Clinician (SIG) Name Name apixaban Yes 2.5mg Take 2.5 Univ ers (ELIQUIS) 2-22 mg by ity of 2.5 mg 15:58: mouth 2 [place] tablet 11 (two) Medical times Branch daily. gabapentin Yes Primary 600mg Take 1 U nivers 600 mg 2-22 osteoarthri tablet by i ty of tablet 00:00: tis mouth 3 [place] 00 involving (three) Medical multiple times Branch joints daily. metoprolol Yes Wound of 12.5mg Take 0.5 Univers succinate 2-22 left lower tablets by ity of XL 25 mg 24 00:00: extremity, mouth [place] hr tablet 00 initial daily. Medic al encounter Branch simvastatin Yes Hypercholes 20mg Take 1 Univers 20 mg 2-22 terolemia tablet by ity of tablet 00:00: mouth [place] 00 daily. Medical Branch calamine-zi Yes Wound of Apply to Univers nc oxide 1-19 left lower area(s) as ity of lotion 00:00: extremity, needed for [place] 00 initial Skin Medical encounter irritation Bran ch . ALPRAZOLAM Yes Anxiety TAKE 1 Un neo 1 mg tablet 1-13 TABLET BY ity of 00:00: MOUTH [place] 00 THREE Medical TIMES Branch DAILY NEEDED FOR ANXIETY ergocalcife 2019-11- No [id number] Q7D Take [address] rol 12-06 capsule [facility] - (ERGOCALCIF 00:00: 23:59 (50,000 Me dical YUSEF) 1,250 00 :00 Units Center mcg (50,000 total) by unit) mouth once capsule a week for 28 days. ergocalcife 2019-11 2020- No [id number] Q7D Take [address] rol [...] - protamin-li 14:35: subcutaneo Medical spro 21 [facility] Center (HumaLOG daily. 75-25) 100 unit/mL (75-25) [...] 00:00 daily. Medical 21 :00 Center calcium 2019-11 No 500mg Q.5D Take [address] [facility] carbonate 2- 12-27 tablet [facility] - (TUMS) 500 00:00: 23:59 (500 mg Med ical mg chewable 00 :00 total) by [address] tablet mouth 2 (two) times daily. polyethylen 2019-11 No 17g QD Take [address] [facility] e glycol 2- 12-27 by mouth [facility] - (GLYCOLAX) 00:00: 23:59 daily. Medi brandon 17 gram 00 :00 Center packet apixaban 2019-11 No 2.5mg Q.5D Take 1 [facility] (ELIQUIS) 2- 12-27 tablet [facility] - 2.5 mg Tab 00:00: 23:59 (2.5 mg Med ical tablet 00 :00 total) by Center mouth 2 (two) times daily. polyethylen 2019-11 No 17g QD Take [address] [facility] e glycol 2- 12-27 by mouth [facility] - (GLYCOLAX) 00:00: 00:00 daily. Medi brandon 17 gram 00 :00 Center packet calcium 2019-11- No 500mg Q.5D Take [address] [facility] carbonate 2- 12-27 tablet [facility] - (TUMS) 500 00:00: 00:00 (500 mg Med ical mg chewable 00 :00 total) by [address] tablet mouth 2 (two) times daily. apixaban 2020-1 2020- No 2.5mg Q.5D Take 1 [facility] (ELIQUIS) 2-26 12-27 tablet [facility] - 2.5 mg Tab 00:00: 00:00 (2.5 mg Med ical tablet 00 :00 total) by Center mouth 2 (two) times daily. butalbital- 2019-11 Yes Univer s acetaminoph 2-15 ity of en-caff 00:00: [place] 50-325-40 00 Medical mg tablet Branch HUMALOG MIX 2019-11 Yes Type 2 INJECT 35 Univers 75-25 1-12 diabetes UNITS IN ity of KWIKPEN 100 00:00: mellitus THE [place] unit/mL 00 with MORNING Medical (75-25) diabetic AND INJECT Br anch injection neuropathy, 25 UNITS without IN THE long-term EVENING current use of insulin mirtazapine 2019- Yes Loss of 7.5mg Take 1 Univers 7.5 mg 1-09 appetite tablet by ity of tablet 00:00: for more mouth at Jadiel as 00 than 2 bedtime. Medical weeks Branch collagenase 2019-11 Yes Ulcer of Apply to Univers 250 0-27 left lower affected ity o f unit/gram 00:00: extremity area(s) [place] ointment 00 with fat daily. Medic al layer Left leg Branch exposed wound mupirocin 2 2019-11 Yes Open wound Apply to Univers % ointment 0-27 of left area(s) 2 i ty of 00:00: knee, leg, (two) [place] 00 and ankle times Medical with daily. Branch complicatio Left leg n, wound subsequent encounter furosemide 2019-11 Yes Ulcer of 40mg Take 1 U nivers 40 mg 0-27 left lower tablet by ity of tablet 00:00: extremity mouth [place] 00 with fat every Medical layer morning Branch exposed and evening. traZODone 2019-11 Yes Insomnia, 100mg Take 1 Univers 100 mg 0-01 unspecified tablet by i ty of tablet 00:00: type mouth at [place] 00 bedtime. Medical Branch ipratropium 2019- Yes COPD 3mL Inhale 3 Un neo -albuteroL 0-01 (chronic mL every 4 ity of 0.5 mg-3 00:00: obstructive (four) [place] mg(2.5 mg 00 pulmonary hours as M edical base)/3 mL disease) needed for Branch nebulizer with acute Wheezing. solution bronchitis albuterol 2019-1 Yes CARCAMO INHALE 2 Univ ers 90 0-01 (dyspnea on PUFFS BY ity of mcg/actuati 00:00: exertion) MOUTH [place] on inhaler 00 EVERY 6 Medica l HOURS Branch NEEDED FOR SHORTNESS OF BREATH fluticasone 2020-0 Yes CARCAMO 1{puff} Inhale 1 Univers propion-isabell 8-10 (dyspnea on Puff every ity of meterol 00:00: exertion) 12 [place] 250-50 00 (twelve) Medical mcg/dose hours. Branch inhalation disk ramelteon 8 2019-0 Yes Insomnia, 8mg Take 1 Univers mg tablet 8-10 unspecified tablet by ity of 00:00: type mouth at [place] 00 bedtime. Medical Branch ondansetron 2019-0 Yes Vomiting, 8mg Take 1 Univers (ZOFRAN 6-15 intractabil tablet by ity of ODT) 8 mg 00:00: ity of mouth [place] disintegrat 00 vomiting every 8 M edical ing tablet not (eight) Branch specified, hours as presence of needed for nausea not Nausea and specified, Vomiting unspecified (N/V). vomiting type METOCLOPRAM 2019-0 Yes 10mg TAKE 1 Univ ers GEOFF HCL 10 6-15 TABLET BY ity of mg tablet 00:00: MOUTH [place] 00 BEFORE Medical MEALS AND Branch AT BEDTIME. DULoxetine 2020-0 Yes 30 mg = 1 Me moria 30 mg oral 5-06 cap, PO, l delayed 15:03: Daily, # Telly n release 00 30 cap, 6 capsule Refill(s), Pharmacy: [facility] DULoxetine 2020-0 2020- No 1{capsu QD Take [address] (CYMBALTA) 5-06 12-22 le} capsule by Annalee kes - 30 MG 00:00: 00:00 mouth Medical capsule 00 :00 daily. [place] blood sugar 2019-0 Yes Type 2 TEST THREE Univers diagnostic 4-21 diabetes TIMES ity of (TRUE 00:00: mellitus DAILY AND Jadiel as METRIX 00 with NEEDED Medical GLUCOSE diabetic Branch TEST STRIP) neuropathy, strip with long-term current use of insulin tiZANidine 2020-0 Yes Primary 4mg Take 1 Un neo 4 mg tablet 2-25 osteoarthri tablet by ity of 00:00: tis mouth [place] 00 involving every 8 Medical multiple (eight) Branch joints hours as needed for Pain (scale 4-6). Acetaminoph 2020-0 Yes 1 cap, PO, Memoria en 300 MG / 2-06 Q4H, 0 l butalbital 22:03: Refill(s) He rmann 50 MG / 00 Caffeine 40 MG Oral Capsule omeprazole 2020-0 Yes 40 mg = 1 Me moria 40 mg oral 2-06 cap, PO, l delayed 22:03: Daily, 0 Telly n release 00 Refill(s) capsule terazosin 2 2020-0 Yes 2 mg = 1 Me moria mg oral 2-06 cap, PO, l capsule 22:03: Bedtime, 0 Herm jonas 00 Refill(s) Ondansetron 2019-0 Yes 8 mg = 1 Me moria 8 MG Oral 2-06 tab, PO, l Tablet 22:03: TID, 0 [place] Refill(s) Metoclopram 2020-0 Yes 10 mg = 1 M emoria geoff 10 MG 2-06 tab, PO, l Oral Tablet 22:03: Daily, 0 He rmann 00 Refill(s) duloxetine 2019-0 Yes 20 mg = 1 Me moria 20 MG 2-06 cap, PO, l Enteric 18:34: Daily, # Telly n Coated 00 30 cap, 3 Capsule Refill(s), [Cymbalta] Pharmacy: [facility] citalopram No 0 Memoria 40 mg oral 2-06 Refill(s) l tablet 18:30: Zofran No Notes: Memoria 07-06 (Same as: l 02:49: Zofran) MEDICATION WASTE Product Size: 4 mg Product Wasted: ___ mg atorvastati No Notes: Gabe carolynn n 07-06 (Same as: l 02:00: Lipitor) Citalopram 0 No 20 mg, 2 Mem oria 07-06 tab, l 02:00: Route: PO, [place] 00 Drug form: TAB, Daily, Dosing Weight 87.415, kg, Start date: 07/05/19 21:00:00 CDT, Duration: 30 day, Stop date: 08/04/19 9:00:00 CDT, 0 Acetaminoph No Notes: Do M emoria en 07-05 not exceed l 23:41: 4 gm/day. Jeremias 00 (Same as: Tylenol) Lactulose No Notes: Memori a 667 MG/ML 07-05 (Same l Oral 18:29: as:Chronul [place] Solution 00 ac) Oxycontin No Notes: Do Mem oria 07-05 not crush l 15:21: or chew. [place] 00 (Same as: OxyContin) Dextrose No 12.5 gm, [...] days from ____Date Dopamine No Notes: Memoria 8-25 (Same as: l 14:30: Intropin) Administer by either central venous catheter or peripheral ly-inserte d central catheter (PICC) line. Final conc = 3.2 mg/ml. Premix solution. Simvastatin No Notes: Gabe carolynn 07-05 (Same as: l 14:00: Zocor) [place] 00 Aspirin No Notes: Do Memor ia 07-05 [...] MEQ/ML / 1,000, Sodium Start Lactate date: 0.07/04/19 MEQ/ML 18:07:00 Injectable CDT, Solution Duration: 30 day, Stop date: 08/03/19 18:06:00 CDT, 2.08, m2, 0 lactulose Yes 10 gm = 1 Mem oria 10 g oral 8-24 ea, PO, l powder 22:51: BID, 0 Jeremias 00 Refill(s) AMIODarone Yes 200 mg = 1 M emoria 200 mg oral 8-22 tab, PO, l tablet 19:30: Daily, # Jeremias 00 30 tab, 0 Refill(s), Pharmacy: [facility] Aspirin 81 Yes 81 mg = 1 Me moria MG Enteric 8-22 tab, PO, l Coated 19:30: Daily, # [place] Tablet 00 30 tab, 0 Refill(s), Pharmacy: [facility] Docusate Yes 100 mg = 1 Mem oria Sodium 100 8-22 cap, PO, l MG Oral 19:30: BID, # 60 Pilar nn Capsule 00 cap, 0 Refill(s), Pharmacy: [facility] Famotidine Yes 20 mg = 1 Me moria 20 MG Oral 8-22 tab, PO, l Tablet 19:30: BID, # 60 Telly n 00 tab, 0 Refill(s), Pharmacy: [facility] metoprolol Yes 12.5 mg = Me moria 25 mg oral 07-02 0.5 tab, l tablet, 19:30: PO, Daily, Herm jonas extended 00 # 15 tab, release 0 Refill(s), Pharmacy: [facility] polyethylen Yes See Memori a e glycol 07-02 Instructio l 3350 oral 19:30: ns, PRN Pilar nn kit 00 Constipati on, PO BID, # 30 kit, 0 Refill(s), Pharmacy: [facility] sennosides, Yes 17.2 mg = M emoria PRISON 8.6 MG 07-02 2 tab, PO, l Oral Tablet 19:30: Bedtime, X [place] 00 14 day, # 28 tab, 0 Refill(s), Pharmacy: [facility] Amiodarone No Notes: Memor ia 07-02 [...] moria 06-30 "Recommend l 21:50: ation: Use [place] 00 an in-line filter during administra tion for continuous infusions to reduce the incidence of phlebitis" (Same as Codarone) MEDICATION WASTE Product Size: 150 mg Product Wasted: ___ mg Furosemide No Notes: Memor ia 06-30 (Same as: l 20:38: Lasix) [place] 00 Miralax No Notes: Memoria 06-30 Dissolve l 15:04: in 8 oz of [place] 00 water or juice. (Same as: Miralax) glycerin No 1 supp, Memori a adult 06-30 Route: NV, l rectal 15:03: Drug Form: Pilar nn suppository 00 SUPP, Dosing Weight 83.182, kg, Daily, PRN Constipati on, Start date: 06/30/19 10:03:00 CDT, Duration: 30 day, Stop date: 07/30/19 10:02:00 CDT, 0 Fleet Enema 2019 No 12 years, Memoria 06-30 Pediatric l 15:03: Dosing, 0 [place] 00 citalopram No 20 mg = 1 Me moria 20 mg oral 820 tab, PO, l tablet 14:15: Daily, # [place] 00 30 tab, 0 Refill(s) metoprolol No Notes: Memor ia extended 06-30 (Same as: l release 14:00: Toprol XL) jonas Do Not Crush Lasix No Notes: Memoria 06-29 (Same as: l 00:00: Lasix) [place] 00 MEDICATION WASTE Product Size: 40 mg Product Wasted: ___ mg Lasix No Notes: Memoria 06-28 (Same as: l 20:52: Lasix) [place] 00 MEDICATION WASTE Product Size: 40 mg [...] 06-27 With food l 22:51: or milk [place] (Same as: Xanax) potassium No Notes: Memori a phosphate-s 06-27 (Same as: l odium 16:00: Phos-NaK) Jeremias phosphate 00 Each 1.5 gm pkt has 250mg phosphorou s. Mix w/2.5oz water and stir. K-Dur 10 No Notes: Memoria 8-17 (Same as: l 15:10: K-Dur 10) "Do Not Crush" With food and full glass of water LR IV 1,000 No 1,000 mL, M andrea mL -17 Rate: 100 l 14:52: ml/hr, Infuse over: 10 hr, Route: IV, Dosing Weight 83.182 kg, Total Volume: 1,000, Start date: 06/27/19 9:52:00 CDT, Duration: 30 day, Stop date: 07/27/19 9:51:00 CDT, 2, m2, 0 Reglan No Notes: Memoria 8-17 (Same as: l 14:51: Reglan) Potassium No Notes: Memori a Chloride 06-27 (Same as: l 14:51: KCL) Infuse no [...] (Same as: l odium 14:51: Phos-NaK) phosphate Each 1.5 250 mg-280 gm pkt has mg-160 mg 250mg oral powder phosphorou for s. Mix reconstitut w/2.5oz ion water and stir. Magnesium No Notes: Memori a Sulfate 06-27 WASTE: F/P l 14:51: - Sink; E - Municipal Trash Bin Magnesium No Notes: Memori a Oxide 06-27 (Same as: l 14:51: Mag-Ox [place] 400) Magnesium oxide [id number] g elemental magnesium Dose=____m g magnesium oxide (___mg elemental magnesium) Calcium No Notes: Memoria Gluconate 06-27 WASTE: F/P l 14:51: - Sink; E Jeremias - Municipal Trash Bin Calcium No Notes: Memoria Carbonate 06-27 (Same As: l 500 MG 14:51: Tums) [place] Chewable 00 Calcium Tablet Carbonate 500 mg [...] Memoria 8-16 (Same as: l 12:57: Benadryl) [place] 00 albumin No 25 gm, Memoria human 25% 06-25 Route: l intravenous 23:39: IVPB, Pilar nn solution 00 ONCE, Dosing Weight 83.182, kg, Start date: 06/25/19 18:39:00 CDT, Stop date: 06/25/19 18:39:00 CDT, Indication : Non-hemorr hagic shock ePHEDrine No Route: IV, Me moria (ANES) 06-25 Drug form: l 23:25: INJ, ONCE, Jeremias Stop date: 06/25/19 18:25:00 CDT Norepinephr 2019-0 No Notes: Gabe carolynn ine -15 Same as: l 23:14: Levophed. [place] Administer by either central venous catheter or peripheral ly-inserte d central catheter (PICC) line. Concentrat ion: 0.032 mg / mL Hydralazine 2019-0 No 10 mg, Gabe carolynn 06-25 Route: l 22:57: IVP, Jeremias 00 Q20Min, Dosing Weight 83.182, kg, PRN Elevated BP, Start date: 06/25/19 17:57:00 CDT, Duration: 2 doses or times, Stop date: Limited # of times Labetalol 2019-0 No 10 mg, Memori a 06-25 Route: l 22:57: IVP, Jeremias 00 Q5Min, Dosing Weight 83.182, kg, PRN Elevated BP, Start date: 06/25/19 17:57:00 CDT, Duration: 5 doses or times, Stop date: Limited # of times Metoprolol 2019-0 No 1 mg, Memori a 06-25 Route: l 22:57: IVP, [place] 00 Q5Min, Dosing Weight 83.182, kg, PRN [...] oria ne 06-25 Route: l 22:57: IVP, [place] 00 Q5Min, Dosing Weight 83.182, kg, PRN [...] Ondansetron 2018-0 No 4 mg, Memor ia 06-25 Route: l 22:57: IVP, ONCE, Dosing Weight 83.182, kg, PRN Nausea & Vomiting, Start date: 06/25/19 17:57:00 CDT glycopyrrol 2018-0 No Route: IV, Memoria ate (ANES) 06-25 Drug form: l 22:18: INJ, ONCE, Stop date: 06/25/19 17:18:00 CDT neostigmine 2018-0 No Route: IV, Memoria (ANES) 06-25 Drug form: l 22:18: INJ, ONCE, Stop date: 06/25/19 17:18:00 CDT ondansetron 2018-0 No Route: IV, Memoria (ANES) 06-25 Drug form: l 22:18: INJ, ONCE, Stop date: 06/25/19 17:18:00 CDT Lovenox 2018- No Notes: Memoria 8-15 (Same as: l 22:00: Lovenox) Jeremias 00 normal No 1,000 mL, Memori a saline [...] acetaminoph No Route: IV, Memoria en (ANES) 8- Drug form: l 20:04: INJ, ONCE, Stop date: 06/25/19 15:04:00 CDT heparin No Route: IV, Gabe carolynn (ANES) 8-15 Drug form: l 19:23: INJ, ONCE, Stop date: 06/25/19 14:23:00 CDT albumin 2018- No Route: IV, Gabe carolynn human 8-15 Drug form: l (ANES) 25 18:36: INJ, Start He rm date: 06/25/19 13:36:00 CDT, Stop date: 06/25/19 14:36:00 CDT lidocaine No Route: IV, Me moria (ANES) 8-15 Drug form: l 18:17: INJ, ONCE, Stop date: 06/25/19 13:17:00 CDT fentaNYL 2018-0 No Route: IV, Mem oria (ANES) 8-15 [...] 8-15 Rate: 25 l 0.0014 17:06: ml/hr, [place] MEQ/ML / 00 Infuse Potassium over: 40 Chloride hr, Route: 0.004 IV, Dosing MEQ/ML / Weight Sodium 83.182 kg, Chloride Total 0.103 Volume: MEQ/ML / 1,000, Sodium Start Lactate date: 0.028 06/25/19 MEQ/ML 12:06:00 Injectable CDT, Solution Duration: 30 day, Stop date: 07/25/19 12:05:00 CDT, 2, m2 vancomycin 2018- No Route: IV, Andriy emoria (ANES) 1000 8-15 Drug form: l mg 17:01: INJ, Start date: 06/25/19 12:01:00 CDT, Stop date: 06/25/19 13:01:00 CDT Lactated 2018-0 No Route: IV, Mem oria Ringers 8-15 Total l Injection 17:01: Volume: Pilar nn IV (ANES) 00 1,000, 1000 mL Start date: 06/25/19 12:01:00 CDT, Stop date: 06/25/19 13:01:00 CDT Norepinephr 2019-0 No Notes: Gabe carolynn ine 8-15 Same [...] No Notes: Memor ia 600 MG Oral 14 (Same as: l Tablet 14:00: Neurontin) Pilar nn 00 Simvastatin No Notes: Gabe carolynn 8-14 (Same as: l 14:00: Zocor) Alprazolam No Notes: Memor ia 8-14 With food l 14:00: or milk (Same as: Xanax) Lisinopril No Notes: Memor ia 8-14 (Same as: l 14:00: Prinivil, [place] 00 Zestril) Zofran No Notes: Memoria 8-14 (Same as: l 02:46: Zofran) MEDICATION WASTE Product Size: 4 mg Product Wasted: ___ mg sennosides, No Notes: Gabe carolynn PRISON 8-14 (Same as: l 02:00: Senokot) 200 [...] = 1 M emoria 600 MG Oral 814 tab, PO, l Tablet 00:41: TID, # 270 Pilar nn 00 tab, 0 Refill(s) Dextrose No 12.5 gm, Memor ia 50% Syringe 06-23 25 mL, l 22:52: Route: Jeremias 00 IVP, Drug Form: INJ, [...] MG 22:49: Roxicodone Herm jonas Oral Tablet 00 ) Dextrose No 12.5 gm, Memor ia 50% Syringe 06-23 25 mL, l 22:47: Route: [place] IVP, Drug Form: INJ, Dosing Weight 83.182, kg, PRN, PRN Blood Glucose Results, Start date: 06/23/19 17:47:00 CDT, Duration: 30 day, Stop date: 07/23/19 17:46:00 CDT, 0 Glucagon 2019-0 No 1 mg, Memoria 06-23 Route: IM, l 22:47: Drug form: [place] 00 PDR/INJ, PRN, Dosing Weight 83.182, kg, PRN Blood Glucose Results, Start date: 06/23/19 17:47:00 CDT, Duration: 30 day, Stop date: 07/23/19 17:46:00 CDT, 0 Trazodone 2019-0 No Notes: Memori a 06-23 (Same As: l 22:47: Desyrel) Lovenox 2019-0 No 40 mg, Memoria 06-23 Route: l 21:00: SUB-Q, Drug form: INJ, Q24H, Dosing Weight 83.182, kg, Priority: Within 8 hours, Start date: 06/23/19 16:00:00 CDT, Duration: 30 day, Stop date: 07/22/19 16:00:00 CDT Hydralazine 2019-0 No 10 mg, Gabe carolynn 06-23 Route: l 20:27: IVP, [place] 00 Q20Min, Dosing Weight 83.182, kg, PRN Elevated BP, Start date: 06/23/19 15:27:00 CDT, Duration: 2 doses or times, Stop date: Limited # of times Labetalol 2019-0 No 10 mg, Memori a 06-23 Route: l 20:27: IVP, [place] 00 Q5Min, Dosing Weight 83.182, kg, PRN [...] times Acetaminoph 2019-0 No 1,000 mg, M brittneyria en 06-23 Route: l 20:27: IVPB, Drug form: INJ, ONCE, Dosing Weight [...] carolynn 06-23 Route: l 20:27: IVP, PRN, [place] 00 Dosing Weight 83.182, kg, PRN Benzodiaze pine Reversal, Initial dose, Start date: 06/23/19 15:27:00 CDT, Duration: 30 day, Stop date: 07/23/19 15:26:00 CDT Naloxone 2019-0 No 0.4 mg, Memori a 06-23 Route: l 20:27: IVP, [place] 00 Q2MIN, Dosing Weight 83.182, kg, PRN Narcotic Reversal, Start date: 06/23/19 15:27:00 CDT, Duration: 8 doses or times, Stop date: Limited # of times Ondansetron 2019-0 No 4 mg, Memor ia 06-23 Route: l 20:27: IVP, ONCE, [place] Dosing Weight 83.182, kg, PRN Nausea & Vomiting, Start date: 06/23/19 15:27:00 CDT normal 2019-0 No 1,000 mL, Memori a saline 0.9% 06-23 Rate: 100 l IV 1,000 mL 20:22: ml/hr, Infuse over: 10 hr, Route: IV, Dosing Weight 83.182 kg, Total Volume: 1,000, Start date: 06/23/19 15:22:00 CDT, Duration: 30 day, Stop date: 07/23/19 15:21:00 CDT, 2, m2, 0 fentaNYL 2019-0 No Route: IV, Mem oria [...] 06-23 Total l 0.9% IV 19:26: Volume: [place] (ANES) 1000 1,000, mL Start date: 06/23/19 14:26:00 CDT, Stop date: 06/23/19 15:26:00 CDT Ancef + 2019-0 No Notes: Memoria sterile 06-23 (Same As: l water 20 mL 16:00: Ancef, Herm Kefzol) MEDICATION WASTE Product Size: 1000 mg Product Wasted: ___ mg Vancomycin No 2000 mg: Me moria 06-23 infuse l 16:00: over 2.5 Jeremias 00 hours For adult patients only: Round to nearest 250 mg per Medical Staff approval MEDICATION WASTE Product Size: 1000 mg Product Wasted: ___ mg Acetylcyste No Notes: Gabe carolynn ine 200 06-23 SEND TO l MG/ML 16:00: PRE-OP Jeremias Inhalant 00 SEND TO Solution PRE-OP SEND TO PRE-OP NS 1,000 mL No 1,000 mL, M emoria 06-23 Rate: 150 l 15:01: ml/hr, [place] 00 Infuse over: 6.7 hr, Route: IV, Dosing Weight 84.545 kg, Total Volume: 1,000, Start date: 06/23/19 10:01:00 CDT, Duration: 30 day, Stop date: 07/23/19 10:00:00 CDT, 2.06, m2, 0 aspirin 81 Yes COPD 81mg Take 1 Unive rs mg chewable 16 (chronic tablet by ity of tablet 00:00: obstructive mouth Jadiel as 00 pulmonary daily. Medical disease) Branch with acute bronchitis oxcarbazepi 2017-11 Yes 150 mg = 1 Memoria ne 150 MG -29 tab, PO, l Oral Tablet 20:04: Bedtime, # Jeremias [Trileptal] 00 30 tab, 3 Refill(s), Pharmacy: [facility] gabapentin 2017-11 Yes 600 mg = 1 M emoria 600 MG Oral 11-11 tab, PO, l Tablet 17:59: Daily, 0 [place] 00 Refill(s) Citalopram 2017-11 Yes 40 mg, PO, M emoria 1-01 Daily, 0 l 17:59: Refill(s) [place] 00 200 ACTUAT 2017-11 Yes 2 puff, Gabe carolynn Albuterol -01 INHALATION l 0.09 17:59: , Q6H, 0 [place] MG/ACTUAT 00 Refill(s) Metered Dose Inhaler [ProAir HFA] Lactulose 2017-11 Yes 10 gm = 15 Me moria 667 MG/ML 11-11 mL, PO, l Oral 17:59: BID, 0 Jeremias Solution 00 Refill(s) Omeprazole 2017-11 Yes 40 mg, PO, M emoria 11-11 Daily, 0 l 17:59: Refill(s) [place] Diclofenac 2017-11 Yes PO, 0 Memori a [...] 11-11 TID, PRN l 17:59: anxity, 0 [place] 00 Refill(s) Aspirin 2017-11 Yes 81 mg, [...] Memori a 11-11 puffs, l 17:59: INHALATION [place] 00 , Q6H, PRN Wheezing / cough / shortness of breath, # 1 ea, 0 Refill(s) Diclofenac 2017-11 Yes See Memoria Sodium 0.01 11-11 Instructio l MG/MG 17:59: ns, 2 Jeremias Topical Gel 00 mg-4mgTOP QID affected area, 0 Refill(s) Lisinopril 2017-11 Yes 10 mg, PO, M emoria - Daily, 0 l 17:59: Refill(s) [place] 00 Simvastatin 2017-11 Yes 20 mg, PO, Memoria - Daily, 0 l 17:59: Refill(s) [place] 00 3 ML 2017-11 Yes 600 mg, 0 Memoria Insulin 11-11 Refill(s) l Lispro 100 17:59: Jeremias UNT/ML Pen 00 Injector [Humalog] Ondansetron 2017-11 Yes 8 mg, PO, M emoria 11-11 Q8H, PRN l 17:59: nausea, 0 Jeremias 00 Refill(s) Reglan 2017-11 No 10 mg, PO, Memor ia 11-11 BID, 0 l 17:59: Refill(s) Jeremias 00 lactulose Yes 15mL Take 15 mL Un neo 10 gram/15 6-29 by mouth 2 ity of mL (15 mL) 00:00: (two) [facility] 00 times Medical daily. [place] Insulin 2015-11 Yes 35U inject 35 Unive rs Syringe-Nee 1-28 Units ity of dle U-100 00:00: under the Jadiel as (SURE 00 skin Medical COMFORT daily. [place] INSULIN SYRINGE) 1 mL 31 gauge x 5/16 Syrg Immunizations Ordered Filled Immunization Date Status Comments [facility] e Immunization Name Name Td 2018-02-05 Completed [facility] 00:00[facility]00 [facility] Tetanus/Diptheria 2018-02-05 Completed [facility] 00:00:00 [facility] TDAP 2015-11-24 Completed University 00:00:00 [facility] Influenza Virus 2009-08-08 Completed Universit [facility] of Vaccine 00:00:00 [facility] Influenza Virus 2001-12-18 Completed Universit [facility] of Vaccine - Whole 00:00:00 [facility] Vital Signs Vital Name Observation Time Observation Value Comments Source Systolic blood 2020-11-05 11:20:00 160 mm[Hg] [facility] Diastolic blood 2020-11-05 11:20:00 71 mm[Hg] [facility] S [facility] Heart rate 2020-11-05 11:20:00 90 /min [facility] Body temperature 2020-11-05 11:20:00 36.33 Alivia [facility] Respiratory rate 2020-11-05 11:20:00 18 /min [facility] Oxygen saturation in 2020-11-05 11:20:00 92 /min [facility] - Arterial blood by Medical Ce nter Pulse oximetry Body height 2020-11-01 19:07:00 172.7 cm [facility] Body weight 2020-11-01 19:07:00 78.472 kg [facility] BMI 2020-11-01 19:07:00 26.30 kg/m2 [facility] Systolic (mm Hg) 2020-03-16 14:30:00 Gabe rial [place] Diastolic (mm Hg) 2020-03-16 14:30:00 Mem orial Jeremias Heart Rate 2020-03-16 14:30:00 [facility] Respitory Rate 2020-03-16 14:30:00 Memori al Jeremias Temperature Oral (F) 2020-03-16 14:30:00 98.2 F [facility] [place] Height 2020-03-16 14:30:00 177.8 cm [facility] Weight 2020-03-16 14:30:00 [facility] BMI Calculated 2020-03-16 14:30:00 Memori al [place] Systolic (mm Hg) 2019-12-17 17:47:00 Gabe rial Jeremias Diastolic (mm Hg) 2019-12-17 17:47:00 Mem orial [place] Heart Rate 2019-12-17 17:47:00 [facility] [place] Respitory Rate 2019-12-17 17:47:00 Memori al [place] Height 2019-12-17 17:47:00 170.18 cm [facility] [place] Weight 2019-12-17 17:47:00 [facility] [place] BMI Calculated 2019-12-17 17:47:00 Memori al Jerem[place] Systolic (mm Hg) 2019-11-13 14:55:00 Gabe rial [place] Diastolic (mm Hg) 2019-11-13 14:55:00 Mem orial [place] Heart Rate 2019-11-13 14:55:00 [facility] [place] Respitory Rate 2019-11-13 14:55:00 Memori al Jeremias Height 2019-11-13 14:55:00 170.18 cm [facility] [place] Weight 2019-11-13 14:55:00 [facility] BMI Calculated 2019-11-13 14:55:00 Memori al [place] Respitory Rate 2019-07-06 20:00:00 Memori al [place] Systolic (mm Hg) 2019-07-06 20:00:00 Gabe rial [place] Diastolic (mm Hg) 2019-07-06 20:00:00 Mem orial Jeremias Respitory Rate 2019-07-06 19:00:00 Memori al [place] Systolic (mm Hg) 2019-07-06 19:00:00 Gabe rial Jeremias Diastolic (mm Hg) 2019-07-06 19:00:00 Mem orial [place] Respitory Rate 2019-07-06 18:00:00 Memori al Jeremias Systolic (mm Hg) 2019-07-06 18:00:00 Gabe rial Jerem[place] Diastolic (mm Hg) 2019-07-06 18:00:00 Mem orial Jeremias Temperature Oral (F) 2019-07-06 17:00:00 98.4 F [facility] [place] Temperature Oral (F) 2019-07-06 13:00:00 98.6 F [facility] Jerem[facility] Temperature Oral (F) 2019-07-06 09:00:00 98.1 F [facility] [place] Height 2019-07-04 22:35:00 175.26 cm [facility] [place] Weight 2019-07-04 22:35:00 [facility] [place] BMI Calculated 2019-07-04 22:35:00 Memori al Jeremias Respitory Rate 2019-07-02 20:00:00 Memori al [place] Systolic (mm Hg) 2019-07-02 20:00:00 Gabe rial Jeremias Diastolic (mm Hg) 2019-07-02 20:00:00 Mem orial [place] Respitory Rate 2019-07-02 19:00:00 Memori al Jeremias Systolic (mm Hg) 2019-07-02 19:00:00 Gabe rial Jeremias Diastolic (mm Hg) 2019-07-02 19:00:00 Mem orial [place] Respitory Rate 2019-07-02 17:00:00 Memori al [place] Systolic (mm Hg) 2019-07-02 17:00:00 Gabe rial [place] Diastolic (mm Hg) 2019-07-02 17:00:00 Mem orial [place] Temperature Oral (F) 2019-07-02 17:00:00 98.6 F [facility] Jeremias Temperature Oral (F) 2019-07-02 13:00:00 98.7 F [facility] [place] Height 2019-07-02 10:02:00 170.18 cm [facility] [place] Temperature Oral (F) 2019-07-02 09:00:00 99.2 F [facility] Height 2019-07-01 18:14:00 170.18 cm [facility] [place] Height 2019-07-01 09:16:00 170.18 cm [facility] Jeremias Heart Rate 2019-06-25 16:38:00 [facility] [place] Heart Rate 2019-06-25 12:53:00 [facility] Heart Rate 2019-06-25 07:51:00 [facility] [place] Weight 2019-06-23 15:01:00 [facility] [place] BMI Calculated 2019-06-23 15:01:00 Memori al [place] BMI Calculated 2018-10-23 15:03:00 Memori al [place] Height 2018-10-23 15:03:00 177.8 cm [facility] Jeremias Weight 2018-10-23 15:03:00 [facility] [place] Systolic (mm Hg) 2018-10-23 15:03:00 Gabe rial [place] Diastolic (mm Hg) 2018-10-23 15:03:00 Mem orial [place] Heart Rate 2018-10-23 15:03:00 [facility] [place] BMI Calculated 2018-10-09 19:30:00 Memori al Jeremias Weight 2018-10-09 19:30:00 [facility] [place] Height 2018-10-09 19:30:00 177.8 cm [facility] Respitory Rate 2018-10-09 19:30:00 Memori al Jeremias Heart Rate 2018-10-09 19:30:00 [facility] [place] Systolic (mm Hg) 2018-10-09 19:30:00 Gabe rial [place] Diastolic (mm Hg) 2018-10-09 19:30:00 Mem orial [place] BMI Calculated 2018-09-11 16:37:00 Memori al Jeremias Weight 2018-09-11 16:37:00 [facility] Jeremias Heart Rate 2018-09-11 16:37:00 [facility] [place] Height 2018-09-11 16:37:00 177.8 cm [facility] Systolic (mm Hg) 2018-09-11 16:37:00 Gabe rial Jeremias Diastolic (mm Hg) 2018-09-11 16:37:00 Mem orichristian Jeremias Procedures Procedure Date / Time Performing Clinician Source Performed HOME HEALTH - OTHER 2021-02-20 05:01:00 [facility] 2020-11-05 11:31:00 Lam Moreno [facility] CBC W/PLT COUNT & AUTO 2020-11-05 11:06:00 Lam Moreno [facility] [place] POCT-GLUCOSE METER 2020-11-05 08:26:00 [facility]SE [facility] 2020-11-04 21:03:00 [facility] POCT-GLUCOSE METER 2020-11-04 15:51:00 [facility] POCT-GLUCOSE METER 2020-11-04 11:16:00 [facility] 2020-11-04 04:52:00 [facility] POCT-GLUCOSE METER 2020-11-03 21:00:00 [facility] POCT-GLUCOSE METER 2020-11-03 15:59:00 [facility] POCT-GLUCOSE METER 2020-11-03 11:29:00 [facility] POCT-GLUCOSE METER 2020-11-03 07:35:00 [facility] CBC (HEMOGRAM ONLY) 2020-11-03 06:14:00 Joaquin Chapman [facility] BASIC METABOLIC PANEL 2020-11-03 06:14:00 Joaquin Chapman [address] POCT-GLUCOSE METER 2020-11-02 21:00:00 Lam Moreno [facility] POCT-GLUCOSE METER 2020-11-02 16:08:00 [facility] POCT-GLUCOSE METER 2020-11-02 12:22:00 [facility] POCT-GLUCOSE METER 2020-11-02 10:48:00 [facility] FL FLUORO NON-SPECIFIC 2020-11-02 08:51:00 Joaquin Chapman [facility] - UP TO 1 HOUR [facility] Center IM RODDING,FEMUR 2020-11-02 07:31:00 Joaquin Chapman [facility] PROCEDURE W/ C-ARM 2020-11-02 07:31:00 Joaquin Chapman [facility] POCT-GLUCOSE METER 2020-11-02 06:33:00 Davis, Elenita Koch [facility] CBC (HEMOGRAM ONLY) 2020-11-02 03:32:00 Joaquin Chapman [facility] BASIC METABOLIC PANEL 2020-11-02 03:32:00 Joaquin Chapman [facility] () [facility] TSH/FREE T4 IF 2020-11-02 03:32:00 Tommy [facility] VITAMIN B12 AND FOLATE 2020-11-02 03:32:00 Tommy [facility] POCT-GLUCOSE METER 2020-11-01 21:44:00 Davis, Elenita Koch [facility] ABORH, MANUAL 2020-11-01 16:43:00 Neema Stark [facility] TYPE AND SCREEN, 2020-11-01 16:19:00 Jameel Sarmiento [facility] AUTOMATED [facility] POCT-GLUCOSE METER 2020-11-01 13:03:00 Davis, Elenita Koch [facility] NM MYOCARDIAL PERFUSION 2020-11-01 11:50:00 Alma Rosa Schwartz [facility] - PET/CT (REST & STRESS) Medical C enter ECG 12-LEAD 2020-11-01 11:34:14 Unknown, Hl7 Doctor [facility] - [facility] TREADMILL 2020-11-01 11:34:12 Unknown, Hl7 Doctor [facility] - TOLERANCE(NON-NUCLEAR Medical Ce nter TREADMILL) 2D ECHO W/ DOPPLER 2020-11-01 09:32:00 Davis, Elenita Koch [facility] (CW/PW/COLOR) [facility] POCT-GLUCOSE METER 2020-11-01 07:29:00 [facility] A[facility]C 2020-11-01 06:11:00 Davis, [facility] VITAMIN D, 25-HYDROXY 2020-11-01 06:11:00 Davis, Elenita [facility] CBC (HEMOGRAM ONLY) 2020-11-01 06:11:00 Joaquin Chapman [facility] BASIC METABOLIC PANEL 2020-11-01 06:11:00 Joaquin Chapman [facility] () [facility] SARS-COV2/RT-PCR ([facility] 2020-10-31 21:55:00 Davis[facility] CBC W/PLT COUNT & AUTO 2020-10-31 21:50:00 [facility] BASIC METABOLIC PANEL 2020-10-31 21:50:00 [facility] TROPONIN I 2020-10-31 21:50:00 Davis, Elenita [facility] PROTHROMBIN TIME/INR 2020-10-31 21:50:00 Davis, Elenita Koch [facility] S [facility] XR LEG/TIBIA & FIBULA 2020-10-31 19:19:00 Jason Cev[facility] - LEFT 2 VIEWS [facility] XR FEMUR 2 VIEWS LEFT 2020-10-31 19:19:00 Jason Cevallos Ezequiel [facility] XR FOOT LEFT 3 VIEW 2020-10-31 19:19:00 Jason Cevallos [facility] XR ANKLE 3 VIEWS LEFT 2020-10-31 19:19:00 Jason Cevallos [facility] ECG 12-LEAD 2020-10-31 17:07:56 Elenita Davis 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 Test 00:00:00 measurement Medical Branch (procedure) [code = 12508164] Future Scheduled 2021-12-[address] [facility] Test 00:00:00 measurement, urine, Medical Branch quantitative (procedure) [code = 620003030] Future Scheduled 2021-11-26 Calculated low [facility] Test 00:00:00 density lipoprotein Medical Branch cholesterol level (procedure) [code = 926830286] Future Scheduled 2021-08-11 Depression screening [facility] Test 00:00:00 (procedure) [code = Medical Branch [id number]] Future Scheduled 2021-07-12 [facility] Test 00:[facility]:00 (Season Ended) [code Medical Branch = INFLUENZA VACCINE (Season Ended)] Future Scheduled 2021-07-12 INFLUENZA VACCINE [facility] Test 00:00:00 (Season Ended) [code Medical Center = INFLUENZA VACCINE (Season Ended)] Future Scheduled 2021-06-08 Hemoglobin A1c [facility] Test 00:00:00 measurement Medical Branch (procedure) [code = [id number]] Future Scheduled 2021-05-[address] [facility] [facility] Test 00:00:00 [facility] (procedure) [code = 48144294] Future Scheduled 2020-11-[address] [facility] - Test 00:00:00 (12+) [code = Medical Center DEPRESSION SCREENING (12+)] Future Scheduled 2020-04-[address] [facility] Test 00:00:00 malignant neoplasm of Medica l Branch lung (procedure) [code = 587871339] Future Scheduled 2006 Medicare [facility] Test 00:00:00 Wellness Visit Medical [facility] h (procedure) [code = 780830230406363] Future Scheduled 2006 [facility]00 65+ (1 of 1 - PPSV23) Medica l Branch [code = PNEUMOCOCCAL VACCINES 65+ (1 of 1 - PPSV23)] Future Scheduled 2006 PNEUMOCOCCAL 65+ YRS [facility] - Test 00:00:00 (1 of 1 - Medical Center [id number]) [code = PNEUMOCOCCAL 65+ YRS (1 of 1 - [id number])] Future Scheduled 1999-06-[address] [facility] - Test 00:00:00 WELLNESS (YEAR 2 or Medical Center FIRST YEAR if no IPPE) [code = MEDICARE ANNUAL WELLNESS (YEAR 2 or FIRST YEAR if no IPPE)] Future Scheduled 1991 Zoster Recombinant [facility] Test 00:00:00 Vaccine (SHINGRIX) (1 Medica l Branch of 2) [code = Zoster Recombinant Vaccine (SHINGRIX) (1 of 2)] Future Scheduled 1991 SHINGLES VACCINES ([address] [facility] - Test 00:00:00 of 2) [code = Medical Center SHINGLES VACCINES (1 of 2)] Future Scheduled 1960-01-14 DTAP/TDAP/TD VACCINES [facility] - Test 00:00:00 (1 - Tdap) [code = Medical C enter DTAP/TDAP/TD VACCINES (1 - Tdap)] Future Scheduled 1959 Diabetic [address] [facility] Test 00:00:00 examination Medical Branch (regime/therapy) [code = 928103059] Future Scheduled 1953 COVID-19 VACCINE (1) [facility] - Test 00:00:00 [code = COVID-[address] VACCINE (1)] Future Scheduled 1951 Examination of retina [facility] Test 00:00:00 (procedure) [code = Medical Branch 022436468] Future Scheduled 1950 DIABETIC EYE EXAM [facility] - Test 00:00:00 [code = DIABETIC EYE [facility] EXAM] Future Scheduled [address] [facility] examination [facility] Center (regime/therapy) [code = 081179565] Future Scheduled 1951 Urine screening for [facility] - Test 00:00:00 protein (procedure) Medical Center [code = 626921023] Encounters Start End Encounter Admission Attending Care Care Encounter Source Date/Time Date/Time Type Type Clinicians Facility Department ID 2019-07-04 Inpatient U [facility]SE PUL [id number] 17:33:00 [facility] 2021-04-27 2021-04-[address] [facility] [id number] 00:00:00 00:00:00 [facility] [id number] [place] 4.2.7.2.686 Professio [phone] nal [address] 2021-04-26 2021-04-26 [facility] [id number] 00:00:00 00:00:00 [facility] [id number] [place] 4.2.7.2.686 Professio [phone] nal 0[address] 2021-04-20 2021-04-20 [facility] [id number] 00:00:00 00:00:00 [facility] [id number] [place] 4.2.7.2.686 Professio [phone] nal 0[address] One 2020-07-19 2020-07-19 Outpatient YVONNE Sena NIYA [id number] 10:00:00 10:00:00 Fede 00 Chuckie 2020-07-19 2020-07-19 Outpatient Nathen, MHMISCHER MHMISCHER [id number] 10:00:00 10:00:00 Fede 10 Chuckie 2020-03-16 2020-03-16 Outpatient Nathen, MHMISCHER MHMISCHER [id number] 09:15:00 23:59:59 Fede 09 Chuckie 2019-12-17 2019-12-17 Outpatient Nathen, MHMISCHER MHMISCHER [id number] 11:45:00 23:59:59 Fede 08 Chuckie 2019-11-13 2019-11-13 Outpatient Nathen, MHMISCHER MHMISCHER [id number] 08:45:00 23:59:59 Fede 07 Chuckie 2019-07-04 2019-07-06 Outpatient Isak, MHSE MHSE [id number] 17:33:00 16:35:00 Timoteonela Hendrix 2019-06-24 2019-07-02 Outpatient Marisa, MHSE MHSE [id number] 13:43:00 15:37:00 Alejandroanendra Kamila Orman 2019-06-24 2019-06-23 Inpatient U [facility] MED [address] [place] [address] 13:43:00 15:31:00 [facility] angelo [facility] 2019-02-26 2019-02-26 Outpatient Nathen, MHMISCHER MHMISCHER [id number] 09:45:00 09:45:00 Fede 05 Chuckie 2018-11-20 2018-11-20 Outpatient Nathen, MHMISCHER MHMISCHER [id number] 13:15:00 13:15:00 Fede 03 Chuckie 2018-10-30 2018-10-31 Outpatient MHMISCHER MHMISCHER [id number] 14:29:00 23:59:59 Shannon 2018-10-23 2018-10-23 Outpatient Nathen, MHMISCHER MHMISCHER [id number] 09:30:00 23:59:59 Fede 04 Chuckie 2018-10-09 2018-10-09 Outpatient Nathen, MHMISCHER MHMISCHER [id number] 13:30:00 23:59:59 Fede 02 Chuckie 2018-09-26 2018-09-27 Outpatient MHMISCHER MHMISCHER [id number] 12:14:00 23:59:59 2018-09-25 2018-09-26 Outpatient YVONNE BANKSSCHER [id number] 11:25:00 23:59:59 2018-09-16 2018-09-16 Outpatient JOCELYN SenaSCHALESSANDRA BANKSSCHER [id number] 15:00:00 23:59:59 Fede Chuckie 2018-09-11 2018-09-11 Outpatient YVONNE SenaSCHER [id number] 11:30:00 23:59:59 Fede Chuckie Results Test Description Test Time Test Comments Results Result Sourc e Comments Treadmill Interface, External Ris C HI St tolerance(Non-Nu 6 In - 11/16/2020 10:[facility] Treadmill) 10:49:29 CSTProtocol Name Nv malu Regadenoson Time In Cente r Exercise Phase 00:01:00 [...] Test Item Value Reference Range Interpretation Comme [facility] POC-Glucose Meter (test code = 187 mg/dL 70-110 H : [facility]ED AT [facility] [address] [facility]) [facility], [facility] 30: Documentation Coordinator/Techni vance ID = [id number] for ELVIN SANTIAGO Lab Interpretation (test code = Abnormal 40733-5) [facility] [id number] 11:43:00 Test Item Value Reference Range Interpretation Comments POC-GLUCOSE METER 187 mg/dL 70-110 H : TESTED A T [facility] 6720 (BEAKER) (test code = MARCELA WRIGHT [place], 1538) [address]: Documentation Coordinator/Techni vance ID = [id number] for ELVIN ESQUIVEL CBC with platelet count + automated [id number] 11:30:00 Test Item Value Reference Range Interpretation Comments WBC (test code = 6690-2) 6.9 See_Comment [A utomated message] The system [employer] generated this result transmitted ref erence range: 3.5 - 10 .5 K/L. The refe rence range was not u sed to interpret this result as normal/abnor mal. RBC (test code = 789-8) 2.54 See_Comment L [Au tomated message] The system [employer] generated this result transmitted ref erence range: 4.63 - 6 .08 M/L. The refe rence range was not u sed to interpret this result as normal/abnor mal. MCHC (test code = 786-4) 31.9 See_Comment L [A utomated message] The system [employer] generated this result transmitted ref erence range: [...] See_Comment [Aut omated message] 777-3) The system [employer] generated this result transmitted ref erence range: 150 - 45 0 K/CU MM. The referen ce range was not u sed to interpret this result as normal/abnor mal. MPV (test code = 11.3 fL 9.4-12.4 78851-4) nRBC (test code = 413) 0 See_Comment [Aut omated message] The system [employer] generated this result transmitted ref erence range: [...] See_Comment [Aut omated message] 670) The system [employer] generated this result transmitted ref erence range: 1.78 - 5 .38 K/L. The refe rence range was not u sed to interpret this result as normal/abnor mal. # Lymphs (test code = 1.49 See_Comment [Auto mated message] 414) The system [employer] generated this result transmitted ref erence range: 1.32 - 3 .57 K/L. The refe rence range was not u sed to interpret this result as normal/abnor mal. # Monos (test code = 1.12 See_Comment H [Autom ated message] 415) The system [employer] generated this result transmitted ref erence range: 0.30 - 0 .82 K/L. The refe rence range was not u sed to interpret this result as normal/abnor mal. # Eos (test code = 416) 0.23 See_Comment [Au tomated message] The system [employer] generated this result transmitted ref erence range: 0.04 - 0 .54 K/L. The refe rence range was not u sed to interpret this result as normal/abnor mal. # Baso (test code = 417) 0.05 See_Comment [A utomated message] The system [employer] generated this result transmitted ref erence range: 0.01 - 0 .08 K/L. The refe rence range was not u sed to interpret this result as normal/abnor mal. Immature 1 % 0-1 Granulocytes-Relative (test code = 2801) Lab Interpretation (test Abnormal code = 74162-5) [facility] W/PLT COUNT & AUTO [id number] 11:30:00 Test Item Value Reference Range Interpretation [...] PERCENT (BEAKER) (test code = 2801) POCT-GLUCOSE [id number] 08:38:00 Test Item Value Reference Range Interpretation Comments POC-GLUCOSE METER 204 mg/dL 70-110 H : TESTED A T [facility] 6720 (BEAKER) (test code = [facility], [facility]) [address]: Documentation Coordinator/Techni vance ID = [id number] for BRIANNA SULLIVAN ELVIN POCT-GLUCOSE [id number] 21:15:00 Test Item Value Reference Range Interpretation Comments POC-GLUCOSE METER 156 mg/dL 70-110 H : TESTED A T [facility] 6720 (BEAKER) (test code = [facility], [facility]) 638[address]: Documentation Coordinator/Techni vance ID = [id number] for Berta mills, Dhara POCT-GLUCOSE [id number] 16:04:00 Test Item Value Reference Range Interpretation Comments POC-GLUCOSE METER 153 mg/dL 70-110 H : TESTED A T [facility] 6720 (BEAKER) (test code = [facility], [facility]) 51616: Documentation Coordinator/Techni vance ID = [id number] for Wi lliams, Areiona POCT-GLUCOSE [id number] 12:34:00 Test Item Value Reference Range Interpretation Comments POC-GLUCOSE METER 229 mg/dL 70-110 H : TESTED A T [facility] 6720 (BEAKER) (test code = [facility], [facility]) 78117: Documentation Coordinator/Techni vance ID = [id number] for Wi lliams, Areiona POCT-GLUCOSE [id number] 05:06:00 Test Item Value Reference Range Interpretation Comments POC-GLUCOSE METER 129 mg/dL 70-110 H : TESTED A T [facility] 6720 (BEAKER) (test code = [facility], [facility]) 12676: Documentation Coordinator/Techni vance ID = [id number] for WI LLIAMS, ELVIN POCT-GLUCOSE [id number] 21:18:00 Test Item Value Reference Range Interpretation Comments POC-GLUCOSE METER 184 mg/dL 70-110 H : TESTED A T [facility] 6720 (BEAKER) (test code = [facility], 153) 59948: Documentation Coordinator/Techni vance ID = [id number] for [place] LLIAMS, ELVIN POCT-GLUCOSE [id number] 16:12:00 Test Item Value Reference Range Interpretation Comments POC-GLUCOSE METER 245 mg/dL 70-110 H : TESTED A T [facility] 6720 (BEAKER) (test code = [facility], 1538) 48228: Documentation Coordinator/Techni vance ID = [id number] for Wi rbunildaiams, Areiona POCT-GLUCOSE [id number] 11:53:00 Test Item Value Reference Range Interpretation Comments POC-GLUCOSE METER 183 mg/dL 70-110 H : TESTED A T [facility] 6720 (BEAKER) (test code = [facility], 1538) 99656: Documentation Coordinator/Techni vance ID = [id number] for Wi lliams, Areiona POCT-GLUCOSE [id number] 08:15:00 Test Item Value Reference Range Interpretation Comments POC-GLUCOSE METER 165 mg/dL 70-110 H : TESTED A T [facility] 6720 (BEAKER) (test code = [facility], 1538) 92641: Documentation Coordinator/Techni vance ID = [id number] for Wi lliams, Areiona CBC (Hemogram only)2020-11-03 07:18:00 Test Item Value Reference Range Interpretation Comments WBC (test code = 6690-2) 7.9 See_Comment [A utomated message] The system [employer] generated this result transmitted ref erence range: 3.5 - 10 .5 K/L. The refe rence range was not u sed to interpret this result as normal/abnor mal. RBC (test code = 789-8) 2.40 See_Comment L [Au tomated message] The system [employer] generated this result transmitted ref erence range: 4.63 - 6 .08 M/L. The refe rence range was not u sed to interpret this result as normal/abnor mal. MCHC (test code = 786-4) 32.0 See_Comment L [A utomated message] The system [employer] generated this result transmitted ref erence range: [...] See_Comment [Aut omated message] 777-3) The system [employer] generated this result transmitted ref erence range: 150 - 45 0 K/CU MM. The referen ce range was not u sed to interpret this result as normal/abnor mal. MPV (test code = 10.5 fL 9.4-12.4 68298-0) nRBC (test code = 413) 0 See_Comment [Aut omated message] The system [employer] generated this result transmitted ref erence range: 0 - 0 /1 00 WBC. The refere nce range was not u sed to interpret this result as normal/abnor mal. Lab Interpretation (test Abnormal code = 47587-7) [facility] (HEMOGRAM ONLY)2020-11-03 07:18:00 Test Item Value Reference [...] (BEAKER) (test code = 413) Basic Metabolic [id number] 07:06:00 Test Item Value Reference Range Interpretation Comments Sodium (test code = 140 meq/L 799-232 6835-2) Potassium (test code = 4.6 meq/L 3.5-5.1 2823-3) Chloride (test code = 104 meq/L 98-107 2075-0) CO2 (test code = 27 meq/L 22-29 2028-9) BUN (test code = 25 mg/dL 7-21 H 3094-0) Creatinine (test code 1.36 mg/dL 0.57-1.25 H = 2160-0) Glucose (test code = 181 mg/dL 70-105 H 2345-7) Calcium (test code = 8.3 mg/dL 8.4-10.2 L 43540-4) EGFR (test code = 51 mL/min/1.73 [place] [address]-1) NOT ACCURATE CREATININE CLEARANCE IN PREDICTING GLOMERULAR FILTRATION RATE . ESTIMATED GFR I S NOT APPLICABLE FOR DIALYSIS PATIENTS. CADY (test code = CADY) Documentation Coordinator ID - TIMMY Campa Lab Interpretation Abnormal (test code = 82419-9) [facility] METABOLIC [id number] 07:06:00 Test Item Value Reference Range Interpretation [...] S NOT APPLICABLE FOR DIALYSIS PATIEN TS. Documentation Coordinator ID - TIMMY FPOCT-GLUCOSE [id number] 21:16:00 Test Item Value Reference Range Interpretation Comments POC-GLUCOSE METER 191 mg/dL 70-110 H : TESTED A T [facility] 6720 (BEAKER) (test code = [facility], 1538) 88178: Documentation Coordinator/Techni vance ID = [id number] for [place] LLIAMS, ELVIN POCT-GLUCOSE [id number] 16:20:00 Test Item Value Reference Range Interpretation Comments POC-GLUCOSE METER 201 mg/dL 70-110 H : TESTED A T [facility] 6720 (BEAKER) (test code = [facility], 1538) 75187: Documentation Coordinator/Techni vance ID = [id number] for FE LDER, XI POCT-GLUCOSE [id number] 12:34:00 Test Item Value Reference Range Interpretation Comments POC-GLUCOSE METER 167 mg/dL 70-110 H : TESTED A T [facility] 6720 (BEAKER) (test code = [facility], 1538) 54499: Documentation Coordinator/Techni vance ID = [id number] for FE LDER, XI POCT-GLUCOSE [id number] 11:00:00 Test Item Value Reference Range Interpretation Comments POC-GLUCOSE METER 171 mg/dL 70-110 H : TESTED A T [facility] 6720 (BEAKER) (test code = [facility], 1538) 73707: Documentation Coordinator/Techni vance ID = [id number] for [place] EM, YUDITH FL, FLUORO, NON-SPECIFIC, UP TO 1 [id number] 08:51:00Reason for exam:->IM Rodding Left Femur [facility] : 1940 Sex: MFluoroscopic unit utilized for a procedure performed in the OR. No interpretation was requested. Refer to the operative report for findings. Refer to PACS for patient radiation dose information.FL fluoro non-specific up to 1 [id number] 08:51:00 Interface, External Ris In 11/02/2020 8:59 AM CSTFluoroscopic unit utilized for a procedure performed in the OR. No interpretation was requested. Refer to the operative report for findings. Referto PACS for patient radiation dose information.[facility]PO[facility]SE [id number] 06:47:00 Test Item Value Reference Range Interpretation Comments POC-GLUCOSE METER 108 mg/dL 70-110 : TESTED A T [facility] 6720 (BEAKER) (test code = MARCELA Valdez [facility], 1538) 88759: Documentation Coordinator/Techni vance ID = [id number] for MARIKA SERNAAUGUSTO ELVIN TSH/Free T4 If [id number] 06:02:00 Test Item Value Reference Range Interpretation Comments TSH (test code = 1.932 See_Comment [Automated 54131-6) message] The system which generated this result transmit shannen reference range : 0.350 - 4.940 uIU/mL. The reference range was not used to interpret this result as normal/abnormal . CADY (test code = CADY) Documentation Coordinator ID - RADHA Andriy Lab Interpretation Normal (test code = 49353-8) [facility] HospitalVitamin B12 and [id number] 06:02:00 Test Item Value Reference Range Interpretation Comments Vitamin B12 (test 431 pg/mL 213-816 code = 2132-9) Folate (test code = 9.80 ng/mL See_Comment [Automa shannen 2284-8) message] The system which generated this result transmit shannen reference range : >=7.00. The reference range was not used to interpret this result as normal/abnormal . CADY (test code = CADY) Documentation Coordinator ID - RADHA M Lab Interpretation Normal (test code = 23677-6) [facility] HospitalTSH/FREE T4 IF [id number] 06:02:00 Test Item Value Reference Range Interpretation Comments THYROID STIMULATING HORMONE 1.932 uIU/mL 0.350-4.940 (BEAKER) (test code = 772) Documentation Coordinator ID - RADHA MVITAMIN B12 AND [id number] 06:02:00 Test Item Value Reference Range Interpretation Comments VITAMIN B12 (BEAKER) (test code = 431 pg/mL 213-816 774) FOLATE (BEAKER) (test code = 362) 9.80 ng/mL >=7.00 Documentation Coordinator ID - RADHA MBASIC METABOLIC [id number] 04:33:00 Test Item Value Reference Range Interpretation [...] S NOT APPLICABLE FOR DIALYSIS PATIEN TS. Documentation Coordinator ID Itzel GARCIA [facility] (HEMOGRAM ONLY)2020-11-02 04:06:00 Test Item Value [...] 0-0 (BEAKER) (test code = 413) POCT-GLUCOSE [id number] 22:00:00 Test Item Value Reference Range Interpretation Comments POC-GLUCOSE METER 241 mg/dL 70-110 H : TESTED A T [facility] 6720 (BEAKER) (test code = MARCELA WRIGHT [place], 1538) 34864: Documentation Coordinator/Techni vance ID = [id number] for ELVIN PHILLIPS, [id number] 17:35:00 Test Item Value Reference Range Interpretation Comments ABO Grouping (test code = 2588) O Rh Factor (test code = 2589) POS [facility] HospitalType and screen, [id number] 17:03:00 Test Item Value Reference Range Interpretation Comments ABO/RH AUTOMATED (BEAKER) (test O POSITIVE code = 2260) Ab Scrn (test code = 890-4) NEGATIVE [facility]2D Echo W/Doppler(CW/PW/Color)2020-11-01 16:29:24 Ejection FractionSLEH ECHO HEARTLAB MKCKESSON CPACSInterface, External Ris In - 11/01/2020 4:29 PM CSTTransthoracic Echocardiography Report (TTE) Demographics Patient Name NATE POWER Date ofStudy 11/01/2020 Gender Male Visit Number [id number] Race Unknown Room Number 1530 Number Date of 1940 Referring Elenita Davis MD Physician Age 80 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 AoV resting Peak Gradient = 24mmHg. Orxrvcpg-eu-dmtdcz AoV cusp calcification. Note Doppler interrogation is [...] TR Velocity: 2.62 m/s TR Gradient: 27.49 [facility], CARDIAC PERF REST AND [id number] 16:25:00Reason for exam:->pre-op clearance, poor functional capacity. h/o coronary stent [facility] : 1940 Sex: MFINAL REPORT PROCEDURE: MYOCARDIAL PERFUSION PET IMAGING (Rest/Stress)CPT CODE: 70893 INDICATION: Define Extent/Severity of Known CAD, Preoperative [...] MDReport Verified Date/Time: 11/01/2020 16:25:27 Reading Location: [address] P327B [facility] Reading Room NM Myocardial Perfusion Pet/CT (Rest & Stress)2020-11-01 16:25:00Interface, External Ris In - 11/01/2020 4:27 PM CSTFINAL REPORT PROCEDURE: MYOCARDIAL PERFUSION PET IMAGING (Rest/Stress)CPT CODE: 26321 INDICATION: Define Extent/Severity of Known CAD, Preoperative [...] prior study for comparison. Signed: Kervin Kang MDRepdavis Verified Date/Time:11/01/2020 16:25:27 Reading Location: [address] Reading Room Electronically signedby: KERVIN KANG MD on 11/01/2020 04:25 [facility] 12 [id number] 13:26:30Interface, External Ris In - 11/01/2020 1:26 PM CSTVentricular Rate 82 BPMAtrial Rate 82 BPMQRS Duration 146 msQ-T Interval 434 msQTC Calculation(Bazett) 507 msR [place] -80 degreesT [place] 37 degreesAtrial fibrillationRight superior axis deviationRight bundle branch blockNonspecific T wave abnormalityProlonged QTAbnormal ECG31 Oct 2020No significant changesConfirmed by MD PAULINO, [facility] ([id number]) on 11/01/2020 1:26:25 [facility] HospitalPOCT-GLUCOSE [id number] 13:15:00 Test Item Value Reference Range Interpretation Comments POC-GLUCOSE METER 144 mg/dL 70-110 H : TESTED A T [facility] 6720 (BEAKER) (test code = MARCELA Valdez [facility], 1538) 99366: Documentation Coordinator/Techni vance ID = [id number] for MARIXA MADDOX Hemoglobin [id number] 11:33:00 Test Item Value Reference Range Interpretation Comments Hemoglobin A1C (test code 6.2 % 4.3-6.1 H = 4548-4) CADY (test code = CADY) Documentation Coordinator ID - [id number] Lab Interpretation (test Abnormal code = 56396-9) [facility] HospitalHEMOGLOBIN [id number] 11:33:00 Test Item Value Reference Range Interpretation Comments HEMOGLOBIN A1C (BEAKER) (test code = 6.2 % 4.3-6.1 H 368) Documentation Coordinator ID - [id number]-CoV2/RT-PCR (Asymptomatic ONLY)2020-11-01 10:43:00 Test Item Value Reference Range Interpretation Comments SARS-COV2/RT-PCR Negative Not Detected, (test code = Negative, See 19904-3) external report for linked test SARS-COV-2 [facility] PERFORMING LAB (test code = 11642-0) CADY (test code = Negative result for [...] of the Act. Fact Sheet for Healthcare Providers:https://www.[employer].UsTrendy/sites/default/f laya/product/documents/F act_Sheet_HC_Providers_L gww_UVTV-TdJ-6.pdf Fact Sheet for Healthcare Patients:https://www.[employer].UsTrendy/sites/default/fi les/product/documents/Fa ct_Sheet_Patients_Lyra_S ARS-CoV-2.pdf Performing Laboratory:[place] [address] [place] [address] [facility] ([facility])2020-11-01 10:43:00 Test Item Value Reference Range Interpretation Comments SARS-COV2/RT-PCR (test Negative Not Detected, Negative, code = 6738400) See external report for linked test SARS-COV-2 PERFORMING LAB [facility] EUL[facility] (test code = 4545102) Negative result for this test determines that [...] 564(g) of the Act.Fact Sheet for Healthcare Providers:https://www.[employer].UsTrendy/sites/default/files/product/documents/Fact_Shee m_WR_Huzniuogd_Dglx_HJXF-UyG-1.pdfFact Sheet for Healthcare Patients:https://www.[employer].UsTrendy/sites/default/files/product/ documents/Exwj_Rnpdo_Pmtspyfl_Wyvv_PWWM-OkB-7.pdfPerforming Laboratory:[facility], [place] [address]QRHGW METABOLIC PANEL 2020-11-01 07:54:00 Test Item Value [...] S NOT APPLICABLE FOR DIALYSIS PATIEN TS. Documentation Coordinator ID - ROSIANGPOCT-GLUCOSE [id number] 07:40:00 Test Item Value Reference Range Interpretation Comments POC-GLUCOSE METER 144 mg/dL 70-110 H : TESTED A T [facility] 6720 (BEAKER) (test code = MARCELA Valdez [facility], 1538) 66035: Documentation Coordinator/Techni vance ID = [id number] for MARIXA MADDOX Vitamin D, [id number] 07:34:00 Test Item Value Reference Range Interpretation Comments Vitamin D 25-Hydroxy 23.5 ng/mL 6.6-49.9 (test code = 2764) CADY (test code = CADY) Effective 08/21/2017: Reference Range ChangeNew: 6.6-49.9 ng/mL Previous: 13.0-47.8 ng/mL Recommended Vitamin D Target Range: 30.0-40.0 ng/mLOperator ID - TRISH Johnson Lab Interpretation (test Normal code = 16225-6) [facility] HospitalVITAMIN D, [id number] 07:34:00 Test Item Value Reference Range Interpretation [...] = 413) RAD, FEMUR, MIN. 2 VIEWS, [id number] 03:58:00Reason for exam:->Leftt hip fxMOTION [facility]URE & [facility]Name: [facility] : 1940 Sex: MFINAL [...] 11/01/2020 03:58:30 RAD, FOOT, MIN 3 VIEWS, [id number] 03:58:00Reason for exam:->left foot painMOTION PICTURE & [facility]VISION [facility]ITALName: [facility]OWER : 1940 Sex: MFINAL [...] 11/01/2020 03:58:30 RAD, ANKLE, MIN 3 VIEWS, [id number] 03:58:00Reason for exam:- >left foot pain [facility] : 1940 Sex: MFINAL [...] Singh Verified Date/Time: 11/01/2020 03:58:30 RAD, LEG, [id number] 03:58:00Reason for exam:->left leg pain [facility] : 1940 Sex: MFINAL [...] Date/Time: 11/01/2020 03:58:30 XR femur 2 views [id number] 03:58:00Interface, External Ris In - 11/01/2020 4:00 [...] Signed: Nicole Singh Verified Date/Time: 11/01/2020 03:58:30 [facility] tibia and fibula 2 views [id number] 03:58:00Interface, External Ris In - 11/01/2020 4:00 [...] fracture of the left femur. Signed: Nicole [facility] Verified Date/Time: 11/01/2020 03:58:30 [facility] ankle 3 views [id number] 03:58:00Interface, External Ris In - 11/01/2020 4:00 [...] fracture of the left femur. Signed: Nicole Sinhg MDRcotyort Verified Date/Time: 11/01/2020 03:58:30 [facility] foot 3 views [id number] 03:58:00Interface, External Ris In - 11/01/2020 4:00 [...] Nicole Singh MDReport Verified Date/Time: 11/01/2020 03:58:30 [facility] I 2020-10-31 22:39:00 Test Item Value Reference Range Interpretation Comments Troponin I (test code = 0.02 ng/mL 0-0.03 94301-2) CADY (test code = CADY) Troponin I [...] DB Lab Interpretation (test Normal code = 93535-9) [place] [facility] [id number] 22:39:00 Test Item Value Reference Range Interpretation [...] failure, acidosis, acute neurological disease, and persistent tachyarrhythmia.Documentation Coordinator ID - DBBASIC METABOLIC PANEL 2020-10-31 22:32:00 Test Item Value Reference Range Interpretation Comments SODIUM (BEAKER) 132 meq/L 136-145 L (test code = 381) POTASSIUM (BEAKER) 5.1 meq/L 3.5-5.1 (test code = 379) CHLORIDE (BEAKER) 100 meq/L 98-107 (test code = 382) CO2 (BEAKER) (test 24 meq/L code = 355) BLOOD UREA NITROGEN 17 [...] S NOT APPLICABLE FOR DIALYSIS PATIEN TS. Documentation Coordinator ID - DBProthrombin time/[id number] 22:19:00 Test Item Value Reference Interpretation Comments Range Protime (test code = 15.4 See_Comment H [Autom ated 8952-2) message] The system which generated this result transmitted reference range : 11.9 - 14.2 seconds. The reference range was not used to interpret this result as normal/abnormal . INR (test code = 1.25 See_Comment [Automated 2851-6) message] The system which generated this result [...] valves. Lab Interpretation Abnormal (test code = 29835-5) [id number] 22:19:00 Test Item Value Reference Range Interpretation [...] mechanical heart valves.CBC W/PLT COUNT & AUTO SZZPGAETDHWL3172-57-43 22:08:00 Test Item Value Reference Range Interpretation [...] PERCENT (BEAKER) (test code = 2801) CHEM KTRTV2463-86-72 09:16:002.1[facility] NHYFO6967-46-24 09:16:003.5 [facility] JGFNQ3437-07-62 09:16:13281Ewxsctqe HermannCHEM PANEL 2019-07-06 09:16:0029[facility] HSWGI8674-84-68 09:16:001.12[facility] RWDFX8111-29-08 09:16:77972Cqscyxxq [facility] DVGTK8763-85-52 09:16:003.9[facility] RKBCS1745-18-26 09:16:26257Osvrwrxk [facility]CHE[facility] ZVQRX6925-46-72 09:16:0032[facility] QEREL9540-17-55 09:16:007.6 [facility] MPQML7830-95-93 09:16:006.9[facility]annCHE[facility] PANEL 2019-07-06 09:16:0063[facility] CAAGS8922-67-16 09:16:007.6[facility] NjbrfmwQASDWJXAPW2965-46-65 09:16:007.2[facility] WliuvtaJQMNVYJZOD8671-49-13 09:16:002.93[facility] OfvujvxAPTVQVYGZS5813-15-99 09:16:009.4[facility] QOGFPQTRGP7685-71-87 09:16:0028.1[facility] QydlqhmSWNSWQRKAZ6006-28-79 09:16:00 96.1[facility] EuqwnbfXUTREPAEJT9171-00-91 09:16:00 Test Item Value Reference Range Interpretation Comments MCH (test code = MCH) 32.1 pg 27.0-31.0 [facility] NbstwugUKWKKXBEVH1026-77-22 09:16:0033.4[facility]annHEMATOLOGY 2019-07-06 09:16:0016.1[facility] NplkygwMWQVTUGAYL4461-40-74 09:16:19530Vddyuptr VtatksxHJPFNZMJUD9617-15-94 09:16:007.9[facility]annSTIMULATION STUDIES 2019-07-06 09:16:0010.8[facility] QFTPLSC9052-19-48 16:00:00 Negative (07/05/19 11:00 AM)[facility] BKFBJHA5515-81-97 14:30:00 Product available 4(07/05/19 9:30 AM)[facility] VSYGV6492-86-14 09:10:007.6[facility]ann[facility] VYJAW2432-04-37 09:10:81242Ecxtaszw [facility]annCHE[facility] JQRSS6040-02-92 09:10:0045[facility]CHE[facility] ENMYT6349-59-51 09:10:001.69 [facility] WJVKB1638-32-50 09:10:48826Yqoyitek HermannCHEM PANEL 2019-07-05 09:10:003.7[facility]ann[facility] ZOJFT1771-05-73 09:10:48632Uqjqeear HermannCHEM SUGVI5836-14-35 09:10:0032[facility] PJCER3143-65-88 09:10:007.6[facility]annCHE[facility] KIOZA6515-30-82 09:10:008.7[facility]annCHE[facility] VPHDT4130-70-84 09:10:0038[facility] RKSIR7276-30-40 09:10:002.0 [facility] QXXCR2496-52-77 09:10:003.7[facility]annHEMATOLOGY 2019-07-05 09:10:008.6[facility] TjtwdycJOJENSOTIK0314-62-50 09:10:002.48[facility] TikkajiSQNFENSJLC4514-44-88 09:10:008.0[facility] MluaqirPTATOAPDIS3453-43-58 09:10:0024.1[facility] HmdzjssIJJKLKWTPZ8685-34-38 09:10:0097.1[facility] [place] [facility] SZWSPTBOFF5635-80-32 09:10:00 Test Item Value Reference Range Interpretation Comments MCH (test code = MCH) 32.2 pg 27.0-31.0 [facility] QkevtgzVOIMPXWSIT7253-56-38 09:10:0033.2[facility]annHEMATOLOGY 2019-07-05 09:10:0016.5[facility] QnkkmlsRQBOAGTPGP9496-01-76 09:10:01464Xrlujrhk VyqqhrtTENFZZENTE0291-16-80 09:10:008.5[facility] RomapkwQCVXGYCSMH3361-39-07 00:33:0011.0[facility] SybjdlfZXPXIUCEFB3122-06-19 00:33:002.89[facility] LDYBNEWTTD5533-04-08 00:33:009.3[facility] NkyiywdDHNSHHMUSH2873-86-50 00:33:00 27.9[facility] YlbxofoGQQBYPMIUI9027-87-43 00:33:0096.[facility]annHEMATOLOGY 2019-07-05 00:33:00 Test Item Value Reference Range Interpretation Comments MCH (test code = MCH) 32.2 pg 27.0-31.0 [facility] SopuoryGQEHMAWENR6394-85-87 00:33:0033.3[facility]annHEMATOLOGY 2019-07-05 00:33:0016.9[facility] CywquvxZRTNFGOILO7447-76-25 00:33:03140Hbrzefus RinuzcxZGZXMAHMEL4958-82-55 00:33:008.4[facility] PfwruqvRDXCLWUIOZ5893-37-22 00:33:0066.[facility] UrajjfdFTJPCKETXE9134-08-96 00:33:0012.6[facility] TOSIKGFMRX8717-50-13 00:33:0017.8[facility] NfowoedBOBKESTFKO9928-26-31 00:33:00 2.4[facility] QcqlqycDGNFHCEBEV8017-50-74 00:33:000.6[facility]annHEMATOLOGY 2019-07-05 00:33:007.4[facility] JlbspjkJPVIOHYCCT6210-93-23 00:33:001.4[facility] JtuthamNTZGUQILQL6779-93-24 00:33:002.0[facility] VewtkjpWDXZGUPRCD4587-30-56 00:33:000.3[facility] BxjtigwIJSMEZYFIG3071-63-04 00:33:000.1[facility] [place] CARDIAC VVVFXMT9844-92-81 00:33:000.07[facility]annCARDIAC DYFJOAD4260-90-65 00:33:94780Suwqgkkg [facility]annCHEM LAVPF7162-46-87 00:33:001.9[facility]annCHE[facility] YQEAI6455-17-00 00:33:003.4[facility] FvoszmdKXTNDXEVGCSH1771-88-22 00:33:009.8 [facility] JduohsyKKSAPTKTTYVG6860-78-99 00:33:00 Test Item Value Reference Range Interpretation Comments B/C Ratio (test code = B/C Ratio) 24 1 6-25 [facility] LslefpqMWJRSGCQYNZI4252-41-19 00:33:002.3[facility] HermannELECTROLYTES 2019-07-05 00:33:00 Test Item Value Reference Range Interpretation Comments A/G Ratio (test code = A/G Ratio) 1.2 1 0.7-1.6 [facility] CoymrwuQSTODVHSBBLV8498-31-27 00:33:79088Nifzdrqv HermannELECTROLYTES 2019-07-05 00:33:0046[facility] SmkjcgiTMDMHGBHRDJE8861-27-01 00:33:001.90[facility] IqxvnmgIHAPWBTOCSGY0428-16-05 00:33:47558Qhnggcwx NytchjbZEVENQKNBBZE9649-76-82 00:33:003.8[facility] MamkthkGIQZNSMAHDHZ9550-61-74 00:33:42053Cmawyjfk [place] KWAHQUJGXYMB4146-47-73 00:33:0032[facility] BpyygfnMJNBSPLWXBVL5241-58-33 00:33:00 5.1[facility] YqscffjAWYBQUDIMUXG5681-94-96 00:33:002.8[facility] [place] DRTQZPTJOPXU0768-68-22 00:33:0021[facility] VfeuuywWCBPWEPNLCYM0846-39-52 00:33:00 23[facility] PzexrjqDIFYXNMWZXWZ7401-66-27 00:33:06226Vnldbpib HermannELECTROLYTES 2019-07-05 00:33:001.6[facility] ExtqcwdVMNJAIGDFLVK0756-62-08 00:33:0033[facility] LmkayijIMKQTTFRJC7013-95-90 00:33:00 Test Item Value Reference Range Interpretation Comments INR (test code = INR) 1.16 1 0.85-1.17 [facility] YlnmssxPFUHOHODFK4569-54-42 00:33:00 Test Item Value Reference Range Interpretation Comments PT (test code = PT) 14.6 s 12.0-14.7 [facility] EiwvesgVQASPWPCXI1057-79-74 00:33:00 Test Item Value Reference Range Interpretation Comments PTT (test code = PTT) 33.0 s 22.9-35.8 [facility]annURINE FSSJ8491-84-49 23:37:0026[facility]annURINE CHEM 2019-07-04 23:37:98386.00[facility]annCHEM BDAZD6073-93-31 16:11:43864 [facility]annCHE[facility] ZWEFG5485-96-48 16:11:0024[facility]annCHEM PANEL 2019-07-02 16:11:001.31[facility]annCHEM YGEGM4027-36-91 16:11:77052Rlptsfve HermannCHEM EDOKB4025-84-28 16:11:004.1[facility]annCHEM LPMQO0467-63-52 16:11:90187Dwewrfrx HermannCHEM YXJMY3582-04-96 16:11:0031[facility]CHE[facility] YTZZG5431-36-81 16:11:0010.1[facility]annCHE[facility] ORQHB3802-33-70 16:11:008.2 [facility] BDSDG4338-26-38 16:11:0052[facility]annCHEM PANEL 2019-07-01 19:11:0092[facility]annCHE[facility] VAOJT9438-96-25 19:11:0021[facility]annCHEM CATYU3809-42-40 19:11:001.45[facility]annCHE[facility] UIRRG5106-49-01 19:11:94034Wvndkxky [facility]annCHE[facility] ETKRB8378-81-13 19:11:003.6[facility]annCHE[facility] OCKEQ2183-40-12 19:11:74547Nieabmuh HermannCHEM HGOIL6065-87-69 19:11:0030 [facility] MLQPT8283-87-24 19:11:008.1[facility]annCHEM PANEL 2019-07-01 19:11:0010.6[facility]annCHEM XWOTQ8626-09-91 19:11:0046[facility] HermannCARDIAC QYDURRT4334-04-42 16:38:14838Dechdlzf [facility]annCHEM OMRXF2390-28-81 16:38:04405Oiwdeufq [facility]annCHE[facility] BAFXN8324-70-45 16:38:0016[facility]annCHEM MUBYW0646-28-72 16:38:001.12[facility]annCHEM IZCIY1827-18-70 16:38:43795 [facility]CHE[facility] BZKLU2709-46-93 16:38:003.9[facility]annCHEM PANEL 2019-06-30 16:38:26636Paictkqe HermannCHEM AEUGC1945-32-96 16:38:0031[facility]annCHE[facility] CJXIJ8949-37-95 16:38:008.1[facility]annCHEM JJNLA8507-37-88 16:38:005.0[facility]annCHEM RHFUW5513-47-68 16:38:002.6[facility]annCHE[facility] MXJST5888-26-49 16:38:0029[facility]annCHEM UWFKZ4437-51-58 16:38:0011 [facility]annCHE[facility] KHAYI4964-18-86 16:38:0092[facility]annCHEM PANEL 2019-06-30 16:38:001.7[facility]annCHEM IWZHC5257-15-56 16:38:008.9[facility]annCHEM HVONI2893-68-79 16:38:00 Test Item Value Reference Range Interpretation Comments B/C Ratio (test code = B/C Ratio) 14 1 6-25 [facility]CHE[facility] AZRAR1026-20-84 16:38:002.4[facility]annCHEM PANEL 2019-06-30 16:38:00 Test Item Value Reference Range Interpretation Comments A/G Ratio (test code = A/G Ratio) 1.1 1 0.7-1.6 [facility]CHE[facility] HVZVR1948-27-47 16:38:0063[facility]annHEMATOLOGY 2019-06-30 16:38:009.0[facility] DhluylbQFLREOUBKA4200-15-44 16:38:002.65[facility] GlpwanaOBKAHEZNPV3105-77-16 16:38:008.5[facility] EsjybblNAIUULCYGB0103-18-08 16:38:0024.6[facility] NzaoybxYVZBWHPZQR1442-07-32 16:38:0092.6[facility] FFKAVPAVEM9883-04-07 16:38:00 Test Item Value Reference Range Interpretation Comments MCH (test code = MCH) 32.2 pg 27.0-31.0 [facility] FzaoveyVSUKWLFHYJ9470-01-43 16:38:0034.7[facility]annHEMATOLOGY 2019-06-30 16:38:0014.8[facility] QcppbmkUHLMWIJQUU1265-54-99 16:38:73424Ioxtdype VtosxkmKHKRJSSXBB0762-60-21 16:38:008.5[facility] XpghjmnGNHRBHITRK5259-82-27 18:44:009.6[facility] FzvcmbiUTLDIODDSR1253-47-03 18:44:003.10[facility] [place] KARQFSCQZP4485-22-56 18:44:0010.0[facility] SnexxlwKAPOBHVWNQ4462-44-86 18:44:00 29.0[facility] RiegwchKMZHLMBOCX3980-49-15 18:44:0093.5[facility]annHEMATOLOGY 2019-06-29 18:44:00 Test Item Value Reference Range Interpretation Comments MCH (test code = MCH) 32.1 pg 27.0-31.0 [facility] DybmpxqEPUZRNKRHE9510-98-71 18:44:0034.4[facility]annHEMATOLOGY 2019-06-29 18:44:0014.9[facility] ZgzocwjANJZLVZNQG7985-29-32 18:44:68870Utkbftkg ZeyrfbxUXPVVNVUMD2265-52-20 18:44:008.6[facility] YvymmgfZMSALBRCZO6513-92-45 18:44:0067.8[facility] MywapzuTAIHZSFOUO8485-32-39 18:44:0014.0[facility] NDMYWUTBFK4489-09-61 18:44:0015.7[facility] JiihbtjTNSPPHQHPM5996-96-07 18:44:00 2.2[facility] NrgqactRSZEDEMFYQ3250-82-76 18:44:000.3[facility]annHEMATOLOGY 2019-06-29 18:44:006.5[facility] DhevqjhRCJDDMDVCS9650-10-89 18:44:001.3[facility] NzupgnhJTWGSVMFCU6592-65-86 18:44:001.5[facility] MakzuxvCIAFQLPPGP4821-55-04 18:44:000.2[facility]annCHEM XJJDC2146-30-89 10:37:002.4[facility]annCHEM BQDIK0234-76-35 10:37:001.5[facility] UhkhezzNDTNTUPOXD1953-64-73 10:37:0061.5 [facility] SrexkdgCBKDVNWULA9162-26-62 10:37:0018.4[facility]annHEMATOLOGY 2019-06-29 10:37:0017.5[facility] BdcbdglQPKVIFQYBM7931-96-24 10:37:002.2[facility] RnzjkhlLAOOWNKRDR8929-41-65 10:37:000.4[facility] BqsqnchEZAEGPWMUJ2452-77-17 10:37:005.5[facility] RmlsdyhTRQPQXPVDV0070-35-18 10:37:001.7[facility] [place] NBMZUXZRDZ4430-99-11 10:37:001.6[facility] VqoavogZCOHPEFZPN1115-30-97 10:37:000.2 [facility] IxupigdCTDEBMHLII0796-75-76 10:37:009.0[facility]annHEMATOLOGY 2019-06-29 10:37:002.54[facility] YqehoqeSPDAIIIZIN3226-92-66 10:37:008.2[facility] HuhpqgkFGRUKMTVCE7369-62-34 10:37:0023.3[facility] NszmnqsALBSLLOFMC9733-20-09 10:37:0091.6[facility] UiugdeaTLPCAWJJBE5439-96-80 10:37:00 Test Item Value Reference Range Interpretation Comments MCH (test code = MCH) 32.1 pg 27.0-31.0 [facility] EoyhfdsVQWYRPFGTS8453-02-22 10:37:0035.1[facility]annHEMATOLOGY 2019-06-29 10:37:0014.9[facility] BofuqbsQBVWHPZWDG1692-22-45 10:37:29796Zfkcbtgf HnwoglaCDQSTPQOST3240-10-29 10:37:008.0[facility]annBLOOD BANK RESULTS 2019-06-28 20:52:00Product available (06/28/19 3:52 PM)[facility]BL[facility] B[facility] CWHGJVW7061-78-25 20:11:00Product available 4(06/28/19 3:11 PM)[facility] [place] BLOOD BANK RYDOWYH4427-70-16 13:27:00Negative (06/28/19 8:27 AM)[facility] [place] BLOOD BANK GZXZYYL5749-14-34 13:05:00Product available 5(06/28/19 8:05 AM) [facility]annCHE[facility] AHFPU5889-22-46 10:38:002.0[facility]annCHEM PANEL 2019-06-28 10:38:002.6[facility] EfyootuCMUWGUHIUL0262-34-63 10:38:0070.8[facility] FzbqhazNNDANRYONR7962-08-78 10:38:0013.5[facility] RzrhzseKSKJUCDKLH6099-65-52 10:38:0015.1[facility] YlnrhvfOYPULEXQBF0850-09-57 10:38:000.5[facility] RMKPFFQRVZ1880-74-09 10:38:000.1[facility] YeeicvtGHLNXKTUKH5453-81-31 10:38:009.3 [facility] DrqnkvzQNGYRTKFUU3715-59-66 10:38:001.8[facility]annHEMATOLOGY 2019-06-28 10:38:002.0[facility] AddwcekCJXLIFFXRL3042-23-14 10:38:000.1[facility]annCHEM CQGYS1216-21-39 23:14:002.2[facility]annCHEM ZERYD5514-43-40 23:14:003.3[facility] HermannCARDIAC OAHFDZA5996-72-96 23:30:000.03[facility] HermannPARATHYROID RGQMHQX9151-52-43 19:47:001.08[facility] HermannPARATHYROID IUDIAHS1096-43-65 19:47:001.10[facility]annBLOOD BANK BOOQSNI5709-20-97 16:13:00Negative (06/23/19 11:13 AM)[facility]mmPLBIDKBCMP9093-96-13 16:13:00 Test Item Value Reference Range Interpretation Comments INR (test code = INR) 1.17 1 0.85-1.17 [facility] HospitalPhunrlsBDPISCRNRN0138-17-78 16:13:00 Test Item Value Reference Range Interpretation Comments PT (test code = PT) 14.7 s 12.0-14.7 [facility] HospitalGlhopmrWBWRAPRDDH8135-79-08 16:13:00 Test Item Value Reference Range Interpretation Comments PTT (test code = PTT) 30.8 s 22.9-35.8 [facility] HospitalNpavivgDHFTQPEKSF7128-09-57 16:13:000.1[facility] [place]
[2021-05-01 08:24] LABS: Absolute Lymphocytes (CBC) 1.5 K/uL (0.7-4.9); Basophils % 0.9 % (0-1.3); Hematocrit 28.5 % (39.6-49.0); MPV 8.9 fL (7.6-11.3); RBC Red Blood Cell Count 3.09 M/uL (4.33-5.43)
--- NOTE | 2021-05-01 08:29 | RAD REPORT ---
EXAM DESCRIPTION: RAD - Chest Single View - 05/01/2021 8:14 am CLINICAL HISTORY: CONGESTION COMPARISON: Portable January 15 TECHNIQUE: AP portable chest image was obtained 05/01/2021 8:14 am . FINDINGS: Chronic interstitial lung disease is present not clearly different from comparison. Severi ty of disease could mask early interstitial edema or infiltrate. No new mass or consolidation. Heart and vasculature are normal. No measurable pleural effusion and no pneumothorax. No acute bony abnorma lity seen. No acute aortic findings suspected. IMPRESSION: Chronic interstitial lung disease not significantly different from January imaging. Severity of chronic disease could mask early edema or infiltrate.
[2021-05-01 08:32] LABS: Protime INR 1.7
[2021-05-01 08:44] LABS: ALT/SGPT 24 U/L (12-78); AST/SGOT 27 U/L (15-37); Albumin 2.4 g/dL (3.4-5.0); Alkaline Phosphatase 116 U/L (45-117); Amylase 21 U/L (25-115); BUN Blood Urea Nitrogen 51 mg/dL (7-18); Bicarbonate 33 mmol/L (21-32); Bilirubin Direct 0.4 mg/dL (0-0.2); Bilirubin Total 0.6 mg/dL (0.2-1.0); Creatine Phosphokinase 93 U/L (39-308); Glucose Level 165 mg/dL (74-106); Lipase 17 U/L (73-393); Potassium 4.3 mmol/L (3.5-5.1); Protein, Total 7.5 g/dL (6.4-8.2); Sodium Level 140 mmol/L (136-145); Troponin (Emerg Dept Use Only) 0.03 ng/mL (0.0-0.045)
[2021-05-01 08:55] LABS: CKMB Creatine Kinase MB < 1.0 ng/mL (1.0-3.6)
--- NOTE | 2021-05-01 09:15 | ER ---
Nurse's Notes [facility] Name: Mahnaz Baptiste Age: 81 yrs Sex: Male : 1940 Arrival Date: 05/01/2021 Time: 07:19 Bed 7 Private MD: Diagnosis: Unspecified open wound, right lower leg;Unspecified open wound, left lower leg;Tachycardia, unspecified;Edema, unspecified-left upper extremity Presentation: 05/01 07:19 Chief complaint: EMS states: Pt's reported left arm swelling since yesterday. Pt aa5 c/o chronic hip pain. 07:19 Coronavirus screen: At this time, the client does not indicate any symptoms associated aa5 with coronavirus-19. Ebola Screen: No symptoms or risks identified at this time. Initial Sepsis Screen: Does the patient meet any 2 criteria? HR > 90 bpm. Does the patient have a suspected source of infection? No. Patient's initial sepsis screen is negative. Risk Assessment: Do you want to hurt yourself or someone else? Patient reports no desire to harm self or others. Onset of symptoms was April 30, 2021. 07:19 Method Of Arrival: EMS: [facility] aa5 07:19 Acuity: ZIA 3 aa5 07:19 Care prior to arrival: Glucose check: 184. 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 Screenin:00 Abuse screen: No signs of abuse noted. Nutritional screening: Pt's reports aa5 malnutrition and only eats "high protein shakes" . Tuberculosis screening: No symptoms or risk factors identified. Fall Risk Secondary diagnosis (15 points) impaired mobility, IV access (20 points). Mental Status- Overestimates/Forgets Limitations (15 pts.). Total [place] Fall Scale indicates High Risk Score (45 or more points). Fall prevention measures have been instituted. Side Rails Up X 2 Placed Close to Nursing Station. Assessment: 07:20 General: Appears comfortable, Behavior is calm, cooperative. Pain: Complains of pain in aa5 joseph hip and joseph legs Unable to use pain scale. FLACC scale score is 5 out of 10. Neuro: Level of Consciousness is awake, obeys commands, confused, Oriented to person, time, situation, Recreational Specialist are weak bilaterally Moves all extremities. Speech is normal, Facial symmetry appears normal. Cardiovascular: Heart tones S1 S2 present Rhythm is atrial fibrillation with rapid ventricular response. Respiratory: Airway is patent Respiratory effort is even, unlabored, Respiratory pattern is regular, symmetrical, Breath sounds are clear bilaterally. GI: Abdomen is flat, non-distended, Bowel sounds present X 4 quads. Abd is soft and non tender X 4 quads. : No signs and/or symptoms were reported regarding the genitourinary system. EENT: No signs and/or symptoms were reported regarding the EENT system. Derm: Skin is dry, Skin is pale, Skin temperature is warm Large wounds noted to right calf and left calf, right calf with brownish drainage noted. Multiple necrotic wounds noted to joseph toes. Musculoskeletal: Swelling present in left hand and left arm Pt is non-ambulatory. 08:00 Reassessment: Pt's reports pt has had joseph leg wounds x 2 years, pt refused aa5 amputation of legs priorly, and was at [facility] for hyperbaric treatment to legs approximately 6 weeks ago. Pt's reports left wound has improved but right leg wound has gotten worse. . 08:22 Reassessment: Pt is a hard stick, unable to obtain IV access at this time, Charge Nurse iván notified. . 08:22 Neuro: Level of Consciousness is awake, obeys commands, confused, Oriented to person, aa5 time, situation. Respiratory: Airway is patent Respiratory effort is even, unlabored, Respiratory pattern is regular, symmetrical. Derm: Skin is dry, Skin is pale, Skin temperature is warm. 08:22 Reassessment: Pt's remains at bedside. . aa5 09:40 Reassessment: Dr. Malik (hospitalist) at bedside . aa5 09:40 Pain: Unable to use pain scale. FLACC scale score is 5 out of 10. Neuro: Level of aa5 Consciousness is awake, obeys commands, confused, Oriented to person, time, situation. Respiratory: Airway is patent Respiratory effort is even, unlabored, Respiratory pattern is regular, symmetrical. Derm: Skin is dry, Skin is pale, Skin temperature is warm. 10:49 Reassessment: Notified of NPO status per Dr. Malik. Pt's states "I already gave aa5 him his high protein drink about an hour ago". . 10:49 Reassessment: Pt resting in bed with eyes closed, pt's at bedside. . aa5 11:31 Reassessment: Pt resting in bed with eyes closed, respirations even and unlabored, skin aa5 is pale/warm/dry. Pt's remains at bedside. . 12:30 Neuro: Level of Consciousness is awake, obeys commands, confused, Oriented to person, aa5 time, situation. Respiratory: Airway is patent Respiratory effort is even, unlabored, Respiratory pattern is regular, symmetrical. Derm: Skin is dry, Skin is pale, Skin temperature is warm. 13:13 Reassessment: Unsuccessful attempt to call report to admitting nurse. . aa5 13:20 Neuro: Level of Consciousness is awake, obeys commands, confused, Oriented to person, aa5 time, situation. Respiratory: Airway is patent Respiratory effort is even, unlabored, Respiratory pattern is regular, symmetrical. Derm: Skin is dry, Skin is pale, Skin temperature is warm. Vital Signs: 07:19 BP 111 / 58; Pulse 114; Resp 18 S; Temp 98.2(O); Pulse Ox 100% on 3 lpm NC; aa5 09:30 BP 106 / 71; Pulse 107; Resp 18 S; Pulse Ox 97% on 3 lpm NC; aa5 10:10 BP 112 / 51; Pulse 105; Resp 16 S; Pulse Ox 100% on 3 lpm NC; aa5 11:20 BP 113 / 55; Pulse 98; Pulse Ox 99% on 3 lpm NC; aa5 12:20 BP 114 / 59; Pulse 114; Resp 18 S; Temp 97.8(TE); Pulse Ox 100% on 3 lpm NC; aa5 13:20 BP 139 / 59; Pulse 95; Resp 18 S; Temp 98.0(TE); Pulse Ox 100% on 3 lpm NC; aa5 ED Course: 07:19 Patient arrived in ED. bp 07:20 Arm band placed on Patient placed in an exam room, on a stretcher. aa5 07:20 Patient has correct armband on for positive identification. Placed in gown. Bed in low aa5 position. Call light in reach. Side rails up X2. library monitor on. Pulse ox on. NIBP on. 07:22 Tootie Parks, RN is Primary Nurse. aa5 07:25 Wilver Ramos MD is Attending Physician. ma2 07:34 Triage completed. aa5 08:07 Initial lab(s) drawn, by me, sent to lab. First set of blood cultures drawn by me. aa5 Missed attempt(s): 22 gauge in right antecubital area. Bleeding controlled, band aid applied, catheter tip intact. 08:13 Chest Single View XRAY In Process Unspecified. EDMS 08:21 Missed attempt(s): 22 gauge in right forearm. Bleeding controlled, band aid applied, aa5 catheter tip intact. 08:40 Missed attempt(s): 22 gauge in right antecubital area. Bleeding controlled, band aid iw applied, catheter tip intact. 08:50 Inserted saline lock: 22 gauge in right forearm, using aseptic technique. iw 08:58 EKG done, by ED staff, reviewed by Wilver Ramos MD. em1 09:15 Lb Malik is Hospitalizing Provider. ma2 09:17 UPPER EXTREMITY VENOUS UNILATE In Process Unspecified. EDMS 13:45 No provider procedures requiring assistance completed. Patient admitted, IV remains in aa5 place. Administered Medications: 09:30 Drug: NS 0.9% 500 ml Route: IV; Rate: 250 ml/hr; Site: right forearm; aa5 11:30 Follow up: IV Status: Completed infusion; IV Intake: 500ml aa5 10:30 Drug: Zosyn (piperacillin-tazobactam) 3.375 grams Route: IVPB; Infused Over: 60 mins; aa5 Site: right forearm; 11:30 Follow up: Response: No adverse reaction; IV Status: Completed infusion aa5 11:31 Drug: vancoMYCIN 1 grams Route: IVPB; Infused Over: 2 hrs; Site: right forearm; aa5 13:45 Follow up: Response: No adverse reaction; IV Status: Completed infusion aa5 Intake: 11:30 IV: 500ml; Total: 500ml. aa5 Outcome: 09:15 Decision to Hospitalize by Provider. ma2 13:45 Admitted to Med/surg accompanied by tech, family with patient, via stretcher, with aa5 oxygen, with chart, Report called to KISHOR Fabian 13:45 Condition: stable 13:45 Instructed on the need for admit, Demonstrated understanding of instructions. 13:47 Patient left the ED. Signatures: Dispatcher [employer] EDMS Chastity Dinh, KISHOR IVERSON Spencer Ortiz em1 Tootie Parks RN RN aa5 Doron Banks RN RN bp Wilver Ramos MD MD ma2 Corrections: (The following items were deleted from the chart) 09:43 09:35 CORONAVIRUS+MR.[email or web address].REJI drawn and sent. EDMS
--- NOTE | 2021-05-01 09:15 | EDPHYS ---
Physician Documentation [facility] Name: Mahnaz Baptiste Age: 81 yrs Sex: Male : 1940 Arrival Date: 05/01/2021 Time: 07:19 Bed 7 Private MD: ED Physician Wilver Ramos HPI: 05/01 09:08 This 81 yrs old Male presents to ER via EMS with complaints of Arm Problem, ma2 bilateral lower extremities wound. 09:08 The patient has experienced similar episodes in the past. patient has chronic lower ma2 extremities pressure wound of both lower extremities, that has gotten worse over the last few days.. he is tachycardic and pain has increased.. he also has left upper arm swelling since this morning.. he states he slept wile left arm is handing off the bed, hx of chf, he does not have left arm pain or trauma . Historical: - Allergies: 07:20 Morphine; aa5 - PMHx: 07:20 Chronic pain; Hypertension; Myocardial infarction; neuropathy; CHF; Diabetes; Vascular aa5 blockage to legs; Home O2 at 3L NC; 07:20 Atrial Fib; aa5 - PSHx: 07:20 Knee surgery; Fentanyl Pain Pump; AMPUTATED FINGER; Left leg bypass; Heart stents; BACK aa5 SURGERY x 5; - Social history:: Patient/guardian denies using alcohol, street drugs, The patient lives with family. ROS: 09:08 Constitutional: Negative for fever, chills, and weight loss. ma2 09:08 All other systems are negative. Exam: 09:08 Constitutional: This is a well developed, well nourished patient who is awake, alert, ma2 and in no acute distress. ENT: Nares patent. No nasal discharge, no septal abnormalities noted. Tympanic membranes are normal and external auditory canals are clear. Oropharynx with no redness, swelling, or masses, exudates, or evidence of obstruction, uvula midline. Mucous membranes moist. Neck: Trachea midline, no thyromegaly or masses palpated, and no cervical lymphadenopathy. Supple, full range of motion without nuchal rigidity, or vertebral point tenderness. No Meningismus. Chest/axilla: Normal chest wall appearance and motion. Nontender with no deformity. No lesions are appreciated. Cardiovascular: Regular rate and rhythm with a normal S1 and S2. No gallops, murmurs, or rubs. Normal PMI, no JVD. No pulse deficits. Respiratory: Lungs have equal breath sounds bilaterally, clear to auscultation and percussion. No rales, rhonchi or wheezes noted. No increased work of breathing, no retractions or nasal flaring. Abdomen/GI: Soft, non-tender, with normal bowel sounds. No distension or tympany. No guarding or rebound. No evidence of tenderness throughout. Back: No spinal tenderness. No costovertebral tenderness. Full range of motion. MS/ Extremity: bilateral le extremiites deep pressure wound from the ankle all the way to the knee, posteerior, deep with puss, tendons and bone exposed.. patient also has left ue swelling that is painless, no tenderness, pitting, 3+., distal to the elbow.. right UE is wnl with no swelling. Pulses equal, no cyanosis. Neurovascular intact. Full, normal range of motion. Neuro: Awake and alert, GCS 15, oriented to person, place, time, and situation. Cranial nerves II-XII grossly intact. Motor strength 5/5 in all extremities. Sensory grossly intact. Cerebellar exam normal. Normal gait. Vital Signs: 07:19 BP 111 / 58; Pulse 114; Resp 18 S; Temp 98.2(O); Pulse Ox 100% on 3 lpm NC; aa5 09:30 BP 106 / 71; Pulse 107; Resp 18 S; Pulse Ox 97% on 3 lpm NC; aa5 10:10 BP 112 / 51; Pulse 105; Resp 16 S; Pulse Ox 100% on 3 lpm NC; aa5 11:20 BP 113 / 55; Pulse 98; Pulse Ox 99% on 3 lpm NC; aa5 12:20 BP 114 / 59; Pulse 114; Resp 18 S; Temp 97.8(TE); Pulse Ox 100% on 3 lpm NC; aa5 13:20 BP 139 / 59; Pulse 95; Resp 18 S; Temp 98.0(TE); Pulse Ox 100% on 3 lpm NC; aa5 MDM: 07:25 Patient medically screened. ma2 09:08 Differential diagnosis: contusion, abrasion, tendonitis, bilateral le wound with ma2 sepsis, discussed with dr. chacko he plans on amputations. discussed with patient and they will consider that. discussed with dr. Jasso.. patient needs cardiac workup as well. .he laso needs left UE avery to rule out dvt.. 09:15 Data reviewed: vital signs, nurses notes. Counseling: I had a detailed discussion with [facility] the patient and/or guardian regarding: the historical points, exam findings, and any diagnostic results supporting the discharge/admit diagnosis, the presence of at least one elevated blood pressure reading (>120/80) during this emergency department visit, the need for further work-up and treatment in the hospital. 05/01 07:48 Order name: Wound Culture [facility] 05/01 07:48 Order name: Amylase, Serum 05/01 07:48 Order name: Basic Metabolic Panel [facility] 05/01 07:48 Order name: Blood Culture Adult (2) [facility] 05/01 07:48 Order name: CBC with Diff [facility] 05/01 07:48 Order name: Ckmb [facility] 05/01 07:48 Order name: CPK [facility] 05/01 07:48 Order name: Lactate; Complete Time: 08:47 [facility] 05/01 07:48 Order name: LFT's; Complete Time: 08:59 [facility] 05/01 07:48 Order name: Lipase; Complete Time: 08:59 [facility] 05/01 07:48 Order name: Procalcitonin; Complete Time: 08:59 05/01 07:48 Order name: Protime (+inr); Complete Time: 08:47 [facility] 05/01 07:48 Order name: Ptt, Activated; Complete Time: 08:47 [facility] 05/01 07:48 Order name: Troponin (emerg Dept Use Only); Complete Time: 08:59 la2 05/01 07:48 Order name: Urine Microscopic Only 05/01 07:48 Order name: Chest Single View XRAY; Complete Time: 08:47 2 05/01 07:48 Order name: Wound Culture [facility] 05/01 07:48 Order name: Amylase; Complete Time: 08:59 EDMS 05/01 07:48 Order name: Basic Metabolic Panel; Complete Time: 08:59 EDMS 05/01 07:48 Order name: Blood Culture [facility] 05/01 07:48 Order name: CBC with Automated Diff [facility] 05/01 07:48 Order name: CKMB Creatine Kinase MB; Complete Time: 08:59 [facility] 05/01 07:48 Order name: Creatine Phosphokinase; Complete Time: 08:59 [facility] 05/01 09:17 Order name: UPPER EXTREMITY VENOUS UNILATE [facility] 05/01 09:30 Order name: CBC Smear Scan [facility] 05/01 10:42 Order name: SARS-COV-2 RT PCR [facility] 05/01 07:48 Order name: Accucheck; Complete Time: 08:21 ma2 05/01 07:48 Order name: Cardiac monitoring; Complete Time: 08:21 ma2 05/01 07:48 Order name: EKG - Nurse/Tech; Complete Time: 08:58 ma2 05/01 07:48 Order name: IV Saline Lock - Large Bore; Complete Time: 09:40 ma2 05/01 07:48 Order name: Labs collected and sent; Complete Time: 08:20 ma2 05/01 07:48 Order name: O2 Per Protocol; Complete Time: 08:20 ma2 05/01 07:48 Order name: O2 Sat Monitoring; Complete Time: 08:21 ma2 Administered Medications: 09:30 Drug: NS 0.9% 500 ml Route: IV; Rate: 250 ml/hr; Site: right forearm; aa5 11:30 Follow up: IV Status: Completed infusion; IV Intake: 500ml aa5 10:30 Drug: Zosyn (piperacillin-tazobactam) 3.375 grams Route: IVPB; Infused Over: 60 mins; aa5 Site: right forearm; 11:30 Follow up: Response: No adverse reaction; IV Status: Completed infusion aa5 11:31 Drug: vancoMYCIN 1 grams Route: IVPB; Infused Over: 2 hrs; Site: right forearm; aa5 13:45 Follow up: Response: No adverse reaction; IV Status: Completed infusion aa5 Disposition: 05/01/21 09:15 Hospitalization ordered by Lb Malik for Inpatient Admission. Preliminary diagnosis are Unspecified open wound, right lower leg, Unspecified open wound, left lower leg, Tachycardia, unspecified, Edema, unspecified - left upper extremity . - Bed requested for Telemetry/MedSurg (Inpatient). - Status is Inpatient Admission. iw - Condition is Stable. - Problem is new. - Symptoms are unchanged. Signatures: Dispatcher [employer] EDMS Holly Ford RN RN dw Chastity Dinh RN RN Tootie Parks RN RN aa5 Wilver Ramos MD MD [facility] Corrections: (The following items were deleted from the chart) 09:17 08:25 Extremity Venous Uni Ltd+US.RAD.BRZ ordered. EDVA EDMS 09:43 07:49 CORONAVIRUS+MR.LAB.BRZ ordered. EDVA EDVA 12:11 09:15 Hospitalization Ordered by Lb Malik for Inpatient Admission. Preliminary diagnosis is Unspecified open wound, right lower leg; Unspecified open wound, left lower leg; Tachycardia, unspecified; Edema, unspecified - left upper extremity . Bed requested for Telemetry/MedSurg (Inpatient). Status is Inpatient Admission. Condition is Stable. Problem is new. Symptoms are unchanged. [facility] 13:43 07:48 Urine Dipstick-Ancillary ordered. [facility] aa5 13:47 12:11 05/01/2021 09:15 Hospitalization Ordered by Lb Malik for Inpatient Admission. Preliminary diagnosis is Unspecified open wound, right lower leg; Unspecified open wound, left lower leg; Tachycardia, unspecified; Edema, unspecified - left upper extremity . Bed requested for Telemetry/MedSurg (Inpatient). Status is Inpatient Admission. Condition is Stable. Problem is new. Symptoms are unchanged. dw
[2021-05-01 09:29] LABS: White Blood Cell Scan OK (OK)
[2021-05-01 09:30] LABS: Blood Morphology Comment NOT SEEN (NOT SEEN); Platelet Estimate ADEQ
[2021-05-01] MEDS ORDERED: VANCOMYCIN/NS 1 gm 1 GM/250 ML BAG IV SCH (09:45)
--- NOTE | 2021-05-01 09:46 | RAD REPORT ---
EXAM DESCRIPTION: US - UPPER EXTREMITY VENOUS UNILATE - 05/01/2021 9:34 am CLINICAL HISTORY: Left arm pain and swelling COMPARISON: November 2019 TECHNIQUE: Real-time sonographic evaluation of the left upper extremity deep venous systems was perf ormed. FINDINGS: Normal compressibility, flow augmentation, phasic flow and spontaneous flow are identified in the left upper extremity deep venous system. No intraluminal filling defects seen. Internal jugul ar and subclavian veins are normal as well. IMPRESSION: No DVT in the left upper extremity.
[2021-05-01] MEDS ORDERED: NA CHLORIDE 0.9% 500 ML ONE (09:54)
[2021-05-01] MEDS ORDERED: PIPER/TAZO/NS 3.375gm 3.375 GM/100 ML BAG ONE (09:55)
--- NOTE | 2021-05-01 10:40 | P.HP ---
Certification for Inpatient Patient admitted to: Inpatient With expected LOS: >2 Midnights Practitioner: I am a practitioner with admitting privileges, knowledge of patient current condition, hospital course, and medical plan of care. Services: Services provided to patient in accordance with Admission requirements found in Title 42 Section 412.3 of the Code of Federal Regulations Patient History Date of Service: 05/01/21 Reason for admission: Nonhealing lower extremity wounds History of Present Illness: 9-year-old gentleman with a history of 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 Patient noted to have large wound extending from the calf to the posterior ankle of both legs. Patient has been following with the [facility] Care [facility]. He was also treated with hyperbaric oxygen at [facility] recently. Arterial Doppler of the lower extremities done in January 2021 report advanced bilateral peripheral vascular disease. Family reports Dr. Ortiz has discussed amputation in the past. Dr. Ortiz was contacted who recommended hospitalization for IV antibiotics and for possible amputation. Allergies ciprofloxacin [From Cipro] Allergy (Verified 01/19/21 17:43) Itching morphine Allergy (Verified 10/05/20 13:36) Shortness of breath Home Medications: Alprazolam [Xanax] 1 mg PO TID PRN 01/24/21 Apixaban [Eliquis *] 2.5 mg PO BID 01/24/21 Ascorbic Acid [Vitamin C] 1,000 mg PO DAILY 01/24/21 Furosemide [Lasix] 80 mg PO PRN PRN 01/24/21 Metoprolol Succinate 12.5 mg PO DAILY 01/24/21 Simvastatin 20 mg PO DAILY 01/24/21 Trazodone HCl 100 mg PO BEDTIME 01/24/21 Vit A/Vit C/Vit E/Zinc/Copper [Preservision Areds Softgel] 1 cap PO DAILY 01/24/21 Gabapentin 1 tab PO DAILY 05/01/21 Mirtazapine 1 tab PO BEDTIME 05/01/21 Oxycodone HCl [Oxycontin] 1 tab PO Q8H 05/01/21 - Past Medical/Surgical History Diabetic: Yes -: Chronic pain -: HTN -: CAD with prior stents -: Diabetes mellitus type 2 insulin-dependent -: Peripheral vascular disease -: Hyperlipidemia -: GERD -: Chronic ulcers, 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 Lives at home. - Family History Father -: Heart disease Mother -: Heart disease - Social History Alcohol use: No CD- Drugs: No Caffeine use: Yes Physical Examination - Physical Exam General: In no apparent distress, Confused, Other (Awake) HEENT: Normocephalic, PERRLA, Mucous membr. moist/pink, Sclerae nonicteric Neck: Supple, JVD not distended, No Thyromegaly Respiratory: Clear to auscultation bilaterally, Normal air movement Cardiovascular: Regular rate/rhythm, Normal S1 S2, Other (No pedal pulse bilaterally), Edema (Left upper extremity) Gastrointestinal: Normal bowel sounds, Soft and benign, Non-distended Musculoskeletal: No clubbing, No contractures Integumentary: Other (Large deep ulcers with copious malodorous discharge extending from the calf to the ankle bilaterally.) Neurological: Normal strength at 5/5 x4 extr, Cranial nerves 3-12 intact, Other (Confused) Lymphatics: No axilla or inguinal lymphadenopathy - Studies Laboratory Data (last 24 hrs) 05/01/21 08:07: PT 19.7 H, INR 1.70, APTT 26.4 05/01/21 08:07: WBC 10.60, Hgb 9.5 L, Hct 28.5 L, Plt Count 218 05/01/21 08:07: Sodium 140, Potassium 4.3, BUN 51 H, Creatinine 1.46 H, Glucose 165 H, Total Bilirubin 0.6, AST 27, ALT 24, Alkaline Phosphatase 116, Amylase 21 L, Lipase 17 L Assessment and Plan - Problems (Diagnosis) (1) Infected wound Current Visit: Yes Status: Acute (2) Peripheral vascular disease Current Visit: Yes Status: Acute (3) Left upper extremity swelling Current Visit: Yes Status: Acute (4) Femoral-popliteal artery bypass graft Current Visit: No Status: Active (5) 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 Start broad-spectrum antibiotics to include Pseudomonas coverage. General surgery consulted. Dr. Ortiz is planning bilateral amputation. Pain management as needed. Local wound care for now. Follow cultures obtained in the ED. Insulin sliding scale for glucose management. Hold Eliquis in anticipation for surgery. Monitor CBC and renal function. Cardiology consult for preop clearance. - Advance Directives Does patient have a Living Will: Yes Does patient have a Durable POA for Healthcare: Yes
[2021-05-01] MEDS: INSULIN -REGULAR HUMAN 50 UNIT/0.5 ML ML SQ SCH ×3 (14:11→21:00)
[2021-05-01] MEDS: NA CHLORIDE 0.9% 1,000 ML IV SCH (15:14)
[2021-05-01] MEDS: CEFTAZIDIME 1 GM in NA CHLORIDE 0.9% 50 ML IV SCH ×3 (16:45→22:01)
[2021-05-01] MEDS: HEPARIN 5000 UNIT/ML 1 ML VIAL SQ SCH (16:47)
[2021-05-01] MEDS: ACETAMINOPHEN 500 MG TAB PO PRN (16:47)
--- NOTE | 2021-05-01 16:51 | CON ---
Date of Consultation: 05/01/2021 Reason For Consultation: Cardiac preop eval before surgery. History Of Present Illness: This is an elderly male with severe multiple ulcerations of the lower ex tremity, likely due to peripheral vascular disease, history of coronary artery disease, cardiac stent s placement in the past, hypertension, diabetes, dyslipidemia, presented with infected wound of both lower extremities, worse on the right side with drainage and we were consulted for preop evaluation, possible amputation. Evaluated the patient by bedside. He is a poor historian, however, he is known to our Cardiology Practice, Dr. Packer who follows the patient. Denies having any active chest devyn n at the present time. Past Medical History: As outlined above in the HPI. Medications: Refer to reconciliation sheet for detailed list. Allergies: CIPRO AND MORPHINE. Social History: Does not smoke or drink. Does not use drugs. Family History: No premature coronary artery disease or cancer. Review of Systems: All systems reviewed and they are negative except for what is mentioned in the HPI. Physical Examination: Vital Signs: Temperature is 98.0, pulse 95, breathing at 18, blood pressure 135/59, saturating 100%. General: This is an elderly male, no apparent distress. Head and Neck: Pupils are equal, reactive to light. Intact eye movements. No JVD. No cervical lym phadenopathy. Neck: Supple. Thyroid is not enlarged. Lungs: Clear to auscultation bilaterally. Heart: Irregularly irregular. No extra sounds. Abdomen: Soft, nontender. Bowel sounds positive. No organomegaly. No masses or hernia. No rigidi ty or rebound. Extremities: No cyanosis or clubbing. Multiple ulcerations and foul-smelling drainage with black di scoloration. This can be suspicious of possible gangrene. Neurologic: Alert, awake, oriented. No focal deficits appreciated. Lymph Nodes: No cervical or axillary lymphadenopathy. Investigations: Sodium 140, creatinine 1.46. White blood cell count is 10.6, hemoglobin 9.5. The v enous Doppler of lower extremities is negative for DVT. Echo from January 2021, poor windows, but EF a ppeared to be normal. Assessment And Recommendations: 1.Cardiac preoperative evaluation. We will obtain records from the office and recent cardiac workup including stress test that was done recently and echo and further determine the cardiac risk for a p ossible amputation surgery. 2.Significant peripheral vascular disease and status is not known. The patient is a poor historian. We will obtain records. We will discuss the case further with Dr. Packer and finalize the plan. Thank you for the consult. /JEFERSON Voice ID: [id number] Report ID: [id number]
[2021-05-01] MEDS ORDERED: CEFTAZIDIME 1 GM VIAL IV SCH (17:00)
[2021-05-01 18:52] LABS: Urine Appearance CLEAR (Clear); Urine Bilirubin NEGATIVE (Negative); Urine Blood NEGATIVE (Negative); Urine Color YELLOW (Yellow); Urine Glucose NEGATIVE (Negative); Urine Protein TRACE (Negative)
[2021-05-01 20:51] LABS: Urine Bacteria <20 /HPF (NONE SEEN); Urine RBC NONE SEEN /HPF (NONE SEEN)
[2021-05-01 23:11] LABS: Thyroid Stimulating Hormone 2.08 uIU/mL (0.360-3.740); Troponin I 0.03 ng/mL (0.0-0.045)
[2021-05-02] MEDS: HEPARIN 5000 UNIT/ML 1 ML VIAL SQ SCH ×3 (01:00→16:47)
[2021-05-02] MEDS: FENTANYL CITR 100 MCG/2 ML IV PRN ×4 (04:33→20:17)
[2021-05-02 04:41] LABS: Absolute Lymphocytes (CBC) 1.7 K/uL (0.7-4.9); Basophils % 0.9 % (0-1.3); Hematocrit 25.2 % (39.6-49.0); Lymphocytes % 19.5 % (15.3-44.8); MPV 8.2 fL (7.6-11.3); RBC Red Blood Cell Count 2.71 M/uL (4.33-5.43)
[2021-05-02 04:56] LABS: Albumin 2.1 g/dL (3.4-5.0); Bilirubin Total 0.5 mg/dL (0.2-1.0); Magnesium 1.9 mg/dL (1.8-2.4); Potassium 3.9 mmol/L (3.5-5.1); Protein, Total 6.2 g/dL (6.4-8.2)
[2021-05-02] MEDS: NA CHLORIDE 0.9% 1,000 ML IV SCH ×2 (05:39→16:51)
[2021-05-02] MEDS: INSULIN -REGULAR HUMAN 50 UNIT/0.5 ML ML SQ SCH ×4 (07:30→20:11)
[2021-05-02] MEDS: OXYCODONE *CR* 20 MG TAB PO SCH ×3 (08:30→09:36)
--- NOTE | 2021-05-02 08:33 | P.PN ---
Subjective Date of Service: 05/02/21 Chief Complaint: Nonhealing lower extremity wounds Subjective: No new changes (patient reports no significant change, reports he is having severe pain, on chronic pain medication - to restart today pain in both legs from heel up to thigh. with some confusion) Review of Systems 10-point ROS is otherwise unremarkable Physical Examination - Vital Signs Temperature: 99.6 F Blood Pressure: 133/63 Pulse: 93 Respirations: 22 Pulse Ox (%): 96 - Studies Laboratory Data (last 24 hrs) 05/01/21 08:07: PT 19.7 H, INR 1.70, APTT 26.4 05/01/21 08:07: WBC 10.60, Hgb 9.5 L, Hct 28.5 L, Plt Count 218 05/01/21 08:07: Sodium 140, Potassium 4.3, BUN 51 H, Creatinine 1.46 H, Glucose 165 H, Total Bilirubin 0.6, AST 27, ALT 24, Alkaline Phosphatase 116, Amylase 21 L, Lipase 17 L Microbiology Data (last 24 hrs): 05/01/21 08:07 Blood - Blood Anaerobic Blood Culture - Final 05/01/21 09:41 Wound - Left Chin Gram Stain - Final 05/01/21 08:45 Blood - Blood Blood Culture Gram Stain - Final Assessment & Plan Physician Review Additional Text: Physical Exam General: awake, in obvious discomfort, mild-mod confusion HEENT: PERRL, anicteric sclera, normal conjunctiva Respiratory: Clear to auscultation bilaterally, Normal air movement Cardiovascular: irregularly irregular rhyhtm, no lower extremity edema, diminished pulses Gastrointestinal: Soft and benign, Non-distended, non-tender Integumentary: b/l lower extremities with dressing in place, malodorous, b/l toes with eschar, diminished pulse Problem List cellulitis of lower extremity chronic wounds, Open wound knee/leg-complicated 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 Dr. Ortiz is planning bilateral amputation - possibly tomorrow Cardiology consulted for pre-op clearance/optimization patient to have cardiac stress test today Pain management - on fentanyl PRN, will restart home oxycontin - takes 80mg TID, will restart at 40mg for now, titrate up as needed/tolerated Local wound care for now. Follow cultures obtained in the ED - 1 of blood cultures growing GPC in clusters Insulin sliding scale for glucose management. Hold Eliquis in anticipation for surgery. Diet: NPO for now, can advance to AHA/diabetic diet after stress test Dispo: anticipate hospitalization > 48hrs, possible amputation tomorrow will likely need SNF, will discuss further with Time Spent Managing Pts Care (In Minutes): 40
[2021-05-02] MEDS: VANCOMYCIN 1.25 GM in NA CHLORIDE 0.9% 250 ML IVPB SCH (08:39)
[2021-05-02] MEDS ORDERED: KCL 20 MEQ/100 mL IVPB 20 MEQ/100 ML BAG IV SCH (09:00)
[2021-05-02] MEDS: ACETAMINOPHEN 500 MG TAB PO PRN (09:37)
[2021-05-02] MEDS ORDERED: REGADENOSON 0.4 MG/5 ML SYR IV ONE (10:37)
--- NOTE | 2021-05-02 13:04 | CON ---
Date of Consultation: 05/02/2021 Reason For Service: Severe peripheral vascular disease with gangrenous changes and necrotic wounds, bilateral lower extremity. History Of Present Illness: This is the case of a male, known by [facility] and by the surgical service. He has had these chronic wounds on the left lower extremity. More than a month a go about 2 months ago, he has recommended to have amputation of the right leg tendons, muscle exposed . Necrotic tissue is present, not surprised. He is not septic he has not done that. It was multiple times explained to the at length for hours explaining to them the importance of hav ing that amputation of the leg. For few occasions, we even have days available and suggested them wh en we see him in the [facility] to be admitted that same day, we would call ER, we call adm ission and the person at the last moment decided once again to go home. It has been like that for se veral months already. Now, the patient comes back again with necrotic wounds, which are unchanged fr om the previous one under previous recommendation of amputations still standing 4 months ago. We exp lained to the details, peripheral vascular disease, blood supply, imaging done, recovery treatme nt, what to expect after surgery, benefits, alternatives and risks of amputation at length multiple l ocations, but still decision is not made yet. Now, he comes here with the same problems. Allergies: CIPRO, MORPHINE. Past Medical History: Medical problems include peripheral vascular disease, heart disease, diabetes, coronary artery disease, hypertension. Past Surgical History: Surgeries include appendectomy, cholecystectomy, knee replacement, bilateral fem-pop, cardiac stents. Social History: He does not smoke. He does not drink alcohol. Family History: Heart disease. Review of Systems: Most of that was obtained from the patient's . Most of the time, the patient just says I have pa in and he understands that part. Physical Examination: General: The patient is awake, once again complaining of the leg pain bilateral. HEENT: Pupils equal and reactive. Respiratory: Bilateral breath sounds. Heart: S1, S2. Abdomen: Soft and depressible. Extremities: In the right lower extremity; the patient has large ulcers, gigantic, all over the leg including also the proximal leg just below the knee area with tendons, muscle exposed, necrotic tissu e all over the area that needs to be removed. Left side shows some ulcers. Those are show at least some kind of granulation tissue present with no major necrotic tissue that we have in the right side. Pulses on the right side are not assessed. Laboratory Data: Blood work; WBC count of 8.6, hemoglobin of 8.3. INR is 1.7. Chloride is 108, glu cose 126. Assessment: An 81-year-old patient, known by the surgical service due to severe peripheral vascular disease. The patient has previous revascularization in the past. The leg has been necrotic, has bee n exposing tendon and bone. Has multiple debridements with no progress at all. We recommended him s everal months ago amputation. Every time he came to clinic, we recommended the amputation of that le g. We even had asked him to go and stay with us right from the clinic and being admitted for an urge nt procedure and he is still refusing procedure. He has been in the clinic for several weeks. Now, I am seeing him back again. We have no progress, actually deterioration. We had the same recommenda tions and the patient and the family are still thinking about it, some hope, but the problem is that I believe this patient may develop sepsis before shows an improvement if any. So, once again he has entire leg involved, so we are going to have to go above-knee amputation. The patient has previous k nee surgery on the right side, so make the area challenging due to a previous knee surgery, but it st ill needs to be done. So, we recommend above-knee amputation stay away from the [facility], but there were some gangrenous changes in the leg that need to be addressed. So, the benefits, al ternatives, and risks were fully explained to the patient, which include, but not limited to infectio n, bleeding, damage to adjacent structures, anesthesia complication, PA, and even . He also und erstands this may not relieve any symptoms. He might need more than one surgical intervention. They are thinking about it. They did not going to sign a consent right now and I am going to put tentati vely the surgery for tomorrow pending cardiac clearance and their consent, and are we going to keep h im n.p.o. after midnight. JAMA/JEFERSON Voice ID: [id number] Report ID: [id number]
--- NOTE | 2021-05-02 13:13 | TREADPHA ---
DX: CHEST PAIN Date of Study: 05/02/2021 Ht: 0' 6 " Wt: 170 lb 0 oz Consulting Physician: ILYA MEDICATIONS: HISTORY: 81 YEAR OLD MALE WITH CORONARY ARTERY DISEASE. CARDIAC CLEARANCE. PHYSICIAL EXAMINATION: RESTING B.P.: 124/54 RESTING H.R.: 99 RESTING EKG: RIGHT BUNDLE BRANCH BLOCK, SINUS RHYTHM, PREMATURE ATRIAL COMPLEXES. PROTOCOL: LEXISCAN EXERCISE TIME: 3:30 B.P. AT PEAK STRESS: 112/48 IMPRESSION: LEXISCAN STRESS TEST PERFORMED. CARDIOLITE INJECTED PER PROTOCOL. SEE NUCLEAR MEDICINE REPORT. NO SUPRAVENTRICULAR TACHYCARDIA. NO VENTRICULAR TACHYCARDIA. FREQUENT PREMATURE ATRIAL COMPLEXES AND PREMATURE VENTRICULAR COMPLEXES NOTED THROUGHOUT STUDY.
--- NOTE | 2021-05-02 13:43 | RAD REPORT ---
EXAM DESCRIPTION: NM - Rest Stress Cardiac Imaging - 05/02/2021 1:18 pm CLINICAL HISTORY: Chest pain COMPARISON: None. TECHNIQUE: The patient was administered 10.2 mCi of Tc 99m Sestamibi prior to resting SPECT imaging of the heart. The patient was then administered 31.1 mCi of Tc 99m Sestamibi following exercise or ph armacologic stress. Multiplanar SPECT images were reviewed. FINDINGS: The end diastolic volume is 96 ml, the end systolic volume is 49 ml, and the ejection frac tion is 49 %. A very large area of markedly diminished activity is seen along the inferior wall from base apex. Thi s is most likely scarring rather than diaphragm attenuation artifact. No other areas of scarring or s tress ischemia identifiable. IMPRESSION: No stress-induced ischemic change. Very large fixed defect along the inferior wall believed to be scarring rather than attenuation artif act. This can be correlated with history in EKG findings. End-diastolic volume is normal range at 96 mL with only fractionally diminished ejection fraction 49% .
[2021-05-02] MEDS: OXYCODONE *CR* 20 MG TAB PO PRN (16:48)
[2021-05-02] MEDS: JUVEN PACKET PO SCH (20:22)
[2021-05-02] MEDS: GLUCERNA SHAKE 237 ML CAN PO SCH (20:22)
[2021-05-02] MEDS ORDERED: DOCUSATE NA 100 MG CAP PO ONE (20:47)
[2021-05-02] MEDS ORDERED: GLUCERNA SHAKE 237 ML CAN PO SCH (21:00)
[2021-05-02] MEDS: CEFTAZIDIME 1 GM in NA CHLORIDE 0.9% 50 ML IV SCH (22:18)
[2021-05-03] MEDS: OXYCODONE *CR* 20 MG TAB PO PRN ×2 (01:42→16:16)
[2021-05-03 05:20] LABS: Absolute Lymphocytes (CBC) 1.3 K/uL (0.7-4.9); Basophils % 0.8 % (0-1.3); Hematocrit 25.4 % (39.6-49.0); Lymphocytes % 17.7 % (15.3-44.8); MPV 8.3 fL (7.6-11.3); RBC Red Blood Cell Count 2.75 M/uL (4.33-5.43)
[2021-05-03 05:39] LABS: Potassium 3.7 mmol/L (3.5-5.1)
[2021-05-03] MEDS: NA CHLORIDE 0.9% 1,000 ML IV SCH ×2 (06:11→14:36)
[2021-05-03] MEDS: FENTANYL CITR 100 MCG/2 ML IV PRN ×3 (07:22→16:16)
[2021-05-03] MEDS: INSULIN -REGULAR HUMAN 50 UNIT/0.5 ML ML SQ SCH ×4 (07:30→21:00)
[2021-05-03] MEDS: CEFTAZIDIME 1 GM in NA CHLORIDE 0.9% 50 ML IV SCH ×2 (08:54→16:45)
[2021-05-03] MEDS: VANCOMYCIN 1.25 GM in NA CHLORIDE 0.9% 250 ML IVPB SCH (08:54)
[2021-05-03] MEDS: JUVEN PACKET PO SCH ×2 (08:54→21:00)
[2021-05-03] MEDS: GLUCERNA SHAKE 237 ML CAN PO SCH ×3 (08:55→21:00)
[2021-05-03] MEDS ORDERED: CEFTAZIDIME 1 GM in NA CHLORIDE 0.9% 50 ML IV SCH ×2 (09:00→23:00)
[2021-05-03] MEDS ORDERED: KCL 20 MEQ/100 mL IVPB 20 MEQ/100 ML BAG IV SCH (09:00)
[2021-05-03] MEDS: ONDANSETRON 4 MG/2 ML VIAL IV PRN ×2 (10:05→17:23)
[2021-05-03] MEDS ORDERED: NA CHLORIDE 0.9% 1,000 ML ONE (10:41)
[2021-05-03] MEDS ORDERED: BUPIVACAINE 0.5% Inj,MDV 50 mL VIAL ONE (10:41)
[2021-05-03] MEDS ORDERED: LIDOCAINE 1% MPF 5 ML VIAL ONE (10:45)
[2021-05-03] MEDS ORDERED: propofoL 200 MG/20 ML VIAL IV ONE ×2 (10:45→12:20)
--- NOTE | 2021-05-03 11:11 | P.PN ---
Subjective Date of Service: 05/03/21 Chief Complaint: Nonhealing lower extremity wounds Subjective: Other (pain better controlled yesterday, now having some increased pain since NPO for surgery today. minimal appetite, drank one protein shake last night) Review of Systems 10-point ROS is otherwise unremarkable Physical Examination - Vital Signs Temperature: 98.7 F Blood Pressure: 138/62 Pulse: 106 Respirations: 20 Pulse Ox (%): 100 - Studies Microbiology Data (last 24 hrs): 05/01/21 09:41 Wound - Left Chin Gram Stain - Final 05/01/21 09:41 Wound - Left Chin Culture & Sensitivity - Final Pseudomonas Aeruginosa Enterobacter Cloacae 05/01/21 08:45 Blood - Blood Blood Culture Gram Stain - Final 05/01/21 08:45 Blood - Blood Gram Stain - Final 05/01/21 08:07 Blood - Blood Anaerobic Blood Culture - Final Assessment & Plan Physician Review Additional Text: Physical Exam General: awake, in discomfort, cachectic HEENT: PERRL, anicteric sclera, normal conjunctiva Respiratory: Clear to auscultation bilaterally, Normal air movement Cardiovascular: irregularly irregular rhyhtm, no lower extremity edema, diminished pulses Gastrointestinal: Soft and benign, Non-distended, non-tender Integumentary: posterior RLE with gangrenous ulceration along lower leg, malodorous, LLE: eschar noted at superior margin of wound, healthier/pink tissue inferiorly. b/l toes with eschar. 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 Dr. Ortiz is planning bilateral amputation today Cardiology consulted for pre-op clearance/optimization, pt with negative cardiac stress test Pain management - on fentanyl PRN, restarted home oxycontin yesterday - takes 80mg TID Local wound care for now. Insulin sliding scale for glucose management. Hold Eliquis in anticipation for surgery. Diet: NPO for surgery Dispo: anticipate hospitalization > 48hrs, possible amputation today. may need more than 1 procedure ID recommends LTAC for LLE wound care, antibiotics, PT Time Spent Managing Pts Care (In Minutes): 40
[2021-05-03] MEDS ORDERED: FENTANYL CITR 100 MCG/2 ML ONE (11:14)
--- NOTE | 2021-05-03 11:14 | PN ---
Subjective: This is an 81-year-old male, about to go for AKA on the right side. The patient has nec rotic ulceration all the way from his heel to back of his knee on both legs. Left leg has 80% granul ation tissue and 20% eschar and necrotic tissue noted at the top region, right leg with foul odor and 100% necrotic tissue. Objective: Vital Signs: Temperature 98.7, pulse 106, respirations 20, blood pressure 138/62. Lungs: Basal crackles. Heart: S1, S2. Regular. Abdomen: Soft. Bowel sounds present. Extremity: Right leg with foul odor and necrotic ulceration to the back of his leg from ankle to his calf muscle behind knee region and left leg 80% granulation tissue and 20% necrotic and eschar noted . Laboratory Data: Shows WBC 7.6, hemoglobin 8.5, platelets are 313. Chemistry shows sodium 142, pota ssium 3.7, chloride 107, bicarb 29, BUN 35, creatinine 1.49, glucose is 150. Micro data; Pseudomonas aeruginosa and Enterobacter cloacae. Medications: Include Fortaz and vancomycin. See MAR for other medications. Allergies: TO CIPRO AND MORPHINE. Assessment And Plan: Bilateral lower extremity stage IV ulceration and cellulitis with severe periph eral vascular disease, history of femoral-popliteal artery bypass graft, diabetes mellitus, chronic a nemia, muscle wasting syndrome, chronic kidney disease stage 3, infection with Pseudomonas and Entero bacter cloacae, currently being treated with Fortaz and vancomycin. Continue current treatment. Britany ly Medihoney and Betadine to the left leg. The patient to go for AKA on the right side. Recommend to be transferred to [facility] for further care. We will follow the patient as needed. NF/MODL Voice ID: [id number] Report ID: [id number]
[2021-05-03] MEDS ORDERED: BUPIVACAINE 0.75% (PF) 2 ML SP ONE (11:18)
[2021-05-03] MEDS ORDERED: LIDOCAINE 1% MPF 2 ML AMPULE ONE (11:20)
[2021-05-03] MEDS ORDERED: Phenylephrine HCl 10 MG/ML 1 ML VIAL ONE (12:02)
--- NOTE | 2021-05-03 12:26 | P.BOP ---
Preoperative diagnosis: Right leg gangrene Postoperative diagnosis: same Primary procedure: R IVANAA Interline Clerk: ITZEL FERREIRA (SOFTWARE DEVELOPMENT MANAGER) Estimated blood loss: <100cc Specimen: leg Findings: as above Anesthesia: Spinal Complications: None Drain(s): GARRICK drain Transferred to: Recovery Room Condition: Good
[2021-05-03] MEDS: HEPARIN 5000 UNIT/ML 1 ML VIAL SQ SCH (16:45)
[2021-05-03] MEDS ORDERED: HYDROMORPHONE HCL 0.5 MG/0.5 ML INJ IV ONE (18:00)
--- NOTE | 2021-05-03 21:05 | PN ---
Date of Progress Note: 05/02/2021 Mr. Baptiste was seen by Dr. Ashby on 05/01/2021 for cardiac clearance before amputation. Has sever e multiple ulcerations on the lower extremity due to the peripheral arterial disease. Has had a hist ory of CAD, status post stent, hypertension, diabetes, dyslipidemia. He had an echocardiogram in Jan that showed a normal ejection fraction. A stress test, which was done on 05/02/2021, shows a normal ejection fraction without any evidence of ischemia, so we will clear for surgery by Dr. Meenakshi mina. Continue his present regimen. I would like to know if the patient at home takes Eliquis, which should probably resolve once the surgery is done and when he is ready to go home. BIJAL/JEFERSON Voice ID: [id number] Report ID: [id number]
--- NOTE | 2021-05-03 21:56 | PN ---
Date of Progress Note: 05/03/2021 Subjective: Mr. Baptiste underwent a right wugjp-kea-biiz amputation today under spinal anesthesia b y Dr. Ortiz and has so far done well. He remained in chronic atrial fibrillation. Has no cardiac symptoms. He has hypertension, dyslipidemia, diabetes, peripheral arterial disease, CAD status post stent with a normal echo and abnormal stress test yesterday. We will continue his present regimen. Should be placed on Eliquis as soon as Dr. Ortiz is comfortable with that. We will continue to f ollow him. BIJAL/JEFERSON Voice ID: [id number] Report ID: [id number]
[2021-05-04] MEDS: CEFTAZIDIME 1 GM in NA CHLORIDE 0.9% 50 ML IV SCH ×3 (01:27→19:40)
[2021-05-04] MEDS: HEPARIN 5000 UNIT/ML 1 ML VIAL SQ SCH ×3 (01:28→19:39)
[2021-05-04] MEDS: NA CHLORIDE 0.9% 1,000 ML IV SCH ×3 (05:14→22:34)
[2021-05-04] MEDS: OXYCODONE *CR* 20 MG TAB PO PRN ×3 (05:26→22:54)
[2021-05-04 06:10] LABS: Absolute Lymphocytes (CBC) 0.7 K/uL (0.7-4.9); Basophils % 0.2 % (0-1.3); Hematocrit 27.8 % (39.6-49.0); Lymphocytes % 4.2 % (15.3-44.8); MPV 8.1 fL (7.6-11.3); RBC Red Blood Cell Count 2.98 M/uL (4.33-5.43)
[2021-05-04 06:20] LABS: Albumin 2.1 g/dL (3.4-5.0); Bilirubin Total 0.5 mg/dL (0.2-1.0); Magnesium 1.7 mg/dL (1.8-2.4); Potassium 3.7 mmol/L (3.5-5.1); Protein, Total 6.5 g/dL (6.4-8.2)
[2021-05-04] MEDS ORDERED: Magnesium Sulfate 2gm IVPB 2 G/50 ML BAG IV ONE (06:39)
--- NOTE | 2021-05-04 06:48 | P.PN ---
Subjective Date of Service: 05/04/21 Chief Complaint: Nonhealing lower extremity wounds Subjective: Other (pain improved overnight, didn't ask for much medication per nursing. patient in discomfort this morning. afib with RVR) Review of Systems 10-point ROS is otherwise unremarkable Physical Examination - Vital Signs Temperature: 97.9 F Blood Pressure: 159/67 Pulse: 146 Respirations: 18 Pulse Ox (%): 99 - Studies Microbiology Data (last 24 hrs): 05/01/21 09:41 Wound - Left Chin Gram Stain - Final 05/01/21 09:41 Wound - Left Chin Culture & Sensitivity - Final Pseudomonas Aeruginosa Enterobacter Cloacae 05/01/21 08:45 Blood - Blood Blood Culture Gram Stain - Final 05/01/21 08:45 Blood - Blood Gram Stain - Final Assessment & Plan Physician Review Additional Text: Physical Exam General: awake, in discomfort, cachectic HEENT: PERRL, anicteric sclera, normal conjunctiva Respiratory: Clear to auscultation bilaterally, poor inspiratory effort Cardiovascular: irregularly irregular rhythm, HR:120, no edema Gastrointestinal: Soft, Non-distended, non-tender Integumentary: s/p R BKA, surgical dressing c/d/i, LLE: eschar noted at superior margin of wound, healthier/pink tissue inferiorly. L toes with eschar Problem List open wound/ necrosis of RLE, now s/p R AKA (05/03) Peripheral vascular disease h/o Femoral-popliteal artery bypass graft Diabetes mellitus, type 2; non-insulin dependent Chronic Anemia Chronic kidney disease, stage 3 Chronic afib, on eliquis continue broad-spectrum Abx - vanc & ceftaz blood cultures likely contaminant, wound culture growing MDR bacteria, ID consulted General surgery consulted. Dr. Ortiz - s/p R AKA on 05/03 Cardiology consulted for pre-op clearance/optimization, pt with negative cardiac stress test, now with afib with RVR, restarted home metoprolol, repeat EKG, IV lopressor this AM if BP tolerates Pain management - on fentanyl PRN, home oxycontin - takes 80mg TID. seems more comfortable Local wound care on LLE Insulin sliding scale for glucose management. Hold Eliquis today Diet: ADA Dispo: anticipate hospitalization > 48hrs, s/p amputation, pain control, antibiotics, will discuss further with general surgery ID recommends LTAC for LLE wound care, antibiotics, PT consult PT Time Spent Managing Pts Care (In Minutes): 45
[2021-05-04 07:51] LABS: Blood Morphology Comment NOT SEEN (NOT SEEN); Platelet Estimate ADEQ; White Blood Cell Scan OK (OK)
[2021-05-04] MEDS ORDERED: METOPROLOL TARTRATE 5 MG/5 ML INJ IV STA ×2 (09:04→15:25)
[2021-05-04] MEDS: POTASSIUM 25 MEQ EFFERV TAB PO SCH (09:06)
[2021-05-04] MEDS: INSULIN -REGULAR HUMAN 50 UNIT/0.5 ML ML SQ SCH ×4 (09:07→22:32)
[2021-05-04] MEDS: JUVEN PACKET PO SCH ×2 (09:08→22:33)
[2021-05-04] MEDS: GLUCERNA SHAKE 237 ML CAN PO SCH ×3 (09:08→22:33)
[2021-05-04] MEDS: METOPROLOL XL 25 MG TAB PO SCH (09:08)
--- NOTE | 2021-05-04 10:32 | P.PN ---
Subjective Date of Service: 05/04/21 Chief Complaint: Nonhealing lower extremity wounds Patient seen examined at bedside status post right AKA on 05/03. Surgery went well with no complications. Increase in WBC likely reactive. Continue broad- spectrum IV antibiotic coverage. Review of Systems 10-point ROS is otherwise unremarkable Physical Examination - Vital Signs Temperature: 97.9 F Blood Pressure: 159/67 Pulse: 146 Respirations: 18 Pulse Ox (%): 99 - Physical Exam General: Alert, Cachectic HEENT: Atraumatic, Normocephalic Neck: Supple, 2+ carotid pulse no bruit Respiratory: Clear to auscultation bilaterally, Normal air movement Cardiovascular: No edema, Normal pulses, Other (tachy) Capillary refill: <2 Seconds Gastrointestinal: Soft and benign, Non-distended Musculoskeletal: Other (right AKA on 05/03. 1 drain present. ) Integumentary: Other (left PVD wound: extends from knee to ankle on lateral aspect of chavez. 10% of wound shows necrotic tissue, remain is mix of granulation and fibrin tissue) - Studies Laboratory Last Values WBC 10.60 K/uL (4.3-10.9) 05/01/21 08:07 RBC 3.09 M/uL (4.33-5.43) L 05/01/21 08:07 Hgb 9.5 g/dL (13.6-17.9) L 05/01/21 08:07 Hct 28.5 % (39.6-49.0) L 05/01/21 08:07 MCV 92.1 fL (80-100) 05/01/21 08:07 MCH 30.6 pg (27.0-35.0) 05/01/21 08:07 MCHC 33.2 g/dL (32.0-36.0) 05/01/21 08:07 RDW 14.7 % (12.1-15.2) 05/01/21 08:07 Plt Count 218 K/uL (152-406) 05/01/21 08:07 MPV 8.9 fL (7.6-11.3) 05/01/21 08:07 Neutrophils % 76.2 % (41.7-73.7) H 05/01/21 08:07 Lymphocytes % 14.0 % (15.3-44.8) L 05/01/21 08:07 Monocytes % 8.0 % (3.3-12.3) 05/01/21 08:07 Eosinophils % 0.9 % (0-4.4) 05/01/21 08:07 Basophils % 0.9 % (0-1.3) 05/01/21 08:07 Absolute Neutrophils 8.1 K/uL (1.8-8.0) H 05/01/21 08:07 Absolute Lymphocytes 1.5 K/uL (0.7-4.9) 05/01/21 08:07 Absolute Monocytes 0.8 K/uL (0.1-1.3) 05/01/21 08:07 Absolute Eosinophils 0.1 K/uL (0-0.5) 05/01/21 08:07 Absolute Basophils 0.1 K/uL (0-0.5) 05/01/21 08:07 Platelet Estimate Adeq 05/01/21 08:07 Clumped Platelets Few present 05/01/21 08:07 Morphology Comment Not seen (NOT SEEN) 05/01/21 08:07 PT 19.7 SECONDS (9.5-12.5) H 05/01/21 08:07 INR 1.70 05/01/21 08:07 APTT 26.4 SECONDS (24.3-36.9) 05/01/21 08:07 Sodium 140 mmol/L (136-145) 05/01/21 08:07 Potassium 4.3 mmol/L (3.5-5.1) 05/01/21 08:07 Chloride 105 mmol/L (98-107) 05/01/21 08:07 Carbon Dioxide 33 mmol/L (21-32) H 05/01/21 08:07 BUN 51 mg/dL (7-18) H 05/01/21 08:07 Creatinine 1.46 mg/dL (0.55-1.3) H 05/01/21 08:07 Estimated GFR 46 mL/min (=/>90) L 05/01/21 08:07 Glucose 165 mg/dL (74-106) H 05/01/21 08:07 Lactic Acid 1.2 mmol/L (0.4-2.0) 05/01/21 08:07 Calcium 9.5 mg/dL (8.5-10.1) 05/01/21 08:07 Total Bilirubin 0.6 mg/dL (0.2-1.0) 05/01/21 08:07 Direct Bilirubin 0.4 mg/dL (0-0.2) H 05/01/21 08:07 AST 27 U/L (15-37) 05/01/21 08:07 ALT 24 U/L (12-78) 05/01/21 08:07 Alkaline Phosphatase 116 U/L (45-117) 05/01/21 08:07 Creatine Kinase 93 U/L (39-308) 05/01/21 08:07 CK-MB (CK-2) < 1.0 ng/mL (1.0-3.6) L 05/01/21 08:07 Rapid Troponin I 0.03 ng/mL (0.0-0.045) 05/01/21 08:07 Serum Total Protein 7.5 g/dL (6.4-8.2) 05/01/21 08:07 Albumin 2.4 g/dL (3.4-5.0) L 05/01/21 08:07 Globulin 5.1 g/dL (2.3-3.5) H 05/01/21 08:07 Albumin/Globulin Ratio 0.5 (1.1-1.8) L 05/01/21 08:07 Amylase 21 U/L (25-115) L 05/01/21 08:07 Lipase 17 U/L (73-393) L 05/01/21 08:07 Procalcitonin 1.29 ng/mL (<0.050) H 05/01/21 08:07 Urine RBC Cancelled 05/01/21 07:48 Urine WBC Cancelled 05/01/21 07:48 Ur Squamous Epith Cells Cancelled 05/01/21 07:48 Ur Urothelial Cells Cancelled 05/01/21 07:48 Calcium Oxalate Crystal Cancelled 05/01/21 07:48 Uric Acid Crystals Cancelled 05/01/21 07:48 Triple Phos Crystals Cancelled 05/01/21 07:48 Other Crystals Cancelled 05/01/21 07:48 Amorphous Sediment Cancelled 05/01/21 07:48 Glitter Cells Cancelled 05/01/21 07:48 Urine Bacteria Cancelled 05/01/21 07:48 Hyaline Casts Cancelled 05/01/21 07:48 Fine Granular Casts Cancelled 05/01/21 07:48 Coarse Granular Casts Cancelled 05/01/21 07:48 Waxy Casts Cancelled 05/01/21 07:48 RBC Casts Cancelled 05/01/21 07:48 WBC Casts Cancelled 05/01/21 07:48 Urine Mucus Cancelled 05/01/21 07:48 Urine Other Cancelled 05/01/21 07:48 Urine Trichomonas Cancelled 05/01/21 07:48 Urine Yeast Cancelled 05/01/21 07:48 Ur Yeast w Hyphae Cancelled 05/01/21 07:48 Urine Yeast (Budding) Cancelled 05/01/21 07:48 Urine Sperm Cancelled 05/01/21 07:48 Urine Culture Reflexed Cancelled 05/01/21 07:48 Urine Total Volume Cancelled 05/01/21 07:48 SARS-CoV-2 RNA (RT-PCR) Negative (NEGATIVE) 05/01/21 09:30 Smear Scan Ok (OK) 05/01/21 08:07 Microbiology Data (last 24 hrs): 05/01/21 08:45 Blood - Blood Aerobic Blood Culture - Final Staph Epidermidis 05/01/21 08:45 Blood - Blood Blood Culture Gram Stain - Final 05/01/21 08:45 Blood - Blood Anaerobic Blood Culture - Final Staph Epidermidis 05/01/21 08:45 Blood - Blood Gram Stain - Final 05/01/21 09:41 Wound - Left Chin Gram Stain - Final 05/01/21 09:41 Wound - Left Chin Culture & Sensitivity - Final Pseudomonas Aeruginosa Enterobacter Cloacae Assessment And Plan - Plan Antibiotics: Vancomycin Start: 05/02 stop: -- ceftazidime start: 05/02 stop: -- Assessment: -right lower extremity wound status post right lxqfq-[id number]-[id number] amputation performed on 05/03 -left lower extremity wound extending from knee to ankle on the lateral aspect of chavez. -history of femoral-popliteal artery bypass graft -diabetes mellitus type 2 -chronic anemia -muscle wasting syndromes/protein caloric malnutrition -CKD stage 3 Plan: -AKA performed on 05/03. Wound care per surgery team. WBC elevated this morning, likely reactive. -left lower extremity wound: Etiology likely a mix of the venous/arterial disease. Apply Medihoney and wrap with kerlix qMWF. Wound cultures performed on 05/01 grew multi-drug resistant Pseudomonas aeruginosa and Enterobacter. Pseudomonas sensitive to ceftazidime and Enterobacter intermittent to ceftazidime, continue current treatment. Wound culture likely contamination. -blood cultures taken on 05/01: 2/4 bottles grew Staph epi. Likely contamination, however is covered with current antibiotic. -continue broad-spectrum IV antibiotic coverage with vancomycin and ceftazidime. Vancomycin trough goal of 10-15. Continue monitor renal function closely. -medical management per primary team -continue monitor CBC and BMP -continue to monitor for signs of infection Plan of care discussed with Dr. Evangelista. Thank you for consultation
[2021-05-04] MEDS: VANCOMYCIN 1.25 GM in NA CHLORIDE 0.9% 250 ML IVPB SCH (14:00)
[2021-05-04] MEDS: MEDIHONEY 44 ML TOPICAL TUBE TOP SCH (14:16)
[2021-05-04] MEDS: ALPRAZOLAM 1 MG TABLET PO PRN (22:56)
[2021-05-05] MEDS: HEPARIN 5000 UNIT/ML 1 ML VIAL SQ SCH ×3 (01:37→16:25)
[2021-05-05] MEDS: CEFTAZIDIME 1 GM in NA CHLORIDE 0.9% 50 ML IV SCH ×2 (01:37→08:15)
[2021-05-05 06:49] LABS: Absolute Lymphocytes (CBC) 1.6 K/uL (0.7-4.9); Basophils % 0.4 % (0-1.3); Hematocrit 21.9 % (39.6-49.0); Lymphocytes % 14.7 % (15.3-44.8); MPV 7.9 fL (7.6-11.3); RBC Red Blood Cell Count 2.39 M/uL (4.33-5.43)
[2021-05-05 07:02] LABS: ALT/SGPT 19 U/L (12-78); AST/SGOT 13 U/L (15-37); Albumin 1.8 g/dL (3.4-5.0); Alkaline Phosphatase 130 U/L (45-117); BUN Blood Urea Nitrogen 22 mg/dL (7-18); Bicarbonate 28 mmol/L (21-32); Bilirubin Total 0.4 mg/dL (0.2-1.0); Glucose Level 127 mg/dL (74-106); Potassium 3.2 mmol/L (3.5-5.1); Protein, Total 5.5 g/dL (6.4-8.2); Sodium Level 143 mmol/L (136-145)
[2021-05-05] MEDS: INSULIN -REGULAR HUMAN 50 UNIT/0.5 ML ML SQ SCH ×4 (07:30→21:00)
[2021-05-05] MEDS: POTASSIUM 25 MEQ EFFERV TAB PO SCH (08:10)
[2021-05-05] MEDS: OXYCODONE *CR* 20 MG TAB PO PRN ×2 (08:11→16:26)
[2021-05-05] MEDS: METOPROLOL XL 25 MG TAB PO SCH (08:12)
--- NOTE | 2021-05-05 08:12 | EKG ---
Test Date: 2021-05-04 Test Time: 10:27:19 Digital Marketing Consultant: MANDY MEASUREMENT RESULTS: Intervals: Rate: 103 [place]: QRSD: 142 QT: 382 QTc: 500 [place]: P: [place]: QRS: -73 T: 12 INTERPRETIVE STATEMENTS: Atrial fibrillation with rapid ventricular response Left axis deviation Right bundle branch block Abnormal ECG Compared to ECG 05/01/2021 08:50:07 No significant changes Electronically Signed On 05-05-21 08:09:46 CDT by Jay Packer
--- NOTE | 2021-05-05 08:12 | EKG ---
Test Date: 2021-05-04 Test Time: 10:33:48 Remote Pilot Operator: MANDY MEASUREMENT RESULTS: Intervals: Rate: 0 [place]: QRSD: 0 QT: 0 QTc: 0 [place]: P: [place]: QRS: 0 T: 0 INTERPRETIVE STATEMENTS: No QRS complexes found, no ECG analysis possible Compared to ECG 05/04/2021 10:27:19 Atrial fibrillation no longer present Left-axis deviation no longer present Right bundle-branch block no longer present Electronically Signed On 05-05-21 08:09:45 CDT by Jay Packer
[2021-05-05] MEDS: GLUCERNA SHAKE 237 ML CAN PO SCH ×3 (08:15→21:15)
[2021-05-05] MEDS: JUVEN PACKET PO SCH ×2 (08:15→21:14)
[2021-05-05] MEDS: MEDIHONEY 44 ML TOPICAL TUBE TOP SCH (08:15)
--- NOTE | 2021-05-05 14:52 | P.PN ---
Subjective Date of Service: 05/05/21 Chief Complaint: Nonhealing lower extremity wounds Patient seen examined at bedside, WBC down trending. Review of Systems 10-point ROS is otherwise unremarkable Physical Examination - Vital Signs Temperature: 97.9 F Blood Pressure: 125/45 Pulse: 112 Respirations: 18 Pulse Ox (%): 97 - Studies Laboratory Last Values WBC 10.60 K/uL (4.3-10.9) 05/01/21 08:07 RBC 3.09 M/uL (4.33-5.43) L 05/01/21 08:07 Hgb 9.5 g/dL (13.6-17.9) L 05/01/21 08:07 Hct 28.5 % (39.6-49.0) L 05/01/21 08:07 MCV 92.1 fL (80-100) 05/01/21 08:07 MCH 30.6 pg (27.0-35.0) 05/01/21 08:07 MCHC 33.2 g/dL (32.0-36.0) 05/01/21 08:07 RDW 14.7 % (12.1-15.2) 05/01/21 08:07 Plt Count 218 K/uL (152-406) 05/01/21 08:07 MPV 8.9 fL (7.6-11.3) 05/01/21 08:07 Neutrophils % 76.2 % (41.7-73.7) H 05/01/21 08:07 Lymphocytes % 14.0 % (15.3-44.8) L 05/01/21 08:07 Monocytes % 8.0 % (3.3-12.3) 05/01/21 08:07 Eosinophils % 0.9 % (0-4.4) 05/01/21 08:07 Basophils % 0.9 % (0-1.3) 05/01/21 08:07 Absolute Neutrophils 8.1 K/uL (1.8-8.0) H 05/01/21 08:07 Absolute Lymphocytes 1.5 K/uL (0.7-4.9) 05/01/21 08:07 Absolute Monocytes 0.8 K/uL (0.1-1.3) 05/01/21 08:07 Absolute Eosinophils 0.1 K/uL (0-0.5) 05/01/21 08:07 Absolute Basophils 0.1 K/uL (0-0.5) 05/01/21 08:07 Platelet Estimate Adeq 05/01/21 08:07 Clumped Platelets Few present 05/01/21 08:07 Morphology Comment Not seen (NOT SEEN) 05/01/21 08:07 PT 19.7 SECONDS (9.5-12.5) H 05/01/21 08:07 INR 1.70 05/01/21 08:07 APTT 26.4 SECONDS (24.3-36.9) 05/01/21 08:07 Sodium 140 mmol/L (136-145) 05/01/21 08:07 Potassium 4.3 mmol/L (3.5-5.1) 05/01/21 08:07 Chloride 105 mmol/L (98-107) 05/01/21 08:07 Carbon Dioxide 33 mmol/L (21-32) H 05/01/21 08:07 BUN 51 mg/dL (7-18) H 05/01/21 08:07 Creatinine 1.46 mg/dL (0.55-1.3) H 05/01/21 08:07 Estimated GFR 46 mL/min (=/>90) L 05/01/21 08:07 Glucose 165 mg/dL (74-106) H 05/01/21 08:07 Lactic Acid 1.2 mmol/L (0.4-2.0) 05/01/21 08:07 Calcium 9.5 mg/dL (8.5-10.1) 05/01/21 08:07 Total Bilirubin 0.6 mg/dL (0.2-1.0) 05/01/21 08:07 Direct Bilirubin 0.4 mg/dL (0-0.2) H 05/01/21 08:07 AST 27 U/L (15-37) 05/01/21 08:07 ALT 24 U/L (12-78) 05/01/21 08:07 Alkaline Phosphatase 116 U/L (45-117) 05/01/21 08:07 Creatine Kinase 93 U/L (39-308) 05/01/21 08:07 CK-MB (CK-2) < 1.0 ng/mL (1.0-3.6) L 05/01/21 08:07 Rapid Troponin I 0.03 ng/mL (0.0-0.045) 05/01/21 08:07 Serum Total Protein 7.5 g/dL (6.4-8.2) 05/01/21 08:07 Albumin 2.4 g/dL (3.4-5.0) L 05/01/21 08:07 Globulin 5.1 g/dL (2.3-3.5) H 05/01/21 08:07 Albumin/Globulin Ratio 0.5 (1.1-1.8) L 05/01/21 08:07 Amylase 21 U/L (25-115) L 05/01/21 08:07 Lipase 17 U/L (73-393) L 05/01/21 08:07 Procalcitonin 1.29 ng/mL (<0.050) H 05/01/21 08:07 Urine RBC Cancelled 05/01/21 07:48 Urine WBC Cancelled 05/01/21 07:48 Ur Squamous Epith Cells Cancelled 05/01/21 07:48 Ur Urothelial Cells Cancelled 05/01/21 07:48 Calcium Oxalate Crystal Cancelled 05/01/21 07:48 Uric Acid Crystals Cancelled 05/01/21 07:48 Triple Phos Crystals Cancelled 05/01/21 07:48 Other Crystals Cancelled 05/01/21 07:48 Amorphous Sediment Cancelled 05/01/21 07:48 Glitter Cells Cancelled 05/01/21 07:48 Urine Bacteria Cancelled 05/01/21 07:48 Hyaline Casts Cancelled 05/01/21 07:48 Fine Granular Casts Cancelled 05/01/21 07:48 Coarse Granular Casts Cancelled 05/01/21 07:48 Waxy Casts Cancelled 05/01/21 07:48 RBC Casts Cancelled 05/01/21 07:48 WBC Casts Cancelled 05/01/21 07:48 Urine Mucus Cancelled 05/01/21 07:48 Urine Other Cancelled 05/01/21 07:48 Urine Trichomonas Cancelled 05/01/21 07:48 Urine Yeast Cancelled 05/01/21 07:48 Ur Yeast w Hyphae Cancelled 05/01/21 07:48 Urine Yeast (Budding) Cancelled 05/01/21 07:48 Urine Sperm Cancelled 05/01/21 07:48 Urine Culture Reflexed Cancelled 05/01/21 07:48 Urine Total Volume Cancelled 05/01/21 07:48 SARS-CoV-2 RNA (RT-PCR) Negative (NEGATIVE) 05/01/21 09:30 Smear Scan Ok (OK) 05/01/21 08:07 Assessment And Plan - Plan Antibiotics: Vancomycin Start: 05/02 stop: -- ceftazidime start: 05/02 stop: -- Assessment: -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 -history of femoral-popliteal artery bypass graft -diabetes mellitus type 2 -chronic anemia -muscle wasting syndromes/protein caloric malnutrition -CKD stage 3 Plan: -AKA performed on 05/03. Wound care per surgery team. -left lower extremity wound: Etiology likely a mix of the venous/arterial disease. Apply Medihoney and wrap with kerlix qMWF. Wound cultures performed on 05/01 grew multi-drug resistant Pseudomonas aeruginosa and Enterobacter. Pseudomonas sensitive to ceftazidime and Enterobacter intermittent to ceftazidime, continue current treatment. -blood cultures taken on 05/01: 2/4 bottles grew Staph epi. Likely contamination, however is covered with current antibiotic. -continue broad-spectrum IV antibiotic coverage with vancomycin and ceftazidime. Vancomycin trough goal of 10-15. Continue monitor renal function closely. -for discharge: Patient can be sent home on oral antibiotic therapy for 2 weeks duration. Recommend cut and then the SFA an MRI SA cover itch, can place patient on an doxycycline or clindamycin. Wound care orders for discharge: On left leg apply SilvaSorb and cover with foam. Right residual limb: Wound care orders per surgical team. -medical management per primary team -continue monitor CBC and BMP -continue to monitor for signs of infection Plan of care discussed with Dr. Evangelista. Thank you for consultation
[2021-05-05] MEDS: CEFTAZIDIME 1 GM in NA CHLORIDE 0.9% 100 ML IV SCH (16:20)
[2021-05-05] MEDS: NA CHLORIDE 0.9% 1,000 ML IV SCH (16:25)
--- NOTE | 2021-05-05 17:28 | P.PN ---
Subjective Date of Service: 05/05/21 Chief Complaint: Nonhealing lower extremity wounds Subjective: Improving (pain seems overall improved slightly, with some R hand swelling today. minimal appetite. afib labile) Review of Systems 10-point ROS is otherwise unremarkable Physical Examination - Vital Signs Temperature: 97.9 F Blood Pressure: 125/45 Pulse: 112 Respirations: 18 Pulse Ox (%): 97 Assessment & Plan Physician Review Additional Text: Physical Exam General: awake, in discomfort, cachectic HEENT: PERRL, anicteric sclera, normal conjunctiva Respiratory: Clear to auscultation bilaterally, poor inspiratory effort Cardiovascular: irregularly irregular rhythm, HR:110, no edema Gastrointestinal: Soft, Non-distended, non-tender Integumentary: s/p R BKA, surgical dressing c/d/i, LLE: eschar noted at superior margin of wound, healthier/pink tissue inferiorly. L toes with eschar Problem List open wound/ necrosis of RLE, now s/p R AKA (05/03) Peripheral vascular disease h/o Femoral-popliteal artery bypass graft Diabetes mellitus, type 2; non-insulin dependent acute on Chronic Anemia Chronic kidney disease, stage 3 Chronic afib, on eliquis continue broad-spectrum Abx - vanc & ceftaz blood cultures likely contaminant, wound culture growing MDR bacteria, ID consulted - will discuss if oral option - as patient and adamant they would want to go home General surgery consulted. Dr. Ortiz - s/p R AKA on 05/03 Cardiology consulted for pre-op clearance/optimization, pt with negative cardiac stress test, now with afib with RVR, increase metoprolol, pain control Pain management - on fentanyl PRN, home oxycontin - takes 80mg TID. seems more comfortable Local wound care on LLE Insulin sliding scale for glucose management. Hold Eliquis due to blood loss transfuse 2u PRBC, pt expected to have more drop after surgery and is cardiac patient with afib and symptomatic Dispo: anticipate hospitalization > 48hrs, s/p amputation, pain control, antibiotics, will discuss further with general surgery ID recommends LTAC for LLE wound care, antibiotics, PT and patient prefer to go home Time Spent Managing Pts Care (In Minutes): 40
--- NOTE | 2021-05-05 19:10 | OP ---
Date of Procedure: 05/05/2021 Surgeon: Reji Ortiz MD [employer] Paralegal: Karma Messina. Preoperative Diagnosis: Right leg gangrene. Postoperative Diagnosis: Right leg gangrene. Procedure: Right above-knee amputation. Estimated Blood Loss: Less than 100 disease. Specimen: Leg. Finding: Gangrene of the lower leg. Anesthesia: Spinal. Complications: None. Drains: GARRICK #10. Indications: This is a case of an 81-year-old patient with long-standing ulcerations of bilateral lo wer extremity. Right side is foul smelling with bone tendon exposed starting the entire leg area, in cluded the foot. The patient was diagnosed with gangrene in the past. We have been trying for weeks trying to convince him to address the issue since the patient may develop . Finally he de cided for above knee amputation. The benefits, alternatives, and risks were fully explained, which i nclude, but not limited to infection, bleeding, damage to adjacent structures, anesthesia complicatio n, and failure of a flap, VT and even . He also understands this may not relieve the symptoms. He might need more than one surgical intervention. He understood, signed a consent. The is aw are and family members. He wants to keep fighting on the left leg and will be helping him with that, but the right side is just beyond repair. Procedure In Detail: The patient was brought to the operating room, placed in supine position. Anes thesia was done without complication. A time-out was called. The right lower extremity was prepped and draped in sterile fashion. An anterior and posterior skin flap was carefully outlined with a mar cesar pen. The incision was then made using an 11 blade until fascia was identified. Veins were iden tified, ligated. The muscle groups of the anterior medial thigh were divided with electrocautery. N eurovascular bundles were identified in the medial aspect of the thigh including popliteal arteries a nd veins and they were ligated with 0 silk. Sciatic nerve was also ligated using the same technique. The posterior thigh muscles were then divided with Bovie cauterizer. After that, the periosteum of the bone was carefully incised and elevated to approximately 5 cm of the femur. The femur was divid ed with the help of a Gigli saw. The proximal end of the transected femur was then smoothed out with a file. After irrigation, we proceeded then to confirm the hemostasis. Bone wax was used for the b one. We proceeded to put the fascia of the thigh muscles all together and closed with #1 Vicryl. A GARRICK drain was placed in that region, secured in place with 3-0 nylon, and then the skin was approximat ed with ismael and covered with sterile dressings. The patient tolerated the procedure well. Spong e count and instrument counts correct. The patient was sent to Recovery in stable condition. JAMA/JEFERSON Voice ID: [id number] Report ID: [id number]
[2021-05-05] MEDS: VANCOMYCIN 1.25 GM in NA CHLORIDE 0.9% 250 ML IVPB SCH (19:30)
[2021-05-05] MEDS ORDERED: NA CHLORIDE 0.9% 250 ML ONE (22:21)
[2021-05-06] MEDS: CEFTAZIDIME 1 GM in NA CHLORIDE 0.9% 100 ML IV SCH ×2 (01:07→09:32)
[2021-05-06] MEDS: HEPARIN 5000 UNIT/ML 1 ML VIAL SQ SCH ×3 (01:08→17:00)
[2021-05-06] MEDS ORDERED: POLYETHYL GLY 3350 17 GM/DOSE PO ONE ×2 (01:53→11:00)
[2021-05-06] MEDS: OXYCODONE *CR* 20 MG TAB PO PRN ×3 (02:24→17:00)
[2021-05-06 04:27] LABS: Absolute Lymphocytes (CBC) 1.7 K/uL (0.7-4.9); Basophils % 0.6 % (0-1.3); Hematocrit 29.4 % (39.6-49.0); Lymphocytes % 19.5 % (15.3-44.8); MPV 8.1 fL (7.6-11.3); RBC Red Blood Cell Count 3.19 M/uL (4.33-5.43)
[2021-05-06 04:40] LABS: ALT/SGPT 20 U/L (12-78); AST/SGOT 22 U/L (15-37); Albumin 1.8 g/dL (3.4-5.0); Alkaline Phosphatase 142 U/L (45-117); BUN Blood Urea Nitrogen 23 mg/dL (7-18); Bicarbonate 28 mmol/L (21-32); Bilirubin Total 0.5 mg/dL (0.2-1.0); Glucose Level 177 mg/dL (74-106); Magnesium 1.8 mg/dL (1.8-2.4); Potassium 3.5 mmol/L (3.5-5.1); Protein, Total 5.9 g/dL (6.4-8.2); Sodium Level 143 mmol/L (136-145)
[2021-05-06] MEDS ORDERED: MAGNESIUM SULFATE 1 gm IVPB 1 GM/100 ML BAG IV ONE (06:00)
[2021-05-06] MEDS: INSULIN -REGULAR HUMAN 50 UNIT/0.5 ML ML SQ SCH ×4 (07:30→20:44)
[2021-05-06] MEDS ORDERED: METOPROLOL XL 25 MG TAB PO SCH (09:00)
[2021-05-06] MEDS: MEDIHONEY 44 ML TOPICAL TUBE TOP SCH (09:00)
[2021-05-06] MEDS: BISACODYL 10 MG RECTAL SUPP PR ONE ×2 (09:00→17:00)
[2021-05-06] MEDS: DOCUSATE NA 100 MG CAP PO SCH ×3 (09:32→20:46)
[2021-05-06] MEDS: POTASSIUM 25 MEQ EFFERV TAB PO SCH (09:32)
[2021-05-06] MEDS: GLUCERNA SHAKE 237 ML CAN PO SCH ×3 (09:34→20:43)
[2021-05-06] MEDS: JUVEN PACKET PO SCH ×2 (09:34→20:43)
[2021-05-06 11:38] VITALS: BMI 25.7
--- NOTE | 2021-05-06 12:28 | P.PN ---
Subjective Date of Service: 05/06/21 Chief Complaint: Nonhealing lower extremity wounds Subjective: Improving (more comfortable, still with intermittent pain, up to 8- 9/10 at times - at r stump and L heel no BM in 4 days, +flatus yesterday, intermittent nausea) Review of Systems 10-point ROS is otherwise unremarkable Physical Examination - Vital Signs Temperature: 98.1 F Blood Pressure: 123/69 Pulse: 107 Respirations: 18 Pulse Ox (%): 98 - Studies Microbiology Data (last 24 hrs): 05/01/21 08:07 Blood - Blood Aerobic Blood Culture - Final No growth in 5 days. 05/01/21 08:07 Blood - Blood Anaerobic Blood Culture - Final Assessment & Plan Physician Review Additional Text: Physical Exam General: awake, NAD, cachectic HEENT: anicteric sclera, normal conjunctiva Respiratory: Clear to auscultation bilaterally, poor inspiratory effort Cardiovascular: irregularly irregular rhythm, HR:100-110, no edema Gastrointestinal: Soft, Non-distended, non-tender Integumentary: s/p R BKA, surgical dressing c/d/i, LLE: eschar noted at superior margin of wound. L toes with eschar Problem List open wound/ necrosis of RLE, now s/p R AKA (05/03) Peripheral vascular disease h/o Femoral-popliteal artery bypass graft Diabetes mellitus, type 2; non-insulin dependent acute on Chronic Anemia Chronic kidney disease, stage 3 Chronic afib, on eliquis continue broad-spectrum Abx - vanc & ceftaz blood cultures likely contaminant, wound culture growing MDR bacteria, ID consulted - will discuss if oral option - as patient and adamant they would want to go home General surgery consulted. Dr. Ortiz - s/p R AKA on 05/03 Cardiology consulted for pre-op clearance/optimization, pt with negative cardiac stress test, now with afib with RVR, increased metoprolol, pain control Pain management - on fentanyl PRN, home oxycontin - takes 80mg TID. seems more comfortable Local wound care on LLE Insulin sliding scale for glucose management. restart eliquis transfused 1u PRBC, pt expected to have more drop after surgery and is cardiac patient with afib and symptomatic Dispo: anticipate hospitalization > 48hrs, s/p amputation, pain control, antibiotics ID recommends LTAC for LLE wound care, antibiotics, PT and patient prefer to go home with home health Time Spent Managing Pts Care (In Minutes): 35
[2021-05-06] MEDS: NA CHLORIDE 0.9% 1,000 ML IV SCH ×2 (12:40→22:08)
[2021-05-06] MEDS: FENTANYL CITR 100 MCG/2 ML IV PRN ×2 (15:19→20:44)
[2021-05-06] MEDS: ONDANSETRON 4 MG/2 ML VIAL IV PRN (17:00)
[2021-05-06] MEDS: CEFTAZIDIME 1 GM in NA CHLORIDE 0.9% 50 ML IV SCH (17:00)
[2021-05-06] MEDS ORDERED: METOPROLOL TARTRATE 5 MG/5 ML INJ IV STA (21:30)
[2021-05-06] MEDS ORDERED: METOPROLOL TARTRATE 5 MG/5 ML INJ IV ONE ×2 (21:35→21:46)
[2021-05-07] MEDS: HEPARIN 5000 UNIT/ML 1 ML VIAL SQ SCH ×3 (01:10→16:10)
[2021-05-07] MEDS: CEFTAZIDIME 1 GM in NA CHLORIDE 0.9% 50 ML IV SCH ×3 (01:10→16:10)
[2021-05-07] MEDS: OXYCODONE *CR* 20 MG TAB PO PRN ×2 (04:20→13:34)
[2021-05-07] MEDS ORDERED: METOPROLOL TARTRATE 5 MG/5 ML INJ IV STA (04:48)
[2021-05-07] MEDS: METOPROLOL XL 50 MG TAB PO SCH (06:26)
[2021-05-07] MEDS: ALPRAZOLAM 1 MG TABLET PO PRN ×2 (07:33→17:56)
[2021-05-07 08:34] LABS: Absolute Lymphocytes (CBC) 1.3 K/uL (0.7-4.9); Hematocrit 29.4 % (39.6-49.0); Lymphocytes % 17.8 % (15.3-44.8); MPV 8.2 fL (7.6-11.3); RBC Red Blood Cell Count 3.17 M/uL (4.33-5.43)
[2021-05-07] MEDS: NA CHLORIDE 0.9% 1,000 ML IV SCH ×2 (08:40→15:51)
[2021-05-07] MEDS: MEDIHONEY 44 ML TOPICAL TUBE TOP SCH (09:00)
[2021-05-07] MEDS: POTASSIUM 25 MEQ EFFERV TAB PO SCH (09:31)
[2021-05-07] MEDS: DOCUSATE NA 100 MG CAP PO SCH ×2 (09:31→19:59)
[2021-05-07] MEDS: INSULIN -REGULAR HUMAN 50 UNIT/0.5 ML ML SQ SCH ×4 (09:34→20:54)
[2021-05-07] MEDS: JUVEN PACKET PO SCH ×2 (09:38→19:59)
[2021-05-07] MEDS: GLUCERNA SHAKE 237 ML CAN PO SCH ×3 (09:38→19:59)
[2021-05-07 10:01] LABS: Magnesium 1.8 mg/dL (1.8-2.4); Potassium 4.1 mmol/L (3.5-5.1)
--- NOTE | 2021-05-07 10:25 | P.PN ---
Subjective Date of Service: 05/07/21 Chief Complaint: Nonhealing lower extremity wounds Subjective: Other (flatus today, some burning sensation with rectum. pain is somewhat improved, still with significant pain with movement. intermittent shooting pains in left foot and R stump) Review of Systems 10-point ROS is otherwise unremarkable Physical Examination - Vital Signs Temperature: 97.8 F Blood Pressure: 106/75 Pulse: 109 Respirations: 18 Pulse Ox (%): 98 - Studies Microbiology Data (last 24 hrs): 05/01/21 08:07 Blood - Blood Aerobic Blood Culture - Final No growth in 5 days. 05/01/21 08:07 Blood - Blood Anaerobic Blood Culture - Final Assessment & Plan Physician Review Additional Text: Physical Exam General: awake, in pain, moderate distress, cachectic HEENT: anicteric sclera, normal conjunctiva Respiratory: Clear to auscultation bilaterally, poor inspiratory effort Cardiovascular: irregularly irregular rhythm, HR:100-120, no edema Gastrointestinal: Soft, Non-distended, non-tender Integumentary: s/p R BKA, surgical dressing c/d/i with GARRICK drain in place, LLE: eschar noted at superior margin of wound. L toes with eschar Problem List open wound/ necrosis of RLE, now s/p R AKA (05/03) Peripheral vascular disease h/o Femoral-popliteal artery bypass graft Diabetes mellitus, type 2; non-insulin dependent acute on Chronic Anemia Chronic kidney disease, stage 3 Chronic afib, on eliquis continue broad-spectrum Abx - vanc & ceftaz blood cultures likely contaminant, wound culture growing MDR bacteria, ID consul shannen -potential oral option - as patient and adamant they would want to go home General surgery consulted. Dr. Ortiz - s/p R AKA on 05/03 Cardiology consulted for pre-op clearance/optimization, pt with negative cardiac stress test, now with afib with RVR, increased metoprolol, pain control Pain management - on fentanyl PRN, home oxycontin - takes 80mg TID. patient admits to trying to "tough it out" and not asking for pain medication, discussed pain needs to be controlled, he is in obvious discomfort and contributing to his tachycardia Local wound care on LLE Insulin sliding scale for glucose management. restart eliquis transfused 1u PRBC, pt expected to have more drop after surgery and is cardiac patient with afib and symptomatic Dispo: anticipate hospitalization > 48hrs, s/p amputation, pain control, antibiotics ID recommends LTAC for LLE wound care, antibiotics, PT and patient insist on going home with home health, refuses hospice, and does not want SNF/LTAC Time Spent Managing Pts Care (In Minutes): 35
--- NOTE | 2021-05-07 10:30 | PN ---
Date of Progress Note: 05/05/2021 Mr. Baptiste has had chronic atrial fibrillation. His heart rate had started to go up post amputatio n. He had a normal echo and normal stress test, hypertension, dyslipidemia. He is actually feeling well, but his heart rate remained in the 110 to 120 with atrial fibrillation. I would increase his b eta-nini dose again. He can get IV beta-nini if his heart rate goes more than 120. I would gi ve him 5 mg IV push every 5 minutes x3 doses as his heart rate goes up, but again he should continue his Eliquis, continue his beta-nini. No plan for cardioversion. He is asymptomatic with it. I w ill sign off his case for now. I will be happy to see him in the office as an outpatient. BIJAL/JEFERSON Voice ID: [id number] Report ID: [id number]
--- NOTE | 2021-05-07 10:30 | PN ---
Date of Progress Note: 05/04/2021 Mr. Baptiste had undergone right [id number] amputation by Dr. Ortiz on 05/03/2021. He is in c ardiac chronic atrial fibrillation without any cardiac symptoms. He has hypertension, dyslipidemia, peripheral arterial disease, CAD. Has had normal stress test, normal echo. His atrial fibrillation today is slightly higher rate. He is not having any symptoms with it. He is on metoprolol 50 mg liv ly. He normally takes Eliquis at home. I think, we can increase his metoprolol to control his rate and resume his Eliquis whenever it is okay with Dr. Ortiz. I have no intention of trying to conve rt Mr. Baptiste to a normal rhythm. We will control his rate with higher dose of the metoprolol. BIJAL/JEFERSON Voice ID: [id number] Report ID: [id number]
[2021-05-07] MEDS: FENTANYL CITR 100 MCG/2 ML IV PRN ×3 (10:41→19:58)
[2021-05-07] MEDS: VANCOMYCIN 1.25 GM in NA CHLORIDE 0.9% 250 ML IVPB SCH (10:43)
[2021-05-07] MEDS: ACETAMINOPHEN 500 MG TAB PO PRN (17:55)
[2021-05-08] MEDS: CEFTAZIDIME 1 GM in NA CHLORIDE 0.9% 50 ML IV SCH ×3 (00:51→18:08)
[2021-05-08] MEDS: HEPARIN 5000 UNIT/ML 1 ML VIAL SQ SCH ×3 (00:51→17:25)
[2021-05-08] MEDS: FENTANYL CITR 100 MCG/2 ML IV PRN ×2 (04:35→10:26)
[2021-05-08] MEDS: METOPROLOL XL 50 MG TAB PO SCH (05:19)
[2021-05-08] MEDS: NA CHLORIDE 0.9% 1,000 ML IV SCH (05:19)
[2021-05-08] MEDS: OXYCODONE *CR* 20 MG TAB PO PRN ×2 (06:12→14:06)
[2021-05-08] MEDS: INSULIN -REGULAR HUMAN 50 UNIT/0.5 ML ML SQ SCH ×4 (07:30→20:26)
[2021-05-08] MEDS: JUVEN PACKET PO SCH ×3 (09:00→20:26)
[2021-05-08] MEDS: MEDIHONEY 44 ML TOPICAL TUBE TOP SCH (09:00)
[2021-05-08] MEDS: GLUCERNA SHAKE 237 ML CAN PO SCH ×3 (09:00→20:19)
[2021-05-08 09:22] LABS: Absolute Lymphocytes (CBC) 1.9 K/uL (0.7-4.9); Hematocrit 28.9 % (39.6-49.0); Lymphocytes % 23.9 % (15.3-44.8); MPV 8.5 fL (7.6-11.3); RBC Red Blood Cell Count 3.13 M/uL (4.33-5.43)
[2021-05-08 09:46] LABS: ALT/SGPT 42 U/L (12-78); AST/SGOT 23 U/L (15-37); Albumin 1.8 g/dL (3.4-5.0); Alkaline Phosphatase 240 U/L (45-117); BUN Blood Urea Nitrogen 21 mg/dL (7-18); Bicarbonate 29 mmol/L (21-32); Bilirubin Total 0.5 mg/dL (0.2-1.0); Glucose Level 134 mg/dL (74-106); Magnesium 1.7 mg/dL (1.8-2.4); Potassium 4.2 mmol/L (3.5-5.1); Protein, Total 5.6 g/dL (6.4-8.2); Sodium Level 140 mmol/L (136-145)
--- NOTE | 2021-05-08 09:48 | P.PN ---
Subjective Date of Service: 05/08/21 Chief Complaint: Nonhealing lower extremity wounds Subjective: Other (continues with pain - L heel and R AKA site - intermittent. Also with lower back pain. Pt has refused to be repositioned/turned. Every day since admission has been stating he doesn't want to continue this and wants to ) Review of Systems 10-point ROS is otherwise unremarkable Physical Examination - Vital Signs Temperature: 98.1 F Blood Pressure: 109/65 Pulse: 96 Respirations: 16 Pulse Ox (%): 99 Assessment & Plan Physician Review Additional Text: Physical Exam General: awake, in pain, cachectic HEENT: anicteric sclera, normal conjunctiva Respiratory: Clear to auscultation bilaterally, poor inspiratory effort Cardiovascular: irregularly irregular rhythm, HR:100-110, no edema Gastrointestinal: Soft, Non-distended, non-tender Integumentary: s/p R BKA, surgical dressing c/d/i with GARRICK drain in place, LLE: eschar noted at superior margin of wound. L toes with eschar Problem List open wound/ necrosis of RLE, now s/p R AKA (05/03) Peripheral vascular disease h/o Femoral-popliteal artery bypass graft Diabetes mellitus, type 2; non-insulin dependent acute on Chronic Anemia Chronic kidney disease, stage 3 Chronic afib, on eliquis continue broad-spectrum Abx - vanc & ceftaz blood cultures likely contaminant, wound culture growing MDR bacteria, ID consulted -potential oral option - as patient and adamant they would want to go home General surgery consulted. Dr. Ortiz - s/p R AKA on 05/03 Cardiology consulted for pre-op clearance/optimization, pt with negative cardiac stress test, now with afib with RVR, increased metoprolol, pain control Pain management - on fentanyl PRN, home oxycontin - takes 80mg TID. Patient has not been taking all 3 patient admits to trying to "tough it out" and not asking for pain medication, discussed pain needs to be controlled, he is in obvious discomfort and contributing to his tachycardia Local wound care on LLE Insulin sliding scale for glucose management. restart eliquis transfused 1u PRBC Dispo: anticipate hospitalization: 24-48hrs, s/p amputation, pain control, antibiotics ID recommends LTAC for LLE wound care, antibiotics, PT insists on going home with home health, refuses hospice, and does not want SNF/LTAC patient has stated every day he doesn't want to continue going through all this, stated he was unsure of amputation. After discussions with his , he then states he wants to continue. constantly telling him he needs to continue with everything Today, patient states he has had enough, he is tired of going through "all of this", he "gives up", he wants to discuss further hospice nurse As he was saying this, his was telling him, "no you don't", "why would you go through with the amputation just to give up now, that's stupid". I explained this would be the patient's choice, if he feels he has gone through enough pain and would like to pursue hospice, he should be allowed to go that route. The agreed, but also stating they tried hospice before for one day and he refused / revoked it. On prior conversation, the had stated she did not like home hospice and cancelled it herself. I stated, at the very least, if he is entertaining this idea again, we can consult the hospice nurse to come in for further evaluation and answer any questions that the patient may have. Patient was in agreement. stated "okay". Time Spent Managing Pts Care (In Minutes): 40
[2021-05-08] MEDS: DOCUSATE NA 100 MG CAP PO SCH ×2 (10:25→20:18)
[2021-05-08] MEDS: POTASSIUM 25 MEQ EFFERV TAB PO SCH (10:26)
--- NOTE | 2021-05-08 13:02 | P.PN ---
Subjective Date of Service: 05/08/21 Chief Complaint: Nonhealing lower extremity wounds Patient seen examined at bedside, patient states he is not feeling well today. thinks patient is feeling slightly depressed. is eager to get the patient home. Review of Systems 10-point ROS is otherwise unremarkable Physical Examination - Vital Signs Temperature: 98.1 F Blood Pressure: 109/65 Pulse: 96 Respirations: 16 Pulse Ox (%): 99 - Studies Laboratory Last Values WBC 10.60 K/uL (4.3-10.9) 05/01/21 08:07 RBC 3.09 M/uL (4.33-5.43) L 05/01/21 08:07 Hgb 9.5 g/dL (13.6-17.9) L 05/01/21 08:07 Hct 28.5 % (39.6-49.0) L 05/01/21 08:07 MCV 92.1 fL (80-100) 05/01/21 08:07 MCH 30.6 pg (27.0-35.0) 05/01/21 08:07 MCHC 33.2 g/dL (32.0-36.0) 05/01/21 08:07 RDW 14.7 % (12.1-15.2) 05/01/21 08:07 Plt Count 218 K/uL (152-406) 05/01/21 08:07 MPV 8.9 fL (7.6-11.3) 05/01/21 08:07 Neutrophils % 76.2 % (41.7-73.7) H 05/01/21 08:07 Lymphocytes % 14.0 % (15.3-44.8) L 05/01/21 08:07 Monocytes % 8.0 % (3.3-12.3) 05/01/21 08:07 Eosinophils % 0.9 % (0-4.4) 05/01/21 08:07 Basophils % 0.9 % (0-1.3) 05/01/21 08:07 Absolute Neutrophils 8.1 K/uL (1.8-8.0) H 05/01/21 08:07 Absolute Lymphocytes 1.5 K/uL (0.7-4.9) 05/01/21 08:07 Absolute Monocytes 0.8 K/uL (0.1-1.3) 05/01/21 08:07 Absolute Eosinophils 0.1 K/uL (0-0.5) 05/01/21 08:07 Absolute Basophils 0.1 K/uL (0-0.5) 05/01/21 08:07 Platelet Estimate Adeq 05/01/21 08:07 Clumped Platelets Few present 05/01/21 08:07 Morphology Comment Not seen (NOT SEEN) 05/01/21 08:07 PT 19.7 SECONDS (9.5-12.5) H 05/01/21 08:07 INR 1.70 05/01/21 08:07 APTT 26.4 SECONDS (24.3-36.9) 05/01/21 08:07 Sodium 140 mmol/L (136-145) 05/01/21 08:07 Potassium 4.3 mmol/L (3.5-5.1) 05/01/21 08:07 Chloride 105 mmol/L (98-107) 05/01/21 08:07 Carbon Dioxide 33 mmol/L (21-32) H 05/01/21 08:07 BUN 51 mg/dL (7-18) H 05/01/21 08:07 Creatinine 1.46 mg/dL (0.55-1.3) H 05/01/21 08:07 Estimated GFR 46 mL/min (=/>90) L 05/01/21 08:07 Glucose 165 mg/dL (74-106) H 05/01/21 08:07 Lactic Acid 1.2 mmol/L (0.4-2.0) 05/01/21 08:07 Calcium 9.5 mg/dL (8.5-10.1) 05/01/21 08:07 Total Bilirubin 0.6 mg/dL (0.2-1.0) 05/01/21 08:07 Direct Bilirubin 0.4 mg/dL (0-0.2) H 05/01/21 08:07 AST 27 U/L (15-37) 05/01/21 08:07 ALT 24 U/L (12-78) 05/01/21 08:07 Alkaline Phosphatase 116 U/L (45-117) 05/01/21 08:07 Creatine Kinase 93 U/L (39-308) 05/01/21 08:07 CK-MB (CK-2) < 1.0 ng/mL (1.0-3.6) L 05/01/21 08:07 Rapid Troponin I 0.03 ng/mL (0.0-0.045) 05/01/21 08:07 Serum Total Protein 7.5 g/dL (6.4-8.2) 05/01/21 08:07 Albumin 2.4 g/dL (3.4-5.0) L 05/01/21 08:07 Globulin 5.1 g/dL (2.3-3.5) H 05/01/21 08:07 Albumin/Globulin Ratio 0.5 (1.1-1.8) L 05/01/21 08:07 Amylase 21 U/L (25-115) L 05/01/21 08:07 Lipase 17 U/L (73-393) L 05/01/21 08:07 Procalcitonin 1.29 ng/mL (<0.050) H 05/01/21 08:07 Urine RBC Cancelled 05/01/21 07:48 Urine WBC Cancelled 05/01/21 07:48 Ur Squamous Epith Cells Cancelled 05/01/21 07:48 Ur Urothelial Cells Cancelled 05/01/21 07:48 Calcium Oxalate Crystal Cancelled 05/01/21 07:48 Uric Acid Crystals Cancelled 05/01/21 07:48 Triple Phos Crystals Cancelled 05/01/21 07:48 Other Crystals Cancelled 05/01/21 07:48 Amorphous Sediment Cancelled 05/01/21 07:48 Glitter Cells Cancelled 05/01/21 07:48 Urine Bacteria Cancelled 05/01/21 07:48 Hyaline Casts Cancelled 05/01/21 07:48 Fine Granular Casts Cancelled 05/01/21 07:48 Coarse Granular Casts Cancelled 05/01/21 07:48 Waxy Casts Cancelled 05/01/21 07:48 RBC Casts Cancelled 05/01/21 07:48 WBC Casts Cancelled 05/01/21 07:48 Urine Mucus Cancelled 05/01/21 07:48 Urine Other Cancelled 05/01/21 07:48 Urine Trichomonas Cancelled 05/01/21 07:48 Urine Yeast Cancelled 05/01/21 07:48 Ur Yeast w Hyphae Cancelled 05/01/21 07:48 Urine Yeast (Budding) Cancelled 05/01/21 07:48 Urine Sperm Cancelled 05/01/21 07:48 Urine Culture Reflexed Cancelled 05/01/21 07:48 Urine Total Volume Cancelled 05/01/21 07:48 SARS-CoV-2 RNA (RT-PCR) Negative (NEGATIVE) 05/01/21 09:30 Smear Scan Ok (OK) 05/01/21 08:07 Assessment And Plan - Plan Antibiotics: Vancomycin Start: 05/02 stop: -- ceftazidime start: 05/02 stop: -- Assessment: -right lower extremity wound status post right [id number] amputation performed on 05/03 -left lower extremity wound extending from knee to ankle on the lateral aspect of chavez. -history of femoral-popliteal artery bypass graft -diabetes mellitus type 2 -chronic anemia -muscle wasting syndromes/protein caloric malnutrition -CKD stage 3 Plan: -AKA performed on 05/03. Wound care per surgery team. -left lower extremity wound: Etiology likely a mix of the venous/arterial disease. Apply Medihoney and wrap with kerlix qMWF. Wound cultures performed on 05/01 grew multi-drug resistant Pseudomonas aeruginosa and Enterobacter. Pseudomonas sensitive to ceftazidime and Enterobacter intermittent to ceftazidime, continue current treatment. -blood cultures taken on 05/01: 2/4 bottles grew Staph epi. Likely contamination, however is covered with current antibiotic. -continue broad-spectrum IV antibiotic coverage with vancomycin and ceftazidime. Vancomycin trough goal of 10-15. Continue monitor renal function closely. -for discharge: Patient can be sent home on oral antibiotic therapy for 2 weeks duration. Recommend levaqin. Recommend obtaining baseline EKG prior to starting this antibiotic. Wound care orders for discharge: On left leg apply medihoney, cover with ABD pads, wrap with kerlix. Sacral wound: Duoderm. Right residual limb: Wound care orders per surgical team. -medical management per primary team -continue monitor CBC and BMP -continue to monitor for signs of infection Plan of care discussed with Dr. Evangelista. Thank you for consultation
[2021-05-08] MEDS: ALPRAZOLAM 1 MG TABLET PO PRN (17:25)
[2021-05-08] MEDS: VANCOMYCIN 1.25 GM in NA CHLORIDE 0.9% 250 ML IVPB SCH (19:08)
[2021-05-08] MEDS ORDERED: MAGNESIUM SULFATE 1 gm IVPB 1 GM/100 ML BAG IV ONE (19:28)
[2021-05-09] MEDS: HEPARIN 5000 UNIT/ML 1 ML VIAL SQ SCH ×3 (00:06→17:19)
[2021-05-09] MEDS: CEFTAZIDIME 1 GM in NA CHLORIDE 0.9% 50 ML IV SCH ×3 (00:06→17:18)
[2021-05-09] MEDS: METOPROLOL XL 50 MG TAB PO SCH (05:42)
[2021-05-09] MEDS: OXYCODONE *CR* 20 MG TAB PO PRN (06:34)
[2021-05-09] MEDS: INSULIN -REGULAR HUMAN 50 UNIT/0.5 ML ML SQ SCH ×4 (07:30→21:00)
[2021-05-09] MEDS: GLUCERNA SHAKE 237 ML CAN PO SCH ×3 (08:22→21:00)
[2021-05-09] MEDS: JUVEN PACKET PO SCH ×2 (08:22→21:00)
[2021-05-09] MEDS: POTASSIUM 25 MEQ EFFERV TAB PO SCH (08:23)
[2021-05-09] MEDS: DOCUSATE NA 100 MG CAP PO SCH ×2 (08:29→21:00)
[2021-05-09] MEDS: FENTANYL CITR 100 MCG/2 ML IV PRN ×2 (08:50→13:21)
--- NOTE | 2021-05-09 10:47 | P.PN ---
Subjective Date of Service: 05/09/21 Chief Complaint: Nonhealing lower extremity wounds Patient seen examined at bedside, has status is that she and her have agreed in the do not want hospice at this time. Nor do they want to be sent to a extended care facility for ongoing wound care treatment. They are r equesting home health at this time. Review of Systems 10-point ROS is otherwise unremarkable Physical Examination - Vital Signs Temperature: 97.6 F Blood Pressure: 120/59 Pulse: 79 Respirations: 13 Pulse Ox (%): 99 - Studies Laboratory Last Values WBC 10.60 K/uL (4.3-10.9) 05/01/21 08:07 RBC 3.09 M/uL (4.33-5.43) L 05/01/21 08:07 Hgb 9.5 g/dL (13.6-17.9) L 05/01/21 08:07 Hct 28.5 % (39.6-49.0) L 05/01/21 08:07 MCV 92.1 fL (80-100) 05/01/21 08:07 MCH 30.6 pg (27.0-35.0) 05/01/21 08:07 MCHC 33.2 g/dL (32.0-36.0) 05/01/21 08:07 RDW 14.7 % (12.1-15.2) 05/01/21 08:07 Plt Count 218 K/uL (152-406) 05/01/21 08:07 MPV 8.9 fL (7.6-11.3) 05/01/21 08:07 Neutrophils % 76.2 % (41.7-73.7) H 05/01/21 08:07 Lymphocytes % 14.0 % (15.3-44.8) L 05/01/21 08:07 Monocytes % 8.0 % (3.3-12.3) 05/01/21 08:07 Eosinophils % 0.9 % (0-4.4) 05/01/21 08:07 Basophils % 0.9 % (0-1.3) 05/01/21 08:07 Absolute Neutrophils 8.1 K/uL (1.8-8.0) H 05/01/21 08:07 Absolute Lymphocytes 1.5 K/uL (0.7-4.9) 05/01/21 08:07 Absolute Monocytes 0.8 K/uL (0.1-1.3) 05/01/21 08:07 Absolute Eosinophils 0.1 K/uL (0-0.5) 05/01/21 08:07 Absolute Basophils 0.1 K/uL (0-0.5) 05/01/21 08:07 Platelet Estimate Adeq 05/01/21 08:07 Clumped Platelets Few present 05/01/21 08:07 Morphology Comment Not seen (NOT SEEN) 05/01/21 08:07 PT 19.7 SECONDS (9.5-12.5) H 05/01/21 08:07 INR 1.70 05/01/21 08:07 APTT 26.4 SECONDS (24.3-36.9) 05/01/21 08:07 Sodium 140 mmol/L (136-145) 05/01/21 08:07 Potassium 4.3 mmol/L (3.5-5.1) 05/01/21 08:07 Chloride 105 mmol/L (98-107) 05/01/21 08:07 Carbon Dioxide 33 mmol/L (21-32) H 05/01/21 08:07 BUN 51 mg/dL (7-18) H 05/01/21 08:07 Creatinine 1.46 mg/dL (0.55-1.3) H 05/01/21 08:07 Estimated GFR 46 mL/min (=/>90) L 05/01/21 08:07 Glucose 165 mg/dL (74-106) H 05/01/21 08:07 Lactic Acid 1.2 mmol/L (0.4-2.0) 05/01/21 08:07 Calcium 9.5 mg/dL (8.5-10.1) 05/01/21 08:07 Total Bilirubin 0.6 mg/dL (0.2-1.0) 05/01/21 08:07 Direct Bilirubin 0.4 mg/dL (0-0.2) H 05/01/21 08:07 AST 27 U/L (15-37) 05/01/21 08:07 ALT 24 U/L (12-78) 05/01/21 08:07 Alkaline Phosphatase 116 U/L (45-117) 05/01/21 08:07 Creatine Kinase 93 U/L (39-308) 05/01/21 08:07 CK-MB (CK-2) < 1.0 ng/mL (1.0-3.6) L 05/01/21 08:07 Rapid Troponin I 0.03 ng/mL (0.0-0.045) 05/01/21 08:07 Serum Total Protein 7.5 g/dL (6.4-8.2) 05/01/21 08:07 Albumin 2.4 g/dL (3.4-5.0) L 05/01/21 08:07 Globulin 5.1 g/dL (2.3-3.5) H 05/01/21 08:07 Albumin/Globulin Ratio 0.5 (1.1-1.8) L 05/01/21 08:07 Amylase 21 U/L (25-115) L 05/01/21 08:07 Lipase 17 U/L (73-393) L 05/01/21 08:07 Procalcitonin 1.29 ng/mL (<0.050) H 05/01/21 08:07 Urine RBC Cancelled 05/01/21 07:48 Urine WBC Cancelled 05/01/21 07:48 Ur Squamous Epith Cells Cancelled 05/01/21 07:48 Ur Urothelial Cells Cancelled 05/01/21 07:48 Calcium Oxalate Crystal Cancelled 05/01/21 07:48 Uric Acid Crystals Cancelled 05/01/21 07:48 Triple Phos Crystals Cancelled 05/01/21 07:48 Other Crystals Cancelled 05/01/21 07:48 Amorphous Sediment Cancelled 05/01/21 07:48 Glitter Cells Cancelled 05/01/21 07:48 Urine Bacteria Cancelled 05/01/21 07:48 Hyaline Casts Cancelled 05/01/21 07:48 Fine Granular Casts Cancelled 05/01/21 07:48 Coarse Granular Casts Cancelled 05/01/21 07:48 Waxy Casts Cancelled 05/01/21 07:48 RBC Casts Cancelled 05/01/21 07:48 WBC Casts Cancelled 05/01/21 07:48 Urine Mucus Cancelled 05/01/21 07:48 Urine Other Cancelled 05/01/21 07:48 Urine Trichomonas Cancelled 05/01/21 07:48 Urine Yeast Cancelled 05/01/21 07:48 Ur Yeast w Hyphae Cancelled 05/01/21 07:48 Urine Yeast (Budding) Cancelled 05/01/21 07:48 Urine Sperm Cancelled 05/01/21 07:48 Urine Culture Reflexed Cancelled 05/01/21 07:48 Urine Total Volume Cancelled 05/01/21 07:48 SARS-CoV-2 RNA (RT-PCR) Negative (NEGATIVE) 05/01/21 09:30 Smear Scan Ok (OK) 05/01/21 08:07 Assessment And Plan - Plan eneral: Alert, Cachectic HEENT: Atraumatic, Normocephalic Neck: Supple, 2+ carotid pulse no bruit Respiratory: Clear to auscultation bilaterally, Normal air movement Cardiovascular: No edema, Normal pulses, Other (tachy) Capillary refill: <2 Seconds Gastrointestinal: Soft and benign, Non-distended Musculoskeletal: Other (right AKA on 05/03. 1 drain present. ) Integumentary: Other (left PVD wound: extends from knee to ankle on lateral aspect of chavez. 10% of wound shows necrotic tissue, remain is mix of granulation and fibrin tissue) Antibiotics: Vancomycin Start: 05/02 stop: -- ceftazidime start: 05/02 stop: -- Assessment: -right lower extremity wound status post right [id number] amputation performed on 05/03 -left lower extremity wound extending from knee to ankle on the lateral aspect of chavez. -history of femoral-popliteal artery bypass graft -diabetes mellitus type 2 -chronic anemia -muscle wasting syndromes/protein caloric malnutrition -CKD stage 3 Plan: -AKA performed on 05/03. Wound care per surgery team. -left lower extremity wound: Etiology likely a mix of the venous/arterial disease. Wound cultures performed on 05/01 grew multi-drug resistant Pseudomonas aeruginosa and Enterobacter. Pseudomonas sensitive to ceftazidime and Enterobacter intermittent to ceftazidime, continue current treatment. Continue systemic IV antibiotics for duration of hospital stay, Vancomycin trough goal of 10-15. Continue monitor renal function closely. -Patient meme, placing ABD pn be sent home without antibiotics with local wound care. wound care: LLE: Recommend cleaning wound with 1% ascetic acid, then applying Medihoney, and wrapping with Kerlix. Sacral wound: Duoderm. Right residual limb: Wound care orders per surgical team. dressing change: qMWF -blood cultures taken on 05/01: 2/4 bottles grew Staph epi. Likely contamination, however is covered with current antibiotic. -medical management per primary team -continue monitor CBC and BMP -continue to monitor for signs of infection Plan of care discussed with Dr. Evangelista. Thank you for consultation
[2021-05-09] MEDS: MEDIHONEY 44 ML TOPICAL TUBE TOP SCH (14:25)
[2021-05-09] MEDS: ALPRAZOLAM 1 MG TABLET PO PRN (15:34)
--- NOTE | 2021-05-09 18:57 | P.PN ---
Subjective Date of Service: 05/09/21 Chief Complaint: Nonhealing lower extremity wounds Patient complaining of leg pain even at rest. Patient and spouse has been refusing blood work. Physical Examination - Vital Signs Temperature: 97.7 F Blood Pressure: 104/54 Pulse: 80 Respirations: 14 Pulse Ox (%): 100 - Physical Exam General: Alert, In no apparent distress, Other (Awake) HEENT: Mucous membr. moist/pink Neck: JVD not distended Respiratory: Clear to auscultation bilaterally, Normal air movement Cardiovascular: Regular rate/rhythm, Normal S1 S2 Gastrointestinal: Soft and benign, Non-distended, No tenderness Musculoskeletal: Other (Right AKA) Integumentary: Other (Extensive left lower extremity ulcer in dressing.) Neurological: Other (No focal motor deficit.) Assessment And Plan - Current Problems (Diagnosis) (1) Infected wound Current Visit: Yes Status: Acute (2) Peripheral vascular disease Current Visit: Yes Status: Acute (3) Left upper extremity swelling Current Visit: Yes Status: Acute (4) Femoral-popliteal artery bypass graft Current Visit: No Status: Active (5) 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 Current Visit: No Status: Acute (6) Open wnd knee/leg-complicated Current Visit: No Status: Acute (7) Diabetes mellitus Current Visit: No Status: Chronic (8) Anemia Current Visit: Yes Status: Acute (9) Chronic kidney disease, stage 3 Current Visit: Yes Status: Acute Physician Review Additional Text: Physical Exam General: awake, in pain, cachectic HEENT: anicteric sclera, normal conjunctiva Respiratory: Clear to auscultation bilaterally, poor inspiratory effort Cardiovascular: irregularly irregular rhythm, HR:100-110, no edema Gastrointestinal: Soft, Non-distended, non-tender Integumentary: s/p R BKA, surgical dressing c/d/i with GARRICK drain in place, LLE: eschar noted at superior margin of wound. L toes with eschar Problem List open wound/ necrosis of RLE, now s/p R AKA (05/03) Peripheral vascular disease h/o Femoral-popliteal artery bypass graft Diabetes mellitus, type 2; non-insulin dependent acute on Chronic Anemia due to acute blood loss. Chronic kidney disease, stage 3 Chronic afib, on eliquis continue broad-spectrum Abx - vanc & ceftaz blood cultures likely contaminant, wound culture growing MDR bacteria, ID following an recommending topical antibiotics (Acetic acid) General surgery consulted. Dr. Ortiz - s/p R SARAH on 05/03 Cardiology consulted for pre-op clearance/optimization, pt with negative cardiac stress test, now with afib with RVR, continue metoprolol. Pain management - on fentanyl PRN, continue OxyContin 80 mg t.i.d. Scheduled OxyContin for pain control. Local wound care on LLE. They refused further amputation. Insulin sliding scale for glucose management. Contiue eliquis Status post 1u PRBC transfusion for acute blood loss anemia. Dispo: anticipate hospitalization: 24-48hrs, s/p amputation, pain control, antibiotics ID recommends LTAC for LLE wound care, antibiotics, PT insists on going home with home health, refuses hospice, and does not want SNF/LTAC
[2021-05-09] MEDS: OXYCODONE *CR* 20 MG TAB PO SCH (19:00)
[2021-05-09 21:37] LABS: Absolute Lymphocytes (CBC) 1.9 K/uL (0.7-4.9); Basophils % 1.2 % (0-1.3); Hematocrit 28.5 % (39.6-49.0); Lymphocytes % 24.2 % (15.3-44.8); MPV 8.5 fL (7.6-11.3)
[2021-05-09 21:57] LABS: Albumin 1.8 g/dL (3.4-5.0); Bilirubin Total 0.5 mg/dL (0.2-1.0); Magnesium 1.8 mg/dL (1.8-2.4); Phosphorus 2.9 mg/dL (2.5-4.9); Potassium 4.1 mmol/L (3.5-5.1); Protein, Total 5.5 g/dL (6.4-8.2)
[2021-05-10] MEDS: CEFTAZIDIME 1 GM in NA CHLORIDE 0.9% 50 ML IV SCH ×3 (00:41→17:00)
[2021-05-10] MEDS: HEPARIN 5000 UNIT/ML 1 ML VIAL SQ SCH ×3 (00:42→17:00)
[2021-05-10] MEDS ORDERED: MAGNESIUM SULFATE 1 gm IVPB 1 GM/100 ML BAG IV ONE (01:00)
[2021-05-10] MEDS: OXYCODONE *CR* 20 MG TAB PO SCH ×4 (03:00→18:00)
[2021-05-10] MEDS: METOPROLOL XL 50 MG TAB PO SCH (05:35)
[2021-05-10] MEDS: INSULIN -REGULAR HUMAN 50 UNIT/0.5 ML ML SQ SCH ×4 (07:30→21:00)
[2021-05-10] MEDS: JUVEN PACKET PO SCH ×2 (09:00→21:00)
[2021-05-10] MEDS: GLUCERNA SHAKE 237 ML CAN PO SCH ×3 (09:00→21:00)
[2021-05-10 09:06] LABS: Potassium 4.3 mmol/L (3.5-5.1)
[2021-05-10] MEDS: POTASSIUM 25 MEQ EFFERV TAB PO SCH (10:12)
[2021-05-10] MEDS: DOCUSATE NA 100 MG CAP PO SCH ×2 (10:13→21:02)
[2021-05-10] MEDS: MEDIHONEY 44 ML TOPICAL TUBE TOP SCH (10:14)
--- NOTE | 2021-05-10 11:53 | P.PN ---
Subjective Date of Service: 05/10/21 Chief Complaint: Nonhealing lower extremity wounds Patient seen examined at bedside, no acute events. Review of Systems 10-point ROS is otherwise unremarkable Physical Examination - Vital Signs Temperature: 98.5 F Blood Pressure: 104/59 Pulse: 97 Respirations: 16 Pulse Ox (%): 100 - Studies Laboratory Last Values WBC 10.60 K/uL (4.3-10.9) 05/01/21 08:07 RBC 3.09 M/uL (4.33-5.43) L 05/01/21 08:07 Hgb 9.5 g/dL (13.6-17.9) L 05/01/21 08:07 Hct 28.5 % (39.6-49.0) L 05/01/21 08:07 MCV 92.1 fL (80-100) 05/01/21 08:07 MCH 30.6 pg (27.0-35.0) 05/01/21 08:07 MCHC 33.2 g/dL (32.0-36.0) 05/01/21 08:07 RDW 14.7 % (12.1-15.2) 05/01/21 08:07 Plt Count 218 K/uL (152-406) 05/01/21 08:07 MPV 8.9 fL (7.6-11.3) 05/01/21 08:07 Neutrophils % 76.2 % (41.7-73.7) H 05/01/21 08:07 Lymphocytes % 14.0 % (15.3-44.8) L 05/01/21 08:07 Monocytes % 8.0 % (3.3-12.3) 05/01/21 08:07 Eosinophils % 0.9 % (0-4.4) 05/01/21 08:07 Basophils % 0.9 % (0-1.3) 05/01/21 08:07 Absolute Neutrophils 8.1 K/uL (1.8-8.0) H 05/01/21 08:07 Absolute Lymphocytes 1.5 K/uL (0.7-4.9) 05/01/21 08:07 Absolute Monocytes 0.8 K/uL (0.1-1.3) 05/01/21 08:07 Absolute Eosinophils 0.1 K/uL (0-0.5) 05/01/21 08:07 Absolute Basophils 0.1 K/uL (0-0.5) 05/01/21 08:07 Platelet Estimate Adeq 05/01/21 08:07 Clumped Platelets Few present 05/01/21 08:07 Morphology Comment Not seen (NOT SEEN) 05/01/21 08:07 PT 19.7 SECONDS (9.5-12.5) H 05/01/21 08:07 INR 1.70 05/01/21 08:07 APTT 26.4 SECONDS (24.3-36.9) 05/01/21 08:07 Sodium 140 mmol/L (136-145) 05/01/21 08:07 Potassium 4.3 mmol/L (3.5-5.1) 05/01/21 08:07 Chloride 105 mmol/L (98-107) 05/01/21 08:07 Carbon Dioxide 33 mmol/L (21-32) H 05/01/21 08:07 BUN 51 mg/dL (7-18) H 05/01/21 08:07 Creatinine 1.46 mg/dL (0.55-1.3) H 05/01/21 08:07 Estimated GFR 46 mL/min (=/>90) L 05/01/21 08:07 Glucose 165 mg/dL (74-106) H 05/01/21 08:07 Lactic Acid 1.2 mmol/L (0.4-2.0) 05/01/21 08:07 Calcium 9.5 mg/dL (8.5-10.1) 05/01/21 08:07 Total Bilirubin 0.6 mg/dL (0.2-1.0) 05/01/21 08:07 Direct Bilirubin 0.4 mg/dL (0-0.2) H 05/01/21 08:07 AST 27 U/L (15-37) 05/01/21 08:07 ALT 24 U/L (12-78) 05/01/21 08:07 Alkaline Phosphatase 116 U/L (45-117) 05/01/21 08:07 Creatine Kinase 93 U/L (39-308) 05/01/21 08:07 CK-MB (CK-2) < 1.0 ng/mL (1.0-3.6) L 05/01/21 08:07 Rapid Troponin I 0.03 ng/mL (0.0-0.045) 05/01/21 08:07 Serum Total Protein 7.5 g/dL (6.4-8.2) 05/01/21 08:07 Albumin 2.4 g/dL (3.4-5.0) L 05/01/21 08:07 Globulin 5.1 g/dL (2.3-3.5) H 05/01/21 08:07 Albumin/Globulin Ratio 0.5 (1.1-1.8) L 05/01/21 08:07 Amylase 21 U/L (25-115) L 05/01/21 08:07 Lipase 17 U/L (73-393) L 05/01/21 08:07 Procalcitonin 1.29 ng/mL (<0.050) H 05/01/21 08:07 Urine RBC Cancelled 05/01/21 07:48 Urine WBC Cancelled 05/01/21 07:48 Ur Squamous Epith Cells Cancelled 05/01/21 07:48 Ur Urothelial Cells Cancelled 05/01/21 07:48 Calcium Oxalate Crystal Cancelled 05/01/21 07:48 Uric Acid Crystals Cancelled 05/01/21 07:48 Triple Phos Crystals Cancelled 05/01/21 07:48 Other Crystals Cancelled 05/01/21 07:48 Amorphous Sediment Cancelled 05/01/21 07:48 Glitter Cells Cancelled 05/01/21 07:48 Urine Bacteria Cancelled 05/01/21 07:48 Hyaline Casts Cancelled 05/01/21 07:48 Fine Granular Casts Cancelled 05/01/21 07:48 Coarse Granular Casts Cancelled 05/01/21 07:48 Waxy Casts Cancelled 05/01/21 07:48 RBC Casts Cancelled 05/01/21 07:48 WBC Casts Cancelled 05/01/21 07:48 Urine Mucus Cancelled 05/01/21 07:48 Urine Other Cancelled 05/01/21 07:48 Urine Trichomonas Cancelled 05/01/21 07:48 Urine Yeast Cancelled 05/01/21 07:48 Ur Yeast w Hyphae Cancelled 05/01/21 07:48 Urine Yeast (Budding) Cancelled 05/01/21 07:48 Urine Sperm Cancelled 05/01/21 07:48 Urine Culture Reflexed Cancelled 05/01/21 07:48 Urine Total Volume Cancelled 05/01/21 07:48 SARS-CoV-2 RNA (RT-PCR) Negative (NEGATIVE) 05/01/21 09:30 Smear Scan Ok (OK) 05/01/21 08:07 Assessment And Plan - Plan eneral: Alert, Cachectic HEENT: Atraumatic, Normocephalic Neck: Supple, 2+ carotid pulse no bruit Respiratory: Clear to auscultation bilaterally, Normal air movement Cardiovascular: No edema, Normal pulses, Other (tachy) Capillary refill: <2 Seconds Gastrointestinal: Soft and benign, Non-distended Musculoskeletal: Other (right AKA on 05/03. 1 drain present. ) Integumentary: Other (left PVD wound: extends from knee to ankle on lateral aspect of chavez. 10% of wound shows necrotic tissue, remain is mix of granulation and fibrin tissue) Antibiotics: Vancomycin Start: 05/02 stop: -- ceftazidime start: 05/02 stop: -- Assessment: -right lower extremity wound status post right [id number] amputation perform ed on 05/03 -left lower extremity wound extending from knee to ankle on the lateral aspect of chavez. -history of femoral-popliteal artery bypass graft -diabetes mellitus type 2 -chronic anemia -muscle wasting syndromes/protein caloric malnutrition -CKD stage 3 Plan: -AKA performed on 05/03. Wound care per surgery team. -left lower extremity wound: Etiology likely a mix of the venous/arterial disease. Wound cultures performed on 05/01 grew multi-drug resistant Pseudomonas aeruginosa and Enterobacter. Pseudomonas sensitive to ceftazidime and Enterobacter intermittent to ceftazidime, continue current treatment. Continue systemic IV antibiotics for duration of hospital stay, Vancomycin trough goal of 10-15. Continue monitor renal function closely. -Patient can be sent home without antibiotics with local wound care. wound care: LLE: Recommend cleaning wound with 1% ascetic acid or Dakin's 0.5 percent solution. If Dakin's is used, use no more than 10-14 days. Then applying Medihoney, and wrap with Kerlix. Sacral wound: Duoderm. Right residual limb: Wound care orders per surgical team. dressing change: qMWF -blood cultures taken on 05/01: 2/4 bottles grew Staph epi. Likely contamination, however is covered with current antibiotic. -medical management per primary team -continue monitor CBC and BMP -continue to monitor for signs of infection Plan of care discussed with Dr. Evangelista. Thank you for consultation
--- NOTE | 2021-05-10 12:59 | P.DS ---
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 Patient noted to have large wound extending from the calf to the posterior ankle of both legs. Patient has been following with the wound Care [facility]. He was also treated with hyperbaric oxygen at [place] recently. Arterial Doppler of the lower extremities done in January 2021 report advanced bilateral peripheral vascular disease. Family reports Dr. Ortiz has discussed amputation in the past. Dr. Ortiz was contacted who recommended hospitalization for IV antibiotics and for possible amputation. 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 Chronic kidney disease, stage 3 Chronic afib, on eliquis Patient treated with broad-spectrum Abx - vanc & ceftazidime. Except as in later transitioned to cefepime. blood cultures likely contaminant, wound culture growing MDR bacteria- Pseudomonas and Enterobacter. ID following an recommending topical antibiotics (Acetic acid or Dakin's solution) General surgery consulted. Dr. Ortiz - s/p R AKA on 05/03 Cardiology consulted for pre-op clearance/optimization, pt with negative cardiac stress test, now with afib with RVR, continue metoprolol. Pain management - on fentanyl PRN, continued OxyContin 80 mg t.i.d. Scheduled OxyContin for pain control. Local wound care on LLE. They refused further amputation. Patient and spouse also refused hospice. They also refused LTAC, or SNF placement. Home health for therapy and wound care. Also recommended home palliative care for pain and symptom control Insulin sliding scale used for for glucose management. Eliquis was held prior to surgery, patient developed acute blood loss anemia and was given 1 unit PRBC transfusion. Hemoglobin has been stable after blood transfusion. Eliquis resumed. Vital Signs/Physical Exam: Temp Pulse Resp BP Pulse Ox 97.9 F 83 16 106/66 100 05/10/21 12:00 05/10/21 12:00 05/10/21 12:00 05/10/21 12:00 05/10/21 12:00 General: Cachectic HEENT: Mucous membr. moist/pink Neck: JVD not distended Respiratory: Clear to auscultation bilaterally, Normal air movement Cardiovascular: Regular rate/rhythm, Normal S1 S2 Gastrointestinal: Soft and benign, Non-distended Musculoskeletal: Other (Right AKA. Amputation stump dressed.) Integumentary: Other (Left leg extensive ulcer dressed) Neurological: Other (No focal motor deficit) Laboratory Data at Discharge: WBC 7.70 K/uL (4.3-10.9) 05/09/21 21:10 Hgb 9.6 g/dL (13.6-17.9) L 05/09/21 21:10 Hct 28.5 % (39.6-49.0) L 05/09/21 21:10 Plt Count 225 K/uL (152-406) 05/09/21 21:10 PT 19.7 SECONDS (9.5-12.5) H 05/01/21 08:07 INR 1.70 05/01/21 08:07 APTT 26.4 SECONDS (24.3-36.9) 05/01/21 08:07 Sodium 138 mmol/L (136-145) 05/10/21 08:35 Potassium 4.3 mmol/L (3.5-5.1) 05/10/21 08:35 BUN 19 mg/dL (7-18) H 05/10/21 08:35 Creatinine 0.94 mg/dL (0.55-1.3) 05/10/21 08:35 Glucose 149 mg/dL (74-106) H 05/10/21 08:35 Phosphorus 2.9 mg/dL (2.5-4.9) 05/09/21 21:10 Magnesium 2.0 mg/dL (1.8-2.4) 05/10/21 08:35 Total Bilirubin 0.5 mg/dL (0.2-1.0) 05/09/21 21:10 AST 11 U/L (15-37) L 05/09/21 21:10 ALT 23 U/L (12-78) 05/09/21 21:10 Alkaline Phosphatase 193 U/L (45-117) H 05/09/21 21:10 Troponin I 0.03 ng/mL (0.0-0.045) 05/01/21 22:27 Amylase 21 U/L (25-115) L 05/01/21 08:07 Lipase 17 U/L (73-393) L 05/01/21 08:07 Home Medications: Alprazolam [Xanax] 1 mg PO TID PRN 01/24/21 Apixaban [Eliquis *] 2.5 mg PO BID 01/24/21 Ascorbic Acid [Vitamin C] 1,000 mg PO DAILY 01/24/21 Furosemide [Lasix] 80 mg PO PRN PRN 01/24/21 Metoprolol Succinate 12.5 mg PO DAILY 01/24/21 Simvastatin 20 mg PO DAILY 01/24/21 Trazodone HCl 100 mg PO BEDTIME 01/24/21 Vit A/Vit C/Vit E/Zinc/Copper [Preservision Areds Softgel] 1 cap PO DAILY 01/24/21 Gabapentin 1 tab PO DAILY 05/01/21 Mirtazapine 1 tab PO BEDTIME 05/01/21 Oxycodone HCl [Oxycontin] 1 tab PO Q8H 05/01/21 Docusate [Colace Cap*] 100 mg PO BID #60 cap 05/10/21 Glucerna Shake [Glucerna*] 237 ml PO TID #90 can 05/10/21 Antolin [Antolin*] 1 pkt PO BID #60 powd.pack 05/10/21 Medihoney [Medihoney Woundcare Gel*] 1 appl TOP DAILY #1 tube 05/10/21 New Medications: Docusate [Colace Cap*] 100 mg PO BID #60 cap Glucerna Shake [Glucerna*] 237 ml PO TID #90 can Antolin [Antolin*] 1 pkt PO BID #60 powd.pack Medihoney [Medihoney Woundcare Gel*] 1 appl TOP DAILY #1 tube Physician Discharge Instructions: Wound Care: clean wound with 1% ascetic acid or Dakin's 0.5 percent solution. If Dakin's is used, use no more than 10-14 days. Then applying Medihoney, and wrap with Kerlix. Sacral wound: Duoderm. Follow up with wound Care Clinic for wound care. Diet: Regular Activity: Fall precautions Followup: NONE,NONE [Primary Care Provider] - 1 Week Reji Ortiz MD [ACTIVE - CAN ADMIT] - 1-2 Weeks Time spent managing pt's care (in minutes): 42
[2021-05-10] MEDS ORDERED: VANCOMYCIN 1.25 GM in NA CHLORIDE 0.9% 250 ML IVPB SCH (18:00)
[2021-05-10] MEDS ORDERED: SODIUM HYPOCHLORITE 0.5% 473 ML TOP SCH (21:00)
[2021-05-10] MEDS: ALPRAZOLAM 1 MG TABLET PO PRN (21:26)
[2021-05-10 21:42] VITALS: BP 155/66; TEMP 98.2
[2021-05-10 22:05] VITALS: O2SAT 99
== END 2021-05-10 23:57 | disposition home health service (06) | DRG 239 ==
LOC: ER 07:12 → ERHOLD 10:23 → 2ND 13:38
PROVIDERS: ADMIT Internal Medicine; ATTEND Internal Medicine
PROC: 0Y6C0Z2 Detachment at Right Upper Leg, Mid, Open Approach (ICD-10-PCS; principal; 2021-05-05)
DX: E11.52 Type 2 diabetes mellitus with diabetic peripheral angiopathy with gangrene (principal); L89.153 Pressure ulcer of sacral region, stage 3; I70.261 Atherosclerosis of native arteries of extremities with gangrene, right leg; L97.813 Non-pressure chronic ulcer of other part of right lower leg with necrosis of muscle; D62 Acute posthemorrhagic anemia; E46 Unspecified protein-calorie malnutrition; I48.20 Chronic atrial fibrillation, unspecified; R64 Cachexia; I12.9 Hypertensive chronic kidney disease with stage 1 through stage 4 chronic kidney disease, or unspecified chronic kidney disease; E11.22 Type 2 diabetes mellitus with diabetic chronic kidney disease; N18.30 Chronic kidney disease, stage 3 unspecified; B96.5 Pseudomonas (aeruginosa) (mallei) (pseudomallei) as the cause of diseases classified elsewhere; B96.89 Other specified bacterial agents as the cause of diseases classified elsewhere; Z68.25 Body mass index [BMI] 25.0-25.9, adult; M62.50 Muscle wasting and atrophy, not elsewhere classified, unspecified site; Z95.5 Presence of coronary angioplasty implant and graft; Z96.651 Presence of right artificial knee joint; Z20.822 Contact with and (suspected) exposure to COVID-19; Z79.01 Long term (current) use of anticoagulants
CPT/HCPCS: 36415; 71045; 78452; 80048; 80053; 80076; 80202; 81001; 82150; 82550; 82553; 82947; 83605; 83690; 83735; 84100; 84145; 84443; 84484; 85025; 85610; 85730; 86850; 86900; 86901; 87040; 87070; 87077; 87186; 87205; 88305; 88307; 88311; 93005; 93017; 93971; 94760; 96361; 96365; 96366; 96367; 97110; 97161; 97530; 99285; A9500; J0713; J1170; J1644; J2370; J2405; J2543; J2704; J2785; J3010; J3370; J3475; J3480; J7030; J7040; J7050; P9016; U0003

== ENCOUNTER 2021-06-29 10:28 | Inpatient (IN) | payer OTHER, BC ==
--- OUTSIDE RECORDS SUMMARY | 2021-06-29 10:36 | XMS REPORT | Continuity of Care Document ---
:1940 Author Organization [facility] t Address [address] [place] [address] Care Team Providers Name Role Phone Garfield GAGNON Primary Care Physician Garfield GAGNON Attending Clinician Yuly Chirinos LMSW Attending Clinician Doctor Unassigned, Name Attending Clinician Unavailable Brannon GAGNON Attending Clinician Zee Davis MD Attending Clinician Ernesto Moreno MD Attending Clinician Jamaica Chapman MD Attending Clinician Unavailable Ronald Be MD Attending Clinician Giovanni GAGNON Attending Clinician BRANNON Attending Clinician Unavailable Chuckie Sena Attending Clinician Simeon Parisi Attending Clinician Abel Cunningham Attending Clinician ZEE DAVIS Admitting Clinician Unavailable Simeon Parisi Admitting Clinician bAel Cunningham Admitting Clinician Payers Payer Name Policy Type Policy Effective Date Expiration Source Number Date MEDICAREMEDICARE PART [id number] 1998 Un iversity of A & 00:00:00 [facility] [id number] 1997- [facility] [id number] ANTONINO NAVARRO [phone] BCBS OF [facility] [id number] [address] [id number] 0 00:00:00 Jadiel as Medical 5 [id number]-Inbrrpb408 [facility] [id number], [place] [address]Medicare Supplement MEDICAREMEDICARE A [id number] [address] [facility]AF070/[facility]/1997- 00:00:00 Med [facility] Center PresentMedicare BLUE CROSS/BLUE [id number] [address] [facility] [facility] - SHIELDBCBS PPO POS 0 00:00:00 Medica l Center EPO [id number], [place] [address]OJR Advance Directives Directive Decision Effective Termination Comments Source Date Date Healthcare Agents on N/A [facility] FileNameRelationshipHealthcare [facility] Agent Medical RelationshipCommunicationLakeland Community Hospital Care [phone] (Mobile) Problems Condition Condition Condition Status Onset Resolution Last Treating Co mments Source Name Details Category Date Date Treatment Clinician Date 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 U nivers protein-ca protein-ca 2-07 it y of karen jones 00:00: [place] malnutriti malnutriti 00 Me dical on on Branch PAD PAD Disease Active Overview: Summer s (periphera (periphera 2-03 Added it y of l artery l artery 00:00: automatic Jadiel as disease) disease) 00 ally from Med ica request Branch for surgery [id number] Osteomyeli Osteomyeli Disease Active U nivers tis tis 1-16 ity of 00:00: [place] 00 Medical Branch Closed Closed Disease Active 2019-[address] [facility] intertroch intertroch 2-21 Annalee kes - anteric anteric 00:00: Medical fracture fracture 00 Center of left of left hip hip 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 00:00: Medical involving involving 00 Cent [place] coronary coronary artery of artery of [place] heart heart without without angina angina pectoris [...] osteoporos 00:00: Me dical is is 00 [place] Chronic Chronic Disease Active 2019-[address] low back low back 2-21 [facility] - pain pain 00:00: Medical 00 [place] Acute on Acute on Disease Active 2019-11 Unive rs chronic chronic 0-26 [place]y of diastolic diastolic [place] congestive congestive 00 Ar dical heart heart Branch failure failure TIA [...] N, RENAL 8 17:34:00 l FAILURE, 00:00: [place] HYPOTENSIO DEHYDRATIO 00 N N, RENAL FAILURE, HYPOTENSIO N Active 07/04/2019 [facility] PVD Diagnosis Active 2019-07-06 Mem oria 06-22 21:56:00 l PVD 00:00: Jeremias 00 Active 06/22/2019 [facility] UNK Diagnosis Active 2019-06-23 Mem oria 06-22 19:27:00 l UNK 00:00: [place] 00 Active 06/22/2019 [facility] CARCAMO CARCAMO Disease Active Univers (dyspnea (dyspnea 6-16 ity of on on 00:00: [place] exertion) exertion) 00 [facility] Chronic Chronic Disease Active Univers atrial atrial [...] disease disease 00:00: [place] involving involving 00 [facility] [place] Branch coronary coronary artery of artery of [place] heart heart without without angina angina pectoris [...] anxiety [place]:00[place] disorder[place] disorder) 00 [facility] Insomnia Insomnia Disease Active 2014-11 Unive rs 1-18 ity of 00:00: [place] 00 Medical Branch Sleep Sleep Disease Active 2014-11 [...] demia) 00:00: Diagnosis [place] 00 Term [employer]er Branch Utility CARMEN CARMEN Disease Active 2008-11 Univers (obstructi (obstructi 2-11 it y of ve sleep ve sleep 00:00: [place] apnea) apnea) 00 Medical Branch Dehydratio Problem 2019-07-08 M emoria n 22:19:55 l [place] Dehydratio n 07/08/2019 [facility] Chronic Problem Resolve 2020-07-21 Mem oria pain d 21:21:18 l (finding) Chronic Herm jonas pain (finding) Resolved Problem 07/21/2020 legs and feet, back [facility] Cervical Problem Active 2020-07-21 Mem oria spondylosi 21:21:18 l s Cervical Telly n (disorder) spondylosi s (disorder) Active Problem 07/21/2020 [facility] Cervico-oc Problem Active 2020-07-21 M emoria cipital 21:21:18 l neuralgia Jeremias (finding) Cervico-oc cipital neuralgia (finding) Active Problem 07/21/2020 [facility] Chronic Problem Active 2020-07-21 Gabe carolynn back pain 21:21:18 l (disorder) Chronic Her bruno back pain (disorder) Active Problem 07/21/2020 [facility] Confusiona Problem Active 2020-07-21 M emoria l state 21:21:18 l (disorder) Telly n Confusiona l state (disorder) Active Problem 07/21/2020 [facility] Coronary Problem Active 2020-07-21 Mem oria arterioscl 21:21:18 l erosis Coronary Telly n (disorder) arterioscl erosis (disorder) Active Problem 07/21/2020 [facility] Essential Problem Active 2020-07-21 Me moria hypertensi 21:21:18 l on [place] (disorder) Essential hypertensi on (disorder) Active Problem 07/21/2020 [facility] Gastroesop Problem Active 2020-07-21 M emoria hageal 21:21:18 l reflux Jeremias disease Gastroesop (disorder) hageal reflux disease (disorder) Active Problem 07/21/2020 [facility] Headache Problem Active 2020-07-21 Mem oria (finding) 21:21:18 l Headache Telly n (finding) Active Problem 07/21/2020 [facility] Osteoarthr Problem Active 2020-07-21 M emoria itis 21:21:18 l (disorder) Telly n Osteoarthr itis (disorder) Active Problem 07/21/2020 [facility] Peripheral Problem Active 2020-07-21 M emoria nerve 21:21:18 l disease [place] (disorder) Peripheral nerve disease (disorder) Active Problem 07/21/2020 [facility] Tremor Problem Active 2020-07-21 Memor ia (finding) 21:21:18 l Tremor Jeremias (finding) Active Problem 07/21/2020 [facility] PERIPHERAL Diagnosis Active 2019-07-06 Memoria VASCULAR 21:56:00 l DISEASE, [place] UNSPECIFIE PERIPHERAL D VASCULAR DISEASE, UNSPECIFIE D Active [facility] HYPOTENSIO Diagnosis Active 2019-07-23 Memoria N, 22:09:00 l UNSPECIFIE Telly n D HYPOTENSIO N, UNSPECIFIE D Active [facility] DEHYDRATIO Diagnosis Active 2019-07-04 Memoria N 17:34:00 l Jeremias DEHYDRATIO N Active [facility] Nerve Problem Resolve 1994-2020-07-21 2020-07-21 Memoria injury d 06-22 21:21:18 21:21:18 l (disorder) Nerve 00:00: Pilar nn injury 00 (disorder) Resolved 06/22/1995 Problem 07/21/2020 [facility] Hypertensi Problem Resolve 1987-2020-07-21 2020-07-21 Memoria ve d 06-22 21:21:18 21:21:18 l disorder, 00:00: [place] systemic Hypertensi 00 arterial ve (disorder) disorder, systemic arterial (disorder) Resolved 06/22/1988 Problem 07/21/2020 [facility] Allergies, Adverse Reactions, Alerts Allergy Allergy [...] Allergy 01-01 [facility] - 00:00: Medical 00 [place] Morphine Drug Active 2019-[address] [facility] Allergy 01-01 [facility] - 00:00: Medical 00 [place] Morphine Propensi Active Nausea 2008-11 Univer s ty to and/or 2-11 ity of adverse Vomiting 00:00: [place] reaction 00 Medical s to [place] drug morphine morphine Active Memori a l Jeremias Dilaudid Dilaudid Active Memori a l [place] iodine iodine Active Memoria l [place] Family History Family Member Diagnosis Comments Start Date Stop Date Source Natural father Heart disease [facility] Natural mother Heart disease [facility] Social History Social Habit Start Date Stop Date Quantity Comments Source Exposure to Not sure University of SARS-CoV-2 [facility] (event) Branch History of Cigarette Smoker Universi ty of tobacco use [facility] Sex Assigned At [facility] Tobacco use and 2020-12-20 2020-12-20 Never used Universit y of exposure 00:00:00 00:00:00 [facility] Alcohol intake 2020-11-02 2020-11-[address] [facility] es - 00:00:00 00:00:00 (finding) [facility] Tobacco Comment 2020-09-19 2020-09-19 stopped 3 weeks Univ ersity of 00:00:00 00:00:00 ago [facility] Branch History SDAK 2020-09-05 2020-09-05 17 University o f Education 00:00:00 00:00:00 [facility] Branch History SDAK 2020-09-05 2020-09-05 5 University o f Financial 00:00:00 00:00:00 [facility] History [facility] Food 2020-09-05 2020-09-05 1 Univers ity of Worry 00:00:00 00:00:00 [facility] History [facility] Food 2020-09-05 2020-09-05 1 Univers ity of Scarcity 00:00:00 00:00:00 [place] [facility] History SDOH 2020-09-05 2020-09-05 2 University o f Transport Med 00:00:00 00:00:00 [place] Medic al Branch History SDOH 2020-09-05 2020-09-05 2 University o f Transport Non-Med 00:00:00 00:00:00 [facility] [place] [facility] edical Branch Social History 2020-07-19 2020-07-19 [facility] Arsalan pang 15:00:00 15:00:00 Smoking Status Start Date Stop Date Source Former smoker 2020-12-20 00:00:00 2020-12-20 00:00:00 Universi ty of [facility] Social History 2019-07-04 22:41:06 [facility] Her bruno Medications Ordered Filled Start [...] DAILY NEEDED FOR ANXIETY ergocalcife 2019-11- No [id number] Q7D Take [address] rol 12-06 capsule [facility] - (ERGOCALCIF 00:00: 23:59 (50,000 Me dical YUSEF) 1,250 00 :00 Units Center mcg (50,000 total) by unit) mouth once capsule a week for 28 days. ergocalcife 2019-11 2020- No [id number] Q7D Take [address] rol -11-06 capsule [facility] - (ERGOCALCIF 00:00: 00:00 (50,000 [...] daily as needed for Anxiety. aspirin 81 2019-11 No 81mg QD Take [address] MG EC -07 11- by mouth [facility] - tablet 14:35: 00:00 daily. Medical 21 :00 Center calcium 2019-11 No 500mg Q.5D Take [address] [facility] carbonate 2- 12- tablet [facility] - (TUMS) 500 00:00: 23:59 [...] Q.5D Take 1 [facility] t (ELIQUIS) -06 11- tablet [facility] - 2.5 mg Tab 00:00: 23:59 (2.5 mg Med ical tablet 00 :00 total) by Center mouth 2 (two) times daily. polyethylen 2019-11 No 17g QD Take [address] [facility] e glycol - 12-27 by mouth [facility] - (GLYCOLAX) 00:00: 00:00 daily. Medi brandon 17 gram 00 :00 Center packet calcium 2019-11- No 500mg Q.5D Take [address] carbonate 2- 12-27 tablet [facility] - (TUMS) 500 00:00: 00:00 (500 mg Med ical mg chewable 00 :00 total) by [address]ar ter tablet mouth 2 (two) times daily. apixaban 2019- 2020- No 2.5mg Q.5D Take 1 [facility] [...] layer morning Branch exposed and evening. traZODone 2019- Yes Insomnia, 100mg Take 1 Univers 100 [...] every ity of meterol 00:00: exertion) 12 [place] 250-50 00 (twelve) Medical mcg/dose hours. Branch inhalation disk ramelteon 8 2020-0 Yes Insomnia, 8mg Take 1 Univers mg tablet 8-10 unspecified tablet by ity of 00:00: type mouth at [place] 00 bedtime. Medical Branch ondansetron 2019-0 Yes [...] BY ity of mg tablet 00:00: MOUTH [place] 00 BEFORE Medical MEALS AND Branch AT BEDTIME. DULoxetine 2020-0 Yes 30 mg = 1 Me moria 30 mg oral 5-06 cap, PO, l delayed 15:03: Daily, # Telly n release 00 30 cap, 6 capsule Refill(s), [facility]acy: [facility] DULoxetine 2020-0 2020- No 1{capsu QD Take [address] (CYMBALTA) 5-06 12-22 le} capsule by Annalee kes - 30 MG 00:00: 00:00 mouth Medical capsule 00 :00 daily. [place] blood sugar 2020-0 Yes Type 2 TEST THREE Univers diagnostic [...] Bedtime, 0 Herm jonas 00 Refill(s) Ondansetron 2020-0 Yes 8 mg = 1 Me moria 8 MG Oral 2-06 tab, PO, l Tablet 22:03: TID, 0 Jeremias Refill(s) Metoclopram 2020-0 Yes 10 mg = 1 M emoria geoff 10 MG 2-06 tab, PO, l Oral Tablet 22:03: Daily, 0 He rmann 00 Refill(s) duloxetine 2019-0 Yes 20 mg = 1 Me moria 20 MG 2-06 cap, PO, l Enteric 18:34: Daily, # Telly n Coated 00 30 cap, 3 Capsule Refill(s), [Cymbalta] Pharmacy: [facility] citalopram No 0 Memoria 40 mg oral [...] 07-05 not exceed l 23:41: 4 gm/day. [place] 00 (Same as: Tylenol) Lactulose No Notes: Memori a 667 MG/ML 07-05 (Same l Oral 18:29: as:Chronul Jeremias Solution ac) Oxycontin No Notes: Do Mem oria 07-05 not crush l 15:21: or chew. Jeremias 00 (Same as: OxyContin) Dextrose No 12.5 gm, Memor ia 50% Syringe 07-05 25 mL, l 14:30: Route: [place] 00 IVP, Drug Form: INJ, Dosing Weight 87.415, [...] . WASTE: F/P - Black; E - Coin Trash Bin Stable for 28 days at room temperatur e. Expires in days from ____Date Dopamine No Notes: Memoria 8-25 (Same as: l 14:30: Intropin) Administer by either central venous catheter or peripheral ly-inserte d central catheter (PICC) line. Final conc = 3.2 mg/ml. Premix solution. Simvastatin No Notes: Gabe carolynn 07-05 (Same as: l 14:00: Zocor) Jeremias 00 Aspirin No Notes: Do Memor ia [...] ea, PO, l powder 22:51: BID, 0 [place] 00 Refill(s) AMIODarone Yes 200 mg = 1 M emoria 200 mg oral 8-22 tab, PO, l tablet 19:30: Daily, # Jeremias 00 30 tab, 0 Refill(s), Pharmacy: [facility] Aspirin 81 Yes 81 mg = 1 Me moria MG Enteric 8-22 tab, PO, l Coated 19:30: Daily, # Jeremias Tablet 00 30 tab, 0 Refill(s), Pharmacy: [facility] Docusate Yes 100 mg = 1 Mem oria Sodium 100 8-22 cap, PO, l MG Oral 19:30: BID, # 60 Pilar nn Capsule 00 cap, 0 Refill(s), Pharmacy: [facility] Famotidine 2019-0 Yes 20 mg = 1 Me moria 20 MG Oral 07-02 tab, PO, l Tablet 19:30: BID, # 60 Telly n 00 tab, 0 Refill(s), Pharmacy: [facility] metoprolol Yes 12.5 mg = Me moria 25 mg oral 07-02 0.5 tab, l tablet, 19:30: PO, Daily, Herm jonas extended 00 # 15 tab, release 0 Refill(s), Pharmacy: [facility] polyethylen Yes See Memori a e glycol 07-02 Instructio l 3350 oral 19:30: ns, PRN Pilar nn kit 00 Constipati on, PO BID, # 30 kit, 0 Refill(s), Pharmacy: [facility] sennosides, Yes 17.2 mg = M emoria PENITENTIARY 8.6 MG 07-02 2 tab, PO, l Oral Tablet 19:30: Bedtime, X Jeremias 00 14 day, # 28 tab, 0 Refill(s), Pharmacy: [facility] Amiodarone No Notes: Memor ia 07-02 (Same [...] ia 06-30 (Same as: l 20:38: Lasix) [place] Miralax No Notes: Memoria 06-30 Dissolve l 15:04: in 8 oz of Jeremias 00 water or juice. (Same as: Miralax) glycerin No 1 supp, Memori a adult 06-30 Route: HI, l rectal 15:03: Drug Form: Pilar nn suppository 00 SUPP, Dosing Weight 83.182, kg, Daily, PRN Constipati on, Start date: 06/30/19 10:03:00 CDT, Duration: 30 day, Stop date: 07/30/19 10:02:00 CDT, 0 Fleet Enema No 12 years, Memoria 06-30 Pediatric l 15:03: Dosing, 0 [place] citalopram No 20 mg = 1 Me moria 20 mg oral 20 tab, PO, l tablet 14:15: Daily, # [place] 00 30 tab, 0 Refill(s) metoprolol No Notes: Memor ia extended 06-30 (Same as: l release 14:00: Toprol XL) Do Not Crush Lasix No Notes: Memoria 06-29 (Same as: l 00:00: Lasix) MEDICATION WASTE Product Size: 40 mg Product Wasted: ___ mg Lasix No Notes: Memoria 06-28 (Same as: l 20:52: Lasix) MEDICATION WASTE Product Size: 40 mg [...] 06-27 (Same as: l odium 16:00: Phos-NaK) Each 1.5 gm pkt has 250mg phosphorou s. Mix w/2.5oz water and stir. K-Dur 10 No Notes: Memoria 8-17 (Same as: l 15:10: K-Dur 10) Jeremias 00 "Do Not Crush" With food and full glass of water LR IV 1,000 No 1,000 mL, M andrea mL 8-17 Rate: 100 l 14:52: ml/hr, Jeremias 00 Infuse over: 10 hr, Route: IV, Dosing Weight 83.182 kg, Total Volume: 1,000, Start date: 06/27/19 9:52:00 CDT, Duration: 30 day, Stop date: 07/27/19 9:51:00 CDT, 2, m2, 0 Reglan No Notes: Memoria 8-17 (Same as: l 14:51: Reglan) Jeremias 00 Potassium No Notes: Memori a Chloride 8- (Same as: l 14:51: KCL) Infuse no faster than 10 mEq/hr if given peripheral ly. sodium No Notes: Memoria phosphate 8-17 Infuse l 14:51: over 4 [place] 00 hour. Do not infuse phosphorou s [...] hours potassium No Notes: Memori a phosphate-s - (Same as: l odium 14:51: Phos-NaK) [place] phosphate 00 Each 1.5 250 mg-280 gm pkt has mg-160 mg 250mg oral powder phosphorou for s. Mix reconstitut w/2.5oz ion water and stir. Magnesium No Notes: Memori a Sulfate 06-27 WASTE: F/P l 14:51: - Sink; E - Municipal Trash Bin Magnesium No Notes: Memori a Oxide 06-27 (Same as: l 14:51: Mag-Ox [place] 00 400) Magnesium oxide 127pn=[id number] g elemental magnesium Dose=____m g magnesium oxide (___mg elemental magnesium) Calcium No Notes: Memoria Gluconate 06-27 WASTE: F/P l 14:51: - Sink; E [place] 00 - Municipal Trash Bin Calcium No Notes: Memoria Carbonate 06-27 (Same As: l 500 MG 14:51: Tums) Jeremias Chewable 00 Calcium Tablet Carbonate 500 mg = 200 mg elemental calcium Dose = mg calcium carbonate ( mg elemental calcium) Hydralazine No Notes: Gabe carolynn 06-27 (Same as: l 07:53: Apresoline ) Push over 5 minutes Pepcid No Notes: Memoria 06-26 (Same as: l 22:00: Pepcid) Tylenol No Notes: Do Memor ia 06-26 not exceed l 15:25: 4 gm/day. [place] 00 (Same as: Tylenol) Dexamethaso No 10 mg, 2.5 Memoria ne -16 mL, Route: l 12:57: IVP, Drug form: INJ, ONCE, Dosing Weight 83.182, kg, Start date: 06/26/19 7:57:00 CDT, Stop date: 06/26/19 7:57:00 CDT, 0 Compazine No Notes: Memori a -16 (Same as: l 12:57: Compazine) [place] 00 Benadryl No Notes: Memoria 8-16 (Same as: l 12:57: Benadryl) Jeremias 00 albumin No 25 gm, Memoria human 25% 06-25 Route: l intravenous 23:39: IVPB, Pilar nn solution 00 ONCE, Dosing Weight 83.182, kg, Start date: 06/25/19 18:39:00 CDT, Stop date: 06/25/19 18:39:00 CDT, Indication : Non-hemorr hagic shock ePHEDrine No Route: IV, Me moria (ANES) 06-25 Drug form: l 23:25: INJ, ONCE, [place] Stop date: 06/25/19 18:25:00 CDT Norepinephr 2019-0 No Notes: Gabe carolynn ine -15 Same as: l 23:14: Levophed. Administer by [...] oria ne 8 Route: l 22:57: IVP, [place] 00 Q5Min, Dosing Weight 83.182, kg, PRN Pain Score 7-10, Start date: 06/25/19 17:57:00 CDT, Duration: 4 doses or times, Stop date: Limited # of times Flumazenil 2019-0 No 0.2 mg, Gabe carolynn 8 Route: l 22:57: IVP, PRN, Dosing Weight 83.182, kg, PRN Benzodiaze pine Reversal, Initial dose, Start date: 06/25/19 17:57:00 CDT, Duration: 30 day, Stop date: 07/25/19 17:56:00 CDT Naloxone 2019-0 No 0.4 mg, Memori a 06-25 Route: l 22:57: IVP, [place] 00 Q2MIN, Dosing Weight 83.182, kg, PRN [...] ondansetron 2018-0 No Route: IV, Memoria (ANES) 8-15 Drug form: l 22:18: INJ, ONCE, Stop date: 06/25/19 17:18:00 CDT Lovenox 2018- No Notes: Memoria 8-15 (Same as: l 22:00: Lovenox) [place] 00 normal 2018- No 1,000 mL, Memori a saline 0.9% [...] acetaminoph No Route: IV, Memoria en (ANES) -15 Drug form: l 20:04: INJ, ONCE, Stop date: 06/25/19 15:04:00 CDT heparin No Route: IV, Gabe carolynn (ANES) 8-15 Drug form: l 19:23: INJ, ONCE, Stop date: 06/25/19 14:23:00 CDT albumin 20190 No Route: IV, Gabe carolynn human 8-15 Drug form: l (ANES) 25 18:36: INJ, Start [facility] date: 06/25/19 13:36:00 CDT, Stop date: 06/25/19 14:36:00 CDT lidocaine No Route: IV, Me moria (ANES) 8-15 Drug form: l 18:17: INJ, ONCE, Stop date: 06/25/19 13:17:00 CDT fentaNYL 2018-0 No Route: IV, Mem oria (ANES) 8-15 Drug form: l 18:17: INJ, ONCE, Stop date: 06/25/19 13:17:00 CDT propofol 2018-0 No Route: IV, Mem oria (ANES) 8-15 Drug form: l 18:17: INJ, ONCE, Stop date: 06/25/19 13:17:00 CDT rocuronium 2019-0 No Route: IV, Andriy emoria (ANES) 815 Drug form: l 18:17: INJ, ONCE, Stop date: 06/25/19 13:17:00 CDT ceFAZolin 2019-0 No Route: IV, moria (ANES) 8 Drug form: l 18:17: INJ, ONCE, Stop date: 06/25/19 13:17:00 CDT Sodium 2019-0 No Route: IV, Memor ia Chloride 8-15 Total l 0.9% IV 17:25: Volume: Jeremias (ANES) 1000 00 1,000, mL Start date: 06/25/19 12:25:00 CDT, Stop date: 06/25/19 13:25:00 CDT Calcium 2019-0 No 1,000 mL, Memor ia Chloride 06-25 [...] m2 vancomycin 2018- No Route: IV, Andriy lugoria (ANES) 1000 06-25 Drug form: l mg 17:01: INJ, Start date: 06/25/19 12:01:00 CDT, Stop date: 06/25/19 13:01:00 CDT Lactated 2018-0 No Route: IV, Mem oria Ringers 8-15 Total l Injection 17:01: Volume: Pilar nn IV (ANES) 00 1,000, 1000 mL Start date: 06/25/19 12:01:00 CDT, Stop date: 06/25/19 13:01:00 CDT Norepinephr 2018-0 No Notes: Gabe carolynn ine 06-25 Same as: l 14:13: Levophed. Administer by either central venous catheter or peripheral ly-inserte d central catheter (PICC) line. Concentrat ion: 0.032 mg / mL Lovenox No Notes: Memoria 8-14 (Same as: l 14:00: Lovenox) Jeremias 00 Docusate No Notes: Memoria 8-14 (Same as: l 14:00: Colace) Jeremias 00 (Do Not Crush) Aspirin No Notes: Do Memor ia 8-14 not crush l 14:00: or chew. Jeremias 00 (Same As: Ecotrin) Citalopram No 40 mg, 4 Mem oria -14 tab, l 14:00: Route: PO, Drug form: TAB, Daily, Dosing Weight 83.182, kg, Start date: 06/24/19 9:00:00 CDT, Duration: 30 day, Stop date: 07/23/19 9:00:00 CDT, 0 gabapentin No Notes: Memor ia 600 MG Oral 14 (Same as: l Tablet 14:00: Neurontin) Pilar Simvastatin No Notes: Gabe carolynn -14 (Same as: l 14:00: Zocor) Alprazolam No Notes: Memor ia 8-14 With food l 14:00: or milk (Same as: Xanax) Lisinopril No Notes: Memor ia 8-14 (Same as: l 14:00: Prinivil, [place] 00 Zestril) Zofran No Notes: Memoria 8-14 (Same as: l 02:46: Zofran) MEDICATION WASTE Product Size: 4 mg Product Wasted: ___ mg sennosides, No Notes: Gabe carolynn PENITENTIARY 8-14 (Same as: l 02:00: Senokot) Jeremias [...] Syringe 06-23 25 mL, l 22:52: Route: [place] IVP, Drug Form: INJ, Dosing Weight 83.182, kg, PRN, PRN Blood Glucose Results, Start date: 06/23/19 17:52:00 CDT, Duration: 30 day, Stop date: 07/23/19 17:51:00 CDT, 0 Glucagon No 1 mg, Memoria 06-23 Route: IM, l 22:52: Drug form: [place] 00 PDR/INJ, PRN, Dosing Weight 83.182, kg, PRN Blood Glucose Results, Start date: 06/23/19 17:52:00 CDT, Duration: 30 day, Stop date: 07/23/19 17:51:00 CDT, 0 Insulin No Notes: Memoria Lispro - (Same as: l 22:52: Humalog) Roll in palms of hands gently; Do not shake vigorously . WASTE: F/P - Black; E - Municipal Trash Bin Stable for 28 days at room temperatur e. Expires in days from ____Date Oxycodone No Notes: Memori a Hydrochlori - (Same as: l de 5 MG 22:49: Roxicodone Herm jonas Oral Tablet 00 ) Dextrose No 12.5 gm, Memor ia 50% Syringe 06-23 25 mL, l 22:47: Route: [place] IVP, Drug Form: INJ, Dosing Weight 83.182, [...] Gabe carolynn 06-23 Route: l 20:27: IVP, [place] 00 Q20Min, Dosing Weight 83.182, kg, PRN [...] Memori a 06-23 Route: l 20:27: IVP, [place] 00 Q5Min, Dosing Weight 83.182, kg, PRN [...] 06-23 Route: l 20:27: IVP, PRN, Jeremias Dosing Weight 83.182, kg, PRN Benzodiaze pine Reversal, Initial dose, Start date: 06/23/19 15:27:00 CDT, Duration: 30 day, Stop date: 07/23/19 15:26:00 CDT Naloxone 2019-0 No 0.4 mg, Memori a 06-23 Route: l 20:27: IVP, Jeremias 00 Q2MIN, Dosing Weight 83.182, kg, PRN Narcotic Reversal, Start date: 06/23/19 15:27:00 CDT, Duration: 8 doses or times, Stop date: Limited # of times Ondansetron 2019-0 No 4 mg, Memor ia 06-23 Route: l 20:27: IVP, ONCE, Jeremias Dosing Weight 83.182, kg, PRN Nausea & [...] 15:13:00 CDT vancomycin 2018-0 No Route: IV, M emoria (ANES) 1000 06-23 Drug form: l mg 19:35: INJ, Start date: 06/23/19 14:35:00 CDT, Stop date: 06/23/19 15:35:00 CDT ceFAZolin 2018-0 No Route: IV, Me moria (ANES) 1000 06-23 Drug form: l mg 19:30: INJ, Start date: 06/23/19 14:30:00 CDT, Stop date: 06/23/19 15:30:00 CDT Sodium 2018-0 No Route: IV, Memor ia Chloride 06-23 Total l 0.9% IV 19:26: Volume: Jeremias (ANES) 1000 1,000, mL Start date: 06/23/19 [...] 06-23 SEND TO l MG/ML 16:00: PRE-OP [place] Inhalant 00 SEND TO Solution PRE-OP SEND [...] [Trileptal] 00 30 tab, 3 Refill(s), Pharmacy: [facility] gabapentin 2017-11 Yes 600 mg = 1 M emoria 600 MG Oral 11-11 tab, PO, l Tablet 17:59: Daily, 0 Jeremias 00 Refill(s) Citalopram 2017-11 Yes 40 mg, PO, M emoria 1- Daily, 0 l 17:59: Refill(s) [place] 00 200 ACTUAT 2017-11 Yes 2 puff, Gabe carolynn Albuterol 1-01 INHALATION l 0.09 17:59: , Q6H, 0 [place] MG/ACTUAT 00 Refill(s) Metered Dose Inhaler [ProAir HFA] Lactulose 2017-11 Yes 10 gm = 15 Me moria 667 MG/ML 11-11 mL, PO, l Oral 17:59: BID, 0 [place] Solution 00 Refill(s) Omeprazole 2017-11 Yes 40 mg, PO, M emoria 11-11 Daily, 0 l 17:59: Refill(s) [place] 00 Diclofenac 2017-11 Yes PO, 0 Memori a 11-11 Refill(s) l 17:59: [place] 00 Docusate 2017-11 Yes 100 mg = 1 Mem oria Sodium 100 11-11 cap, PO, l MG Oral 17:59: Daily, 0 Telly n Capsule 00 Refill(s) Metoclopram 2017-11 Yes 10 mg, PO, Memoria geoff 11-11 BID, 0 l 17:59: Refill(s) Jerem[place] 00 Alprazolam 2017-11 Yes 1 mg, PO, Me moria 11-11 TID, PRN l 17:59: anxity, 0 [place] 00 Refill(s) Aspirin 2017-11 Yes 81 mg, [...] 2017-11 Yes 10 mg, PO, M emoria 1-01 Daily, 0 l 17:59: Refill(s) [place] 00 Simvastatin 2017-11 Yes 20 mg, PO, Memoria 1-01 Daily, 0 l 17:59: Refill(s) [place] 00 3 ML 2017-11 Yes 600 mg, 0 Memoria Insulin 11-11 Refill(s) l Lispro 100 17:59: Jerem[place] UNT/ML Pen 00 Injector [Humalog] Ondansetron 2017-11 Yes 8 mg, PO, M emoria 11-11 Q8H, PRN l 17:59: nausea, 0 [place] 00 Refill(s) Reglan 2017-11 No 10 mg, PO, Memor ia 11-11 BID, 0 l 17:59: Refill(s) Jerem[place] 00 lactulose Yes 15mL Take 15 mL Un neo 10 gram/15 6-29 by mouth 2 ity of mL (15 mL) 00:00: (two) Kerri Solshelby 00 times Medical daily. [facility] Insulin 2015-11 Yes 35U inject 35 Unive rs Syringe-Nee 1-28 Units ity of dle U-100 00:00: under the Jadiel as (SURE 00 skin Medical COMFORT daily. [facility] INSULIN SYRINGE) 1 mL 31 gauge x 5/16 Syrg Immunizations Ordered Filled Immunization Date Status Comments [facility] e Immunization Name Name Td 2018-02-05 Completed [facility] 00:00:00 [facility] Tetanus/Diptheria 2018-02-05 Completed Univers ity of 00:00:00 [facility] TDAP 2015-11-24 Completed University 00:00:00 [facility] Influenza Virus 2009-08-08 Completed Universit y of Vaccine 00:00:00 [facility] Influenza Virus 2001-12-18 Completed Universit y of Vaccine - Whole 00:00:00 [facility] Vital Signs Vital Name Observation Time Observation Value Comments Source Systolic blood 2020-11-05 11:20:00 160 mm[Hg] [facility] Diastolic blood 2020-11-05 11:20:00 71 mm[Hg] [facility] Heart rate 2020-11-05 11:20:00 90 /min [facility] Body temperature 2020-11-05 11:20:00 36.33 Alivia [facility] Respiratory rate 2020-11-05 11:20:00 18 /min [facility] Oxygen saturation in 2020-11-05 11:20:00 92 /min [facility] - Arterial blood by Medical Ce nter Pulse oximetry Body height 2020-11-01 19:07:[address] [facility] Body weight 2020-11-01 19:07:[address] [facility] BMI 2020-11-01 19:07:00 26.30 kg/m2 [facility] Systolic (mm Hg) 2020-03-16 14:30:00 Gabe rial Jeremias Diastolic (mm Hg) 2020-03-16 14:30:00 Mem orial [place] Heart Rate 2020-03-16 14:30:00 [facility] Respitory Rate 2020-03-16 14:30:00 Memori al [place] Temperature Oral (F) 2020-03-16 14:30:00 98.2 F [facility] Jeremias Height 2020-03-16 14:30:00 177.8 cm [facility] [place] Weight 2020-03-16 14:30:00 [facility]ias BMI Calculated 2020-03-16 14:30:00 Memori al [place]ias Systolic (mm Hg) 2019-12-17 17:47:00 Gabe rial Jeremias Diastolic (mm Hg) 2019-12-17 17:47:00 Mem orial Jeremias Heart Rate 2019-12-17 17:47:00 [facility] Respitory Rate 2019-12-17 17:47:00 Memori al [place] Height 2019-12-17 17:47:00 170.18 cm [facility] [place] Weight 2019-12-17 17:47:00 [facility] Jeremias BMI Calculated 2019-12-17 17:47:00 Memori al [place] Systolic (mm Hg) 2019-11-13 14:55:00 Gabe rial [place] Diastolic (mm Hg) 2019-11-13 14:55:00 Mem orial [place] Heart Rate 2019-11-13 14:55:00 [facility] Respitory Rate 2019-11-13 14:55:00 Memori al [place] Height 2019-11-13 14:55:00 170.18 cm [facility] [place] Weight 2019-11-13 14:55:00 [facility] [place] BMI Calculated 2019-11-13 14:55:00 Memori al [place] Respitory Rate 2019-07-06 20:00:00 Memori al [place] Systolic (mm Hg) 2019-07-06 20:00:00 Gabe rial [place] Diastolic (mm Hg) 2019-07-06 20:00:00 Mem orial [place] Respitory Rate 2019-07-06 19:00:00 Memori al Jeremias Systolic (mm Hg) 2019-07-06 19:00:00 Gabe rial [place] Diastolic (mm Hg) 2019-07-06 19:00:00 Mem orial [place] Respitory Rate 2019-07-06 18:00:00 Memori al [place]ias Systolic (mm Hg) 2019-07-06 18:00:00 Gabe rial [place] Diastolic (mm Hg) 2019-07-06 18:00:00 Mem orial Jeremias Temperature Oral (F) 2019-07-06 17:00:00 98.4 F [facility] [place] Temperature Oral (F) 2019-07-06 13:00:00 98.6 F [facility] [place] Temperature Oral (F) 2019-07-06 09:00:00 98.1 F [facility]ias Height 2019-07-04 22:35:00 175.26 cm [facility] Weight 2019-07-04 22:35:00 [facility] [place] BMI Calculated 2019-07-04 22:35:00 Memori al [place] Respitory Rate 2019-07-02 20:00:00 Memori al [place] Systolic (mm Hg) 2019-07-02 20:00:00 Gabe rial Jeremias Diastolic (mm Hg) 2019-07-02 20:00:00 Mem orial [place] Respitory Rate 2019-07-02 19:00:00 Memori al [place] Systolic (mm Hg) 2019-07-02 19:00:00 Gabe rial Jeremias Diastolic (mm Hg) 2019-07-02 19:00:00 Mem orial [place] Respitory Rate 2019-07-02 17:00:00 Memori al [place] Systolic (mm Hg) 2019-07-02 17:00:00 Gabe rial [place] Diastolic (mm Hg) 2019-07-02 17:00:00 Mem orial Jeremias Temperature Oral (F) 2019-07-02 17:00:00 98.6 F [facility] Temperature Oral (F) 2019-07-02 13:00:00 98.7 F [facility] [place] Height 2019-07-02 10:02:00 170.18 cm [facility] [place] Temperature Oral (F) 2019-07-02 09:00:00 99.2 F [facility] Height 2019-07-01 18:14:00 170.18 cm [facility] Height 2019-07-01 09:16:00 170.18 cm [facility] Heart Rate 2019-06-25 16:38:00 [facility] [place] Heart Rate 2019-06-25 12:53:00 [facility] [place] Heart Rate 2019-06-25 07:51:00 [facility] Weight 2019-06-23 15:01:00 [facility] BMI Calculated 2019-06-23 15:01:00 Memori al Jeremias BMI Calculated 2018-10-23 15:03:00 Memori al [place] Height 2018-10-23 15:03:00 177.8 cm [facility] [place] Weight 2018-10-23 15:03:00 [facility] [place] Systolic (mm Hg) 2018-10-23 15:03:00 Gabe rial Jeremias Diastolic (mm Hg) 2018-10-23 15:03:00 Mem orial Jerem[place] Heart Rate 2018-10-23 15:03:00 [facility] BMI Calculated 2018-10-09 19:30:00 Memori al [place] Weight 2018-10-09 19:30:00 [facility] [place] Height 2018-10-09 19:30:00 177.8 cm [facility] Respitory Rate 2018-10-09 19:30:00 Memori al [place] Heart Rate 2018-10-09 19:30:00 [facility] [place] Systolic (mm Hg) 2018-10-09 19:30:00 Gabe rial [place] Diastolic (mm Hg) 2018-10-09 19:30:00 Mem orial [place] BMI Calculated 2018-09-11 16:37:00 Memori al [place] Weight 2018-09-11 16:37:00 [facility] Heart Rate 2018-09-11 16:37:00 [facility] [place] Height 2018-09-11 16:37:00 177.8 cm [facility] Systolic (mm Hg) 2018-09-11 16:37:00 Gabe rial [place] Diastolic (mm Hg) 2018-09-11 16:37:00 Mem orial Jeremias Procedures Procedure Date / Time Performing Clinician Source Performed HOME HEALTH - OTHER 2021-02-20 05:01:00 [facility] 2020-11-05 11:31:00 Lam Moreno [facility] CBC W/PLT COUNT & AUTO 2020-11-05 11:06:00 Lam Moreno [facility] POCT-GLUCOSE METER 2020-11-05 08:26:00 Josh [facility] POCT-GLUCOSE METER 2020-11-04 21:03:00 Josh [facility] POCT-GLUCOSE METER 2020-11-04 15:51:00 Josh [facility] POCT-GLUCOSE METER 2020-11-04 11:16:00 Josh [facility] POCT-GLUCOSE METER 2020-11-04 04:52:00 Josh [facility] POCT-GLUCOSE METER 2020-11-03 21:00:00 Josh [facility] POCT-GLUCOSE METER 2020-11-03 15:59:00 Josh [facility] POCT-GLUCOSE METER 2020-11-03 11:29:00 Josh [facility] POCT-GLUCOSE METER 2020-11-03 07:35:00 Josh [facility] CBC (HEMOGRAM ONLY) 2020-11-03 06:14:00 Genevieve Chapman [facility] BASIC METABOLIC PANEL 2020-11-03 06:14:00 Genevieve Chapman I [address] POCT-GLUCOSE METER 2020-11-02 21:00:00 Lam Moreno [facility] POCT-GLUCOSE METER 2020-11-02 16:08:00 [facility] 2020-11-02 12:22:00 Josh [facility] POCT-GLUCOSE METER 2020-11-02 10:48:00 Josh [facility] FL FLUORO NON-SPECIFIC 2020-11-02 08:51:[address] [facility] - UP TO 1 HOUR [facility] IM RODDING,FEMUR 2020-11-02 07:31:00 Genevieve Chapman [facility] PROCEDURE W/ C-ARM 2020-11-02 07:31:00 Genevieve Chapman [facility] POCT-GLUCOSE METER 2020-11-02 06:33:00 DavisElenita [facility] CBC (HEMOGRAM ONLY) 2020-11-02 03:32:00 Genevieve Chapman [facility] BASIC METABOLIC PANEL 2020-11-02 03:32:00 Genevieve Chapman CH I [facility] () [facility] TSH/FREE T4 IF 2020-11-02 03:32:00 [facility] VITAMIN B12 AND FOLATE 2020-11-02 03:32:00 Tommy [facility] POCT-GLUCOSE METER 2020-11-01 21:44:00 Davis, Elenita Koch [facility] ABORH, MANUAL 2020-11-01 16:43:00 Neema Stark [facility] TYPE AND SCREEN, 2020-11-01 16:19:00 Jameel Sarmiento [facility] POCT-GLUCOSE METER 2020-11-01 13:03:00 Davis, Elenita Koch [facility] NM MYOCARDIAL PERFUSION 2020-11-01 11:50:00 Alma Rosa Schwartz [facility] - PET/CT (REST & STRESS) Medical C enter ECG 12-LEAD 2020-11-01 11:34:14 Unknown, Hl7 Doctor [facility] TREADMILL 2020-11-01 11:34:12 Unknown, Hl7 Doctor [facility] - TOLERANCE(NON-NUCLEAR Medical Ce nter TREADMILL) 2D ECHO W/ DOPPLER 2020-11-01 09:32:00 Davis[facility] ([facility]PW[facility] POCT-GLUCOSE METER 2020-11-01 07:29:00 Davis, Elenita [facility] HEMOGLOBIN A1C 2020-11-01 06:11:00 Davis, Elenita [facility] VITAMIN D, 25-HYDROXY 2020-11-01 06:11:00 Davis, Elenita [facility] CBC (HEMOGRAM ONLY) 2020-11-01 06:11:00 Genevieve Chapman [facility] BASIC METABOLIC PANEL 2020-11-01 06:11:00 Genevieve Chapman I [facility] () [facility] SARS-COV2/RT-PCR ([facility] 2020-10-31 21:55:00 Davis[facility] CBC W/PLT COUNT & AUTO 2020-10-31 21:50:00 Davis[facility] DIFFERENTIAL [facility] BASIC METABOLIC PANEL 2020-10-31 21:50:00 Davis[facility] TROPONIN I 2020-10-31 21:50:00 Davis, Elenita Koch [facility] PROTHROMBIN TIME/INR 2020-10-31 21:50:00 Davis, Elenita Koch [facility] XR FEMUR 2 VIEWS LEFT 2020-10-31 19:19:00 Mart Jason [facility] XR FOOT 3 VIEWS LEFT 2020-10-31 19:19:00 Mart Jason [facility] XR ANKLE 3 VIEWS LEFT 2020-10-31 19:19:00 Jason Cevallos [facility] XR LEG / TIBIA AND 2020-10-31 19:19:00 Jason Cevallos [facility] kes - FIBULA 2 VIEWS LEFT Medical Cent er ECG 12-LEAD 2020-10-31 17:07:56 Elenita Davis [facility] Center Kyphoplasty of fracture 2013-06-22 05:00:00 Gabe Mcdowell of lumbar spine using computed tomography (CT) guidance Bypass / graft of vein 2008-06-22 05:00:00 Randi Mcdowell Arthroplasty of 1995-06-22 05:00:00 [facility] Her bruno knee<sup>1</sup> Discectomy 1986-06-22 05:00:00 [facility] 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 Gabe Mcdowell left hand Arthroscopy of knee 1964-06-22 05:00:00 [facility] joint<sup>2</sup> Appendectomy [facility] Plan of Care Planned Activity Planned Date Details Comments Source Future Scheduled 2028-02-06 [facility]ines (3 - Td) Medical Br anch [code = DTaP,Tdap,and Td Vaccines (3 - Td)] Future Scheduled 2021-12-20 Creatinine [facility] Test 00:00:00 measurement Medical Branch (procedure) [code = 40528542] Future Scheduled 2021-12-09 Microalbumin [facility] Test 00:00:00 measurement, urine, Medical Branch quantitative (procedure) [code = 778633313] Future Scheduled 2021-11-26 Calculated low [facility] [place] Test 00:00:00 density lipoprotein Medical Branch cholesterol level (procedure) [code = 836681671] Future Scheduled 2021-08-11 Depression screening Uni versity [facility] Test 00:00:00 (procedure) [code = Medical Branch 681570750] Future Scheduled 2021-07-12 INFLUENZA VACCINE Univer sity [facility] Test 00:00:00 (Season Ended) [code Medical Branch = INFLUENZA VACCINE (Season Ended)] Future Scheduled 2021-07-12 INFLUENZA VACCINE [facility] - Test 00:00:00 (Season Ended) [code Medical Center = INFLUENZA VACCINE (Season Ended)] Future Scheduled 2021-06-08 Hemoglobin A1c [facility] [place] Test 00:00:00 measurement Medical Branch (procedure) [code = 94121143] Future Scheduled 2021-05-[address] [facility] Test 00:00:00 measurement Medical Center (procedure) [code = 49455255] Future Scheduled 2020-11-[address] [facility] - Test 00:00:00 (12+) [code = Medical Center DEPRESSION SCREENING (12+)] Future Scheduled 2020-04-23 Screening for [facility] Test 00:00:00 malignant neoplasm of Medica l Branch lung (procedure) [code = 169087743] Future Scheduled 2006 Medicare Annual [facility] Test 00:00:00 Wellness Visit Medical [facility] h (procedure) [code = 147863391100529] Future Scheduled 2006 PNEUMOCOCCAL VACCINES Un [facility] Test 00:00:00 65+ (1 of 1 - PPSV23) Medica l Branch [code = PNEUMOCOCCAL VACCINES 65+ (1 of 1 - PPSV23)] Future Scheduled 2006 PNEUMOCOCCAL 65+ YRS [facility] - Test 00:00:00 (1 of 1 - Medical Center [id number] PCV13) [code = PNEUMOCOCCAL 65+ YRS (1 of 1 - [id number]_[id number] PCV13)] Future Scheduled 1999-06-[address] [facility] - Test 00:00:00 WELLNESS (YEAR 2 or Medical Center FIRST YEAR if no IPPE) [code = MEDICARE ANNUAL WELLNESS (YEAR 2 or FIRST YEAR if no IPPE)] Future Scheduled [address] [facility] Test 00:00:00 Vaccine (SHINGRIX) (1 Medica l [...] - Tdap)] Future Scheduled 1959 Diabetic foot [facility] Test 00:00:00 examination Medical Branch (regime/therapy) [code = 759970628] Future Scheduled 1953 COVID-19 VACCINE (1) [facility] - Test 00:00:00 [code = COVID-[address] VACCINE (1)] Future Scheduled 1951 Examination of retina [facility] Test 00:00:00 (procedure) [code = Medical Branch 000889019] Future Scheduled 1951 DIABETIC EYE EXAM [facility] - Test 00:00:00 [code = DIABETIC EYE Medical Center EXAM] Future Scheduled [address] [facility] - Test 00:00:00 examination Medical Center (regime/therapy) [code = 014479527] Future Scheduled 1951 Urine screening for [facility] - Test 00:00:00 protein (procedure) Medical Center [code = 615928732] Encounters Start End Encounter Admission Attending Care Care Encounter Source Date/Time Date/Time Type Type Clinicians Facility Department ID 2019-07-04 Inpatient U MHSE PUL [id number] MH 17:33:00 [facility] 2021-06-22 2021-06-22 Refysabel Merrill [facility] [id number] 00:00:00 00:00:00 [facility] [id number] [place] [id number] Professio [phone] nal 044 Office Building One 2021-06-05 2021-06-05 Refysabel Merrill DCARIELA [id number] 00:00:00 00:00:00 [place] [id number] [place] [id number] Professio [phone] nal 044 Building 2021-05-25 2021-05-25 Patient ARVIND Chirinos [id number] 00:00:00 00:00:00 Outreach Lizette [facility] [id number] [place] [id number] Professio [phone] nal 044 Office Building One 2021-05-24 2021-05-24 Office [place] [id number] 11:37:11 11:52:11 Visit [facility] [id number] [place] [id number] [facility] [phone] nal 044 Office [facility] One 2021-03-21 2021-03-21 Orders Doctor GENEVIEVE [id number] 00:00:00 00:00:00 Only Unassigned, MEGGAN [id number] Alanreed [facility] [phone] [id number] 2020-07-19 2020-07-19 Ambulatory nullFlavo MNA [id number] Memoria 15:00:00 15:00:00 Pre-Reg r Neurology 00 l Veronica Mcdowell 2020-07-19 2020-07-19 Ambulatory nullFlavo MNA [id number] Memoria 15:00:00 15:00:00 Pre-Reg r Neurology 10 l Veronica Mcdowell 2020-07-19 2020-07-19 Outpatient MHIE MHIE [id number] Memoria 10:00:00 10:00:00 00 l [place] 2020-07-19 2020-07-19 Outpatient MHIE MHIE [id number] Memoria 10:00:00 10:00:00 10 l Jeremias 2020-07-19 2020-07-19 Outpatient ELYSIA SenaMISCHER MHMISCHER [id number] 10:00:00 10:00:00 Fede 00 Chuckie 2020-07-19 2020-07-19 Outpatient JOCELYN SenaSCHER MHMISCHER [id number] 10:00:00 10:00:00 Fede 10 Chuckie 2020-03-16 2020-03-17 Outpatient nullFlavo MNA [id number] Memoria 14:15:00 04:59:59 r Neurology 09 l Veronica Mcdowell 2020-03-16 2020-03-16 Outpatient ELYSIA SenaMISCHER MHMISCHER [id number] 09:15:00 23:59:59 Fede 09 Chuckie 2020-03-16 2020-03-16 Outpatient MHIE MHIE [id number] Memoria 09:15:00 09:15:00 09 yuly Mcdowell 2019-12-17 2019-12-18 Outpatient nullFlavo MNA [id number] Memoria 17:45:00 05:59:59 r Neurology 08 l Veronica Jeremias 2019-12-17 2019-12-17 Outpatient ELSYIA SenaMISCHER MISCHER [id number] 11:45:00 23:59:59 Feed 08 Chuckie 2019-12-17 2019-12-17 Outpatient MHIE MHIE [id number] Memoria 11:45:00 11:45:00 08 yuly Jeremias 2019-11-13 2019-11-14 Outpatient nullFlavo MNA [id number] Memoria 14:45:00 05:59:59 r Neurology 07 l [place] Jeremias 2019-11-13 2019-11-13 Outpatient ELYSIA SenaKSSCHER MISCHER [id number] 08:45:00 23:59:59 Fede 07 Chuckie 2019-11-13 2019-11-13 Outpatient MHIE MHIE [id number] Memoria 08:45:00 08:45:00 07 yuly [place] 2019-07-04 2019-07-06 Inpatient nullFlavo [facility] [id number] Memoria 22:33:00 21:35:00 r Jeremias 36 l [facility] 2019-07-04 2019-07-06 Outpatient Isak, MHSE MHSE [id number] 17:33:00 16:35:00 Timoteonela Hendrix 2019-06-24 2019-07-02 Inpatient nullFlavo [facility] [id number] Memoria 18:43:00 20:37:00 r Jeremias 00 l [facility] 2019-06-24 2019-07-02 Outpatient Marisa, MHSE MHSE [id number] 13:43:00 15:37:00 Alejandroanendra 00 Roman 2019-06-24 2019-06-23 Inpatient U MHSE MED [id number] 13:43:00 15:31:00 [facility] 2019-02-26 2019-02-26 Ambulatory nullFlavo MNA [id number] Memoria 14:45:00 14:45:00 Pre-Reg r Neurology 05 l Veronica Mcdowell 2019-02-26 2019-02-26 Outpatient MHIE MHIE [id number] Memoria 09:45:00 09:45:00 05 yuly Mcdowell 2019-02-26 2019-02-26 Outpatient JOCELYN SenaSCHER MHMISCHER [id number] 09:45:00 09:45:00 Fede 05 Chuckie 2019-02-04 2019-02-04 Outpatient MHIE MHIE [id number] Memoria 13:15:00 13:15:00 06 yuly Mcdowell 2018-11-20 2018-11-20 Ambulatory nullFlavo MNA [id number] Memoria 19:15:00 19:15:00 Pre-Reg r Neurology 03 yuly [place] Jeremias 2018-11-20 2018-11-20 Outpatient MHIE MHIE [id number] Memoria 13:15:00 13:15:00 03 uyly Jeremias 2018-11-20 2018-11-20 Outpatient Nathen MHMISCHER MHMISCHER [id number] 13:15:00 13:15:00 Fede 03 Chuckie 2018-10-30 2018-11-01 Outside nullFlavo MNA [id number] Memoria 20:29:00 05:59:59 Medical r Neurology 02 [facility] [place] Jeremias 2018-10-30 2018-10-31 Outpatient MHMISCHER MHMISCHER [id number] 14:29:00 23:59:59 2018-10-23 2018-10-24 Outpatient nullFlavo MNA [id number] Memoria 15:30:00 05:59:59 r Neurology 04 yuly Martin Jeremias 2018-10-23 2018-10-23 Outpatient JOCELYN SenaSCHER MHMISCHER [id number] 09:30:00 23:59:59 Fede 04 Chuckie 2018-10-23 2018-10-23 Outpatient MHIE MHIE [id number] Memoria 09:30:00 09:30:00 04 yuly Jeremias 2018-10-09 2018-10-10 Outpatient nullFlavo MNA [id number] Memoria 19:30:00 05:59:59 r Neurology 02 yuly [place] Jeremias 2018-10-09 2018-10-09 Outpatient ELYSIA SenaMISCHER MHMISCHER [id number] 13:30:00 23:59:59 Fede 02 Chuckie 2018-10-09 2018-10-09 Outpatient MHIE MHIE [id number] Memoria 13:30:00 13:30:00 02 yuly Mcdowell 2018-09-26 2018-09-28 Phone nullFlavo MNA [id number] Memoria 18:14:00 05:59:59 Message r Neurology 01 l Veronica Mcdowell 2018-09-26 2018-09-27 Outpatient MHMISCHER MHMISCHER [id number] 12:14:00 23:59:59 2018-09-25 2018-09-27 Outside nullFlavo MNA [id number] Memoria 17:25:00 05:59:59 Medical r Neurology 00 l Records Veronica Mcdowell 2018-09-25 2018-09-26 Outpatient MHMISCHER MHMISCHER [id number] 11:25:00 23:59:59 00 2018-09-16 2018-09-17 Outpatient nullFlavo MNA [id number] Memoria 21:00:00 05:59:59 r Neurology 01 l Veronica Mcdowell 2018-09-16 2018-09-16 Outpatient Nathen MHMISCHER MHMISCHER [id number] 15:00:00 23:59:59 Fede 01 Chuckie 2018-09-16 2018-09-16 Outpatient MHIE MHIE [id number] Memoria 15:00:00 15:00:00 01 yuly Mcdowell 2018-09-11 2018-09-12 Outpatient nullFlavo MNA [id number] Memoria 16:30:00 04:59:59 r Neurology 00 l Veronica Mcdowell 2018-09-11 2018-09-11 Outpatient ELYSIA SenaMISCHER MHMISCHER [id number] 11:30:00 23:59:59 Fede 00 Chuckie 2018-09-11 2018-09-11 Outpatient MHIE MHIE [id number] Memoria 11:30:00 11:30:00 00 yuly Mcdowell Results Test Description Test Time Test Comments Results Result Sourc e Comments Treadmill Interface, External Ris C HI St tolerance(Non-Nu 6 In - 11/16/2020 10:49 [facility] Treadmill) 10:49:29 CSTProtocol Name Me dical Regadenoson Time In Cente r Exercise Phase [...] 187 mg/dL 70-110 H : TESTED AT [facility] [address] [facility] 1538) [facility], 770 30: 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 Tractor Operator/Techni vance ID = [id number] for ELVIN SANTIAGO Lab Interpretation (test code = Abnormal 49461-3) [facility] [id number] 11:43:00 Test Item Value Reference Range Interpretation Comments POC-GLUCOSE METER 187 mg/dL 70-110 H : TESTED A T [facility] [address] (BEAKER) (test code = BERTNE R [facility], 1538) [address]: Gas[employer] Tractor Operator/Techni vance ID = [id number] for ELVIN ESQUIVEL CBC with platelet count + automated [id number] 11:30:00 Test Item Value Reference Range Interpretation Comments WBC (test code = 6690-2) 6.9 See_Comment [A utomated message] The system [employer] generated this result transmitted ref erence range: 3.5 - 10 .5 K/L. The refe rence range was not u sed to interpret this result as normal/abnor mal. RBC (test code = 789-8) 2.54 See_Comment L [Au tomated message] The system [employer] generated this result transmitted ref erence range: 4.63 - 6 .08 M/L. The refe rence range was not u sed to interpret this result as normal/abnor mal. MCHC (test code = 786-4) 31.9 See_Comment L [A utomated message] The system [employer] generated this result transmitted ref erence range: [...] See_Comment [Aut omated message] 777-3) The system [employer] generated this result transmitted ref erence range: 150 - 45 0 K/CU MM. The referen ce range was not u sed to interpret this result as normal/abnor mal. MPV (test code = 11.3 fL 9.4-12.4 53213-5) nRBC (test code = 413) 0 See_Comment [Aut omated message] The system [employer] generated this result transmitted ref erence range: [...] See_Comment [Aut omated message] 670) The system [employer] generated this result transmitted ref erence range: 1.78 - 5 .38 K/L. The refe rence range was not u sed to interpret this result as normal/abnor mal. # Lymphs (test code = 1.49 See_Comment [Auto mated message] 414) The system [employer] generated this result transmitted ref erence range: 1.32 - 3 .57 K/L. The refe rence range was not u sed to interpret this result as normal/abnor mal. # Monos (test code = 1.12 See_Comment H [Autom ated message] 415) The system [employer] generated this result transmitted ref erence range: 0.30 - 0 .82 K/L. The refe rence range was not u sed to interpret this result as normal/abnor mal. # Eos (test code = 416) 0.23 See_Comment [Au tomated message] The system [employer] generated this result transmitted ref erence range: 0.04 - 0 .54 K/L. The refe rence range was not u sed to interpret this result as normal/abnor mal. # Baso (test code = 417) 0.05 See_Comment [A utomated message] The system [employer] generated this result transmitted ref erence range: 0.01 - 0 .08 K/L. The refe rence range was not u sed to interpret this result as normal/abnor mal. Immature 1 % 0-1 Granulocytes-Relative (test code = 2801) Lab Interpretation (test Abnormal code = 98444-8) [facility] W/PLT COUNT & AUTO [id number] 11:30:00 Test Item Value Reference Range Interpretation [...] PERCENT (BEAKER) (test code = 2801) POCT-GLUCOSE [id number] 08:38:00 Test Item Value Reference Range Interpretation Comments POC-GLUCOSE METER 204 mg/dL 70-110 H : TESTED A T [facility] 6720 (BEAKER) (test code = [facility], 153) 27765: Gasoline Tractor Operator/Techni vance ID = [id number] for ELVIN ESQUIVEL POCT-GLUCOSE [id number] 21:15:00 Test Item Value Reference Range Interpretation Comments POC-GLUCOSE METER 156 mg/dL 70-110 H : TESTED A T [facility] 6720 (BEAKER) (test code = [facility], 153) 79683: Gasoline Tractor Operator/Techni vance ID = [id number] for Berta mills, Dhara POCT-GLUCOSE [id number] 16:04:00 Test Item Value Reference Range Interpretation Comments POC-GLUCOSE METER 153 mg/dL 70-110 H : TESTED A T [facility] 6720 (BEAKER) (test code = [facility], 153) 76927: Gasoline Tractor Operator/Techni vance ID = [id number] for Wi lliams, Areiona POCT-GLUCOSE [id number] 12:34:00 Test Item Value Reference Range Interpretation Comments POC-GLUCOSE METER 229 mg/dL 70-110 H : TESTED A T [facility] 6720 (BEAKER) (test code = [facility], [facility]) 17439: Gasoline Tractor Operator/Techni vance ID = [id number] for Wi lliams, Areiona POCT-GLUCOSE [id number] 05:06:00 Test Item Value Reference Range Interpretation Comments POC-GLUCOSE METER 129 mg/dL 70-110 H : TESTED A T [facility] 6720 (BEAKER) (test code = [facility], [facility]8) 41980: Gasoline Tractor Operator/Techni vance ID = [id number] for WI LLIAMS, ELVIN POCT-GLUCOSE [id number] 21:18:00 Test Item Value Reference Range Interpretation Comments POC-GLUCOSE METER 184 mg/dL 70-110 H : TESTED A T [facility] 6720 (BEAKER) (test code = [facility], [facility]8) 58970: Gasoline Tractor Operator/Techni vance ID = [id number] for [place] LLIAMS, ELVIN POCT-GLUCOSE [id number] 16:12:00 Test Item Value Reference Range Interpretation Comments POC-GLUCOSE METER 245 mg/dL 70-110 H : TESTED A T [facility] 6720 (BEAKER) (test code = [facility], [facility]) 60266: Gasoline Tractor Operator/Techni vance ID = [id number] for Wi lliams, Areiona POCT-GLUCOSE [id number] 11:53:00 Test Item Value Reference Range Interpretation Comments POC-GLUCOSE METER 183 mg/dL 70-110 H : TESTED A T [facility] 6720 (BEAKER) (test code = [facility], [facility]8) 22308: Gasoline Tractor Operator/Techni vance ID = [id number] for Wi lliams, Areiona POCT-GLUCOSE [id number] 08:15:00 Test Item Value Reference Range Interpretation Comments POC-GLUCOSE METER 165 mg/dL 70-110 H : TESTED A T [facility] 6720 (BEAKER) (test code = [facility], 153) 67855: Gasoline Tractor Operator/Techni vance ID = [id number] for Wi lliams, Areiona CBC (Hemogram only)2020-11-03 07:18:00 Test Item Value Reference Range Interpretation Comments WBC (test code = 6690-2) 7.9 See_Comment [A utomated message] The system [employer] generated this result transmitted ref erence range: 3.5 - 10 .5 K/L. The refe rence range was not u sed to interpret this result as normal/abnor mal. RBC (test code = 789-8) 2.40 See_Comment L [Au tomated message] The system [employer] generated this result transmitted ref erence range: 4.63 - 6 .08 M/L. The refe rence range was not u sed to interpret this result as normal/abnor mal. MCHC (test code = 786-4) 32.0 See_Comment L [A utomated message] The system [employer] generated this result transmitted ref erence range: [...] See_Comment [Aut omated message] 777-3) The system [employer] generated this result transmitted ref erence range: 150 - 45 0 K/CU MM. The referen ce range was not u sed to interpret this result as normal/abnor mal. MPV (test code = 10.5 fL 9.4-12.4 89327-9) nRBC (test code = 413) 0 See_Comment [Aut omated message] The system [employer] generated this result transmitted ref erence range: 0 - 0 /1 00 WBC. The refere nce range was not u sed to interpret this result as normal/abnor mal. Lab Interpretation (test Abnormal code = 82903-4) [facility] (HEMOGRAM ONLY)2020-11-03 07:18:00 Test Item Value [...] (BEAKER) (test code = 413) Basic Metabolic [id number] 07:06:00 Test Item Value Reference Range Interpretation Comments Sodium (test code = 140 meq/L 822-489 2677-2) Potassium (test code = 4.6 meq/L 3.5-5.1 2823-3) Chloride (test code = 104 meq/L 98-107 5-0) CO2 (test code = 27 meq/L 22-29 8-9) BUN (test code = 25 mg/dL 7-21 H 3094-0) Creatinine (test code 1.36 mg/dL 0.57-1.25 H = 2160-0) Glucose (test code = 181 mg/dL 70-105 H 2345-7) Calcium (test code = 8.3 mg/dL 8.4-10.2 L 02646-9) EGFR (test code = 51 mL/min/1.73 [place] [address]-6) NOT ACCURATE CREATININE CLEARANCE IN PREDICTING GLOMERULAR FILTRATION RATE . ESTIMATED GFR I S NOT APPLICABLE FOR DIALYSIS PATIENTS. CADY (test code = CADY) Gasoline Tractor Operator ID - TIMMY Campa Lab Interpretation Abnormal (test code = 36367-6) [facility] CenterBAC METABOLIC [id number] 07:06:00 Test Item Value Reference Range Interpretation [...] S NOT APPLICABLE FOR DIALYSIS PATIEN TS. Gasoline Tractor Operator ID Itzel WARNER FPOCT-GLUCOSE [id number] 21:16:00 Test Item Value Reference Range Interpretation Comments POC-GLUCOSE METER 191 mg/dL 70-110 H : TESTED A T [facility] 6720 (BEAKER) (test code = [facility], 1538) 44008: Gasoline Tractor Operator/Techni vance ID = [id number] for ELVIN PHILLIPS POCT-GLUCOSE [id number] 16:20:00 Test Item Value Reference Range Interpretation Comments POC-GLUCOSE METER 201 mg/dL 70-110 H : TESTED A T [facility] 6720 (BEAKER) (test code = [facility] [employer] [facility], 153) 34793: Gasoline Tractor Operator/Techni vance ID = [id number] for FE LDER, XI POCT-GLUCOSE [id number] 12:34:00 Test Item Value Reference Range Interpretation Comments POC-GLUCOSE METER 167 mg/dL 70-110 H : TESTED A T [facility] 6720 (BEAKER) (test code = [facility] Courtney [facility], 1538) 54195: Gasoline Tractor Operator/Techni vacne ID = [id number] for FE XI TORIBIO POCT-GLUCOSE [id number] 11:00:00 Test Item Value Reference Range Interpretation Comments POC-GLUCOSE METER 171 mg/dL 70-110 H : [facility] (test code = MARCELA Valdez [facility], 1538) 36583: Gasoline Tractor Operator/Techni vance ID = [id number] for NH EM, YUDITH FL, FLUORO, NON-SPECIFIC, UP TO 1 [id number] 08:51:00Reason for exam:->IM Rodding Left Femur [facility] : 1940 Sex: MFluoroscopic unit utilized for a procedure performed in the OR. No interpretation was requested. Refer to the operative report for findings. Refer to PACS for patient radiation dose information.FL fluoro non-specific up to 1 [id number] 08:51:00 Interface, External Ris In 11/02/2020 8:59 AM CSTFluoroscopic unit utilized for a procedure performed in the OR. No interpretation was requested. Refer to the operative report for findings. Referto PACS for patient radiation dose information.[facility] CenterPOCT-GLUCOSE [id number] 06:47:00 Test Item Value Reference Range Interpretation Comments POC-GLUCOSE METER 108 mg/dL 70-110 : [facility] (GEOVANNI) (test code = [facility] Courteny [facility], 1538) 49931: Gasoline Tractor Operator/Techni vance ID = [id number] for [place] LLIAMSELVIN TSH/Free T4 If [id number] 06:02:00 Test Item Value Reference Range Interpretation Comments TSH (test code = 1.932 See_Comment [Automated 32134-8) message] The system which generated this result transmit shannen reference range : 0.350 - 4.940 uIU/mL. The reference range was not used to interpret this result as normal/abnormal . CADY (test code = CADY) Gasoline Tractor Operator ID - RADHA Lab Interpretation Normal (test code = 38281-3) [facility] CenterVitamin B12 and [id number] 06:02:00 Test Item Value Reference Range Interpretation Comments Vitamin B12 (test 431 pg/mL 213-816 code = 2132-9) Folate (test code = 9.80 ng/mL See_Comment [Automa shannen 2284-8) message] The system which generated this result transmit shannen reference range : >=7.00. The reference range was not used to interpret this result as normal/abnormal . CADY (test code = CADY) Gasoline Tractor Operator ID - RADHA Lab Interpretation Normal (test code = 20887-7) [facility] CenterTSH/FREE T4 IF [id number] 06:02:00 Test Item Value Reference Range Interpretation Comments THYROID STIMULATING HORMONE 1.932 uIU/mL 0.350-4.940 (BEAKER) (test code = 772) Gasoline Tractor Operator ID - RADHA MVITAMIN B12 AND [id number] 06:02:00 Test Item Value Reference Range Interpretation Comments VITAMIN B12 (BEAKER) (test code = 431 pg/mL 213-816 774) FOLATE (BEAKER) (test code = 362) 9.80 ng/mL >=7.00 Gasoline Tractor Operator ID - RADHA MBASIC METABOLIC [id number] 04:33:00 Test Item Value Reference Range Interpretation [...] S NOT APPLICABLE FOR DIALYSIS PATIEN TS. Gasoline Tractor Operator ID - RADHA [facility]BC (HEMOGRAM ONLY)2020-11-02 [...] 0-0 (BEAKER) (test code = 413) POCT-GLUCOSE [id number] 22:00:00 Test Item Value Reference Range Interpretation Comments POC-GLUCOSE METER 241 mg/dL 70-110 H : TESTED A T [facility] 6720 (BEAKER) (test code = M[place], 1538) 47841: Gasoline Tractor Operator/Techni vance ID = [id number] for ELVIN PHILLIPS, [id number] 17:35:00 Test Item Value Reference Range Interpretation Comments ABO Grouping (test code = 2588) O Rh Factor (test code = 2589) POS [facility] CenterType and screen, [id number] 17:03:00 Test Item Value Reference Range Interpretation Comments ABO/RH AUTOMATED (BEAKER) (test O POSITIVE code = 2260) Ab Scrn (test code = 890-4) NEGATIVE [facility]2D Echo W/Doppler(CW/PW/Color)2020-11-01 16:29:24 Ejection FractionSLEH ECHO HEARTLAB MKCKESSON CPACSInterface, External Ris In - 11/01/2020 4:29 PM CSTTransthoracic Echocardiography Report (TTE) Demographics Patient Name NATE POWER Date ofStudy 11/01/2020 Gender Male Visit Number [id number] Race Unknown Room Number 1530 Number Date of 1940 Referring Elenita Davis MD Physician Age 80 year(s) Rn Observation Lucinda Hdz RDCS Interpreting Lb Darling MD Physician Fellow Lb [...] 0.27. AoV resting Peak Gradient = 24mmHg. Lojoiizw-gw-obtfft AoV cusp calcification. Note Doppler interrogation is [...] Velocity: 2.62 m/s TR Gradient: 27.49 mmHgKaiser [facility] Medical Center PET/CT, CARDIAC PERF REST AND [id number] 16:25:00Reason for exam:->pre-op clearance, poor functional capacity. h/o coronary stent [facility] : 1940 Sex: MFINAL REPORT PROCEDURE: MYOCARDIAL PERFUSION PET IMAGING (Rest/Stress)CPT CODE: 59534 INDICATION: Define Extent/Severity of Known CAD, Preoperative [...] MDReport Verified Date/Time: 11/01/2020 16:25:27 Reading Location: [place] [id number] Reading Room NM Myocardial Perfusion Pet/CT (Rest & Stress)2020-11-01 16:25:00Interface, External Ris In - 11/01/2020 4:27 PM CSTFINAL REPORT PROCEDURE: MYOCARDIAL PERFUSION PET IMAGING (Rest/Stress)CPT CODE: 70966 INDICATION: Define Extent/Severity of Known CAD, Preoperative [...] Kang MDReport Verified Date/Time:11/01/2020 16:25:27 Reading Location: [address] Reading Room Electronically signedby: KERVIN KANG MD on 11/01/2020 04:25 [facility] [id number] 13:26:30Interface, External Ris In - 11/01/2020 1:26 PM CSTVentricular Rate 82 BPMAtrial Rate 82 BPMQRS Duration 146 msQ-T Interval 434 msQTC Calculation(Bazett) 507 msR Salem -80 degreesT [place] 37 degreesAtrial fibrillationRight superior axis deviationRight bundle branch blockNonspecific T wave abnormalityProlonged QTAbnormal ECG31 Oct 2020No significant changesConfirmed by MD PAULINO, JENELLE (190) on 11/01/2020 1:26:25 [facility] HospitalPOCT-GLUCOSE [id number] 13:15:00 Test Item Value Reference Range Interpretation Comments POC-GLUCOSE METER 144 mg/dL 70-110 H : TESTED A T [facility] 6720 (BEAKER) (test code = [facility] [place], 1538) 28865: Gasoline Tractor Operator/Techni vance ID = [id number] for MARIXA MADDOX Hemoglobin [id number] 11:33:00 Test Item Value Reference Range Interpretation Comments Hemoglobin A1C (test code 6.2 % 4.3-6.1 H = 4548-4) CADY (test code = CADY) Gasoline Tractor Operator ID - [id number] Lab Interpretation (test Abnormal code = 60726-8) [facility] CenterHEMOGLOBIN [id number] 11:33:00 Test Item Value Reference Range Interpretation Comments HEMOGLOBIN A1C (BEAKER) (test code = 6.2 % 4.3-6.1 H 368) Gasoline Tractor Operator ID - [id number]-CoV2/RT-PCR (Asymptomatic ONLY)2020-11-01 10:43:00 Test Item Value Reference Range Interpretation Comments SARS-COV2/RT-PCR Negative Not Detected, (test code = Negative, See 72580-4) external report for linked test SARS-COV-2 [facility] EULALIA PERFORMING LAB (test code = 95278-9) CADY (test code = Negative result for [...] of the Act. Fact Sheet for Healthcare Providers:https://www.[employer]/sites/default/f laya/product/documents/F act_Sheet_HC_Providers_L mcd_VPNQ-ElZ-9.pdf Fact Sheet for Healthcare Patients:https://www.[employer]/sites/default/fi les/product/documents/Fa ct_Sheet_Patients_Lyra_S ARS-CoV-2.pdf Performing Laboratory:[facility] [place] [address] [facility]ARS[facility] ([facility])2020-11-01 10:43:00 Test Item Value Reference Range Interpretation Comments SARS-COV2/RT-PCR (test Negative Not Detected, Negative, code = 9274033) See external report for linked test SARS-COV-2 PERFORMING LAB [facility] EULALIA (test code = 0690483) Negative result for this test determines that [...] 564(g) of the Act.Fact Sheet for Healthcare Providers:https://www.[employer]/sites/default/files/product/documents/Fact_Shee k_VB_Jrebdpbkf_Vunw_TGFO-DoA-8.pdfFact Sheet for Healthcare Patients:https://www.[employer]/sites/default/files/product/ documents/Ntzk_Aoxtw_Thttpqdq_Sydq_AQNG-JqV-4.pdfPerforming Laboratory:[place] [address] [address], [place] [address]TPJBJ METABOLIC PANEL 2020-11-01 07:54:00 Test Item Value [...] S NOT APPLICABLE FOR DIALYSIS PATIEN TS. Gasoline Tractor Operator ID - ROSIANGPOCT-GLUCOSE [id number] 07:40:00 Test Item Value Reference Range Interpretation Comments POC-GLUCOSE METER 144 mg/dL 70-110 H : [facility] (BEAKER) (test code = [facility] [place], 1538) 845[address]: Gasoline Tractor Operator/Techni vance ID = [id number] for MARIXA MADDOX Vitamin D, 09-[id number] 07:34:00 Test Item Value Reference Range Interpretation Comments Vitamin D 25-Hydroxy 23.5 ng/mL 6.6-49.9 (test code = 2764) CADY (test code = CADY) Effective 08/21/2017: Reference Range ChangeNew: 6.6-49.9 ng/mL Previous: 13.0-47.8 ng/mL Recommended Vitamin D Target Range: 30.0-40.0 ng/mLOperator ID - PIAYA L Lab Interpretation (test Normal code = 95706-4) [facility] CenterVITAMIN D, 34-[id number] 07:34:00 Test Item Value Reference Range Interpretation [...] = 413) RAD, FEMUR, MIN. 2 VIEWS, [id number] 03:58:00Reason for exam:->Leftt hip [facility] : 1940 Sex: [...] 11/01/2020 03:58:30 RAD, FOOT, MIN 3 VIEWS, [id number] 03:58:00Reason for exam:->left [facility] : 1940 Sex: MFINAL [...] 11/01/2020 03:58:30 RAD, ANKLE, MIN 3 VIEWS, [id number] 03:58:00Reason for exam:- >left foot pain [facility] : 1940 Sex: [...] Singh Verified Date/Time: 11/01/2020 03:58:30 RAD, LEG, [id number] 03:58:00Reason for exam:->left leg pain [facility] : 1940 Sex: [...] Date/Time: 11/01/2020 03:58:30 XR femur 2 views [id number] 03:58:00Interface, External Ris In - 11/01/2020 4:00 [...] of the left femur. Signed: Nicole Singh MDRcotyhermann [facility] Verified Date/Time: 11/01/2020 03:58:30 [facility] / tibia and fibula 2 views [id number] 03:58:00Interface, External Ris In - 11/01/2020 4:00 [...] Signed: Nicole Singh Verified Date/Time: 11/01/2020 03:58:30 [facility] ankle 3 views [id number] 03:58:00Interface, External Ris In - 11/01/2020 4:00 [...] Nicole Singh MDReport Verified Date/Time: 11/01/2020 03:58:30 [facility]XR foot 3 views foli4156-03-01 03:58:00Interface, External Ris In - 11/01/2020 4:00 [...] Nicole Singh MDReport Verified Date/Time: 11/01/2020 03:58:30 [facility] HospitalTroponin I 2020-10-31 22:39:00 Test Item Value Reference Range Interpretation Comments Troponin I (test code = 0.02 ng/mL 0-0.03 35285-9) CADY (test code = CADY) Troponin I [...] DB Lab Interpretation (test Normal code = 40912-7) [facility] CenterTRDONTAN [id number] 22:39:00 Test Item Value Reference Range Interpretation [...] failure, acidosis, acute neurological disease, and persistent tachyarrhythmia.Gasoline Tractor Operator ID - DBBASIC METABOLIC PANEL 2020-10-31 22:32:00 Test Item Value Reference Range Interpretation Comments SODIUM (BEAKER) 132 meq/L 136-145 L (test code = 381) POTASSIUM (BEAKER) 5.1 meq/L 3.5-5.1 (test code = 379) CHLORIDE (BEAKER) 100 meq/L 98-107 (test code = 382) CO2 (BEAKER) (test 24 meq/L 22-29 code = 355) BLOOD UREA NITROGEN 17 [...] S NOT APPLICABLE FOR DIALYSIS PATIEN TS. Gasoline Tractor Operator ID - DBProthrombin time/[id number] 22:19:00 Test Item Value Reference Interpretation Comments Range Protime (test code = 15.4 See_Comment H [Autom ated 5902-2) message] The system which generated this result transmitted reference range : 11.9 - 14.2 seconds. The reference range was not used to interpret this result as normal/abnormal . INR (test code = 1.25 See_Comment [Automated 0571-6) message] The system which generated this result [...] valves. Lab Interpretation Abnormal (test code = 53492-2) [facility] CenterPROTHROMBIN TIME/[id number] 22:19:00 Test Item Value Reference Range Interpretation [...] mechanical heart valves.CBC W/PLT COUNT & AUTO HNPMMSKDRXEH1689-07-47 22:08:00 Test Item Value Reference Range Interpretation [...] PERCENT (BEAKER) (test code = 2801) CHEM [id number] 09:16:002.1[facility]annCHEM DBKRQ0133-30-20 09:16:003.5 [facility] HermannCHEM TFUPU4117-43-56 09:16:47105Brngcivj HermannCHEM PANEL 2019-07-06 09:16:0029[facility] HermannCHEM YKDSH7202-99-50 09:16:001.12[facility]annCHEM UJPUT2538-15-82 09:16:32641Pqfcujdi HermannCHEM MNJEC5246-77-38 09:16:003.9[facility] HermannCHEM IILZT9148-34-34 09:16:22527Tscliknw HermannCHEM HFQTZ0970-98-34 09:16:0032[facility] HermannCHEM QNOBG9079-87-92 09:16:007.6 [facility]annCHEM SENRD9957-45-50 09:16:006.9[facility]annCHEM PANEL 2019-07-06 09:16:0063[facility] HermannCHEM WLOFP0609-40-68 09:16:007.6[facility] WjpiguwDDJNBOJOEK9594-65-76 09:16:007.2[facility] JyruriuKIDGIMHADW3881-88-54 09:16:002.93[facility] YjogvsuMRZSODPAVG1976-08-61 09:16:009.4[facility] HSSYEQCXKK6248-52-14 09:16:0028.1[facility] PmxbqzsGEUFCWMBNM0503-60-58 09:16:00 96.1[facility] YqazrysPDLCHHPNPH2330-21-45 09:16:00 Test Item Value Reference Range Interpretation Comments MCH (test code = MCH) 32.1 pg 27.0-31.0 [facility] WyellutGJUVKVZTRD7678-07-71 09:16:0033.4[facility] HermannHEMATOLOGY 2019-07-06 09:16:0016.1[facility] XogasrfVJHOJZIJVX5848-21-81 09:16:31015Vnsgaagz ZogjsjbMAEGFVUSZL4806-91-16 09:16:007.9[facility] HermannSTIMULATION STUDIES 2019-07-06 09:16:0010.8[facility]annBLOOD BANK [id number] 16:00:00 Negative (07/05/19 11:00 AM)[facility]annBLOOD BANK [id number] 14:30:00 Product available 4(07/05/19 9:30 AM)[facility] HermannCHEM FTXVK3119-50-66 09:10:007.6[facility] HermannCHEM MOHLY5066-96-53 09:10:31681Dqmvlpcq HermannCHEM UQFLC7782-97-62 09:10:0045[facility] HermannCHEM PZTKL7960-25-80 09:10:001.69 [facility]annCHEM ZFXUE1708-82-10 09:10:18744Oqrtbdeo HermannCHEM PANEL 2019-07-05 09:10:003.7[facility] HermannCHEM HTFQY4993-38-62 09:10:37235Ffqxsedi HermannCHEM SFROV7859-30-87 09:10:0032[facility] HermannCHEM TRDML1288-36-20 09:10:007.6[facility] HermannCHEM ICGLO4350-36-16 09:10:008.7[facility] HermannCHEM YDOXD4172-62-95 09:10:0038[facility] HermannCHEM DSIAG2468-19-27 09:10:002.0 [facility]annCHEM EJXFM8062-67-71 09:10:003.7[facility] HermannHEMATOLOGY 2019-07-05 09:10:008.6[facility] LgylcyhJNZPINXISU4977-54-22 09:10:002.48[facility] CdggpdcWVEPZDHKMY8002-26-31 09:10:008.0[facility] ZorxletTYQKGMJNZX8258-62-16 09:10:0024.1[facility] HtvppqsEERGBAUXRC8599-63-85 09:10:0097.1[facility] [place] GBOYSZEQZG2268-11-19 09:10:00 Test Item Value Reference Range Interpretation Comments MCH (test code = MCH) 32.2 pg 27.0-31.0 [facility] EevwsflWGCIUWBFPU4625-45-50 09:10:0033.2[facility] HermannHEMATOLOGY 2019-07-05 09:10:0016.5[facility] QdamcdkSKOSBBVTPK4341-36-54 09:10:64642Kbroktms KcsunnvSWRGTQEYPX0783-52-60 09:10:008.5[facility] ThctheaGUGICLMDJFLC0922-63-56 00:33:49905Pqkjumcs CwuahntJAQFQQIKNRZZ4751-32-68 00:33:0046[facility] WZLENJTQQWWO2274-02-93 00:33:001.90[facility] EwrqusdAIRAAIKUVYAP6152-94-11 00:33:46136Ukbawdjj MzidgwpQIZEJKAWBBRX0419-78-59 00:33:003.8[facility] XDVSVPVLZXVC4259-73-79 00:33:00436Kdjtifjg OeydsviVWVJVIJEZEYJ1404-37-98 00:33:0032[facility] CmecufcMGYXCHYGUQMF1993-32-03 00:33:005.1[facility] KHSZIXLDNRDB4244-45-43 00:33:002.8[facility] GpgkhhzFDIBEGNZYBJZ7589-47-91 00:33:0021[facility] IexotziDLCOLFQWMPHK3792-91-76 00:33:0023[facility] VIGSSKQSPFXF6941-78-84 00:33:00516Midlcncl KknrzwmSRFCEPIDZMOC4392-73-48 00:33:001.6[facility] JnlrgjfKZHMLXXWCOBB7077-84-92 00:33:0033[facility] DBIPKZMERT1008-55-33 00:33:00 Test Item Value Reference Range Interpretation Comments INR (test code = INR) 1.16 1 0.85-1.17 [facility] MykqdzvKJEBBPITWG7526-89-26 00:33:00 Test Item Value Reference Range Interpretation Comments PT (test code = PT) 14.6 s 12.0-14.7 [facility] WpzkycbQAEMLMBXVG8900-75-26 00:33:00 Test Item Value Reference Range Interpretation Comments PTT (test code = PTT) 33.0 s 22.9-35.8 [facility] RtzokyyXNWUTMAPPG0639-33-99 00:33:0011.0[facility]annHEMATOLOGY 2019-07-05 00:33:002.89[facility] MwuswfmQJKMZBSZRV2453-02-72 00:33:009.3[facility] VvkxkbrYXYCDLCMAX7111-83-79 00:33:0027.9[facility] IbumlkhGMFLLUFHQB9999-69-28 00:33:0096.6[facility] MilyktgQFHNMDVRUB3698-01-31 00:33:00 Test Item Value Reference Range Interpretation Comments MCH (test code = MCH) 32.2 pg 27.0-31.0 [facility] RbjaonsFGLXBQVUYG7486-30-44 00:33:0033.3[facility]annHEMATOLOGY 2019-07-05 00:33:0016.9[facility] ZphmqniNLDAVVKMAV0641-48-17 00:33:64632Cbegwjrw XhubqrnXQLXRUVLAT4016-59-83 00:33:008.4[facility] DuzlynhWVAYFQJOLX0873-66-44 00:33:0066.6[facility] YumsiayJMBBKEUQCU6723-12-17 00:33:0012.6[facility] UYTTVLMHYP5247-58-85 00:33:0017.8[facility] OjrkqinNLJBJBMGVA7745-39-32 00:33:00 2.4[facility] FowvyqaDSOPLEROGE4357-97-09 00:33:000.6[facility]annHEMATOLOGY 2019-07-05 00:33:007.4[facility] TyuzlaoKNRJLVPCDX3894-60-22 00:33:001.4[facility] BovzhteVXMLCONGXF9708-72-39 00:33:002.0[facility] PpibnfnDPLOFLSXKJ4270-78-06 00:33:000.3[facility] VngqbxvOBKXJIWOND2983-68-34 00:33:000.1[facility] CARDIAC UEKPTGQ7477-85-21 00:33:000.07[facility] HermannCARDIAC NLTCMKR2342-28-22 00:33:14019Uuldthhd HermannCHEM OTESF0034-06-09 00:33:001.9[facility] HermannCHEM CCFVB0163-03-39 00:33:003.4[facility] YgzznwwVOCQIPFJQZYZ3169-78-63 00:33:009.8 [facility] LuwhtlpPPDZAVVHHUGP6245-98-06 00:33:00 Test Item Value Reference Range Interpretation Comments B/C Ratio (test code = B/C Ratio) 24 05-05 [facility] QottbikZWPVOACIIRTU7776-88-67 00:33:002.3[facility] HermannELECTROLYTES 2019-07-05 00:33:00 Test Item Value Reference Range Interpretation Comments A/G Ratio (test code = A/G Ratio) 1.2 1 0.7-1.6 [facility]annURINE KKDD0898-72-99 23:37:0026[facility] HermannURINE CHEM 2019-07-04 23:37:46981.00[facility] HermannCHEM QEDQO6654-70-54 16:11:27024 [facility]annCHEM VARID7719-37-89 16:11:0024[facility] HermannCHEM PANEL 2019-07-02 16:11:001.31[facility] HermannCHEM OIWKX0727-03-04 16:11:48897Vwchplco HermannCHEM JOMPF1617-13-26 16:11:004.1[facility] HermannCHEM QRIBS0877-36-18 16:11:05179Xveqmazy HermannCHEM VWKJC9757-24-16 16:11:0031[facility] HermannCHEM UDGMU4706-63-70 16:11:0010.1[facility]annCHEM BFIGU5519-55-16 16:11:008.2 [facility]annCHEM YYQCG7119-43-45 16:11:0052[facility] HermannCHEM PANEL 2019-07-01 19:11:0092[facility] HermannCHEM TVOBL9343-95-25 19:11:0021[facility] HermannCHEM WEFLJ1587-78-62 19:11:001.45[facility] HermannCHEM FZBGS4500-70-48 19:11:24510Dspkvaka HermannCHEM XMGJP8504-67-93 19:11:003.6[facility] HermannCHEM KMMDV4939-44-22 19:11:80575Raxlnbex HermannCHEM YENVO6840-74-53 19:11:0030 [facility]annCHEM XBIYH9027-46-55 19:11:008.1[facility] HermannCHEM PANEL 2019-07-01 19:11:0010.6[facility] HermannCHEM EUUUB9941-12-91 19:11:0046[facility] HermannCARDIAC JTQWTFO4868-14-13 16:38:69530Rwnfkagy HermannCHEM EGBLI4788-37-25 16:38:96131Vnobiiid HermannCHEM QGGMY2291-11-68 16:38:0016[facility] HermannCHEM GYPQH2818-84-28 16:38:001.12[facility] HermannCHEM SXTMB6752-61-09 16:38:79967 [facility]annCHEM SIBCB3375-79-73 16:38:003.9[facility] HermannCHEM PANEL 2019-06-30 16:38:88029Qbaaxyhq HermannCHEM XGRRS0357-48-31 16:38:0031[facility] HermannCHEM BENOA9778-11-50 16:38:008.1[facility] HermannCHEM ABJUH4826-70-66 16:38:005.0[facility] HermannCHEM CSNXJ5367-35-81 16:38:002.6[facility] HermannCHEM ERHKW0663-36-60 16:38:0029[facility] HermannCHEM NBUAQ3311-53-39 16:38:0011 [facility]annCHEM RMVDX3664-21-45 16:38:0092[facility] HermannCHEM PANEL 2019-06-30 16:38:001.7[facility] HermannCHEM NVEOC0199-71-87 16:38:008.9[facility] HermannCHEM FPHDU8769-59-75 16:38:00 Test Item Value Reference Range Interpretation Comments B/C Ratio (test code = B/C Ratio) 14 1 6-25 [facility]annCHEM FAPQW4710-46-71 16:38:002.4[facility] HermannCHEM PANEL 2019-06-30 16:38:00 Test Item Value Reference Range Interpretation Comments A/G Ratio (test code = A/G Ratio) 1.1 1 0.7-1.6 [facility]annCHEM TLCTG0143-92-44 16:38:0063[facility]annHEMATOLOGY 2019-06-30 16:38:009.0[facility] UtdbbahTPEZAHZADN0780-85-95 16:38:002.65[facility] IqzhrceOHDGSXAIOE8801-96-04 16:38:008.5[facility] SfovkffAQLVMNJCTI0777-64-78 16:38:0024.6[facility] IrcyttfYIEZGLELQN2597-22-47 16:38:0092.6[facility] IQACMPFOSL6685-89-42 16:38:00 Test Item Value Reference Range Interpretation Comments MCH (test code = MCH) 32.2 pg 27.0-31.0 [facility] YsyupmeWBVQHMENTS1496-28-82 16:38:0034.7[facility] HermannHEMATOLOGY 2019-06-30 16:38:0014.8[facility] ZppoguoPVIWRTRXAQ3143-65-42 16:38:05142Xkuvysqy TldhalmVQLYWXBXIP7731-64-89 16:38:008.5[facility] MuzubdnFUKCHSMTTS8235-40-47 18:44:009.6[facility] SgcqrkwFDQGHCAIEP1266-48-57 18:44:003.10[facility] PGNNLJQXWO3892-56-53 18:44:0010.0[facility] RrzdiqhXRFMIPQCVO8671-53-04 18:44:00 29.0[facility] QwmoidrZEBUHFOHMP7588-24-23 18:44:0093.5[facility]annHEMATOLOGY 2019-06-29 18:44:00 Test Item Value Reference Range Interpretation Comments MCH (test code = MCH) 32.1 pg 27.0-31.0 [facility] EaojhhqEKETZFDXNT9731-87-93 18:44:0034.4[facility] HermannHEMATOLOGY 2019-06-29 18:44:0014.9[facility] ByexstaGWPYYCIGWG5712-16-82 18:44:45124Evsmafvr GkjcgwqMCCPUSFRZI4790-61-35 18:44:008.6[facility] IzazgmhVXTYNXNDPP3190-27-84 18:44:0067.8[facility] VdhmjxgHTDMJRKNMW5886-80-12 18:44:0014.0[facility] TMFUWUFXPS6236-80-39 18:44:0015.7[facility] RupkyqoHQBKMJLWBD0121-38-76 18:44:00 2.2[facility] KhgdffaSECFADVMWO0548-78-60 18:44:000.3[facility] HermannHEMATOLOGY 2019-06-29 18:44:006.5[facility] GdygqnrYWCGOZHMGD8320-20-86 18:44:001.3[facility] IjcqtgwUPNQZNKHJW2698-28-11 18:44:001.5[facility] KqyahkeTMJYVYULIU6234-92-61 18:44:000.2[facility] HermannCHEM VCTGN7874-93-64 10:37:002.4[facility] HermannCHEM MXZBR4066-12-11 10:37:001.5[facility] GgcpgmyMVAQCPCTPU2768-61-36 10:37:0061.5 [facility] JclppapHHQTSQCUSB6020-74-41 10:37:0018.4[facility] HermannHEMATOLOGY 2019-06-29 10:37:0017.5[facility] PyubgwrUCTJDJSEWW5016-31-11 10:37:002.2[facility] BqupmvuSDIVJXPQAP1792-99-44 10:37:000.4[facility] BtgauozYDUBVYDEDC9554-61-92 10:37:005.5[facility] QezamjrRZVWHRXHHP7274-75-22 10:37:001.7[facility] YOGPZRGLDQ3767-59-05 10:37:001.6[facility] VwobmvyQVBXCTQWZE7757-28-50 10:37:000.2 [facility] JfywzehNQJGZINRFY4817-47-93 10:37:009.0[facility] HermannHEMATOLOGY 2019-06-29 10:37:002.54[facility] HgxxuqnNWGSZNUKDP5581-48-45 10:37:008.2[facility] KhkcpaiJTUOORDTNO4455-75-63 10:37:0023.3[facility] PofamlgANOGCMUSDA2892-40-72 10:37:0091.6[facility] MzgeqqtUXEHQHEGEU5365-53-62 10:37:00 Test Item Value Reference Range Interpretation Comments MCH (test code = MCH) 32.1 pg 27.0-31.0 [facility] XpqkkkvPIOZYAPCDS4727-87-35 10:37:0035.1[facility] HermannHEMATOLOGY 2019-06-29 10:37:0014.9[facility] JwleeqyLNAGOVABOW6854-16-86 10:37:11820Qhmlpkss HpoifzjYCTBIUOFCS6841-61-03 10:37:008.0[facility] HermannBLOOD BANK RESULTS 2019-06-28 20:52:00Product available (06/28/19 3:52 PM)[facility]annBL[facility]OD BANK OAVXVPZ5062-35-46 20:11:00Product available 4(06/28/19 3:11 PM)[facility]LOOD BANK OZETWJG3751-06-00 13:27:00Negative (06/28/19 8:27 AM)[facility] BLOOD BANK GYVVUNZ9929-53-91 13:05:00Product available 5(06/28/19 8:05 AM) [facility]annCHEM PCHGV9198-55-93 10:38:002.0[facility] HermannCHEM PANEL 2019-06-28 10:38:002.6[facility] RbzbigzUVQYJAXDAS1366-12-23 10:38:0070.8[facility] DhzawjaKPZOYKGLHE8579-15-52 10:38:0013.5[facility] WjqaflgYLRTIQOWXO4498-90-38 10:38:0015.1[facility] CgnjnsxZHAFHNZUJY9180-53-67 10:38:000.5[facility] LKACKKAKRK8237-78-43 10:38:000.1[facility] RrattcjFJIOLYQQBL0051-50-22 10:38:009.3 [facility] AvjmpyjNLNPSAEZPF7925-95-16 10:38:001.8[facility] HermannHEMATOLOGY 2019-06-28 10:38:002.0[facility] VqixhyuRRLDBPBVTL6548-11-38 10:38:000.1[facility] HermannCHEM APSJG2743-81-18 23:14:002.2[facility] HermannCHEM INXAA9172-05-70 23:14:003.3[facility] HermannCARDIAC CXSQNAY0550-62-98 23:30:000.03[facility] HermannPARATHYROID DSRUPGZ3944-32-99 19:47:001.08[facility] HermannPARATHYROID YEXICGX9284-07-34 19:47:001.10[facility]annBLOOD BANK EIZJVGF1044-30-97 16:13:00Negative (06/23/19 11:13 AM)[facility] TwixdrnAMEDHFUALS0186-38-29 16:13:00 Test Item Value Reference Range Interpretation Comments INR (test code = INR) 1.17 1 0.85-1.17 [facility] OlbdnpnYHVQZRGRXD5107-33-71 16:13:00 Test Item Value Reference Range Interpretation Comments PT (test code = PT) 14.7 s 12.0-14.7 [facility]WE6[facility] 16:13:00 Test Item Value Reference Range Interpretation Comments PTT (test code = PTT) 30.8 s 22.9-35.8 [facility]qwvhcfYCTYBSVPAM8732-73-66 [facility]
--- NOTE | 2021-06-29 11:31 | ER ---
Nurse's Notes [facility] Name: Mahnaz Baptiste Age: 81 yrs Sex: Male : 1940 Arrival Date: 06/29/2021 Time: 10:31 Bed 9 Private MD: Diagnosis: Cellulitis of left lower limb;Peripheral vascular disease, unspecified;Dehydration;Adult failure to thrive Presentation: 06/29 10:31 Chief complaint: EMS states: reports failure to thrive, possible hospice pending, hb seen in ED a few days ago and refused admit, "wanted a few more days with him at home.". Coronavirus screen: At this time, the client does not indicate any symptoms associated with coronavirus-19. Ebola Screen: No symptoms or risks identified at this time. Initial Sepsis Screen: Does the patient meet any 2 criteria? No. Patient's initial sepsis screen is negative. Does the patient have a suspected source of infection? No. Patient's initial sepsis screen is negative. Risk Assessment: Do you want to hurt yourself or someone else? Patient reports no desire to harm self or others. Onset of symptoms is unknown. 10:31 Method Of Arrival: EMS: [facility] 10:31 Acuity: ZIA 2 hb Triage Assessment: 10:40 General: Appears in no apparent distress. comfortable, emaciated, malnourished, sv Behavior is calm, cooperative, appropriate for age. Pain: Denies pain. Neuro: Level of Consciousness is awake, alert, obeys commands, Oriented to person, place, time, situation, Weakness. Cardiovascular:. Respiratory: Airway is patent Respiratory effort is even, unlabored, Respiratory pattern is regular, symmetrical. Derm: Skin is pale. Musculoskeletal: Amputation of left leg. 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 - Social history:: Smoking status: Patient denies any tobacco usage or history of. - Family history:: not pertinent. - Hospitalizations: : No recent hospitalization is reported. Screenin:53 Abuse screen: Denies threats or abuse. Denies injuries from another. Nutritional sv screening: No deficits noted. Tuberculosis screening: No symptoms or risk factors identified. Fall Risk No fall in past 12 months (0 pts). No secondary diagnosis (0 pts). IV access (20 points). Ambulatory Aid- None/Bed Rest/Nurse Assist (0 pts). Gait- Weak (10 pts.). Mental Status- Oriented to own ability (0 pts). Total [place] Fall Scale indicates Low Risk Score (25-44 pts). Fall prevention measures have been instituted. Side Rails Up X 2 Placed close to Nursing Station Frequent Obs/Assesments occuring As available Patient and Family Educated on Fall Prevention Program and strategies. Assessment: 12:00 Reassessment: Patient appears in no apparent distress at this time. No changes from sv previously documented assessment. 12:47 Reassessment: Patient appears in no apparent distress at this time. No changes from sv previously documented assessment. 13:06 Reassessment: Called Dr Tilley to get admission orders. He stated he would put them in. sv 14:28 Reassessment: Patient appears in no apparent distress at this time. No changes from sv previously documented assessment. Vital Signs: 10:31 BP 109 / 60; Pulse 88; Resp 27; Temp 98.4; Pulse Ox 92% ; hb 11:00 BP 100 / 44; Pulse 91; Resp 26; Pulse Ox 93% ; sv 12:00 BP 107 / 62; Pulse 88; Resp 21; Pulse Ox 97% on 3 lpm NC; sv 12:45 BP 93 / 49; Pulse 85; Resp 16; Pulse Ox 100% on 3 lpm NC; sv 13:30 BP 97 / 51; Pulse 83; Resp 19; Pulse Ox 100% on 3 lpm NC; sv 14:15 BP 112 / 61; Pulse 85; Resp 20; Pulse Ox 100% on 3 lpm NC; sv 14:47 Weight 70 kg; Height 5 ft. 7 in. (170.18 cm); sv 14:47 Body Mass Index 24.17 (70.00 kg, 170.18 cm) sv ED Course: 10:31 Patient arrived in ED. hb 10:33 Triage completed. hb 10:33 Arm band placed on. hb 10:35 Maintain EMS IV. Dressing intact. Good blood return noted. Site clean \\T\\ dry. Gauge \\T\\ sv site: 20G L wrist. 10:36 Randall Mane MD is Attending Physician. rn 10:40 Patient has correct armband on for positive identification. sv 10:57 Minoo Jimenez RN is Primary Nurse. sv 11:29 Vargas Tilley MD is Hospitalizing Provider. rn 11:30 CBC with Diff Sent. sv 12:44 COVID swab sent to lab. sv 14:27 No provider procedures requiring assistance completed. Patient admitted, IV remains in sv place. intact. 19:12 Primary Nurse role handed off by Minoo Jimenez RN 06/30 11:45 Attending Physician role handed off by Randall Mane MD hb Administered Medications: No medications were administered Outcome: 06/29 11:30 Decision to Hospitalize by Provider. rn 14:27 Admitted to ER Hold. Please see [facility] for further documentation. sv 14:27 Condition: stable 14:27 Instructed on the need for admit. 06/30 11:45 Patient left the ED. hb 14:36 Patient left the ED. hb Signatures: Minoo Jimenez RN RN Randall Mane MD MD rn Baxter, Heather, RN RN hb
--- NOTE | 2021-06-29 11:31 | EDPHYS ---
Physician Documentation [facility] Name: Mahnaz Baptiste Age: 81 yrs Sex: Male : 1940 Arrival Date: 06/29/2021 Time: 10:31 Bed 9 Private MD: ED Physician HPI: 06/29 11:23 This 81 yrs old Male presents to ER via EMS with complaints of General rn Weakness, worsening left leg pain. 11:23 The patient presents with cellulitis of the left leg. Description: draining, rn erythematous, swollen, warm. Onset: The symptoms/episode began/occurred at an unknown time. Possible cause(s): unknown. Associated signs and symptoms: Pertinent positives: drainage, erythema, swelling. Modifying factors: the symptoms are alleviated by nothing, the symptoms are aggravated by movement, touching. Severity of symptoms: At their worst the symptoms were moderate, in the emergency department the symptoms are unchanged. The patient has experienced similar episodes in the past. The patient has been recently seen by a physician:. Patient states was supposed to come to the hospital 2 days ago, had planned amputation with Dr. Ortiz, but wanted him home for 2 more days to spend time with them, now returns to the hospital for worsening left lower extremity pain and drainage. Family also reports generalized weakness and not wanting to eat or drink anything.. 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 - Social history:: Smoking status: Patient denies any tobacco usage or history of. - Family history:: not pertinent. - Hospitalizations: : No recent hospitalization is reported. ROS: 11:23 Constitutional: Negative for fever, chills, positive weight loss Eyes: Negative for rn injury, pain, redness, and discharge, Neck: Negative for injury, pain, and swelling, Cardiovascular: Negative for chest pain, palpitations, and edema, Respiratory: Negative for shortness of breath, cough, wheezing, and pleuritic chest pain, Abdomen/GI: Negative for abdominal pain, nausea, vomiting, diarrhea, and constipation, Back: Negative for injury and pain, MS/Extremity: Positive for left leg pain, swelling, drainage Skin: Left leg drainage and smell Neuro: Positive for general weakness Exam: 11:23 Constitutional: Thin, disheveled male, whimpering in pain Head/Face: Normocephalic, rn atraumatic. ENT: Dry mucous membranes Cardiovascular: Regular rate and rhythm. No pulse deficits. Respiratory: Mild tachypnea Abdomen/GI: Soft, non-tender Skin: Warm, large draining wound left posterior leg MS/ Extremity: Weak left dorsalis pedis pulse, foul smell with large draining and bleeding posterior left lower extremity wound from heel to popliteal fossa Neuro: Awake and alert, GCS 15 Vital Signs: 10:31 BP 109 / 60; Pulse 88; Resp 27; Temp 98.4; Pulse Ox 92% ; hb 11:00 BP 100 / 44; Pulse 91; Resp 26; Pulse Ox 93% ; sv 12:00 BP 107 / 62; Pulse 88; Resp 21; Pulse Ox 97% on 3 lpm NC; sv 12:45 BP 93 / 49; Pulse 85; Resp 16; Pulse Ox 100% on 3 lpm NC; sv 13:30 BP 97 / 51; Pulse 83; Resp 19; Pulse Ox 100% on 3 lpm NC; sv 14:15 BP 112 / 61; Pulse 85; Resp 20; Pulse Ox 100% on 3 lpm NC; sv 14:47 Weight 70 kg; Height 5 ft. 7 in. (170.18 cm); sv 14:47 Body Mass Index 24.17 (70.00 kg, 170.18 cm) sv MDM: 10:36 Patient medically screened. rn 11:23 Differential diagnosis: cellulitis. Data reviewed: vital signs, nurses notes, old rn medical records, lab test result(s), and as a result, I will admit patient. Counseling: I had a detailed discussion with the patient and/or guardian regarding: the historical points, exam findings, and any diagnostic results supporting the discharge/admit diagnosis, lab results, the need for further work-up and treatment in the hospital. Response to treatment: the patient's symptoms have mildly improved after treatment, and as a result, I will admit patient. Admission orders: after a detailed discussion of the patient's condition and case, the admit orders are written by me. ED course: Consulted with Dr. Ortiz, states place patient on antibiotics, will consult on patient and consent for amputation. Will admit to Dr. Tilley. 06/29 10:37 Order name: CBC with Diff rn 06/29 10:37 Order name: Basic Metabolic Panel rn 06/29 10:37 Order name: Protime (+inr) rn 06/29 10:37 Order name: Ptt, Activated rn 06/29 10:37 Order name: CBC with Automated Diff EDMS 06/29 10:38 Order name: Blood Culture Adult (2) rn 06/29 10:38 Order name: Procalcitonin rn 06/29 12:30 Order name: COVID-19 : Document "Date of Symptom Onset" if Symptomatic. sv 06/29 14:54 Order name: SARS-COV-2 RT PCR EDMS 06/29 17:45 Order name: Glucose, Ancillary Testing EDMS 06/29 18:01 Order name: Vancomycin Level Trough EDMS 06/29 23:20 Order name: Glucose, Ancillary Testing EDMS 06/30 04:06 Order name: CBC with Automated Diff EDMS 06/30 04:18 Order name: Comprehensive Metabolic Panel EDMS 06/29 10:37 Order name: IV Start; Complete Time: 11:30 rn 06/30 08:11 Order name: Glucose, Ancillary Testing EDMS 06/30 12:28 Order name: Glucose, Ancillary Testing EDMS Administered Medications: No medications were administered Disposition Summary: 06/29/21 11:30 Hospitalization Ordered Hospitalization Status: Inpatient Admission rn Provider: Vargas Tilley rn Condition: Stable rn Problem: an ongoing problem rn Symptoms: have improved rn Bed/Room Type: Standard rn Location: Telemetry/MedSurg (Inpatient)(06/30/21 13:32) [facility] Room Assignment: [facility](06/30/21 13:32) [facility] Diagnosis - Cellulitis of left lower limb rn - Peripheral vascular disease, unspecified rn - Dehydration rn - Adult failure to thrive rn Forms: - Medication Reconciliation Form rn - SBAR form rn Signatures: Dispatcher [employer] EDMinoo Harrison RN RN Randall Mane MD MD rn Aguilar, Jose, RN RN charlotte Corrections: (The following items were deleted from the chart) 14:26 11:30 Telemetry/MedSurg (Inpatient) rn 14:26 11:30 rn 06/30 13:06/29 14:26 [facility] ER HOLD sv ja1 06/30 13:06/29 14: ERHOLD- sv ja1
[2021-06-29 11:32] LABS: Absolute Lymphocytes (CBC) 2.2 K/uL (0.7-4.9); Basophils % 0.6 % (0-1.3); Hematocrit 28.9 % (39.6-49.0); Lymphocytes % 22.5 % (15.3-44.8); MPV 7.5 fL (7.6-11.3); RBC Red Blood Cell Count 3.07 M/uL (4.33-5.43)
[2021-06-29 11:36] LABS: Protime INR 1.64
[2021-06-29 11:45] LABS: Potassium 3.5 mmol/L (3.5-5.1)
--- NOTE | 2021-06-29 14:10 | P.HP ---
Certification for Inpatient Patient admitted to: Inpatient With expected LOS: >2 Midnights Patient will require the following post-hospital care: Home Health Services Practitioner: I am a practitioner with admitting privileges, knowledge of patient current condition, hospital course, and medical plan of care. Services: Services provided to patient in accordance with Admission requirements found in Title 42 Section 412.3 of the Code of Federal Regulations Patient History Date of Service: 06/29/21 Primary Care Provider: Brooks Reason for admission: pvd of the left leg History of Present Illness: Patient with a history of pvd, chf, htn , afib dm2 is here for worsening leg ulcer of the left leg. He has a history of peripheral ulcer the lft posterior lower leg as well as the left heal The patient also has a pressure ulcer on his back leg. The patient has been seeing Dr Ortiz for treatment He was supposed to have an amputation 2 days ago. However the patient did not come to the hospital He is here today with worsening pain in his leg. He has already had a right sided bka. Most likely the reason for his reluctance for another amputation. He has a lot of pain in his le. Allergies ciprofloxacin [From Cipro] Allergy (Verified 01/19/21 17:43) Itching morphine Allergy (Verified 10/05/20 13:36) Shortness of breath Home Medications: Alprazolam [Xanax] 1 mg PO TID PRN 01/24/21 Apixaban [Eliquis *] 2.5 mg PO BID 01/24/21 Ascorbic Acid [Vitamin C] 1,000 mg PO DAILY 01/24/21 Furosemide [Lasix] 80 mg PO PRN PRN 01/24/21 Metoprolol Succinate 12.5 mg PO DAILY 01/24/21 Simvastatin 20 mg PO DAILY 01/24/21 Trazodone HCl 100 mg PO BEDTIME 01/24/21 Vit A/Vit C/Vit E/Zinc/Copper [Preservision Areds Softgel] 1 cap PO DAILY 01/24/21 Gabapentin 1 tab PO DAILY 05/01/21 Mirtazapine 1 tab PO BEDTIME 05/01/21 Oxycodone HCl [Oxycontin] 1 tab PO Q8H 05/01/21 Docusate [Colace Cap*] 100 mg PO BID #60 cap 05/10/21 Glucerna Shake [Glucerna*] 237 ml PO TID #90 can 05/10/21 Antolin [Antolin*] 1 pkt PO BID #60 powd.pack 05/10/21 Medihoney [Medihoney Woundcare Gel*] 1 appl TOP DAILY #1 tube 05/10/21 - Past Medical/Surgical History Diabetic: Yes -: Chronic pain -: HTN -: CAD with prior stents -: Diabetes mellitus type 2 insulin-dependent -: Peripheral vascular disease -: Hyperlipidemia -: GERD -: Chronic ulcers, 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 Lives at home. - Family History Father -: Heart disease Mother -: Heart disease - Social History Alcohol use: No CD- Drugs: No Caffeine use: Yes Review of Systems 10-point ROS is otherwise unremarkable Musculoskeletal: Leg Pain (left) Integumentary: Other (venous ulcer on the left heal and posterior lower leg) Physical Examination - Physical Exam General: Alert, In no apparent distress HEENT: Atraumatic, PERRLA, Mucous membr. moist/pink, EOMI, Sclerae nonicteric Neck: Supple, 2+ carotid pulse no bruit, No LAD, Without JVD or thyroid abnormality Respiratory: Clear to auscultation bilaterally, Normal air movement Cardiovascular: Regular rate/rhythm, Normal S1 S2 Gastrointestinal: Normal bowel sounds, No tenderness Musculoskeletal: Tenderness (moderate severe pain on palpation of the left leg) Integumentary: No rashes Neurological: Normal gait, Normal speech, Normal strength at 5/5 x4 extr, Normal tone, Normal affect Lymphatics: No axilla or inguinal lymphadenopathy - Studies Laboratory Data (last 24 hrs) 06/29/21 11:00: PT 18.9 H, INR 1.64, APTT 32.1 06/29/21 11:00: Sodium 139, Potassium 3.5, BUN 38 H, Creatinine 0.93, Glucose 122 H 06/29/21 11:00: WBC 9.60, Hgb 9.5 L, Hct 28.9 L, Plt Count 268 Assessment and Plan - Problems (Diagnosis) (1) Peripheral vascular disease Current Visit: No Status: Chronic Plan: Will get him admitted. Have Dr Ortiz consulted for an amputation. (2) Stented coronary artery Current Visit: No Status: Chronic Plan: chronic will continue his home medications NO active chest pain (3) Diabetes mellitus Current Visit: No Status: Chronic Plan: will start him on a low dose sliding scale check an a1c (4) Decubitus ulcer of coccygeal region, stage 3 Current Visit: No Status: Chronic Plan: will consult wound care for dressing. Chronic problem. He has wound care for follow up Discharge Plan: Home Plan to discharge in: Greater than 2 days - Advance Directives Does patient have a Living Will: Yes Does patient have a Durable POA for Healthcare: Yes - Code Status/Comfort Care Code Status Assessed: No Physician Review: Patient Assessed, Agree with Above Assessment and Plan Critical Care: No Time Spent Managing Pts Care (In Minutes): 45
[2021-06-29 14:47] VITALS: BMI 24.1
[2021-06-29] MEDS ORDERED: GLUCAGON 1 MG/VIAL IM PRN (16:14)
[2021-06-29] MEDS ORDERED: D50W 25 GM/50 ML SYRINGE IV PRN (16:14)
[2021-06-29] MEDS: OXYCODONE HCL 80 MG PO SCH (16:15)
[2021-06-29] MEDS: INSULIN -REGULAR HUMAN 50 UNIT/0.5 ML ML SQ SCH ×2 (16:30→21:00)
[2021-06-29] MEDS ORDERED: HYDROMORPHONE HCL 1 MG/ML INJ IV PRN (16:35)
[2021-06-29] MEDS ORDERED: NA CHLORIDE 0.9% 1,000 ML ONE (16:56)
[2021-06-29] MEDS ORDERED: ERTAPENEM SODIUM 1 GM VIAL IVPB SCH (17:00)
[2021-06-29] MEDS ORDERED: ERTAPENEM NA 1 GM in NA CHLORIDE 0.9% 100 ML IVPB SCH (17:00)
[2021-06-29] MEDS: FENTANYL 50 MCG/PATCH TD SCH (17:00)
[2021-06-29] MEDS: NA CHLORIDE 0.9% 1,000 ML IV SCH (17:32)
[2021-06-29] MEDS: MIRTAZAPINE 15 MG TAB PO SCH (21:00)
[2021-06-29] MEDS: APIXABAN 2.5 MG TABLET PO SCH (21:00)
[2021-06-29] MEDS ORDERED: HYDROMORPHONE HCL 2 MG/ML inj ONE (22:43)
[2021-06-29] MEDS ORDERED: MIRTAZAPINE 15 MG TAB ONE (23:50)
[2021-06-29] MEDS ORDERED: ALPRAZOLAM 1 MG TABLET ONE (23:50)
[2021-06-29] MEDS: ALPRAZOLAM 1 MG TABLET PO PRN (23:51)
[2021-06-30] MEDS: OXYCODONE HCL 80 MG PO SCH ×2 (00:15→08:15)
[2021-06-30] MEDS ORDERED: HYDROMORPHONE HCL 1 MG/ML INJ IV ONE (00:57)
[2021-06-30] MEDS ORDERED: HYDROMORPHONE HCL 1 MG/ML INJ ONE ×2 (01:30→12:28)
[2021-06-30] MEDS ORDERED: HYDROMORPHONE HCL 2 MG/ML inj ONE ×2 (03:30→08:26)
[2021-06-30 03:58] LABS: Absolute Lymphocytes (CBC) 1.5 K/uL (0.7-4.9); Basophils % 0.6 % (0-1.3); Hematocrit 26.3 % (39.6-49.0); Lymphocytes % 19.2 % (15.3-44.8); MPV 7.3 fL (7.6-11.3); RBC Red Blood Cell Count 2.82 M/uL (4.33-5.43)
[2021-06-30] MEDS: HYDROMORPHONE HCL 1 MG/ML INJ IV PRN ×4 (04:09→21:25)
[2021-06-30 04:18] LABS: ALT/SGPT 12 U/L (12-78); AST/SGOT 12 U/L (15-37); Albumin 1.9 g/dL (3.4-5.0); Alkaline Phosphatase 78 U/L (45-117); BUN Blood Urea Nitrogen 32 mg/dL (7-18); Bicarbonate 35 mmol/L (21-32); Bilirubin Total 0.4 mg/dL (0.2-1.0); Glucose Level 119 mg/dL (74-106); Potassium 3.5 mmol/L (3.5-5.1); Protein, Total 5.7 g/dL (6.4-8.2); Sodium Level 140 mmol/L (136-145)
[2021-06-30] MEDS: INSULIN -REGULAR HUMAN 50 UNIT/0.5 ML ML SQ SCH ×4 (07:30→21:00)
[2021-06-30] MEDS: APIXABAN 2.5 MG TABLET PO SCH ×2 (09:00→21:19)
[2021-06-30] MEDS ORDERED: HOME MED 1 EA UNK (Gabapentin [Gabapentin] 600 MG Tablet) PO SCH (09:00)
[2021-06-30] MEDS: METOPROLOL XL 25 MG TAB PO SCH (09:00)
[2021-06-30] MEDS: HOME MED 1 EA UNK (Vit A/Vit C/Vit E/Zinc/Copper [Preservision Areds Softgel] Capsule) PO SCH (09:00)
[2021-06-30] MEDS: GABAPENTIN 300 MG CAP PO SCH (09:00)
[2021-06-30] MEDS ORDERED: GABAPENTIN 300 MG CAP ONE (09:44)
[2021-06-30] MEDS ORDERED: FENTANYL 25 MCG/PATCH TD SCH (10:45)
--- NOTE | 2021-06-30 10:48 | P.PN ---
Subjective Date of Service: 06/30/21 Primary Care Provider: Brooks Chief Complaint: pvd of the left leg Subjective: No new changes Review of Systems 10-point ROS is otherwise unremarkable Musculoskeletal: Leg Pain (left) Physical Examination - Vital Signs Temperature: 98.2 F Blood Pressure: 115/53 Pulse: 97 Respirations: 16 Pulse Ox (%): 95 - Physical Exam General: Alert, In no apparent distress HEENT: Atraumatic, PERRLA, EOMI Neck: Supple, JVD not distended Respiratory: Clear to auscultation bilaterally, Normal air movement Cardiovascular: Regular rate/rhythm, Normal S1 S2 Gastrointestinal: Normal bowel sounds, No tenderness Musculoskeletal: No tenderness Integumentary: No rashes Neurological: Normal speech, Normal tone, Normal affect Lymphatics: No axilla or inguinal lymphadenopathy - Studies Laboratory Data (last 24 hrs) 06/29/21 11:00: PT 18.9 H, INR 1.64, APTT 32.1 06/29/21 11:00: Sodium 139, Potassium 3.5, BUN 38 H, Creatinine 0.93, Glucose 122 H 06/29/21 11:00: WBC 9.60, Hgb 9.5 L, Hct 28.9 L, Plt Count 268 Microbiology Data (last 24 hrs): 06/29/21 11:00 Blood - Blood Anaerobic Blood Culture - Final Assessment & Plan - Problems (Diagnosis) (1) Peripheral vascular disease Current Visit: No Status: Chronic Plan: Will get him admitted. Have Dr Ortiz consulted for an amputation. 06/30 Pain not well controlled. Will increase his fentanyl to 75mcg Discussed antibiotics with Pharmacy. Based on his last cultures. Zosyn would be a good choice for this patient. Will change the patients antibiotics Discussed with Dr. Ortiz. Very non compliant patient with multiple comorbidities. He would not like to do this on the weekend with half staff. This would be a pertinent condsideration. His risk of VT during surgery is 3.8% per the geriatric post operative risk scale. His numbers via the Whitt criteria for 30 day VT is 2.78%, 4.07% mortality. He did have a Lexiscan done in April. Is safe as we can make him to go to surgery. (2) Stented coronary artery Current Visit: No Status: Chronic Plan: chronic will continue his home medications NO active chest pain (3) Diabetes mellitus Current Visit: No Status: Chronic Plan: will start him on a low dose sliding scale check an a1c (4) Decubitus ulcer of coccygeal region, stage 3 Current Visit: No Status: Chronic Plan: will consult wound care for dressing. Chronic problem. He has wound care for follow up Discharge Plan: Home Plan to discharge in: Greater than 2 days - Code Status/Comfort Care Code Status Assessed: No Physician Review: Patient Assessed, Agree with Above Assessment and Plan Critical Care: No Time Spent Managing Pts Care (In Minutes): 45
[2021-06-30] MEDS ORDERED: FENTANYL 25 MCG/PATCH TD ONE (11:48)
[2021-06-30] MEDS: NA CHLORIDE 0.9% 1,000 ML IV SCH (13:00)
[2021-06-30] MEDS ORDERED: NA CHLORIDE 0.9% 1,000 ML ONE (13:32)
[2021-06-30] MEDS: PIPER/TAZO/NS 3.375gm 3.375 GM/100 ML BAG IVPB SCH (17:00)
[2021-06-30] MEDS: MIRTAZAPINE 15 MG TAB PO SCH (21:19)
[2021-07-01] MEDS: PIPER/TAZO/NS 3.375gm 3.375 GM/100 ML BAG IVPB SCH ×3 (01:00→16:43)
[2021-07-01] MEDS ORDERED: NA CHLORIDE 0.9% 100 ML ONE (01:11)
[2021-07-01] MEDS ORDERED: PIPERACIL/TAZO 3.375 GM VIAL IV ONE (01:11)
[2021-07-01] MEDS: INSULIN -REGULAR HUMAN 50 UNIT/0.5 ML ML SQ SCH ×4 (07:30→20:28)
[2021-07-01 07:35] LABS: Absolute Lymphocytes (CBC) 1.1 K/uL (0.7-4.9); Basophils % 0.7 % (0-1.3); Hematocrit 28.3 % (39.6-49.0); Lymphocytes % 14.2 % (15.3-44.8); MPV 7.4 fL (7.6-11.3); RBC Red Blood Cell Count 3.01 M/uL (4.33-5.43)
[2021-07-01 08:01] LABS: Bilirubin Total 0.4 mg/dL (0.2-1.0); Potassium 3.9 mmol/L (3.5-5.1)
[2021-07-01] MEDS: NA CHLORIDE 0.9% 1,000 ML IV SCH (09:00)
[2021-07-01] MEDS: HOME MED 1 EA UNK (Vit A/Vit C/Vit E/Zinc/Copper [Preservision Areds Softgel] Capsule) PO SCH (09:00)
--- NOTE | 2021-07-01 09:43 | P.PN ---
Subjective Date of Service: 07/01/21 Primary Care Provider: Brooks Chief Complaint: pvd of the left leg Subjective: No new changes Review of Systems 10-point ROS is otherwise unremarkable Musculoskeletal: Leg Pain Physical Examination - Vital Signs Temperature: 97.3 F Blood Pressure: 122/58 Pulse: 88 Respirations: 18 Pulse Ox (%): 99 - Physical Exam General: Alert, In no apparent distress HEENT: Atraumatic, PERRLA, EOMI Neck: Supple, JVD not distended Respiratory: Clear to auscultation bilaterally, Normal air movement Cardiovascular: Regular rate/rhythm, Normal S1 S2 Gastrointestinal: Normal bowel sounds, No tenderness Musculoskeletal: No tenderness Integumentary: No rashes Neurological: Normal speech, Normal tone, Normal affect Lymphatics: No axilla or inguinal lymphadenopathy - Studies Microbiology Data (last 24 hrs): 06/29/21 11:00 Blood - Blood Anaerobic Blood Culture - Final Assessment & Plan - Problems (Diagnosis) (1) Peripheral vascular disease Current Visit: No Status: Chronic Plan: Will get him admitted. Have Dr Ortiz consulted for an amputation. 07/01 fentanyl to 75mcg plans for surgery this Saturday. Have discussed consent with the patient. states no one told her he need amputation this past Saturday. As ems was called and patient was directed to the ER this does not seem very likely. Patient asking to go home. Which would be unwise. He is a high risk of seps is/osteomyelitis without fluids and antibiotics. Going home at this point could be fatal His risk of MO during surgery is 3.8% per the geriatric post operative risk scale. His numbers via the Whitt criteria for 30 day MO is 2.78%, 4.07% mortality. He did have a Lexiscan done in April. Is safe as we can make him to go to surgery. (2) Stented coronary artery Current Visit: No Status: Chronic Plan: chronic will continue his home medications NO active chest pain (3) Diabetes mellitus Current Visit: No Status: Chronic Plan: will start him on a low dose sliding scale check an a1c (4) Decubitus ulcer of coccygeal region, stage 3 Current Visit: No Status: Chronic Plan: will consult wound care for dressing. Chronic problem. He has wound care for follow up Discharge Plan: Home - Code Status/Comfort Care Code Status Assessed: No Physician Review: Patient Assessed, Agree with Above Assessment and Plan Critical Care: No Time Spent Managing Pts Care (In Minutes): 25
[2021-07-01] MEDS: APIXABAN 2.5 MG TABLET PO SCH ×2 (11:07→20:27)
[2021-07-01] MEDS: GABAPENTIN 300 MG CAP PO SCH (11:07)
[2021-07-01] MEDS: METOPROLOL XL 25 MG TAB PO SCH (11:07)
[2021-07-01] MEDS: HYDROMORPHONE HCL 1 MG/ML INJ IV PRN ×2 (11:08→20:28)
[2021-07-01] MEDS: JUVEN PACKET PO SCH (20:27)
[2021-07-01] MEDS: MIRTAZAPINE 15 MG TAB PO SCH (20:27)
[2021-07-02] MEDS: PIPER/TAZO/NS 3.375gm 3.375 GM/100 ML BAG IVPB SCH ×3 (00:32→15:41)
[2021-07-02] MEDS: HYDROMORPHONE HCL 1 MG/ML INJ IV PRN ×2 (02:35→10:10)
[2021-07-02] MEDS: NA CHLORIDE 0.9% 1,000 ML IV SCH (05:00)
[2021-07-02 07:07] LABS: Absolute Lymphocytes (CBC) 1.7 K/uL (0.7-4.9); Basophils % 0.9 % (0-1.3); Hematocrit 26.1 % (39.6-49.0); Lymphocytes % 26.8 % (15.3-44.8); MPV 7.2 fL (7.6-11.3); RBC Red Blood Cell Count 2.82 M/uL (4.33-5.43)
[2021-07-02 07:18] LABS: ALT/SGPT 11 U/L (12-78); AST/SGOT 13 U/L (15-37); Alkaline Phosphatase 76 U/L (45-117); BUN Blood Urea Nitrogen 17 mg/dL (7-18); Bicarbonate 34 mmol/L (21-32); Bilirubin Total 0.5 mg/dL (0.2-1.0); Glucose Level 105 mg/dL (74-106); Potassium 3.6 mmol/L (3.5-5.1); Protein, Total 5.7 g/dL (6.4-8.2); Sodium Level 144 mmol/L (136-145)
[2021-07-02] MEDS: INSULIN -REGULAR HUMAN 50 UNIT/0.5 ML ML SQ SCH ×4 (07:30→20:51)
[2021-07-02] MEDS: FENTANYL 50 MCG/PATCH TD SCH (08:06)
[2021-07-02] MEDS: METOPROLOL XL 25 MG TAB PO SCH (08:06)
[2021-07-02] MEDS: GABAPENTIN 300 MG CAP PO SCH (08:06)
[2021-07-02] MEDS: JUVEN PACKET PO SCH ×2 (08:09→20:50)
[2021-07-02] MEDS: APIXABAN 2.5 MG TABLET PO SCH ×2 (08:09→20:49)
[2021-07-02] MEDS: HOME MED 1 EA UNK (Vit A/Vit C/Vit E/Zinc/Copper [Preservision Areds Softgel] Capsule) PO SCH (09:00)
--- NOTE | 2021-07-02 11:36 | P.PN ---
Subjective Date of Service: 07/02/21 Primary Care Provider: Brooks Chief Complaint: pvd of the left leg Subjective: No new changes Review of Systems 10-point ROS is otherwise unremarkable Musculoskeletal: Leg Pain Physical Examination - Vital Signs Temperature: 97.8 F Blood Pressure: 114/55 Pulse: 82 Respirations: 18 Pulse Ox (%): 98 - Physical Exam General: Alert, In no apparent distress HEENT: Atraumatic, PERRLA, EOMI Neck: Supple, JVD not distended Respiratory: Clear to auscultation bilaterally, Normal air movement Cardiovascular: Regular rate/rhythm, Normal S1 S2 Gastrointestinal: Normal bowel sounds, No tenderness Musculoskeletal: No tenderness Integumentary: No rashes Neurological: Normal speech, Normal tone, Normal affect Lymphatics: No axilla or inguinal lymphadenopathy Assessment & Plan - Problems (Diagnosis) (1) Peripheral vascular disease Current Visit: No Status: Chronic Plan: Will get him admitted. Have Dr Ortiz consulted for an amputation. 07/01 fentanyl to 75mcg plans for surgery this Saturday. Patient still wishes to go home due to boredom and not liking the hosptial bed. Have told him he needs fluids and antibiotics. With out these he will have high chance of sepsis and . This has been explained to him before and most likely have to be explained to him again. His risk of PA during surgery is 3.8% per the geriatric post operative risk scale. His numbers via the Whitt criteria for 30 day PA is 2.78%, 4.07% mortality. He did have a Lexiscan done in April. Is reasonable to proceed to surgery. (2) Stented coronary artery Current Visit: No Status: Chronic Plan: chronic will continue his home medications NO active chest pain (3) Diabetes mellitus Current Visit: No Status: Chronic Plan: will start him on a low dose sliding scale check an a1c (4) Decubitus ulcer of coccygeal region, stage 3 Current Visit: No Status: Chronic Plan: will consult wound care for dressing. Chronic problem. He has wound care for follow up Physician Review: Patient Assessed, Agree with Above Assessment and Plan
[2021-07-02] MEDS: FENTANYL 25 MCG/PATCH TD SCH (15:41)
[2021-07-02] MEDS: D5 0.45 NS 1,000 ML IV SCH (15:41)
[2021-07-02] MEDS: MIRTAZAPINE 15 MG TAB PO SCH (20:50)
[2021-07-03] MEDS: PIPER/TAZO/NS 3.375gm 3.375 GM/100 ML BAG IVPB SCH ×3 (00:40→16:44)
[2021-07-03] MEDS: HYDROMORPHONE HCL 1 MG/ML INJ IV PRN ×4 (00:47→21:36)
[2021-07-03] MEDS: D5 0.45 NS 1,000 ML IV SCH (04:40)
[2021-07-03] MEDS: INSULIN -REGULAR HUMAN 50 UNIT/0.5 ML ML SQ SCH ×4 (07:30→21:35)
[2021-07-03] MEDS: JUVEN PACKET PO SCH ×2 (07:58→20:36)
[2021-07-03] MEDS: GABAPENTIN 300 MG CAP PO SCH (07:58)
[2021-07-03] MEDS: APIXABAN 2.5 MG TABLET PO SCH ×2 (07:58→20:35)
[2021-07-03] MEDS: METOPROLOL XL 25 MG TAB PO SCH (08:18)
[2021-07-03] MEDS: HOME MED 1 EA UNK (Vit A/Vit C/Vit E/Zinc/Copper [Preservision Areds Softgel] Capsule) PO SCH (08:56)
--- NOTE | 2021-07-03 09:40 | P.PN ---
Subjective Date of Service: 07/03/21 Primary Care Provider: Brooks Chief Complaint: pvd of the left leg Subjective: No new changes Review of Systems 10-point ROS is otherwise unremarkable Musculoskeletal: Leg Pain Physical Examination - Vital Signs Temperature: 97.2 F Blood Pressure: 124/67 Pulse: 85 Respirations: 18 Pulse Ox (%): 98 - Physical Exam General: Alert, In no apparent distress HEENT: Atraumatic, PERRLA, EOMI Neck: Supple, JVD not distended Respiratory: Clear to auscultation bilaterally, Normal air movement Cardiovascular: Regular rate/rhythm, Normal S1 S2 Gastrointestinal: Normal bowel sounds, No tenderness Musculoskeletal: No tenderness Integumentary: No rashes Neurological: Normal speech, Normal tone, Normal affect Lymphatics: No axilla or inguinal lymphadenopathy Assessment & Plan - Problems (Diagnosis) (1) Peripheral vascular disease Current Visit: No Status: Chronic Plan: Will get him admitted. Have Dr Ortiz consulted for an amputation. 07/02 fentanyl to 75mcg plans for surgery this Saturday. Dr. Ortiz in the room. Plans for surgery and local anesthesi His risk of TX during surgery is 3.8% per the geriatric post operative risk scale. His numbers via the Whitt criteria for 30 day TX is 2.78%, 4.07% mortality. He did have a Lexiscan done in April. Is reasonable to proceed to surgery. (2) Stented coronary artery Current Visit: No Status: Chronic Plan: chronic will continue his home medications NO active chest pain (3) Diabetes mellitus Current Visit: No Status: Chronic Plan: will start him on a low dose sliding scale check an a1c (4) Decubitus ulcer of coccygeal region, stage 3 Current Visit: No Status: Chronic Plan: will consult wound care for dressing. Chronic problem. He has wound care for follow up Discharge Plan: Home Plan to discharge in: 24 Hours - Code Status/Comfort Care Code Status Assessed: No Physician Review: Patient Assessed, Agree with Above Assessment and Plan Critical Care: No Time Spent Managing Pts Care (In Minutes): 25
[2021-07-03] MEDS ORDERED: NA CHLORIDE 0.9% 1,000 ML ONE (10:02)
[2021-07-03] MEDS ORDERED: NS 0.9% VIAL 20 ML ONE (10:56)
[2021-07-03] MEDS ORDERED: dexAMETHasone 10 MG/ML VIAL ONE (10:56)
[2021-07-03] MEDS ORDERED: BUPIVACAINE 0.25% PF 10 ML VIAL ONE (10:57)
[2021-07-03] MEDS ORDERED: MIDAZOLAM HCL 2 MG/2 ML INJ ONE (10:57)
[2021-07-03] MEDS ORDERED: FENTANYL CITR 100 MCG/2 ML ONE (10:58)
--- NOTE | 2021-07-03 11:01 | CON ---
Date of Consultation: 07/03/2021 Diagnosis: Gangrenous changes in the left lower extremity. History Of Present Illness: This is the case of a male, known by us due to severe peripheral vascula r disease, [facility], recent amputation on the right above-knee, do ing well from that one, but in the left side, he has been dealing with an open wound just similar to the right side, but he was not ready to the amputation last time. He gave it to try, but it is still progressing and getting necrotic, very painful, and he is ready to go for above-knee amputation. He was admitted over the weekend in the hospital, started on optimization with antibiotics and trying t o keep the infection down in the left lower extremity, so we can go an above-knee. The patient has n o previous surgeries in that knee. The patient is ready to sign a consent today. We discussed the c ase with the patient and the patient's again and he has finally decided he is going to go for th e above-knee amputation. Consent will be obtained. Allergies: CIPRO, MORPHINE. Medications: Reviewed including Eliquis, Glucerna. 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 Social History: He does not smoke. He does not drink alcohol. Review of Systems: See H and P. No shortness of breath. No chest pain. No fever. Ten points otherwise unremarkable. Physical Examination: General: The patient is awake, alert. HEENT: Pupils equal, reactive. Anicteric. Neck: Supple. Chest: Clear. Abdomen: Soft and depressible. Extremities: The patient has a well-healed right above-knee amputation. The area looks fantastic. Now, the left lower extremity has a different story. There is fascia, bone and tendon exposed. Ther e is necrotic tissue present just below-knee all the way down to the foot. Laboratory Data: WBC count is 6 with hemoglobin of 8.7 and platelets of 222. INR is 1.64. Chloride is 108. Creatinine is 0.7. Assessment: Gangrenous changes and gangrene of the left leg. Benefits, alternatives, and risks of l eft above-knee amputation, AKA fully explained, which include, but not limited to infection, bleeding , damage to adjacent structures, anesthesia complication, nonhealing wound, PR, and even . He a lso understands this may not relieve any symptoms. He might need more than one surgical intervention . He understood and he will sign a consent. OR was informed. JAMA/JEFERSON Voice ID: [id number] Report ID: [id number]
[2021-07-03] MEDS ORDERED: propofoL 200 MG/20 ML VIAL IV ONE (11:41)
[2021-07-03] MEDS ORDERED: LIDOCAINE 2% MPF 5 ML VIAL ONE (11:41)
--- NOTE | 2021-07-03 12:27 | P.BOP ---
Preoperative diagnosis: Left leg gangrene Postoperative diagnosis: same Primary procedure: Alex SMITH Ribbon Cutter: Brandy Monroe (Buck) Estimated blood loss: <100cc Specimen: leg Findings: as above Anesthesia: General Complications: None Drain(s): GARRICK drain Transferred to: Recovery Room Condition: Good
[2021-07-03] MEDS ORDERED: HYDROMORPHONE HCL 1 MG/ML INJ ONE (12:31)
[2021-07-03] MEDS ORDERED: NS 0.9% VIAL 10 ML ONE (12:43)
[2021-07-03] MEDS ORDERED: BUPIVACAINE 0.5% PF 10 ML VIAL ONE (12:48)
[2021-07-03] MEDS: HYDROMORPHONE HCL 1 MG/ML INJ ONE ×7 (12:51→13:21)
[2021-07-03] MEDS: MIDAZOLAM HCL 2 MG/2 ML INJ ONE ×2 (13:40→13:50)
[2021-07-03] MEDS: MIRTAZAPINE 15 MG TAB PO SCH (20:35)
[2021-07-04] MEDS: PIPER/TAZO/NS 3.375gm 3.375 GM/100 ML BAG IVPB SCH ×3 (00:48→17:08)
[2021-07-04] MEDS: D5 0.45 NS 1,000 ML IV SCH ×2 (00:50→19:00)
[2021-07-04] MEDS: HYDROMORPHONE HCL 1 MG/ML INJ IV PRN ×4 (04:14→20:05)
[2021-07-04] MEDS: APIXABAN 2.5 MG TABLET PO SCH ×2 (08:57→20:05)
[2021-07-04] MEDS: INSULIN -REGULAR HUMAN 50 UNIT/0.5 ML ML SQ SCH ×4 (08:57→20:52)
[2021-07-04] MEDS: GABAPENTIN 300 MG CAP PO SCH (08:57)
[2021-07-04] MEDS: JUVEN PACKET PO SCH ×2 (09:00→20:52)
[2021-07-04] MEDS: METOPROLOL XL 25 MG TAB PO SCH (09:00)
[2021-07-04] MEDS: HOME MED 1 EA UNK (Vit A/Vit C/Vit E/Zinc/Copper [Preservision Areds Softgel] Capsule) PO SCH (09:00)
[2021-07-04] MEDS: ALPRAZOLAM 1 MG TABLET PO PRN (11:07)
--- NOTE | 2021-07-04 14:18 | P.PN ---
Subjective Date of Service: 07/04/21 Primary Care Provider: Brooks Chief Complaint: pvd of the left leg Subjective: New changes (Patient has had aka of the left leg) patient is resting comfortable. He had his dilaudid increased Review of Systems 10-point ROS is otherwise unremarkable General: Other (pain ) Physical Examination - Vital Signs Temperature: 98.4 F Blood Pressure: 123/55 Pulse: 86 Respirations: 18 Pulse Ox (%): 98 - Physical Exam General: Alert, In no apparent distress HEENT: Atraumatic, PERRLA, EOMI Neck: Supple, JVD not distended Respiratory: Clear to auscultation bilaterally, Normal air movement Cardiovascular: Regular rate/rhythm, Normal S1 S2 Gastrointestinal: Normal bowel sounds, No tenderness Musculoskeletal: No tenderness Integumentary: No rashes Neurological: Normal speech, Normal tone, Normal affect Lymphatics: No axilla or inguinal lymphadenopathy - Studies Microbiology Data (last 24 hrs): 06/29/21 11:00 Blood - Blood Aerobic Blood Culture - Final No growth in 5 days. 06/29/21 11:00 Blood - Blood Anaerobic Blood Culture - Final Assessment & Plan - Problems (Diagnosis) (1) Peripheral vascular disease Current Visit: No Status: Chronic Plan: Will get him admitted. Have Dr Ortiz consulted for an amputation. 07/04 Dr Ortiz is managing the pain Will consult licensed clinical social worker for discharge planning. (2) Stented coronary artery Current Visit: No Status: Chronic Plan: chronic will continue his home medications NO active chest pain (3) Diabetes mellitus Current Visit: No Status: Chronic Plan: will start him on a low dose sliding scale check an a1c (4) Decubitus ulcer of coccygeal region, stage 3 Current Visit: No Status: Chronic Plan: will consult wound care for dressing. Chronic problem. He has wound care for follow up Discharge Plan: LTAC Plan to discharge in: 72 Hours - Code Status/Comfort Care Code Status Assessed: No Physician Review: Patient Assessed, Agree with Above Assessment and Plan Critical Care: No Time Spent Managing Pts Care (In Minutes): 20
[2021-07-04] MEDS: MIRTAZAPINE 15 MG TAB PO SCH (20:05)
[2021-07-05] MEDS: HYDROMORPHONE HCL 1 MG/ML INJ IV PRN ×4 (00:18→22:32)
[2021-07-05] MEDS: PIPER/TAZO/NS 3.375gm 3.375 GM/100 ML BAG IVPB SCH ×3 (00:19→17:17)
[2021-07-05] MEDS: ALPRAZOLAM 1 MG TABLET PO PRN (01:17)
[2021-07-05] MEDS: D5 0.45 NS 1,000 ML IV SCH ×3 (06:40→22:35)
[2021-07-05] MEDS: INSULIN -REGULAR HUMAN 50 UNIT/0.5 ML ML SQ SCH ×4 (07:30→21:00)
[2021-07-05] MEDS: HOME MED 1 EA UNK (Vit A/Vit C/Vit E/Zinc/Copper [Preservision Areds Softgel] Capsule) PO SCH (08:33)
[2021-07-05] MEDS: APIXABAN 2.5 MG TABLET PO SCH ×2 (08:52→22:32)
[2021-07-05] MEDS: FENTANYL 25 MCG/PATCH TD SCH (08:52)
[2021-07-05] MEDS: JUVEN PACKET PO SCH ×2 (08:52→21:00)
[2021-07-05] MEDS: FENTANYL 50 MCG/PATCH TD SCH (08:52)
[2021-07-05] MEDS: MEDIHONEY 44 ML TOPICAL TUBE TOP SCH (08:52)
[2021-07-05] MEDS: GABAPENTIN 300 MG CAP PO SCH (08:53)
[2021-07-05] MEDS: METOPROLOL XL 25 MG TAB PO SCH (08:53)
--- NOTE | 2021-07-05 11:54 | P.PN ---
Subjective Date of Service: 07/05/21 Primary Care Provider: Brooks Chief Complaint: pvd of the left leg Subjective: No new changes patient is resting comfortable. He had his dilaudid increased Review of Systems 10-point ROS is otherwise unremarkable Gastrointestinal: Diarrhea Physical Examination - Vital Signs Temperature: 97.1 F Blood Pressure: 121/58 Pulse: 86 Respirations: 16 Pulse Ox (%): 100 - Physical Exam General: Alert, In no apparent distress HEENT: Atraumatic, PERRLA, EOMI Neck: Supple, JVD not distended Respiratory: Clear to auscultation bilaterally, Normal air movement Cardiovascular: Regular rate/rhythm, Normal S1 S2 Gastrointestinal: Normal bowel sounds, No tenderness Musculoskeletal: No tenderness Integumentary: No rashes Neurological: Normal speech, Normal tone, Normal affect Lymphatics: No axilla or inguinal lymphadenopathy - Studies Microbiology Data (last 24 hrs): 06/29/21 11:00 Blood - Blood Aerobic Blood Culture - Final No growth in 5 days. 06/29/21 11:00 Blood - Blood Anaerobic Blood Culture - Final Assessment & Plan - Problems (Diagnosis) (1) Peripheral vascular disease Current Visit: No Status: Chronic Plan: Will get him admitted. Have Dr Ortiz consulted for an amputation. 07/05 Family does not want an inpatient rehab. they are not ready for hospice. Will discharge home with home health when Dr. Ortiz feels he is ready. Have spoken with Dr. Evelin Barrios (2) Stented coronary artery Current Visit: No Status: Chronic Plan: chronic will continue his home medications NO active chest pain (3) Diabetes mellitus Current Visit: No Status: Chronic Plan: will start him on a low dose sliding scale check an a1c (4) Decubitus ulcer of coccygeal region, stage 3 Current Visit: No Status: Chronic Plan: will consult wound care for dressing. Chronic problem. He has wound care for follow up Discharge Plan: Home - Code Status/Comfort Care Code Status Assessed: No Physician Review: Patient Assessed, Agree with Above Assessment and Plan Critical Care: No Time Spent Managing Pts Care (In Minutes): 25
[2021-07-05] MEDS: LOPERAMIDE HCL 2 MG CAPSULE PO PRN ×2 (13:00→22:32)
[2021-07-05] MEDS: MIRTAZAPINE 15 MG TAB PO SCH (22:32)
[2021-07-06] MEDS: PIPER/TAZO/NS 3.375gm 3.375 GM/100 ML BAG IVPB SCH ×3 (02:16→17:00)
[2021-07-06 05:12] VITALS: O2SAT 98
[2021-07-06] MEDS: INSULIN -REGULAR HUMAN 50 UNIT/0.5 ML ML SQ SCH ×3 (07:30→16:30)
[2021-07-06] MEDS: HOME MED 1 EA UNK (Vit A/Vit C/Vit E/Zinc/Copper [Preservision Areds Softgel] Capsule) PO SCH (08:49)
[2021-07-06] MEDS: JUVEN PACKET PO SCH (09:00)
[2021-07-06] MEDS: D5 0.45 NS 1,000 ML IV SCH (09:01)
[2021-07-06] MEDS: APIXABAN 2.5 MG TABLET PO SCH (09:01)
[2021-07-06] MEDS: GABAPENTIN 300 MG CAP PO SCH (09:02)
[2021-07-06] MEDS: METOPROLOL XL 25 MG TAB PO SCH (09:02)
[2021-07-06] MEDS: MEDIHONEY 44 ML TOPICAL TUBE TOP SCH (09:02)
[2021-07-06] MEDS: HYDROMORPHONE HCL 1 MG/ML INJ IV PRN (09:05)
[2021-07-06] MEDS: LOPERAMIDE HCL 2 MG CAPSULE PO PRN (09:09)
--- NOTE | 2021-07-06 12:35 | P.DS ---
Admission Date: 06/29/21 Discharge Date: 07/06/21 Primary Care Provider: Brooks Disposition: ROUTINE DISCHARGE Discharge Condition: FAIR Reason for Admission: pvd of the left leg - Problems (1) Peripheral vascular disease Current Visit: No Status: Chronic (2) Stented coronary artery Current Visit: No Status: Chronic (3) Diabetes mellitus Current Visit: No Status: Chronic (4) Decubitus ulcer of coccygeal region, stage 3 Current Visit: No Status: Chronic Brief History of Present Illness: Patient with a history of pvd, chf, htn , afib dm2 is here for worsening leg ulcer of the left leg. He has a history of peripheral ulcer the lft posterior lower leg as well as the left heal The patient also has a pressure ulcer on his back leg. The patient has been seeing Dr Ortiz for treatment He was supposed to have an amputation 2 days ago. However the patient did not come to the hospital He is here today with worsening pain in his leg. He has already had a right sided bka. Most likely the reason for his reluctance for another amputation. He has a lot of pain in his le. Hospital Course: Patient was admitted for worsening PVD. Had an AKA of the left leg. He did not wish to go to a rehab facility. did not want hospice. He is overall a poor prognosis. Patient and his wanted to go home with home health. Discussed him with Dr. Ortiz. Will send him home. He has a PCP in [place]. He should follow up with Dr. Ortiz in the wound care center this coming Saturday. Thank you for allowing me to take part in his care. Vital Signs/Physical Exam: Temp Pulse Resp BP Pulse Ox 98.5 F 96 H 20 102/48 L 96 07/06/21 08:00 07/06/21 08:00 07/06/21 08:00 07/06/21 08:00 07/06/21 08:00 General: Alert, In no apparent distress HEENT: Atraumatic, PERRLA, EOMI Neck: Supple, JVD not distended Respiratory: Clear to auscultation bilaterally, Normal air movement Cardiovascular: Regular rate/rhythm, Normal S1 S2 Gastrointestinal: Normal bowel sounds, No tenderness Musculoskeletal: No tenderness Integumentary: No rashes Neurological: Normal speech, Normal tone, Normal affect Lymphatics: No axilla or inguinal lymphadenopathy Laboratory Data at Discharge: WBC 6.20 K/uL (4.3-10.9) D 07/02/21 06:42 Hgb 8.7 g/dL (13.6-17.9) L 07/02/21 06:42 Hct 26.1 % (39.6-49.0) L 07/02/21 06:42 Plt Count 222 K/uL (152-406) 07/02/21 06:42 PT 18.9 SECONDS (9.5-12.5) H 06/29/21 11:00 INR 1.64 06/29/21 11:00 APTT 32.1 SECONDS (24.3-36.9) 06/29/21 11:00 Sodium 144 mmol/L (136-145) 07/02/21 06:42 Potassium 3.6 mmol/L (3.5-5.1) 07/02/21 06:42 BUN 17 mg/dL (7-18) 07/02/21 06:42 Creatinine 0.70 mg/dL (0.55-1.3) 07/02/21 06:42 Glucose 105 mg/dL (74-106) 07/02/21 06:42 Total Bilirubin 0.5 mg/dL (0.2-1.0) 07/02/21 06:42 AST 13 U/L (15-37) L 07/02/21 06:42 ALT 11 U/L (12-78) L 07/02/21 06:42 Alkaline Phosphatase 76 U/L (45-117) 07/02/21 06:42 Home Medications: RX: Alprazolam [Xanax] 1 mg PO TID PRN 01/24/21 RX: Apixaban [Eliquis *] 2.5 mg PO BID 01/24/21 RX: Metoprolol Succinate 12.5 mg PO DAILY 01/24/21 RX: Simvastatin 20 mg PO DAILY 01/24/21 RX: Trazodone HCl 100 mg PO BEDTIME 01/24/21 RX: Vit A/Vit C/Vit E/Zinc/Copper [Preservision Areds Softgel] 1 cap PO DAILY 01/24/21 RX: Gabapentin 1 tab PO DAILY 05/01/21 RX: Mirtazapine 1 tab PO BEDTIME 05/01/21 RX: Oxycodone HCl [Oxycontin] 1 tab PO Q8H 05/01/21 RX: Glucerna Shake [Glucerna*] 237 ml PO TID #90 can 05/10/21 Physician Discharge Instructions: patient to keep daily records of the surgical drain in the left leg Diet: AHA Activity: Fall precautions Followup: VelasquezOTAMINATA [Primary Care Provider] - Reji Ortiz MD [ACTIVE - CAN ADMIT] - 07/11/21 (follow up in the wound care center this coming saturday) Time spent managing pt's care (in minutes): 25
[2021-07-06 15:37] VITALS: BP 104/46; TEMP 98.6
[2021-07-06] MEDS ORDERED: HYDROMORPHONE HCL 1 MG/ML INJ IV PRN (16:00)
--- NOTE | 2021-07-31 11:35 | OP ---
Date of Procedure: 07/03/2021 Surgeon: Reji Ortiz MD Furniture Manager: Brandy Tinoco. Preoperative Diagnosis: Left leg gangrene. Postoperative Diagnosis: Left leg gangrene. Procedure: Left above-knee amputation. Estimated Blood Loss: Less than 100 mL. Specimen: Leg. Findings: Leg gangrene. Anesthesia: General plus local. Drains: GARRICK #10. Indication: This is the case of a male with a history of severe peripheral vascular disease. Not to o long ago, he has an amputation of the opposite side. Now, he comes with gangrene on the left leg. Benefits, alternatives, and risks of left above-knee amputation were fully explained, which include, but not limited to infection, bleeding, damage to adjacent structures, anesthesia complication, fail ure of [place], [place], and even . He also understands this may not relieve any symptoms. He might n eed more than one surgical intervention. He understood, signed a consent. Procedure In Detail: The patient was brought to the operating room, placed in supine position. Anes thesia was done without complication. Left leg was prepped and draped in usual sterile fashion. A t mack-out was called. Anterior and posterior skin flaps were carefully outlined with a marking pen. T he incision was then done until muscular fascia was identified. Muscle groups over the anterior and medial thigh were divided carefully with Bovie cauterizer at the level of incision. The neurovascula r bundle was identified in the medial aspect of the thigh. The popliteal artery and veins were isola shannen and suture ligated. The sciatic nerve was also full ligated and allowed to retract after divisio n. The posterior thigh muscles were carefully divided. The periosteum of the bone was incised and e levated approximately 5 cm of the femur. The femur was transected with a Gigli saw and smoothed with a file. Profuse irrigation was done. GARRICK drain was left in that area exiting through one of the tro car sites. Then, we proceeded to close the area with #1 Vicryl, approximated the fascia of the muscl e. Then, after that, we put ismael on the skin. The GARRICK drain was secured in place with nylon. The patient tolerated the procedure well. The area was covered with sterile dressings. Sponge count an d instrument counts correct. The patient was sent to recovery in stable condition. HM/MODL Voice ID: [id number] Report ID: [id number]
== END 2021-07-06 17:00 | disposition home health service (06) | DRG 239 ==
LOC: ER 10:28 → ERHOLD 13:06 → 2ND 06-30 14:26
PROVIDERS: ADMIT Internal Medicine; ATTEND Internal Medicine
PROC: 0Y6D0Z2 Detachment at Left Upper Leg, Mid, Open Approach (ICD-10-PCS; principal; 2021-07-03 10:45)
DX: E11.52 Type 2 diabetes mellitus with diabetic peripheral angiopathy with gangrene (principal); L89.153 Pressure ulcer of sacral region, stage 3; I96 Gangrene, not elsewhere classified; I48.91 Unspecified atrial fibrillation; I25.10 Atherosclerotic heart disease of native coronary artery without angina pectoris; I10 Essential (primary) hypertension; Z96.651 Presence of right artificial knee joint; Z89.611 Acquired absence of right leg above knee; Z95.5 Presence of coronary angioplasty implant and graft; Z20.822 Contact with and (suspected) exposure to COVID-19
CPT/HCPCS: 36415; 80048; 80053; 80202; 82947; 84145; 85025; 85610; 85730; 87040; 88307; 88311; 97161; 99285; J1100; J1170; J1335; J2250; J2543; J2704; J3010; J7030; J7799; U0003